=== PATIENT | male | born 1960 | race Caucasian/White ===

== ENCOUNTER 2016-07-02 13:44 | Inpatient (IN) | payer MEDICARE, MEDICAID ==
[2016-07-02] MEDS ORDERED: Albuterol/Ipratropium NEB.SOL* Albuterol 2.5 MG/Ipratropium 0.5 MG 3 ML INH ONE (13:57)
[2016-07-02] MEDS ORDERED: methylPREDNISolone 125 MG* 2 ML VIAL IV ONE (13:57)
[2016-07-02 14:18] LABS: Hematocrit 43 % (42-52); Hemoglobin 14.3 g/dl (14.0-18.0); Mean Corpuscular HGB Conc 33 g/dl (31-36); Mean Corpuscular Hemoglobin 30 pg (27-31); Mean Corpuscular Volume 91 fL (80-94); Mean Platelet Volume 8 um3 (7.4-10.4); Red Blood Count 4.76 10^6/ul (4.0-5.4); Red Cell Distribution Width 14 % (10.5-15); White Blood Count 11.4 10^3/ul (3.5-10.8)
[2016-07-02 14:37] LABS: PCO2 Arterial 72 mmHg (35-45)
[2016-07-02 14:37] LABS: BUN/Creatinine Ratio 19.8 (8-20); C Reactive Protein 7.83 mg/L (< 5.00); Calcium 9.2 mg/dL (8.6-10.3); EGFR African American 126.8 (>60); EGFR Non-African American 98.6 (>60); Globulin 2.9 g/dL (2-4); Potassium 4.6 mmol/L (3.5-5.0); Total Bilirubin 0.3 mg/dL (0.2-1.0); Total Protein 6.9 g/dL (6.4-8.9)
[2016-07-02 14:41] LABS: Troponin I 0.01 ng/mL (<0.04)
--- NOTE | 2016-07-02 14:49 | RAD ---
INDICATION: Chest pain. Short of breath COMPARISON: Chest x-ray March 23, 2016 TECHNIQUE: PA and lateral dual-energy views were obtained. FINDINGS: Bones/Soft Tissues: There are no acute bony findings. Cardiomediastinal: The cardiomediastinal silhouette is normal. The central pulmonary vessels and interstitium are prominent compatible with mild interstitial congestion Lungs: There are no infiltrates. Pleura: There are no pleural effusions. Other: None IMPRESSION: MILD INTERSTITIAL CONGESTION.
[2016-07-02] MEDS ORDERED: Albuterol 2.5 MG/3 ML NEB.SOL* (0.083%) INH PRN (15:41)
[2016-07-02] MEDS ORDERED: Ondansetron INJ* 2 MG/ML VIAL IV PRN (15:41)
[2016-07-02] MEDS ORDERED: NS 0.9% 1000 ML* 1,000 ML IV SCH (15:45)
[2016-07-02 15:59] LABS: EPAP 5; FIO2 40; IPAP 14; Resp Rate 14
[2016-07-02 16:02] LABS: PCO2 Arterial 68 mmHg (35-45)
[2016-07-02] MEDS: methylPREDNISolone 125 MG* 2 ML VIAL IV SCH ×2 (16:05→23:42)
[2016-07-02] MEDS ORDERED: Azithromycin IV* 500 MG ADVAN VIAL IVPB ONE (16:12)
--- NOTE | 2016-07-02 16:12 | ED ---
Mathieu Costello Erika, scribed for Jimmy Quezada MD on 07/02/16 at 1359 . Altered Mental Status - HPI Summary HPI Summary: Patient is a 56-year-old male presenting to the ED with a CC of possible AMS. Pt reports that he developed chest pain and SOB last night, but is unable to describe the pain. Pt also states he was "incoherent" this morning. When asked to further describe this, he just states "I got up early this morning." Hx diabetes, HTN, paranoid schizophrenia. Pt uses 1L O2 at home. LEVEL 5 CAVEAT - AMS. - History Of Current Complaint Stated Complaint: GENERAL ILLNESS Time Seen by Provider: 07/02/16 13:50 Hx Obtained From: Patient Hx From Patient Unobtainable Due To: Altered Mental Status Timing: Constant Severity Currently: Moderate Character: Confusion Aggravating Factor(s): Unknown Alleviating Factor(s): Unknown - Allergies/Home Medications Allergies/Adverse Reactions: Allergies Allergy/AdvReac Type Severity Reaction Status Date / Time Fish Allergy Allergy Unknown Verified 11/12/15 10:32 Reaction Details Haloperidol [From Haldol] Allergy Unknown Verified 11/12/15 10:32 Reaction Details Home Medications: Home Medications OLANzapine TAB* [ZyPREXA TAB*] 20 mg PO BEDTIME 07/02/16 [History Confirmed ] Paliperidone SUSTENNA* [Invega Sustenna*] 156 mg IM Q30D 07/02/16 [History Confirmed 07/02/16] Sertraline* [Zoloft*] 200 mg PO DAILY 07/02/16 [History Confirmed 07/02/16] PMH/Surg Hx/FS Hx/Imm Hx Endocrine/Hematology History: Reports: Hx Diabetes, Hx Thyroid Disease - hypo Cardiovascular History: Reports: Hx Hypercholesterolemia, Hx Hypertension - ON MEDS Denies: Other Cardiovascular Problems/Disorders Respiratory History: Reports: Hx Asthma, Hx Chronic Obstructive Pulmonary Disease (COPD), Hx Pneumonia Denies: Other Respiratory Problems/Disorders GI History: Denies: Other GI Disorders History: Reports: Hx Kidney Stones - 18 YRS AGO Musculoskeletal History: Reports: Hx Arthritis - BACK Sensory History: Reports: Hx Cataracts - PRITI, Hx Vision Problem - GLASSES Denies: Hx Hearing Aid Opthamlomology History: Reports: Hx Cataracts - PRITI, Hx Vision Problem - GLASSES Neurological History: Denies: Other Neuro Impairments/Disorders Psychiatric History: Reports: Hx Anxiety - ON MEDS, Hx Depression - MEDS, Hx Schizophrenia - Paranoid Denies: Hx Eating Disorder, Hx of Violent Episodes Against Others - Surgical History Surgery Procedure, Year, and Place: LEFT THUMB AGE 17 Hx Anesthesia Reactions: No - Family History Known Family History: Positive: Diabetes - Father, Other - negative hyperthermia , negative adverse reaction to anesthesia - Social History Alcohol Use: Occasionally Alcohol Amount: 12 beers a week Hx Substance Use: No Substance Use Type: Reports: None Hx Tobacco Use: Yes Smoking Status (MU): Heavy Every Day Tobacco Smoker Type: Cigarettes Amount Used/How Often: 2PPD Length of Time of Smoking/Using Tobacco: 30 years + Have You Smoked in the Last Year: Yes Review of Systems - ROS Summary Review of Systems Summary: LEVEL 5 CAVEAT - AMS. Positive: Chest Pain Positive: Shortness Of Breath Neurological: Other - AMS, confusion All Other Systems Reviewed And Are Negative: No Physical Exam - Summary Physical Exam Summary: VITAL SIGNS: Reviewed. GENERAL: Patient is an obese male who is lethargic and comfortable in the stretcher. Patient is not in any acute respiratory distress. HEAD AND FACE: No signs of trauma. No ecchymosis, hematomas or skull depressions. EYES: PERRLA, EOMI x 2 EARS: Hearing grossly intact. MOUTH: Oropharynx within normal limits. NECK: Supple, trachea is midline, no adenopathy, no JVD CHEST: Symmetric, no tenderness at palpation LUNGS: Clear to auscultation bilaterally. No wheezing or crackles. CVS: Regular rate and rhythm, S1 and S2 present, no murmurs or gallops appreciated. ABDOMEN: Soft, non-tender. Signs of distention secondary to obesity. Bowel sounds are normal. EXTREMITIES: FROM in all major joints, no edema, no cyanosis or clubbing. NEURO: Alert and oriented x 3. but he is lethargic. No acute neurological deficits. Speech is normal and follows commands. SKIN: Dry and warm Triage Information Reviewed: Yes Vital Signs On Initial Exam: Temp Pulse Resp BP Pulse Ox 97.9 F 84 18 115/65 95 07/02/16 13:45 07/02/16 14:10 07/02/16 13:45 07/02/16 13:45 07/02/16 14:10 Vital Signs Reviewed: Yes Completion Of Physical Exam Limited Due To: Altered Mental Status, Level 5 Diagnostics - Vital Signs Vital Signs Temp Pulse Resp BP Pulse Ox 07/02/16 15:54 85 17 98 07/02/16 14:52 85 16 96 07/02/16 14:10 84 95 07/02/16 13:45 97.9 F 82 18 115/65 94 - Laboratory Lab Results: Lab Results 07/02/16 07/02/16 07/02/16 Range/Units 14:03 14:03 14:03 WBC 11.4 H (3.5-10.8) 10^3/ul RBC 4.76 (4.0-5.4) 10^6/ul Hgb 14.3 (14.0-18.0) g/dl Hct 43 (42-52) % MCV 91 (80-94) fL MCH 30 (27-31) pg MCHC 33 (31-36) g/dl RDW 14 (10.5-15) % Plt Count 232 (150-450) 10^3/ul MPV 8 (7.4-10.4) um3 Neut % (Auto) 81.3 (38-83) % Lymph % (Auto) 10.7 L (25-47) % [place] % (Auto) 5.3 (1-9) % Eos % (Auto) 1.8 (0-6) % Baso % (Auto) 0.9 (0-2) % Absolute Neuts (auto) 9.3 H (1.5-7.7) 10^3/ul Absolute Lymphs (auto) 1.2 (1.0-4.8) 10^3/ul Absolute Monos (auto) 0.6 (0-0.8) 10^3/ul Absolute Eos (auto) 0.2 (0-0.6) 10^3/ul Absolute Basos (auto) 0.1 (0-0.2) 10^3/ul Absolute Nucleated RBC 0.01 10^3/ul Nucleated RBC % 0.1 Patient Temperature ABG pH (7.35-7.45) ABG pCO2 (35-45) mmHg ABG pO2 (80-100) mmHg ABG HCO3 (19-31) mmol/L ABG O2 Saturation (95-98) % ABG Base Excess (-2.0-2.0) Respiration Rate O2 Delivery Device Ventilator Type Vent Mode FiO2 Inspiratory Time PEEP Pressure Support Pressure Control EPAP IPAP BiPAP Sodium 130 L (133-145) mmol/L Potassium 4.6 (3.5-5.0) mmol/L Chloride 96 L (101-111) mmol/L Carbon Dioxide 31 (22-32) mmol/L Anion Gap 3 (2-11) mmol/L BUN 16 (6-24) mg/dL Creatinine 0.81 (0.67-1.17) mg/dL Est GFR ( Amer) 126.8 (>60) Est GFR (Non-Af Amer) 98.6 (>60) BUN/Creatinine Ratio 19.8 (8-20) Glucose 138 H (70-100) mg/dL Lactic Acid < 0.3 L (0.5-2.0) mmol/L Calcium 9.2 (8.6-10.3) mg/dL Total Bilirubin 0.30 (0.2-1.0) mg/dL AST 16 (13-39) U/L ALT 15 (7-52) U/L Alkaline Phosphatase 57 (34-104) U/L Total Creatine Kinase 143 (10-223) U/L CK-MB (CK-2) 4.7 (0.6-6.3) ng/mL Myoglobin 50.3 (17.4-105.7) ng/mL Troponin I 0.01 (<0.04) ng/mL C-Reactive Protein 7.83 H (< 5.00) mg/L B-Natriuretic Peptide ( - 100) pg/mL Total Protein 6.9 (6.4-8.9) g/dL Albumin 4.0 (3.2-5.2) g/dL Globulin 2.9 (2-4) g/dL Albumin/Globulin Ratio 1.4 (1-3) 07/02/16 07/02/16 07/02/16 Range/Units 14:03 14:08 15:53 WBC (3.5-10.8) 10^3/ul RBC (4.0-5.4) 10^6/ul Hgb (14.0-18.0) g/dl Hct (42-52) % MCV (80-94) fL MCH (27-31) pg MCHC (31-36) g/dl RDW (10.5-15) % Plt Count (150-450) 10^3/ul MPV (7.4-10.4) um3 Neut % (Auto) (38-83) % Lymph % (Auto) (25-47) % [place] % (Auto) (1-9) % Eos % (Auto) (0-6) % Baso % (Auto) (0-2) % Absolute Neuts (auto) (1.5-7.7) 10^3/ul Absolute Lymphs (auto) (1.0-4.8) 10^3/ul Absolute Monos (auto) (0-0.8) 10^3/ul Absolute Eos (auto) (0-0.6) 10^3/ul Absolute Basos (auto) (0-0.2) 10^3/ul Absolute Nucleated RBC 10^3/ul Nucleated RBC % Patient Temperature Not Reportable Not Reportable ABG pH 7.28 L Pending (7.35-7.45) ABG pCO2 72 H* Pending (35-45) mmHg ABG pO2 82 Pending (80-100) mmHg ABG HCO3 28.2 Pending (19-31) mmol/L ABG O2 Saturation 97.7 Pending (95-98) % ABG Base Excess 4.4 H Pending (-2.0-2.0) Respiration Rate Not Reportable 14 O2 Delivery Device 3 bipap Ventilator Type Not Reportable Not Reportable Vent Mode Not Reportable Not Reportable FiO2 Not Reportable 40 Inspiratory Time Not Reportable Not Reportable PEEP Not Reportable Not Reportable Pressure Support Not Reportable Not Reportable Pressure Control Not Reportable Not Reportable EPAP Not Reportable 5 IPAP Not Reportable 14 BiPAP Not Reportable Not Reportable Sodium (133-145) mmol/L Potassium (3.5-5.0) mmol/L Chloride (101-111) mmol/L Carbon Dioxide (22-32) mmol/L Anion Gap (2-11) mmol/L BUN (6-24) mg/dL Creatinine (0.67-1.17) mg/dL Est GFR ( Amer) (>60) Est GFR (Non-Af Amer) (>60) BUN/Creatinine Ratio (8-20) Glucose (70-100) mg/dL Lactic Acid (0.5-2.0) mmol/L Calcium (8.6-10.3) mg/dL Total Bilirubin (0.2-1.0) mg/dL AST (13-39) U/L ALT (7-52) U/L Alkaline Phosphatase (34-104) U/L Total Creatine Kinase (10-223) U/L CK-MB (CK-2) (0.6-6.3) ng/mL Myoglobin (17.4-105.7) ng/mL Troponin I (<0.04) ng/mL C-Reactive Protein (< 5.00) mg/L B-Natriuretic Peptide 15 ( - 100) pg/mL Total Protein (6.4-8.9) g/dL Albumin (3.2-5.2) g/dL Globulin (2-4) g/dL Albumin/Globulin Ratio (1-3) Result Diagrams: 07/02/16 14:03 07/02/16 14:03 Lab Statement: Any lab studies that have been ordered have been reviewed, and results considered in the medical decision making process. - Radiology CXR Radiology Interpretation Completed By: Radiologist - IMPRESSION: MILD INTERSTITIAL CONGESTION. - EKG 13:53 Cardiac Rate: NL - at 83 bpm EKG Rhythm: Sinus Rhythm EKG Interpretation: No ST elevation Altered Mental Statu Course/Dx - Course Assessment/Plan: Patient is a 56 y/o male who is lethargic and unable to give a good history. He is arausable and reports SOB and CP. He reports symptom since yesterday. Bloodwork WNL except WBC of 11.4, sodium of 130, and CRP of 7.83. CXR shows no acute pathology. Because of the lethargy of the pt, I did an ABG, and it shows the pt has CO2 retention. The pt was placed on BIPAP and given azithromycin since the pt has COPD. He is still aroausable and soing well in the BiPap. At this point I dont think he needs to be intubated. I discussed my PE and findings with Dr. Mariscal who accepted the patient for admission. Pt is hemodynamically stable. - Diagnoses Differential Diagnosis/HQI/PQRI: Hypoglycemia, Hypothermia, Intoxication Discharge Diagnoses: lethargy secondary to hypercapnia, Chest pain, COPD (chronic obstructive pulmonary disease), Hypoventilation associated with obesity syndrome - Provider Notifications Discussed Care Of Patient With: Dr. Mariscal (hospitalist) at 15:36 - agrees to admit Discharge - Discharge Plan Condition: Stable Disposition: ADMITTED TO [facility] Referrals: Chris Loyola MD [Primary Care Provider] - The documentation as recorded by the Mathieu lynne Erika accurately reflects the service I personally performed and the decisions made by , Jimmy Quezada MD.
[2016-07-02] MEDS: glipiZIDE TAB* 5 MG PO SCH (18:19)
[2016-07-02 19:34] LABS: Venous Bicarbonate HCO3 26.8 mmol/L (24-28)
[2016-07-02] MEDS: Docusate CAP* 100 MG PO SCH (20:24)
[2016-07-02] MEDS: OLANzapine TAB* 10 MG PO SCH (20:24)
[2016-07-02] MEDS: Acetaminophen TAB* 325 MG PO PRN (20:24)
[2016-07-02] MEDS: Atorvastatin* 20 MG TAB PO SCH (20:24)
[2016-07-02] MEDS: traZODone TAB* 50 MG TAB PO PRN (20:25)
--- NOTE | 2016-07-02 21:25 | HP ---
HISTORY AND PHYSICAL: DATE OF ADMISSION: 07/02/16 TIME OF MY EVALUATION: 3:30 p.m. PRIMARY CARE PROVIDER: Dr. Chris Loyola, [facility]. CHIEF COMPLAINT: Altered mental status, requesting mental health evaluation - hearing voices. HISTORY OF PRESENT ILLNESS: Mr. Mccallum is a medically complex 56-year-old gentleman with morbid obesity and BMI greater than 60 as well as chronic obstructive pulmonary disease as well as bipolar disease and asthma who presents to the emergency room with an altered mental status. He told the staff he was hearing voices and thought he needed a psychiatric evaluation. The patient was evaluated and found to be quite hypercarbic with a blood gas ultimately demonstrating a PCO2 of 72, arterial pH of 7.28 - incompletely compensated and altogether characteristic of acute hypercarbic respiratory failure with obtundation. The patient was urgently started on BiPAP -- 14 breaths per minute, 14/4 pressures, and 40% oxygen. The patient is comfortable with that setting. He was not able to answer many questions for me with the mask on in the emergency room. He did nod yes and no to basic questions, basically saying that he was agreeing that he was in his usual state of health until about 1 week prior when he felt progressive shortness of breath, then accompanying hallucinations which made him think it was an exacerbation of his schizophrenia. The patient is being placed in the ICU. A followup blood gas is pending at the time of this dictation and the patient has already been dosed with IV steroids and diagnosed with COPD exacerbation. PAST MEDICAL HISTORY: 1. COPD. 2. Asthma. 3. Anxiety. 4. Depression. 5. Schizophrenia. 6. Diabetes mellitus - [id number]. 7. Hypothyroidism - Synthroid replacement. 8. Chronic back pain. 9. Bipolar disorder. 10. Morbid obesity. 11. History of cardiac catheterization. 12. History of cataract extraction. 13. History of tooth extraction. 14. History of multiple pneumonias and previously hospitalized back in March for chronic obstructive pulmonary disease exacerbation. 15. History of ongoing tobacco abuse. 16. History of medical noncompliance as characterized during the hospitalization back in March 2016. OUTPATIENT MEDICATIONS: 1. Invega 156 mg intramuscularly monthly. 2. Levothyroxine 112 mcg daily. 3. Linagliptin/Tradjenta 5 mg by mouth daily. 4. Lisinopril 10 mg by mouth daily. 5. Zyprexa/olanzapine 20 mg by mouth at bedtime. 6. Sertraline/Zoloft 200 mg by mouth daily. 7. Simvastatin/Zocor 40 mg by mouth at bedtime. 8. Glipizide 5 mg by mouth twice daily with meals. 9. Trazodone 50 mg by mouth at bedtime. ALLERGIES: HALDOL/FISH. FAMILY HISTORY: Reviewed and noncontributory based on this presentation of a known patient with COPD and morbid obesity with hypercarbic respiratory failure. SOCIAL HISTORY: This patient is still smoking by report. He nodded, but did not quantify verbally because of his BiPAP. No alcohol use currently. This will be confirmed. No recreational drug use. The patient is disabled. He lives in the community. REVIEW OF SYSTEMS: A full review of systems was not accomplished. There were some basic questions asked. His presentation was really around his altered mental status and not many other symptoms were reported. PHYSICAL EXAMINATION GENERAL APPEARANCE: Morbidly obese, middle-aged man appears approximately stated age. No apparent distress at this time. He is breathing in sync with the BiPAP machine. He opens his eyes in response to questions, but is not communicative secondary to his current state. VITAL SIGNS: On admission, temperature 97.9 degrees Fahrenheit, pulse 80s and regular, respirations difficult to assess secondary to ongoing BiPAP. He is breathing in sync with a vent with a rate of approximately 16 to 20 breaths per minute. He is not in extremis. Oxygen saturation 94% currently on BiPAP settings as described below. Blood pressure 115/65. BiPAP settings: 14 breaths per minute (backup rate), pressure settings 14/5 mmHg, (IPAP/EPAP), 40% FIO2. HEENT: Oropharynx is clear. Mucous membranes are moist, but obscured by mask. NECK: Supple. No elevated JVD. He is obese. Landmarks are obscured. CHEST: Distant sounds again confounded by BiPAP machine. Could not listen posteriorly secondary to morbid obesity and current mental state. ABDOMEN: Morbidly obese, but nontender. Skin is dry and intact. EXTREMITIES: Without clubbing, cyanosis, or edema. NEUROLOGIC: Unable to fully assess, but moves all extremities spontaneously. PSYCH: Unable to assess secondary to BiPAP - known schizophrenia with anxiety and depression. LYMPHS: No adenopathy appreciated on exam. ADMISSION DATA: Arterial blood gas, 7.28/72/82 - 3 L nasal cannula - BiPAP started , 29/10; 40% - repeat ABGs pending now. White blood cell count 11.4, hemoglobin 14.3, platelets 232. Blood chemistry significant for sodium depressed at 130, potassium 4.6, chloride 96, bicarb 31, BUN 16, creatinine 0.81, glucose 138, lactic acid less than 0.3 (negative). LFTs normal. CRP elevated at 7.83. Albumin 4.0. Total protein preserved at 6.9. BNP 15. Chest x-ray shows no active disease in the pulmonary parenchyma, but potential mild interstitial congestion. IMPRESSION: Mr. Mccallum is a 56-year-old gentleman with known chronic obstructive pulmonary disease and morbid obesity who presents with hypercarbic respiratory failure with PCO2 of approximately 80 with obtundation and an acid base analysis signifying this is an acute process which would certainly explain his altered mental status. 1. Acute hypercarbic respiratory failure: We will admit the patient to the ICU for close monitoring and acute BiPAP with settings described above. A repeat ABG is in process and we will check another VBG in 2 hours to ensure the patient is not further retaining carbon dioxide. This does not seem to be a problem with his ability to oxygenate and the patient seems to be having a chronic obstructive pulmonary disease exacerbation which he suffered back in March 2016. We will start the patient on IV steroids, 60 mg IV Solu-Medrol every 8 hours with reevaluation and assessment and better pulmonary exams when the patient is off BiPAP. The patient will also receive IV azithromycin to treat any atypical organism that may be exacerbating his COPD. 2. Hypothyroidism: We will continue levothyroxine at outpatient dosing. 3. Schizophrenia - unclear whether his hallucinations have anything to do with his schizophrenia. It seems most likely that his hallucinations are secondary to his hypercarbia, but one cannot be certain. So, we will reevaluate when his ABG/pCO2 is better. Continue olanzapine for now. 4. Pain - continue trazodone as previously prescribed. 5. Diabetes - continue Tradjenta and glipizide as per outpatient regimen. Diabetic diet when he is tolerating oral diet. 6. N.p.o. for now. 7. Full code. 8. Frequent reassessments and psychiatric evaluation if need be when his respiratory status is stabilized. TIME SPENT: Total time taken to admit Mr. Mccallum was 75 minutes, greater than half the time spent in the emergency room going over the history and physical examination, explaining the plan of care to the patient at the bedside. He agreed with my plan by nodding although he was unable to speak with me because of the BiPAP. CC: Dr. Chris Loyola * [id number]/CPS #: [id number] [facility]
[2016-07-02] MEDS: Heparin VIAL(*) 5000 UNITS/ML VIAL (FIVE THOUSAND) SUBCUT SCH (22:36)
[2016-07-03] MEDS: Levothyroxine TAB* 112 MCG TAB PO SCH (05:36)
[2016-07-03] MEDS: Heparin VIAL(*) 5000 UNITS/ML VIAL (FIVE THOUSAND) SUBCUT SCH ×3 (05:36→22:06)
[2016-07-03 06:16] LABS: Hematocrit 45 % (42-52); Hemoglobin 14.7 g/dl (14.0-18.0); Mean Corpuscular HGB Conc 33 g/dl (31-36); Mean Corpuscular Hemoglobin 30 pg (27-31); Mean Corpuscular Volume 91 fL (80-94); Mean Platelet Volume 8 um3 (7.4-10.4); Red Blood Count 4.95 10^6/ul (4.0-5.4); Red Cell Distribution Width 14 % (10.5-15); White Blood Count 12.2 10^3/ul (3.5-10.8)
[2016-07-03 06:38] LABS: BUN/Creatinine Ratio 25.3 (8-20); Calcium 9.1 mg/dL (8.6-10.3); EGFR African American 105.5 (>60); Potassium 4.9 mmol/L (3.5-5.0)
[2016-07-03] MEDS ORDERED: Dextrose 50% Syringe 50 ML* 25 GM/50 ML SYRINGE IV PUSH PRN (07:54)
--- NOTE | 2016-07-03 08:16 | PN ---
Subjective Date of Service: 07/03/16 Interval History: He states he last smoked about 10 hours ago, also that he has dark sputum. Objective Active Medications: Acetaminophen (Tylenol Tab*) 650 mg PO Q4H PRN PRN Reason: FEVER/PAIN Last Admin: 07/02/16 20:24 Dose: 650 mg Albuterol (Ventolin 2.5 Mg/3 Ml Neb.Manisha*) 2.5 mg INH [id number] AWAKE PRN PRN Reason: sob/wheezing Atorvastatin Calcium (Lipitor*) 40 mg PO BEDTIME [facility] Last Admin: 07/02/16 20:24 Dose: 40 mg Dextrose (D50w Syringe 50 Ml*) 12.5 gm IV PUSH .FOR FS < 60 - SS PRN PRN Reason: FS < 60 Docusate Sodium (Colace Cap*) 100 mg PO BID [facility] Last Admin: 07/02/16 20:24 Dose: 100 mg Glipizide (Glucotrol Tab*) 5 mg PO BID AC [facility] Last Admin: 07/02/16 18:19 Dose: Not Given Guaifenesin (Robitussin*) 10 ml PO QID [facility] Heparin Sodium (Porcine) (Heparin Vial(*)) 5,000 units SUBCUT Q8HR [facility] Last Admin: 07/03/16 05:36 Dose: 5,000 units Insulin Human Lispro (Humalog*) 0 units SUBCUT ACHS [facility] PRN Reason: Protocol Levothyroxine Sodium (Synthroid Tab*) 112 mcg PO 0600 [facility] Last Admin: 07/03/16 05:36 Dose: 112 mcg Linagliptin (Tradjenta (Nf)) 5 mg PO DAILY [facility] Lisinopril (Prinivil Tab*) 10 mg PO DAILY [facility] Olanzapine (Zyprexa Tab*) 20 mg PO BEDTIME [facility] Last Admin: 07/02/16 20:24 Dose: 20 mg Ondansetron HCl (Zofran Inj*) 4 mg IV Q4H PRN PRN Reason: NAUSEA/VOMITING Prednisone (Deltasone Tab*) 60 mg PO DAILY [facility] Sertraline HCl (Zoloft*) 200 mg PO DAILY [facility] Trazodone HCl (Desyrel Tab*) 50 mg PO BEDTIME PRN PRN Reason: SLEEP Last Admin: 07/02/16 20:25 Dose: 50 mg Vital Signs 0107/02/16 07/02/16 15:54 16:00 16:16 Temperature Pulse Rate 85 82 76 Respiratory 17 16 17 Rate Blood Pressure (mmHg) O2 Sat by Pulse 98 96 Oximetry 07/02/16 07/02/16 07/02/16 16:41 16:48 16:52 Temperature 97.1 F Pulse Rate 73 75 79 Respiratory 8 14 26 Rate Blood Pressure 98/36 71/52 98/36 (mmHg) O2 Sat by Pulse 93 91 94 Oximetry 07/02/16 07/02/16 07/02/16 17:00 17:30 17:32 Temperature 97.1 F Pulse Rate 75 86 Respiratory 16 8 14 Rate Blood Pressure 84/49 94/48 (mmHg) O2 Sat by Pulse 93 90 Oximetry 07/02/16 07/02/16 07/02/16 18:00 18:30 19:00 Temperature 97.1 F Pulse Rate 81 83 82 Respiratory 14 23 14 Rate Blood Pressure 101/52 119/62 126/74 (mmHg) O2 Sat by Pulse 93 94 93 Oximetry 07/02/16 07/02/16 07/02/16 19:30 19:48 20:00 Temperature 97.4 F Pulse Rate 78 96 Respiratory 12 14 Rate Blood Pressure 99/53 164/75 (mmHg) O2 Sat by Pulse 95 95 Oximetry 07/02/16 07/02/16 07/02/16 21:00 22:00 22:35 Temperature Pulse Rate 88 88 86 Respiratory 17 13 11 Rate Blood Pressure 140/68 120/58 (mmHg) O2 Sat by Pulse 88 94 93 Oximetry 07/02/16 07/02/16 07/03/16 23:00 23:41 00:00 Temperature 97.7 F Pulse Rate 82 93 Respiratory 11 20 Rate Blood Pressure 101/50 (mmHg) O2 Sat by Pulse 93 94 Oximetry 07/03/16 07/03/16 07/03/16 00:02 01:00 02:00 Temperature Pulse Rate 83 81 86 Respiratory 18 13 19 Rate Blood Pressure 127/54 123/54 (mmHg) O2 Sat by Pulse 96 98 99 Oximetry 07/03/16 07/03/16 07/03/16 02:27 02:48 03:00 Temperature Pulse Rate 80 71 79 Respiratory 21 15 11 Rate Blood Pressure 99/88 104/51 (mmHg) O2 Sat by Pulse 98 99 97 Oximetry 07/03/16 07/03/16 07/03/16 04:00 05:00 06:00 Temperature 98.5 F Pulse Rate 64 70 76 Respiratory 12 13 13 Rate Blood Pressure 119/65 123/67 (mmHg) O2 Sat by Pulse 96 96 98 Oximetry 07/03/16 07:26 Temperature 97.0 F Pulse Rate Respiratory Rate Blood Pressure (mmHg) O2 Sat by Pulse Oximetry Oxygen Devices in Use Now: CPAP/BiPAP Appearance: Alert, on R side in ICU bed. Neutral affect. Looks comfortable. No cough during my visit. Eyes: No Scleral Icterus Ears/Nose/Mouth/Throat: Clear Oropharnyx, Mucous Membranes Moist Neck: NL Appearance and Movements; NL JVP, No Thyroid Enlargement, Masses Respiratory: Symmetrical Chest Expansion and Respiratory Effort, Clear to Percussion - Diminished BS BL Cardiovascular: NL Sounds; No Murmurs; No JVD, RRR, No Edema, - Extremities: No Edema, No Clubbing, Cyanosis, - Skin: No Rash or Ulcers, No Nodules or Sclerosis, - Neurological: Alert and Oriented x 3, NL Sensation - Flat affect Result Diagrams: 07/03/16 05:50 07/03/16 05:50 Additional Lab and Data: Lab Results 07/02/16 07/02/16 07/02/16 Range/Units 14:03 14:03 14:03 WBC 11.4 H (3.5-10.8) 10^3/ul RBC 4.76 (4.0-5.4) 10^6/ul Hgb 14.3 (14.0-18.0) g/dl Hct 43 (42-52) % MCV 91 (80-94) fL MCH 30 (27-31) pg MCHC 33 (31-36) g/dl RDW 14 (10.5-15) % Plt Count 232 (150-450) 10^3/ul MPV 8 (7.4-10.4) um3 Neut % (Auto) 81.3 (38-83) % Lymph % (Auto) 10.7 L (25-47) % [place] % (Auto) 5.3 (1-9) % Eos % (Auto) 1.8 (0-6) % Baso % (Auto) 0.9 (0-2) % Absolute Neuts (auto) 9.3 H (1.5-7.7) 10^3/ul Absolute Lymphs (auto) 1.2 (1.0-4.8) 10^3/ul Absolute Monos (auto) 0.6 (0-0.8) 10^3/ul Absolute Eos (auto) 0.2 (0-0.6) 10^3/ul Absolute Basos (auto) 0.1 (0-0.2) 10^3/ul Absolute Nucleated RBC 0.01 10^3/ul Nucleated RBC % 0.1 Patient Temperature ABG pH (7.35-7.45) ABG pCO2 (35-45) mmHg ABG pO2 (80-100) mmHg ABG HCO3 (19-31) mmol/L ABG O2 Saturation (95-98) % ABG Base Excess (-2.0-2.0) Respiration Rate O2 Delivery Device Ventilator Type Vent Mode FiO2 Inspiratory Time PEEP Pressure Support Pressure Control EPAP IPAP BiPAP Sodium 130 L (133-145) mmol/L Potassium 4.6 (3.5-5.0) mmol/L Chloride 96 L (101-111) mmol/L Carbon Dioxide 31 (22-32) mmol/L Anion Gap 3 (2-11) mmol/L BUN 16 (6-24) mg/dL Creatinine 0.81 (0.67-1.17) mg/dL Est GFR ( Amer) 126.8 (>60) Est GFR (Non-Af Amer) 98.6 (>60) BUN/Creatinine Ratio 19.8 (8-20) Glucose 138 H (70-100) mg/dL Lactic Acid < 0.3 L (0.5-2.0) mmol/L Calcium 9.2 (8.6-10.3) mg/dL Total Bilirubin 0.30 (0.2-1.0) mg/dL AST 16 (13-39) U/L ALT 15 (7-52) U/L Alkaline Phosphatase 57 (34-104) U/L Total Creatine Kinase 143 (10-223) U/L CK-MB (CK-2) 4.7 (0.6-6.3) ng/mL Myoglobin 50.3 (17.4-105.7) ng/mL Troponin I 0.01 (<0.04) ng/mL C-Reactive Protein 7.83 H (< 5.00) mg/L B-Natriuretic Peptide ( - 100) pg/mL Total Protein 6.9 (6.4-8.9) g/dL Albumin 4.0 (3.2-5.2) g/dL Globulin 2.9 (2-4) g/dL Albumin/Globulin Ratio 1.4 (1-3) 07/02/16 07/02/16 07/02/16 Range/Units 14:03 14:08 15:53 WBC (3.5-10.8) 10^3/ul RBC (4.0-5.4) 10^6/ul Hgb (14.0-18.0) g/dl Hct (42-52) % MCV (80-94) fL MCH (27-31) pg MCHC (31-36) g/dl RDW (10.5-15) % Plt Count (150-450) 10^3/ul MPV (7.4-10.4) um3 Neut % (Auto) (38-83) % Lymph % (Auto) (25-47) % Hardy % (Auto) (1-9) % Eos % (Auto) (0-6) % Baso % (Auto) (0-2) % Absolute Neuts (auto) (1.5-7.7) 10^3/ul Absolute Lymphs (auto) (1.0-4.8) 10^3/ul Absolute Monos (auto) (0-0.8) 10^3/ul Absolute Eos (auto) (0-0.6) 10^3/ul Absolute Basos (auto) (0-0.2) 10^3/ul Absolute Nucleated RBC 10^3/ul Nucleated RBC % Patient Temperature Not Reportable Not Reportable ABG pH 7.28 L Pending (7.35-7.45) ABG pCO2 72 H* Pending (35-45) mmHg ABG pO2 82 Pending (80-100) mmHg ABG HCO3 28.2 Pending (19-31) mmol/L ABG O2 Saturation 97.7 Pending (95-98) % ABG Base Excess 4.4 H Pending (-2.0-2.0) Respiration Rate Not Reportable 14 O2 Delivery Device 3 bipap Ventilator Type Not Reportable Not Reportable Vent Mode Not Reportable Not Reportable FiO2 Not Reportable 40 Inspiratory Time Not Reportable Not Reportable PEEP Not Reportable Not Reportable Pressure Support Not Reportable Not Reportable Pressure Control Not Reportable Not Reportable EPAP Not Reportable 5 IPAP Not Reportable 14 BiPAP Not Reportable Not Reportable Sodium (133-145) mmol/L Potassium (3.5-5.0) mmol/L Chloride (101-111) mmol/L Carbon Dioxide (22-32) mmol/L Anion Gap (2-11) mmol/L BUN (6-24) mg/dL Creatinine (0.67-1.17) mg/dL Est GFR ( Amer) (>60) Est GFR (Non-Af Amer) (>60) BUN/Creatinine Ratio (8-20) Glucose (70-100) mg/dL Lactic Acid (0.5-2.0) mmol/L Calcium (8.6-10.3) mg/dL Total Bilirubin (0.2-1.0) mg/dL AST (13-39) U/L ALT (7-52) U/L Alkaline Phosphatase (34-104) U/L Total Creatine Kinase (10-223) U/L CK-MB (CK-2) (0.6-6.3) ng/mL Myoglobin (17.4-105.7) ng/mL Troponin I (<0.04) ng/mL C-Reactive Protein (< 5.00) mg/L B-Natriuretic Peptide 15 ( - 100) pg/mL Total Protein (6.4-8.9) g/dL Albumin (3.2-5.2) g/dL Globulin (2-4) g/dL Albumin/Globulin Ratio (1-3) Assess/Plan/Problems-Billing Assessment: - Patient Problems (1) COPD exacerbation Current Visit: No Status: Acute Code(s): J44.1 - CHRONIC OBSTRUCTIVE PULMONARY DISEASE W (ACUTE) EXACERBATION SNOMED Code(s): 184351741 Comment: Prednisone taper. Continue Spiriva, Dulera, prn albuterol. Continue Azithromycin. Overnight oximetry off NIPPV. Diet ordered. CO2 retention noted. (2) DM type 2 (diabetes mellitus, type 2) Current Visit: No Status: Chronic Priority: Medium Comment: Glipizide, Lispro by SS ordered. (3) Tobacco abuse Current Visit: No Status: Chronic Code(s): Z72.0 - TOBACCO USE SNOMED Code (s): 982268063 Comment: Pt advised to quit smoking and avoid second hand smoke. (4) Hypothyroidism Current Visit: No Status: Acute Code(s): E03.9 - HYPOTHYROIDISM, UNSPECIFIED SNOMED Code(s): 81440477 Comment: Continue synthroid. TSH wnl 01/20/16. Addon TSH ordered. (5) Morbid obesity Current Visit: No Status: Chronic Code(s): E66.01 - MORBID (SEVERE) OBESITY DUE TO EXCESS CALORIES SNOMED Code(s): 651256129 Comment: BMI 52.8.
[2016-07-03] MEDS ORDERED: predniSONE TAB* 10 MG PO SCH (09:00)
[2016-07-03] MEDS: Docusate CAP* 100 MG PO SCH ×2 (09:12→22:07)
[2016-07-03] MEDS: Sertraline* 100 MG TAB PO SCH (09:12)
[2016-07-03] MEDS: Lisinopril TAB* 10 MG PO SCH (09:12)
[2016-07-03] MEDS: Linagliptin (NF) 5 MG TAB PO SCH (09:13)
[2016-07-03 09:23] LABS: TSH (Thyroid Stimulating Horm) 1.91 mcIU/mL (0.34-5.60)
[2016-07-03] MEDS: glipiZIDE TAB* 5 MG PO SCH ×2 (09:26→16:12)
[2016-07-03] MEDS: guaiFENesin LIQ* 100 MG/5 ML UDC PO SCH ×4 (09:26→22:07)
[2016-07-03] MEDS: Insulin LISPRO* 1 UNITS UNIT SUBCUT SCH ×4 (09:31→22:07)
--- NOTE | 2016-07-03 12:31 | CONSULT ---
Identification - Patient Identification Reason for Psychiatric Consultation: Other - Mental status change. -: Patient is a 56 year old, M admitted on 07/02/16. - MHU Identification Employment Status: Disabled Hx Psychiatric Hospitalization: Yes - Many on [facility] Arrived to Hospital Via: Ambulance History - Objective HPI: Mr. Nelson known to psychiatry from prior admissions to is admitted to ICU with sudden physical health change resulting in mental status change. The clinical presentation, physical examination, Radiological and lab results indicate a state of hypercarbia( PCO2 of 72 and arterial pH 7.28) Patient at this time remains mildly delirious and denies any major mental health problems which needs immediate attention. He denies any violent thoughts towards self or others. Reliability of his answer may be questionable and will improve as his acute medical condition resolve. If not please contact us again for a f/u assessment. May resume all home psychotropic meds as he tolerates. Thank for the consult request. Lab Results: Laboratory Tests 07/02/16 07/02/16 07/03/16 15:53 19:25 05:50 WBC RBC Hgb Hct MCV MCH MCHC RDW Plt Count MPV Neut % (Auto) Lymph % (Auto) [place] % (Auto) Eos % (Auto) Baso % (Auto) Absolute Neuts (auto) Absolute Lymphs (auto) Absolute Monos (auto) Absolute Eos (auto) Absolute Basos (auto) Absolute Nucleated RBC Nucleated RBC % Patient Temperature Not Reportable ABG pH 7.22 L ABG pCO2 68 H ABG pO2 118 H ABG HCO3 23.9 ABG O2 Saturation 99.0 H ABG Base Excess -1.2 VBG pH 7.25 L VBG pCO2 76 H VBG pO2 42 VBG HCO3 26.8 VBG O2 Saturation 79.0 VBG Base Excess 3.3 Respiration Rate 14 O2 Delivery Device bipap Ventilator Type Not Reportable Vent Mode Not Reportable FiO2 40 Inspiratory Time Not Reportable PEEP Not Reportable Pressure Support Not Reportable Pressure Control Not Reportable EPAP 5 IPAP 14 BiPAP Not Reportable Sodium 134 Potassium 4.9 Chloride 96 L Carbon Dioxide 35 H Anion Gap 3 BUN 24 Creatinine 0.95 Est GFR ( Amer) 105.5 Est GFR (Non-Af Amer) 82.0 BUN/Creatinine Ratio 25.3 H Glucose 211 H Lactic Acid Calcium 9.1 07/03/16 07/03/16 05:50 05:50 WBC 12.2 H RBC 4.95 Hgb 14.7 Hct 45 MCV 91 MCH 30 MCHC 33 RDW 14 Plt Count 207 MPV 8 Neut % (Auto) 95.6 H Lymph % (Auto) 3.2 L [place] % (Auto) 1.1 Eos % (Auto) 0 Baso % (Auto) 0.1 Absolute Neuts (auto) 11.6 H Absolute Lymphs (auto) 0.4 L Absolute Monos (auto) 0.1 Absolute Eos (auto) 0 Absolute Basos (auto) 0 Absolute Nucleated RBC 0 Nucleated RBC % 0 Patient Temperature ABG pH ABG pCO2 ABG pO2 ABG HCO3 ABG O2 Saturation ABG Base Excess VBG pH VBG pCO2 VBG pO2 VBG HCO3 VBG O2 Saturation VBG Base Excess Respiration Rate O2 Delivery Device Ventilator Type Vent Mode FiO2 Inspiratory Time PEEP Pressure Support Pressure Control EPAP IPAP BiPAP Sodium Potassium Chloride Carbon Dioxide Anion Gap BUN Creatinine Est GFR ( Amer) Est GFR (Non-Af Amer) BUN/Creatinine Ratio Glucose Lactic Acid 0.9 Calcium Plan - Treatment Plan Medications: Current Medications Acetaminophen (Tylenol Tab*) 650 mg PO Q4H PRN PRN Reason: FEVER/PAIN Last Admin: 07/02/16 20:24 Dose: 650 mg Albuterol (Ventolin 2.5 Mg/3 Ml Neb.Manisha*) 2.5 mg INH [id number] AWAKE PRN PRN Reason: sob/wheezing Atorvastatin Calcium (Lipitor*) 40 mg PO BEDTIME [facility] Last Admin: 07/02/16 20:24 Dose: 40 mg Dextrose (D50w Syringe 50 Ml*) 12.5 gm IV PUSH .FOR FS < 60 - SS PRN PRN Reason: FS < 60 Docusate Sodium (Colace Cap*) 100 mg PO BID [facility] Last Admin: 07/03/16 09:12 Dose: 100 mg Glipizide (Glucotrol Tab*) 5 mg PO BID AC [facility] Last Admin: 07/03/16 09:26 Dose: 5 mg Guaifenesin (Robitussin*) 10 ml PO QID [facility] Last Admin: 07/03/16 09:26 Dose: 10 ml Heparin Sodium (Porcine) (Heparin Vial(*)) 5,000 units SUBCUT Q8HR [facility] Last Admin: 01/16/17 05:36 Dose: 5,000 units Insulin Human Lispro (Humalog*) 0 units SUBCUT ACHS [facility] PRN Reason: Protocol Last Admin: 07/03/16 09:31 Dose: 6 unit Levothyroxine Sodium (Synthroid Tab*) 112 mcg PO 0600 [facility] Last Admin: 07/03/16 05:36 Dose: 112 mcg Linagliptin (Tradjenta (Nf)) 5 mg PO DAILY [facility] Last Admin: 07/03/16 09:13 Dose: Not Given Lisinopril (Prinivil Tab*) 10 mg PO DAILY [facility] Last Admin: 07/03/16 09:12 Dose: 10 mg Olanzapine (Zyprexa Tab*) 20 mg PO BEDTIME [facility] Last Admin: 07/02/16 20:24 Dose: 20 mg Ondansetron HCl (Zofran Inj*) 4 mg IV Q4H PRN PRN Reason: NAUSEA/VOMITING Prednisone (Deltasone Tab*) 60 mg PO DAILY [facility] Last Admin: 07/03/16 09:12 Dose: 60 mg Sertraline HCl (Zoloft*) 200 mg PO DAILY [facility] Last Admin: 07/03/16 09:12 Dose: 200 mg Trazodone HCl (Desyrel Tab*) 50 mg PO BEDTIME PRN PRN Reason: SLEEP Last Admin: 07/02/16 20:25 Dose: 50 mg
[2016-07-03 13:17] LABS: Urine Bilirubin Negative (Negative); Urine Glucose 2+(150 mg/dL) (Negative); Urine Nitrite Negative (Negative)
[2016-07-03] MEDS: Acetaminophen TAB* 325 MG PO PRN (16:12)
[2016-07-03] MEDS: Atorvastatin* 20 MG TAB PO SCH (22:07)
[2016-07-03] MEDS: OLANzapine TAB* 10 MG PO SCH (22:07)
[2016-07-04] MEDS: Levothyroxine TAB* 112 MCG TAB PO SCH (07:23)
[2016-07-04] MEDS: Heparin VIAL(*) 5000 UNITS/ML VIAL (FIVE THOUSAND) SUBCUT SCH ×3 (07:23→22:05)
[2016-07-04] MEDS ORDERED: predniSONE TAB* 10 MG PO ONE (07:43)
--- NOTE | 2016-07-04 07:44 | PN ---
Subjective Date of Service: 07/04/16 Interval History: No new c/o. Cough better. Objective Active Medications: Acetaminophen (Tylenol Tab*) 650 mg PO Q4H PRN PRN Reason: FEVER/PAIN Last Admin: 07/03/16 16:12 Dose: 650 mg Albuterol (Ventolin 2.5 Mg/3 Ml Neb.Manisha*) 2.5 mg INH RT.[id number] AWAKE PRN PRN Reason: sob/wheezing Atorvastatin Calcium (Lipitor*) 40 mg PO BEDTIME [facility] Last Admin: 07/03/16 22:07 Dose: 40 mg Dextrose (D50w Syringe 50 Ml*) 12.5 gm IV PUSH .FOR FS < 60 - SS PRN PRN Reason: FS < 60 Docusate Sodium (Colace Cap*) 100 mg PO BID [facility] Last Admin: 07/03/16 22:07 Dose: 100 mg Glipizide (Glucotrol Tab*) 5 mg PO BID AC [facility] Last Admin: 07/03/16 16:12 Dose: 5 mg Guaifenesin (Robitussin*) 10 ml PO QID [facility] Last Admin: 07/03/16 22:07 Dose: 10 ml Heparin Sodium (Porcine) (Heparin Vial(*)) 5,000 units SUBCUT Q8HR [facility] Last Admin: 07/04/16 07:23 Dose: 5,000 units Insulin Human Lispro (Humalog*) 0 units SUBCUT ACHS [facility] PRN Reason: Protocol Last Admin: 07/03/16 22:07 Dose: 3 unit Levothyroxine Sodium (Synthroid Tab*) 112 mcg PO 0600 [facility] Last Admin: 07/04/16 07:23 Dose: 112 mcg Linagliptin (Tradjenta (Nf)) 5 mg PO DAILY [facility] Last Admin: 07/03/16 09:13 Dose: Not Given Lisinopril (Prinivil Tab*) 10 mg PO DAILY [facility] Last Admin: 07/03/16 09:12 Dose: 10 mg Olanzapine (Zyprexa Tab*) 20 mg PO BEDTIME [facility] Last Admin: 07/03/16 22:07 Dose: 20 mg Ondansetron HCl (Zofran Inj*) 4 mg IV Q4H PRN PRN Reason: NAUSEA/VOMITING Prednisone (Deltasone Tab*) 60 mg PO DAILY [facility] Last Admin: 07/03/16 09:12 Dose: 60 mg Sertraline HCl (Zoloft*) 200 mg PO DAILY [facility] Last Admin: 07/03/16 09:12 Dose: 200 mg Trazodone HCl (Desyrel Tab*) 50 mg PO BEDTIME PRN PRN Reason: SLEEP Last Admin: 07/02/16 20:25 Dose: 50 mg Vital Signs 07/03/16 07/03/16 07/03/16 08:00 08:35 09:00 Temperature Pulse Rate 77 86 Respiratory 15 17 Rate Blood Pressure 113/36 139/64 (mmHg) O2 Sat by Pulse 96 96 92 Oximetry 07/03/16 07/03/16 07/03/16 09:13 10:00 11:00 Temperature Pulse Rate 98 93 Respiratory 24 19 Rate Blood Pressure 130/51 (mmHg) O2 Sat by Pulse 90 90 93 Oximetry 07/03/16 07/03/16 07/03/16 11:06 12:00 13:00 Temperature 98.8 F Pulse Rate 94 86 87 Respiratory 16 17 16 Rate Blood Pressure 150/52 162/73 158/71 (mmHg) O2 Sat by Pulse 93 92 89 Oximetry 07/03/16 07/03/16 07/03/16 13:54 14:00 14:14 Temperature Pulse Rate 95 97 Respiratory 17 19 17 Rate Blood Pressure 138/49 (mmHg) O2 Sat by Pulse 91 92 Oximetry 07/03/16 07/03/16 07/03/16 15:00 15:37 16:00 Temperature 100.3 F Pulse Rate 101 95 Respiratory 18 21 Rate Blood Pressure 136/38 147/69 (mmHg) O2 Sat by Pulse 90 94 Oximetry 07/03/16 07/03/16 07/03/16 17:00 18:00 19:00 Temperature Pulse Rate 94 96 90 Respiratory 18 18 17 Rate Blood Pressure 154/74 158/71 170/63 (mmHg) O2 Sat by Pulse 92 93 92 Oximetry 07/03/16 07/03/16 07/03/16 19:08 20:00 20:30 Temperature 98.9 F Pulse Rate Respiratory 18 18 Rate Blood Pressure 176/72 (mmHg) O2 Sat by Pulse Oximetry 07/03/16 07/03/16 07/03/16 20:32 20:34 21:00 Temperature Pulse Rate Respiratory 18 18 18 Rate Blood Pressure 117/63 (mmHg) O2 Sat by Pulse Oximetry 07/03/16 07/03/16 07/03/16 22:00 22:17 23:00 Temperature Pulse Rate 79 82 77 Respiratory 17 15 17 Rate Blood Pressure 120/57 125/69 (mmHg) O2 Sat by Pulse 92 90 93 Oximetry 07/03/16 07/04/16 07/04/16 23:42 00:00 00:01 Temperature 98.8 F Pulse Rate 77 78 Respiratory 16 15 Rate Blood Pressure 126/64 (mmHg) O2 Sat by Pulse 92 93 Oximetry 07/04/16 07/04/16 07/04/16 01:00 02:00 03:00 Temperature Pulse Rate 74 79 82 Respiratory 15 17 17 Rate Blood Pressure 128/62 114/59 148/70 (mmHg) O2 Sat by Pulse 93 92 92 Oximetry 07/04/16 07/04/16 07/04/16 03:58 04:00 04:15 Temperature 98.8 F Pulse Rate 82 Respiratory 18 19 Rate Blood Pressure 117/64 (mmHg) O2 Sat by Pulse 91 Oximetry 07/04/16 07/04/16 07/04/16 05:00 06:00 07:00 Temperature Pulse Rate 74 71 87 Respiratory 15 13 24 Rate Blood Pressure (mmHg) O2 Sat by Pulse 91 93 94 Oximetry 07/04/16 07:30 Temperature 98.2 F Pulse Rate Respiratory Rate Blood Pressure (mmHg) O2 Sat by Pulse Oximetry Oxygen Devices in Use Now: Nasal Cannula Appearance: Alert, partly up in ICU bed. Flat affect. Looks comfortable. No cough during my visit. Eyes: No Scleral Icterus Ears/Nose/Mouth/Throat: Clear Oropharnyx, Mucous Membranes Moist Neck: NL Appearance and Movements; NL JVP, No Thyroid Enlargement, Masses Respiratory: Symmetrical Chest Expansion and Respiratory Effort, Clear to Auscultation, Clear to Percussion Cardiovascular: NL Sounds; No Murmurs; No JVD, RRR, No Edema, - - distant heart sounds Extremities: No Edema, No Clubbing, Cyanosis, - Skin: No Rash or Ulcers, No Nodules or Sclerosis, - Neurological: Alert and Oriented x 3, NL Sensation Result Diagrams: 07/03/16 05:50 07/03/16 05:50 Additional Lab and Data: Lab Results 07/02/16 07/02/16 07/02/16 Range/Units 14:03 14:03 14:03 WBC 11.4 H (3.5-10.8) 10^3/ul RBC 4.76 (4.0-5.4) 10^6/ul Hgb 14.3 (14.0-18.0) g/dl Hct 43 (42-52) % MCV 91 (80-94) fL MCH 30 (27-31) pg MCHC 33 (31-36) g/dl RDW 14 (10.5-15) % Plt Count 232 (150-450) 10^3/ul MPV 8 (7.4-10.4) um3 Neut % (Auto) 81.3 (38-83) % Lymph % (Auto) 10.7 L (25-47) % Mcmullen % (Auto) 5.3 (1-9) % Eos % (Auto) 1.8 (0-6) % Baso % (Auto) 0.9 (0-2) % Absolute Neuts (auto) 9.3 H (1.5-7.7) 10^3/ul Absolute Lymphs (auto) 1.2 (1.0-4.8) 10^3/ul Absolute Monos (auto) 0.6 (0-0.8) 10^3/ul Absolute Eos (auto) 0.2 (0-0.6) 10^3/ul Absolute Basos (auto) 0.1 (0-0.2) 10^3/ul Absolute Nucleated RBC 0.01 10^3/ul Nucleated RBC % 0.1 Patient Temperature ABG pH (7.35-7.45) ABG pCO2 (35-45) mmHg ABG pO2 (80-100) mmHg ABG HCO3 (19-31) mmol/L ABG O2 Saturation (95-98) % ABG Base Excess (-2.0-2.0) Respiration Rate O2 Delivery Device Ventilator Type Vent Mode FiO2 Inspiratory Time PEEP Pressure Support Pressure Control EPAP IPAP BiPAP Sodium 130 L (133-145) mmol/L Potassium 4.6 (3.5-5.0) mmol/L Chloride 96 L (101-111) mmol/L Carbon Dioxide 31 (22-32) mmol/L Anion Gap 3 (2-11) mmol/L BUN 16 (6-24) mg/dL Creatinine 0.81 (0.67-1.17) mg/dL Est GFR ( Amer) 126.8 (>60) Est GFR (Non-Af Amer) 98.6 (>60) BUN/Creatinine Ratio 19.8 (8-20) Glucose 138 H (70-100) mg/dL Lactic Acid < 0.3 L (0.5-2.0) mmol/L Calcium 9.2 (8.6-10.3) mg/dL Total Bilirubin 0.30 (0.2-1.0) mg/dL AST 16 (13-39) U/L ALT 15 (7-52) U/L Alkaline Phosphatase 57 (34-104) U/L Total Creatine Kinase 143 (10-223) U/L CK-MB (CK-2) 4.7 (0.6-6.3) ng/mL Myoglobin 50.3 (17.4-105.7) ng/mL Troponin I 0.01 (<0.04) ng/mL C-Reactive Protein 7.83 H (< 5.00) mg/L B-Natriuretic Peptide ( - 100) pg/mL Total Protein 6.9 (6.4-8.9) g/dL Albumin 4.0 (3.2-5.2) g/dL Globulin 2.9 (2-4) g/dL Albumin/Globulin Ratio 1.4 (1-3) 07/02/16 07/02/16 07/02/16 Range/Units 14:03 14:08 15:53 WBC (3.5-10.8) 10^3/ul RBC (4.0-5.4) 10^6/ul Hgb (14.0-18.0) g/dl Hct (42-52) % MCV (80-94) fL MCH (27-31) pg MCHC (31-36) g/dl RDW (10.5-15) % Plt Count (150-450) 10^3/ul MPV (7.4-10.4) um3 Neut % (Auto) (38-83) % Lymph % (Auto) (25-47) % Mcmullen % (Auto) (1-9) % Eos % (Auto) (0-6) % Baso % (Auto) (0-2) % Absolute Neuts (auto) (1.5-7.7) 10^3/ul Absolute Lymphs (auto) (1.0-4.8) 10^3/ul Absolute Monos (auto) (0-0.8) 10^3/ul Absolute Eos (auto) (0-0.6) 10^3/ul Absolute Basos (auto) (0-0.2) 10^3/ul Absolute Nucleated RBC 10^3/ul Nucleated RBC % Patient Temperature Not Reportable Not Reportable ABG pH 7.28 L Pending (7.35-7.45) ABG pCO2 72 H* Pending (35-45) mmHg ABG pO2 82 Pending (80-100) mmHg ABG HCO3 28.2 Pending (19-31) mmol/L ABG O2 Saturation 97.7 Pending (95-98) % ABG Base Excess 4.4 H Pending (-2.0-2.0) Respiration Rate Not Reportable 14 O2 Delivery Device 3 bipap Ventilator Type Not Reportable Not Reportable Vent Mode Not Reportable Not Reportable FiO2 Not Reportable 40 Inspiratory Time Not Reportable Not Reportable PEEP Not Reportable Not Reportable Pressure Support Not Reportable Not Reportable Pressure Control Not Reportable Not Reportable EPAP Not Reportable 5 IPAP Not Reportable 14 BiPAP Not Reportable Not Reportable Sodium (133-145) mmol/L Potassium (3.5-5.0) mmol/L Chloride (101-111) mmol/L Carbon Dioxide (22-32) mmol/L Anion Gap (2-11) mmol/L BUN (6-24) mg/dL Creatinine (0.67-1.17) mg/dL Est GFR ( Amer) (>60) Est GFR (Non-Af Amer) (>60) BUN/Creatinine Ratio (8-20) Glucose (70-100) mg/dL Lactic Acid (0.5-2.0) mmol/L Calcium (8.6-10.3) mg/dL Total Bilirubin (0.2-1.0) mg/dL AST (13-39) U/L ALT (7-52) U/L Alkaline Phosphatase (34-104) U/L Total Creatine Kinase (10-223) U/L CK-MB (CK-2) (0.6-6.3) ng/mL Myoglobin (17.4-105.7) ng/mL Troponin I (<0.04) ng/mL C-Reactive Protein (< 5.00) mg/L B-Natriuretic Peptide 15 ( - 100) pg/mL Total Protein (6.4-8.9) g/dL Albumin (3.2-5.2) g/dL Globulin (2-4) g/dL Albumin/Globulin Ratio (1-3) Microbiology and Other Data: Microbiology 07/02/16 15:57 Aerobic Blood Culture - Preliminary Blood Venous No Growth Day 1 Anaerobic Blood Culture - Preliminary No Growth Day 1 07/02/16 15:57 Aerobic Blood Culture - Preliminary Blood Venous No Growth Day 1 Anaerobic Blood Culture - Preliminary No Growth Day 1 Assess/Plan/Problems-Billing Assessment: - Patient Problems (1) COPD exacerbation Current Visit: No Status: Acute Code(s): J44.1 - CHRONIC OBSTRUCTIVE PULMONARY DISEASE W (ACUTE) EXACERBATION SNOMED Code(s): 816906384 Comment: Prednisone taper, start 40 mg daily on 07/05 and continue to taper. Continue Spiriva, Dulera, prn albuterol. Continue Azithromycin. Overnight oximetry off NIPPV showed only 4 episodes of desat <89% lasting over 3 minutes, the longest lasting 3 min 24 sec. CO2 retention noted. (2) DM type 2 (diabetes mellitus, type 2) Current Visit: No Status: Chronic Priority: Medium Comment: Glipizide, Lispro by SS ordered. Linagliptin not available. (3) Tobacco abuse Current Visit: No Status: Chronic Code(s): Z72.0 - TOBACCO USE SNOMED Code (s): 432298755 Comment: Pt advised to quit smoking and avoid second hand smoke. (4) Hypothyroidism Current Visit: No Status: Acute Code(s): E03.9 - HYPOTHYROIDISM, UNSPECIFIED SNOMED Code(s): 12060922 Comment: Continue synthroid. TSH wnl 01/20/16, 1.91 on 07/02/16. (5) Morbid obesity Current Visit: No Status: Chronic Code(s): E66.01 - MORBID (SEVERE) OBESITY DUE TO EXCESS CALORIES SNOMED Code(s): 705377756 Comment: BMI 52.8. (6) Schizo affective schizophrenia Current Visit: No Status: Chronic Priority: Medium Code(s): F25.0 - SCHIZOAFFECTIVE DISORDER, BIPOLAR TYPE SNOMED Code(s): 617385970 Comment: Psychiatric financial operations consultant noted patient was mildly delirious and his answers may not be reliable. He recommended continuing all home psychotropic meds.
[2016-07-04] MEDS: Insulin LISPRO* 1 UNITS UNIT SUBCUT SCH ×4 (08:16→21:15)
[2016-07-04] MEDS: Lisinopril TAB* 10 MG PO SCH (08:17)
[2016-07-04] MEDS: guaiFENesin LIQ* 100 MG/5 ML UDC PO SCH ×4 (08:17→22:05)
[2016-07-04] MEDS: Sertraline* 100 MG TAB PO SCH (08:17)
[2016-07-04] MEDS: glipiZIDE TAB* 5 MG PO SCH ×2 (08:20→17:23)
[2016-07-04] MEDS: Linagliptin (NF) 5 MG TAB PO SCH (08:41)
[2016-07-04] MEDS: SITAGLIPTIN 50 MG PO SCH (15:17)
[2016-07-04] MEDS: Acetaminophen TAB* 325 MG PO PRN (15:17)
[2016-07-04] MEDS: OLANzapine TAB* 10 MG PO SCH (22:05)
[2016-07-04] MEDS: Atorvastatin* 20 MG TAB PO SCH (22:05)
[2016-07-05] MEDS: Levothyroxine TAB* 112 MCG TAB PO SCH (06:35)
[2016-07-05] MEDS: Heparin VIAL(*) 5000 UNITS/ML VIAL (FIVE THOUSAND) SUBCUT SCH ×3 (06:53→21:27)
--- NOTE | 2016-07-05 08:17 | PN ---
Subjective Date of Service: 07/05/16 Interval History: No complaints this morning Objective Active Medications: Acetaminophen (Tylenol Tab*) 650 mg PO Q4H PRN PRN Reason: FEVER/PAIN Last Admin: 07/04/16 15:17 Dose: 650 mg Albuterol (Ventolin 2.5 Mg/3 Ml Neb.Manisha*) 2.5 mg INH RT.[id number] AWAKE PRN PRN Reason: sob/wheezing Atorvastatin Calcium (Lipitor*) 40 mg PO BEDTIME [facility] Last Admin: 07/04/16 22:05 Dose: 40 mg Dextrose (D50w Syringe 50 Ml*) 12.5 gm IV PUSH .FOR FS < 60 - SS PRN PRN Reason: FS < 60 Glipizide (Glucotrol Tab*) 5 mg PO BID AC [facility] Last Admin: 07/04/16 17:23 Dose: 5 mg Guaifenesin (Robitussin*) 10 ml PO QID [facility] Last Admin: 07/04/16 22:05 Dose: 10 ml Heparin Sodium (Porcine) (Heparin Vial(*)) 5,000 units SUBCUT Q8HR [facility] Last Admin: 07/05/16 06:53 Dose: 5,000 units Insulin Human Lispro (Humalog*) 0 units SUBCUT ACHS [facility] PRN Reason: Protocol Last Admin: 07/04/16 21:15 Dose: Not Given Levothyroxine Sodium (Synthroid Tab*) 112 mcg PO 0600 [facility] Last Admin: 07/05/16 06:35 Dose: 112 mcg Lisinopril (Prinivil Tab*) 10 mg PO DAILY [facility] Last Admin: 07/04/16 08:17 Dose: 10 mg Olanzapine (Zyprexa Tab*) 20 mg PO BEDTIME [facility] Last Admin: 07/04/16 22:05 Dose: 20 mg Ondansetron HCl (Zofran Inj*) 4 mg IV Q4H PRN PRN Reason: NAUSEA/VOMITING Prednisone (Deltasone Tab*) 40 mg PO DAILY [facility] Sertraline HCl (Zoloft*) 200 mg PO DAILY [facility] Last Admin: 07/04/16 08:17 Dose: 200 mg Sitagliptin Phosphate (Januvia (Nf)) 50 mg PO DAILY [facility] Last Admin: 07/04/16 15:17 Dose: 50 mg Trazodone HCl (Desyrel Tab*) 50 mg PO BEDTIME PRN PRN Reason: SLEEP Last Admin: 07/02/16 20:25 Dose: 50 mg Vital Signs 07/04/16 07/04/16 07/04/16 09:00 10:00 11:00 Temperature 98.5 F Pulse Rate 90 88 85 Respiratory 16 14 18 Rate Blood Pressure 124/60 108/64 (mmHg) O2 Sat by Pulse 93 91 93 Oximetry 07/04/16 07/04/16 07/04/16 15:24 19:40 20:00 Temperature 97.4 F 98.0 F Pulse Rate 89 102 Respiratory 18 24 16 Rate Blood Pressure 117/55 125/61 (mmHg) O2 Sat by Pulse 94 96 Oximetry 07/04/16 07/05/16 07/05/16 23:38 04:26 05:05 Temperature 98.1 F 97.2 F Pulse Rate 84 80 Respiratory 18 18 Rate Blood Pressure 140/64 120/49 (mmHg) O2 Sat by Pulse 93 93 91 Oximetry Oxygen Devices in Use Now: None - 90% on RA Appearance: obese, lying flat in bed, NAD Eyes: No Scleral Icterus, PERRLA Ears/Nose/Mouth/Throat: Clear Oropharnyx, - - dry MM Neck: NL Appearance and Movements; NL JVP, Trachea Midline Respiratory: Symmetrical Chest Expansion and Respiratory Effort, Clear to Auscultation, - - no wheeze, rhonchi, rales Cardiovascular: NL Sounds; No Murmurs; No JVD, RRR Abdominal: NL Sounds; No Tenderness; No Distention, No Hepatosplenomegaly Lymphatic: No Cervical Adenopathy Extremities: No Edema, No Clubbing, Cyanosis Skin: No Rash or Ulcers Neurological: - - AOx2 to name and date "" but not location. Result Diagrams: 07/03/16 05:50 07/03/16 05:50 Additional Lab and Data: Lab Results 07/02/16 07/02/16 07/02/16 Range/Units 14:03 14:03 14:03 WBC 11.4 H (3.5-10.8) 10^3/ul RBC 4.76 (4.0-5.4) 10^6/ul Hgb 14.3 (14.0-18.0) g/dl Hct 43 (42-52) % MCV 91 (80-94) fL MCH 30 (27-31) pg MCHC 33 (31-36) g/dl RDW 14 (10.5-15) % Plt Count 232 (150-450) 10^3/ul MPV 8 (7.4-10.4) um3 Neut % (Auto) 81.3 (38-83) % Lymph % (Auto) 10.7 L (25-47) % Bowie % (Auto) 5.3 (1-9) % Eos % (Auto) 1.8 (0-6) % Baso % (Auto) 0.9 (0-2) % Absolute Neuts (auto) 9.3 H (1.5-7.7) 10^3/ul Absolute Lymphs (auto) 1.2 (1.0-4.8) 10^3/ul Absolute Monos (auto) 0.6 (0-0.8) 10^3/ul Absolute Eos (auto) 0.2 (0-0.6) 10^3/ul Absolute Basos (auto) 0.1 (0-0.2) 10^3/ul Absolute Nucleated RBC 0.01 10^3/ul Nucleated RBC % 0.1 Patient Temperature ABG pH (7.35-7.45) ABG pCO2 (35-45) mmHg ABG pO2 (80-100) mmHg ABG HCO3 (19-31) mmol/L ABG O2 Saturation (95-98) % ABG Base Excess (-2.0-2.0) Respiration Rate O2 Delivery Device Ventilator Type Vent Mode FiO2 Inspiratory Time PEEP Pressure Support Pressure Control EPAP IPAP BiPAP Sodium 130 L (133-145) mmol/L Potassium 4.6 (3.5-5.0) mmol/L Chloride 96 L (101-111) mmol/L Carbon Dioxide 31 (22-32) mmol/L Anion Gap 3 (2-11) mmol/L BUN 16 (6-24) mg/dL Creatinine 0.81 (0.67-1.17) mg/dL Est GFR ( Amer) 126.8 (>60) Est GFR (Non-Af Amer) 98.6 (>60) BUN/Creatinine Ratio 19.8 (8-20) Glucose 138 H (70-100) mg/dL Lactic Acid < 0.3 L (0.5-2.0) mmol/L Calcium 9.2 (8.6-10.3) mg/dL Total Bilirubin 0.30 (0.2-1.0) mg/dL AST 16 (13-39) U/L ALT 15 (7-52) U/L Alkaline Phosphatase 57 (34-104) U/L Total Creatine Kinase 143 (10-223) U/L CK-MB (CK-2) 4.7 (0.6-6.3) ng/mL Myoglobin 50.3 (17.4-105.7) ng/mL Troponin I 0.01 (<0.04) ng/mL C-Reactive Protein 7.83 H (< 5.00) mg/L B-Natriuretic Peptide ( - 100) pg/mL Total Protein 6.9 (6.4-8.9) g/dL Albumin 4.0 (3.2-5.2) g/dL Globulin 2.9 (2-4) g/dL Albumin/Globulin Ratio 1.4 (1-3) 07/02/16 07/02/16 07/02/16 Range/Units 14:03 14:08 15:53 WBC (3.5-10.8) 10^3/ul RBC (4.0-5.4) 10^6/ul Hgb (14.0-18.0) g/dl Hct (42-52) % MCV (80-94) fL MCH (27-31) pg MCHC (31-36) g/dl RDW (10.5-15) % Plt Count (150-450) 10^3/ul MPV (7.4-10.4) um3 Neut % (Auto) (38-83) % Lymph % (Auto) (25-47) % Bowie % (Auto) (1-9) % Eos % (Auto) (0-6) % Baso % (Auto) (0-2) % Absolute Neuts (auto) (1.5-7.7) 10^3/ul Absolute Lymphs (auto) (1.0-4.8) 10^3/ul Absolute Monos (auto) (0-0.8) 10^3/ul Absolute Eos (auto) (0-0.6) 10^3/ul Absolute Basos (auto) (0-0.2) 10^3/ul Absolute Nucleated RBC 10^3/ul Nucleated RBC % Patient Temperature Not Reportable Not Reportable ABG pH 7.28 L Pending (7.35-7.45) ABG pCO2 72 H* Pending (35-45) mmHg ABG pO2 82 Pending (80-100) mmHg ABG HCO3 28.2 Pending (19-31) mmol/L ABG O2 Saturation 97.7 Pending (95-98) % ABG Base Excess 4.4 H Pending (-2.0-2.0) Respiration Rate Not Reportable 14 O2 Delivery Device 3 bipap Ventilator Type Not Reportable Not Reportable Vent Mode Not Reportable Not Reportable FiO2 Not Reportable 40 Inspiratory Time Not Reportable Not Reportable PEEP Not Reportable Not Reportable Pressure Support Not Reportable Not Reportable Pressure Control Not Reportable Not Reportable EPAP Not Reportable 5 IPAP Not Reportable 14 BiPAP Not Reportable Not Reportable Sodium (133-145) mmol/L Potassium (3.5-5.0) mmol/L Chloride (101-111) mmol/L Carbon Dioxide (22-32) mmol/L Anion Gap (2-11) mmol/L BUN (6-24) mg/dL Creatinine (0.67-1.17) mg/dL Est GFR ( Amer) (>60) Est GFR (Non-Af Amer) (>60) BUN/Creatinine Ratio (8-20) Glucose (70-100) mg/dL Lactic Acid (0.5-2.0) mmol/L Calcium (8.6-10.3) mg/dL Total Bilirubin (0.2-1.0) mg/dL AST (13-39) U/L ALT (7-52) U/L Alkaline Phosphatase (34-104) U/L Total Creatine Kinase (10-223) U/L CK-MB (CK-2) (0.6-6.3) ng/mL Myoglobin (17.4-105.7) ng/mL Troponin I (<0.04) ng/mL C-Reactive Protein (< 5.00) mg/L B-Natriuretic Peptide 15 ( - 100) pg/mL Total Protein (6.4-8.9) g/dL Albumin (3.2-5.2) g/dL Globulin (2-4) g/dL Albumin/Globulin Ratio (1-3) Microbiology and Other Data: Microbiology 07/02/16 15:57 Aerobic Blood Culture - Preliminary Blood Venous No Growth Day 1 Anaerobic Blood Culture - Preliminary No Growth Day 1 07/02/16 15:57 Aerobic Blood Culture - Preliminary Blood Venous No Growth Day 1 Anaerobic Blood Culture - Preliminary No Growth Day 1 Assess/Plan/Problems-Billing Assessment: 56 yo M h/o CAD, asthma/COPD, schizophrenia d/o, DM2 p/w hallucinations found with acute hypercarbic respiratory failure in setting of acute COPD exacerbation - Patient Problems (1) Altered mental status Comment: On presentation now improving in setting of acute CO2 retention (2) COPD exacerbation Comment: Prednisone taper startinf with 40 mg daily on 07/05 Continue Spiriva, Dulera, prn albuterol. Continue Azithromycin day 4 of 5 Overnight oximetry off NIPPV showed only 4 episodes of desat <89% lasting over 3 minutes, the longest lasting 3 min 24 sec. CO2 retention noted. (3) Hypothyroidism Comment: Continue synthroid. TSH wnl on presentation (4) DM type 2 (diabetes mellitus, type 2) Comment: Glipizide, Lispro by SS ordered. Linagliptin not available. (5) DVT prophylaxis Comment: SQ heparin
[2016-07-05] MEDS: Insulin LISPRO* 1 UNITS UNIT SUBCUT SCH ×4 (10:19→21:28)
[2016-07-05] MEDS: glipiZIDE TAB* 5 MG PO SCH ×2 (10:43→17:58)
[2016-07-05] MEDS: Sertraline* 100 MG TAB PO SCH (10:43)
[2016-07-05] MEDS: guaiFENesin LIQ* 100 MG/5 ML UDC PO SCH ×4 (10:43→21:13)
[2016-07-05] MEDS: predniSONE TAB* 20 MG PO SCH (10:43)
[2016-07-05] MEDS: Lisinopril TAB* 10 MG PO SCH (10:44)
[2016-07-05] MEDS: SITAGLIPTIN 50 MG PO SCH (11:37)
[2016-07-05] MEDS: Atorvastatin* 20 MG TAB PO SCH (21:12)
[2016-07-05] MEDS: OLANzapine TAB* 10 MG PO SCH (21:12)
[2016-07-06] MEDS: Levothyroxine TAB* 112 MCG TAB PO SCH (05:22)
[2016-07-06] MEDS: Heparin VIAL(*) 5000 UNITS/ML VIAL (FIVE THOUSAND) SUBCUT SCH ×3 (05:22→21:33)
[2016-07-06 05:32] LABS: Hematocrit 45 % (42-52); Mean Corpuscular HGB Conc 33 g/dl (31-36); Mean Corpuscular Hemoglobin 30 pg (27-31); Mean Corpuscular Volume 90 fL (80-94); Mean Platelet Volume 7 um3 (7.4-10.4); Red Blood Count 5.06 10^6/ul (4.0-5.4); Red Cell Distribution Width 14 % (10.5-15); White Blood Count 13.4 10^3/ul (3.5-10.8)
[2016-07-06 05:46] LABS: BUN/Creatinine Ratio 27.2 (8-20); EGFR African American 126.8 (>60); EGFR Non-African American 98.6 (>60)
[2016-07-06] MEDS: guaiFENesin LIQ* 100 MG/5 ML UDC PO SCH ×4 (07:41→20:24)
[2016-07-06] MEDS: Sertraline* 100 MG TAB PO SCH (07:42)
[2016-07-06] MEDS: predniSONE TAB* 20 MG PO SCH (07:43)
[2016-07-06] MEDS: Lisinopril TAB* 10 MG PO SCH (07:43)
[2016-07-06] MEDS: Insulin LISPRO* 1 UNITS UNIT SUBCUT SCH ×4 (07:44→20:24)
[2016-07-06] MEDS: glipiZIDE TAB* 5 MG PO SCH ×2 (07:44→18:13)
[2016-07-06] MEDS: SITAGLIPTIN 50 MG PO SCH (07:44)
--- NOTE | 2016-07-06 08:19 | PN ---
Subjective Date of Service: 07/06/16 Interval History: Improved today. Knows he is in "[facility]" and his name. Denies SOB, CP. Objective Active Medications: Acetaminophen (Tylenol Tab*) 650 mg PO Q4H PRN PRN Reason: FEVER/PAIN Last Admin: 07/04/16 15:17 Dose: 650 mg Albuterol (Ventolin 2.5 Mg/3 Ml Neb.Manisha*) 2.5 mg INH [id number] AWAKE PRN PRN Reason: sob/wheezing Atorvastatin Calcium (Lipitor*) 40 mg PO BEDTIME [facility] Last Admin: 07/05/16 21:12 Dose: 40 mg Dextrose (D50w Syringe 50 Ml*) 12.5 gm IV PUSH .FOR FS < 60 - SS PRN PRN Reason: FS < 60 Glipizide (Glucotrol Tab*) 5 mg PO BID AC [facility] Last Admin: 07/06/16 07:44 Dose: 5 mg Guaifenesin (Robitussin*) 10 ml PO QID [facility] Last Admin: 07/06/16 07:41 Dose: 10 ml Heparin Sodium (Porcine) (Heparin Vial(*)) 5,000 units SUBCUT Q8HR [facility] Last Admin: 07/06/16 05:22 Dose: 5,000 units Insulin Human Lispro (Humalog*) 0 units SUBCUT ACHS [facility] PRN Reason: Protocol Last Admin: 07/06/16 07:44 Dose: 3 unit Levothyroxine Sodium (Synthroid Tab*) 112 mcg PO 0600 [facility] Last Admin: 07/06/16 05:22 Dose: 112 mcg Lisinopril (Prinivil Tab*) 10 mg PO DAILY [facility] Last Admin: 07/06/16 07:43 Dose: 10 mg Olanzapine (Zyprexa Tab*) 20 mg PO BEDTIME [facility] Last Admin: 07/05/16 21:12 Dose: 20 mg Ondansetron HCl (Zofran Inj*) 4 mg IV Q4H PRN PRN Reason: NAUSEA/VOMITING Prednisone (Deltasone Tab*) 40 mg PO DAILY [facility] Last Admin: 07/06/16 07:43 Dose: 40 mg Sertraline HCl (Zoloft*) 200 mg PO DAILY [facility] Last Admin: 07/06/16 07:42 Dose: 200 mg Sitagliptin Phosphate (Januvia (Nf)) 50 mg PO DAILY [facility] Last Admin: 07/06/16 07:44 Dose: 50 mg Trazodone HCl (Desyrel Tab*) 50 mg PO BEDTIME PRN PRN Reason: SLEEP Last Admin: 07/02/16 20:25 Dose: 50 mg Vital Signs 07/05/16 07/05/16 07/05/16 09:00 15:39 20:00 Temperature 97.2 F Pulse Rate 93 Respiratory 18 16 Rate Blood Pressure 135/73 (mmHg) O2 Sat by Pulse 90 94 Oximetry 07/05/16 07/06/16 23:31 06:49 Temperature 97.4 F 98.0 F Pulse Rate 95 101 Respiratory 16 16 Rate Blood Pressure 122/79 122/60 (mmHg) O2 Sat by Pulse 97 95 Oximetry Oxygen Devices in Use Now: Nasal Cannula - 2L NC Appearance: obese, sitting in chair Eyes: No Scleral Icterus, PERRLA Ears/Nose/Mouth/Throat: Clear Oropharnyx, Mucous Membranes Moist Neck: NL Appearance and Movements; NL JVP, Trachea Midline Respiratory: Symmetrical Chest Expansion and Respiratory Effort, - - diminished , no rales/rhonchi Cardiovascular: RRR Abdominal: NL Sounds; No Tenderness; No Distention Lymphatic: No Cervical Adenopathy Extremities: No Edema Skin: No Rash or Ulcers Neurological: - - AOx2, psychomotor slowing Result Diagrams: 07/06/16 05:09 07/06/16 05:09 Additional Lab and Data: Lab Results 07/02/16 07/02/16 07/02/16 Range/Units 14:03 14:03 14:03 WBC 11.4 H (3.5-10.8) 10^3/ul RBC 4.76 (4.0-5.4) 10^6/ul Hgb 14.3 (14.0-18.0) g/dl Hct 43 (42-52) % MCV 91 (80-94) fL MCH 30 (27-31) pg MCHC 33 (31-36) g/dl RDW 14 (10.5-15) % Plt Count 232 (150-450) 10^3/ul MPV 8 (7.4-10.4) um3 Neut % (Auto) 81.3 (38-83) % Lymph % (Auto) 10.7 L (25-47) % Harding % (Auto) 5.3 (1-9) % Eos % (Auto) 1.8 (0-6) % Baso % (Auto) 0.9 (0-2) % Absolute Neuts (auto) 9.3 H (1.5-7.7) 10^3/ul Absolute Lymphs (auto) 1.2 (1.0-4.8) 10^3/ul Absolute Monos (auto) 0.6 (0-0.8) 10^3/ul Absolute Eos (auto) 0.2 (0-0.6) 10^3/ul Absolute Basos (auto) 0.1 (0-0.2) 10^3/ul Absolute Nucleated RBC 0.01 10^3/ul Nucleated RBC % 0.1 Patient Temperature ABG pH (7.35-7.45) ABG pCO2 (35-45) mmHg ABG pO2 (80-100) mmHg ABG HCO3 (19-31) mmol/L ABG O2 Saturation (95-98) % ABG Base Excess (-2.0-2.0) Respiration Rate O2 Delivery Device Ventilator Type Vent Mode FiO2 Inspiratory Time PEEP Pressure Support Pressure Control EPAP IPAP BiPAP Sodium 130 L (133-145) mmol/L Potassium 4.6 (3.5-5.0) mmol/L Chloride 96 L (101-111) mmol/L Carbon Dioxide 31 (22-32) mmol/L Anion Gap 3 (2-11) mmol/L BUN 16 (6-24) mg/dL Creatinine 0.81 (0.67-1.17) mg/dL Est GFR ( Amer) 126.8 (>60) Est GFR (Non-Af Amer) 98.6 (>60) BUN/Creatinine Ratio 19.8 (8-20) Glucose 138 H (70-100) mg/dL Lactic Acid < 0.3 L (0.5-2.0) mmol/L Calcium 9.2 (8.6-10.3) mg/dL Total Bilirubin 0.30 (0.2-1.0) mg/dL AST 16 (13-39) U/L ALT 15 (7-52) U/L Alkaline Phosphatase 57 (34-104) U/L Total Creatine Kinase 143 (10-223) U/L CK-MB (CK-2) 4.7 (0.6-6.3) ng/mL Myoglobin 50.3 (17.4-105.7) ng/mL Troponin I 0.01 (<0.04) ng/mL C-Reactive Protein 7.83 H (< 5.00) mg/L B-Natriuretic Peptide ( - 100) pg/mL Total Protein 6.9 (6.4-8.9) g/dL Albumin 4.0 (3.2-5.2) g/dL Globulin 2.9 (2-4) g/dL Albumin/Globulin Ratio 1.4 (1-3) 07/02/16 07/02/16 07/02/16 Range/Units 14:03 14:08 15:53 WBC (3.5-10.8) 10^3/ul RBC (4.0-5.4) 10^6/ul Hgb (14.0-18.0) g/dl Hct (42-52) % MCV (80-94) fL MCH (27-31) pg MCHC (31-36) g/dl RDW (10.5-15) % Plt Count (150-450) 10^3/ul MPV (7.4-10.4) um3 Neut % (Auto) (38-83) % Lymph % (Auto) (25-47) % Harding % (Auto) (1-9) % Eos % (Auto) (0-6) % Baso % (Auto) (0-2) % Absolute Neuts (auto) (1.5-7.7) 10^3/ul Absolute Lymphs (auto) (1.0-4.8) 10^3/ul Absolute Monos (auto) (0-0.8) 10^3/ul Absolute Eos (auto) (0-0.6) 10^3/ul Absolute Basos (auto) (0-0.2) 10^3/ul Absolute Nucleated RBC 10^3/ul Nucleated RBC % Patient Temperature Not Reportable Not Reportable ABG pH 7.28 L Pending (7.35-7.45) ABG pCO2 72 H* Pending (35-45) mmHg ABG pO2 82 Pending (80-100) mmHg ABG HCO3 28.2 Pending (19-31) mmol/L ABG O2 Saturation 97.7 Pending (95-98) % ABG Base Excess 4.4 H Pending (-2.0-2.0) Respiration Rate Not Reportable 14 O2 Delivery Device 3 bipap Ventilator Type Not Reportable Not Reportable Vent Mode Not Reportable Not Reportable FiO2 Not Reportable 40 Inspiratory Time Not Reportable Not Reportable PEEP Not Reportable Not Reportable Pressure Support Not Reportable Not Reportable Pressure Control Not Reportable Not Reportable EPAP Not Reportable 5 IPAP Not Reportable 14 BiPAP Not Reportable Not Reportable Sodium (133-145) mmol/L Potassium (3.5-5.0) mmol/L Chloride (101-111) mmol/L Carbon Dioxide (22-32) mmol/L Anion Gap (2-11) mmol/L BUN (6-24) mg/dL Creatinine (0.67-1.17) mg/dL Est GFR ( Amer) (>60) Est GFR (Non-Af Amer) (>60) BUN/Creatinine Ratio (8-20) Glucose (70-100) mg/dL Lactic Acid (0.5-2.0) mmol/L Calcium (8.6-10.3) mg/dL Total Bilirubin (0.2-1.0) mg/dL AST (13-39) U/L ALT (7-52) U/L Alkaline Phosphatase (34-104) U/L Total Creatine Kinase (10-223) U/L CK-MB (CK-2) (0.6-6.3) ng/mL Myoglobin (17.4-105.7) ng/mL Troponin I (<0.04) ng/mL C-Reactive Protein (< 5.00) mg/L B-Natriuretic Peptide 15 ( - 100) pg/mL Total Protein (6.4-8.9) g/dL Albumin (3.2-5.2) g/dL Globulin (2-4) g/dL Albumin/Globulin Ratio (1-3) Microbiology and Other Data: Microbiology 07/02/16 15:57 Aerobic Blood Culture - Preliminary Blood Venous No Growth Day 1 Anaerobic Blood Culture - Preliminary No Growth Day 1 07/02/16 15:57 Aerobic Blood Culture - Preliminary Blood Venous No Growth Day 1 Anaerobic Blood Culture - Preliminary No Growth Day 1 Assess/Plan/Problems-Billing Assessment: 56 yo M h/o CAD, asthma/COPD, schizophrenia d/o, DM2 p/w hallucinations found with acute hypercarbic respiratory failure in setting of acute COPD exacerbation - Patient Problems (1) Altered mental status Comment: On presentation now improving in setting of acute CO2 retention follow up with psychiatry re recommendations (2) COPD exacerbation Comment: Prednisone taper startinf with 40 mg daily on 07/05 Continue Spiriva, Dulera, prn albuterol. Continue Azithromycin day 5 of 5 Overnight oximetry off NIPPV showed only 4 episodes of desat <89% lasting over 3 minutes, the longest lasting 3 min 24 sec. CO2 retention noted. (3) Hypothyroidism Comment: Continue synthroid. TSH wnl on presentation (4) DM type 2 (diabetes mellitus, type 2) Comment: Glipizide, Lispro by SS ordered. Linagliptin not available. (5) DVT prophylaxis Comment: SQ heparin
[2016-07-06] MEDS: OLANzapine TAB* 10 MG PO SCH (20:23)
[2016-07-06] MEDS: Atorvastatin* 20 MG TAB PO SCH (20:24)
[2016-07-07] MEDS: Heparin VIAL(*) 5000 UNITS/ML VIAL (FIVE THOUSAND) SUBCUT SCH ×3 (05:41→22:49)
[2016-07-07] MEDS: Levothyroxine TAB* 112 MCG TAB PO SCH (06:38)
--- NOTE | 2016-07-07 08:06 | PN ---
Subjective Date of Service: 07/07/16 Interval History: Seen and examined this AM Reports cough but feels breathing has improved OOB to bathroom, still wearing nasal cannula Denies hallucination but review of nursing notes over last 24 hrs indicates he has reported hallucinations that were difficult to characterize. Psychiatry contacted yesterday and they will reevaluate patient today. Objective Active Medications: Acetaminophen (Tylenol Tab*) 650 mg PO Q4H PRN PRN Reason: FEVER/PAIN Last Admin: 07/04/16 15:17 Dose: 650 mg Albuterol (Ventolin 2.5 Mg/3 Ml Neb.Manisha*) 2.5 mg INH [id number] AWAKE PRN PRN Reason: sob/wheezing Atorvastatin Calcium (Lipitor*) 40 mg PO BEDTIME [facility] Last Admin: 07/06/16 20:24 Dose: 40 mg Dextrose (D50w Syringe 50 Ml*) 12.5 gm IV PUSH .FOR FS < 60 - SS PRN PRN Reason: FS < 60 Glipizide (Glucotrol Tab*) 5 mg PO BID AC [facility] Last Admin: 07/06/16 18:13 Dose: 5 mg Guaifenesin (Robitussin*) 10 ml PO QID [facility] Last Admin: 07/06/16 20:24 Dose: 10 ml Heparin Sodium (Porcine) (Heparin Vial(*)) 5,000 units SUBCUT Q8HR [facility] Last Admin: 07/07/16 05:41 Dose: 5,000 units Insulin Human Lispro (Humalog*) 0 units SUBCUT ACHS [facility] PRN Reason: Protocol Last Admin: 07/06/16 20:24 Dose: 3 unit Levothyroxine Sodium (Synthroid Tab*) 112 mcg PO 0600 [facility] Last Admin: 07/07/16 06:38 Dose: 112 mcg Lisinopril (Prinivil Tab*) 10 mg PO DAILY [facility] Last Admin: 07/06/16 07:43 Dose: 10 mg Olanzapine (Zyprexa Tab*) 20 mg PO BEDTIME [facility] Last Admin: 07/06/16 20:23 Dose: 20 mg Ondansetron HCl (Zofran Inj*) 4 mg IV Q4H PRN PRN Reason: NAUSEA/VOMITING Prednisone (Deltasone Tab*) 40 mg PO DAILY [facility] Last Admin: 07/06/16 07:43 Dose: 40 mg Sertraline HCl (Zoloft*) 200 mg PO DAILY [facility] Last Admin: 07/06/16 07:42 Dose: 200 mg Sitagliptin Phosphate (Januvia (Nf)) 50 mg PO DAILY [facility] Last Admin: 07/06/16 07:44 Dose: 50 mg Trazodone HCl (Desyrel Tab*) 50 mg PO BEDTIME PRN PRN Reason: SLEEP Last Admin: 07/02/16 20:25 Dose: 50 mg Vital Signs 07/06/16 07/06/16 07/06/16 15:33 20:00 23:33 Temperature 98.0 F 98.2 F Pulse Rate 97 90 Respiratory 16 16 20 Rate Blood Pressure 112/60 107/65 (mmHg) O2 Sat by Pulse 96 Oximetry Oxygen Devices in Use Now: Nasal Cannula - 2L NC Appearance: obese, NAD Eyes: No Scleral Icterus, PERRLA Ears/Nose/Mouth/Throat: Clear Oropharnyx, Mucous Membranes Moist Neck: NL Appearance and Movements; NL JVP, Trachea Midline Respiratory: Symmetrical Chest Expansion and Respiratory Effort, - - decreased BS without adventitious sounds Cardiovascular: NL Sounds; No Murmurs; No JVD, RRR Abdominal: NL Sounds; No Tenderness; No Distention, No Hepatosplenomegaly Extremities: - - trace LE edema Neurological: Alert and Oriented x 3, - - knows his name, "[facility]" and 2017 although notes "I am not supposed to know the year" Result Diagrams: 07/06/16 05:09 07/06/16 05:09 Additional Lab and Data: Lab Results 07/02/16 07/02/16 07/02/16 Range/Units 14:03 14:03 14:03 WBC 11.4 H (3.5-10.8) 10^3/ul RBC 4.76 (4.0-5.4) 10^6/ul Hgb 14.3 (14.0-18.0) g/dl Hct 43 (42-52) % MCV 91 (80-94) fL MCH 30 (27-31) pg MCHC 33 (31-36) g/dl RDW 14 (10.5-15) % Plt Count 232 (150-450) 10^3/ul MPV 8 (7.4-10.4) um3 Neut % (Auto) 81.3 (38-83) % Lymph % (Auto) 10.7 L (25-47) % Coffee % (Auto) 5.3 (1-9) % Eos % (Auto) 1.8 (0-6) % Baso % (Auto) 0.9 (0-2) % Absolute Neuts (auto) 9.3 H (1.5-7.7) 10^3/ul Absolute Lymphs (auto) 1.2 (1.0-4.8) 10^3/ul Absolute Monos (auto) 0.6 (0-0.8) 10^3/ul Absolute Eos (auto) 0.2 (0-0.6) 10^3/ul Absolute Basos (auto) 0.1 (0-0.2) 10^3/ul Absolute Nucleated RBC 0.01 10^3/ul Nucleated RBC % 0.1 Patient Temperature ABG pH (7.35-7.45) ABG pCO2 (35-45) mmHg ABG pO2 (80-100) mmHg ABG HCO3 (19-31) mmol/L ABG O2 Saturation (95-98) % ABG Base Excess (-2.0-2.0) Respiration Rate O2 Delivery Device Ventilator Type Vent Mode FiO2 Inspiratory Time PEEP Pressure Support Pressure Control EPAP IPAP BiPAP Sodium 130 L (133-145) mmol/L Potassium 4.6 (3.5-5.0) mmol/L Chloride 96 L (101-111) mmol/L Carbon Dioxide 31 (22-32) mmol/L Anion Gap 3 (2-11) mmol/L BUN 16 (6-24) mg/dL Creatinine 0.81 (0.67-1.17) mg/dL Est GFR ( Amer) 126.8 (>60) Est GFR (Non-Af Amer) 98.6 (>60) BUN/Creatinine Ratio 19.8 (8-20) Glucose 138 H (70-100) mg/dL Lactic Acid < 0.3 L (0.5-2.0) mmol/L Calcium 9.2 (8.6-10.3) mg/dL Total Bilirubin 0.30 (0.2-1.0) mg/dL AST 16 (13-39) U/L ALT 15 (7-52) U/L Alkaline Phosphatase 57 (34-104) U/L Total Creatine Kinase 143 (10-223) U/L CK-MB (CK-2) 4.7 (0.6-6.3) ng/mL Myoglobin 50.3 (17.4-105.7) ng/mL Troponin I 0.01 (<0.04) ng/mL C-Reactive Protein 7.83 H (< 5.00) mg/L B-Natriuretic Peptide ( - 100) pg/mL Total Protein 6.9 (6.4-8.9) g/dL Albumin 4.0 (3.2-5.2) g/dL Globulin 2.9 (2-4) g/dL Albumin/Globulin Ratio 1.4 (1-3) 07/02/16 07/02/16 07/02/16 Range/Units 14:03 14:08 15:53 WBC (3.5-10.8) 10^3/ul RBC (4.0-5.4) 10^6/ul Hgb (14.0-18.0) g/dl Hct (42-52) % MCV (80-94) fL MCH (27-31) pg MCHC (31-36) g/dl RDW (10.5-15) % Plt Count (150-450) 10^3/ul MPV (7.4-10.4) um3 Neut % (Auto) (38-83) % Lymph % (Auto) (25-47) % Coffee % (Auto) (1-9) % Eos % (Auto) (0-6) % Baso % (Auto) (0-2) % Absolute Neuts (auto) (1.5-7.7) 10^3/ul Absolute Lymphs (auto) (1.0-4.8) 10^3/ul Absolute Monos (auto) (0-0.8) 10^3/ul Absolute Eos (auto) (0-0.6) 10^3/ul Absolute Basos (auto) (0-0.2) 10^3/ul Absolute Nucleated RBC 10^3/ul Nucleated RBC % Patient Temperature Not Reportable Not Reportable ABG pH 7.28 L Pending (7.35-7.45) ABG pCO2 72 H* Pending (35-45) mmHg ABG pO2 82 Pending (80-100) mmHg ABG HCO3 28.2 Pending (19-31) mmol/L ABG O2 Saturation 97.7 Pending (95-98) % ABG Base Excess 4.4 H Pending (-2.0-2.0) Respiration Rate Not Reportable 14 O2 Delivery Device 3 bipap Ventilator Type Not Reportable Not Reportable Vent Mode Not Reportable Not Reportable FiO2 Not Reportable 40 Inspiratory Time Not Reportable Not Reportable PEEP Not Reportable Not Reportable Pressure Support Not Reportable Not Reportable Pressure Control Not Reportable Not Reportable EPAP Not Reportable 5 IPAP Not Reportable 14 BiPAP Not Reportable Not Reportable Sodium (133-145) mmol/L Potassium (3.5-5.0) mmol/L Chloride (101-111) mmol/L Carbon Dioxide (22-32) mmol/L Anion Gap (2-11) mmol/L BUN (6-24) mg/dL Creatinine (0.67-1.17) mg/dL Est GFR ( Amer) (>60) Est GFR (Non-Af Amer) (>60) BUN/Creatinine Ratio (8-20) Glucose (70-100) mg/dL Lactic Acid (0.5-2.0) mmol/L Calcium (8.6-10.3) mg/dL Total Bilirubin (0.2-1.0) mg/dL AST (13-39) U/L ALT (7-52) U/L Alkaline Phosphatase (34-104) U/L Total Creatine Kinase (10-223) U/L CK-MB (CK-2) (0.6-6.3) ng/mL Myoglobin (17.4-105.7) ng/mL Troponin I (<0.04) ng/mL C-Reactive Protein (< 5.00) mg/L B-Natriuretic Peptide 15 ( - 100) pg/mL Total Protein (6.4-8.9) g/dL Albumin (3.2-5.2) g/dL Globulin (2-4) g/dL Albumin/Globulin Ratio (1-3) Microbiology and Other Data: Microbiology 07/02/16 15:57 Aerobic Blood Culture - Preliminary Blood Venous No Growth Day 1 Anaerobic Blood Culture - Preliminary No Growth Day 1 07/02/16 15:57 Aerobic Blood Culture - Preliminary Blood Venous No Growth Day 1 Anaerobic Blood Culture - Preliminary No Growth Day 1 Assess/Plan/Problems-Billing Assessment: 56 yo M h/o CAD, asthma/COPD, schizophrenia d/o, DM2 p/w hallucinations found with acute hypercarbic respiratory failure in setting of acute COPD exacerbation - Patient Problems (1) Altered mental status Comment: On presentation now improving in setting of acute CO2 retention follow up with psychiatry re recommendations requested especially in setting of reported hallucinations yesterday (2) COPD exacerbation Comment: Prednisone 40 mg daily on 07/05 - taper on discharge Continue Spiriva, Dulera, prn albuterol. completed Azithromycin 5 days Overnight oximetry off NIPPV showed only 4 episodes of desat <89% lasting over 3 minutes, the longest lasting 3 min 24 sec. CO2 retention noted. (3) Hypothyroidism Comment: Continue synthroid. TSH wnl on presentation (4) DM type 2 (diabetes mellitus, type 2) Comment: Glipizide, Lispro by SS ordered. Linagliptin not available. (5) DVT prophylaxis Comment: SQ heparin
[2016-07-07] MEDS: glipiZIDE TAB* 5 MG PO SCH ×2 (08:17→17:19)
[2016-07-07] MEDS: SITAGLIPTIN 50 MG PO SCH (08:17)
[2016-07-07] MEDS: guaiFENesin LIQ* 100 MG/5 ML UDC PO SCH ×4 (08:17→21:10)
[2016-07-07] MEDS: Sertraline* 100 MG TAB PO SCH (08:18)
[2016-07-07] MEDS: Insulin LISPRO* 1 UNITS UNIT SUBCUT SCH ×4 (08:18→22:48)
[2016-07-07] MEDS: predniSONE TAB* 20 MG PO SCH (08:18)
[2016-07-07] MEDS: Lisinopril TAB* 10 MG PO SCH (08:18)
--- NOTE | 2016-07-07 13:04 | CONSULT ---
Consult Consult: S: I saw the patient this AM for psychiatric follow up. He was sitting up in bed with a nasal canula in place and a health aide seated next to him. He remains confused and disoriented, for example, other than "2017", which he repeats perseveratively several times, he does not know the current time. When asked if he has met with his doctor this morning he responds no, which is contradicted by the aide. The patient is an extremely limited historian who cannot inform me where he resides or with whom, although he does indicate that his psychiatrist is Dr. Fajardo. For collateral I contacted both Dr. Fajardo ([phone]) and case assistant Ramana Ponce ([phone]), both at [facility], who indicate that the patient has been psychiatrically stable and last received his shot of Invega Sustenna on June 20 of this year. They indicate that he lives independently in an apartment building in [facility] and that he does not have confusion, auditory hallucinations or disorganized behavior at his baseline. The note that the patient has visiting nursing services every other week to pack his meds and look after his apartment but that he is known to be non-adherent with wearing his portable O2 device at home or in public. O: the patient is a morbidly obese white male in scrubs with a nasal canula. He is cooperative and polite. He is euthymic and denies SI, HI, or VH. He does admit to recent AH of a neutral, non-troubling nature. He is confused and not oriented to time, place or situation. He has gross disturbance in memory. A/P: 1. Delirium: secondary to respiratory condition. The patient is non- adherent with home oxygen but uncertain what else may have contributed to this. He is taking olanzapine orally and paliparidone long-acting by injection ( last on 06/20/16). The primary team may want to temporarily augment these with haloperidol 5mg PO q6h prn until his encephalopathy resolves. I don't believe psychiatric hospitalization would benefit him as he is neither homicidal nor suicidal and is not capable of participating in unit therapeutic programming. Further collateral sources are available at [facility] (numbers above). 2. Schizoaffective DO, Bipolar Type: stable on olanzapine and paliperidone as of his last visit at [facility] in early June. Psychiatry to continue to follow.
[2016-07-07] MEDS: OLANzapine TAB* 10 MG PO SCH (21:09)
[2016-07-07] MEDS: Atorvastatin* 20 MG TAB PO SCH (21:10)
[2016-07-08] MEDS: Levothyroxine TAB* 112 MCG TAB PO SCH (06:06)
[2016-07-08] MEDS: Heparin VIAL(*) 5000 UNITS/ML VIAL (FIVE THOUSAND) SUBCUT SCH ×3 (06:08→20:30)
[2016-07-08] MEDS: glipiZIDE TAB* 5 MG PO SCH ×2 (08:10→16:59)
[2016-07-08] MEDS: Insulin LISPRO* 1 UNITS UNIT SUBCUT SCH ×4 (08:10→20:29)
[2016-07-08] MEDS: guaiFENesin LIQ* 100 MG/5 ML UDC PO SCH ×4 (08:11→20:28)
[2016-07-08] MEDS: Sertraline* 100 MG TAB PO SCH (08:11)
[2016-07-08] MEDS: Lisinopril TAB* 10 MG PO SCH (08:11)
[2016-07-08] MEDS: predniSONE TAB* 20 MG PO SCH (08:11)
[2016-07-08] MEDS: SITAGLIPTIN 50 MG PO SCH (08:11)
--- NOTE | 2016-07-08 11:00 | PN ---
Subjective Date of Service: 07/08/16 Interval History: Seen and examined Mentation much improved No hallucinations Up and walking back and forth to bathroom Able to indicate why he was in the hospital Objective Active Medications: Acetaminophen (Tylenol Tab*) 650 mg PO Q4H PRN PRN Reason: FEVER/PAIN Last Admin: 07/04/16 15:17 Dose: 650 mg Albuterol (Ventolin 2.5 Mg/3 Ml Neb.Manisha*) 2.5 mg INH [id number] AWAKE PRN PRN Reason: sob/wheezing Atorvastatin Calcium (Lipitor*) 40 mg PO BEDTIME [facility] Last Admin: 07/07/16 21:10 Dose: 40 mg Dextrose (D50w Syringe 50 Ml*) 12.5 gm IV PUSH .FOR FS < 60 - SS PRN PRN Reason: FS < 60 Glipizide (Glucotrol Tab*) 5 mg PO BID AC [facility] Last Admin: 07/08/16 08:10 Dose: 5 mg Guaifenesin (Robitussin*) 10 ml PO QID [facility] Last Admin: 07/08/16 08:11 Dose: 10 ml Heparin Sodium (Porcine) (Heparin Vial(*)) 5,000 units SUBCUT Q8HR [facility] Last Admin: 07/08/16 06:08 Dose: Not Given Insulin Human Lispro (Humalog*) 0 units SUBCUT ACHS [facility] PRN Reason: Protocol Last Admin: 07/08/16 08:10 Dose: 3 unit Levothyroxine Sodium (Synthroid Tab*) 112 mcg PO 0600 [facility] Last Admin: 07/08/16 06:06 Dose: 112 mcg Lisinopril (Prinivil Tab*) 10 mg PO DAILY [facility] Last Admin: 07/08/16 08:11 Dose: 10 mg Olanzapine (Zyprexa Tab*) 20 mg PO BEDTIME [facility] Last Admin: 07/07/16 21:09 Dose: 20 mg Ondansetron HCl (Zofran Inj*) 4 mg IV Q4H PRN PRN Reason: NAUSEA/VOMITING Prednisone (Deltasone Tab*) 40 mg PO DAILY [facility] Last Admin: 07/08/16 08:11 Dose: 40 mg Sertraline HCl (Zoloft*) 200 mg PO DAILY [facility] Last Admin: 07/08/16 08:11 Dose: 200 mg Sitagliptin Phosphate (Januvia (Nf)) 50 mg PO DAILY [facility] Last Admin: 07/08/16 08:11 Dose: 50 mg Trazodone HCl (Desyrel Tab*) 50 mg PO BEDTIME PRN PRN Reason: SLEEP Last Admin: 07/02/16 20:25 Dose: 50 mg Vital Signs 07/07/16 07/07/16 07/08/16 15:32 20:00 02:45 Temperature 99.0 F Pulse Rate 96 Respiratory 18 16 Rate Blood Pressure 105/64 (mmHg) O2 Sat by Pulse 90 91 Oximetry 07/08/16 07/08/16 06:01 07:52 Temperature 99.0 F 98.1 F Pulse Rate 80 100 Respiratory 19 17 Rate Blood Pressure 111/46 145/94 (mmHg) O2 Sat by Pulse 90 92 Oximetry Oxygen Devices in Use Now: None Appearance: sitting in chair, NAD Eyes: No Scleral Icterus, PERRLA Ears/Nose/Mouth/Throat: Clear Oropharnyx, Mucous Membranes Moist Neck: NL Appearance and Movements; NL JVP, Trachea Midline Respiratory: Symmetrical Chest Expansion and Respiratory Effort, Clear to Auscultation Cardiovascular: RRR Abdominal: NL Sounds; No Tenderness; No Distention, No Hepatosplenomegaly Extremities: No Edema Skin: No Rash or Ulcers Neurological: Alert and Oriented x 3 Result Diagrams: 07/06/16 05:09 07/06/16 05:09 Additional Lab and Data: Lab Results 07/02/16 07/02/16 07/02/16 Range/Units 14:03 14:03 14:03 WBC 11.4 H (3.5-10.8) 10^3/ul RBC 4.76 (4.0-5.4) 10^6/ul Hgb 14.3 (14.0-18.0) g/dl Hct 43 (42-52) % MCV 91 (80-94) fL MCH 30 (27-31) pg MCHC 33 (31-36) g/dl RDW 14 (10.5-15) % Plt Count 232 (150-450) 10^3/ul MPV 8 (7.4-10.4) um3 Neut % (Auto) 81.3 (38-83) % Lymph % (Auto) 10.7 L (25-47) % Phelps % (Auto) 5.3 (1-9) % Eos % (Auto) 1.8 (0-6) % Baso % (Auto) 0.9 (0-2) % Absolute Neuts (auto) 9.3 H (1.5-7.7) 10^3/ul Absolute Lymphs (auto) 1.2 (1.0-4.8) 10^3/ul Absolute Monos (auto) 0.6 (0-0.8) 10^3/ul Absolute Eos (auto) 0.2 (0-0.6) 10^3/ul Absolute Basos (auto) 0.1 (0-0.2) 10^3/ul Absolute Nucleated RBC 0.01 10^3/ul Nucleated RBC % 0.1 Patient Temperature ABG pH (7.35-7.45) ABG pCO2 (35-45) mmHg ABG pO2 (80-100) mmHg ABG HCO3 (19-31) mmol/L ABG O2 Saturation (95-98) % ABG Base Excess (-2.0-2.0) Respiration Rate O2 Delivery Device Ventilator Type Vent Mode FiO2 Inspiratory Time PEEP Pressure Support Pressure Control EPAP IPAP BiPAP Sodium 130 L (133-145) mmol/L Potassium 4.6 (3.5-5.0) mmol/L Chloride 96 L (101-111) mmol/L Carbon Dioxide 31 (22-32) mmol/L Anion Gap 3 (2-11) mmol/L BUN 16 (6-24) mg/dL Creatinine 0.81 (0.67-1.17) mg/dL Est GFR ( Amer) 126.8 (>60) Est GFR (Non-Af Amer) 98.6 (>60) BUN/Creatinine Ratio 19.8 (8-20) Glucose 138 H (70-100) mg/dL Lactic Acid < 0.3 L (0.5-2.0) mmol/L Calcium 9.2 (8.6-10.3) mg/dL Total Bilirubin 0.30 (0.2-1.0) mg/dL AST 16 (13-39) U/L ALT 15 (7-52) U/L Alkaline Phosphatase 57 (34-104) U/L Total Creatine Kinase 143 (10-223) U/L CK-MB (CK-2) 4.7 (0.6-6.3) ng/mL Myoglobin 50.3 (17.4-105.7) ng/mL Troponin I 0.01 (<0.04) ng/mL C-Reactive Protein 7.83 H (< 5.00) mg/L B-Natriuretic Peptide ( - 100) pg/mL Total Protein 6.9 (6.4-8.9) g/dL Albumin 4.0 (3.2-5.2) g/dL Globulin 2.9 (2-4) g/dL Albumin/Globulin Ratio 1.4 (1-3) 07/02/16 07/02/16 07/02/16 Range/Units 14:03 14:08 15:53 WBC (3.5-10.8) 10^3/ul RBC (4.0-5.4) 10^6/ul Hgb (14.0-18.0) g/dl Hct (42-52) % MCV (80-94) fL MCH (27-31) pg MCHC (31-36) g/dl RDW (10.5-15) % Plt Count (150-450) 10^3/ul MPV (7.4-10.4) um3 Neut % (Auto) (38-83) % Lymph % (Auto) (25-47) % Phelps % (Auto) (1-9) % Eos % (Auto) (0-6) % Baso % (Auto) (0-2) % Absolute Neuts (auto) (1.5-7.7) 10^3/ul Absolute Lymphs (auto) (1.0-4.8) 10^3/ul Absolute Monos (auto) (0-0.8) 10^3/ul Absolute Eos (auto) (0-0.6) 10^3/ul Absolute Basos (auto) (0-0.2) 10^3/ul Absolute Nucleated RBC 10^3/ul Nucleated RBC % Patient Temperature Not Reportable Not Reportable ABG pH 7.28 L Pending (7.35-7.45) ABG pCO2 72 H* Pending (35-45) mmHg ABG pO2 82 Pending (80-100) mmHg ABG HCO3 28.2 Pending (19-31) mmol/L ABG O2 Saturation 97.7 Pending (95-98) % ABG Base Excess 4.4 H Pending (-2.0-2.0) Respiration Rate Not Reportable 14 O2 Delivery Device 3 bipap Ventilator Type Not Reportable Not Reportable Vent Mode Not Reportable Not Reportable FiO2 Not Reportable 40 Inspiratory Time Not Reportable Not Reportable PEEP Not Reportable Not Reportable Pressure Support Not Reportable Not Reportable Pressure Control Not Reportable Not Reportable EPAP Not Reportable 5 IPAP Not Reportable 14 BiPAP Not Reportable Not Reportable Sodium (133-145) mmol/L Potassium (3.5-5.0) mmol/L Chloride (101-111) mmol/L Carbon Dioxide (22-32) mmol/L Anion Gap (2-11) mmol/L BUN (6-24) mg/dL Creatinine (0.67-1.17) mg/dL Est GFR ( Amer) (>60) Est GFR (Non-Af Amer) (>60) BUN/Creatinine Ratio (8-20) Glucose (70-100) mg/dL Lactic Acid (0.5-2.0) mmol/L Calcium (8.6-10.3) mg/dL Total Bilirubin (0.2-1.0) mg/dL AST (13-39) U/L ALT (7-52) U/L Alkaline Phosphatase (34-104) U/L Total Creatine Kinase (10-223) U/L CK-MB (CK-2) (0.6-6.3) ng/mL Myoglobin (17.4-105.7) ng/mL Troponin I (<0.04) ng/mL C-Reactive Protein (< 5.00) mg/L B-Natriuretic Peptide 15 ( - 100) pg/mL Total Protein (6.4-8.9) g/dL Albumin (3.2-5.2) g/dL Globulin (2-4) g/dL Albumin/Globulin Ratio (1-3) Microbiology and Other Data: Microbiology 07/02/16 15:57 Aerobic Blood Culture - Preliminary Blood Venous No Growth Day 1 Anaerobic Blood Culture - Preliminary No Growth Day 1 07/02/16 15:57 Aerobic Blood Culture - Preliminary Blood Venous No Growth Day 1 Anaerobic Blood Culture - Preliminary No Growth Day 1 Assess/Plan/Problems-Billing Assessment: 56 yo M h/o CAD, asthma/COPD, schizophrenia d/o, DM2 p/w hallucinations found with acute hypercarbic respiratory failure in setting of acute COPD exacerbation - Patient Problems (1) Altered mental status Status: Resolved Comment: On presentation now resolved - in setting of acute CO2 retention appreciate psychiatry evaluation (2) COPD exacerbation Comment: Prednisone decreased to 20 mg for 5 additional days Lungs now clear Continue Spiriva, Dulera, prn albuterol. - dulera rx new on discharge (3) Hypothyroidism Comment: Continue synthroid. TSH wnl on presentation (4) DM type 2 (diabetes mellitus, type 2) Comment: Glipizide, Lispro by SS ordered. Linagliptin not available will restart on d/c (5) DVT prophylaxis Comment: SQ heparin Status and Disposition: Long history of med non adherence in setting of underlying psychiatric comorbidities. Waiting on response from [facility] or his outpatient coordinator prior to d/c. Possibly today or tomorrow
--- NOTE | 2016-07-08 12:10 | DS ---
DISCHARGE SUMMARY: DATE OF ADMISSION: 07/02/16 DATE OF DISCHARGE: 07/10/16 PRIMARY CARE PROVIDER: Chris Loyola MD, Ph.D. PSYCHIATRIST: Porfirio Arciniega MD. PRIMARY DIAGNOSES: 1. Hypercarbic respiratory failure. 2. Chronic obstructive pulmonary disease exacerbation. SECONDARY DIAGNOSES: Include, 1. Asthma. 2. Depression. 3. Schizophrenia. 4. Diabetes. 5. Hypothyroidism. 6. Bipolar disorder. 7. Morbid obesity. 8. History of chronic artery disease. 9. Tobacco abuse. 10. Medication nonadherence. MEDICATIONS ON DISCHARGE: 1. Zoloft 200 mg daily. 2. Zyprexa 20 mg at bedtime. 3. Invega 156 mg IM every 30 days. Last administered, 20 of June. 4. Lisinopril 10 mg daily. 5. Tradjenta 5 mg daily. 6. Synthroid 112 micrograms daily. 7. Glipizide 5 mg twice daily with meals. 8. Simvastatin 40 mg at bedtime. 9. Trazodone 50 mg at bedtime as needed. 10. Prednisone 20 mg for 5 additional days. 11. Dulera 200/5 MDI 2 puffs twice daily. Please note this is a new medication. 12. Albuterol HFA one puff every 4 hours as needed for shortness of breath. Please note addition of new medication. PERTINENT LABORATORY DATA: Arterial blood gas on presentation pH 7.2, pCO2 of 72. PERTINENT MICROBIOLOGY: Blood cultures, no growth to date. PERTINENT VITAL SIGNS: Fever on 07/03/16 to 100.3 otherwise afebrile during the course of the hospital stay. HISTORY OF PRESENT ILLNESS AND HOSPITAL COURSE: This is a 56-year-old gentleman , past medical history as outlined in the history of present illness on the day of admission outlined in Dr. Mariscal's note including morbid obesity, COPD and several psychiatric comorbidities, continued tobacco abuse presented to the hospital with altered mental status as well as hearing voices, he was found in hypercarbic respiratory failure. He was started on BiPAP with improvement, monitored in the ICU. IV steroids were started on admission and in conjunction with COPD exacerbation treatment including steroids. The patient's breathing improved dramatically as did his mental status. He was maintained on his home medications for his psychiatric illnesses. He was seen in conjunction by Psychiatry and his altered mental status improved secondary to his respiratory distress. No medication changes were made. On the day of discharge, patient was interactive. He was alert and oriented x3. He was able to tell this author where he lives, how he obtains his food, what his favorite food is. He is able to indicate what he would do in the case of an emergency and what would constitute an emergency. He was ambulating back and forth to the bathroom without assistance. He felt comfortable returning home. His lungs are clear to auscultation. He had a regular rate and rhythm. He had trace lower extremity edema. He was appropriate, interactive and he had absence of hallucinations and was generally at his baseline. We were unable to arrange for patient's home nursing to begin over the weekend and therefore the patient remained hospitalized for an additional 2 days. Over the following to days his breathing continued to improve. He only used oxygen while sleeping. He had no complaints in the day of discharge and was anxious to return home. At followup, please: 1. Evaluate for continued stability of his respiratory status on Dulera. He was discharged with 5 additional days of 20 mg, prednisone decreased from 40 mg. Please evaluate for need for continued course. 2. Please ensure patient receives next dose of Invega beginning of July. 3. Please sexual abuse counsellor continuing his smoking cessation. 4. Please ensure continued glucose control. Blood sugar is slightly higher during the course of the hospital stay. I will not change his medications in the setting of medication nonadherence and difficulties with changes to his medication. I expect blood sugar will normalize after 5 days of prednisone is discontinued. Reasons to return to the hospital including, but not limited to recurrent or worsening symptoms, including shortness of breath or wheeze, chest pain, lightheadedness, nausea, vomiting, fevers, abdominal pain, coughing, changes in his mental status again, loss of consciousness or near consciousness, inability to obtain or tolerate his medications were discussed, the patient acknowledged understanding. TIME SPENT: Greater than 60 minutes were spent discharging the patient, greater than half spent [id number] with the patient. CC: Chris Loyola MD, Ph.D.; Porfirio Arciniega MD. * [id number]/CPS #: [id number] MTDD
[2016-07-08] MEDS: traZODone TAB* 50 MG TAB PO PRN (20:29)
[2016-07-08] MEDS: Atorvastatin* 20 MG TAB PO SCH (20:29)
[2016-07-08] MEDS: OLANzapine TAB* 10 MG PO SCH (20:30)
[2016-07-09] MEDS: CMCS: Melatonin (NF) 3 MG TAB PO PRN (01:30)
[2016-07-09] MEDS: Levothyroxine TAB* 112 MCG TAB PO SCH (06:11)
[2016-07-09] MEDS: Heparin VIAL(*) 5000 UNITS/ML VIAL (FIVE THOUSAND) SUBCUT SCH ×3 (06:11→22:13)
[2016-07-09] MEDS: Insulin LISPRO* 1 UNITS UNIT SUBCUT SCH ×4 (08:14→22:14)
[2016-07-09] MEDS: guaiFENesin LIQ* 100 MG/5 ML UDC PO SCH ×4 (08:14→22:14)
[2016-07-09] MEDS: glipiZIDE TAB* 5 MG PO SCH ×2 (08:15→17:07)
[2016-07-09] MEDS: SITAGLIPTIN 50 MG PO SCH (08:15)
[2016-07-09] MEDS: Lisinopril TAB* 10 MG PO SCH (08:15)
[2016-07-09] MEDS: predniSONE TAB* 20 MG PO SCH (08:15)
[2016-07-09] MEDS: Sertraline* 100 MG TAB PO SCH (08:15)
--- NOTE | 2016-07-09 17:25 | PN ---
Subjective Date of Service: 07/09/16 Interval History: Seen and examined Discussed that we were still waiting for his home nursing to be reinstated before discharge He told me that he looks at the bright side of things and that "life has a left side and a right side" Thinks his breathing is at baseline. Is optimistic that he will do well at home but does tell me he needs help with his medications Objective Active Medications: Acetaminophen (Tylenol Tab*) 650 mg PO Q4H PRN PRN Reason: FEVER/PAIN Last Admin: 07/04/16 15:17 Dose: 650 mg Albuterol (Ventolin 2.5 Mg/3 Ml Neb.Manisha*) 2.5 mg INH [id number] AWAKE PRN PRN Reason: sob/wheezing Atorvastatin Calcium (Lipitor*) 40 mg PO BEDTIME [facility] Last Admin: 07/08/16 20:29 Dose: 40 mg Dextrose (D50w Syringe 50 Ml*) 12.5 gm IV PUSH .FOR FS < 60 - SS PRN PRN Reason: FS < 60 Glipizide (Glucotrol Tab*) 5 mg PO BID AC [facility] Last Admin: 07/09/16 17:07 Dose: 5 mg Guaifenesin (Robitussin*) 10 ml PO QID [facility] Last Admin: 07/09/16 17:05 Dose: 10 ml Heparin Sodium (Porcine) (Heparin Vial(*)) 5,000 units SUBCUT Q8HR [facility] Last Admin: 07/09/16 12:06 Dose: 5,000 units Insulin Human Lispro (Humalog*) 0 units SUBCUT ACHS [facility] PRN Reason: Protocol Last Admin: 07/09/16 17:07 Dose: 3 unit Levothyroxine Sodium (Synthroid Tab*) 112 mcg PO 0600 [facility] Last Admin: 07/09/16 06:11 Dose: 112 mcg Lisinopril (Prinivil Tab*) 10 mg PO DAILY [facility] Last Admin: 07/09/16 08:15 Dose: 10 mg Melatonin (Melatonin (Nf)) 3 mg PO BEDTIME PRN; Protocol PRN Reason: Sleep Last Admin: 07/09/16 01:30 Dose: 3 mg Olanzapine (Zyprexa Tab*) 20 mg PO BEDTIME [facility] Last Admin: 07/08/16 20:30 Dose: 20 mg Ondansetron HCl (Zofran Inj*) 4 mg IV Q4H PRN PRN Reason: NAUSEA/VOMITING Prednisone (Deltasone Tab*) 20 mg PO DAILY [facility] Sertraline HCl (Zoloft*) 200 mg PO DAILY [facility] Last Admin: 07/09/16 08:15 Dose: 200 mg Sitagliptin Phosphate (Januvia (Nf)) 50 mg PO DAILY [facility] Last Admin: 07/09/16 08:15 Dose: 50 mg Trazodone HCl (Desyrel Tab*) 50 mg PO BEDTIME PRN PRN Reason: SLEEP Last Admin: 07/08/16 20:29 Dose: 50 mg Vital Signs 07/08/16 07/08/16 07/09/16 20:00 23:00 00:34 Temperature 98.3 F Pulse Rate 80 Respiratory 20 16 Rate Blood Pressure 123/57 (mmHg) O2 Sat by Pulse 99 92 Oximetry 07/09/16 07/09/16 07:28 08:00 Temperature 98.1 F Pulse Rate 91 Respiratory 16 Rate Blood Pressure 128/70 (mmHg) O2 Sat by Pulse 90 Oximetry Oxygen Devices in Use Now: None Appearance: obese, sitting in chair, NAD Eyes: No Scleral Icterus, PERRLA Ears/Nose/Mouth/Throat: Clear Oropharnyx, Mucous Membranes Moist Neck: NL Appearance and Movements; NL JVP, Trachea Midline Respiratory: Symmetrical Chest Expansion and Respiratory Effort, Clear to Auscultation Cardiovascular: NL Sounds; No Murmurs; No JVD, RRR Abdominal: NL Sounds; No Tenderness; No Distention Lymphatic: No Cervical Adenopathy Extremities: No Edema Skin: No Rash or Ulcers Neurological: Alert and Oriented x 3 Result Diagrams: 07/06/16 05:09 07/06/16 05:09 Additional Lab and Data: Lab Results 07/02/16 07/02/16 07/02/16 Range/Units 14:03 14:03 14:03 WBC 11.4 H (3.5-10.8) 10^3/ul RBC 4.76 (4.0-5.4) 10^6/ul Hgb 14.3 (14.0-18.0) g/dl Hct 43 (42-52) % MCV 91 (80-94) fL MCH 30 (27-31) pg MCHC 33 (31-36) g/dl RDW 14 (10.5-15) % Plt Count 232 (150-450) 10^3/ul MPV 8 (7.4-10.4) um3 Neut % (Auto) 81.3 (38-83) % Lymph % (Auto) 10.7 L (25-47) % Lewis % (Auto) 5.3 (1-9) % Eos % (Auto) 1.8 (0-6) % Baso % (Auto) 0.9 (0-2) % Absolute Neuts (auto) 9.3 H (1.5-7.7) 10^3/ul Absolute Lymphs (auto) 1.2 (1.0-4.8) 10^3/ul Absolute Monos (auto) 0.6 (0-0.8) 10^3/ul Absolute Eos (auto) 0.2 (0-0.6) 10^3/ul Absolute Basos (auto) 0.1 (0-0.2) 10^3/ul Absolute Nucleated RBC 0.01 10^3/ul Nucleated RBC % 0.1 Patient Temperature ABG pH (7.35-7.45) ABG pCO2 (35-45) mmHg ABG pO2 (80-100) mmHg ABG HCO3 (19-31) mmol/L ABG O2 Saturation (95-98) % ABG Base Excess (-2.0-2.0) Respiration Rate O2 Delivery Device Ventilator Type Vent Mode FiO2 Inspiratory Time PEEP Pressure Support Pressure Control EPAP IPAP BiPAP Sodium 130 L (133-145) mmol/L Potassium 4.6 (3.5-5.0) mmol/L Chloride 96 L (101-111) mmol/L Carbon Dioxide 31 (22-32) mmol/L Anion Gap 3 (2-11) mmol/L BUN 16 (6-24) mg/dL Creatinine 0.81 (0.67-1.17) mg/dL Est GFR ( Amer) 126.8 (>60) Est GFR (Non-Af Amer) 98.6 (>60) BUN/Creatinine Ratio 19.8 (8-20) Glucose 138 H (70-100) mg/dL Lactic Acid < 0.3 L (0.5-2.0) mmol/L Calcium 9.2 (8.6-10.3) mg/dL Total Bilirubin 0.30 (0.2-1.0) mg/dL AST 16 (13-39) U/L ALT 15 (7-52) U/L Alkaline Phosphatase 57 (34-104) U/L Total Creatine Kinase 143 (10-223) U/L CK-MB (CK-2) 4.7 (0.6-6.3) ng/mL Myoglobin 50.3 (17.4-105.7) ng/mL Troponin I 0.01 (<0.04) ng/mL C-Reactive Protein 7.83 H (< 5.00) mg/L B-Natriuretic Peptide ( - 100) pg/mL Total Protein 6.9 (6.4-8.9) g/dL Albumin 4.0 (3.2-5.2) g/dL Globulin 2.9 (2-4) g/dL Albumin/Globulin Ratio 1.4 (1-3) 07/02/16 07/02/16 07/02/16 Range/Units 14:03 14:08 15:53 WBC (3.5-10.8) 10^3/ul RBC (4.0-5.4) 10^6/ul Hgb (14.0-18.0) g/dl Hct (42-52) % MCV (80-94) fL MCH (27-31) pg MCHC (31-36) g/dl RDW (10.5-15) % Plt Count (150-450) 10^3/ul MPV (7.4-10.4) um3 Neut % (Auto) (38-83) % Lymph % (Auto) (25-47) % Lewis % (Auto) (1-9) % Eos % (Auto) (0-6) % Baso % (Auto) (0-2) % Absolute Neuts (auto) (1.5-7.7) 10^3/ul Absolute Lymphs (auto) (1.0-4.8) 10^3/ul Absolute Monos (auto) (0-0.8) 10^3/ul Absolute Eos (auto) (0-0.6) 10^3/ul Absolute Basos (auto) (0-0.2) 10^3/ul Absolute Nucleated RBC 10^3/ul Nucleated RBC % Patient Temperature Not Reportable Not Reportable ABG pH 7.28 L Pending (7.35-7.45) ABG pCO2 72 H* Pending (35-45) mmHg ABG pO2 82 Pending (80-100) mmHg ABG HCO3 28.2 Pending (19-31) mmol/L ABG O2 Saturation 97.7 Pending (95-98) % ABG Base Excess 4.4 H Pending (-2.0-2.0) Respiration Rate Not Reportable 14 O2 Delivery Device 3 bipap Ventilator Type Not Reportable Not Reportable Vent Mode Not Reportable Not Reportable FiO2 Not Reportable 40 Inspiratory Time Not Reportable Not Reportable PEEP Not Reportable Not Reportable Pressure Support Not Reportable Not Reportable Pressure Control Not Reportable Not Reportable EPAP Not Reportable 5 IPAP Not Reportable 14 BiPAP Not Reportable Not Reportable Sodium (133-145) mmol/L Potassium (3.5-5.0) mmol/L Chloride (101-111) mmol/L Carbon Dioxide (22-32) mmol/L Anion Gap (2-11) mmol/L BUN (6-24) mg/dL Creatinine (0.67-1.17) mg/dL Est GFR ( Amer) (>60) Est GFR (Non-Af Amer) (>60) BUN/Creatinine Ratio (8-20) Glucose (70-100) mg/dL Lactic Acid (0.5-2.0) mmol/L Calcium (8.6-10.3) mg/dL Total Bilirubin (0.2-1.0) mg/dL AST (13-39) U/L ALT (7-52) U/L Alkaline Phosphatase (34-104) U/L Total Creatine Kinase (10-223) U/L CK-MB (CK-2) (0.6-6.3) ng/mL Myoglobin (17.4-105.7) ng/mL Troponin I (<0.04) ng/mL C-Reactive Protein (< 5.00) mg/L B-Natriuretic Peptide 15 ( - 100) pg/mL Total Protein (6.4-8.9) g/dL Albumin (3.2-5.2) g/dL Globulin (2-4) g/dL Albumin/Globulin Ratio (1-3) Microbiology and Other Data: Microbiology 07/02/16 15:57 Aerobic Blood Culture - Preliminary Blood Venous No Growth Day 1 Anaerobic Blood Culture - Preliminary No Growth Day 1 07/02/16 15:57 Aerobic Blood Culture - Preliminary Blood Venous No Growth Day 1 Anaerobic Blood Culture - Preliminary No Growth Day 1 Assess/Plan/Problems-Billing Assessment: 56 yo M h/o CAD, asthma/COPD, schizophrenia d/o, DM2 p/w hallucinations found with acute hypercarbic respiratory failure in setting of acute COPD exacerbation - Patient Problems (1) Altered mental status Status: Resolved Comment: On presentation now resolved - in setting of acute CO2 retention appreciate psychiatry evaluation (2) COPD exacerbation Comment: Prednisone decreased to 20 mg for 5 additional days Lungs now clear Continue Spiriva, Dulera, prn albuterol. - dulera rx new on discharge (3) Hypothyroidism Comment: Continue synthroid. TSH wnl on presentation (4) DM type 2 (diabetes mellitus, type 2) Comment: Glipizide, Lispro by SS ordered. Linagliptin not available will restart on d/c (5) DVT prophylaxis Comment: SQ heparin Status and Disposition: Long history of med non adherence in setting of underlying psychiatric comorbidities. Waiting on response from [facility] or his outpatient coordinator prior to d/c. Likely tomorrow
[2016-07-09] MEDS: Atorvastatin* 20 MG TAB PO SCH (22:13)
[2016-07-09] MEDS: OLANzapine TAB* 10 MG PO SCH (22:13)
[2016-07-09] MEDS: traZODone TAB* 50 MG TAB PO PRN (23:19)
[2016-07-10] MEDS: CMCS: Melatonin (NF) 3 MG TAB PO PRN (00:59)
[2016-07-10] MEDS: Heparin VIAL(*) 5000 UNITS/ML VIAL (FIVE THOUSAND) SUBCUT SCH (05:33)
[2016-07-10] MEDS: Levothyroxine TAB* 112 MCG TAB PO SCH (05:33)
[2016-07-10 07:30] VITALS: BP 122/62
[2016-07-10] MEDS: Lisinopril TAB* 10 MG PO SCH (08:54)
[2016-07-10] MEDS: Sertraline* 100 MG TAB PO SCH (08:54)
[2016-07-10] MEDS: glipiZIDE TAB* 5 MG PO SCH (08:54)
[2016-07-10] MEDS: SITAGLIPTIN 50 MG PO SCH (08:55)
[2016-07-10] MEDS: Insulin LISPRO* 1 UNITS UNIT SUBCUT SCH (08:55)
[2016-07-10] MEDS: guaiFENesin LIQ* 100 MG/5 ML UDC PO SCH (08:57)
[2016-07-10] MEDS ORDERED: predniSONE TAB* 20 MG PO SCH (09:00)
== END 2016-07-10 12:05 | disposition home health service (06) | DRG 189 ==
LOC: ED 13:44 → ICU 15:41 → MED 07-04 07:42
PROVIDERS: ADMIT Internal Medicine; ATTEND Internal Medicine
PROC: 5A09457 Assistance with Respiratory Ventilation, 24-96 Consecutive Hours, Continuous Positive Airway Pressure (ICD-10-PCS; principal; 2016-07-02)
DX: J96.02 Acute respiratory failure with hypercapnia (principal); J44.1 Chronic obstructive pulmonary disease with (acute) exacerbation; Z68.43 Body mass index [BMI] 50.0-59.9, adult; J45.909 Unspecified asthma, uncomplicated; F20.9 Schizophrenia, unspecified; F32.9 Major depressive disorder, single episode, unspecified; E11.9 Type 2 diabetes mellitus without complications; E03.9 Hypothyroidism, unspecified; F31.9 Bipolar disorder, unspecified; E66.01 Morbid (severe) obesity due to excess calories; F17.210 Nicotine dependence, cigarettes, uncomplicated; M54.9 Dorsalgia, unspecified; Z79.84 Long term (current) use of oral hypoglycemic drugs; Z79.899 Other long term (current) drug therapy; Z88.8 Allergy status to other drugs, medicaments and biological substances; Z91.013 Allergy to seafood; Z91.14 Patient's other noncompliance with medication regimen
CPT/HCPCS: 36415; 36600; 71020; 80048; 80053; 81003; 82550; 82553; 82803; 83605; 83874; 83880; 84443; 84484; 85025; 86140; 87040; 93005; 94640; 94660; 94760; 99406; A9270-GY; J0456; J1644; J2930; J7512

== ENCOUNTER 2016-07-11 14:56 | Observation (INO) | payer MEDICARE, MEDICAID ==
[2016-07-11] MEDS ORDERED: NS 0.9% 1000 ML* 1,000 ML IV ONE ×3 (16:24→16:51)
[2016-07-11 16:38] LABS: Hematocrit 43 % (42-52); Hemoglobin 14.2 g/dl (14.0-18.0); Mean Corpuscular HGB Conc 33 g/dl (31-36); Mean Corpuscular Hemoglobin 30 pg (27-31); Mean Corpuscular Volume 89 fL (80-94); Mean Platelet Volume 8 um3 (7.4-10.4); Red Blood Count 4.79 10^6/ul (4.0-5.4); Red Cell Distribution Width 14 % (10.5-15); White Blood Count 20.9 10^3/ul (3.5-10.8)
[2016-07-11] MEDS ORDERED: Vancomycin(*) 2,000 MG in NS 0.9% 250 ML* 250 ML IVPB ONE (16:49)
[2016-07-11] MEDS ORDERED: Piperac/Tazob 3.375 gm in NS* 3.375 GM/100 ML BAG IVPB ONE (16:49)
[2016-07-11 16:54] LABS: Albumin 4.2 g/dL (3.2-5.2); BUN/Creatinine Ratio 22.4 (8-20); Calcium 9.4 mg/dL (8.6-10.3); EGFR African American 136.4 (>60); EGFR Non-African American 106.1 (>60); Globulin 3.1 g/dL (2-4); Potassium 4.1 mmol/L (3.5-5.0); Total Bilirubin 0.5 mg/dL (0.2-1.0); Total Protein 7.3 g/dL (6.4-8.9)
[2016-07-11 16:55] LABS: Troponin I 0.01 ng/mL (<0.04)
--- NOTE | 2016-07-11 17:33 | RAD ---
INDICATION: Change in mental status COMPARISON: July 02, 2016 TECHNIQUE: An AP portable view obtained at 1708 hours is submitted. FINDINGS: Bones/Soft Tissues: There are no acute bony findings. Cardiomediastinal: The cardiomediastinal silhouette is normal. Lungs: There are no infiltrates. Pleura: There are no pleural effusions. Other: None IMPRESSION: NO ACTIVE DISEASE.
[2016-07-11 19:19] LABS: Urine Bilirubin Negative (Negative); Urine Glucose 2+(150 mg/dL) (Negative); Urine Nitrite Negative (Negative)
[2016-07-11] MEDS ORDERED: Insulin REGULAR(*) 1 UNITS UNIT IV ONE (20:54)
[2016-07-11] MEDS ORDERED: Iodixanol* (CONTRAST) 320 MG/ML 100 ML SDV IV ONE (21:07)
--- NOTE | 2016-07-11 22:35 | RAD ---
INDICATION: Chest pain. Short of breath. Evaluate for pulmonary embolus. COMPARISON: Chest x-ray July 11, 2016; CTA chest March 23, 2016 TECHNIQUE: Axial source images were obtained from the thoracic inlet to the hemidiaphragms following administration of [address] angiographic technique was utilized. Coronal and sagittal reconstructed images were acquired. This examination is mildly limited due to patient body habitus. There is a stated weight of 300 pounds. CHEST FINDINGS: Neck/thyroid: The visualized neck to include the thyroid appear normal. Chest wall: There are no acute abnormalities of the bony thorax or chest wall. There is no supraclavicular, infraclavicular, or axillary lymphadenopathy. Lungs : There is minimal lingular airspace disease demonstrating interval improvement. The pulmonary interstitium appears normal. There are no endobronchial lesions. Cardiomediastinal structures: There are third and fourth order right-sided pulmonary emboli. Evaluation of fourth order in distal branches is very limited. The heart is normal in size. There is no pericardial effusion. There is no evidence of aortic aneurysm or dissection. There is no mediastinal or hilar adenopathy. The esophagus appears normal. Pleura : There are no pleural-based masses or effusions. Other: None. IMPRESSION: ACUTE RIGHT-SIDED PULMONARY EMBOLI
[2016-07-11 22:39] LABS: PCO2 Arterial 43 mmHg (35-45)
[2016-07-11] MEDS ORDERED: Heparin VIAL(*) 5000 UNITS/ML VIAL (FIVE THOUSAND) ONE (23:12)
[2016-07-11] MEDS ORDERED: Heparin DRIP 25,000 UNITS(*) 25,000 UNITS/500 ML BAG ONE (23:12)
--- NOTE | 2016-07-11 23:12 | ED ---
Carmen Costello Adam, scribed for Camilo Cruz MD on 07/11/16 at 1625 . Altered Mental Status - HPI Summary HPI Summary: A 56 y/o male presents to the ED sent from a intermediate for confusion. He states he was recently diagnosed with diabetes and reports one episode of diarrhea. Pt also states his glucose has been running high, and that somebody checks his glucose daily. He denies fever or headache. Pt. states he smokes 1 cigarette per day. - History Of Current Complaint Chief Complaint: EDAltMentalStatus Stated Complaint: AMS Time Seen by Provider: 07/11/16 16:06 Hx Obtained From: Patient Onset/Duration: Still Present Timing: Constant Severity Initially: Moderate Severity Currently: Moderate Character: Confusion Alleviating Factor(s): Nothing Associated Signs And Symptoms: Negative: Fever - Allergies/Home Medications Allergies/Adverse Reactions: Allergies Allergy/AdvReac Type Severity Reaction Status Date / Time Fish Allergy Allergy Unknown Verified 11/12/15 10:32 Reaction Details Haloperidol [From Haldol] Allergy Unknown Verified 11/12/15 10:32 Reaction Details PMH/Surg Hx/FS Hx/Imm Hx Endocrine/Hematology History: Reports: Hx Diabetes, Hx Thyroid Disease - hypo Cardiovascular History: Reports: Hx Hypercholesterolemia, Hx Hypertension - ON MEDS Denies: Other Cardiovascular Problems/Disorders Respiratory History: Reports: Hx Asthma, Hx Chronic Obstructive Pulmonary Disease (COPD), Hx Pneumonia Denies: Other Respiratory Problems/Disorders GI History: Denies: Other GI Disorders History: Reports: Hx Kidney Stones - 18 YRS AGO Musculoskeletal History: Reports: Hx Arthritis - BACK Sensory History: Reports: Hx Cataracts - PRITI, Hx Vision Problem - GLASSES Denies: Hx Hearing Aid Opthamlomology History: Reports: Hx Cataracts - PRITI, Hx Vision Problem - GLASSES Neurological History: Denies: Other Neuro Impairments/Disorders Psychiatric History: Reports: Hx Anxiety - ON MEDS, Hx Depression - MEDS, Hx Schizophrenia - Paranoid Denies: Hx Eating Disorder, Hx of Violent Episodes Against Others - Surgical History Surgery Procedure, Year, and Place: LEFT THUMB AGE 17 Hx Anesthesia Reactions: No Infectious Disease History: Denies: Traveled Outside the [place] in Last 30 Days - Family History Known Family History: Positive: Diabetes - Father, Other - negative hyperthermia , negative adverse reaction to anesthesia - Social History Alcohol Use: None Alcohol Amount: 12 beers a week Hx Substance Use: No Substance Use Type: Reports: None Substance Use Comment - Amount & Last Used: history marijuana and street drug use Hx Tobacco Use: Yes Smoking Status (MU): Light Every Day Tobacco Smoker Type: Cigarettes Amount Used/How Often: 2PPD Length of Time of Smoking/Using Tobacco: 30 years + Have You Smoked in the Last Year: Yes Review of Systems Positive: Skin Diaphoresis. Negative: Fever Eyes: Negative ENT: Negative Cardiovascular: Negative Respiratory: Negative Positive: Diarrhea - Once Genitourinary: Negative Musculoskeletal: Negative Skin: Negative Negative: Headache Psychological: Other - Confusion All Other Systems Reviewed And Are Negative: Yes Physical Exam - Summary Physical Exam Summary: General: Comfortable, pleasant, alert, good eye contact, diaphoretic HEENT: Dry mucosa Neck: soft, supple, no adenopathy, no edema Heart: S1, S2, HR 108, no murmurs, rubs, or gallops Lungs: Clear to auscultation, breathing comfortable, no wheezes or rales Abdominal: Soft, flat, nontender Extremities: 1+ pitting edema, no calf tenderness Neuro: Alert and oriented x 3 Psych: Logical, coherent Vital Signs On Initial Exam: Initial Vitals Temp Pulse Resp BP Pulse Ox 99.1 F 108 18 147/79 95 07/11/16 15:05 07/11/16 15:05 07/11/16 15:05 07/11/16 15:05 07/11/16 15:05 - [place] Coma Scale Coma Scale Total: 14 Diagnostics - Vital Signs Vital Signs Temp Pulse Resp BP Pulse Ox 07/11/16 15:05 99.1 F 108 18 147/79 95 - Laboratory Lab Results: Lab Results 07/11/16 07/11/16 07/11/16 Range/Units 16:16 16:32 16:32 WBC 20.9 H (3.5-10.8) 10^3/ul RBC 4.79 (4.0-5.4) 10^6/ul Hgb 14.2 (14.0-18.0) g/dl Hct 43 (42-52) % MCV 89 (80-94) fL MCH 30 (27-31) pg MCHC 33 (31-36) g/dl RDW 14 (10.5-15) % Plt Count 210 (150-450) 10^3/ul MPV 8 (7.4-10.4) um3 Neut % (Auto) 88.6 H (38-83) % Lymph % (Auto) 6.8 L (25-47) % [place] % (Auto) 4.1 (1-9) % Eos % (Auto) 0 (0-6) % Baso % (Auto) 0.5 (0-2) % Absolute Neuts (auto) 18.5 H (1.5-7.7) 10^3/ul Absolute Lymphs (auto) 1.4 (1.0-4.8) 10^3/ul Absolute Monos (auto) 0.9 H (0-0.8) 10^3/ul Absolute Eos (auto) 0 (0-0.6) 10^3/ul Absolute Basos (auto) 0.1 (0-0.2) 10^3/ul Absolute Nucleated RBC 0 10^3/ul Nucleated RBC % 0 INR (Anticoag Therapy) (0.89-1.11) APTT (26.0-36.3) seconds ABG pH (7.35-7.45) ABG pCO2 (35-45) mmHg ABG pO2 (80-100) mmHg ABG HCO3 (19-31) mmol/L ABG O2 Saturation (95-98) % ABG Base Excess (-2.0-2.0) Sodium 128 L (133-145) mmol/L Potassium 4.1 (3.5-5.0) mmol/L Chloride 92 L (101-111) mmol/L Carbon Dioxide 30 (22-32) mmol/L Anion Gap 6 (2-11) mmol/L BUN 17 (6-24) mg/dL Creatinine 0.76 (0.67-1.17) mg/dL Est GFR ( Amer) 136.4 (>60) Est GFR (Non-Af Amer) 106.1 (>60) BUN/Creatinine Ratio 22.4 H (8-20) Glucose 226 H (70-100) mg/dL POC Glucose (mg/dL) 240 H (74-106) mg/dL Lactic Acid (0.5-2.0) mmol/L Calcium 9.4 (8.6-10.3) mg/dL Total Bilirubin 0.50 (0.2-1.0) mg/dL AST 10 L (13-39) U/L ALT 18 (7-52) U/L Alkaline Phosphatase 60 (34-104) U/L Troponin I 0.01 (<0.04) ng/mL Total Protein 7.3 (6.4-8.9) g/dL Albumin 4.2 (3.2-5.2) g/dL Globulin 3.1 (2-4) g/dL Albumin/Globulin Ratio 1.4 (1-3) TSH (0.34-5.60) mcIU/mL Urine Color Urine Appearance Urine pH (5-9) Ur Specific [place] (1.010-1.030) Urine Protein (Negative) Urine Ketones (Negative) Urine Blood (Negative) Urine Nitrate (Negative) Urine Bilirubin (Negative) Urine Urobilinogen (Negative) Ur Leukocyte Esterase (Negative) Urine Glucose (Negative) Influenza A (Rapid) (Negative) Influenza B (Rapid) (Negative) 07/11/16 07/11/16 07/11/16 Range/Units 16:32 16:32 16:32 WBC (3.5-10.8) 10^3/ul RBC (4.0-5.4) 10^6/ul Hgb (14.0-18.0) g/dl Hct (42-52) % MCV (80-94) fL MCH (27-31) pg MCHC (31-36) g/dl RDW (10.5-15) % Plt Count (150-450) 10^3/ul MPV (7.4-10.4) um3 Neut % (Auto) (38-83) % Lymph % (Auto) (25-47) % [place]cle[place] % (Auto) (1-9) % Eos % (Auto) (0-6) % Baso % (Auto) (0-2) % Absolute Neuts (auto) (1.5-7.7) 10^3/ul Absolute Lymphs (auto) (1.0-4.8) 10^3/ul Absolute Monos (auto) (0-0.8) 10^3/ul Absolute Eos (auto) (0-0.6) 10^3/ul Absolute Basos (auto) (0-0.2) 10^3/ul Absolute Nucleated RBC 10^3/ul Nucleated RBC % INR (Anticoag Therapy) 0.94 (0.89-1.11) APTT 25.9 L (26.0-36.3) seconds ABG pH (7.35-7.45) ABG pCO2 (35-45) mmHg ABG pO2 (80-100) mmHg ABG HCO3 (19-31) mmol/L ABG O2 Saturation (95-98) % ABG Base Excess (-2.0-2.0) Sodium (133-145) mmol/L Potassium (3.5-5.0) mmol/L Chloride (101-111) mmol/L Carbon Dioxide (22-32) mmol/L Anion Gap (2-11) mmol/L BUN (6-24) mg/dL Creatinine (0.67-1.17) mg/dL Est GFR ( Amer) (>60) Est GFR (Non-Af Amer) (>60) BUN/Creatinine Ratio (8-20) Glucose (70-100) mg/dL POC Glucose (mg/dL) (74-106) mg/dL Lactic Acid 1.1 (0.5-2.0) mmol/L Calcium (8.6-10.3) mg/dL Total Bilirubin (0.2-1.0) mg/dL AST (13-39) U/L ALT (7-52) U/L Alkaline Phosphatase (34-104) U/L Troponin I (<0.04) ng/mL Total Protein (6.4-8.9) g/dL Albumin (3.2-5.2) g/dL Globulin (2-4) g/dL Albumin/Globulin Ratio (1-3) TSH 2.48 (0.34-5.60) mcIU/mL Urine Color Urine Appearance Urine pH (5-9) Ur Specific [place] (1.010-1.030) Urine Protein (Negative) Urine Ketones (Negative) Urine Blood (Negative) Urine Nitrate (Negative) Urine Bilirubin (Negative) Urine Urobilinogen (Negative) Ur Leukocyte Esterase (Negative) Urine Glucose (Negative) Influenza A (Rapid) (Negative) Influenza B (Rapid) (Negative) 07/11/16 07/11/16 07/11/16 Range/Units 19:10 19:11 22:30 WBC (3.5-10.8) 10^3/ul RBC (4.0-5.4) 10^6/ul Hgb (14.0-18.0) g/dl Hct (42-52) % MCV (80-94) fL MCH (27-31) pg MCHC (31-36) g/dl RDW (10.5-15) % Plt Count (150-450) 10^3/ul MPV (7.4-10.4) um3 Neut % (Auto) (38-83) % Lymph % (Auto) (25-47) % [place]cleod % (Auto) (1-9) % Eos % (Auto) (0-6) % Baso % (Auto) (0-2) % Absolute Neuts (auto) (1.5-7.7) 10^3/ul Absolute Lymphs (auto) (1.0-4.8) 10^3/ul Absolute Monos (auto) (0-0.8) 10^3/ul Absolute Eos (auto) (0-0.6) 10^3/ul Absolute Basos (auto) (0-0.2) 10^3/ul Absolute Nucleated RBC 10^3/ul Nucleated RBC % INR (Anticoag Therapy) (0.89-1.11) APTT (26.0-36.3) seconds ABG pH 7.42 (7.35-7.45) ABG pCO2 43 (35-45) mmHg ABG pO2 69 L (80-100) mmHg ABG HCO3 27.1 (19-31) mmol/L ABG O2 Saturation 96.5 (95-98) % ABG Base Excess 2.9 H (-2.0-2.0) Sodium (133-145) mmol/L Potassium (3.5-5.0) mmol/L Chloride (101-111) mmol/L Carbon Dioxide (22-32) mmol/L Anion Gap (2-11) mmol/L BUN (6-24) mg/dL Creatinine (0.67-1.17) mg/dL Est GFR ( Amer) (>60) Est GFR (Non-Af Amer) (>60) BUN/Creatinine Ratio (8-20) Glucose (70-100) mg/dL POC Glucose (mg/dL) (74-106) mg/dL Lactic Acid (0.5-2.0) mmol/L Calcium (8.6-10.3) mg/dL Total Bilirubin (0.2-1.0) mg/dL AST (13-39) U/L ALT (7-52) U/L Alkaline Phosphatase (34-104) U/L Troponin I (<0.04) ng/mL Total Protein (6.4-8.9) g/dL Albumin (3.2-5.2) g/dL Globulin (2-4) g/dL Albumin/Globulin Ratio (1-3) TSH (0.34-5.60) mcIU/mL Urine Color Yellow Urine Appearance Cloudy Urine pH 6.0 (5-9) Ur Specific [place] 1.020 (1.010-1.030) Urine Protein Negative (Negative) Urine Ketones Negative (Negative) Urine Blood Negative (Negative) Urine Nitrate Negative (Negative) Urine Bilirubin Negative (Negative) Urine Urobilinogen Negative (Negative) Ur Leukocyte Esterase Negative (Negative) Urine Glucose 2+(150 mg/dl) H (Negative) Influenza A (Rapid) Negative (Negative) Influenza B (Rapid) Negative (Negative) Result Diagrams: 07/11/16 16:32 07/11/16 16:32 Lab Statement: Any lab studies that have been ordered have been reviewed, and results considered in the medical decision making process. - Radiology CXR Xray Interpretation: No Acute Changes Radiology Interpretation Completed By: Radiologist - CT Chest/thorax CTA CT Interpretation: Positive (See Comments) - Acute right sided pulmonary emboli CT Interpretation Completed By: Radiologist - EKG 15:41 Cardiac Rate: Tachycardia - 108 EKG Rhythm: Sinus Tachycardia EKG Interpretation: No ST changes Re-Evaluation - Re-Evaluation First Eval Re-Evaluation Time: 19:22 Change: Unchanged Comment: Sitting at edge of bed, comfortable. We gave him something to eat. HR remains 105. We are awaiting a rectal temp and blood repeat blood glucose to make a disposition. He is on his second liter of fluid. Altered Mental Statu Course/Dx - Course Assessment/Plan: Med list reviewed from packet: no diabetes medication listed. Most recent admission reviewed: He presents with AMS and requesting MHE. He was found to have a pH of 7.28 with hypercapnia. Determined to have respiratory failure and placed on bipap. Hx of multiple pneumonias and COPD exacerbation admissions. Also had a cardiac catheterization. His med list from admission does have glucozide listed as well as other medicines listed that were not present in the packet he presented with. Despite all of our interventions, patient remains tachycardic, etiology unclear. Looking at old records, his HR is typically inthe 70's and 80's. Will pursue further workup for PE and obtain an ABG. New onset PE. Finally discovered why patient had tachycardia and was not improving. His assessment was difficult given his baseline mental status and that he was not able to provide us a history, such as SOB. He answered "yes " to almost all questions initially. - Diagnoses Discharge Diagnoses: Pulmonary embolism - Provider Notifications Discussed Care Of Patient With: Dr. Arora (Hospitalist, 17:00) - States he took care of pt himself and this is consistent with patient's baseline mental status. Dr. Shearer (Hospitalist, 22:50) - Accepts patient for admission - Critical Care Time Critical Care Time: 30-74 min - 60 minutes Discharge - Discharge Plan Condition: Guarded Disposition: ADMITTED TO [facility] The documentation as recorded by the Carmen lynne Adam accurately reflects the service I personally performed and the decisions made by me, Camilo Cruz MD.
[2016-07-11] MEDS: Heparin DRIP 25,000 UNITS(*) 25,000 UNITS/500 ML BAG IVPB SCH (23:25)
[2016-07-11] MEDS: Heparin VIAL(*) 5000 UNITS/ML VIAL (FIVE THOUSAND) IV SCH (23:49)
[2016-07-12] MEDS ORDERED: Albuterol 2.5 MG/3 ML NEB.SOL* (0.083%) INH PRN (00:17)
[2016-07-12] MEDS ORDERED: Morphine INJ* 2 MG/ML 1 ML CARPUJECT IV PRN (00:17)
[2016-07-12] MEDS ORDERED: CMCS: Melatonin (NF) 3 MG TAB PO PRN (00:17)
[2016-07-12] MEDS ORDERED: Acetaminophen TAB* 325 MG PO PRN (00:17)
--- NOTE | 2016-07-12 00:18 | HP ---
H&P (Free Text) History and Physical: PCP: Delmis Loyola MD Date/Time of Evaluation: 07/11/2016 2938 CC: confusion HPI: Mr Mccallum is a 56YO male HX schizophrenia & bipolar admitted to [facility] [place] 07/10/2016 discharged with primary diagnoses of hypercarbic respiratory failure & COPD. He is sent back in from [facility] for worsening confusion. Mr Mccallum is an unreliable historian and currently is oriented to person only. He cannot state where he is and states the President is Juan Pittman although he knows the year is 2016. He does relate some SOB, chest discomfort, and BLE pain, but cannot state onset or duration or otherwise characterize. He denies palpitations, F/C, sweats, or other issues. CTA chest is positive for PE. PMedHx, PSurgHx, SocHx, &FamHx: reviewed & unchanged from H&P dated 07/02/2016 Allergies Fish Allergy Allergy (Verified 11/12/15 10:32) Unknown Reaction Details Haloperidol [From Haldol] Allergy (Verified 11/12/15 10:32) Unknown Reaction Details Ambulatory Orders traZODone TAB* [Desyrel TAB*] 50 mg PO BEDTIME PRN 07/24/14 Simvastatin (NF) [Zocor (NF)] 40 mg PO BEDTIME 04/08/15 Levothyroxine TAB* [Synthorid 112 MCG TAB*] 112 mcg PO DAILY 03/14/16 Linagliptin (NF) [Tradjenta (NF)] 5 mg PO DAILY 03/14/16 Lisinopril TAB* [Prinivil TAB 10 MG*] 10 mg PO DAILY 03/14/16 glipiZIDE TAB* [Glucotrol TAB*] 5 mg PO BID AC 03/14/16 OLANzapine TAB* [Zyprexa TAB*] 20 mg PO BEDTIME 07/02/16 Paliperidone SUSTENNA* [Invega Sustenna*] 156 mg IM Q30D 07/02/16 Sertraline* [Zoloft*] 200 mg PO DAILY 07/02/16 Albuterol HFA INHALER* [Ventolin HFA Inhaler*] 1 puff INH Q4H PRN #1 mdi Mometasone/Formoter 200/5 MDI* [Dulera 200/5 MDI*] 2 puff INH BID #1 mdi predniSONE TAB* [Deltasone TAB*] 20 mg PO DAILY #5 tab 07/08/16 ROS: as above, otherwise reviewed and all were negative Constitutional: NAD, normally developed, morbidly obese white male vitals: Vital Signs Temp 36.8 C 07/11/16 17:27 Pulse 98 07/11/16 23:30 Resp 23 07/11/16 22:07 BP 151/76 07/11/16 23:30 Pulse Ox 92 07/11/16 23:30 Intake & Output 07/11/16 07/11/16 07/12/16 11:59 23:59 11:59 Intake Total 1999 Balance 1999 Weight 300 lb Intake: IV Fluids 1999 HEENM: atraumatic; sclera/conjunctiva: non-icteric/clear; hearing: clinically intact; oropharynx: clear, mucosa moist Neck: soft tissue: non-tender; thyroid: normal Pulmonary: clear to auscultation bilaterally, good aeration, no accessory muscle use CV: RR/RR, normal S1S2, no carotid bruit, no jugular venous distention, 2+ B DP/ PT, no edema Abdominal: soft, non-distended, non-tender, no rebound/guarding/rigidity, normoactive bowel sounds, no hepatosplenomegaly or masses, no costovertebral angle tenderness Musculoskeletal: general: grossly intact Integumental: normal appearance and texture Psychiatric orientation: AA&O to person only affect: calm mood: cooperative eye contact: fair to good content: unreliable responses: timely insight: poor Testing: Lab Results 07/11/16 07/11/16 07/11/16 Range/Units 16:16 16:32 16:32 WBC 20.9 H (3.5-10.8) 10^3/ul RBC 4.79 (4.0-5.4) 10^6/ul Hgb 14.2 (14.0-18.0) g/dl Hct 43 (42-52) % MCV 89 (80-94) fL MCH 30 (27-31) pg MCHC 33 (31-36) g/dl RDW 14 (10.5-15) % Plt Count 210 (150-450) 10^3/ul MPV 8 (7.4-10.4) um3 Neut % (Auto) 88.6 H (38-83) % Lymph % (Auto) 6.8 L (25-47) % [place] % (Auto) 4.1 (1-9) % Eos % (Auto) 0 (0-6) % Baso % (Auto) 0.5 (0-2) % Absolute Neuts (auto) 18.5 H (1.5-7.7) 10^3/ul Absolute Lymphs (auto) 1.4 (1.0-4.8) 10^3/ul Absolute Monos (auto) 0.9 H (0-0.8) 10^3/ul Absolute Eos (auto) 0 (0-0.6) 10^3/ul Absolute Basos (auto) 0.1 (0-0.2) 10^3/ul Absolute Nucleated RBC 0 10^3/ul Nucleated RBC % 0 INR (Anticoag Therapy) (0.89-1.11) APTT (26.0-36.3) seconds ABG pH (7.35-7.45) ABG pCO2 (35-45) mmHg ABG pO2 (80-100) mmHg ABG HCO3 (19-31) mmol/L ABG O2 Saturation (95-98) % ABG Base Excess (-2.0-2.0) Sodium 128 L (133-145) mmol/L Potassium 4.1 (3.5-5.0) mmol/L Chloride 92 L (101-111) mmol/L Carbon Dioxide 30 (22-32) mmol/L Anion Gap 6 (2-11) mmol/L BUN 17 (6-24) mg/dL Creatinine 0.76 (0.67-1.17) mg/dL Est GFR ( Amer) 136.4 (>60) Est GFR (Non-Af Amer) 106.1 (>60) BUN/Creatinine Ratio 22.4 H (8-20) Glucose 226 H (70-100) mg/dL POC Glucose (mg/dL) 240 H (74-106) mg/dL Lactic Acid (0.5-2.0) mmol/L Calcium 9.4 (8.6-10.3) mg/dL Total Bilirubin 0.50 (0.2-1.0) mg/dL AST 10 L (13-39) U/L ALT 18 (7-52) U/L Alkaline Phosphatase 60 (34-104) U/L Troponin I 0.01 (<0.04) ng/mL Total Protein 7.3 (6.4-8.9) g/dL Albumin 4.2 (3.2-5.2) g/dL Globulin 3.1 (2-4) g/dL Albumin/Globulin Ratio 1.4 (1-3) TSH (0.34-5.60) mcIU/mL Urine Color Urine Appearance Urine pH (5-9) Ur Specific [place] (1.010-1.030) Urine Protein (Negative) Urine Ketones (Negative) Urine Blood (Negative) Urine Nitrate (Negative) Urine Bilirubin (Negative) Urine Urobilinogen (Negative) Ur Leukocyte Esterase (Negative) Urine Glucose (Negative) Influenza A (Rapid) (Negative) Influenza B (Rapid) (Negative) 07/11/16 07/11/16 07/11/16 Range/Units 16:32 16:32 16:32 WBC (3.5-10.8) 10^3/ul RBC (4.0-5.4) 10^6/ul Hgb (14.0-18.0) g/dl Hct (42-52) % MCV (80-94) fL MCH (27-31) pg MCHC (31-36) g/dl RDW (10.5-15) % Plt Count (150-450) 10^3/ul MPV (7.4-10.4) um3 Neut % (Auto) (38-83) % Lymph % (Auto) (25-47) % [place] % (Auto) (1-9) % Eos % (Auto) (0-6) % Baso % (Auto) (0-2) % Absolute Neuts (auto) (1.5-7.7) 10^3/ul Absolute Lymphs (auto) (1.0-4.8) 10^3/ul Absolute Monos (auto) (0-0.8) 10^3/ul Absolute Eos (auto) (0-0.6) 10^3/ul Absolute Basos (auto) (0-0.2) 10^3/ul Absolute Nucleated RBC 10^3/ul Nucleated RBC % INR (Anticoag Therapy) 0.94 (0.89-1.11) APTT 25.9 L (26.0-36.3) seconds ABG pH (7.35-7.45) ABG pCO2 (35-45) mmHg ABG pO2 (80-100) mmHg ABG HCO3 (19-31) mmol/L ABG O2 Saturation (95-98) % ABG Base Excess (-2.0-2.0) Sodium (133-145) mmol/L Potassium (3.5-5.0) mmol/L Chloride (101-111) mmol/L Carbon Dioxide (22-32) mmol/L Anion Gap (2-11) mmol/L BUN (6-24) mg/dL Creatinine (0.67-1.17) mg/dL Est GFR ( Amer) (>60) Est GFR (Non-Af Amer) (>60) BUN/Creatinine Ratio (8-20) Glucose (70-100) mg/dL POC Glucose (mg/dL) (74-106) mg/dL Lactic Acid 1.1 (0.5-2.0) mmol/L Calcium (8.6-10.3) mg/dL Total Bilirubin (0.2-1.0) mg/dL AST (13-39) U/L ALT (7-52) U/L Alkaline Phosphatase (34-104) U/L Troponin I (<0.04) ng/mL Total Protein (6.4-8.9) g/dL Albumin (3.2-5.2) g/dL Globulin (2-4) g/dL Albumin/Globulin Ratio (1-3) TSH 2.48 (0.34-5.60) mcIU/mL Urine Color Urine Appearance Urine pH (5-9) Ur Specific [place] (1.010-1.030) Urine Protein (Negative) Urine Ketones (Negative) Urine Blood (Negative) Urine Nitrate (Negative) Urine Bilirubin (Negative) Urine Urobilinogen (Negative) Ur Leukocyte Esterase (Negative) Urine Glucose (Negative) Influenza A (Rapid) (Negative) Influenza B (Rapid) (Negative) 07/11/16 07/11/16 07/11/16 Range/Units 19:10 19:11 22:30 WBC (3.5-10.8) 10^3/ul RBC (4.0-5.4) 10^6/ul Hgb (14.0-18.0) g/dl Hct (42-52) % MCV (80-94) fL MCH (27-31) pg MCHC (31-36) g/dl RDW (10.5-15) % Plt Count (150-450) 10^3/ul MPV (7.4-10.4) um3 Neut % (Auto) (38-83) % Lymph % (Auto) (25-47) % [place] % (Auto) (1-9) % Eos % (Auto) (0-6) % Baso % (Auto) (0-2) % Absolute Neuts (auto) (1.5-7.7) 10^3/ul Absolute Lymphs (auto) (1.0-4.8) 10^3/ul Absolute Monos (auto) (0-0.8) 10^3/ul Absolute Eos (auto) (0-0.6) 10^3/ul Absolute Basos (auto) (0-0.2) 10^3/ul Absolute Nucleated RBC 10^3/ul Nucleated RBC % INR (Anticoag Therapy) (0.89-1.11) APTT (26.0-36.3) seconds ABG pH 7.42 (7.35-7.45) ABG pCO2 43 (35-45) mmHg ABG pO2 69 L (80-100) mmHg ABG HCO3 27.1 (19-31) mmol/L ABG O2 Saturation 96.5 (95-98) % ABG Base Excess 2.9 H (-2.0-2.0) Sodium (133-145) mmol/L Potassium (3.5-5.0) mmol/L Chloride (101-111) mmol/L Carbon Dioxide (22-32) mmol/L Anion Gap (2-11) mmol/L BUN (6-24) mg/dL Creatinine (0.67-1.17) mg/dL Est GFR ( Amer) (>60) Est GFR (Non-Af Amer) (>60) BUN/Creatinine Ratio (8-20) Glucose (70-100) mg/dL POC Glucose (mg/dL) (74-106) mg/dL Lactic Acid (0.5-2.0) mmol/L Calcium (8.6-10.3) mg/dL Total Bilirubin (0.2-1.0) mg/dL AST (13-39) U/L ALT (7-52) U/L Alkaline Phosphatase (34-104) U/L Troponin I (<0.04) ng/mL Total Protein (6.4-8.9) g/dL Albumin (3.2-5.2) g/dL Globulin (2-4) g/dL Albumin/Globulin Ratio (1-3) TSH (0.34-5.60) mcIU/mL Urine Color Yellow Urine Appearance Cloudy Urine pH 6.0 (5-9) Ur Specific [place] 1.020 (1.010-1.030) Urine Protein Negative (Negative) Urine Ketones Negative (Negative) Urine Blood Negative (Negative) Urine Nitrate Negative (Negative) Urine Bilirubin Negative (Negative) Urine Urobilinogen Negative (Negative) Ur Leukocyte Esterase Negative (Negative) Urine Glucose 2+(150 mg/dl) H (Negative) Influenza A (Rapid) Negative (Negative) Influenza B (Rapid) Negative (Negative) ECG, personally reviewed: sinus tachycardia rate 108 with new small Q-waves in II & III with flattening of the ST-T in III CXR, personally reviewed: IMPRESSION: NO ACTIVE DISEASE. CTA chest, personally reviewed: IMPRESSION: ACUTE RIGHT-SIDED PULMONARY EMBOLI Impression: 56M HX schizophrenia & bipolar disorder presents with an acute R pulmonary embolus DIAGNOSIS & PLAN Primary R pulmonary embolus : IVFs : heparin GTT : telemetry : supplemental oxygen : check US BLE to evaluate further clot burden & source : supportive care Secondary schizophrenia/bipolar disorder : continue olanzapine COPD/asthma : albuterol nebs : mometasone/formoterol : tiotropium : continue PO prednisone : incentive spirometry depression : continue sertraline DM2 : basal/bolus/correctional protocol : hold linagliptin & glipizide HTN : continue lisinopril HLD : continue simvastatin hypothyroidism : continue levothyroxine tobacco use disorder : smoking cessation advised, low motivation Admission Rational: CDU observation for initiation of anticoagulation for R- sided PE DVTp: heparin GTT Code Status: full HCP: uncertain
[2016-07-12] MEDS ORDERED: oxyCODONE TAB* 5 MG TAB PO PRN (00:19)
[2016-07-12] MEDS ORDERED: Ondansetron INJ* 2 MG/ML VIAL IV PRN (00:19)
[2016-07-12] MEDS ORDERED: traZODone TAB* 50 MG TAB PO PRN (00:36)
[2016-07-12] MEDS ORDERED: Paliperidone SUSTENNA* 156 MG/1 ML IM SCH (01:00)
[2016-07-12] MEDS: Omeprazole CAP* 20 MG PO SCH (05:13)
[2016-07-12] MEDS: Levothyroxine TAB* 112 MCG TAB PO SCH (05:13)
[2016-07-12 05:18] LABS: Hematocrit 39 % (42-52); Hemoglobin 13.1 g/dl (14.0-18.0); Mean Corpuscular HGB Conc 34 g/dl (31-36); Mean Corpuscular Hemoglobin 30 pg (27-31); Mean Corpuscular Volume 89 fL (80-94); Mean Platelet Volume 8 um3 (7.4-10.4); Red Blood Count 4.39 10^6/ul (4.0-5.4); Red Cell Distribution Width 14 % (10.5-15); White Blood Count 14.5 10^3/ul (3.5-10.8)
[2016-07-12 05:32] LABS: BUN/Creatinine Ratio 18.2 (8-20); Calcium 8.7 mg/dL (8.6-10.3); EGFR African American 160.6 (>60); EGFR Non-African American 124.9 (>60); Potassium 3.8 mmol/L (3.5-5.0)
--- NOTE | 2016-07-12 08:13 | RAD ---
Indication: Pulmonary embolus. Duplex Doppler sonography of the deep venous system of both lower extremities was performed. Bilaterally the common femoral veins, proximal greater saphenous veins, proximal deep femoral veins, femoral veins, popliteal veins, posterior tibial veins and peroneal veins appear patent and compressible. IMPRESSION: NO EVIDENCE OF DEEP VENOUS THROMBOSIS OF EITHER LOWER EXTREMITY IS PRESENT.
[2016-07-12] MEDS: Mometasone/Formoter 200/5 MDI INH SCH ×2 (08:33→20:21)
[2016-07-12] MEDS: Heparin VIAL(*) 5000 UNITS/ML VIAL (FIVE THOUSAND) IV SCH ×2 (08:36→18:07)
[2016-07-12] MEDS: Insulin LISPRO* 1 UNITS UNIT SUBCUT SCH ×7 (08:39→22:47)
[2016-07-12] MEDS: Lisinopril TAB* 10 MG PO SCH (08:40)
[2016-07-12] MEDS: Sertraline* 100 MG TAB PO SCH (08:41)
[2016-07-12] MEDS ORDERED: predniSONE TAB* 20 MG PO SCH (09:00)
[2016-07-12] MEDS: Heparin DRIP 25,000 UNITS(*) 25,000 UNITS/500 ML BAG IVPB SCH (13:26)
[2016-07-12] MEDS ORDERED: Warfarin TAB(*) 7.5 MG PO ONE (18:15)
--- NOTE | 2016-07-12 18:18 | PN ---
Subjective Date of Service: 07/12/16 Interval History: Seen and examined Still with bizarre thinking. Tells me his body hurts like "the hell of damnation " and he will "never get out of here but I don't know where here is." Difficult to assess ROS Objective Active Medications: Acetaminophen (Tylenol Tab*) 650 mg PO Q6H PRN PRN Reason: FEVER/PAIN Albuterol (Ventolin 2.5 Mg/3 Ml Neb.Manisha*) 2.5 mg INH Q2H PRN PRN Reason: SOB/WHEEZING Atorvastatin Calcium (Lipitor*) 20 mg PO BEDTIME [facility] Heparin Sodium (Porcine) (Heparin Vial(*)) 0 units IV .PER PROTOCOL NORA PRN Reason: Protocol Last Admin: 07/12/16 18:07 Dose: 3,900 units Heparin Sodium/Dextrose (Heparin Drip 25,000 Units(*)) 25,000 units in 500 mls @ 0 mls/hr IVPB .PER RATE NORA; Per Protocol PRN Reason: Protocol Last Admin: 07/12/16 13:26 Dose: 39 mls/hr Insulin Glargine (Lantus(*)) 33 units SUBCUT 2100 [facility] Stop: 07/13/16 20:00 Insulin Human Lispro (Humalog*) 0 units SUBCUT AC NORA PRN Reason: Protocol Last Admin: 07/12/16 18:09 Dose: 4 units Insulin Human Lispro (Humalog*) 0 units SUBCUT ACHS [facility] PRN Reason: Protocol Last Admin: 07/12/16 18:09 Dose: 6 units Levothyroxine Sodium (Synthroid Tab*) 112 mcg PO 0600 [facility] Last Admin: 07/12/16 05:13 Dose: 112 mcg Lisinopril (Prinivil Tab*) 10 mg PO DAILY [facility] Last Admin: 07/12/16 08:40 Dose: 10 mg Melatonin (Melatonin (Nf)) 3 mg PO BEDTIME PRN; Protocol PRN Reason: Sleep Mometasone Furoate/Formoterol Fumar (Dulera 200/5 Mdi*) 2 puff INH BID [facility] Last Admin: 07/12/16 08:33 Dose: 2 puff Morphine Sulfate (Morphine Inj (Syringe)*) 2 mg IV Q4H PRN PRN Reason: PAIN - MILD Olanzapine (Zyprexa Tab*) 20 mg PO BEDTIME [facility] Omeprazole (Prilosec Cap*) 20 mg PO DAILY@0600 [facility] Last Admin: 07/12/16 05:13 Dose: 20 mg Ondansetron HCl (Zofran Inj*) 4 mg IV Q6H PRN PRN Reason: NAUSEA Oxycodone HCl (Roxycodone Tab*) 5 mg PO Q4H PRN PRN Reason: PAIN Paliperidone Palmitate (Invega Sustenna*) 156 mg IM Q30D [facility] Last Admin: 07/12/16 03:55 Dose: Not Given Sertraline HCl (Zoloft*) 200 mg PO DAILY [facility] Last Admin: 07/12/16 08:41 Dose: 200 mg Trazodone HCl (Desyrel Tab*) 50 mg PO BEDTIME PRN PRN Reason: SLEEP Warfarin Sodium (Coumadin Tab(*)) 7.5 mg PO ONCE ONE PRN Reason: Protocol Stop: 07/12/16 19:01 Vital Signs 07/12/16 07/12/16 07/12/16 00:30 01:00 01:30 Temperature Pulse Rate 100 99 102 Respiratory 24 26 21 Rate Blood Pressure 149/78 157/75 159/93 (mmHg) O2 Sat by Pulse 93 92 92 Oximetry 07/12/16 07/12/16 07/12/16 02:00 02:30 02:43 Temperature 98.3 F Pulse Rate 96 95 Respiratory 22 22 Rate Blood Pressure 173/97 162/98 (mmHg) O2 Sat by Pulse 91 91 Oximetry 07/12/16 07/12/16 07/12/16 03:59 07:29 08:37 Temperature 98.4 F 98.6 F Pulse Rate 97 87 85 Respiratory 20 16 14 Rate Blood Pressure 146/78 129/74 (mmHg) O2 Sat by Pulse 93 95 95 Oximetry 07/12/16 07/12/16 07/12/16 11:47 15:32 16:44 Temperature 98.8 F 98.5 F Pulse Rate 88 87 Respiratory 16 17 Rate Blood Pressure 126/76 119/68 (mmHg) O2 Sat by Pulse 94 93 94 Oximetry Oxygen Devices in Use Now: None Appearance: obese, NAD Eyes: No Scleral Icterus, PERRLA Ears/Nose/Mouth/Throat: NL Teeth, Lips, Gums, Clear Oropharnyx, Mucous Membranes Moist Neck: NL Appearance and Movements; NL JVP, Trachea Midline Respiratory: Symmetrical Chest Expansion and Respiratory Effort, Clear to Auscultation Cardiovascular: NL Sounds; No Murmurs; No JVD, RRR Abdominal: NL Sounds; No Tenderness; No Distention, No Hepatosplenomegaly Skin: No Rash or Ulcers Neurological: - - AOx2 to self and knows he is in hospital Result Diagrams: 07/12/16 04:44 07/12/16 04:59 Additional Lab and Data: Lab Results 07/11/16 07/11/16 07/11/16 Range/Units 16:16 16:32 16:32 WBC 20.9 H (3.5-10.8) 10^3/ul RBC 4.79 (4.0-5.4) 10^6/ul Hgb 14.2 (14.0-18.0) g/dl Hct 43 (42-52) % MCV 89 (80-94) fL MCH 30 (27-31) pg MCHC 33 (31-36) g/dl RDW 14 (10.5-15) % Plt Count 210 (150-450) 10^3/ul MPV 8 (7.4-10.4) um3 Neut % (Auto) 88.6 H (38-83) % Lymph % (Auto) 6.8 L (25-47) % [place] % (Auto) 4.1 (1-9) % Eos % (Auto) 0 (0-6) % Baso % (Auto) 0.5 (0-2) % Absolute Neuts (auto) 18.5 H (1.5-7.7) 10^3/ul Absolute Lymphs (auto) 1.4 (1.0-4.8) 10^3/ul Absolute Monos (auto) 0.9 H (0-0.8) 10^3/ul Absolute Eos (auto) 0 (0-0.6) 10^3/ul Absolute Basos (auto) 0.1 (0-0.2) 10^3/ul Absolute Nucleated RBC 0 10^3/ul Nucleated RBC % 0 INR (Anticoag Therapy) (0.89-1.11) APTT (26.0-36.3) seconds ABG pH (7.35-7.45) ABG pCO2 (35-45) mmHg ABG pO2 (80-100) mmHg ABG HCO3 (19-31) mmol/L ABG O2 Saturation (95-98) % ABG Base Excess (-2.0-2.0) Sodium 128 L (133-145) mmol/L Potassium 4.1 (3.5-5.0) mmol/L Chloride 92 L (101-111) mmol/L Carbon Dioxide 30 (22-32) mmol/L Anion Gap 6 (2-11) mmol/L BUN 17 (6-24) mg/dL Creatinine 0.76 (0.67-1.17) mg/dL Est GFR ( Amer) 136.4 (>60) Est GFR (Non-Af Amer) 106.1 (>60) BUN/Creatinine Ratio 22.4 H (8-20) Glucose 226 H (70-100) mg/dL POC Glucose (mg/dL) 240 H (74-106) mg/dL Lactic Acid (0.5-2.0) mmol/L Calcium 9.4 (8.6-10.3) mg/dL Total Bilirubin 0.50 (0.2-1.0) mg/dL AST 10 L (13-39) U/L ALT 18 (7-52) U/L Alkaline Phosphatase 60 (34-104) U/L Troponin I 0.01 (<0.04) ng/mL Total Protein 7.3 (6.4-8.9) g/dL Albumin 4.2 (3.2-5.2) g/dL Globulin 3.1 (2-4) g/dL Albumin/Globulin Ratio 1.4 (1-3) TSH (0.34-5.60) mcIU/mL Urine Color Urine Appearance Urine pH (5-9) Ur Specific [place] (1.010-1.030) Urine Protein (Negative) Urine Ketones (Negative) Urine Blood (Negative) Urine Nitrate (Negative) Urine Bilirubin (Negative) Urine Urobilinogen (Negative) Ur Leukocyte Esterase (Negative) Urine Glucose (Negative) Influenza A (Rapid) (Negative) Influenza B (Rapid) (Negative) 07/11/16 07/11/16 07/11/16 Range/Units 16:32 16:32 16:32 WBC (3.5-10.8) 10^3/ul RBC (4.0-5.4) 10^6/ul Hgb (14.0-18.0) g/dl Hct (42-52) % MCV (80-94) fL MCH (27-31) pg MCHC (31-36) g/dl RDW (10.5-15) % Plt Count (150-450) 10^3/ul MPV (7.4-10.4) um3 Neut % (Auto) (38-83) % Lymph % (Auto) (25-47) % [place] % (Auto) (1-9) % Eos % (Auto) (0-6) % Baso % (Auto) (0-2) % Absolute Neuts (auto) (1.5-7.7) 10^3/ul Absolute Lymphs (auto) (1.0-4.8) 10^3/ul Absolute Monos (auto) (0-0.8) 10^3/ul Absolute Eos (auto) (0-0.6) 10^3/ul Absolute Basos (auto) (0-0.2) 10^3/ul Absolute Nucleated RBC 10^3/ul Nucleated RBC % INR (Anticoag Therapy) 0.94 (0.89-1.11) APTT 25.9 L (26.0-36.3) seconds ABG pH (7.35-7.45) ABG pCO2 (35-45) mmHg ABG pO2 (80-100) mmHg ABG HCO3 (19-31) mmol/L ABG O2 Saturation (95-98) % ABG Base Excess (-2.0-2.0) Sodium (133-145) mmol/L Potassium (3.5-5.0) mmol/L Chloride (101-111) mmol/L Carbon Dioxide (22-32) mmol/L Anion Gap (2-11) mmol/L BUN (6-24) mg/dL Creatinine (0.67-1.17) mg/dL Est GFR ( Amer) (>60) Est GFR (Non-Af Amer) (>60) BUN/Creatinine Ratio (8-20) Glucose (70-100) mg/dL POC Glucose (mg/dL) (74-106) mg/dL Lactic Acid 1.1 (0.5-2.0) mmol/L Calcium (8.6-10.3) mg/dL Total Bilirubin (0.2-1.0) mg/dL AST (13-39) U/L ALT (7-52) U/L Alkaline Phosphatase (34-104) U/L Troponin I (<0.04) ng/mL Total Protein (6.4-8.9) g/dL Albumin (3.2-5.2) g/dL Globulin (2-4) g/dL Albumin/Globulin Ratio (1-3) TSH 2.48 (0.34-5.60) mcIU/mL Urine Color Urine Appearance Urine pH (5-9) Ur Specific [place] (1.010-1.030) Urine Protein (Negative) Urine Ketones (Negative) Urine Blood (Negative) Urine Nitrate (Negative) Urine Bilirubin (Negative) Urine Urobilinogen (Negative) Ur Leukocyte Esterase (Negative) Urine Glucose (Negative) Influenza A (Rapid) (Negative) Influenza B (Rapid) (Negative) 07/11/16 07/11/16 07/11/16 Range/Units 19:10 19:11 22:30 WBC (3.5-10.8) 10^3/ul RBC (4.0-5.4) 10^6/ul Hgb (14.0-18.0) g/dl Hct (42-52) % MCV (80-94) fL MCH (27-31) pg MCHC (31-36) g/dl RDW (10.5-15) % Plt Count (150-450) 10^3/ul MPV (7.4-10.4) um3 Neut % (Auto) (38-83) % Lymph % (Auto) (25-47) % [place] % (Auto) (1-9) % Eos % (Auto) (0-6) % Baso % (Auto) (0-2) % Absolute Neuts (auto) (1.5-7.7) 10^3/ul Absolute Lymphs (auto) (1.0-4.8) 10^3/ul Absolute Monos (auto) (0-0.8) 10^3/ul Absolute Eos (auto) (0-0.6) 10^3/ul Absolute Basos (auto) (0-0.2) 10^3/ul Absolute Nucleated RBC 10^3/ul Nucleated RBC % INR (Anticoag Therapy) (0.89-1.11) APTT (26.0-36.3) seconds ABG pH 7.42 (7.35-7.45) ABG pCO2 43 (35-45) mmHg ABG pO2 69 L (80-100) mmHg ABG HCO3 27.1 (19-31) mmol/L ABG O2 Saturation 96.5 (95-98) % ABG Base Excess 2.9 H (-2.0-2.0) Sodium (133-145) mmol/L Potassium (3.5-5.0) mmol/L Chloride (101-111) mmol/L Carbon Dioxide (22-32) mmol/L Anion Gap (2-11) mmol/L BUN (6-24) mg/dL Creatinine (0.67-1.17) mg/dL Est GFR ( Amer) (>60) Est GFR (Non-Af Amer) (>60) BUN/Creatinine Ratio (8-20) Glucose (70-100) mg/dL POC Glucose (mg/dL) (74-106) mg/dL Lactic Acid (0.5-2.0) mmol/L Calcium (8.6-10.3) mg/dL Total Bilirubin (0.2-1.0) mg/dL AST (13-39) U/L ALT (7-52) U/L Alkaline Phosphatase (34-104) U/L Troponin I (<0.04) ng/mL Total Protein (6.4-8.9) g/dL Albumin (3.2-5.2) g/dL Globulin (2-4) g/dL Albumin/Globulin Ratio (1-3) TSH (0.34-5.60) mcIU/mL Urine Color Yellow Urine Appearance Cloudy Urine pH 6.0 (5-9) Ur Specific [place] 1.020 (1.010-1.030) Urine Protein Negative (Negative) Urine Ketones Negative (Negative) Urine Blood Negative (Negative) Urine Nitrate Negative (Negative) Urine Bilirubin Negative (Negative) Urine Urobilinogen Negative (Negative) Ur Leukocyte Esterase Negative (Negative) Urine Glucose 2+(150 mg/dl) H (Negative) Influenza A (Rapid) Negative (Negative) Influenza B (Rapid) Negative (Negative) Assess/Plan/Problems-Billing Assessment: 56 yo M h/o schizophrenia with recent admission for respiratory failure thought in setting of COPD exacerbation returning with AMS found with pulmonary embolism on CTA performed 2/2 resting tachycardia in ED - Patient Problems (1) Pulmonary embolism Comment: I am unsure the best anticoagulant to use for this patient . Because he needs help remembering medications I am hesistant to use a NOAC as this will leave him vulnerable with missed doses. Coumadin will afford an ability to monitor compliance with INRs. (2) Altered mental status Status: Resolved Comment: I spoke to Dr. Fajardo today and patient's current mental status does not seem like baseline. At baseline he can carry on a conversation, may talk about friends or girls he likes. Here he is difficult to engage but not frankly disorganized or psychotic. Possible that PE contributing to decomensation. He received invega at scheduled time yesterday. A repeat psych consult may be useful if he remains off baseline. Dr. Fajardo is asking patient's case resolution specialist to come in and help evaluate where his mental status is compared to baseline. (3) COPD (chronic obstructive pulmonary disease) Comment: Exacerbation resolved. Stopped steroids. dulera (4) DM type 2 (diabetes mellitus, type 2) Comment: Lantus and lispro (5) DVT prophylaxis Comment: SQ heparin
[2016-07-12] MEDS ORDERED: OLANzapine TAB* 10 MG PO SCH (21:00)
[2016-07-12] MEDS ORDERED: Atorvastatin* 20 MG TAB PO SCH (21:00)
[2016-07-12] MEDS ORDERED: Insulin GLARGINE(*) 1 UNITS UNIT SUBCUT SCH (21:00)
[2016-07-13] MEDS: Heparin DRIP 25,000 UNITS(*) 25,000 UNITS/500 ML BAG IVPB SCH (01:32)
[2016-07-13] MEDS: Levothyroxine TAB* 112 MCG TAB PO SCH (06:02)
[2016-07-13] MEDS: Omeprazole CAP* 20 MG PO SCH (06:02)
[2016-07-13 06:08] LABS: Hematocrit 39 % (42-52); Hemoglobin 12.8 g/dl (14.0-18.0); Mean Corpuscular HGB Conc 33 g/dl (31-36); Mean Corpuscular Hemoglobin 30 pg (27-31); Mean Corpuscular Volume 90 fL (80-94); Mean Platelet Volume 8 um3 (7.4-10.4); Red Blood Count 4.31 10^6/ul (4.0-5.4); Red Cell Distribution Width 14 % (10.5-15); White Blood Count 14.4 10^3/ul (3.5-10.8)
[2016-07-13 06:30] LABS: BUN/Creatinine Ratio 17.6 (8-20); Calcium 9.1 mg/dL (8.6-10.3); EGFR African American 155.1 (>60); EGFR Non-African American 120.6 (>60)
[2016-07-13] MEDS: Lisinopril TAB* 10 MG PO SCH (08:49)
[2016-07-13] MEDS: Sertraline* 100 MG TAB PO SCH (08:49)
[2016-07-13] MEDS: Insulin LISPRO* 1 UNITS UNIT SUBCUT SCH ×4 (08:50→13:11)
[2016-07-13] MEDS: Mometasone/Formoter 200/5 MDI INH SCH (09:06)
--- NOTE | 2016-07-13 11:37 | PN ---
Subjective Date of Service: 07/13/16 Interval History: Pt is feeling well. He states he has some chest congestion and is coughing up some sputum. He denies any chest pain. No SOB. Objective Active Medications: Acetaminophen (Tylenol Tab*) 650 mg PO Q6H PRN PRN Reason: FEVER/PAIN Albuterol (Ventolin 2.5 Mg/3 Ml Neb.Manisha*) 2.5 mg INH Q2H PRN PRN Reason: SOB/WHEEZING Atorvastatin Calcium (Lipitor*) 20 mg PO BEDTIME [facility] Last Admin: 07/12/16 22:08 Dose: 20 mg Heparin Sodium (Porcine) (Heparin Vial(*)) 0 units IV .PER PROTOCOL NORA PRN Reason: Protocol Last Admin: 07/12/16 18:07 Dose: 3,900 units Heparin Sodium/Dextrose (Heparin Drip 25,000 Units(*)) 25,000 units in 500 mls @ 0 mls/hr IVPB .PER RATE NORA; Per Protocol PRN Reason: Protocol Last Admin: 07/13/16 01:32 Dose: 43 mls/hr Insulin Glargine (Lantus(*)) 33 units SUBCUT 2100 [facility] Stop: 07/13/16 20:00 Last Admin: 07/12/16 22:08 Dose: 33 units Insulin Human Lispro (Humalog*) 0 units SUBCUT AC [facility] PRN Reason: Protocol Last Admin: 07/13/16 08:50 Dose: 7 units Insulin Human Lispro (Humalog*) 0 units SUBCUT ACHS [facility] PRN Reason: Protocol Last Admin: 07/13/16 08:51 Dose: 3 units Levothyroxine Sodium (Synthroid Tab*) 112 mcg PO 0600 [facility] Last Admin: 07/13/16 06:02 Dose: 112 mcg Lisinopril (Prinivil Tab*) 10 mg PO DAILY [facility] Last Admin: 07/13/16 08:49 Dose: 10 mg Melatonin (Melatonin (Nf)) 3 mg PO BEDTIME PRN; Protocol PRN Reason: Sleep Mometasone Furoate/Formoterol Fumar (Dulera 200/5 Mdi*) 2 puff INH BID [facility] Last Admin: 07/13/16 09:06 Dose: 2 puff Morphine Sulfate (Morphine Inj (Syringe)*) 2 mg IV Q4H PRN PRN Reason: PAIN - MILD Olanzapine (Zyprexa Tab*) 20 mg PO BEDTIME [facility] Last Admin: 07/12/16 22:08 Dose: 20 mg Omeprazole (Prilosec Cap*) 20 mg PO DAILY@0600 [facility] Last Admin: 07/13/16 06:02 Dose: 20 mg Ondansetron HCl (Zofran Inj*) 4 mg IV Q6H PRN PRN Reason: NAUSEA Oxycodone HCl (Roxycodone Tab*) 5 mg PO Q4H PRN PRN Reason: PAIN Paliperidone Palmitate (Invega Sustenna*) 156 mg IM Q30D [facility] Last Admin: 07/12/16 03:55 Dose: Not Given Sertraline HCl (Zoloft*) 200 mg PO DAILY [facility] Last Admin: 07/13/16 08:49 Dose: 200 mg Trazodone HCl (Desyrel Tab*) 50 mg PO BEDTIME PRN PRN Reason: SLEEP Vital Signs 07/12/16 07/12/16 07/12/16 11:47 14:20 14:30 Temperature 98.8 F Pulse Rate 88 93 Respiratory 16 Rate Blood Pressure 126/76 105/55 108/60 (mmHg) O2 Sat by Pulse 94 98 Oximetry 07/12/16 07/12/16 07/12/16 15:00 15:32 15:34 Temperature 98.5 F Pulse Rate 94 87 Respiratory 17 Rate Blood Pressure 109/65 119/68 114/68 (mmHg) O2 Sat by Pulse 98 93 Oximetry 07/12/16 07/12/16 07/12/16 16:44 17:29 17:30 Temperature Pulse Rate 111 115 Respiratory Rate Blood Pressure 114/71 113/67 (mmHg) O2 Sat by Pulse 94 84 91 Oximetry 07/12/16 07/12/16 07/12/16 18:00 18:30 20:00 Temperature Pulse Rate 119 114 Respiratory 16 Rate Blood Pressure 105/58 92/64 (mmHg) O2 Sat by Pulse 96 96 Oximetry 07/12/16 07/12/16 07/13/16 20:24 20:25 00:00 Temperature 98.2 F 98.3 F Pulse Rate 86 85 88 Respiratory 14 20 Rate Blood Pressure 119/53 147/61 (mmHg) O2 Sat by Pulse 93 93 95 Oximetry 07/13/16 07/13/16 07/13/16 04:22 07:44 09:08 Temperature 99.2 F 98.5 F Pulse Rate 81 85 68 Respiratory 20 16 14 Rate Blood Pressure 131/58 104/52 (mmHg) O2 Sat by Pulse 97 93 97 Oximetry 07/13/16 09:10 Temperature Pulse Rate Respiratory Rate Blood Pressure (mmHg) O2 Sat by Pulse 97 Oximetry Oxygen Devices in Use Now: Nasal Cannula - 2L-97% Appearance: Middle aged male sitting in a chair, NAD Eyes: No Scleral Icterus Ears/Nose/Mouth/Throat: Mucous Membranes Moist Respiratory: Symmetrical Chest Expansion and Respiratory Effort, Clear to Auscultation - few LLL crackles Cardiovascular: NL Sounds; No Murmurs; No JVD, RRR, - - trace LE edema Abdominal: NL Sounds; No Tenderness; No Distention - obese Extremities: No Clubbing, Cyanosis Skin: No Rash or Ulcers, No Nodules or Sclerosis Neurological: - - pt answers questions but his answers do not always make sense Result Diagrams: 07/13/16 05:33 07/13/16 05:33 Additional Lab and Data: Lab Results 07/11/16 07/11/16 07/11/16 Range/Units 16:16 16:32 16:32 WBC 20.9 H (3.5-10.8) 10^3/ul RBC 4.79 (4.0-5.4) 10^6/ul Hgb 14.2 (14.0-18.0) g/dl Hct 43 (42-52) % MCV 89 (80-94) fL MCH 30 (27-31) pg MCHC 33 (31-36) g/dl RDW 14 (10.5-15) % Plt Count 210 (150-450) 10^3/ul MPV 8 (7.4-10.4) um3 Neut % (Auto) 88.6 H (38-83) % Lymph % (Auto) 6.8 L (25-47) % [place] % (Auto) 4.1 (1-9) % Eos % (Auto) 0 (0-6) % Baso % (Auto) 0.5 (0-2) % Absolute Neuts (auto) 18.5 H (1.5-7.7) 10^3/ul Absolute Lymphs (auto) 1.4 (1.0-4.8) 10^3/ul Absolute Monos (auto) 0.9 H (0-0.8) 10^3/ul Absolute Eos (auto) 0 (0-0.6) 10^3/ul Absolute Basos (auto) 0.1 (0-0.2) 10^3/ul Absolute Nucleated RBC 0 10^3/ul Nucleated RBC % 0 INR (Anticoag Therapy) (0.89-1.11) APTT (26.0-36.3) seconds ABG pH (7.35-7.45) ABG pCO2 (35-45) mmHg ABG pO2 (80-100) mmHg ABG HCO3 (19-31) mmol/L ABG O2 Saturation (95-98) % ABG Base Excess (-2.0-2.0) Sodium 128 L (133-145) mmol/L Potassium 4.1 (3.5-5.0) mmol/L Chloride 92 L (101-111) mmol/L Carbon Dioxide 30 (22-32) mmol/L Anion Gap 6 (2-11) mmol/L BUN 17 (6-24) mg/dL Creatinine 0.76 (0.67-1.17) mg/dL Est GFR ( Amer) 136.4 (>60) Est GFR (Non-Af Amer) 106.1 (>60) BUN/Creatinine Ratio 22.4 H (8-20) Glucose 226 H (70-100) mg/dL POC Glucose (mg/dL) 240 H (74-106) mg/dL Lactic Acid (0.5-2.0) mmol/L Calcium 9.4 (8.6-10.3) mg/dL Total Bilirubin 0.50 (0.2-1.0) mg/dL AST 10 L (13-39) U/L ALT 18 (7-52) U/L Alkaline Phosphatase 60 (34-104) U/L Troponin I 0.01 (<0.04) ng/mL Total Protein 7.3 (6.4-8.9) g/dL Albumin 4.2 (3.2-5.2) g/dL Globulin 3.1 (2-4) g/dL Albumin/Globulin Ratio 1.4 (1-3) TSH (0.34-5.60) mcIU/mL Urine Color Urine Appearance Urine pH (5-9) Ur Specific [place] (1.010-1.030) Urine Protein (Negative) Urine Ketones (Negative) Urine Blood (Negative) Urine Nitrate (Negative) Urine Bilirubin (Negative) Urine Urobilinogen (Negative) Ur Leukocyte Esterase (Negative) Urine Glucose (Negative) Influenza A (Rapid) (Negative) Influenza B (Rapid) (Negative) 07/11/16 07/11/16 07/11/16 Range/Units 16:32 16:32 16:32 WBC (3.5-10.8) 10^3/ul RBC (4.0-5.4) 10^6/ul Hgb (14.0-18.0) g/dl Hct (42-52) % MCV (80-94) fL MCH (27-31) pg MCHC (31-36) g/dl RDW (10.5-15) % Plt Count (150-450) 10^3/ul MPV (7.4-10.4) um3 Neut % (Auto) (38-83) % Lymph % (Auto) (25-47) % [place] % (Auto) (1-9) % Eos % (Auto) (0-6) % Baso % (Auto) (0-2) % Absolute Neuts (auto) (1.5-7.7) 10^3/ul Absolute Lymphs (auto) (1.0-4.8) 10^3/ul Absolute Monos (auto) (0-0.8) 10^3/ul Absolute Eos (auto) (0-0.6) 10^3/ul Absolute Basos (auto) (0-0.2) 10^3/ul Absolute Nucleated RBC 10^3/ul Nucleated RBC % INR (Anticoag Therapy) 0.94 (0.89-1.11) APTT 25.9 L (26.0-36.3) seconds ABG pH (7.35-7.45) ABG pCO2 (35-45) mmHg ABG pO2 (80-100) mmHg ABG HCO3 (19-31) mmol/L ABG O2 Saturation (95-98) % ABG Base Excess (-2.0-2.0) Sodium (133-145) mmol/L Potassium (3.5-5.0) mmol/L Chloride (101-111) mmol/L Carbon Dioxide (22-32) mmol/L Anion Gap (2-11) mmol/L BUN (6-24) mg/dL Creatinine (0.67-1.17) mg/dL Est GFR ( Amer) (>60) Est GFR (Non-Af Amer) (>60) BUN/Creatinine Ratio (8-20) Glucose (70-100) mg/dL POC Glucose (mg/dL) (74-106) mg/dL Lactic Acid 1.1 (0.5-2.0) mmol/L Calcium (8.6-10.3) mg/dL Total Bilirubin (0.2-1.0) mg/dL AST (13-39) U/L ALT (7-52) U/L Alkaline Phosphatase (34-104) U/L Troponin I (<0.04) ng/mL Total Protein (6.4-8.9) g/dL Albumin (3.2-5.2) g/dL Globulin (2-4) g/dL Albumin/Globulin Ratio (1-3) TSH 2.48 (0.34-5.60) mcIU/mL Urine Color Urine Appearance Urine pH (5-9) Ur Specific [place] (1.010-1.030) Urine Protein (Negative) Urine Ketones (Negative) Urine Blood (Negative) Urine Nitrate (Negative) Urine Bilirubin (Negative) Urine Urobilinogen (Negative) Ur Leukocyte Esterase (Negative) Urine Glucose (Negative) Influenza A (Rapid) (Negative) Influenza B (Rapid) (Negative) 07/11/16 07/11/16 07/11/16 Range/Units 19:10 19:11 22:30 WBC (3.5-10.8) 10^3/ul RBC (4.0-5.4) 10^6/ul Hgb (14.0-18.0) g/dl Hct (42-52) % MCV (80-94) fL MCH (27-31) pg MCHC (31-36) g/dl RDW (10.5-15) % Plt Count (150-450) 10^3/ul MPV (7.4-10.4) um3 Neut % (Auto) (38-83) % Lymph % (Auto) (25-47) % [place] % (Auto) (1-9) % Eos % (Auto) (0-6) % Baso % (Auto) (0-2) % Absolute Neuts (auto) (1.5-7.7) 10^3/ul Absolute Lymphs (auto) (1.0-4.8) 10^3/ul Absolute Monos (auto) (0-0.8) 10^3/ul Absolute Eos (auto) (0-0.6) 10^3/ul Absolute Basos (auto) (0-0.2) 10^3/ul Absolute Nucleated RBC 10^3/ul Nucleated RBC % INR (Anticoag Therapy) (0.89-1.11) APTT (26.0-36.3) seconds ABG pH 7.42 (7.35-7.45) ABG pCO2 43 (35-45) mmHg ABG pO2 69 L (80-100) mmHg ABG HCO3 27.1 (19-31) mmol/L ABG O2 Saturation 96.5 (95-98) % ABG Base Excess 2.9 H (-2.0-2.0) Sodium (133-145) mmol/L Potassium (3.5-5.0) mmol/L Chloride (101-111) mmol/L Carbon Dioxide (22-32) mmol/L Anion Gap (2-11) mmol/L BUN (6-24) mg/dL Creatinine (0.67-1.17) mg/dL Est GFR ( Amer) (>60) Est GFR (Non-Af Amer) (>60) BUN/Creatinine Ratio (8-20) Glucose (70-100) mg/dL POC Glucose (mg/dL) (74-106) mg/dL Lactic Acid (0.5-2.0) mmol/L Calcium (8.6-10.3) mg/dL Total Bilirubin (0.2-1.0) mg/dL AST (13-39) U/L ALT (7-52) U/L Alkaline Phosphatase (34-104) U/L Troponin I (<0.04) ng/mL Total Protein (6.4-8.9) g/dL Albumin (3.2-5.2) g/dL Globulin (2-4) g/dL Albumin/Globulin Ratio (1-3) TSH (0.34-5.60) mcIU/mL Urine Color Yellow Urine Appearance Cloudy Urine pH 6.0 (5-9) Ur Specific [place] 1.020 (1.010-1.030) Urine Protein Negative (Negative) Urine Ketones Negative (Negative) Urine Blood Negative (Negative) Urine Nitrate Negative (Negative) Urine Bilirubin Negative (Negative) Urine Urobilinogen Negative (Negative) Ur Leukocyte Esterase Negative (Negative) Urine Glucose 2+(150 mg/dl) H (Negative) Influenza A (Rapid) Negative (Negative) Influenza B (Rapid) Negative (Negative) Microbiology and Other Data: Microbiology 07/12/16 04:36 Aerobic Blood Culture - Preliminary Blood Venous No Growth Day 1 Anaerobic Blood Culture - Preliminary No Growth Day 1 07/12/16 04:36 Aerobic Blood Culture - Preliminary Blood Venous No Growth Day 1 Anaerobic Blood Culture - Preliminary No Growth Day 1 Assess/Plan/Problems-Billing Mr Mccallum is a 56 yo M h/o schizophrenia with recent admission for respiratory failure thought in setting of COPD exacerbation returning with AMS found with pulmonary embolism on CTA performed 2/2 resting tachycardia in ED. - Patient Problems (1) Pulmonary embolism Current Visit: Yes Status: Acute Code(s): I26.99 - OTHER PULMONARY EMBOLISM WITHOUT ACUTE COR PULMONALE SNOMED Code(s): 42281405 Comment: The patient is going to [facility] where he will be administered his medications routinely. Will stop heparin drip now and start xarelto this afternoon. No DVT was noted. The patient is hemodynamically stable. I feel he is stable to go to [facility] today. (2) COPD (chronic obstructive pulmonary disease) Current Visit: Yes Status: Chronic Code(s): J44.9 - CHRONIC OBSTRUCTIVE PULMONARY DISEASE, UNSPECIFIED SNOMED Code(s): 57283902 Comment: No signs of exacerbation. Continue inhaler/neb regimen. (3) DM type 2 (diabetes mellitus, type 2) Current Visit: Yes Status: Chronic Comment: Sugars are under fair control. Continue current medication regimen. (4) Hypothyroidism Current Visit: Yes Status: Acute Code(s): E03.9 - HYPOTHYROIDISM, UNSPECIFIED SNOMED Code(s): 29372374 Comment: TSH is in good range. Continue current dose of synthroid. (5) HTN (hypertension) Current Visit: Yes Status: Chronic Code(s): I10 - ESSENTIAL (PRIMARY) HYPERTENSION SNOMED Code(s): 01261802 Comment: BP is under good control. Continue lisinopril 10mg daily. (6) Morbid obesity Current Visit: Yes Status: Chronic Code(s): E66.01 - MORBID (SEVERE) OBESITY DUE TO EXCESS CALORIES SNOMED Code(s): 772626919 Comment: Diagnosis is noted. (7) Schizo affective schizophrenia Current Visit: Yes Status: Chronic Code(s): F25.0 - SCHIZOAFFECTIVE DISORDER , BIPOLAR TYPE SNOMED Code(s): 350500524 Comment: Continue home medication regimen. (8) DVT prophylaxis Current Visit: Yes Status: Acute Code(s): [id number] - SNOMED Code(s): 897408101 Comment: heparin drip
[2016-07-13 13:11] VITALS: BP 111/64
--- NOTE | 2016-07-13 14:37 | DS ---
DISCHARGE SUMMARY: DATE OF ADMISSION: 07/11/16 DATE OF DISCHARGE: 07/13/16 PRIMARY CARE PROVIDER: Dr. Loyola. PRINCIPAL DIAGNOSIS: Right-sided pulmonary embolism. SECONDARY DIAGNOSES: 1. Recent admission for chronic obstructive pulmonary disease exacerbation. 2. Schizophrenia. 3. Anxiety/depression. 4. Type 2 diabetes. 5. Hypothyroidism. 6. Bipolar disorder. 7. Morbid obesity. DISCHARGE MEDICATIONS: 1. Xarelto 15 mg p.o. b.i.d. x21 days followed by Xarelto 20 mg p.o. daily (new ). 2. Tradjenta 5 mg p.o. daily. 3. Synthroid 112 mcg p.o. daily. 4. Albuterol 2 puffs inhaled q.4 hours p.r.n. shortness of breath. 5. Dulera 200/5 two puffs inhaled b.i.d. 6. Lisinopril 10 mg p.o. daily. 7. Invega Sustenna 156 mg IM q.30 days. 8. Zyprexa 20 mg p.o. q.h.s. 9. Zocor 40 mg p.o. q.h.s. 10. Zoloft 200 mg p.o. daily. 11. Glipizide 5 mg p.o. b.i.d. 12. Trazodone 50 mg p.o. q.h.s. p.r.n. insomnia. HOSPITAL COURSE: Mr. Mccallum is a 56-year-old male who was hospitalized from 07/02/16 through 07/10/16 with acute hypercarbic respiratory failure felt to be secondary to COPD exacerbation. The patient re-presented to the emergency room on 07/11/16 with complaints of confusion. This was reportedly worsened by the [facility] staff. The patient did complain of some shortness of breath and chest discomfort on presentation to the ER, which prompted a CTA of the chest which was positive for PE. The patient was admitted for evaluation and treatment of his pulmonary embolism. It is unclear if this was present during his prior hospitalization as PE was not evaluated for. The patient upon presentation to the emergency room had an O2 saturation of 95% on 2 L and was mildly tachycardic at approximately 105 beats per minute. The patient was admitted to the telemetry floor. He underwent bilateral lower extremity Dopplers which did not reveal any evidence of DVT. He was started on a heparin drip. The decision for what anticoagulant to put him on was felt to be a difficult one due to his mental status. However, at this point , the patient is being discharged to [facility] where he will be routinely given his prescriptions making NOAC a good choice for this patient. The patient will be started on Xarelto 15 mg p.o. b.i.d. x21 days followed by Xarelto 20 p.o. daily. Of note, the patient did have an elevated white blood cell count of 20.9 on presentation to the emergency room. He had been on steroids at that point. The steroids have been discontinued and his white blood cell count has trended down to 14.4. The patient should likely have followup blood work in the next several days to ensure that this has normalized. The patient does complain of some sputum, though again he is a very poor historian and it is unclear if he truly is coughing up any sputum. The patient is going to be off his prednisone at this point and will need to be monitored for signs of worsening respiratory status secondary to both the pulmonary embolism and COPD. In terms of the patient's chronic medical conditions, his home medication regimen is being maintained without any change. He will be continued on his usual dose of glipizide 5 mg twice daily for treatment of his type 2 diabetes. His hemoglobin A1c on the , however, was mildly elevated at 8%. His sugars can be followed and likely his glipizide dose can be increased to 10 mg twice daily for better control. The patient is also being maintained on his usual psychiatric medications without any change. During his last hospitalization, he was seen by Psychiatry, who did not recommend any changes in his medication regimen at that point. FOLLOWUP CONCERNS: The patient is being discharged to [facility] today, . ACTIVITY LEVEL: As tolerated. DIET: Low fat, diabetic. CONDITION ON DISCHARGE: Stable. TIME SPENT: Thirty-five minutes was spent discharging this patient. CC: Dr. Loyola * [id number] #: [id number] MTDD
[2016-07-13] MEDS ORDERED: Rivaroxaban TAB(*) 15 MG PO ONE (15:00)
== END 2016-07-13 15:40 ==
LOC: ED 14:56 → MEDTELE 07-12 00:16
PROVIDERS: ADMIT Hospitalist; ATTEND Hospitalist
DX: I26.99 Other pulmonary embolism without acute cor pulmonale (principal); F20.9 Schizophrenia, unspecified; F41.9 Anxiety disorder, unspecified; E11.9 Type 2 diabetes mellitus without complications; E03.9 Hypothyroidism, unspecified; F31.9 Bipolar disorder, unspecified; E66.01 Morbid (severe) obesity due to excess calories; Z79.01 Long term (current) use of anticoagulants; F17.200 Nicotine dependence, unspecified, uncomplicated; Z79.4 Long term (current) use of insulin
CPT/HCPCS: 36415; 36600; 71010; 71275; 80048; 80053; 81003; 82803; 83036; 83605; 84443; 84484; 85025; 85027; 85610; 85730; 87040; 87502; 93005; 93970; 94640; 94760; 96365; 96366; 99285; 99406; A9270-GY; G0378; G8978-GP-CJ; G8979-GP-CI; G8980-GP-CJ; J1644; J3370; J7512; Q9967

== ENCOUNTER 2016-07-19 00:34 | Inpatient (IN) | payer MEDICARE, MEDICAID ==
[2016-07-19 01:40] LABS: Hematocrit 36 % (42-52); Hemoglobin 12.3 g/dl (14.0-18.0); Mean Corpuscular HGB Conc 34 g/dl (31-36); Mean Corpuscular Hemoglobin 30 pg (27-31); Mean Corpuscular Volume 87 fL (80-94); Mean Platelet Volume 8 um3 (7.4-10.4); Red Blood Count 4.15 10^6/ul (4.0-5.4); Red Cell Distribution Width 14 % (10.5-15); White Blood Count 8.7 10^3/ul (3.5-10.8)
[2016-07-19 01:48] LABS: Urine Bacteria Absent (Absent); Urine Bilirubin Negative (Negative); Urine Glucose 1+(50 mg/dL) (Negative); Urine Nitrite Negative (Negative)
[2016-07-19 01:51] LABS: ALT 28 U/L (7-52); AST 18 U/L (13-39); Albumin 3.6 g/dL (3.2-5.2); Alkaline Phosphatase 45 U/L (34-104); Anion Gap 7 mmol/L (2-11); BUN/Creatinine Ratio 26.5 (8-20); Blood Urea Nitrogen 18 mg/dL (6-24); CO2 Carbon Dioxide 26 mmol/L (22-32); Chloride 97 mmol/L (101-111); EGFR African American 155.1 (>60); EGFR Non-African American 120.6 (>60); Globulin 2.9 g/dL (2-4); Glucose 215 mg/dL (70-100); Potassium 4.3 mmol/L (3.5-5.0); Sodium 130 mmol/L (133-145); Total Protein 6.5 g/dL (6.4-8.9)
[2016-07-19 01:53] LABS: Benzodiazepine Urine Screen None Detected (None Detect)
[2016-07-19 02:11] LABS: Acetaminophen < 15 mcg/mL; Alcohol < 10 mg/dL (<10); Salicylate < 2.50 mg/dL (<30)
--- NOTE | 2016-07-19 02:43 | ED ---
Alaina Costello Rebecca, scribed for Prince Altman MD on 07/19/16 at 0135 . Psychiatric Complaint - HPI Summary HPI Summary: Pt is a 56 y/o M BIBA who comes to ED p/w psychiatric complaints. Began suddenly tonight around 00:50 an has been constant since onset. States that his "mental situation at home was complicated" and that he wants to have a MHE performed. When asked what is wrong, he responds with "I'm not in my right mind " and "I don't think I'm going back home." Sx aggravated and alleviated by nothing. Denies SIs. Per EMS, pt was picked up at residence, alone. - History Of Current Complaint Chief Complaint: EDMentalHealth Time Seen by Provider: 07/19/16 00:39 Hx Obtained From: Patient Onset/Duration: Sudden Onset, Still Present Timing: Constant Severity Initially: Mild Severity Currently: Mild Aggravating Factor(s): Nothing Alleviating Factor(s): Nothing Associated Signs And Symptoms: Positive: Negative Related History: Positive For: Prior Psychiatric Issues - Schizophrenia Has Suicidal: Denies: Thoughts - Allergies/Home Medications Allergies/Adverse Reactions: Allergies Allergy/AdvReac Type Severity Reaction Status Date / Time Fish Allergy Allergy Unknown Verified 11/12/15 10:32 Reaction Details Haloperidol [From Haldol] Allergy Unknown Verified 11/12/15 10:32 Reaction Details Home Medications: Home Medications Albuterol Sulfate [Proair Respiclick] 2 puff INH Q4HR PRN 07/19/16 [History Confirmed 07/19/16] Furosemide TAB* [Lasix TAB*] 20 mg PO DAILY 07/19/16 [History Confirmed 07/19/16 ] PMH/Surg Hx/FS Hx/Imm Hx Endocrine/Hematology History: Reports: Hx Diabetes, Hx Thyroid Disease - hypo Cardiovascular History: Reports: Hx Hypercholesterolemia, Hx Hypertension - ON MEDS Denies: Other Cardiovascular Problems/Disorders Respiratory History: Reports: Hx Asthma, Hx Chronic Obstructive Pulmonary Disease (COPD), Hx Pneumonia Denies: Other Respiratory Problems/Disorders GI History: Denies: Other GI Disorders History: Reports: Hx Kidney Stones - 18 YRS AGO Musculoskeletal History: Reports: Hx Arthritis - BACK Sensory History: Reports: Hx Cataracts - PRITI, Hx Vision Problem - GLASSES Denies: Hx Hearing Aid Opthamlomology History: Reports: Hx Cataracts - PRITI, Hx Vision Problem - GLASSES Neurological History: Denies: Other Neuro Impairments/Disorders Psychiatric History: Reports: Hx Anxiety - ON MEDS, Hx Depression - MEDS, Hx Schizophrenia - Paranoid Denies: Hx Eating Disorder, Hx of Violent Episodes Against Others - Surgical History Surgery Procedure, Year, and Place: LEFT THUMB AGE 17 Hx Anesthesia Reactions: No Infectious Disease History: Unable to Obtain/Confirm Infectious Disease History: Denies: Traveled Outside the [place] in Last 30 Days - Family History Known Family History: Positive: Diabetes - Father, Other - negative hyperthermia , negative adverse reaction to anesthesia - Social History Alcohol Use: None Alcohol Amount: 12 beers a week Hx Substance Use: No Substance Use Type: Reports: None Substance Use Comment - Amount & Last Used: history marijuana and street drug use Hx Tobacco Use: Yes Smoking Status (MU): Light Every Day Tobacco Smoker Type: Cigarettes Amount Used/How Often: 2PPD Length of Time of Smoking/Using Tobacco: 30 years + Have You Smoked in the Last Year: Yes Review of Systems Constitutional: Negative Eyes: Negative ENT: Negative Cardiovascular: Negative Respiratory: Negative Gastrointestinal: Negative Genitourinary: Negative Musculoskeletal: Negative Skin: Negative Neurological: Negative Positive: Other - "Mental situation at home is complicated;" Denies SIs All Other Systems Reviewed And Are Negative: Yes Physical Exam Triage Information Reviewed: Yes Vital Signs On Initial Exam: Initial Vitals Temp Pulse Resp BP Pulse Ox 97.6 F 93 18 116/67 96 07/19/16 00:50 07/19/16 00:50 07/19/16 00:50 07/19/16 00:50 07/19/16 00:50 Vital Signs Reviewed: Yes Appearance: Positive: No Pain Distress, Obese Skin: Positive: Warm Eyes: Positive: ALYCIA ENT: Positive: Hearing grossly normal Neck: Positive: Supple Respiratory/Lung Sounds: Positive: Clear to Auscultation, Breath Sounds Present Cardiovascular: Positive: RRR Abdomen Description: Positive: Nontender, Soft Bowel Sounds: Positive: Present Musculoskeletal: Positive: Strength/ROM Intact Neurological: Positive: Sensory/Motor Intact, Alert, Oriented to Person Place, Time Psychiatric: Positive: Anxious Diagnostics - Vital Signs Vital Signs Temp Pulse Resp BP Pulse Ox 07/19/16 00:50 97.6 F 93 18 116/67 96 - Laboratory Lab Results: Lab Results 0207/19/16 07/19/16 Range/Units 01:21 01:21 01:21 WBC 8.7 (3.5-10.8) 10^3/ul RBC 4.15 (4.0-5.4) 10^6/ul Hgb 12.3 L (14.0-18.0) g/dl Hct 36 L (42-52) % MCV 87 (80-94) fL MCH 30 (27-31) pg MCHC 34 (31-36) g/dl RDW 14 (10.5-15) % Plt Count 140 L (150-450) 10^3/ul MPV 8 (7.4-10.4) um3 Neut % (Auto) 75.7 (38-83) % Lymph % (Auto) 12.2 L (25-47) % Greer % (Auto) 10.1 H (1-9) % Eos % (Auto) 1.6 (0-6) % Baso % (Auto) 0.4 (0-2) % Absolute Neuts (auto) 6.6 (1.5-7.7) 10^3/ul Absolute Lymphs (auto) 1.1 (1.0-4.8) 10^3/ul Absolute Monos (auto) 0.9 H (0-0.8) 10^3/ul Absolute Eos (auto) 0.1 (0-0.6) 10^3/ul Absolute Basos (auto) 0 (0-0.2) 10^3/ul Absolute Nucleated RBC 0 10^3/ul Nucleated RBC % 0 Sodium 130 L (133-145) mmol/L Potassium 4.3 (3.5-5.0) mmol/L Chloride 97 L (101-111) mmol/L Carbon Dioxide 26 (22-32) mmol/L Anion Gap 7 (2-11) mmol/L BUN 18 (6-24) mg/dL Creatinine 0.68 (0.67-1.17) mg/dL Est GFR ( Amer) 155.1 (>60) Est GFR (Non-Af Amer) 120.6 (>60) BUN/Creatinine Ratio 26.5 H (8-20) Glucose 215 H (70-100) mg/dL Calcium 9.0 (8.6-10.3) mg/dL Total Bilirubin 0.30 (0.2-1.0) mg/dL AST 18 (13-39) U/L ALT 28 (7-52) U/L Alkaline Phosphatase 45 (34-104) U/L Total Protein 6.5 (6.4-8.9) g/dL Albumin 3.6 (3.2-5.2) g/dL Globulin 2.9 (2-4) g/dL Albumin/Globulin Ratio 1.2 (1-3) Urine Color Yellow Urine Appearance Clear Urine pH 5.0 (5-9) Ur Specific [place] 1.018 (1.010-1.030) Urine Protein Negative (Negative) Urine Ketones Negative (Negative) Urine Blood 1+ H (Negative) Urine Nitrate Negative (Negative) Urine Bilirubin Negative (Negative) Urine Urobilinogen Negative (Negative) Ur Leukocyte Esterase Negative (Negative) Urine WBC (Auto) Absent (Absent) Urine RBC (Auto) 1+(3-5/hpf) H (Absent) Ur Squamous Epith Cells Present H (Absent) Urine Bacteria Absent (Absent) Urine Glucose 1+(50 mg/dl) H (Negative) Salicylates < 2.50 (<30) mg/dL Urine Opiates Screen (None Detect) Acetaminophen < 15 mcg/mL Ur Barbiturates Screen (None Detect) Ur Phencyclidine Scrn (None Detect) Ur Amphetamines Screen (None Detect) U Benzodiazepines Scrn (None Detect) Urine Cocaine Screen (None Detect) U Cannabinoids Screen (None Detect) Serum Alcohol < 10 (<10) mg/dL 07/19/16 Range/Units 01:21 WBC (3.5-10.8) 10^3/ul RBC (4.0-5.4) 10^6/ul Hgb (14.0-18.0) g/dl Hct (42-52) % MCV (80-94) fL MCH (27-31) pg MCHC (31-36) g/dl RDW (10.5-15) % Plt Count (150-450) 10^3/ul MPV (7.4-10.4) um3 Neut % (Auto) (38-83) % Lymph % (Auto) (25-47) % Greer % (Auto) (1-9) % Eos % (Auto) (0-6) % Baso % (Auto) (0-2) % Absolute Neuts (auto) (1.5-7.7) 10^3/ul Absolute Lymphs (auto) (1.0-4.8) 10^3/ul Absolute Monos (auto) (0-0.8) 10^3/ul Absolute Eos (auto) (0-0.6) 10^3/ul Absolute Basos (auto) (0-0.2) 10^3/ul Absolute Nucleated RBC 10^3/ul Nucleated RBC % Sodium (133-145) mmol/L Potassium (3.5-5.0) mmol/L Chloride (101-111) mmol/L Carbon Dioxide (22-32) mmol/L Anion Gap (2-11) mmol/L BUN (6-24) mg/dL Creatinine (0.67-1.17) mg/dL Est GFR ( Amer) (>60) Est GFR (Non-Af Amer) (>60) BUN/Creatinine Ratio (8-20) Glucose (70-100) mg/dL Calcium (8.6-10.3) mg/dL Total Bilirubin (0.2-1.0) mg/dL AST (13-39) U/L ALT (7-52) U/L Alkaline Phosphatase (34-104) U/L Total Protein (6.4-8.9) g/dL Albumin (3.2-5.2) g/dL Globulin (2-4) g/dL Albumin/Globulin Ratio (1-3) Urine Color Urine Appearance Urine pH (5-9) Ur Specific [place] (1.010-1.030) Urine Protein (Negative) Urine Ketones (Negative) Urine Blood (Negative) Urine Nitrate (Negative) Urine Bilirubin (Negative) Urine Urobilinogen (Negative) Ur Leukocyte Esterase (Negative) Urine WBC (Auto) (Absent) Urine RBC (Auto) (Absent) Ur Squamous Epith Cells (Absent) Urine Bacteria (Absent) Urine Glucose (Negative) Salicylates (<30) mg/dL Urine Opiates Screen None detected (None Detect) Acetaminophen mcg/mL Ur Barbiturates Screen None detected (None Detect) Ur Phencyclidine Scrn None detected (None Detect) Ur Amphetamines Screen None detected (None Detect) U Benzodiazepines Scrn None detected (None Detect) Urine Cocaine Screen None detected (None Detect) U Cannabinoids Screen None detected (None Detect) Serum Alcohol (<10) mg/dL Result Diagrams: 07/20/16 06:18 07/20/16 06:18 Lab Statement: Any lab studies that have been ordered have been reviewed, and results considered in the medical decision making process. - Radiology CXR Xray Interpretation: No Acute Changes Radiology Interpretation Completed By: ED Physician Course/Dx - Course Assessment/Plan: Pt is a 56 y/o M who presents to ED stating his "mental situation at home was complicated" and that he desires a MHE. Denies SIs. Medically cleared for MHE at 0204. - Differential Dx/Clinical Impression Provider Diagnosis: ALTERED MENTAL STATUS VS SCHIZOPHRENIA/ PSYCHOSIS Discharge - Discharge Plan Condition: Stable Disposition: ADMITTED TO [facility] The documentation as recorded by the Alaina lynne Rebecca accurately reflects the service I personally performed and the decisions made by me, Prince Altman MD.
--- NOTE | 2016-07-19 07:52 | RAD ---
HISTORY: Cough COMPARISONS: July 11, 2016 VIEWS: 2: Frontal dual-energy and lateral views of the chest. FINDINGS: CARDIOMEDIASTINAL SILHOUETTE: The cardiomediastinal silhouette is normal. KALANI: The kalani are normal. PLEURA: The costophrenic angles are sharp. No pleural abnormalities are noted. LUNG PARENCHYMA: There is mild patchy alveolar opacification of the right lung base ABDOMEN: The upper abdomen is clear. There is no subphrenic gas. BONES AND SOFT TISSUES: No bone or soft tissue abnormalities are noted. OTHER: None. IMPRESSION: MINIMAL PATCHY ATELECTASIS VERSUS EARLY CONSOLIDATION OF THE RIGHT LUNG BASE. RECOMMEND FOLLOW-UP UNTIL RESOLUTION TO EXCLUDE UNDERLYING PULMONARY PARENCHYMAL PATHOLOGY.
[2016-07-19] MEDS ORDERED: Nicotine Inhaler* 10 MG AMP INH PRN (13:03)
[2016-07-19] MEDS ORDERED: NS 0.9% 1000 ML* 1,000 ML IV ONE ×2 (16:32→17:01)
[2016-07-19] MEDS ORDERED: Ondansetron INJ* 2 MG/ML VIAL IV PRN (17:01)
[2016-07-19 17:09] LABS: PCO2 Arterial 50 mmHg (35-45)
[2016-07-19 17:19] LABS: Urine Bilirubin Negative (Negative); Urine Glucose 1+(50 mg/dL) (Negative); Urine Nitrite Negative (Negative)
--- NOTE | 2016-07-19 17:19 | RAD ---
INDICATION: Altered mental status. COMPARISON: Comparison is made with a prior CT of the brain from November 18, 2015. TECHNIQUE: Contiguous axial sections of the brain were obtained from the skull base to the vertex without contrast. FINDINGS: The ventricles, cisterns and sulci are within normal limits. No significant focal abnormality or mass effect is seen. There is no evidence for hemorrhage. There are nodular densities in the inferior portions of both maxillary sinuses measuring 2.1 cm on the right and 2.0 cm in the left suggestive of mucous retention cysts or polyps. There is mild mucosal thickening within the ethmoid air cells. The paranasal sinuses and mastoid air cells otherwise appear clear. IMPRESSION: NO EVIDENCE FOR GROSS ACUTE INFARCT, MASS EFFECT OR HEMORRHAGE.
[2016-07-19 17:53] LABS: Hematocrit 36 % (42-52); Hemoglobin 12.3 g/dl (14.0-18.0); Mean Corpuscular HGB Conc 34 g/dl (31-36); Mean Corpuscular Hemoglobin 30 pg (27-31); Mean Corpuscular Volume 88 fL (80-94); Mean Platelet Volume 8 um3 (7.4-10.4); Red Blood Count 4.14 10^6/ul (4.0-5.4); Red Cell Distribution Width 14 % (10.5-15); White Blood Count 6.9 10^3/ul (3.5-10.8)
[2016-07-19 18:04] LABS: ALT 27 U/L (7-52); AST 16 U/L (13-39); Albumin 3.4 g/dL (3.2-5.2); Alkaline Phosphatase 46 U/L (34-104); Anion Gap 5 mmol/L (2-11); BUN/Creatinine Ratio 18.5 (8-20); Blood Urea Nitrogen 12 mg/dL (6-24); CO2 Carbon Dioxide 29 mmol/L (22-32); Chloride 97 mmol/L (101-111); Creatine Kinase 35 U/L (10-223); EGFR African American 163.4 (>60); EGFR Non-African American 127.1 (>60); Globulin 2.8 g/dL (2-4); Glucose 259 mg/dL (70-100); Potassium 4.3 mmol/L (3.5-5.0); Sodium 131 mmol/L (133-145); Total Protein 6.2 g/dL (6.4-8.9)
[2016-07-19 18:06] LABS: Troponin I 0.01 ng/mL (<0.04)
[2016-07-19 18:24] LABS: Acetaminophen < 15 mcg/mL; Salicylate < 2.50 mg/dL (<30)
[2016-07-19 18:56] LABS: TSH (Thyroid Stimulating Horm) 3.18 mcIU/mL (0.34-5.60)
[2016-07-19] MEDS ORDERED: Albuterol HFA INHALER* 8 gm MDI INH PRN (19:09)
[2016-07-19] MEDS ORDERED: Paliperidone SUSTENNA* 156 MG/1 ML IM SCH (20:00)
--- NOTE | 2016-07-19 23:05 | HP ---
HISTORY AND PHYSICAL: DATE OF ADMISSION: 07/19/16 TIME OF MY EVALUATION: 5:00 p.m. PRIMARY CARE PROVIDER: Chris Loyola MD - [facility]. CHIEF COMPLAINT: Altered mental status - the patient requesting mental health evaluation - "not in my right mind." HISTORY OF PRESENT ILLNESS: Please see the extensive ED notes from the past 15 hours, over which time the patient was being evaluated from a mental health perspective for psychiatric complaints. The patient started not thinking right since about 0050 hours on 07/19/16. The patient states that he was "going out of his mind." The patient did not describe anything in particular aggravating his situation. He was picked up by EMS at his residence. I believe he called EMS. He denied suicidal ideations and homicidal ideations. The patient was deemed to be hemodynamically stable in the emergency room with an initial temperature of 97.6, pulse 93, respirations 18, blood pressure 116/67, and pulse ox 96. Additional set of labs was generally unremarkable except for a global pattern of mild dehydration with a modestly elevate [id number]-[id number] ratio and a sodium of 130. The patient has been unreliable with his medications overall. He is not coherent during my interview, but he did admit that he has not been taking his medications as described. He does understand that he is in [facility], but he has bizarre complaints and essentially disorganized thinking that does not coherently describe any clear complaint except that he realizes he is not thinking straight. The patient does not describe any specific complaints. He has a guajardo-positive review of systems and I tested this by suggesting whether he had rather bizarre conditions and he would always say "yes." The patient was seen by the mental health area secretary in the emergency room and given his medical complexity, there was some suggestion that the patient might have a medical reason for his underlying dementia. I spoke with the emergency room physician about this and although there are no clear medical reasons for his delirium, he is being placed on observation status to ensure medical clearance before follow on psychiatric evaluation. PAST MEDICAL HISTORY: 1. COPD. 2. Asthma. 3. Anxiety. 4. Depression. 5. Schizophrenia. 6. Diabetes mellitus - non-insulin dependent. 7. Hypothyroidism - on Synthroid replacement. 8. Chronic back pain. 9. Bipolar disorder. 10. Morbid obesity. 11. History of cardiac catheterization. 12. History of cataract extraction. 13. History of tooth extractions. 14. History of multiple pneumonias and previous hospitalizations in March for chronic obstructive pulmonary disease exacerbation with repeat hospitalization earlier in June 2016 for COPD and then later in the month for an acute PE, only days before this presentation. 15. History of ongoing tobacco abuse. 16. History of medical noncompliance as characterized during the hospitalization back in March 2016 and by his own admission now. OUTPATIENT MEDICATIONS: 1. Invega 156 mg IM monthly. 2. Levothyroxine 112 mcg daily. 3. Linagliptin (Tradjenta) 5 mg by mouth daily. 4. Lisinopril 10 mg by mouth daily. 5. Olanzapine (Zyprexa) 20 mg by mouth at bedtime. 6. Sertraline (Zoloft) 200 mg by mouth daily. 7. Simvastatin (Zocor) 40 mg by mouth at bedtime. 8. Glipizide 5 mg by mouth twice daily with meals. 9. Trazodone 50 mg by mouth at bedtime. ALLERGIES: HALDOL/FISH. FAMILY HISTORY: Reviewed/noncontributory based on this presentation of a known patient with COPD and schizophrenia with confusion and altered mental status with diagnosis between known entities. SOCIAL HISTORY: This patient is still smoking. He did not quantify because of his altered mental status. The patient does not use alcohol. No recreational drug use. The patient is disabled. He lives in the community. REVIEW OF SYSTEMS: A full review of systems was not accomplished secondary to the patient's altered mental status, but will be followed up later in this hospitalization. PHYSICAL EXAMINATION GENERAL APPEARANCE: He is a disheveled, disorganized, morbidly obese, elderly man who appears slightly older than stated age, in no apparent distress. I met him standing outside of his room coming back from the bathroom. He had told me , he "missed the toilet," although this ended up not being true, characteristic of his unrealistic thoughts and reports. VITAL SIGNS: On admission, temperature as above was 97.6 degrees Fahrenheit, pulse rate 93, respirations 18, oxygen saturation 96% on room air, and blood pressure 116/67. HEENT: Oropharynx is clear. Mucous membranes are moist. NECK: Supple. No elevated JVD. No bruits. This was with the patient at 45 degrees sitting in his room. ABDOMEN: Morbidly obese, nontender. No ascites appreciated. EXTREMITIES: Without clubbing, cyanosis, or edema. He walks independently. Moves all extremities equally. SKIN: Dry and intact. No rashes or lesions breakdown. NEUROLOGIC: He seems intact. No sensory or motor or proprioception defects. PSYCH: The patient has very disorganized thoughts. He is aware of his name and his location, but not the date. He has bizarre complaints of pains radiating through his body and sensations travelling in patterns that are neurologically impossible. The patient has a fluent speech, but his thought content and speech content are impaired. LYMPHS: No adenopathy appreciated. ADMISSION LABORATORY DATA: White blood cell count 8.7, hemoglobin 12.3, and platelets 140. ABG at 1655 hours showed arterial pH 7.38/pCO2 50/pO2 74. Blood chemistry is significant for sodium 130, potassium 4.3, chloride 97, bicarb 26, BUN 18, creatinine 0.68, and glucose 215 (elevated). Urinalysis normal except for 1+ blood by dip and 1+ urine rbc's by microscopy with squamous epithelial cells present and urine glucose of 1+ (50 mg/dL). This is consistent with his diabetes. His urine toxicology is unremarkable with serum alcohol level of less than 10. DIAGNOSTIC STUDIES: Brain CT showed no acute intracranial processes. Chest x- ray was consistent with stigmata of COPD with minimal patchy atelectasis versus early consolidation of the right lung base with recommended followup to exclude underlying pulmonary parenchymal pathology. IMPRESSION: Mr. Mccallum is a 56-year-old gentleman who comes in with disorganized thoughts and feeling that he is "going out of his mind." The patient had a mental health evaluation for his schizophrenia. There was some suggestion that perhaps his recent pulmonary embolism or one of his other medical problems (most suspiciously his chronic obstructive pulmonary disease for which he has had hypercarbia in the past) are underlying his presentation from a medical perspective. The patient is being placed on the medical service for observation for declaration of an organic problem to explain his altered mental status. The leading candidate would be the patchy infiltrate on the right side, although the patient does not have an elevated white blood cell count, does not have fever, does not have consistent pulmonary complaints and this patchy infiltrate might have been a manifestation of any one of the number of pulmonary illnesses he has had over the past one to two months and infiltrates, as a matter of fact , do not resolve quickly so this might not even be an acute process. His urinalysis is clear not to suggest a urinary tract infection in this case. There is no evidence for a skin infection or a blood stream infection. His labs are significant only for a mild dehydration with the elevated BUN-to- creatinine ratio and perhaps his hyponatremia is a consequence of one of his medications. I will check a TSH level to ensure his Synthroid replacement is adequate. In terms of his psychiatric control, I do not have a reason to believe that he is compliant with his medications. I will check with his pharmacy tomorrow to check a medication fill rate for his psychotropic medications, but I think it is fair to suspect he is being noncompliant with his schizophrenia regimen and his bipolar regimen. I would like him to be evaluated by psychiatry tomorrow for their thoughts. If a medical indication becomes more obvious, we will be happy to keep him on our service, but otherwise I think this is primarily a psychiatric problem. Full code. Regular diet as the patient tolerates - consistent carbohydrate. TIME SPENT: Total time taken to admit Mr. Mccallum was 75 minutes, greater than half the time was spent in the emergency room going over the admission history and physical and questioning this somewhat difficult historian. [id number]/CPS #: [id number] [id number]
[2016-07-19] MEDS: Mometasone/Formoter 200/5 MDI INH SCH (23:14)
--- NOTE | 2016-07-20 00:20 | ED ---
IMathieu Erika, scribed for Kashif aGmboa MD on 07/19/16 at 1627 . Progress - Progress Note Progress Note: I was asked to reevaluate Mr. Mccallum by the psychiatric business management consultant. He had been medically cleared on an earlier shift. When I saw him, he was unable to answer questions appropriately and was not oriented to time or place. Because his sensorium was so altered, I was concerned that this represented an acute delirium rather that a delusional state and I discussed patient care with Dr. Mariscal (hospitalist) at 14:26 - will come consult for possible admission. Discussed case again at 16:50 - patient will be admitted OBV. - Results/Orders Results/Orders: CT Brain read by radiologist - IMPRESSION: NO EVIDENCE FOR GROSS ACUTE INFARCT , MASS EFFECT OR HEMORRHAGE Course/Dx - Diagnoses Provider Diagnoses: ALTERED MENTAL STATUS VS SCHIZOPHRENIA/ PSYCHOSIS Discharge - Discharge Plan Condition: Stable Disposition: ADMITTED TO [facility] The documentation as recorded by the scribeMathieu Erika accurately reflects the service I personally performed and the decisions made by me, Kashif Gamboa MD.
[2016-07-20] MEDS: Rivaroxaban TAB(*) 15 MG PO SCH ×3 (00:31→21:32)
[2016-07-20] MEDS: OLANzapine TAB* 10 MG PO SCH ×2 (00:31→21:32)
[2016-07-20 07:28] LABS: Hematocrit 36 % (42-52); Hemoglobin 12.2 g/dl (14.0-18.0); Mean Corpuscular HGB Conc 34 g/dl (31-36); Mean Corpuscular Hemoglobin 30 pg (27-31); Mean Corpuscular Volume 88 fL (80-94); Mean Platelet Volume 8 um3 (7.4-10.4); Red Blood Count 4.09 10^6/ul (4.0-5.4); Red Cell Distribution Width 14 % (10.5-15); White Blood Count 6.8 10^3/ul (3.5-10.8)
[2016-07-20 07:39] LABS: Calcium 8.6 mg/dL (8.6-10.3); EGFR African American 186.4 (>60); EGFR Non-African American 144.9 (>60); Potassium 4.3 mmol/L (3.5-5.0)
[2016-07-20] MEDS: Mometasone/Formoter 200/5 MDI INH SCH ×2 (08:08→21:04)
[2016-07-20 08:15] LABS: Benzodiazepine Urine Screen None Detected (None Detect)
[2016-07-20] MEDS: Linagliptin (NF) 5 MG TAB PO SCH (08:23)
[2016-07-20] MEDS: Sertraline* 100 MG TAB PO SCH (08:25)
[2016-07-20] MEDS: Lisinopril TAB* 10 MG PO SCH (08:25)
[2016-07-20] MEDS: Levothyroxine TAB* 112 MCG TAB PO SCH (08:25)
[2016-07-20] MEDS: Furosemide TAB* 20 MG PO SCH (08:25)
[2016-07-20] MEDS: glipiZIDE TAB* 5 MG PO SCH ×2 (08:25→17:17)
[2016-07-20] MEDS ORDERED: Rivaroxaban TAB(*) 20 MG TAB PO SCH (09:00)
[2016-07-20] MEDS ORDERED: fluPHENAZine HCL TAB* 5 MG PO ONE (15:02)
[2016-07-20] MEDS ORDERED: fluPHENAZine HCL TAB* 5 MG PO PRN (15:03)
--- NOTE | 2016-07-20 15:21 | CONSULT ---
Identification - Patient Identification Reason for Psychiatric Consultation: Other - Disorganized thought process -: Patient is a 56 year old, M admitted on 07/20/16. - MHU Identification Employment Status: Disabled Hx Psychiatric Hospitalization: Yes History - Objective HPI: 56 y.o. , white male with a chronic history of schizoaffective disorder presents to the hospital confused, disorganized and unable to provide much coherent history. Primary team is wondering if this is a psychiatric presentation and is seeking recommendations for his management. The patient is known to me from a recent stay on the medical unit when he was admitted with hypercarbic respiratory failure. On July 07 he presented with symptoms consistent with acute delirium secondary to respiratory insufficiency. Ultimately that delirium resolved with medical management and he was discharged home. The patient was readmitted on July 11 with acute PE, which is actively being treated with anticoagulation therapy. He had a brief stay in the [facility] rehab from July 13 to the and was then discharged home with visiting nurse services by the [facility] agency ([phone]). I have spoken to his psychiatrist, Dr. Fajardo, and his window caser, Ramana Ponce ([phone]), at [facility] and they indicate that Andrea has been psychiatrically stable on oral olanzapine and injectable paliperidone. They note that thought disorganization is not a typical symptom when he is psychiatrically ill, as he typically presents with amotivation, lack of self care and auditory hallucinations when psychiatrically decompensated. His last psychiatric admission was in 2011. They feel that his mental status only deteriorated recently with his pulmonary status. On exam he is quite confused with echolalic , non-sequitur speech and thought derailment. He denies SI or HI. He likewise denies AH or VH. Exam Appearance: Obese Hygiene: Normal Grooming: Disheveled Psychomotor Activities: Normal Exhibits Abnormal Movement: No Attitude and Relatedness: Psychotically Related Eye Contact: Fair - Speech Quality: Unpressured Latencies: Normal Quantity: Copious Patient's Decription of Mood: "Okay" Observed Affect: Fair Affect Consistent with: Euthymia Patient's Thought Process: Disorganized, Loose Associations Thought Content: No Passive Wish, No Suicidal Planning, No Homicidal Ideation, No Paranoid Ideation Experiencing Hallucinations: No, Sensorium is Clear Type of Hallucinations: Visual: No, Auditory: No, Command: No Level of Consciousness: Alert Orientation: No Intact, No Orientated to Time, No Orientated to Place, No Orientated to Person Impulse Control: Poor Insight and Judgement: Impaired Impression - Impression Clinical Impression: 56 y.o. 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 According to the clinicians at [facility], who have worked with him for years, this is not a typical psychiatric presentation for him, which would point to a delirium picture. Although he does have an active PE, his vitals and blood work are mostly within the normal limits. He does have some equivocal findings on his CXR, which the primary team is aware of. 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 Plan - Treatment Plan Treatment Plan: I have discussed the case with Dr. Mariscal who will further pursue medical causes for encephalopathy. For now I will give him a one-time dose of fluphenazine 5mg PO and start a prn of fluphenazine 5mg PO q6h for confusion, as he is allergic to haldol. I note that he is already receiving his scheduled oral olanzapine and yesterday received his monthly Invega Sustenna shot. Psychiatry will follow closely. Continued Medication Management: Start Medication Medications: Current Medications Acetaminophen (Tylenol Tab*) 650 mg PO Q4H PRN PRN Reason: FEVER/PAIN Albuterol (Ventolin Hfa Inhaler*) 2 puff INH Q4H PRN PRN Reason: SHORTNESS OF BREATH Furosemide (Lasix Tab*) 20 mg PO DAILY [facility] Last Admin: 07/20/16 08:25 Dose: 20 mg Glipizide (Glucotrol Tab*) 5 mg PO BID AC [facility] Last Admin: 07/20/16 08:25 Dose: 5 mg Haloperidol (Haldol Tab*) 5 mg PO ONCE ONE Stop: 07/20/16 15:03 Haloperidol (Haldol Tab*) 5 mg PO Q6H PRN PRN Reason: CONFUSION Levothyroxine Sodium (Synthroid Tab*) 112 mcg PO DAILY [facility] Last Admin: 07/20/16 08:25 Dose: 112 mcg Linagliptin (Tradjenta (Nf)) 5 mg PO DAILY [facility] Last Admin: 07/20/16 08:23 Dose: Not Given Lisinopril (Prinivil Tab*) 10 mg PO DAILY [facility] Last Admin: 07/20/16 08:25 Dose: 10 mg Mometasone Furoate/Formoterol Fumar (Dulera 200/5 Mdi*) 2 puff INH BID [facility] Last Admin: 07/20/16 08:08 Dose: 2 puff Nicotine (Nicotine Inhaler*) 10 mg INH Q2H PRN PRN Reason: CRAVING Olanzapine (Zyprexa Tab*) 20 mg PO BEDTIME [facility] Last Admin: 07/20/16 00:31 Dose: 20 mg Ondansetron HCl (Zofran Inj*) 4 mg IV Q4H PRN PRN Reason: NAUSEA/VOMITING Paliperidone Palmitate (Invega Sustenna*) 156 mg IM Q30D [facility] Last Admin: 07/19/16 21:03 Dose: 156 mg Rivaroxaban (Xarelto(*)) 15 mg PO BID [facility] Last Admin: 07/20/16 08:25 Dose: 15 mg Sertraline HCl (Zoloft*) 200 mg PO DAILY [facility] Last Admin: 07/20/16 08:25 Dose: 200 mg Trazodone HCl (Desyrel Tab*) 50 mg PO BEDTIME PRN PRN Reason: SLEEP
--- NOTE | 2016-07-20 20:11 | PN ---
Subjective Date of Service: 07/20/16 Interval History: . denies any complaints - still not making sense. sleeps most of day. no fever or other symptoms reported. . Family History: Unchanged from Admission Social History: Unchanged from Admission Past Medical History: Unchanged from Admission Objective Active Medications: . Acetaminophen (Tylenol Tab*) 650 mg PO Q4H PRN PRN Reason: FEVER/PAIN Albuterol (Ventolin Hfa Inhaler*) 2 puff INH Q4H PRN PRN Reason: SHORTNESS OF BREATH Fluphenazine HCl (Prolixin Tab*) 5 mg PO Q6H PRN PRN Reason: CONFUSION Furosemide (Lasix Tab*) 20 mg PO DAILY [facility] Last Admin: 07/20/16 08:25 Dose: 20 mg Glipizide (Glucotrol Tab*) 5 mg PO BID [facility] Last Admin: 07/20/16 17:17 Dose: 5 mg Levothyroxine Sodium (Synthroid Tab*) 112 mcg PO DAILY [facility] Last Admin: 07/20/16 08:25 Dose: 112 mcg Linagliptin (Tradjenta (Nf)) 5 mg PO DAILY [facility] Last Admin: 07/20/16 08:23 Dose: Not Given Lisinopril (Prinivil Tab*) 10 mg PO DAILY [facility] Last Admin: 07/20/16 08:25 Dose: 10 mg Mometasone Furoate/Formoterol Fumar (Dulera 200/5 Mdi*) 2 puff INH BID [facility] Last Admin: 07/20/16 08:08 Dose: 2 puff Nicotine (Nicotine Inhaler*) 10 mg INH Q2H PRN PRN Reason: CRAVING Olanzapine (Zyprexa Tab*) 20 mg PO BEDTIME [facility] Last Admin: 07/20/16 00:31 Dose: 20 mg Ondansetron HCl (Zofran Inj*) 4 mg IV Q4H PRN PRN Reason: NAUSEA/VOMITING Paliperidone Palmitate (Invega Sustenna*) 156 mg IM Q30D [facility] Last Admin: 07/19/16 21:03 Dose: 156 mg Rivaroxaban (Xarelto(*)) 15 mg PO BID [facility] Last Admin: 07/20/16 08:25 Dose: 15 mg Sertraline HCl (Zoloft*) 200 mg PO DAILY [facility] Last Admin: 07/20/16 08:25 Dose: 200 mg Trazodone HCl (Desyrel Tab*) 50 mg PO BEDTIME PRN PRN Reason: SLEEP . Vital Signs 07/20/16 07/20/16 07/20/16 12:51 19:02 19:12 Temperature 99.8 F 98.8 F Pulse Rate 99 88 126 Respiratory 18 20 Rate Blood Pressure 94/47 94/47 100/59 (mmHg) O2 Sat by Pulse 95 96 Oximetry Appearance: NAd Ears/Nose/Mouth/Throat: Clear Oropharnyx Neck: Trachea Midline Respiratory: Symmetrical Chest Expansion and Respiratory Effort Cardiovascular: NL Sounds; No Murmurs; No JVD Abdominal: NL Sounds; No Tenderness; No Distention, - - obese Lymphatic: No Cervical Adenopathy Extremities: No Edema Skin: No Rash or Ulcers Neurological: Alert and Oriented x 3 Lines/Tubes/Other Access: Clean, Dry and Intact Peripheral IV Nutrition: Taking PO's Result Diagrams: 07/20/16 06:18 07/20/16 06:18 Assess/Plan/Problems-Billing Assessment: 56 yo man with disorganized thoughts / altered mental status -- which is an unusual manifestation of his schizophrenia/bipolar disease. At the same time, no clear medical explanation for his presentation either. Continuing with watchful waiting and surveillance for a medical explanation. Providing ongoing supportive care. - Patient Problems (1) Altered mental status Current Visit: No Status: Acute Code(s): R41.82 - ALTERED MENTAL STATUS, UNSPECIFIED Comment: - unclear etiology - had resolved quickly in previous admissions; though there was a known acute illnesses (COPD exacerbation and PE) - pCO2 ok...(~50)..I can't think this would cause decompensation - no increased WBC, fever, electrolyte derangements, etc. - will continue to surveil. (2) Pulmonary embolism Current Visit: No Status: Acute Code(s): I26.99 - OTHER PULMONARY EMBOLISM WITHOUT ACUTE COR PULMONALE SNOMED Code(s): 13768006 (3) COPD (chronic obstructive pulmonary disease) Current Visit: No Status: Chronic Priority: High Code(s): J44.9 - CHRONIC OBSTRUCTIVE PULMONARY DISEASE, UNSPECIFIED Comment: No signs of exacerbation. Continue inhaler/neb regimen. (4) DM type 2 (diabetes mellitus, type 2) Current Visit: No Status: Chronic Priority: Medium Comment: Sugars are under fair control. Continue current medication regimen. (5) HTN (hypertension) Current Visit: No Status: Chronic Code(s): I10 - ESSENTIAL (PRIMARY) HYPERTENSION Comment: BP is under good control. outpatient regimen (6) Morbid obesity Current Visit: No Status: Chronic Priority: Medium Code(s): E66.01 - MORBID (SEVERE) OBESITY DUE TO EXCESS CALORIES (7) Schizo affective schizophrenia Current Visit: No Status: Chronic Priority: Medium Code(s): F25.0 - SCHIZOAFFECTIVE DISORDER, BIPOLAR TYPE Comment: Continue home medication regimen. Appreciate psych input (8) Tobacco abuse Current Visit: No Status: Chronic Code(s): Z72.0 - TOBACCO USE SNOMED Code (s): 254180446 Comment: Pt advised to quit smoking and avoid second hand smoke.
[2016-07-21 06:23] LABS: Venous Bicarbonate HCO3 29.8 mmol/L (24-28)
[2016-07-21 06:27] LABS: Hematocrit 37 % (42-52); Hemoglobin 12.4 g/dl (14.0-18.0); Mean Corpuscular HGB Conc 34 g/dl (31-36); Mean Corpuscular Hemoglobin 30 pg (27-31); Mean Corpuscular Volume 88 fL (80-94); Mean Platelet Volume 7 um3 (7.4-10.4); Red Blood Count 4.17 10^6/ul (4.0-5.4); Red Cell Distribution Width 14 % (10.5-15); White Blood Count 8.2 10^3/ul (3.5-10.8)
[2016-07-21 06:45] LABS: BUN/Creatinine Ratio 24.2 (8-20); Calcium 8.9 mg/dL (8.6-10.3); EGFR African American 172.6 (>60); EGFR Non-African American 134.2 (>60); Potassium 4.1 mmol/L (3.5-5.0)
[2016-07-21] MEDS: Mometasone/Formoter 200/5 MDI INH SCH ×2 (08:32→19:31)
[2016-07-21] MEDS: Linagliptin (NF) 5 MG TAB PO SCH (08:53)
[2016-07-21] MEDS: Levothyroxine TAB* 112 MCG TAB PO SCH (08:57)
[2016-07-21] MEDS: Lisinopril TAB* 10 MG PO SCH (08:57)
[2016-07-21] MEDS: Sertraline* 100 MG TAB PO SCH (08:57)
[2016-07-21] MEDS: glipiZIDE TAB* 5 MG PO SCH ×2 (08:57→16:31)
[2016-07-21] MEDS: Rivaroxaban TAB(*) 15 MG PO SCH ×2 (08:57→20:14)
[2016-07-21] MEDS: Furosemide TAB* 20 MG PO SCH (08:57)
--- NOTE | 2016-07-21 12:38 | CONSULT ---
Identification - Patient Identification Reason for Psychiatric Consultation: Other - Thought disorganization -: Patient is a 56 year old, M admitted on 07/20/16. - MHU Identification Hx Psychiatric Hospitalization: Yes History - Objective HPI: 56 y.o. , white male with a chronic history of schizoaffective disorder presents to the hospital with confused, disorganized mentatation and inability to provide coherent history or to care for himself if discharged. Today, he again presents as non-sequitur, disoriented and echololic, although pleasant. He knows that he is in [place], which is an improvement over yesterday, but other orienting questions result in confabulatory responses. He has no recollection of our conversation yesterday. Lab Results: Laboratory Tests 07/21/16 07/21/16 07/21/16 05:46 05:46 06:11 WBC 8.2 RBC 4.17 Hgb 12.4 L Hct 37 L MCV 88 MCH 30 MCHC 34 RDW 14 Plt Count 179 MPV 7 L Neut % (Auto) 70.3 Lymph % (Auto) 19.8 L [place] % (Auto) 7.0 Eos % (Auto) 2.5 Baso % (Auto) 0.4 Absolute Neuts (auto) 5.8 Absolute Lymphs (auto) 1.6 Absolute Monos (auto) 0.6 Absolute Eos (auto) 0.2 Absolute Basos (auto) 0 Absolute Nucleated RBC 0.01 Nucleated RBC % 0.1 VBG pH 7.39 VBG pCO2 54 H VBG pO2 65 H VBG HCO3 29.8 H VBG O2 Saturation 95.4 H VBG Base Excess 6.4 H Sodium 135 Potassium 4.1 Chloride 101 Carbon Dioxide 29 Anion Gap 5 BUN 15 Creatinine 0.62 L Est GFR ( Amer) 172.6 Est GFR (Non-Af Amer) 134.2 BUN/Creatinine Ratio 24.2 H Glucose 159 H Calcium 8.9 Exam Appearance: Obese Hygiene: Normal Grooming: Disheveled Psychomotor Activities: Normal Exhibits Abnormal Movement: No Attitude and Relatedness: Psychotically Related Eye Contact: Fair - Speech Quality: Unpressured Latencies: Normal Quantity: Copious Patient's Decription of Mood: "Okay" Observed Affect: Fair Affect Consistent with: Euthymia Patient's Thought Process: Disorganized, Loose Associations Thought Content: No Passive Wish, No Suicidal Planning, No Homicidal Ideation, No Paranoid Ideation Experiencing Hallucinations: No, Sensorium is Clear Type of Hallucinations: Visual: No, Auditory: No, Command: No Level of Consciousness: Alert Orientation: No Intact, No Orientated to Time, No Orientated to Place, No Orientated to Person Impulse Control: Poor Insight and Judgement: Impaired Impression - Impression Clinical Impression: 56 y.o. 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 According to the clinicians at [facility], who have worked with him for years, this is not a typical psychiatric presentation for him, which would point to a delirium picture. Although he does have an active PE, his vitals and blood work are mostly within the normal limits. He does have some equivocal findings on his CXR, which the primary team is aware of. 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 Merits Inpatient Hospitalization: No Plan - Treatment Plan Treatment Plan: The patient remains psychotic, which is likely secondary to a medical etiology. I have discussed the case with Dr. Mariscal who is pursuing medical causes for encephalopathy. We have started fluphenazine 5mg PO q6h prn for confusion, as he is allergic to haldol. I note that he is already receiving his scheduled oral olanzapine and yesterday received his monthly Invega Sustenna shot. He would not be a candidate for psychiatric inpatient transfer as delirium tends to be a relative contraindication for milieu treatment. Recommend discontinuation of 1:1 observations in favor of q15min checks. Psychiatry will continue to follow closely. Continued Medication Management: Different Medication Medications: Current Medications Acetaminophen (Tylenol Tab*) 650 mg PO Q4H PRN PRN Reason: FEVER/PAIN Albuterol (Ventolin Hfa Inhaler*) 2 puff INH Q4H PRN PRN Reason: SHORTNESS OF BREATH Fluphenazine HCl (Prolixin Tab*) 5 mg PO Q6H PRN PRN Reason: CONFUSION Furosemide (Lasix Tab*) 20 mg PO DAILY [facility] Last Admin: 07/21/16 08:57 Dose: 20 mg Glipizide (Glucotrol Tab*) 5 mg PO BID [facility] Last Admin: 07/21/16 08:57 Dose: 5 mg Levothyroxine Sodium (Synthroid Tab*) 112 mcg PO DAILY [facility] Last Admin: 07/21/16 08:57 Dose: 112 mcg Linagliptin (Tradjenta (Nf)) 5 mg PO DAILY [facility] Last Admin: 07/21/16 08:53 Dose: Not Given Lisinopril (Prinivil Tab*) 10 mg PO DAILY [facility] Last Admin: 07/21/16 08:57 Dose: 10 mg Mometasone Furoate/Formoterol Fumar (Dulera 200/5 Mdi*) 2 puff INH BID [facility] Last Admin: 07/21/16 08:32 Dose: 2 puff Nicotine (Nicotine Inhaler*) 10 mg INH Q2H PRN PRN Reason: CRAVING Olanzapine (Zyprexa Tab*) 20 mg PO BEDTIME [facility] Last Admin: 07/20/16 21:32 Dose: 20 mg Ondansetron HCl (Zofran Inj*) 4 mg IV Q4H PRN PRN Reason: NAUSEA/VOMITING Paliperidone Palmitate (Invega Sustenna*) 156 mg IM Q30D [facility] Last Admin: 07/19/16 21:03 Dose: 156 mg Rivaroxaban (Xarelto(*)) 15 mg PO BID [facility] Last Admin: 07/21/16 08:57 Dose: 15 mg Sertraline HCl (Zoloft*) 200 mg PO DAILY [facility] Last Admin: 07/21/16 08:57 Dose: 200 mg Trazodone HCl (Desyrel Tab*) 50 mg PO BEDTIME PRN PRN Reason: SLEEP
[2016-07-21 17:19] LABS: C Reactive Protein 9.66 mg/L (< 5.00)
[2016-07-21 18:00] LABS: Erythrocyte Sed Rate 29 mm/Hr (0-20)
[2016-07-21] MEDS: OLANzapine TAB* 10 MG PO SCH (20:14)
--- NOTE | 2016-07-21 20:42 | PN ---
Subjective Date of Service: 07/21/16 Interval History: still about the same makes no sense while speaking can stand independently and walk without difficulty, but very impaired cognition. speech is fluent, and attention is perfect, but thoughts are nonsensical and without logic no complaints eating well surveilling for medical explanation. Family History: Unchanged from Admission Social History: Unchanged from Admission Past Medical History: Unchanged from Admission Objective Active Medications: . Acetaminophen (Tylenol Tab*) 650 mg PO Q4H PRN PRN Reason: FEVER/PAIN Albuterol (Ventolin Hfa Inhaler*) 2 puff INH Q4H PRN PRN Reason: SHORTNESS OF BREATH Fluphenazine HCl (Prolixin Tab*) 5 mg PO Q6H PRN PRN Reason: CONFUSION Furosemide (Lasix Tab*) 20 mg PO DAILY [facility] Last Admin: 07/21/16 08:57 Dose: 20 mg Glipizide (Glucotrol Tab*) 5 mg PO BID [facility] Last Admin: 07/21/16 16:31 Dose: 5 mg Levothyroxine Sodium (Synthroid Tab*) 112 mcg PO DAILY [facility] Last Admin: 07/21/16 08:57 Dose: 112 mcg Linagliptin (Tradjenta (Nf)) 5 mg PO DAILY [facility] Last Admin: 07/21/16 08:53 Dose: Not Given Lisinopril (Prinivil Tab*) 10 mg PO DAILY [facility] Last Admin: 07/21/16 08:57 Dose: 10 mg Mometasone Furoate/Formoterol Fumar (Dulera 200/5 Mdi*) 2 puff INH BID [facility] Last Admin: 07/21/16 19:31 Dose: 2 puff Nicotine (Nicotine Inhaler*) 10 mg INH Q2H PRN PRN Reason: CRAVING Olanzapine (Zyprexa Tab*) 20 mg PO BEDTIME [facility] Last Admin: 07/21/16 20:14 Dose: 20 mg Ondansetron HCl (Zofran Inj*) 4 mg IV Q4H PRN PRN Reason: NAUSEA/VOMITING Paliperidone Palmitate (Invega Sustenna*) 156 mg IM Q30D [facility] Last Admin: 07/19/16 21:03 Dose: 156 mg Rivaroxaban (Xarelto(*)) 15 mg PO BID [facility] Last Admin: 07/21/16 20:14 Dose: 15 mg Sertraline HCl (Zoloft*) 200 mg PO DAILY [facility] Last Admin: 07/21/16 08:57 Dose: 200 mg Trazodone HCl (Desyrel Tab*) 50 mg PO BEDTIME PRN PRN Reason: SLEEP . Vital Signs 07/20/16 07/21/16 07/21/16 23:44 04:12 04:53 Temperature 98.0 F 98.3 F Pulse Rate 86 80 Respiratory 20 18 Rate Blood Pressure 105/47 133/56 122/53 (mmHg) O2 Sat by Pulse 93 94 Oximetry 07/21/16 07/21/16 07/21/16 08:00 08:13 08:34 Temperature 98.4 F Pulse Rate 87 70 Respiratory 16 16 14 Rate Blood Pressure 151/79 (mmHg) O2 Sat by Pulse 94 Oximetry Oxygen Devices in Use Now: None Appearance: dishevelled Ears/Nose/Mouth/Throat: Clear Oropharnyx Neck: Trachea Midline Respiratory: Symmetrical Chest Expansion and Respiratory Effort, - - distant breath sounds Cardiovascular: RRR Abdominal: - - obese, S, NT Lymphatic: No Cervical Adenopathy Extremities: No Edema Skin: No Rash or Ulcers Neurological: NL Sensation, NL Gait, - - seemingly delerius vs psychotic. Lines/Tubes/Other Access: Clean, Dry and Intact Peripheral IV Nutrition: Taking PO's Result Diagrams: 07/21/16 05:46 07/21/16 05:46 Assess/Plan/Problems-Billing Assessment: 56 yo man with disorganized thoughts / altered mental status -- which is an unusual manifestation of his schizophrenia/bipolar disease. At the same time, no clear medical explanation for his presentation either. Continuing with watchful waiting and surveillance for a medical explanation. Providing ongoing supportive care. - Patient Problems (1) Altered mental status Current Visit: No Status: Acute Code(s): R41.82 - ALTERED MENTAL STATUS, UNSPECIFIED Comment: - unclear etiology - had resolved quickly in previous admissions; though there was a known acute illnesses (COPD exacerbation and/or PE) - pCO2 ok.this admission..(~50 at admission)..I can't think this would cause decompensation..will recheck 07/22/16 - no increased WBC, fever, electrolyte derangements, etc. - recheck labs 07/22/16 - add B12, RPR, ESR, CRP. - MRI brain w/o contrast (CT was normal) - check NH3 in AM. - will continue to surveil. (2) Pulmonary embolism Current Visit: No Status: Acute Code(s): I26.99 - OTHER PULMONARY EMBOLISM WITHOUT ACUTE COR PULMONALE SNOMED Code(s): 11582529 (3) COPD (chronic obstructive pulmonary disease) Current Visit: No Status: Chronic Priority: High Code(s): J44.9 - CHRONIC OBSTRUCTIVE PULMONARY DISEASE, UNSPECIFIED Comment: No signs of exacerbation. Continue inhaler/neb regimen. (4) DM type 2 (diabetes mellitus, type 2) Current Visit: No Status: Chronic Priority: Medium Comment: Sugars are under fair control. Continue current medication regimen. A1C ~ 7... (5) HTN (hypertension) Current Visit: No Status: Chronic Code(s): I10 - ESSENTIAL (PRIMARY) HYPERTENSION Comment: BP is under good control. outpatient regimen (6) Morbid obesity Current Visit: No Status: Chronic Priority: Medium Code(s): E66.01 - MORBID (SEVERE) OBESITY DUE TO EXCESS CALORIES (7) Schizo affective schizophrenia Current Visit: No Status: Chronic Priority: Medium Code(s): F25.0 - SCHIZOAFFECTIVE DISORDER, BIPOLAR TYPE Comment: Continue home medication regimen. Appreciate psych input (8) Tobacco abuse Current Visit: No Status: Chronic Code(s): Z72.0 - TOBACCO USE
[2016-07-22 05:40] LABS: Venous Bicarbonate HCO3 29.5 mmol/L (24-28)
[2016-07-22 06:02] LABS: Hematocrit 38 % (42-52); Hemoglobin 12.8 g/dl (14.0-18.0); Mean Corpuscular HGB Conc 34 g/dl (31-36); Mean Corpuscular Hemoglobin 30 pg (27-31); Mean Corpuscular Volume 89 fL (80-94); Mean Platelet Volume 7 um3 (7.4-10.4); Red Blood Count 4.28 10^6/ul (4.0-5.4); Red Cell Distribution Width 14 % (10.5-15); White Blood Count 8.6 10^3/ul (3.5-10.8)
[2016-07-22 06:16] LABS: BUN/Creatinine Ratio 20.6 (8-20); Calcium 9.1 mg/dL (8.6-10.3); EGFR African American 169.4 (>60); EGFR Non-African American 131.7 (>60); Potassium 4.3 mmol/L (3.5-5.0)
[2016-07-22] MEDS: Mometasone/Formoter 200/5 MDI INH SCH ×2 (08:38→20:13)
[2016-07-22] MEDS: Furosemide TAB* 20 MG PO SCH (08:39)
[2016-07-22] MEDS: Lisinopril TAB* 10 MG PO SCH (08:39)
[2016-07-22] MEDS: Sertraline* 100 MG TAB PO SCH (08:39)
[2016-07-22] MEDS: Levothyroxine TAB* 112 MCG TAB PO SCH (08:39)
[2016-07-22] MEDS: glipiZIDE TAB* 5 MG PO SCH ×2 (08:39→16:06)
[2016-07-22] MEDS: Rivaroxaban TAB(*) 15 MG PO SCH ×2 (08:39→21:37)
[2016-07-22] MEDS: Linagliptin (NF) 5 MG TAB PO SCH (08:41)
--- NOTE | 2016-07-22 11:50 | PN ---
Subjective Date of Service: 07/22/16 Interval History: No c/o. Patient looking forward to going home. Family History: Unchanged from Admission Social History: Unchanged from Admission Past Medical History: Unchanged from Admission Objective Active Medications: Acetaminophen (Tylenol Tab*) 650 mg PO Q4H PRN PRN Reason: FEVER/PAIN Albuterol (Ventolin Hfa Inhaler*) 2 puff INH Q4H PRN PRN Reason: SHORTNESS OF BREATH Fluphenazine HCl (Prolixin Tab*) 5 mg PO Q6H PRN PRN Reason: CONFUSION Furosemide (Lasix Tab*) 20 mg PO DAILY [facility] Last Admin: 07/22/16 08:39 Dose: 20 mg Glipizide (Glucotrol Tab*) 5 mg PO BID [facility] Last Admin: 07/22/16 08:39 Dose: 5 mg Levothyroxine Sodium (Synthroid Tab*) 112 mcg PO DAILY [facility] Last Admin: 07/22/16 08:39 Dose: 112 mcg Lisinopril (Prinivil Tab*) 10 mg PO DAILY [facility] Last Admin: 07/22/16 08:39 Dose: 10 mg Mometasone Furoate/Formoterol Fumar (Dulera 200/5 Mdi*) 2 puff INH BID [facility] Last Admin: 07/22/16 08:38 Dose: 2 puff Nicotine (Nicotine Inhaler*) 10 mg INH Q2H PRN PRN Reason: CRAVING Olanzapine (Zyprexa Tab*) 20 mg PO BEDTIME [facility] Last Admin: 07/21/16 20:14 Dose: 20 mg Ondansetron HCl (Zofran Inj*) 4 mg IV Q4H PRN PRN Reason: NAUSEA/VOMITING Paliperidone Palmitate (Invega Sustenna*) 156 mg IM Q30D [facility] Last Admin: 07/19/16 21:03 Dose: 156 mg Rivaroxaban (Xarelto(*)) 15 mg PO BID [facility] Last Admin: 07/22/16 08:39 Dose: 15 mg Sertraline HCl (Zoloft*) 200 mg PO DAILY [facility] Last Admin: 07/22/16 08:39 Dose: 200 mg Trazodone HCl (Desyrel Tab*) 50 mg PO BEDTIME PRN PRN Reason: SLEEP Vital Signs 07/21/16 07/21/16 07/21/16 12:26 13:30 15:56 Temperature 97.8 F 99.2 F Pulse Rate 107 73 Respiratory 18 18 Rate Blood Pressure 92/67 118/68 108/51 (mmHg) O2 Sat by Pulse 92 Oximetry 07/21/16 07/21/16 07/21/16 21:02 23:00 23:22 Temperature 98.7 F Pulse Rate 81 80 Respiratory 15 16 18 Rate Blood Pressure 131/56 (mmHg) O2 Sat by Pulse 92 94 Oximetry 07/22/16 07/22/16 07:52 08:00 Temperature 98.0 F Pulse Rate 75 Respiratory 18 18 Rate Blood Pressure 125/62 (mmHg) O2 Sat by Pulse 92 Oximetry Oxygen Devices in Use Now: None Appearance: Alert, in a chair. Sociable. In good spirits. Looks comfortable. Eyes: No Scleral Icterus Neck: NL Appearance and Movements; NL JVP, No Thyroid Enlargement, Masses Respiratory: Symmetrical Chest Expansion and Respiratory Effort, Clear to Auscultation, Clear to Percussion Cardiovascular: NL Sounds; No Murmurs; No JVD, RRR, No Edema, - Extremities: No Edema, No Clubbing, Cyanosis, - Skin: No Rash or Ulcers, No Nodules or Sclerosis Neurological: Alert and Oriented x 3, NL Sensation - Generally answers questions well. Sometimes tangential. Result Diagrams: 07/22/16 05:30 07/22/16 05:30 Additional Lab and Data: Lab Results 07/19/16 07/19/16 07/19/16 Range/Units 01:21 01:21 01:21 WBC 8.7 (3.5-10.8) 10^3/ul RBC 4.15 (4.0-5.4) 10^6/ul Hgb 12.3 L (14.0-18.0) g/dl Hct 36 L (42-52) % MCV 87 (80-94) fL MCH 30 (27-31) pg MCHC 34 (31-36) g/dl RDW 14 (10.5-15) % Plt Count 140 L (150-450) 10^3/ul MPV 8 (7.4-10.4) um3 Neut % (Auto) 75.7 (38-83) % Lymph % (Auto) 12.2 L (25-47) % [place] % (Auto) 10.1 H (1-9) % Eos % (Auto) 1.6 (0-6) % Baso % (Auto) 0.4 (0-2) % Absolute Neuts (auto) 6.6 (1.5-7.7) 10^3/ul Absolute Lymphs (auto) 1.1 (1.0-4.8) 10^3/ul Absolute Monos (auto) 0.9 H (0-0.8) 10^3/ul Absolute Eos (auto) 0.1 (0-0.6) 10^3/ul Absolute Basos (auto) 0 (0-0.2) 10^3/ul Absolute Nucleated RBC 0 10^3/ul Nucleated RBC % 0 Sodium 130 L (133-145) mmol/L Potassium 4.3 (3.5-5.0) mmol/L Chloride 97 L (101-111) mmol/L Carbon Dioxide 26 (22-32) mmol/L Anion Gap 7 (2-11) mmol/L BUN 18 (6-24) mg/dL Creatinine 0.68 (0.67-1.17) mg/dL Est GFR ( Amer) 155.1 (>60) Est GFR (Non-Af Amer) 120.6 (>60) BUN/Creatinine Ratio 26.5 H (8-20) Glucose 215 H (70-100) mg/dL Calcium 9.0 (8.6-10.3) mg/dL Total Bilirubin 0.30 (0.2-1.0) mg/dL AST 18 (13-39) U/L ALT 28 (7-52) U/L Alkaline Phosphatase 45 (34-104) U/L Total Protein 6.5 (6.4-8.9) g/dL Albumin 3.6 (3.2-5.2) g/dL Globulin 2.9 (2-4) g/dL Albumin/Globulin Ratio 1.2 (1-3) Urine Color Yellow Urine Appearance Clear Urine pH 5.0 (5-9) Ur Specific [place] 1.018 (1.010-1.030) Urine Protein Negative (Negative) Urine Ketones Negative (Negative) Urine Blood 1+ H (Negative) Urine Nitrate Negative (Negative) Urine Bilirubin Negative (Negative) Urine Urobilinogen Negative (Negative) Ur Leukocyte Esterase Negative (Negative) Urine WBC (Auto) Absent (Absent) Urine RBC (Auto) 1+(3-5/hpf) H (Absent) Ur Squamous Epith Cells Present H (Absent) Urine Bacteria Absent (Absent) Urine Glucose 1+(50 mg/dl) H (Negative) Salicylates < 2.50 (<30) mg/dL Urine Opiates Screen (None Detect) Acetaminophen < 15 mcg/mL Ur Barbiturates Screen (None Detect) Ur Phencyclidine Scrn (None Detect) Ur Amphetamines Screen (None Detect) U Benzodiazepines Scrn (None Detect) Urine Cocaine Screen (None Detect) U Cannabinoids Screen (None Detect) Serum Alcohol < 10 (<10) mg/dL 07/19/16 Range/Units 01:21 WBC (3.5-10.8) 10^3/ul RBC (4.0-5.4) 10^6/ul Hgb (14.0-18.0) g/dl Hct (42-52) % MCV (80-94) fL MCH (27-31) pg MCHC (31-36) g/dl RDW (10.5-15) % Plt Count (150-450) 10^3/ul MPV (7.4-10.4) um3 Neut % (Auto) (38-83) % Lymph % (Auto) (25-47) % [place] % (Auto) (1-9) % Eos % (Auto) (0-6) % Baso % (Auto) (0-2) % Absolute Neuts (auto) (1.5-7.7) 10^3/ul Absolute Lymphs (auto) (1.0-4.8) 10^3/ul Absolute Monos (auto) (0-0.8) 10^3/ul Absolute Eos (auto) (0-0.6) 10^3/ul Absolute Basos (auto) (0-0.2) 10^3/ul Absolute Nucleated RBC 10^3/ul Nucleated RBC % Sodium (133-145) mmol/L Potassium (3.5-5.0) mmol/L Chloride (101-111) mmol/L Carbon Dioxide (22-32) mmol/L Anion Gap (2-11) mmol/L BUN (6-24) mg/dL Creatinine (0.67-1.17) mg/dL Est GFR ( Amer) (>60) Est GFR (Non-Af Amer) (>60) BUN/Creatinine Ratio (8-20) Glucose (70-100) mg/dL Calcium (8.6-10.3) mg/dL Total Bilirubin (0.2-1.0) mg/dL AST (13-39) U/L ALT (7-52) U/L Alkaline Phosphatase (34-104) U/L Total Protein (6.4-8.9) g/dL Albumin (3.2-5.2) g/dL Globulin (2-4) g/dL Albumin/Globulin Ratio (1-3) Urine Color Urine Appearance Urine pH (5-9) Ur Specific [place] (1.010-1.030) Urine Protein (Negative) Urine Ketones (Negative) Urine Blood (Negative) Urine Nitrate (Negative) Urine Bilirubin (Negative) Urine Urobilinogen (Negative) Ur Leukocyte Esterase (Negative) Urine WBC (Auto) (Absent) Urine RBC (Auto) (Absent) Ur Squamous Epith Cells (Absent) Urine Bacteria (Absent) Urine Glucose (Negative) Salicylates (<30) mg/dL Urine Opiates Screen None detected (None Detect) Acetaminophen mcg/mL Ur Barbiturates Screen None detected (None Detect) Ur Phencyclidine Scrn None detected (None Detect) Ur Amphetamines Screen None detected (None Detect) U Benzodiazepines Scrn None detected (None Detect) Urine Cocaine Screen None detected (None Detect) U Cannabinoids Screen None detected (None Detect) Serum Alcohol (<10) mg/dL Assess/Plan/Problems-Billing Assessment: 56 yo man with disorganized thoughts / altered mental status -- which is an unusual manifestation of his schizophrenia/bipolar disease. At the same time, no clear medical explanation for his presentation either. Continuing with watchful waiting and surveillance for a medical explanation. Providing ongoing supportive care. - Patient Problems (1) Altered mental status Current Visit: No Status: Acute Code(s): R41.82 - ALTERED MENTAL STATUS, UNSPECIFIED SNOMED Code(s): 683711328 Comment: Much improved 2/4. - unclear etiology, ? medication non-compliance. - had resolved quickly in previous admissions; though there was a known acute illnesses (COPD exacerbation and/or PE) - methylmalonic acid level ordered. RPR pending. ESR 29, CRP 9.66. NH3 52 ( high nl). - MRI brain w/o contrast pending. (2) Pulmonary embolism Current Visit: No Status: Acute Code(s): I26.99 - OTHER PULMONARY EMBOLISM WITHOUT ACUTE COR PULMONALE SNOMED Code(s): 54439977 Comment: Rivaroxaban 15 mg bid, change to 20 mg daily 08/03. (3) Schizo affective schizophrenia Current Visit: No Status: Chronic Priority: Medium Code(s): F25.0 - SCHIZOAFFECTIVE DISORDER, BIPOLAR TYPE SNOMED Code(s): 188434785 Comment: Improved. Continue home medication regimen. Appreciate psych input (4) Morbid obesity Current Visit: No Status: Chronic Priority: Medium Code(s): E66.01 - MORBID (SEVERE) OBESITY DUE TO EXCESS CALORIES SNOMED Code(s): 702375373 Comment: BMI 51.2. (5) Constipation Current Visit: Yes Status: Acute Code(s): K59.00 - CONSTIPATION, UNSPECIFIED SNOMED Code(s): 16405263 Comment: PEG 17 gm bid start 07/22. (6) DM type 2 (diabetes mellitus, type 2) Current Visit: No Status: Chronic Priority: Medium Comment: Linagliptin not available, doing OK on glipizide alone for now. (7) Hypothyroidism Current Visit: No Status: Acute Code(s): E03.9 - HYPOTHYROIDISM, UNSPECIFIED SNOMED Code(s): 52089067 Comment: TSH wnl 07/19/16.
[2016-07-22] MEDS ORDERED: Dextrose 50% Syringe 50 ML* 25 GM/50 ML SYRINGE IV PUSH PRN (11:58)
[2016-07-22] MEDS: Polyethylene Glycol 3350* 17 GM PACKET PO SCH ×2 (12:08→21:39)
--- NOTE | 2016-07-22 14:22 | CONSULT ---
Identification - Patient Identification Reason for Psychiatric Consultation: Other - Thought disorganization -: Patient is a 56 year old, M admitted on 07/20/16. - MHU Identification Hx Psychiatric Hospitalization: Yes History - Objective HPI: 56 y.o. , white male with a chronic history of schizoaffective disorder presents to the hospital with confused, disorganized mentatation and inability to provide coherent history or to care for himself if discharged. Today, he remains thought-disorganized and unable to participate in treatment or discharge planning. "I don't know why I'm here. I wanted to put a ring on it. All she needs to do is stick out her finger." Lab Results: Laboratory Tests 07/21/16 07/21/16 07/21/16 05:46 05:46 05:46 WBC 8.2 RBC 4.17 Hgb 12.4 L Hct 37 L MCV 88 MCH 30 MCHC 34 RDW 14 Plt Count 179 MPV 7 L Neut % (Auto) 70.3 Lymph % (Auto) 19.8 L [place] % (Auto) 7.0 Eos % (Auto) 2.5 Baso % (Auto) 0.4 Absolute Neuts (auto) 5.8 Absolute Lymphs (auto) 1.6 Absolute Monos (auto) 0.6 Absolute Eos (auto) 0.2 Absolute Basos (auto) 0 Absolute Nucleated RBC 0.01 Nucleated RBC % 0.1 ESR 29 H VBG pH VBG pCO2 VBG pO2 VBG HCO3 VBG O2 Saturation VBG Base Excess Sodium 135 Potassium 4.1 Chloride 101 Carbon Dioxide 29 Anion Gap 5 BUN 15 Creatinine 0.62 L Est GFR ( Amer) 172.6 Est GFR (Non-Af Amer) 134.2 BUN/Creatinine Ratio 24.2 H Glucose 159 H POC Glucose (mg/dL) Hemoglobin A1c 7.4 H Calcium 8.9 Ammonia C-Reactive Protein 9.66 H Vitamin B12 232 07/21/16 07/21/16 07/22/16 06:11 16:38 05:29 WBC RBC Hgb Hct MCV MCH MCHC RDW Plt Count MPV Neut % (Auto) Lymph % (Auto) [place] % (Auto) Eos % (Auto) Baso % (Auto) Absolute Neuts (auto) Absolute Lymphs (auto) Absolute Monos (auto) Absolute Eos (auto) Absolute Basos (auto) Absolute Nucleated RBC Nucleated RBC % ESR VBG pH 7.39 VBG pCO2 54 H VBG pO2 65 H VBG HCO3 29.8 H VBG O2 Saturation 95.4 H VBG Base Excess 6.4 H Sodium Potassium Chloride Carbon Dioxide Anion Gap BUN Creatinine Est GFR ( Amer) Est GFR (Non-Af Amer) BUN/Creatinine Ratio Glucose POC Glucose (mg/dL) 139 H Hemoglobin A1c Calcium Ammonia 52 C-Reactive Protein Vitamin B12 07/22/16 07/22/16 07/22/16 05:29 05:30 05:30 WBC 8.6 RBC 4.28 Hgb 12.8 L Hct 38 L MCV 89 MCH 30 MCHC 34 RDW 14 Plt Count 207 MPV 7 L Neut % (Auto) 72.0 Lymph % (Auto) 20.8 L [place] % (Auto) 4.4 Eos % (Auto) 1.8 Baso % (Auto) 1.0 Absolute Neuts (auto) 6.2 Absolute Lymphs (auto) 1.8 Absolute Monos (auto) 0.4 Absolute Eos (auto) 0.2 Absolute Basos (auto) 0.1 Absolute Nucleated RBC 0.01 Nucleated RBC % 0.1 ESR VBG pH 7.43 VBG pCO2 47 VBG pO2 75 H VBG HCO3 29.5 H VBG O2 Saturation 97.2 H VBG Base Excess 5.9 H Sodium 135 Potassium 4.3 Chloride 101 Carbon Dioxide 29 Anion Gap 5 BUN 13 Creatinine 0.63 L Est GFR ( Amer) 169.4 Est GFR (Non-Af Amer) 131.7 BUN/Creatinine Ratio 20.6 H Glucose 159 H POC Glucose (mg/dL) Hemoglobin A1c Calcium 9.1 Ammonia C-Reactive Protein Vitamin B12 07/22/16 12:10 WBC RBC Hgb Hct MCV MCH MCHC RDW Plt Count MPV Neut % (Auto) Lymph % (Auto) [place] % (Auto) Eos % (Auto) Baso % (Auto) Absolute Neuts (auto) Absolute Lymphs (auto) Absolute Monos (auto) Absolute Eos (auto) Absolute Basos (auto) Absolute Nucleated RBC Nucleated RBC % ESR VBG pH VBG pCO2 VBG pO2 VBG HCO3 VBG O2 Saturation VBG Base Excess Sodium Potassium Chloride Carbon Dioxide Anion Gap BUN Creatinine Est GFR ( Amer) Est GFR (Non-Af Amer) BUN/Creatinine Ratio Glucose POC Glucose (mg/dL) 138 H Hemoglobin A1c Calcium Ammonia C-Reactive Protein Vitamin B12 Exam Appearance: Obese Hygiene: Normal Grooming: Disheveled Psychomotor Activities: Normal Exhibits Abnormal Movement: No Attitude and Relatedness: Psychotically Related Eye Contact: Fair - Speech Quality: Unpressured Latencies: Normal Quantity: Copious Patient's Decription of Mood: "Okay" Observed Affect: Fair Affect Consistent with: Euthymia Patient's Thought Process: Disorganized, Loose Associations Thought Content: No Passive Wish, No Suicidal Planning, No Homicidal Ideation, No Paranoid Ideation Experiencing Hallucinations: No, Sensorium is Clear Type of Hallucinations: Visual: No, Auditory: No, Command: No Level of Consciousness: Alert Orientation: No Intact, No Orientated to Time, No Orientated to Place, No Orientated to Person Impulse Control: Poor Insight and Judgement: Impaired Impression - Impression Clinical Impression: 56 y.o. 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 According to the clinicians at [facility], who have worked with him for years, this is not a typical psychiatric presentation for him, which would point to a delirium picture. Although he does have an active PE, his vitals and blood work are mostly within the normal limits. He does have some equivocal findings on his CXR, which the primary team is aware of. 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 Plan - Treatment Plan Treatment Plan: The patient remains psychotic, which is likely secondary to a medical etiology. I have discussed the case with Dr. Mariscal who is pursuing medical causes for encephalopathy. We have started fluphenazine 5mg PO q6h prn for confusion, as he is allergic to haldol. I note that he is already receiving his scheduled oral olanzapine and yesterday received his monthly Invega Sustenna shot. He would not be a candidate for psychiatric inpatient transfer as delirium tends to be a relative contraindication for milieu treatment. Recommend discontinuation of 1:1 observations in favor of q15min checks. Psychiatry will continue to follow closely. Agree with plan to order MRI of brain. Continued Medication Management: Continue Outpt Medication Medications: Current Medications Acetaminophen (Tylenol Tab*) 650 mg PO Q4H PRN PRN Reason: FEVER/PAIN Albuterol (Ventolin Hfa Inhaler*) 2 puff INH Q4H PRN PRN Reason: SHORTNESS OF BREATH Dextrose (D50w Syringe 50 Ml*) 12.5 gm IV PUSH .FOR FS < 60 - SS PRN PRN Reason: FS < 60 Fluphenazine HCl (Prolixin Tab*) 5 mg PO Q6H PRN PRN Reason: CONFUSION Furosemide (Lasix Tab*) 20 mg PO DAILY [facility] Last Admin: 07/22/16 08:39 Dose: 20 mg Glipizide (Glucotrol Tab*) 5 mg PO BID [facility] Last Admin: 07/22/16 08:39 Dose: 5 mg Insulin Human Lispro (Humalog*) 0 units SUBCUT [facility] PRN Reason: Protocol Levothyroxine Sodium (Synthroid Tab*) 112 mcg PO DAILY [facility] Last Admin: 07/22/16 08:39 Dose: 112 mcg Lisinopril (Prinivil Tab*) 10 mg PO DAILY [facility] Last Admin: 07/22/16 08:39 Dose: 10 mg Mometasone Furoate/Formoterol Fumar (Dulera 200/5 Mdi*) 2 puff INH BID [facility] Last Admin: 07/22/16 08:38 Dose: 2 puff Nicotine (Nicotine Inhaler*) 10 mg INH Q2H PRN PRN Reason: CRAVING Olanzapine (Zyprexa Tab*) 20 mg PO BEDTIME [facility] Last Admin: 07/21/16 20:14 Dose: 20 mg Ondansetron HCl (Zofran Inj*) 4 mg IV Q4H PRN PRN Reason: NAUSEA/VOMITING Paliperidone Palmitate (Invega Sustenna*) 156 mg IM Q30D [facility] Last Admin: 07/19/16 21:03 Dose: 156 mg Polyethylene Glycol/Electrolytes (Miralax*) 17 gm PO 0800,2100 [facility] Last Admin: 07/22/16 12:08 Dose: 17 gm Rivaroxaban (Xarelto(*)) 15 mg PO BID [facility] Last Admin: 07/22/16 08:39 Dose: 15 mg Sertraline HCl (Zoloft*) 200 mg PO DAILY [facility] Last Admin: 07/22/16 08:39 Dose: 200 mg Trazodone HCl (Desyrel Tab*) 50 mg PO BEDTIME PRN PRN Reason: SLEEP
[2016-07-22] MEDS: Insulin LISPRO* 1 UNITS UNIT SUBCUT SCH (16:04)
[2016-07-22] MEDS: OLANzapine TAB* 10 MG PO SCH (21:38)
[2016-07-22] MEDS: traZODone TAB* 50 MG TAB PO PRN (21:38)
[2016-07-23] MEDS: Sertraline* 100 MG TAB PO SCH (08:53)
[2016-07-23] MEDS: Furosemide TAB* 20 MG PO SCH (08:53)
[2016-07-23] MEDS: Lisinopril TAB* 10 MG PO SCH (08:53)
[2016-07-23] MEDS: Acetaminophen TAB* 325 MG PO PRN ×2 (08:53→21:17)
[2016-07-23] MEDS: Polyethylene Glycol 3350* 17 GM PACKET PO SCH ×2 (08:54→21:18)
[2016-07-23] MEDS: Levothyroxine TAB* 112 MCG TAB PO SCH (08:54)
[2016-07-23] MEDS: glipiZIDE TAB* 5 MG PO SCH ×2 (08:56→17:57)
[2016-07-23] MEDS: Insulin LISPRO* 1 UNITS UNIT SUBCUT SCH ×4 (08:57→18:06)
[2016-07-23] MEDS: Rivaroxaban TAB(*) 15 MG PO SCH ×2 (09:00→21:17)
[2016-07-23] MEDS: Mometasone/Formoter 200/5 MDI INH SCH ×2 (09:46→21:02)
--- NOTE | 2016-07-23 17:19 | PN ---
Subjective Date of Service: 07/23/16 Interval History: No new c/o. Patient reports nl BM. Family History: Unchanged from Admission Social History: Unchanged from Admission Past Medical History: Unchanged from Admission Objective Active Medications: Acetaminophen (Tylenol Tab*) 650 mg PO Q4H PRN PRN Reason: FEVER/PAIN Last Admin: 07/23/16 08:53 Dose: 650 mg Albuterol (Ventolin Hfa Inhaler*) 2 puff INH Q4H PRN PRN Reason: SHORTNESS OF BREATH Dextrose (D50w Syringe 50 Ml*) 12.5 gm IV PUSH .FOR FS < 60 - SS PRN PRN Reason: FS < 60 Fluphenazine HCl (Prolixin Tab*) 5 mg PO Q6H PRN PRN Reason: CONFUSION Furosemide (Lasix Tab*) 20 mg PO DAILY [facility] Last Admin: 07/23/16 08:53 Dose: 20 mg Glipizide (Glucotrol Tab*) 5 mg PO BID [facility] Last Admin: 07/23/16 08:56 Dose: 5 mg Insulin Human Lispro (Humalog*) 0 units SUBCUT [facility] PRN Reason: Protocol Last Admin: 07/23/16 08:57 Dose: 3 unit Levothyroxine Sodium (Synthroid Tab*) 112 mcg PO DAILY [facility] Last Admin: 07/23/16 08:54 Dose: 112 mcg Lisinopril (Prinivil Tab*) 10 mg PO DAILY [facility] Last Admin: 07/23/16 08:53 Dose: 10 mg Mometasone Furoate/Formoterol Fumar (Dulera 200/5 Mdi*) 2 puff INH BID [facility] Last Admin: 07/23/16 09:46 Dose: 2 puff Nicotine (Nicotine Inhaler*) 10 mg INH Q2H PRN PRN Reason: CRAVING Olanzapine (Zyprexa Tab*) 20 mg PO BEDTIME [facility] Last Admin: 07/22/16 21:38 Dose: 20 mg Ondansetron HCl (Zofran Inj*) 4 mg IV Q4H PRN PRN Reason: NAUSEA/VOMITING Paliperidone Palmitate (Invega Sustenna*) 156 mg IM Q30D [facility] Last Admin: 07/19/16 21:03 Dose: 156 mg Polyethylene Glycol/Electrolytes (Miralax*) 17 gm PO 0800,2100 [facility] Last Admin: 07/23/16 08:54 Dose: 17 gm Rivaroxaban (Xarelto(*)) 15 mg PO BID [facility] Last Admin: 07/23/16 09:00 Dose: 15 mg Sertraline HCl (Zoloft*) 200 mg PO DAILY [facility] Last Admin: 07/23/16 08:53 Dose: 200 mg Trazodone HCl (Desyrel Tab*) 50 mg PO BEDTIME PRN PRN Reason: SLEEP Last Admin: 07/22/16 21:38 Dose: 50 mg Vital Signs 07/22/16 07/22/16 07/23/16 20:00 23:38 08:46 Temperature 97.7 F 98.0 F Pulse Rate 84 74 Respiratory 16 16 20 Rate Blood Pressure 137/64 96/43 (mmHg) O2 Sat by Pulse 91 92 Oximetry 07/23/16 09:47 Temperature Pulse Rate 104 Respiratory 16 Rate Blood Pressure (mmHg) O2 Sat by Pulse 94 Oximetry Oxygen Devices in Use Now: None Appearance: Alert, in a chair. In good spirits. Looks comfortable. Eyes: No Scleral Icterus Ears/Nose/Mouth/Throat: Clear Oropharnyx, Mucous Membranes Moist Neck: NL Appearance and Movements; NL JVP, No Thyroid Enlargement, Masses Respiratory: Symmetrical Chest Expansion and Respiratory Effort, Clear to Auscultation, Clear to Percussion Cardiovascular: NL Sounds; No Murmurs; No JVD, RRR, No Edema, - Extremities: No Edema, No Clubbing, Cyanosis, - Skin: No Rash or Ulcers, No Nodules or Sclerosis, - Neurological: Alert and Oriented x 3, NL Sensation Result Diagrams: 07/22/16 05:30 07/22/16 05:30 Additional Lab and Data: Lab Results 07/19/16 07/19/16 07/19/16 Range/Units 01:21 01:21 01:21 WBC 8.7 (3.5-10.8) 10^3/ul RBC 4.15 (4.0-5.4) 10^6/ul Hgb 12.3 L (14.0-18.0) g/dl Hct 36 L (42-52) % MCV 87 (80-94) fL MCH 30 (27-31) pg MCHC 34 (31-36) g/dl RDW 14 (10.5-15) % Plt Count 140 L (150-450) 10^3/ul MPV 8 (7.4-10.4) um3 Neut % (Auto) 75.7 (38-83) % Lymph % (Auto) 12.2 L (25-47) % [place] % (Auto) 10.1 H (1-9) % Eos % (Auto) 1.6 (0-6) % Baso % (Auto) 0.4 (0-2) % Absolute Neuts (auto) 6.6 (1.5-7.7) 10^3/ul Absolute Lymphs (auto) 1.1 (1.0-4.8) 10^3/ul Absolute Monos (auto) 0.9 H (0-0.8) 10^3/ul Absolute Eos (auto) 0.1 (0-0.6) 10^3/ul Absolute Basos (auto) 0 (0-0.2) 10^3/ul Absolute Nucleated RBC 0 10^3/ul Nucleated RBC % 0 Sodium 130 L (133-145) mmol/L Potassium 4.3 (3.5-5.0) mmol/L Chloride 97 L (101-111) mmol/L Carbon Dioxide 26 (22-32) mmol/L Anion Gap 7 (2-11) mmol/L BUN 18 (6-24) mg/dL Creatinine 0.68 (0.67-1.17) mg/dL Est GFR ( Amer) 155.1 (>60) Est GFR (Non-Af Amer) 120.6 (>60) BUN/Creatinine Ratio 26.5 H (8-20) Glucose 215 H (70-100) mg/dL Calcium 9.0 (8.6-10.3) mg/dL Total Bilirubin 0.30 (0.2-1.0) mg/dL AST 18 (13-39) U/L ALT 28 (7-52) U/L Alkaline Phosphatase 45 (34-104) U/L Total Protein 6.5 (6.4-8.9) g/dL Albumin 3.6 (3.2-5.2) g/dL Globulin 2.9 (2-4) g/dL Albumin/Globulin Ratio 1.2 (1-3) Urine Color Yellow Urine Appearance Clear Urine pH 5.0 (5-9) Ur Specific [place] 1.018 (1.010-1.030) Urine Protein Negative (Negative) Urine Ketones Negative (Negative) Urine Blood 1+ H (Negative) Urine Nitrate Negative (Negative) Urine Bilirubin Negative (Negative) Urine Urobilinogen Negative (Negative) Ur Leukocyte Esterase Negative (Negative) Urine WBC (Auto) Absent (Absent) Urine RBC (Auto) 1+(3-5/hpf) H (Absent) Ur Squamous Epith Cells Present H (Absent) Urine Bacteria Absent (Absent) Urine Glucose 1+(50 mg/dl) H (Negative) Salicylates < 2.50 (<30) mg/dL Urine Opiates Screen (None Detect) Acetaminophen < 15 mcg/mL Ur Barbiturates Screen (None Detect) Ur Phencyclidine Scrn (None Detect) Ur Amphetamines Screen (None Detect) U Benzodiazepines Scrn (None Detect) Urine Cocaine Screen (None Detect) U Cannabinoids Screen (None Detect) Serum Alcohol < 10 (<10) mg/dL 07/19/16 Range/Units 01:21 WBC (3.5-10.8) 10^3/ul RBC (4.0-5.4) 10^6/ul Hgb (14.0-18.0) g/dl Hct (42-52) % MCV (80-94) fL MCH (27-31) pg MCHC (31-36) g/dl RDW (10.5-15) % Plt Count (150-450) 10^3/ul MPV (7.4-10.4) um3 Neut % (Auto) (38-83) % Lymph % (Auto) (25-47) % [place] % (Auto) (1-9) % Eos % (Auto) (0-6) % Baso % (Auto) (0-2) % Absolute Neuts (auto) (1.5-7.7) 10^3/ul Absolute Lymphs (auto) (1.0-4.8) 10^3/ul Absolute Monos (auto) (0-0.8) 10^3/ul Absolute Eos (auto) (0-0.6) 10^3/ul Absolute Basos (auto) (0-0.2) 10^3/ul Absolute Nucleated RBC 10^3/ul Nucleated RBC % Sodium (133-145) mmol/L Potassium (3.5-5.0) mmol/L Chloride (101-111) mmol/L Carbon Dioxide (22-32) mmol/L Anion Gap (2-11) mmol/L BUN (6-24) mg/dL Creatinine (0.67-1.17) mg/dL Est GFR ( Amer) (>60) Est GFR (Non-Af Amer) (>60) BUN/Creatinine Ratio (8-20) Glucose (70-100) mg/dL Calcium (8.6-10.3) mg/dL Total Bilirubin (0.2-1.0) mg/dL AST (13-39) U/L ALT (7-52) U/L Alkaline Phosphatase (34-104) U/L Total Protein (6.4-8.9) g/dL Albumin (3.2-5.2) g/dL Globulin (2-4) g/dL Albumin/Globulin Ratio (1-3) Urine Color Urine Appearance Urine pH (5-9) Ur Specific [place] (1.010-1.030) Urine Protein (Negative) Urine Ketones (Negative) Urine Blood (Negative) Urine Nitrate (Negative) Urine Bilirubin (Negative) Urine Urobilinogen (Negative) Ur Leukocyte Esterase (Negative) Urine WBC (Auto) (Absent) Urine RBC (Auto) (Absent) Ur Squamous Epith Cells (Absent) Urine Bacteria (Absent) Urine Glucose (Negative) Salicylates (<30) mg/dL Urine Opiates Screen None detected (None Detect) Acetaminophen mcg/mL Ur Barbiturates Screen None detected (None Detect) Ur Phencyclidine Scrn None detected (None Detect) Ur Amphetamines Screen None detected (None Detect) U Benzodiazepines Scrn None detected (None Detect) Urine Cocaine Screen None detected (None Detect) U Cannabinoids Screen None detected (None Detect) Serum Alcohol (<10) mg/dL Assess/Plan/Problems-Billing Assessment: 56 yo man with disorganized thoughts / altered mental status -- which is an unusual manifestation of his schizophrenia/bipolar disease. At the same time, no clear medical explanation for his presentation either. Continuing with watchful waiting and surveillance for a medical explanation. Providing ongoing supportive care. - Patient Problems (1) Altered mental status Current Visit: No Status: Acute Code(s): R41.82 - ALTERED MENTAL STATUS, UNSPECIFIED SNOMED Code(s): 643551736 Comment: Much improved 2/. - unclear etiology, ? medication non-compliance. - had resolved quickly in previous admissions; though there was a known acute illnesses (COPD exacerbation and/or PE) - methylmalonic acid level ordered. RPR pending. ESR 29, CRP 9.66. NH3 52 ( high nl). - MRI brain w/o contrast pending. (2) Pulmonary embolism Current Visit: No Status: Acute Code(s): I26.99 - OTHER PULMONARY EMBOLISM WITHOUT ACUTE COR PULMONALE SNOMED Code(s): 74447727 Comment: Rivaroxaban 15 mg bid, change to 20 mg daily 08/03. (3) Schizo affective schizophrenia Current Visit: No Status: Chronic Priority: Medium Code(s): F25.0 - SCHIZOAFFECTIVE DISORDER, BIPOLAR TYPE SNOMED Code(s): 964702177 Comment: Improved. Continue home medication regimen. Appreciate psych input (4) Morbid obesity Current Visit: No Status: Chronic Priority: Medium Code(s): E66.01 - MORBID (SEVERE) OBESITY DUE TO EXCESS CALORIES SNOMED Code(s): 185088315 Comment: BMI 51.2. (5) Constipation Current Visit: Yes Status: Acute Code(s): K59.00 - CONSTIPATION, UNSPECIFIED SNOMED Code(s): 07494477 Comment: PEG 17 gm bid started 07/22, seems to be working well. (6) DM type 2 (diabetes mellitus, type 2) Current Visit: No Status: Chronic Priority: Medium Comment: Linagliptin not available, doing OK on glipizide alone for now. (7) Hypothyroidism Current Visit: No Status: Acute Code(s): E03.9 - HYPOTHYROIDISM, UNSPECIFIED SNOMED Code(s): 93464877 Comment: TSH wnl 07/19/16.
[2016-07-23] MEDS: traZODone TAB* 50 MG TAB PO PRN (21:17)
[2016-07-23] MEDS: OLANzapine TAB* 10 MG PO SCH (21:18)
[2016-07-24] MEDS: Polyethylene Glycol 3350* 17 GM PACKET PO SCH (08:22)
[2016-07-24] MEDS: Insulin LISPRO* 1 UNITS UNIT SUBCUT SCH ×3 (08:22→17:15)
[2016-07-24] MEDS: glipiZIDE TAB* 5 MG PO SCH ×2 (08:23→17:20)
[2016-07-24] MEDS: Levothyroxine TAB* 112 MCG TAB PO SCH (08:23)
[2016-07-24] MEDS: Sertraline* 100 MG TAB PO SCH (08:23)
[2016-07-24] MEDS: Lisinopril TAB* 10 MG PO SCH (08:23)
[2016-07-24] MEDS: Rivaroxaban TAB(*) 15 MG PO SCH ×2 (08:23→20:14)
[2016-07-24] MEDS: Furosemide TAB* 20 MG PO SCH (08:23)
[2016-07-24] MEDS: Mometasone/Formoter 200/5 MDI INH SCH ×2 (08:56→20:36)
[2016-07-24 11:00] LABS: Syphilis Index < 0.1 Index
--- NOTE | 2016-07-24 14:04 | CONSULT ---
Identification - Patient Identification Reason for Psychiatric Consultation: Other - Thought disorganization -: Patient is a 56 year old, M admitted on 07/20/16. History - Objective HPI: 56 y.o. , white male with a chronic history of schizoaffective disorder presents to the hospital with confused, disorganized mentatation and inability to provide coherent history or to care for himself if discharged. Today, he continues to have non-sequitur speech and tells me that his discharge plan is to "Go to the exercise room where I can grab my pencil." Chart documentation indicates that he has not had his scheduled MRI yet as he is too disorganized to complete the consent form. He is compliant with all medications. Lab Results: Laboratory Tests 07/21/16 07/21/16 07/21/16 05:46 05:46 05:46 WBC 8.2 RBC 4.17 Hgb 12.4 L Hct 37 L MCV 88 MCH 30 MCHC 34 RDW 14 Plt Count 179 MPV 7 L Neut % (Auto) 70.3 Lymph % (Auto) 19.8 L [place] % (Auto) 7.0 Eos % (Auto) 2.5 Baso % (Auto) 0.4 Absolute Neuts (auto) 5.8 Absolute Lymphs (auto) 1.6 Absolute Monos (auto) 0.6 Absolute Eos (auto) 0.2 Absolute Basos (auto) 0 Absolute Nucleated RBC 0.01 Nucleated RBC % 0.1 ESR 29 H VBG pH VBG pCO2 VBG pO2 VBG HCO3 VBG O2 Saturation VBG Base Excess Sodium 135 Potassium 4.1 Chloride 101 Carbon Dioxide 29 Anion Gap 5 BUN 15 Creatinine 0.62 L Est GFR ( Amer) 172.6 Est GFR (Non-Af Amer) 134.2 BUN/Creatinine Ratio 24.2 H Glucose 159 H POC Glucose (mg/dL) Hemoglobin A1c Calcium 8.9 Ammonia C-Reactive Protein 9.66 H Vitamin B12 232 Syphilis IgG Antibody Nonreactive 07/21/16 07/21/16 07/21/16 05:46 06:11 16:38 WBC RBC Hgb Hct MCV MCH MCHC RDW Plt Count MPV Neut % (Auto) Lymph % (Auto) [place] % (Auto) Eos % (Auto) Baso % (Auto) Absolute Neuts (auto) Absolute Lymphs (auto) Absolute Monos (auto) Absolute Eos (auto) Absolute Basos (auto) Absolute Nucleated RBC Nucleated RBC % ESR VBG pH 7.39 VBG pCO2 54 H VBG pO2 65 H VBG HCO3 29.8 H VBG O2 Saturation 95.4 H VBG Base Excess 6.4 H Sodium Potassium Chloride Carbon Dioxide Anion Gap BUN Creatinine Est GFR ( Amer) Est GFR (Non-Af Amer) BUN/Creatinine Ratio Glucose POC Glucose (mg/dL) 139 H Hemoglobin A1c 7.4 H Calcium Ammonia C-Reactive Protein Vitamin B12 Syphilis IgG Antibody 07/22/16 07/22/16 07/22/16 05:29 05:29 05:30 WBC 8.6 RBC 4.28 Hgb 12.8 L Hct 38 L MCV 89 MCH 30 MCHC 34 RDW 14 Plt Count 207 MPV 7 L Neut % (Auto) 72.0 Lymph % (Auto) 20.8 L [place] % (Auto) 4.4 Eos % (Auto) 1.8 Baso % (Auto) 1.0 Absolute Neuts (auto) 6.2 Absolute Lymphs (auto) 1.8 Absolute Monos (auto) 0.4 Absolute Eos (auto) 0.2 Absolute Basos (auto) 0.1 Absolute Nucleated RBC 0.01 Nucleated RBC % 0.1 ESR VBG pH 7.43 VBG pCO2 47 VBG pO2 75 H VBG HCO3 29.5 H VBG O2 Saturation 97.2 H VBG Base Excess 5.9 H Sodium Potassium Chloride Carbon Dioxide Anion Gap BUN Creatinine Est GFR ( Amer) Est GFR (Non-Af Amer) BUN/Creatinine Ratio Glucose POC Glucose (mg/dL) Hemoglobin A1c Calcium Ammonia 52 C-Reactive Protein Vitamin B12 Syphilis IgG Antibody 07/22/16 07/22/16 07/22/16 05:30 12:10 16:01 WBC RBC Hgb Hct MCV MCH MCHC RDW Plt Count MPV Neut % (Auto) Lymph % (Auto) [place] % (Auto) Eos % (Auto) Baso % (Auto) Absolute Neuts (auto) Absolute Lymphs (auto) Absolute Monos (auto) Absolute Eos (auto) Absolute Basos (auto) Absolute Nucleated RBC Nucleated RBC % ESR VBG pH VBG pCO2 VBG pO2 VBG HCO3 VBG O2 Saturation VBG Base Excess Sodium 135 Potassium 4.3 Chloride 101 Carbon Dioxide 29 Anion Gap 5 BUN 13 Creatinine 0.63 L Est GFR ( Amer) 169.4 Est GFR (Non-Af Amer) 131.7 BUN/Creatinine Ratio 20.6 H Glucose 159 H POC Glucose (mg/dL) 138 H 112 H Hemoglobin A1c Calcium 9.1 Ammonia C-Reactive Protein Vitamin B12 Syphilis IgG Antibody 07/23/16 07/23/16 07/23/16 07:34 12:36 17:53 WBC RBC Hgb Hct MCV MCH MCHC RDW Plt Count MPV Neut % (Auto) Lymph % (Auto) [place] % (Auto) Eos % (Auto) Baso % (Auto) Absolute Neuts (auto) Absolute Lymphs (auto) Absolute Monos (auto) Absolute Eos (auto) Absolute Basos (auto) Absolute Nucleated RBC Nucleated RBC % ESR VBG pH VBG pCO2 VBG pO2 VBG HCO3 VBG O2 Saturation VBG Base Excess Sodium Potassium Chloride Carbon Dioxide Anion Gap BUN Creatinine Est GFR ( Amer) Est GFR (Non-Af Amer) BUN/Creatinine Ratio Glucose POC Glucose (mg/dL) 168 H 88 176 H Hemoglobin A1c Calcium Ammonia C-Reactive Protein Vitamin B12 Syphilis IgG Antibody 07/24/16 07/24/16 07:43 12:00 WBC RBC Hgb Hct MCV MCH MCHC RDW Plt Count MPV Neut % (Auto) Lymph % (Auto) [place] % (Auto) Eos % (Auto) Baso % (Auto) Absolute Neuts (auto) Absolute Lymphs (auto) Absolute Monos (auto) Absolute Eos (auto) Absolute Basos (auto) Absolute Nucleated RBC Nucleated RBC % ESR VBG pH VBG pCO2 VBG pO2 VBG HCO3 VBG O2 Saturation VBG Base Excess Sodium Potassium Chloride Carbon Dioxide Anion Gap BUN Creatinine Est GFR ( Amer) Est GFR (Non-Af Amer) BUN/Creatinine Ratio Glucose POC Glucose (mg/dL) 184 H 171 H Hemoglobin A1c Calcium Ammonia C-Reactive Protein Vitamin B12 Syphilis IgG Antibody Exam Appearance: Obese Hygiene: Normal Grooming: Disheveled Psychomotor Activities: Normal Exhibits Abnormal Movement: No Attitude and Relatedness: Psychotically Related Eye Contact: Fair - Speech Quality: Unpressured Latencies: Normal Quantity: Copious Patient's Decription of Mood: "Okay" Observed Affect: Fair Affect Consistent with: Euthymia Patient's Thought Process: Disorganized, Loose Associations Thought Content: No Passive Wish, No Suicidal Planning, No Homicidal Ideation, No Paranoid Ideation Experiencing Hallucinations: No, Sensorium is Clear Type of Hallucinations: Visual: No, Auditory: No, Command: No Level of Consciousness: Alert Orientation: No Intact, No Orientated to Time, No Orientated to Place, No Orientated to Person Impulse Control: Poor Insight and Judgement: Impaired Impression - Impression Clinical Impression: 56 y.o. 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 According to the clinicians at [facility], who have worked with him for years, this is not a typical psychiatric presentation for him, which would point to a delirium picture. Although he does have an active PE, his vitals and blood work are mostly within the normal limits. He does have some equivocal findings on his CXR, which the primary team is aware of. 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 Plan - Treatment Plan Treatment Plan: Patient presents with continued medical delirium. His speech seems almost aphasic to me and he does require an MRI to rule out stroke pathology. He would not be a candidate for psychiatric inpatient transfer as delirium tends to be a relative contraindication for milieu treatment. Recommend addition of fluphenazine 5mg PO BID on scheduled basis to treat encephalopathy. Psychiatry will continue to follow closely. Continued Medication Management: Start Medication Medications: Current Medications Acetaminophen (Tylenol Tab*) 650 mg PO Q4H PRN PRN Reason: FEVER/PAIN Last Admin: 07/23/16 21:17 Dose: 650 mg Albuterol (Ventolin Hfa Inhaler*) 2 puff INH Q4H PRN PRN Reason: SHORTNESS OF BREATH Dextrose (D50w Syringe 50 Ml*) 12.5 gm IV PUSH .FOR FS < 60 - SS PRN PRN Reason: FS < 60 Fluphenazine HCl (Prolixin Tab*) 5 mg PO Q6H PRN PRN Reason: CONFUSION Last Admin: 07/24/16 10:02 Dose: 5 mg Fluphenazine HCl (Prolixin Tab*) 5 mg PO BID [facility] Furosemide (Lasix Tab*) 20 mg PO DAILY [facility] Last Admin: 07/24/16 08:23 Dose: 20 mg Glipizide (Glucotrol Tab*) 5 mg PO BID [facility] Last Admin: 07/24/16 08:23 Dose: 5 mg Insulin Human Lispro (Humalog*) 0 units SUBCUT [facility] PRN Reason: Protocol Last Admin: 07/24/16 12:12 Dose: 3 unit Levothyroxine Sodium (Synthroid Tab*) 112 mcg PO DAILY [facility] Last Admin: 07/24/16 08:23 Dose: 112 mcg Lisinopril (Prinivil Tab*) 10 mg PO DAILY [facility] Last Admin: 07/24/16 08:23 Dose: 10 mg Mometasone Furoate/Formoterol Fumar (Dulera 200/5 Mdi*) 2 puff INH BID [facility] Last Admin: 07/24/16 08:56 Dose: 2 puff Nicotine (Nicotine Inhaler*) 10 mg INH Q2H PRN PRN Reason: CRAVING Olanzapine (Zyprexa Tab*) 20 mg PO BEDTIME [facility] Last Admin: 07/23/16 21:18 Dose: 20 mg Ondansetron HCl (Zofran Inj*) 4 mg IV Q4H PRN PRN Reason: NAUSEA/VOMITING Paliperidone Palmitate (Invega Sustenna*) 156 mg IM Q30D [facility] Last Admin: 07/19/16 21:03 Dose: 156 mg Polyethylene Glycol/Electrolytes (Miralax*) 17 gm PO 0800,2100 [facility] Last Admin: 07/24/16 08:22 Dose: 17 gm Rivaroxaban (Xarelto(*)) 15 mg PO BID [facility] Last Admin: 07/24/16 08:23 Dose: 15 mg Sertraline HCl (Zoloft*) 200 mg PO DAILY [facility] Last Admin: 07/24/16 08:23 Dose: 200 mg Trazodone HCl (Desyrel Tab*) 50 mg PO BEDTIME PRN PRN Reason: SLEEP Last Admin: 07/23/16 21:17 Dose: 50 mg
--- NOTE | 2016-07-24 14:19 | PN ---
Subjective Date of Service: 07/24/16 Interval History: C/O several stools today, also requests a protein powder drink which he says he has at home. Family History: Unchanged from Admission Social History: Unchanged from Admission Past Medical History: Unchanged from Admission Objective Active Medications: Acetaminophen (Tylenol Tab*) 650 mg PO Q4H PRN PRN Reason: FEVER/PAIN Last Admin: 07/23/16 21:17 Dose: 650 mg Albuterol (Ventolin Hfa Inhaler*) 2 puff INH Q4H PRN PRN Reason: SHORTNESS OF BREATH Dextrose (D50w Syringe 50 Ml*) 12.5 gm IV PUSH .FOR FS < 60 - SS PRN PRN Reason: FS < 60 Fluphenazine HCl (Prolixin Tab*) 5 mg PO Q6H PRN PRN Reason: CONFUSION Last Admin: 07/24/16 10:02 Dose: 5 mg Fluphenazine HCl (Prolixin Tab*) 5 mg PO BID [facility] Furosemide (Lasix Tab*) 20 mg PO DAILY [facility] Last Admin: 07/24/16 08:23 Dose: 20 mg Glipizide (Glucotrol Tab*) 5 mg PO BID [facility] Last Admin: 07/24/16 08:23 Dose: 5 mg Insulin Human Lispro (Humalog*) 0 units SUBCUT [facility] PRN Reason: Protocol Last Admin: 07/24/16 12:12 Dose: 3 unit Levothyroxine Sodium (Synthroid Tab*) 112 mcg PO DAILY [facility] Last Admin: 07/24/16 08:23 Dose: 112 mcg Lisinopril (Prinivil Tab*) 10 mg PO DAILY [facility] Last Admin: 07/24/16 08:23 Dose: 10 mg Mometasone Furoate/Formoterol Fumar (Dulera 200/5 Mdi*) 2 puff INH BID [facility] Last Admin: 07/24/16 08:56 Dose: 2 puff Nicotine (Nicotine Inhaler*) 10 mg INH Q2H PRN PRN Reason: CRAVING Olanzapine (Zyprexa Tab*) 20 mg PO BEDTIME [facility] Last Admin: 07/23/16 21:18 Dose: 20 mg Ondansetron HCl (Zofran Inj*) 4 mg IV Q4H PRN PRN Reason: NAUSEA/VOMITING Paliperidone Palmitate (Invega Sustenna*) 156 mg IM Q30D [facility] Last Admin: 07/19/16 21:03 Dose: 156 mg Polyethylene Glycol/Electrolytes (Miralax*) 17 gm PO 0800,2100 [facility] Last Admin: 07/24/16 08:22 Dose: 17 gm Rivaroxaban (Xarelto(*)) 15 mg PO BID [facility] Last Admin: 07/24/16 08:23 Dose: 15 mg Sertraline HCl (Zoloft*) 200 mg PO DAILY [facility] Last Admin: 07/24/16 08:23 Dose: 200 mg Trazodone HCl (Desyrel Tab*) 50 mg PO BEDTIME PRN PRN Reason: SLEEP Last Admin: 07/23/16 21:17 Dose: 50 mg Vital Signs 07/23/16 07/23/16 07/24/16 16:05 21:55 07:48 Temperature 98.1 F Pulse Rate 87 86 Respiratory 20 18 17 Rate Blood Pressure 111/49 118/72 (mmHg) O2 Sat by Pulse 95 94 Oximetry 07/24/16 07/24/16 08:00 08:58 Temperature Pulse Rate 94 Respiratory 18 14 Rate Blood Pressure (mmHg) O2 Sat by Pulse 93 Oximetry Oxygen Devices in Use Now: None Appearance: Alert, on his L side in bed. In good spirits. Looks comfortable. Eyes: No Scleral Icterus Ears/Nose/Mouth/Throat: Clear Oropharnyx, Mucous Membranes Moist Neck: NL Appearance and Movements; NL JVP, No Thyroid Enlargement, Masses Abdominal: - - massive obesity Extremities: No Edema, No Clubbing, Cyanosis, - Skin: No Rash or Ulcers, No Nodules or Sclerosis, - Neurological: Alert and Oriented x 3, NL Sensation Result Diagrams: 07/22/16 05:30 07/22/16 05:30 Additional Lab and Data: Lab Results 07/19/16 07/19/16 07/19/16 Range/Units 01:21 01:21 01:21 WBC 8.7 (3.5-10.8) 10^3/ul RBC 4.15 (4.0-5.4) 10^6/ul Hgb 12.3 L (14.0-18.0) g/dl Hct 36 L (42-52) % MCV 87 (80-94) fL MCH 30 (27-31) pg MCHC 34 (31-36) g/dl RDW 14 (10.5-15) % Plt Count 140 L (150-450) 10^3/ul MPV 8 (7.4-10.4) um3 Neut % (Auto) 75.7 (38-83) % Lymph % (Auto) 12.2 L (25-47) % [place] % (Auto) 10.1 H (1-9) % Eos % (Auto) 1.6 (0-6) % Baso % (Auto) 0.4 (0-2) % Absolute Neuts (auto) 6.6 (1.5-7.7) 10^3/ul Absolute Lymphs (auto) 1.1 (1.0-4.8) 10^3/ul Absolute Monos (auto) 0.9 H (0-0.8) 10^3/ul Absolute Eos (auto) 0.1 (0-0.6) 10^3/ul Absolute Basos (auto) 0 (0-0.2) 10^3/ul Absolute Nucleated RBC 0 10^3/ul Nucleated RBC % 0 Sodium 130 L (133-145) mmol/L Potassium 4.3 (3.5-5.0) mmol/L Chloride 97 L (101-111) mmol/L Carbon Dioxide 26 (22-32) mmol/L Anion Gap 7 (2-11) mmol/L BUN 18 (6-24) mg/dL Creatinine 0.68 (0.67-1.17) mg/dL Est GFR ( Amer) 155.1 (>60) Est GFR (Non-Af Amer) 120.6 (>60) BUN/Creatinine Ratio 26.5 H (8-20) Glucose 215 H (70-100) mg/dL Calcium 9.0 (8.6-10.3) mg/dL Total Bilirubin 0.30 (0.2-1.0) mg/dL AST 18 (13-39) U/L ALT 28 (7-52) U/L Alkaline Phosphatase 45 (34-104) U/L Total Protein 6.5 (6.4-8.9) g/dL Albumin 3.6 (3.2-5.2) g/dL Globulin 2.9 (2-4) g/dL Albumin/Globulin Ratio 1.2 (1-3) Urine Color Yellow Urine Appearance Clear Urine pH 5.0 (5-9) Ur Specific [place] 1.018 (1.010-1.030) Urine Protein Negative (Negative) Urine Ketones Negative (Negative) Urine Blood 1+ H (Negative) Urine Nitrate Negative (Negative) Urine Bilirubin Negative (Negative) Urine Urobilinogen Negative (Negative) Ur Leukocyte Esterase Negative (Negative) Urine WBC (Auto) Absent (Absent) Urine RBC (Auto) 1+(3-5/hpf) H (Absent) Ur Squamous Epith Cells Present H (Absent) Urine Bacteria Absent (Absent) Urine Glucose 1+(50 mg/dl) H (Negative) Salicylates < 2.50 (<30) mg/dL Urine Opiates Screen (None Detect) Acetaminophen < 15 mcg/mL Ur Barbiturates Screen (None Detect) Ur Phencyclidine Scrn (None Detect) Ur Amphetamines Screen (None Detect) U Benzodiazepines Scrn (None Detect) Urine Cocaine Screen (None Detect) U Cannabinoids Screen (None Detect) Serum Alcohol < 10 (<10) mg/dL 07/19/16 Range/Units 01:21 WBC (3.5-10.8) 10^3/ul RBC (4.0-5.4) 10^6/ul Hgb (14.0-18.0) g/dl Hct (42-52) % MCV (80-94) fL MCH (27-31) pg MCHC (31-36) g/dl RDW (10.5-15) % Plt Count (150-450) 10^3/ul MPV (7.4-10.4) um3 Neut % (Auto) (38-83) % Lymph % (Auto) (25-47) % [place] % (Auto) (1-9) % Eos % (Auto) (0-6) % Baso % (Auto) (0-2) % Absolute Neuts (auto) (1.5-7.7) 10^3/ul Absolute Lymphs (auto) (1.0-4.8) 10^3/ul Absolute Monos (auto) (0-0.8) 10^3/ul Absolute Eos (auto) (0-0.6) 10^3/ul Absolute Basos (auto) (0-0.2) 10^3/ul Absolute Nucleated RBC 10^3/ul Nucleated RBC % Sodium (133-145) mmol/L Potassium (3.5-5.0) mmol/L Chloride (101-111) mmol/L Carbon Dioxide (22-32) mmol/L Anion Gap (2-11) mmol/L BUN (6-24) mg/dL Creatinine (0.67-1.17) mg/dL Est GFR ( Amer) (>60) Est GFR (Non-Af Amer) (>60) BUN/Creatinine Ratio (8-20) Glucose (70-100) mg/dL Calcium (8.6-10.3) mg/dL Total Bilirubin (0.2-1.0) mg/dL AST (13-39) U/L ALT (7-52) U/L Alkaline Phosphatase (34-104) U/L Total Protein (6.4-8.9) g/dL Albumin (3.2-5.2) g/dL Globulin (2-4) g/dL Albumin/Globulin Ratio (1-3) Urine Color Urine Appearance Urine pH (5-9) Ur Specific [place] (1.010-1.030) Urine Protein (Negative) Urine Ketones (Negative) Urine Blood (Negative) Urine Nitrate (Negative) Urine Bilirubin (Negative) Urine Urobilinogen (Negative) Ur Leukocyte Esterase (Negative) Urine WBC (Auto) (Absent) Urine RBC (Auto) (Absent) Ur Squamous Epith Cells (Absent) Urine Bacteria (Absent) Urine Glucose (Negative) Salicylates (<30) mg/dL Urine Opiates Screen None detected (None Detect) Acetaminophen mcg/mL Ur Barbiturates Screen None detected (None Detect) Ur Phencyclidine Scrn None detected (None Detect) Ur Amphetamines Screen None detected (None Detect) U Benzodiazepines Scrn None detected (None Detect) Urine Cocaine Screen None detected (None Detect) U Cannabinoids Screen None detected (None Detect) Serum Alcohol (<10) mg/dL Assess/Plan/Problems-Billing Assessment: 56 yo man with disorganized thoughts / altered mental status -- which is an unusual manifestation of his schizophrenia/bipolar disease. At the same time, no clear medical explanation for his presentation either. Continuing with watchful waiting and surveillance for a medical explanation. Providing ongoing supportive care. - Patient Problems (1) Altered mental status Current Visit: No Status: Acute Code(s): R41.82 - ALTERED MENTAL STATUS, UNSPECIFIED SNOMED Code(s): 540586594 Comment: Improved but still not able to function at home per Dr. Garibay 07/24. - unclear etiology, ? medication non-compliance and/or delirium.. - had resolved quickly in previous admissions; though there was a known acute illnesses (COPD exacerbation and/or PE) - methylmalonic acid level pending. ESR 29, CRP 9.66. NH3 52 (high nl). Syphillis IgG neg. Starting fluphenazine 5 mg bid start PM 07/[address] Garibay. - MRI brain w/o contrast pending, may be delayed due to lack of consent. (2) Pulmonary embolism Current Visit: No Status: Acute Code(s): I26.99 - OTHER PULMONARY EMBOLISM WITHOUT ACUTE COR PULMONALE SNOMED Code(s): 46362648 Comment: Rivaroxaban 15 mg bid, change to 20 mg daily 08/03. (3) Schizo affective schizophrenia Current Visit: No Status: Chronic Priority: Medium Code(s): F25.0 - SCHIZOAFFECTIVE DISORDER, BIPOLAR TYPE SNOMED Code(s): 689324262 Comment: Improved. Continue home medication regimen. Appreciate psych input (4) Morbid obesity Current Visit: No Status: Chronic Priority: Medium Code(s): E66.01 - MORBID (SEVERE) OBESITY DUE TO EXCESS CALORIES SNOMED Code(s): 421513461 Comment: BMI 51.2. (5) Constipation Current Visit: Yes Status: Acute Code(s): K59.00 - CONSTIPATION, UNSPECIFIED SNOMED Code(s): 27613784 Comment: PEG reduced to 17 gm daily on 07/22. (6) DM type 2 (diabetes mellitus, type 2) Current Visit: No Status: Chronic Priority: Medium Comment: Linagliptin not available, doing OK on glipizide alone for now. (7) Hypothyroidism Current Visit: No Status: Acute Code(s): E03.9 - HYPOTHYROIDISM, UNSPECIFIED SNOMED Code(s): 37374250 Comment: TSH wnl 07/19/16.
[2016-07-24] MEDS: OLANzapine TAB* 10 MG PO SCH (20:13)
[2016-07-24] MEDS: traZODone TAB* 50 MG TAB PO PRN (20:14)
[2016-07-24] MEDS: fluPHENAZine HCL TAB* 5 MG PO SCH (20:14)
[2016-07-25] MEDS: Levothyroxine TAB* 112 MCG TAB PO SCH (08:30)
[2016-07-25] MEDS: glipiZIDE TAB* 5 MG PO SCH ×2 (08:30→18:13)
[2016-07-25] MEDS: Polyethylene Glycol 3350* 17 GM PACKET PO SCH (08:30)
[2016-07-25] MEDS: Insulin LISPRO* 1 UNITS UNIT SUBCUT SCH ×3 (08:30→18:14)
[2016-07-25] MEDS: Lisinopril TAB* 10 MG PO SCH (08:30)
[2016-07-25] MEDS: Rivaroxaban TAB(*) 15 MG PO SCH ×2 (08:31→20:43)
[2016-07-25] MEDS: Mometasone/Formoter 200/5 MDI INH SCH ×2 (08:31→20:43)
[2016-07-25] MEDS: Sertraline* 100 MG TAB PO SCH (08:31)
[2016-07-25] MEDS: Furosemide TAB* 20 MG PO SCH (08:31)
--- NOTE | 2016-07-25 08:34 | CONSULT ---
Identification - Patient Identification Reason for Psychiatric Consultation: Other - Thought disorganization -: Patient is a 56 year old, M admitted on 07/20/16. History - Objective HPI: 56 y.o. , white male with a chronic history of schizoaffective disorder presents to the hospital with confused, disorganized mentatation and inability to provide coherent history or to care for himself if discharged. Today, he appears very slightly better organized but still cannot respond accurately to orienting questions. The patient has not yet received the ordered MRI of head. Lab Results: Laboratory Tests 07/21/16 07/21/16 07/21/16 05:46 05:46 05:46 WBC 8.2 RBC 4.17 Hgb 12.4 L Hct 37 L MCV 88 MCH 30 MCHC 34 RDW 14 Plt Count 179 MPV 7 L Neut % (Auto) 70.3 Lymph % (Auto) 19.8 L [place] % (Auto) 7.0 Eos % (Auto) 2.5 Baso % (Auto) 0.4 Absolute Neuts (auto) 5.8 Absolute Lymphs (auto) 1.6 Absolute Monos (auto) 0.6 Absolute Eos (auto) 0.2 Absolute Basos (auto) 0 Absolute Nucleated RBC 0.01 Nucleated RBC % 0.1 ESR 29 H VBG pH VBG pCO2 VBG pO2 VBG HCO3 VBG O2 Saturation VBG Base Excess Sodium 135 Potassium 4.1 Chloride 101 Carbon Dioxide 29 Anion Gap 5 BUN 15 Creatinine 0.62 L Est GFR ( Amer) 172.6 Est GFR (Non-Af Amer) 134.2 BUN/Creatinine Ratio 24.2 H Glucose 159 H POC Glucose (mg/dL) Hemoglobin A1c Calcium 8.9 Ammonia C-Reactive Protein 9.66 H Vitamin B12 232 Syphilis IgG Antibody Nonreactive 07/21/16 07/21/16 07/21/16 05:46 06:11 16:38 WBC RBC Hgb Hct MCV MCH MCHC RDW Plt Count MPV Neut % (Auto) Lymph % (Auto) [place] % (Auto) Eos % (Auto) Baso % (Auto) Absolute Neuts (auto) Absolute Lymphs (auto) Absolute Monos (auto) Absolute Eos (auto) Absolute Basos (auto) Absolute Nucleated RBC Nucleated RBC % ESR VBG pH 7.39 VBG pCO2 54 H VBG pO2 65 H VBG HCO3 29.8 H VBG O2 Saturation 95.4 H VBG Base Excess 6.4 H Sodium Potassium Chloride Carbon Dioxide Anion Gap BUN Creatinine Est GFR ( Amer) Est GFR (Non-Af Amer) BUN/Creatinine Ratio Glucose POC Glucose (mg/dL) 139 H Hemoglobin A1c 7.4 H Calcium Ammonia C-Reactive Protein Vitamin B12 Syphilis IgG Antibody 07/22/16 07/22/16 07/22/16 05:29 05:29 05:30 WBC 8.6 RBC 4.28 Hgb 12.8 L Hct 38 L MCV 89 MCH 30 MCHC 34 RDW 14 Plt Count 207 MPV 7 L Neut % (Auto) 72.0 Lymph % (Auto) 20.8 L [place] % (Auto) 4.4 Eos % (Auto) 1.8 Baso % (Auto) 1.0 Absolute Neuts (auto) 6.2 Absolute Lymphs (auto) 1.8 Absolute Monos (auto) 0.4 Absolute Eos (auto) 0.2 Absolute Basos (auto) 0.1 Absolute Nucleated RBC 0.01 Nucleated RBC % 0.1 ESR VBG pH 7.43 VBG pCO2 47 VBG pO2 75 H VBG HCO3 29.5 H VBG O2 Saturation 97.2 H VBG Base Excess 5.9 H Sodium Potassium Chloride Carbon Dioxide Anion Gap BUN Creatinine Est GFR ( Amer) Est GFR (Non-Af Amer) BUN/Creatinine Ratio Glucose POC Glucose (mg/dL) Hemoglobin A1c Calcium Ammonia 52 C-Reactive Protein Vitamin B12 Syphilis IgG Antibody 07/22/16 07/22/16 07/22/16 05:30 12:10 16:01 WBC RBC Hgb Hct MCV MCH MCHC RDW Plt Count MPV Neut % (Auto) Lymph % (Auto) [place] % (Auto) Eos % (Auto) Baso % (Auto) Absolute Neuts (auto) Absolute Lymphs (auto) Absolute Monos (auto) Absolute Eos (auto) Absolute Basos (auto) Absolute Nucleated RBC Nucleated RBC % ESR VBG pH VBG pCO2 VBG pO2 VBG HCO3 VBG O2 Saturation VBG Base Excess Sodium 135 Potassium 4.3 Chloride 101 Carbon Dioxide 29 Anion Gap 5 BUN 13 Creatinine 0.63 L Est GFR ( Amer) 169.4 Est GFR (Non-Af Amer) 131.7 BUN/Creatinine Ratio 20.6 H Glucose 159 H POC Glucose (mg/dL) 138 H 112 H Hemoglobin A1c Calcium 9.1 Ammonia C-Reactive Protein Vitamin B12 Syphilis IgG Antibody 07/23/16 07/23/16 07/23/16 07:34 12:36 17:53 WBC RBC Hgb Hct MCV MCH MCHC RDW Plt Count MPV Neut % (Auto) Lymph % (Auto) [place] % (Auto) Eos % (Auto) Baso % (Auto) Absolute Neuts (auto) Absolute Lymphs (auto) Absolute Monos (auto) Absolute Eos (auto) Absolute Basos (auto) Absolute Nucleated RBC Nucleated RBC % ESR VBG pH VBG pCO2 VBG pO2 VBG HCO3 VBG O2 Saturation VBG Base Excess Sodium Potassium Chloride Carbon Dioxide Anion Gap BUN Creatinine Est GFR ( Amer) Est GFR (Non-Af Amer) BUN/Creatinine Ratio Glucose POC Glucose (mg/dL) 168 H 88 176 H Hemoglobin A1c Calcium Ammonia C-Reactive Protein Vitamin B12 Syphilis IgG Antibody 07/24/16 07/24/16 07/24/16 07:43 12:00 16:31 WBC RBC Hgb Hct MCV MCH MCHC RDW Plt Count MPV Neut % (Auto) Lymph % (Auto) [place] % (Auto) Eos % (Auto) Baso % (Auto) Absolute Neuts (auto) Absolute Lymphs (auto) Absolute Monos (auto) Absolute Eos (auto) Absolute Basos (auto) Absolute Nucleated RBC Nucleated RBC % ESR VBG pH VBG pCO2 VBG pO2 VBG HCO3 VBG O2 Saturation VBG Base Excess Sodium Potassium Chloride Carbon Dioxide Anion Gap BUN Creatinine Est GFR ( Amer) Est GFR (Non-Af Amer) BUN/Creatinine Ratio Glucose POC Glucose (mg/dL) 184 H 171 H 118 H Hemoglobin A1c Calcium Ammonia C-Reactive Protein Vitamin B12 Syphilis IgG Antibody 07/25/16 07:23 WBC RBC Hgb Hct MCV MCH MCHC RDW Plt Count MPV Neut % (Auto) Lymph % (Auto) [place] % (Auto) Eos % (Auto) Baso % (Auto) Absolute Neuts (auto) Absolute Lymphs (auto) Absolute Monos (auto) Absolute Eos (auto) Absolute Basos (auto) Absolute Nucleated RBC Nucleated RBC % ESR VBG pH VBG pCO2 VBG pO2 VBG HCO3 VBG O2 Saturation VBG Base Excess Sodium Potassium Chloride Carbon Dioxide Anion Gap BUN Creatinine Est GFR ( Amer) Est GFR (Non-Af Amer) BUN/Creatinine Ratio Glucose POC Glucose (mg/dL) 167 H Hemoglobin A1c Calcium Ammonia C-Reactive Protein Vitamin B12 Syphilis IgG Antibody Exam Appearance: Obese Hygiene: Normal Grooming: Disheveled Psychomotor Activities: Normal Exhibits Abnormal Movement: No Attitude and Relatedness: Psychotically Related Eye Contact: Fair - Speech Quality: Unpressured Latencies: Normal Quantity: Copious Patient's Decription of Mood: "Okay" Observed Affect: Fair Affect Consistent with: Euthymia Patient's Thought Process: Disorganized, Loose Associations Thought Content: No Passive Wish, No Suicidal Planning, No Homicidal Ideation, No Paranoid Ideation Experiencing Hallucinations: No, Sensorium is Clear Type of Hallucinations: Visual: No, Auditory: No, Command: No Level of Consciousness: Alert Orientation: No Intact, No Orientated to Time, No Orientated to Place, No Orientated to Person Impulse Control: Poor Insight and Judgement: Impaired Impression - Impression Clinical Impression: 56 y.o. 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 Although he does have a documented, active PE, no other organic cause of confusion can be found. Plan - Treatment Plan Treatment Plan: Patient presents with continued medical delirium. His speech seems almost aphasic to me and he does require an MRI to rule out stroke pathology. He would not be a candidate for psychiatric inpatient transfer as delirium tends to be a relative contraindication for milieu treatment. He is tolerating the addition of scheduled fluphenazine twice daily and this seems already to be showing some benefit. Psychiatry will continue to follow closely. Continued Medication Management: Different Medication Medications: Current Medications Acetaminophen (Tylenol Tab*) 650 mg PO Q4H PRN PRN Reason: FEVER/PAIN Last Admin: 07/23/16 21:17 Dose: 650 mg Albuterol (Ventolin Hfa Inhaler*) 2 puff INH Q4H PRN PRN Reason: SHORTNESS OF BREATH Dextrose (D50w Syringe 50 Ml*) 12.5 gm IV PUSH .FOR FS < 60 - SS PRN PRN Reason: FS < 60 Fluphenazine HCl (Prolixin Tab*) 5 mg PO Q6H PRN PRN Reason: CONFUSION Last Admin: 07/24/16 10:02 Dose: 5 mg Fluphenazine HCl (Prolixin Tab*) 5 mg PO BID [facility] Last Admin: 07/24/16 20:14 Dose: 5 mg Furosemide (Lasix Tab*) 20 mg PO DAILY [facility] Last Admin: 07/24/16 08:23 Dose: 20 mg Glipizide (Glucotrol Tab*) 5 mg PO BID [facility] Last Admin: 07/24/16 17:20 Dose: 5 mg Insulin Human Lispro (Humalog*) 0 units SUBCUT [facility] PRN Reason: Protocol Last Admin: 07/24/16 17:15 Dose: Not Given Levothyroxine Sodium (Synthroid Tab*) 112 mcg PO DAILY [facility] Last Admin: 07/24/16 08:23 Dose: 112 mcg Lisinopril (Prinivil Tab*) 10 mg PO DAILY [facility] Last Admin: 07/24/16 08:23 Dose: 10 mg Mometasone Furoate/Formoterol Fumar (Dulera 200/5 Mdi*) 2 puff INH BID [facility] Last Admin: 07/24/16 20:36 Dose: 2 puff Nicotine (Nicotine Inhaler*) 10 mg INH Q2H PRN PRN Reason: CRAVING Olanzapine (Zyprexa Tab*) 20 mg PO BEDTIME [facility] Last Admin: 07/24/16 20:13 Dose: 20 mg Ondansetron HCl (Zofran Inj*) 4 mg IV Q4H PRN PRN Reason: NAUSEA/VOMITING Paliperidone Palmitate (Invega Sustenna*) 156 mg IM Q30D [facility] Last Admin: 07/19/16 21:03 Dose: 156 mg Polyethylene Glycol/Electrolytes (Miralax*) 17 gm PO DAILY [facility] Rivaroxaban (Xarelto(*)) 15 mg PO BID [facility] Last Admin: 07/24/16 20:14 Dose: 15 mg Sertraline HCl (Zoloft*) 200 mg PO DAILY [facility] Last Admin: 07/24/16 08:23 Dose: 200 mg Trazodone HCl (Desyrel Tab*) 50 mg PO BEDTIME PRN PRN Reason: SLEEP Last Admin: 07/24/16 20:14 Dose: 50 mg
[2016-07-25] MEDS: fluPHENAZine HCL TAB* 5 MG PO SCH ×2 (08:39→20:43)
--- NOTE | 2016-07-25 10:33 | RAD ---
Indication: Prescreening for MRI. 2 views of the orbits demonstrates no evidence of radiopaque foreign body. No other bone or joint abnormality is noted. IMPRESSION: No evidence of radiopaque foreign body is identified.
--- NOTE | 2016-07-25 10:35 | RAD ---
INDICATION: MRI screening. COMPARISON: Correlation is made with a prior CT of the abdomen and pelvis from April 08, 2015. TECHNIQUE: Frontal supine films of the abdomen were obtained. FINDINGS: The small bowel and colon appear nondistended. No surgical clips are metallic foreign bodies are seen. IMPRESSION: NEGATIVE EXAM.
--- NOTE | 2016-07-25 12:27 | RAD ---
Indication: Persistent altered mental status. Image sequences: Sagittal T1, axial T1, axial T2, FLAIR, diffusion and susceptibility weighted images of the brain were obtained. Ventricular structures are midline. No midline shift is noted. The extra-axial spaces are unremarkable. There is no evidence of intracranial mass or hemorrhage. No restriction of diffusion is noted. The cerebellopontine angles are unremarkable. The posterior fossa are unremarkable. Susceptibility weighted images demonstrates no evidence of residual hemosiderin. No vasogenic edema is noted on the FLAIR images. Paranasal sinuses demonstrates mucous retention cyst in the floor of the maxillary sinuses bilaterally. IMPRESSION: No intracranial lesion is identified.
--- NOTE | 2016-07-25 15:20 | PN ---
Subjective Date of Service: 07/25/16 Interval History: Patient seen this afternoon. Appears comfortable. Says breathing mildly labored at times when he lays down, denies pain. Speech illogical. Family History: Unchanged from Admission Social History: Unchanged from Admission Past Medical History: Unchanged from Admission Objective Active Medications: Acetaminophen (Tylenol Tab*) 650 mg PO Q4H PRN Albuterol (Ventolin Hfa Inhaler*) 2 puff INH Q4H PRN Dextrose (D50w Syringe 50 Ml*) 12.5 gm IV PUSH .FOR FS < 60 - SS PRN Fluphenazine HCl (Prolixin Tab*) 5 mg PO Q6H PRN Fluphenazine HCl (Prolixin Tab*) 5 mg PO BID [facility] Furosemide (Lasix Tab*) 20 mg PO DAILY [facility] Glipizide (Glucotrol Tab*) 5 mg PO BID [facility] Insulin Human Lispro (Humalog*) 0 units SUBCUT [facility] Levothyroxine Sodium (Synthroid Tab*) 112 mcg PO DAILY [facility] Lisinopril (Prinivil Tab*) 10 mg PO DAILY [facility] Mometasone Furoate/Formoterol Fumar (Dulera 200/5 Mdi*) 2 puff INH BID [facility] Nicotine (Nicotine Inhaler*) 10 mg INH Q2H PRN Olanzapine (Zyprexa Tab*) 20 mg PO BEDTIME [facility] Ondansetron HCl (Zofran Inj*) 4 mg IV Q4H PRN Paliperidone Palmitate (Invega Sustenna*) 156 mg IM Q30D [facility] Polyethylene Glycol/Electrolytes (Miralax*) 17 gm PO DAILY [facility] Rivaroxaban (Xarelto(*)) 15 mg PO BID [facility] Sertraline HCl (Zoloft*) 200 mg PO DAILY [facility] Trazodone HCl (Desyrel Tab*) 50 mg PO BEDTIME PRN Vital Signs 07/24/16 07/25/16 07/25/16 20:00 07:21 08:00 Temperature 96.8 F Pulse Rate 67 Respiratory 16 20 18 Rate Blood Pressure 114/53 (mmHg) O2 Sat by Pulse 95 Oximetry Oxygen Devices in Use Now: None Appearance: Morbidly obese, middle-aged, M, laying in bed in NAD Eyes: No Scleral Icterus Ears/Nose/Mouth/Throat: Mucous Membranes Moist Neck: NL Appearance and Movements; NL JVP Respiratory: Symmetrical Chest Expansion and Respiratory Effort, Clear to Auscultation Cardiovascular: NL Sounds; No Murmurs; No JVD, RRR Abdominal: NL Sounds; No Tenderness; No Distention Lymphatic: No Cervical Adenopathy Extremities: No Edema Skin: No Rash or Ulcers Neurological: Alert and Oriented x 3 Result Diagrams: 07/22/16 05:30 07/22/16 05:30 Additional Lab and Data: Assess/Plan/Problems-Billing Assessment: 56 yo man with disorganized thoughts / altered mental status -- which is an unusual manifestation of his schizophrenia/bipolar disease. At the same time, no clear medical explanation for his presentation either. - Patient Problems (1) Altered mental status Current Visit: No Comment: Improved but still not able to function at home. - had resolved quickly in previous admissions; though there was a known acute illnesses (COPD exacerbation and/or PE) - methylmalonic acid level pending. ESR 29, CRP 9.66. NH3 52 (high nl). Syphillis IgG neg. - Started fluphenazine 5 mg bid 07/[address] Garibay. - MRI brain negative - Will discuss further with psych (2) Pulmonary embolism Current Visit: No Comment: Rivaroxaban 15 mg bid, change to 20 mg daily . (3) Schizo affective schizophrenia Current Visit: No Comment: Appreciate psych input. Continue current regimen. (4) Morbid obesity Current Visit: No Comment: BMI 51.2. (5) Constipation Current Visit: Yes Comment: PEG reduced to 17 gm daily on 07/22. (6) DM type 2 (diabetes mellitus, type 2) Current Visit: No Comment: Linagliptin not available, doing OK on glipizide and HISS (7) Hypothyroidism Current Visit: No Status: Acute Comment: TSH wnl 07/19/16. (8) DVT prophylaxis Current Visit: No Comment: xarelto
[2016-07-25] MEDS: OLANzapine TAB* 10 MG PO SCH (20:43)
[2016-07-25] MEDS: traZODone TAB* 50 MG TAB PO PRN (23:47)
[2016-07-26] MEDS: glipiZIDE TAB* 5 MG PO SCH ×2 (08:41→17:21)
[2016-07-26] MEDS: Lisinopril TAB* 10 MG PO SCH (08:41)
[2016-07-26] MEDS: Levothyroxine TAB* 112 MCG TAB PO SCH (08:41)
[2016-07-26] MEDS: Sertraline* 100 MG TAB PO SCH (08:41)
[2016-07-26] MEDS: Rivaroxaban TAB(*) 15 MG PO SCH ×2 (08:41→20:13)
[2016-07-26] MEDS: Insulin LISPRO* 1 UNITS UNIT SUBCUT SCH ×3 (08:42→17:20)
[2016-07-26] MEDS: fluPHENAZine HCL TAB* 5 MG PO SCH ×2 (08:42→20:13)
[2016-07-26] MEDS: Furosemide TAB* 20 MG PO SCH (08:42)
[2016-07-26] MEDS: Polyethylene Glycol 3350* 17 GM PACKET PO SCH (08:42)
[2016-07-26] MEDS: Mometasone/Formoter 200/5 MDI INH SCH ×2 (09:55→20:14)
--- NOTE | 2016-07-26 14:12 | PN ---
Subjective Date of Service: 07/26/16 Interval History: Patient seen this afternoon. Laying in bed comfortably. Disorganized thoughts. Says he needs to get more testing so he can get a card with his blood type on it , also inquiring about getting his check sent to the hospital so he could buy popcorn. Family History: Unchanged from Admission Social History: Unchanged from Admission Past Medical History: Unchanged from Admission Objective Active Medications: Acetaminophen (Tylenol Tab*) 650 mg PO Q4H PRN PRN Reason: FEVER/PAIN Last Admin: 07/23/16 21:17 Dose: 650 mg Albuterol (Ventolin Hfa Inhaler*) 2 puff INH Q4H PRN PRN Reason: SHORTNESS OF BREATH Dextrose (D50w Syringe 50 Ml*) 12.5 gm IV PUSH .FOR FS < 60 - SS PRN PRN Reason: FS < 60 Fluphenazine HCl (Prolixin Tab*) 5 mg PO Q6H PRN PRN Reason: CONFUSION Last Admin: 07/24/16 10:02 Dose: 5 mg Fluphenazine HCl (Prolixin Tab*) 5 mg PO BID [facility] Last Admin: 07/26/16 08:42 Dose: 5 mg Furosemide (Lasix Tab*) 20 mg PO DAILY [facility] Last Admin: 07/26/16 08:42 Dose: 20 mg Glipizide (Glucotrol Tab*) 5 mg PO BID [facility] Last Admin: 07/26/16 08:41 Dose: 5 mg Insulin Human Lispro (Humalog*) 0 units SUBCUT [facility] PRN Reason: Protocol Last Admin: 07/26/16 12:33 Dose: 2 unit Levothyroxine Sodium (Synthroid Tab*) 112 mcg PO DAILY [facility] Last Admin: 07/26/16 08:41 Dose: 112 mcg Lisinopril (Prinivil Tab*) 10 mg PO DAILY [facility] Last Admin: 07/26/16 08:41 Dose: 10 mg Mometasone Furoate/Formoterol Fumar (Dulera 200/5 Mdi*) 2 puff INH BID [facility] Last Admin: 07/26/16 09:55 Dose: 2 puff Nicotine (Nicotine Inhaler*) 10 mg INH Q2H PRN PRN Reason: CRAVING Olanzapine (Zyprexa Tab*) 20 mg PO BEDTIME [facility] Last Admin: 07/25/16 20:43 Dose: 20 mg Ondansetron HCl (Zofran Inj*) 4 mg IV Q4H PRN PRN Reason: NAUSEA/VOMITING Paliperidone Palmitate (Invega Sustenna*) 156 mg IM Q30D [facility] Last Admin: 07/19/16 21:03 Dose: 156 mg Polyethylene Glycol/Electrolytes (Miralax*) 17 gm PO DAILY [facility] Last Admin: 07/26/16 08:42 Dose: 17 gm Rivaroxaban (Xarelto(*)) 15 mg PO BID [facility] Last Admin: 07/26/16 08:41 Dose: 15 mg Sertraline HCl (Zoloft*) 200 mg PO DAILY [facility] Last Admin: 07/26/16 08:41 Dose: 200 mg Trazodone HCl (Desyrel Tab*) 50 mg PO BEDTIME PRN PRN Reason: SLEEP Last Admin: 07/25/16 23:47 Dose: 50 mg Vital Signs 07/25/16 07/25/16 07/25/16 15:30 19:37 23:56 Temperature 98.3 F 97.8 F Pulse Rate 97 80 Respiratory 19 18 Rate Blood Pressure 131/64 133/48 (mmHg) O2 Sat by Pulse 93 93 Oximetry 07/26/16 07/26/16 07/26/16 07:27 07:57 09:57 Temperature 97.7 F Pulse Rate 65 66 Respiratory 14 18 14 Rate Blood Pressure 101/42 (mmHg) O2 Sat by Pulse 96 98 Oximetry Oxygen Devices in Use Now: None Appearance: Middle-aged, morbidly obese, M, laying in bed in NAD Eyes: No Scleral Icterus Ears/Nose/Mouth/Throat: Mucous Membranes Moist Neck: NL Appearance and Movements; NL JVP Respiratory: Symmetrical Chest Expansion and Respiratory Effort, Clear to Auscultation Cardiovascular: NL Sounds; No Murmurs; No JVD, RRR Abdominal: - - Obese, soft, NTND, BS+ Lymphatic: No Cervical Adenopathy Extremities: No Edema Skin: No Rash or Ulcers Neurological: - - Alert, oriented, disorganized thoughts Result Diagrams: 07/22/16 05:30 07/22/16 05:30 Additional Lab and Data: Assess/Plan/Problems-Billing Assessment: 56 yo man with disorganized thoughts / altered mental status -- which is an unusual manifestation of his schizophrenia/bipolar disease. At the same time, no clear medical explanation for his presentation either. - Patient Problems (1) Altered mental status Current Visit: No Comment: Improved but still not able to function at home. - had resolved quickly in previous admissions; though there was a known acute illnesses (COPD exacerbation and/or PE) - methylmalonic acid level pending. ESR 29, CRP 9.66. NH3 52 (high nl). Syphillis IgG neg. - Started fluphenazine 5 mg bid 07/[address] Garibay. - MRI brain negative - Dr. Garibay feels patient is appropriate for Psych unit, awaiting bed availability (2) Pulmonary embolism Current Visit: No Comment: Rivaroxaban 15 mg bid, change to 20 mg daily . (3) Schizo affective schizophrenia Current Visit: No Comment: Appreciate psych input. Continue current regimen. (4) Morbid obesity Current Visit: No Comment: BMI 51.2. (5) Constipation Current Visit: Yes Comment: PEG reduced to 17 gm daily on 07/22. (6) DM type 2 (diabetes mellitus, type 2) Current Visit: No Comment: Linagliptin not available, doing OK on glipizide and HISS (7) Hypothyroidism Current Visit: No Status: Acute Comment: TSH wnl 07/19/16. (8) DVT prophylaxis Current Visit: No Comment: xarelto Status and Disposition: Awaiting psych bed availability
--- NOTE | 2016-07-26 15:16 | CONSULT ---
Identification - Patient Identification Reason for Psychiatric Consultation: Other - Thought disorganization. -: Patient is a 56 year old, M admitted on 07/20/16. - [facility] Identification Employment Status: Disabled Hx Psychiatric Hospitalization: Yes History - Objective HPI: 56 y.o. , white male with a chronic history of schizoaffective disorder presents to the hospital with confused, disorganized mentatation and inability to provide coherent history or to care for himself if discharged. Today, he remains illogical with purposeless, irrelevant speech. Lab Results: Laboratory Tests 07/21/16 07/21/16 07/21/16 05:46 05:46 05:46 WBC 8.2 RBC 4.17 Hgb 12.4 L Hct 37 L MCV 88 MCH 30 MCHC 34 RDW 14 Plt Count 179 MPV 7 L Neut % (Auto) 70.3 Lymph % (Auto) 19.8 L [place] % (Auto) 7.0 Eos % (Auto) 2.5 Baso % (Auto) 0.4 Absolute Neuts (auto) 5.8 Absolute Lymphs (auto) 1.6 Absolute Monos (auto) 0.6 Absolute Eos (auto) 0.2 Absolute Basos (auto) 0 Absolute Nucleated RBC 0.01 Nucleated RBC % 0.1 ESR 29 H VBG pH VBG pCO2 VBG pO2 VBG HCO3 VBG O2 Saturation VBG Base Excess Sodium 135 Potassium 4.1 Chloride 101 Carbon Dioxide 29 Anion Gap 5 BUN 15 Creatinine 0.62 L Est GFR ( Amer) 172.6 Est GFR (Non-Af Amer) 134.2 BUN/Creatinine Ratio 24.2 H Glucose 159 H POC Glucose (mg/dL) Hemoglobin A1c Calcium 8.9 Ammonia C-Reactive Protein 9.66 H Vitamin B12 232 Methylmalonic Acid Syphilis IgG Antibody Nonreactive 07/21/16 07/21/16 07/21/16 05:46 06:11 16:38 WBC RBC Hgb Hct MCV MCH MCHC RDW Plt Count MPV Neut % (Auto) Lymph % (Auto) Loup % (Auto) Eos % (Auto) Baso % (Auto) Absolute Neuts (auto) Absolute Lymphs (auto) Absolute Monos (auto) Absolute Eos (auto) Absolute Basos (auto) Absolute Nucleated RBC Nucleated RBC % ESR VBG pH 7.39 VBG pCO2 54 H VBG pO2 65 H VBG HCO3 29.8 H VBG O2 Saturation 95.4 H VBG Base Excess 6.4 H Sodium Potassium Chloride Carbon Dioxide Anion Gap BUN Creatinine Est GFR ( Amer) Est GFR (Non-Af Amer) BUN/Creatinine Ratio Glucose POC Glucose (mg/dL) 139 H Hemoglobin A1c 7.4 H Calcium Ammonia C-Reactive Protein Vitamin B12 Methylmalonic Acid Syphilis IgG Antibody 07/22/16 07/22/16 07/22/16 05:29 05:29 05:30 WBC 8.6 RBC 4.28 Hgb 12.8 L Hct 38 L MCV 89 MCH 30 MCHC 34 RDW 14 Plt Count 207 MPV 7 L Neut % (Auto) 72.0 Lymph % (Auto) 20.8 L [place] % (Auto) 4.4 Eos % (Auto) 1.8 Baso % (Auto) 1.0 Absolute Neuts (auto) 6.2 Absolute Lymphs (auto) 1.8 Absolute Monos (auto) 0.4 Absolute Eos (auto) 0.2 Absolute Basos (auto) 0.1 Absolute Nucleated RBC 0.01 Nucleated RBC % 0.1 ESR VBG pH 7.43 VBG pCO2 47 VBG pO2 75 H VBG HCO3 29.5 H VBG O2 Saturation 97.2 H VBG Base Excess 5.9 H Sodium Potassium Chloride Carbon Dioxide Anion Gap BUN Creatinine Est GFR ( Amer) Est GFR (Non-Af Amer) BUN/Creatinine Ratio Glucose POC Glucose (mg/dL) Hemoglobin A1c Calcium Ammonia 52 C-Reactive Protein Vitamin B12 Methylmalonic Acid Syphilis IgG Antibody 07/22/16 07/22/16 07/22/16 05:30 10:42 12:10 WBC RBC Hgb Hct MCV MCH MCHC RDW Plt Count MPV Neut % (Auto) Lymph % (Auto) Loup % (Auto) Eos % (Auto) Baso % (Auto) Absolute Neuts (auto) Absolute Lymphs (auto) Absolute Monos (auto) Absolute Eos (auto) Absolute Basos (auto) Absolute Nucleated RBC Nucleated RBC % ESR VBG pH VBG pCO2 VBG pO2 VBG HCO3 VBG O2 Saturation VBG Base Excess Sodium 135 Potassium 4.3 Chloride 101 Carbon Dioxide 29 Anion Gap 5 BUN 13 Creatinine 0.63 L Est GFR ( Amer) 169.4 Est GFR (Non-Af Amer) 131.7 BUN/Creatinine Ratio 20.6 H Glucose 159 H POC Glucose (mg/dL) 138 H Hemoglobin A1c Calcium 9.1 Ammonia C-Reactive Protein Vitamin B12 Methylmalonic Acid 0.38 Syphilis IgG Antibody 07/22/16 07/23/16 07/23/16 16:01 07:34 12:36 WBC RBC Hgb Hct MCV MCH MCHC RDW Plt Count MPV Neut % (Auto) Lymph % (Auto) Loup % (Auto) Eos % (Auto) Baso % (Auto) Absolute Neuts (auto) Absolute Lymphs (auto) Absolute Monos (auto) Absolute Eos (auto) Absolute Basos (auto) Absolute Nucleated RBC Nucleated RBC % ESR VBG pH VBG pCO2 VBG pO2 VBG HCO3 VBG O2 Saturation VBG Base Excess Sodium Potassium Chloride Carbon Dioxide Anion Gap BUN Creatinine Est GFR ( Amer) Est GFR (Non-Af Amer) BUN/Creatinine Ratio Glucose POC Glucose (mg/dL) 112 H 168 H 88 Hemoglobin A1c Calcium Ammonia C-Reactive Protein Vitamin B12 Methylmalonic Acid Syphilis IgG Antibody 07/23/16 07/24/16 07/24/16 17:53 07:43 12:00 WBC RBC Hgb Hct MCV MCH MCHC RDW Plt Count MPV Neut % (Auto) Lymph % (Auto) Loup % (Auto) Eos % (Auto) Baso % (Auto) Absolute Neuts (auto) Absolute Lymphs (auto) Absolute Monos (auto) Absolute Eos (auto) Absolute Basos (auto) Absolute Nucleated RBC Nucleated RBC % ESR VBG pH VBG pCO2 VBG pO2 VBG HCO3 VBG O2 Saturation VBG Base Excess Sodium Potassium Chloride Carbon Dioxide Anion Gap BUN Creatinine Est GFR ( Amer) Est GFR (Non-Af Amer) BUN/Creatinine Ratio Glucose POC Glucose (mg/dL) 176 H 184 H 171 H Hemoglobin A1c Calcium Ammonia C-Reactive Protein Vitamin B12 Methylmalonic Acid Syphilis IgG Antibody 07/24/16 07/25/16 07/25/16 16:31 07:23 12:09 WBC RBC Hgb Hct MCV MCH MCHC RDW Plt Count MPV Neut % (Auto) Lymph % (Auto) [place] % (Auto) Eos % (Auto) Baso % (Auto) Absolute Neuts (auto) Absolute Lymphs (auto) Absolute Monos (auto) Absolute Eos (auto) Absolute Basos (auto) Absolute Nucleated RBC Nucleated RBC % ESR VBG pH VBG pCO2 VBG pO2 VBG HCO3 VBG O2 Saturation VBG Base Excess Sodium Potassium Chloride Carbon Dioxide Anion Gap BUN Creatinine Est GFR ( Amer) Est GFR (Non-Af Amer) BUN/Creatinine Ratio Glucose POC Glucose (mg/dL) 118 H 167 H 80 Hemoglobin A1c Calcium Ammonia C-Reactive Protein Vitamin B12 Methylmalonic Acid Syphilis IgG Antibody 07/25/16 07/26/16 07/26/16 16:47 07:47 12:02 WBC RBC Hgb Hct MCV MCH MCHC RDW Plt Count MPV Neut % (Auto) Lymph % (Auto) [place] % (Auto) Eos % (Auto) Baso % (Auto) Absolute Neuts (auto) Absolute Lymphs (auto) Absolute Monos (auto) Absolute Eos (auto) Absolute Basos (auto) Absolute Nucleated RBC Nucleated RBC % ESR VBG pH VBG pCO2 VBG pO2 VBG HCO3 VBG O2 Saturation VBG Base Excess Sodium Potassium Chloride Carbon Dioxide Anion Gap BUN Creatinine Est GFR ( Amer) Est GFR (Non-Af Amer) BUN/Creatinine Ratio Glucose POC Glucose (mg/dL) 140 H 162 H 140 H Hemoglobin A1c Calcium Ammonia C-Reactive Protein Vitamin B12 Methylmalonic Acid Syphilis IgG Antibody Exam Appearance: Obese Hygiene: Normal Grooming: Disheveled Psychomotor Activities: Normal Exhibits Abnormal Movement: No Attitude and Relatedness: Psychotically Related Eye Contact: Fair - Speech Quality: Unpressured Latencies: Normal Quantity: Copious Patient's Decription of Mood: "Okay" Observed Affect: Fair Affect Consistent with: Euthymia Patient's Thought Process: Disorganized, Loose Associations Thought Content: No Passive Wish, No Suicidal Planning, No Homicidal Ideation, No Paranoid Ideation Experiencing Hallucinations: No, Sensorium is Clear Type of Hallucinations: Visual: No, Auditory: No, Command: No Level of Consciousness: Alert Orientation: No Intact, No Orientated to Time, No Orientated to Place, No Orientated to Person Impulse Control: Poor Insight and Judgement: Impaired Impression - Impression Clinical Impression: 56 y.o. 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 Although he does have a documented, active PE, no other organic cause of confusion can be found. His MRI of the head shows no focal abnormalities. Merits Inpatient Hospitalization: Yes Plan - Treatment Plan Treatment Plan: Patient presents with continued psychosis. His MRI is within normal limits and would seem to rule out overt organicity. He has not adequately responded yet to the addition of scheduled fluphenazine twice daily. My feeling at this time is that he would not be safe at home if discharged and, now that medically cleared, would benefit from transfer to the [facility] on [facility]. I discussed the case with hospitalist, Jhonatan Foote, and he is in agreement. We await male bed availability. Psychiatry will continue to follow closely. Continued Medication Management: Different Medication Medications: Current Medications Acetaminophen (Tylenol Tab*) 650 mg PO Q4H PRN PRN Reason: FEVER/PAIN Last Admin: 07/23/16 21:17 Dose: 650 mg Albuterol (Ventolin Hfa Inhaler*) 2 puff INH Q4H PRN PRN Reason: SHORTNESS OF BREATH Dextrose (D50w Syringe 50 Ml*) 12.5 gm IV PUSH .FOR FS < 60 - SS PRN PRN Reason: FS < 60 Fluphenazine HCl (Prolixin Tab*) 5 mg PO Q6H PRN PRN Reason: CONFUSION Last Admin: 07/24/16 10:02 Dose: 5 mg Fluphenazine HCl (Prolixin Tab*) 5 mg PO BID [facility] Last Admin: 07/26/16 08:42 Dose: 5 mg Furosemide (Lasix Tab*) 20 mg PO DAILY [facility] Last Admin: 07/26/16 08:42 Dose: 20 mg Glipizide (Glucotrol Tab*) 5 mg PO BID [facility] Last Admin: 07/26/16 08:41 Dose: 5 mg Insulin Human Lispro (Humalog*) 0 units SUBCUT [facility] PRN Reason: Protocol Last Admin: 07/26/16 12:33 Dose: 2 unit Levothyroxine Sodium (Synthroid Tab*) 112 mcg PO DAILY [facility] Last Admin: 07/26/16 08:41 Dose: 112 mcg Lisinopril (Prinivil Tab*) 10 mg PO DAILY [facility] Last Admin: 07/26/16 08:41 Dose: 10 mg Mometasone Furoate/Formoterol Fumar (Dulera 200/5 Mdi*) 2 puff INH BID [facility] Last Admin: 07/26/16 09:55 Dose: 2 puff Nicotine (Nicotine Inhaler*) 10 mg INH Q2H PRN PRN Reason: CRAVING Olanzapine (Zyprexa Tab*) 20 mg PO BEDTIME [facility] Last Admin: 07/25/16 20:43 Dose: 20 mg Ondansetron HCl (Zofran Inj*) 4 mg IV Q4H PRN PRN Reason: NAUSEA/VOMITING Paliperidone Palmitate (Invega Sustenna*) 156 mg IM Q30D [facility] Last Admin: 07/19/16 21:03 Dose: 156 mg Polyethylene Glycol/Electrolytes (Miralax*) 17 gm PO DAILY [facility] Last Admin: 07/26/16 08:42 Dose: 17 gm Rivaroxaban (Xarelto(*)) 15 mg PO BID [facility] Last Admin: 07/26/16 08:41 Dose: 15 mg Sertraline HCl (Zoloft*) 200 mg PO DAILY [facility] Last Admin: 07/26/16 08:41 Dose: 200 mg Trazodone HCl (Desyrel Tab*) 50 mg PO BEDTIME PRN PRN Reason: SLEEP Last Admin: 07/25/16 23:47 Dose: 50 mg - Discharge Plan Discharge Plan: Inpatient Hospitalization
[2016-07-26] MEDS: OLANzapine TAB* 10 MG PO SCH (20:13)
[2016-07-27] MEDS: Mometasone/Formoter 200/5 MDI INH SCH ×2 (07:38→20:12)
[2016-07-27] MEDS: glipiZIDE TAB* 5 MG PO SCH ×2 (08:54→17:27)
[2016-07-27] MEDS: Insulin LISPRO* 1 UNITS UNIT SUBCUT SCH ×3 (08:55→17:27)
[2016-07-27] MEDS: Lisinopril TAB* 10 MG PO SCH (09:38)
[2016-07-27] MEDS: Sertraline* 100 MG TAB PO SCH (09:38)
[2016-07-27] MEDS: Polyethylene Glycol 3350* 17 GM PACKET PO SCH (09:38)
[2016-07-27] MEDS: fluPHENAZine HCL TAB* 5 MG PO SCH ×2 (09:39→22:43)
[2016-07-27] MEDS: Rivaroxaban TAB(*) 15 MG PO SCH ×2 (09:39→22:43)
[2016-07-27] MEDS: Furosemide TAB* 20 MG PO SCH (09:39)
[2016-07-27] MEDS: Levothyroxine TAB* 112 MCG TAB PO SCH (09:39)
--- NOTE | 2016-07-27 12:27 | CONSULT ---
Identification - Patient Identification Reason for Psychiatric Consultation: Other - Thought disorganization -: Patient is a 56 year old, M admitted on 07/20/16. - MHU Identification Employment Status: Disabled Hx Psychiatric Hospitalization: Yes History - Objective HPI: 56 y.o. , white male with a chronic history of schizoaffective disorder presents to the hospital with confused, disorganized mentatation and inability to provide coherent history or to care for himself if discharged. Today, Mr. Mccallum's orientation to time and place seem improved. He correctly states the date, month, year and season, as well as the town, county, State, facility name and floor. In spite of this, however, his spontaneous speech is largely irrelevant. He states that he would not be willing to come down to the psychiatric unit voluntarily. "Oh, no. I've been there before. You come in, they write everything down and they make sure you put the right stickers on the cabinet doors!" Lab Results: Laboratory Tests 07/21/16 07/21/16 07/21/16 05:46 05:46 05:46 WBC 8.2 RBC 4.17 Hgb 12.4 L Hct 37 L MCV 88 MCH 30 MCHC 34 RDW 14 Plt Count 179 MPV 7 L Neut % (Auto) 70.3 Lymph % (Auto) 19.8 L Troup % (Auto) 7.0 Eos % (Auto) 2.5 Baso % (Auto) 0.4 Absolute Neuts (auto) 5.8 Absolute Lymphs (auto) 1.6 Absolute Monos (auto) 0.6 Absolute Eos (auto) 0.2 Absolute Basos (auto) 0 Absolute Nucleated RBC 0.01 Nucleated RBC % 0.1 ESR 29 H VBG pH VBG pCO2 VBG pO2 VBG HCO3 VBG O2 Saturation VBG Base Excess Sodium 135 Potassium 4.1 Chloride 101 Carbon Dioxide 29 Anion Gap 5 BUN 15 Creatinine 0.62 L Est GFR ( Amer) 172.6 Est GFR (Non-Af Amer) 134.2 BUN/Creatinine Ratio 24.2 H Glucose 159 H POC Glucose (mg/dL) Hemoglobin A1c Calcium 8.9 Ammonia C-Reactive Protein 9.66 H Vitamin B12 232 Methylmalonic Acid Syphilis IgG Antibody Nonreactive 07/21/16 07/21/16 07/21/16 05:46 06:11 16:38 WBC RBC Hgb Hct MCV MCH MCHC RDW Plt Count MPV Neut % (Auto) Lymph % (Auto) Troup % (Auto) Eos % (Auto) Baso % (Auto) Absolute Neuts (auto) Absolute Lymphs (auto) Absolute Monos (auto) Absolute Eos (auto) Absolute Basos (auto) Absolute Nucleated RBC Nucleated RBC % ESR VBG pH 7.39 VBG pCO2 54 H VBG pO2 65 H VBG HCO3 29.8 H VBG O2 Saturation 95.4 H VBG Base Excess 6.4 H Sodium Potassium Chloride Carbon Dioxide Anion Gap BUN Creatinine Est GFR ( Amer) Est GFR (Non-Af Amer) BUN/Creatinine Ratio Glucose POC Glucose (mg/dL) 139 H Hemoglobin A1c 7.4 H Calcium Ammonia C-Reactive Protein Vitamin B12 Methylmalonic Acid Syphilis IgG Antibody 07/22/16 07/22/16 07/22/16 05:29 05:29 05:30 WBC 8.6 RBC 4.28 Hgb 12.8 L Hct 38 L MCV 89 MCH 30 MCHC 34 RDW 14 Plt Count 207 MPV 7 L Neut % (Auto) 72.0 Lymph % (Auto) 20.8 L Troup % (Auto) 4.4 Eos % (Auto) 1.8 Baso % (Auto) 1.0 Absolute Neuts (auto) 6.2 Absolute Lymphs (auto) 1.8 Absolute Monos (auto) 0.4 Absolute Eos (auto) 0.2 Absolute Basos (auto) 0.1 Absolute Nucleated RBC 0.01 Nucleated RBC % 0.1 ESR VBG pH 7.43 VBG pCO2 47 VBG pO2 75 H VBG HCO3 29.5 H VBG O2 Saturation 97.2 H VBG Base Excess 5.9 H Sodium Potassium Chloride Carbon Dioxide Anion Gap BUN Creatinine Est GFR ( Amer) Est GFR (Non-Af Amer) BUN/Creatinine Ratio Glucose POC Glucose (mg/dL) Hemoglobin A1c Calcium Ammonia 52 C-Reactive Protein Vitamin B12 Methylmalonic Acid Syphilis IgG Antibody 07/22/16 07/22/16 07/22/16 05:30 10:42 12:10 WBC RBC Hgb Hct MCV MCH MCHC RDW Plt Count MPV Neut % (Auto) Lymph % (Auto) Troup % (Auto) Eos % (Auto) Baso % (Auto) Absolute Neuts (auto) Absolute Lymphs (auto) Absolute Monos (auto) Absolute Eos (auto) Absolute Basos (auto) Absolute Nucleated RBC Nucleated RBC % ESR VBG pH VBG pCO2 VBG pO2 VBG HCO3 VBG O2 Saturation VBG Base Excess Sodium 135 Potassium 4.3 Chloride 101 Carbon Dioxide 29 Anion Gap 5 BUN 13 Creatinine 0.63 L Est GFR ( Amer) 169.4 Est GFR (Non-Af Amer) 131.7 BUN/Creatinine Ratio 20.6 H Glucose 159 H POC Glucose (mg/dL) 138 H Hemoglobin A1c Calcium 9.1 Ammonia C-Reactive Protein Vitamin B12 Methylmalonic Acid 0.38 Syphilis IgG Antibody 07/22/16 07/23/16 07/23/16 16:01 07:34 12:36 WBC RBC Hgb Hct MCV MCH MCHC RDW Plt Count MPV Neut % (Auto) Lymph % (Auto) Troup % (Auto) Eos % (Auto) Baso % (Auto) Absolute Neuts (auto) Absolute Lymphs (auto) Absolute Monos (auto) Absolute Eos (auto) Absolute Basos (auto) Absolute Nucleated RBC Nucleated RBC % ESR VBG pH VBG pCO2 VBG pO2 VBG HCO3 VBG O2 Saturation VBG Base Excess Sodium Potassium Chloride Carbon Dioxide Anion Gap BUN Creatinine Est GFR ( Amer) Est GFR (Non-Af Amer) BUN/Creatinine Ratio Glucose POC Glucose (mg/dL) 112 H 168 H 88 Hemoglobin A1c Calcium Ammonia C-Reactive Protein Vitamin B12 Methylmalonic Acid Syphilis IgG Antibody 07/23/16 07/24/16 07/24/16 17:53 07:43 12:00 WBC RBC Hgb Hct MCV MCH MCHC RDW Plt Count MPV Neut % (Auto) Lymph % (Auto) Troup % (Auto) Eos % (Auto) Baso % (Auto) Absolute Neuts (auto) Absolute Lymphs (auto) Absolute Monos (auto) Absolute Eos (auto) Absolute Basos (auto) Absolute Nucleated RBC Nucleated RBC % ESR VBG pH VBG pCO2 VBG pO2 VBG HCO3 VBG O2 Saturation VBG Base Excess Sodium Potassium Chloride Carbon Dioxide Anion Gap BUN Creatinine Est GFR ( Amer) Est GFR (Non-Af Amer) BUN/Creatinine Ratio Glucose POC Glucose (mg/dL) 176 H 184 H 171 H Hemoglobin A1c Calcium Ammonia C-Reactive Protein Vitamin B12 Methylmalonic Acid Syphilis IgG Antibody 07/24/16 07/25/16 07/25/16 16:31 07:23 12:09 WBC RBC Hgb Hct MCV MCH MCHC RDW Plt Count MPV Neut % (Auto) Lymph % (Auto) Troup % (Auto) Eos % (Auto) Baso % (Auto) Absolute Neuts (auto) Absolute Lymphs (auto) Absolute Monos (auto) Absolute Eos (auto) Absolute Basos (auto) Absolute Nucleated RBC Nucleated RBC % ESR VBG pH VBG pCO2 VBG pO2 VBG HCO3 VBG O2 Saturation VBG Base Excess Sodium Potassium Chloride Carbon Dioxide Anion Gap BUN Creatinine Est GFR ( Amer) Est GFR (Non-Af Amer) BUN/Creatinine Ratio Glucose POC Glucose (mg/dL) 118 H 167 H 80 Hemoglobin A1c Calcium Ammonia C-Reactive Protein Vitamin B12 Methylmalonic Acid Syphilis IgG Antibody 07/25/16 07/26/16 07/26/16 16:47 07:47 12:02 WBC RBC Hgb Hct MCV MCH MCHC RDW Plt Count MPV Neut % (Auto) Lymph % (Auto) Troup % (Auto) Eos % (Auto) Baso % (Auto) Absolute Neuts (auto) Absolute Lymphs (auto) Absolute Monos (auto) Absolute Eos (auto) Absolute Basos (auto) Absolute Nucleated RBC Nucleated RBC % ESR VBG pH VBG pCO2 VBG pO2 VBG HCO3 VBG O2 Saturation VBG Base Excess Sodium Potassium Chloride Carbon Dioxide Anion Gap BUN Creatinine Est GFR ( Amer) Est GFR (Non-Af Amer) BUN/Creatinine Ratio Glucose POC Glucose (mg/dL) 140 H 162 H 140 H Hemoglobin A1c Calcium Ammonia C-Reactive Protein Vitamin B12 Methylmalonic Acid Syphilis IgG Antibody 07/26/16 07/27/16 16:47 07:46 WBC RBC Hgb Hct MCV MCH MCHC RDW Plt Count MPV Neut % (Auto) Lymph % (Auto) [place]oup % (Auto) Eos % (Auto) Baso % (Auto) Absolute Neuts (auto) Absolute Lymphs (auto) Absolute Monos (auto) Absolute Eos (auto) Absolute Basos (auto) Absolute Nucleated RBC Nucleated RBC % ESR VBG pH VBG pCO2 VBG pO2 VBG HCO3 VBG O2 Saturation VBG Base Excess Sodium Potassium Chloride Carbon Dioxide Anion Gap BUN Creatinine Est GFR ( Amer) Est GFR (Non-Af Amer) BUN/Creatinine Ratio Glucose POC Glucose (mg/dL) 240 H 168 H Hemoglobin A1c Calcium Ammonia C-Reactive Protein Vitamin B12 Methylmalonic Acid Syphilis IgG Antibody Exam Appearance: Obese Hygiene: Normal Grooming: Disheveled Psychomotor Activities: Normal Exhibits Abnormal Movement: No Attitude and Relatedness: Psychotically Related Eye Contact: Fair - Speech Quality: Unpressured Latencies: Normal Quantity: Copious Patient's Decription of Mood: "Okay" Observed Affect: Fair Affect Consistent with: Euthymia Patient's Thought Process: Disorganized, Loose Associations Thought Content: No Passive Wish, No Suicidal Planning, No Homicidal Ideation, No Paranoid Ideation Experiencing Hallucinations: No, Sensorium is Clear Type of Hallucinations: Visual: No, Auditory: No, Command: No Level of Consciousness: Alert Orientation: No Intact, No Orientated to Time, No Orientated to Place, No Orientated to Person Impulse Control: Poor Insight and Judgement: Impaired Impression - Impression Clinical Impression: 56 y.o. 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 Although he does have a documented, active PE, no other organic cause of confusion can be found. His MRI of the head shows no focal abnormalities. Merits Inpatient Hospitalization: Yes Plan - Treatment Plan Treatment Plan: Patient presents with continued psychosis and is currently awaiting the availability of a male bed for transfer. I don't feel he would be safe being discharged to the community, given his impaired cognition, and would recommend a 2PC process if the patient is unwilling to sign in voluntarily when a bed becomes open. He seems to be tolerating the addition of fluphenazine 5mg PO BID to his existing regimen well. Psychiatry will continue to follow closely. Continued Medication Management: Different Medication Medications: Current Medications Acetaminophen (Tylenol Tab*) 650 mg PO Q4H PRN PRN Reason: FEVER/PAIN Last Admin: 07/23/16 21:17 Dose: 650 mg Albuterol (Ventolin Hfa Inhaler*) 2 puff INH Q4H PRN PRN Reason: SHORTNESS OF BREATH Dextrose (D50w Syringe 50 Ml*) 12.5 gm IV PUSH .FOR FS < 60 - SS PRN PRN Reason: FS < 60 Fluphenazine HCl (Prolixin Tab*) 5 mg PO Q6H PRN PRN Reason: CONFUSION Last Admin: 07/24/16 10:02 Dose: 5 mg Fluphenazine HCl (Prolixin Tab*) 5 mg PO BID [facility] Last Admin: 07/27/16 09:39 Dose: 5 mg Furosemide (Lasix Tab*) 20 mg PO DAILY [facility] Last Admin: 07/27/16 09:39 Dose: 20 mg Glipizide (Glucotrol Tab*) 5 mg PO BID [facility] Last Admin: 07/27/16 08:54 Dose: 5 mg Insulin Human Lispro (Humalog*) 0 units SUBCUT [facility] PRN Reason: Protocol Last Admin: 07/27/16 08:55 Dose: 3 unit Levothyroxine Sodium (Synthroid Tab*) 112 mcg PO DAILY [facility] Last Admin: 07/27/16 09:39 Dose: 112 mcg Lisinopril (Prinivil Tab*) 10 mg PO DAILY [facility] Last Admin: 07/27/16 09:38 Dose: 10 mg Mometasone Furoate/Formoterol Fumar (Dulera 200/5 Mdi*) 2 puff INH BID [facility] Last Admin: 07/27/16 07:38 Dose: 2 puff Nicotine (Nicotine Inhaler*) 10 mg INH Q2H PRN PRN Reason: CRAVING Olanzapine (Zyprexa Tab*) 20 mg PO BEDTIME [facility] Last Admin: 07/26/16 20:13 Dose: 20 mg Ondansetron HCl (Zofran Inj*) 4 mg IV Q4H PRN PRN Reason: NAUSEA/VOMITING Paliperidone Palmitate (Invega Sustenna*) 156 mg IM Q30D [facility] Last Admin: 07/19/16 21:03 Dose: 156 mg Polyethylene Glycol/Electrolytes (Miralax*) 17 gm PO DAILY [facility] Last Admin: 07/27/16 09:38 Dose: 17 gm Rivaroxaban (Xarelto(*)) 15 mg PO BID [facility] Last Admin: 07/27/16 09:39 Dose: 15 mg Sertraline HCl (Zoloft*) 200 mg PO DAILY [facility] Last Admin: 07/27/16 09:38 Dose: 200 mg Trazodone HCl (Desyrel Tab*) 50 mg PO BEDTIME PRN PRN Reason: SLEEP Last Admin: 07/25/16 23:47 Dose: 50 mg - Discharge Plan Discharge Plan: Inpatient Hospitalization
--- NOTE | 2016-07-27 13:48 | PN ---
Subjective Date of Service: 07/27/16 Interval History: Patient with no specific complaints. Illogical speech. Family History: Unchanged from Admission Social History: Unchanged from Admission Past Medical History: Unchanged from Admission Objective Active Medications: Acetaminophen (Tylenol Tab*) 650 mg PO Q4H PRN Albuterol (Ventolin Hfa Inhaler*) 2 puff INH Q4H PRN Dextrose (D50w Syringe 50 Ml*) 12.5 gm IV PUSH .FOR FS < 60 - SS PRN Fluphenazine HCl (Prolixin Tab*) 5 mg PO Q6H PRN Fluphenazine HCl (Prolixin Tab*) 5 mg PO BID [facility] Furosemide (Lasix Tab*) 20 mg PO DAILY [facility] Glipizide (Glucotrol Tab*) 5 mg PO BID AC [facility] Insulin Human Lispro (Humalog*) 0 units SUBCUT [facility] Levothyroxine Sodium (Synthroid Tab*) 112 mcg PO DAILY [facility] Lisinopril (Prinivil Tab*) 10 mg PO DAILY [facility] Mometasone Furoate/Formoterol Fumar (Dulera 200/5 Mdi*) 2 puff INH BID [facility] Nicotine (Nicotine Inhaler*) 10 mg INH Q2H PRN Olanzapine (Zyprexa Tab*) 20 mg PO BEDTIME [facility] Ondansetron HCl (Zofran Inj*) 4 mg IV Q4H PRN Paliperidone Palmitate (Invega Sustenna*) 156 mg IM Q30D [facility] Polyethylene Glycol/Electrolytes (Miralax*) 17 gm PO DAILY [facility] Rivaroxaban (Xarelto(*)) 15 mg PO BID [facility] Sertraline HCl (Zoloft*) 200 mg PO DAILY [facility] Trazodone HCl (Desyrel Tab*) 50 mg PO BEDTIME PRN Vital Signs 07/26/16 07/26/16 07/26/16 15:19 20:00 23:53 Temperature 97.3 F 98.6 F Pulse Rate 91 63 Respiratory 16 16 20 Rate Blood Pressure 113/60 104/46 (mmHg) O2 Sat by Pulse 95 91 Oximetry 07/27/16 07/27/16 07/27/16 07:18 07:40 08:00 Temperature 98.2 F Pulse Rate 63 69 Respiratory 16 14 16 Rate Blood Pressure 134/65 (mmHg) O2 Sat by Pulse 97 93 Oximetry Oxygen Devices in Use Now: None Appearance: Obese, middle-aged, M, laying in bed in NAD Eyes: No Scleral Icterus Ears/Nose/Mouth/Throat: Mucous Membranes Moist Neck: NL Appearance and Movements; NL JVP Respiratory: Symmetrical Chest Expansion and Respiratory Effort, Clear to Auscultation Cardiovascular: NL Sounds; No Murmurs; No JVD, RRR Abdominal: NL Sounds; No Tenderness; No Distention Lymphatic: No Cervical Adenopathy Extremities: No Edema Skin: No Rash or Ulcers Neurological: - - Alert, oriented, no deficits Result Diagrams: 07/22/16 05:30 07/22/16 05:30 Additional Lab and Data: Assess/Plan/Problems-Billing Assessment: 56 yo man with disorganized thoughts / altered mental status -- which is an unusual manifestation of his schizophrenia/bipolar disease. At the same time, no clear medical explanation for his presentation either. - Patient Problems (1) Altered mental status Current Visit: No Comment: Improved but still not able to function at home, medical work-up negative Started fluphenazine 5 mg bid 07/[address] Garibay feels patient is appropriate for Psych unit, awaiting bed availability (2) Pulmonary embolism Current Visit: No Comment: Rivaroxaban 15 mg bid, change to 20 mg daily . (3) Schizo affective schizophrenia Current Visit: No Comment: Appreciate psych input. Continue current regimen. (4) Morbid obesity Current Visit: No Comment: BMI 51.2. (5) Constipation Current Visit: Yes Comment: PEG reduced to 17 gm daily on 07/22. (6) DM type 2 (diabetes mellitus, type 2) Current Visit: No Comment: Linagliptin not available, doing OK on glipizide and HISS (7) Hypothyroidism Current Visit: No Status: Acute Comment: TSH wnl 07/19/16. (8) DVT prophylaxis Current Visit: No Comment: xarelto Status and Disposition: Awaiting psych bed availability
[2016-07-27] MEDS: OLANzapine TAB* 10 MG PO SCH (22:43)
[2016-07-28] MEDS: Sertraline* 100 MG TAB PO SCH (08:33)
[2016-07-28] MEDS: Furosemide TAB* 20 MG PO SCH (08:33)
[2016-07-28] MEDS: fluPHENAZine HCL TAB* 5 MG PO SCH ×2 (08:33→21:42)
[2016-07-28] MEDS: Rivaroxaban TAB(*) 15 MG PO SCH ×2 (08:33→21:42)
[2016-07-28] MEDS: Levothyroxine TAB* 112 MCG TAB PO SCH (08:34)
[2016-07-28] MEDS: Insulin LISPRO* 1 UNITS UNIT SUBCUT SCH ×3 (08:34→17:52)
[2016-07-28] MEDS: glipiZIDE TAB* 5 MG PO SCH ×2 (08:34→17:53)
[2016-07-28] MEDS: Lisinopril TAB* 10 MG PO SCH (08:34)
[2016-07-28] MEDS: Mometasone/Formoter 200/5 MDI INH SCH ×2 (08:47→20:23)
[2016-07-28] MEDS: Polyethylene Glycol 3350* 17 GM PACKET PO SCH (08:59)
--- NOTE | 2016-07-28 09:07 | CONSULT ---
Identification - Patient Identification Reason for Psychiatric Consultation: Other - Thought disorganization -: Patient is a 56 year old, M admitted on 07/20/16. - MHU Identification Employment Status: Disabled Hx Psychiatric Hospitalization: Yes History - Objective HPI: 56 y.o. , white male with a chronic history of schizoaffective disorder presents to the hospital with confused, disorganized mentatation and inability to provide coherent history or to care for himself if discharged. Today, Mr. Mccallmu remains confused and slightly irritable. When performing serial 7's he correctly states that 100 minus 7 is 93, but cannot subtract any further than that and perseverates the numbers 100 and 107. "93 minus 7 is 100. I do that when I'm writing my checks. That's what you're asking me." He becomes frustrated and asks me to leave his room thereafter. Lab Results: Laboratory Tests 07/21/16 07/21/16 07/21/16 05:46 05:46 05:46 WBC 8.2 RBC 4.17 Hgb 12.4 L Hct 37 L MCV 88 MCH 30 MCHC 34 RDW 14 Plt Count 179 MPV 7 L Neut % (Auto) 70.3 Lymph % (Auto) 19.8 L [place] % (Auto) 7.0 Eos % (Auto) 2.5 Baso % (Auto) 0.4 Absolute Neuts (auto) 5.8 Absolute Lymphs (auto) 1.6 Absolute Monos (auto) 0.6 Absolute Eos (auto) 0.2 Absolute Basos (auto) 0 Absolute Nucleated RBC 0.01 Nucleated RBC % 0.1 ESR 29 H VBG pH VBG pCO2 VBG pO2 VBG HCO3 VBG O2 Saturation VBG Base Excess Sodium 135 Potassium 4.1 Chloride 101 Carbon Dioxide 29 Anion Gap 5 BUN 15 Creatinine 0.62 L Est GFR ( Amer) 172.6 Est GFR (Non-Af Amer) 134.2 BUN/Creatinine Ratio 24.2 H Glucose 159 H POC Glucose (mg/dL) Hemoglobin A1c Calcium 8.9 Ammonia C-Reactive Protein 9.66 H Vitamin B12 232 Methylmalonic Acid Syphilis IgG Antibody Nonreactive 07/21/16 07/21/16 07/21/16 05:46 06:11 16:38 WBC RBC Hgb Hct MCV MCH MCHC RDW Plt Count MPV Neut % (Auto) Lymph % (Auto) [place] % (Auto) Eos % (Auto) Baso % (Auto) Absolute Neuts (auto) Absolute Lymphs (auto) Absolute Monos (auto) Absolute Eos (auto) Absolute Basos (auto) Absolute Nucleated RBC Nucleated RBC % ESR VBG pH 7.39 VBG pCO2 54 H VBG pO2 65 H VBG HCO3 29.8 H VBG O2 Saturation 95.4 H VBG Base Excess 6.4 H Sodium Potassium Chloride Carbon Dioxide Anion Gap BUN Creatinine Est GFR ( Amer) Est GFR (Non-Af Amer) BUN/Creatinine Ratio Glucose POC Glucose (mg/dL) 139 H Hemoglobin A1c 7.4 H Calcium Ammonia C-Reactive Protein Vitamin B12 Methylmalonic Acid Syphilis IgG Antibody 07/22/16 07/22/16 07/22/16 05:29 05:29 05:30 WBC 8.6 RBC 4.28 Hgb 12.8 L Hct 38 L MCV 89 MCH 30 MCHC 34 RDW 14 Plt Count 207 MPV 7 L Neut % (Auto) 72.0 Lymph % (Auto) 20.8 L [place] % (Auto) 4.4 Eos % (Auto) 1.8 Baso % (Auto) 1.0 Absolute Neuts (auto) 6.2 Absolute Lymphs (auto) 1.8 Absolute Monos (auto) 0.4 Absolute Eos (auto) 0.2 Absolute Basos (auto) 0.1 Absolute Nucleated RBC 0.01 Nucleated RBC % 0.1 ESR VBG pH 7.43 VBG pCO2 47 VBG pO2 75 H VBG HCO3 29.5 H VBG O2 Saturation 97.2 H VBG Base Excess 5.9 H Sodium Potassium Chloride Carbon Dioxide Anion Gap BUN Creatinine Est GFR ( Amer) Est GFR (Non-Af Amer) BUN/Creatinine Ratio Glucose POC Glucose (mg/dL) Hemoglobin A1c Calcium Ammonia 52 C-Reactive Protein Vitamin B12 Methylmalonic Acid Syphilis IgG Antibody 07/22/16 07/22/16 07/22/16 05:30 10:42 12:10 WBC RBC Hgb Hct MCV MCH MCHC RDW Plt Count MPV Neut % (Auto) Lymph % (Auto) [place] % (Auto) Eos % (Auto) Baso % (Auto) Absolute Neuts (auto) Absolute Lymphs (auto) Absolute Monos (auto) Absolute Eos (auto) Absolute Basos (auto) Absolute Nucleated RBC Nucleated RBC % ESR VBG pH VBG pCO2 VBG pO2 VBG HCO3 VBG O2 Saturation VBG Base Excess Sodium 135 Potassium 4.3 Chloride 101 Carbon Dioxide 29 Anion Gap 5 BUN 13 Creatinine 0.63 L Est GFR ( Amer) 169.4 Est GFR (Non-Af Amer) 131.7 BUN/Creatinine Ratio 20.6 H Glucose 159 H POC Glucose (mg/dL) 138 H Hemoglobin A1c Calcium 9.1 Ammonia C-Reactive Protein Vitamin B12 Methylmalonic Acid 0.38 Syphilis IgG Antibody 07/22/16 07/23/16 07/23/16 16:01 07:34 12:36 WBC RBC Hgb Hct MCV MCH MCHC RDW Plt Count MPV Neut % (Auto) Lymph % (Auto) [place] % (Auto) Eos % (Auto) Baso % (Auto) Absolute Neuts (auto) Absolute Lymphs (auto) Absolute Monos (auto) Absolute Eos (auto) Absolute Basos (auto) Absolute Nucleated RBC Nucleated RBC % ESR VBG pH VBG pCO2 VBG pO2 VBG HCO3 VBG O2 Saturation VBG Base Excess Sodium Potassium Chloride Carbon Dioxide Anion Gap BUN Creatinine Est GFR ( Amer) Est GFR (Non-Af Amer) BUN/Creatinine Ratio Glucose POC Glucose (mg/dL) 112 H 168 H 88 Hemoglobin A1c Calcium Ammonia C-Reactive Protein Vitamin B12 Methylmalonic Acid Syphilis IgG Antibody 07/23/16 07/24/16 07/24/16 17:53 07:43 12:00 WBC RBC Hgb Hct MCV MCH MCHC RDW Plt Count MPV Neut % (Auto) Lymph % (Auto) [place] % (Auto) Eos % (Auto) Baso % (Auto) Absolute Neuts (auto) Absolute Lymphs (auto) Absolute Monos (auto) Absolute Eos (auto) Absolute Basos (auto) Absolute Nucleated RBC Nucleated RBC % ESR VBG pH VBG pCO2 VBG pO2 VBG HCO3 VBG O2 Saturation VBG Base Excess Sodium Potassium Chloride Carbon Dioxide Anion Gap BUN Creatinine Est GFR ( Amer) Est GFR (Non-Af Amer) BUN/Creatinine Ratio Glucose POC Glucose (mg/dL) 176 H 184 H 171 H Hemoglobin A1c Calcium Ammonia C-Reactive Protein Vitamin B12 Methylmalonic Acid Syphilis IgG Antibody 07/24/16 07/25/16 07/25/16 16:31 07:23 12:09 WBC RBC Hgb Hct MCV MCH MCHC RDW Plt Count MPV Neut % (Auto) Lymph % (Auto) [place] % (Auto) Eos % (Auto) Baso % (Auto) Absolute Neuts (auto) Absolute Lymphs (auto) Absolute Monos (auto) Absolute Eos (auto) Absolute Basos (auto) Absolute Nucleated RBC Nucleated RBC % ESR VBG pH VBG pCO2 VBG pO2 VBG HCO3 VBG O2 Saturation VBG Base Excess Sodium Potassium Chloride Carbon Dioxide Anion Gap BUN Creatinine Est GFR ( Amer) Est GFR (Non-Af Amer) BUN/Creatinine Ratio Glucose POC Glucose (mg/dL) 118 H 167 H 80 Hemoglobin A1c Calcium Ammonia C-Reactive Protein Vitamin B12 Methylmalonic Acid Syphilis IgG Antibody 07/25/16 07/26/16 07/26/16 16:47 07:47 12:02 WBC RBC Hgb Hct MCV MCH MCHC RDW Plt Count MPV Neut % (Auto) Lymph % (Auto) [place] % (Auto) Eos % (Auto) Baso % (Auto) Absolute Neuts (auto) Absolute Lymphs (auto) Absolute Monos (auto) Absolute Eos (auto) Absolute Basos (auto) Absolute Nucleated RBC Nucleated RBC % ESR VBG pH VBG pCO2 VBG pO2 VBG HCO3 VBG O2 Saturation VBG Base Excess Sodium Potassium Chloride Carbon Dioxide Anion Gap BUN Creatinine Est GFR ( Amer) Est GFR (Non-Af Amer) BUN/Creatinine Ratio Glucose POC Glucose (mg/dL) 140 H 162 H 140 H Hemoglobin A1c Calcium Ammonia C-Reactive Protein Vitamin B12 Methylmalonic Acid Syphilis IgG Antibody 07/26/16 07/27/16 07/27/16 16:47 07:46 12:29 WBC RBC Hgb Hct MCV MCH MCHC RDW Plt Count MPV Neut % (Auto) Lymph % (Auto) [place] % (Auto) Eos % (Auto) Baso % (Auto) Absolute Neuts (auto) Absolute Lymphs (auto) Absolute Monos (auto) Absolute Eos (auto) Absolute Basos (auto) Absolute Nucleated RBC Nucleated RBC % ESR VBG pH VBG pCO2 VBG pO2 VBG HCO3 VBG O2 Saturation VBG Base Excess Sodium Potassium Chloride Carbon Dioxide Anion Gap BUN Creatinine Est GFR ( Amer) Est GFR (Non-Af Amer) BUN/Creatinine Ratio Glucose POC Glucose (mg/dL) 240 H 168 H 125 H Hemoglobin A1c Calcium Ammonia C-Reactive Protein Vitamin B12 Methylmalonic Acid Syphilis IgG Antibody 07/27/16 07/28/16 17:06 07:31 WBC RBC Hgb Hct MCV MCH MCHC RDW Plt Count MPV Neut % (Auto) Lymph % (Auto) [place] % (Auto) Eos % (Auto) Baso % (Auto) Absolute Neuts (auto) Absolute Lymphs (auto) Absolute Monos (auto) Absolute Eos (auto) Absolute Basos (auto) Absolute Nucleated RBC Nucleated RBC % ESR VBG pH VBG pCO2 VBG pO2 VBG HCO3 VBG O2 Saturation VBG Base Excess Sodium Potassium Chloride Carbon Dioxide Anion Gap BUN Creatinine Est GFR ( Amer) Est GFR (Non-Af Amer) BUN/Creatinine Ratio Glucose POC Glucose (mg/dL) 185 H 169 H Hemoglobin A1c Calcium Ammonia C-Reactive Protein Vitamin B12 Methylmalonic Acid Syphilis IgG Antibody Exam Appearance: Obese Hygiene: Normal Grooming: Disheveled Psychomotor Activities: Normal Exhibits Abnormal Movement: No Attitude and Relatedness: Psychotically Related Eye Contact: Fair - Speech Quality: Unpressured Latencies: Normal Quantity: Copious Patient's Decription of Mood: "Okay" Observed Affect: Fair Affect Consistent with: Euthymia Patient's Thought Process: Disorganized, Loose Associations Thought Content: No Passive Wish, No Suicidal Planning, No Homicidal Ideation, No Paranoid Ideation Experiencing Hallucinations: No, Sensorium is Clear Type of Hallucinations: Visual: No, Auditory: No, Command: No Level of Consciousness: Alert Orientation: No Intact, No Orientated to Time, No Orientated to Place, No Orientated to Person Impulse Control: Poor Insight and Judgement: Impaired Impression - Impression Clinical Impression: 56 y.o. 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 Although he does have a documented, active PE, no other organic cause of confusion can be found. His MRI of the head shows no focal abnormalities. Merits Inpatient Hospitalization: Yes Plan - Treatment Plan Treatment Plan: Patient presents with continued psychosis and is currently awaiting the availability of a male bed for transfer. I don't feel he would be safe being discharged to the community, given his impaired cognition, and would recommend a 2PC process if the patient is unwilling to sign in voluntarily when a bed becomes open. He seems to be tolerating the addition of fluphenazine 5mg PO BID to his existing regimen well. Psychiatry will continue to follow closely. Continued Medication Management: Different Medication Medications: Current Medications Acetaminophen (Tylenol Tab*) 650 mg PO Q4H PRN PRN Reason: FEVER/PAIN Last Admin: 07/23/16 21:17 Dose: 650 mg Albuterol (Ventolin Hfa Inhaler*) 2 puff INH Q4H PRN PRN Reason: SHORTNESS OF BREATH Dextrose (D50w Syringe 50 Ml*) 12.5 gm IV PUSH .FOR FS < 60 - SS PRN PRN Reason: FS < 60 Fluphenazine HCl (Prolixin Tab*) 5 mg PO Q6H PRN PRN Reason: CONFUSION Last Admin: 07/24/16 10:02 Dose: 5 mg Fluphenazine HCl (Prolixin Tab*) 5 mg PO BID [facility] Last Admin: 07/28/16 08:33 Dose: 5 mg Furosemide (Lasix Tab*) 20 mg PO DAILY [facility] Last Admin: 07/28/16 08:33 Dose: 20 mg Glipizide (Glucotrol Tab*) 5 mg PO BID [facility] Last Admin: 07/28/16 08:34 Dose: 5 mg Insulin Human Lispro (Humalog*) 0 units SUBCUT [facility] PRN Reason: Protocol Last Admin: 07/28/16 08:34 Dose: 3 unit Levothyroxine Sodium (Synthroid Tab*) 112 mcg PO DAILY [facility] Last Admin: 07/28/16 08:34 Dose: 112 mcg Lisinopril (Prinivil Tab*) 10 mg PO DAILY [facility] Last Admin: 07/28/16 08:34 Dose: 10 mg Mometasone Furoate/Formoterol Fumar (Dulera 200/5 Mdi*) 2 puff INH BID [facility] Last Admin: 07/28/16 08:47 Dose: 2 puff Nicotine (Nicotine Inhaler*) 10 mg INH Q2H PRN PRN Reason: CRAVING Olanzapine (Zyprexa Tab*) 20 mg PO BEDTIME [facility] Last Admin: 07/27/16 22:43 Dose: 20 mg Ondansetron HCl (Zofran Inj*) 4 mg IV Q4H PRN PRN Reason: NAUSEA/VOMITING Paliperidone Palmitate (Invega Sustenna*) 156 mg IM Q30D [facility] Last Admin: 07/19/16 21:03 Dose: 156 mg Polyethylene Glycol/Electrolytes (Miralax*) 17 gm PO DAILY [facility] Last Admin: 07/28/16 08:59 Dose: Not Given Rivaroxaban (Xarelto(*)) 15 mg PO BID [facility] Last Admin: 07/28/16 08:33 Dose: 15 mg Sertraline HCl (Zoloft*) 200 mg PO DAILY [facility] Last Admin: 07/28/16 08:33 Dose: 200 mg Trazodone HCl (Desyrel Tab*) 50 mg PO BEDTIME PRN PRN Reason: SLEEP Last Admin: 07/25/16 23:47 Dose: 50 mg - Discharge Plan Discharge Plan: Inpatient Hospitalization
--- NOTE | 2016-07-28 13:50 | PN ---
Subjective Date of Service: 07/28/16 Interval History: Patient seen this morning. No new complaints. When told about waiting for a bed to open on Psych unit he stated "Well when am I going to get my haircut?" Family History: Unchanged from Admission Social History: Unchanged from Admission Past Medical History: Unchanged from Admission Objective Active Medications: Acetaminophen (Tylenol Tab*) 650 mg PO Q4H PRN PRN Reason: FEVER/PAIN Last Admin: 07/23/16 21:17 Dose: 650 mg Albuterol (Ventolin Hfa Inhaler*) 2 puff INH Q4H PRN PRN Reason: SHORTNESS OF BREATH Dextrose (D50w Syringe 50 Ml*) 12.5 gm IV PUSH .FOR FS < 60 - SS PRN PRN Reason: FS < 60 Fluphenazine HCl (Prolixin Tab*) 5 mg PO Q6H PRN PRN Reason: CONFUSION Last Admin: 07/24/16 10:02 Dose: 5 mg Fluphenazine HCl (Prolixin Tab*) 5 mg PO BID [facility] Last Admin: 07/28/16 08:33 Dose: 5 mg Furosemide (Lasix Tab*) 20 mg PO DAILY [facility] Last Admin: 07/28/16 08:33 Dose: 20 mg Glipizide (Glucotrol Tab*) 5 mg PO BID [facility] Last Admin: 07/28/16 08:34 Dose: 5 mg Insulin Human Lispro (Humalog*) 0 units SUBCUT [facility] PRN Reason: Protocol Last Admin: 07/28/16 12:43 Dose: 2 unit Levothyroxine Sodium (Synthroid Tab*) 112 mcg PO DAILY [facility] Last Admin: 07/28/16 08:34 Dose: 112 mcg Lisinopril (Prinivil Tab*) 10 mg PO DAILY [facility] Last Admin: 07/28/16 08:34 Dose: 10 mg Mometasone Furoate/Formoterol Fumar (Dulera 200/5 Mdi*) 2 puff INH BID [facility] Last Admin: 07/28/16 08:47 Dose: 2 puff Nicotine (Nicotine Inhaler*) 10 mg INH Q2H PRN PRN Reason: CRAVING Olanzapine (Zyprexa Tab*) 20 mg PO BEDTIME [facility] Last Admin: 07/27/16 22:43 Dose: 20 mg Ondansetron HCl (Zofran Inj*) 4 mg IV Q4H PRN PRN Reason: NAUSEA/VOMITING Paliperidone Palmitate (Invega Sustenna*) 156 mg IM Q30D [facility] Last Admin: 07/19/16 21:03 Dose: 156 mg Polyethylene Glycol/Electrolytes (Miralax*) 17 gm PO DAILY [facility] Last Admin: 07/28/16 08:59 Dose: Not Given Rivaroxaban (Xarelto(*)) 15 mg PO BID [facility] Last Admin: 07/28/16 08:33 Dose: 15 mg Sertraline HCl (Zoloft*) 200 mg PO DAILY [facility] Last Admin: 07/28/16 08:33 Dose: 200 mg Trazodone HCl (Desyrel Tab*) 50 mg PO BEDTIME PRN PRN Reason: SLEEP Last Admin: 07/25/16 23:47 Dose: 50 mg Vital Signs 07/27/16 07/27/16 07/27/16 15:53 18:43 20:00 Temperature 97.6 F 97.4 F Pulse Rate 68 95 Respiratory 16 20 16 Rate Blood Pressure 131/65 116/52 (mmHg) O2 Sat by Pulse 95 95 Oximetry 07/27/16 07/28/16 07/28/16 23:40 07:55 08:00 Temperature 97.9 F 97.4 F Pulse Rate 75 72 Respiratory 18 20 19 Rate Blood Pressure 122/47 116/50 (mmHg) O2 Sat by Pulse 93 94 Oximetry 07/28/16 08:48 Temperature Pulse Rate 80 Respiratory 19 Rate Blood Pressure (mmHg) O2 Sat by Pulse 96 Oximetry Oxygen Devices in Use Now: None Appearance: Obese, M, laying in bed in NAD Eyes: No Scleral Icterus Ears/Nose/Mouth/Throat: Mucous Membranes Moist Neck: NL Appearance and Movements; NL JVP Respiratory: Symmetrical Chest Expansion and Respiratory Effort, Clear to Auscultation Cardiovascular: NL Sounds; No Murmurs; No JVD, RRR Abdominal: NL Sounds; No Tenderness; No Distention Lymphatic: No Cervical Adenopathy Extremities: No Edema Result Diagrams: 07/22/16 05:30 07/22/16 05:30 Additional Lab and Data: Assess/Plan/Problems-Billing Assessment: 56 yo man with disorganized thoughts / altered mental status -- which is an unusual manifestation of his schizophrenia/bipolar disease. At the same time, no clear medical explanation for his presentation either. - Patient Problems (1) Altered mental status Current Visit: No Comment: Improved but still not able to function at home, medical work-up negative Started fluphenazine 5 mg bid 07/[address] Garibay feels patient is appropriate for Psych unit, awaiting bed availability (2) Pulmonary embolism Current Visit: No Comment: Rivaroxaban 15 mg bid, change to 20 mg daily . (3) Schizo affective schizophrenia Current Visit: No Comment: Appreciate psych input. Continue current regimen. (4) Morbid obesity Current Visit: No Comment: BMI 51.2. (5) Constipation Current Visit: Yes Comment: PEG reduced to 17 gm daily on 07/22. (6) DM type 2 (diabetes mellitus, type 2) Current Visit: No Comment: Linagliptin not available, doing OK on glipizide and HISS (7) Hypothyroidism Current Visit: No Status: Acute Comment: TSH wnl 07/19/16. (8) DVT prophylaxis Current Visit: No Comment: xarelto Status and Disposition: Awaiting psych bed availability
[2016-07-28] MEDS: OLANzapine TAB* 10 MG PO SCH (21:42)
[2016-07-29] MEDS: Mometasone/Formoter 200/5 MDI INH SCH (07:40)
[2016-07-29] MEDS: Insulin LISPRO* 1 UNITS UNIT SUBCUT SCH ×2 (08:39→13:32)
[2016-07-29] MEDS: Sertraline* 100 MG TAB PO SCH (08:39)
[2016-07-29] MEDS: Furosemide TAB* 20 MG PO SCH (08:39)
[2016-07-29] MEDS: Lisinopril TAB* 10 MG PO SCH (08:39)
[2016-07-29] MEDS: Levothyroxine TAB* 112 MCG TAB PO SCH (08:40)
[2016-07-29] MEDS: glipiZIDE TAB* 5 MG PO SCH (08:40)
[2016-07-29] MEDS: fluPHENAZine HCL TAB* 5 MG PO SCH (08:40)
[2016-07-29] MEDS: Rivaroxaban TAB(*) 15 MG PO SCH (08:40)
[2016-07-29] MEDS: Polyethylene Glycol 3350* 17 GM PACKET PO SCH (08:40)
[2016-07-29 09:43] VITALS: BP 107/56
--- NOTE | 2016-07-29 13:16 | PN ---
Subjective Date of Service: 07/29/16 Interval History: Patient seen this morning. Speech remains illogical. Agreeable to go down to psych unit when bed is available. Family History: Unchanged from Admission Social History: Unchanged from Admission Past Medical History: Unchanged from Admission Objective Active Medications: Acetaminophen (Tylenol Tab*) 650 mg PO Q4H PRN Albuterol (Ventolin Hfa Inhaler*) 2 puff INH Q4H PRN Dextrose (D50w Syringe 50 Ml*) 12.5 gm IV PUSH .FOR FS < 60 - SS PRN Fluphenazine HCl (Prolixin Tab*) 5 mg PO Q6H PRN Fluphenazine HCl (Prolixin Tab*) 5 mg PO BID [facility] Furosemide (Lasix Tab*) 20 mg PO DAILY [facility] Glipizide (Glucotrol Tab*) 5 mg PO BID [facility] Insulin Human Lispro (Humalog*) 0 units SUBCUT [facility] Levothyroxine Sodium (Synthroid Tab*) 112 mcg PO DAILY [facility] Lisinopril (Prinivil Tab*) 10 mg PO DAILY [facility] Mometasone Furoate/Formoterol Fumar (Dulera 200/5 Mdi*) 2 puff INH BID [facility] Nicotine (Nicotine Inhaler*) 10 mg INH Q2H PRN Olanzapine (Zyprexa Tab*) 20 mg PO BEDTIME [facility] Ondansetron HCl (Zofran Inj*) 4 mg IV Q4H PRN Paliperidone Palmitate (Invega Sustenna*) 156 mg IM Q30D [facility] Polyethylene Glycol/Electrolytes (Miralax*) 17 gm PO DAILY [facility] Rivaroxaban (Xarelto(*)) 15 mg PO BID [facility] Sertraline HCl (Zoloft*) 200 mg PO DAILY [facility] Trazodone HCl (Desyrel Tab*) 50 mg PO BEDTIME PRN Vital Signs 07/28/16 07/28/16 07/29/16 16:08 22:57 00:01 Temperature 99.2 F 99.2 F Pulse Rate 97 81 Respiratory 16 18 19 Rate Blood Pressure 115/42 113/55 (mmHg) O2 Sat by Pulse 90 91 Oximetry 07/29/16 07/29/16 07:56 08:00 Temperature 97.9 F Pulse Rate 88 Respiratory 16 19 Rate Blood Pressure 107/56 (mmHg) O2 Sat by Pulse 93 Oximetry Oxygen Devices in Use Now: None Appearance: Morbidly obese, M, laying in bed in NAD Eyes: No Scleral Icterus Ears/Nose/Mouth/Throat: Mucous Membranes Moist Abdominal: - - Obese, soft, NTND, BS+ Extremities: No Edema Result Diagrams: 07/22/16 05:30 07/22/16 05:30 Additional Lab and Data: Assess/Plan/Problems-Billing Assessment: 56 yo man with disorganized thoughts / altered mental status -- which is an unusual manifestation of his schizophrenia/bipolar disease. At the same time, no clear medical explanation for his presentation either. - Patient Problems (1) Altered mental status Current Visit: No Comment: Improved but still not able to function at home, medical work-up negative Started fluphenazine 5 mg bid 07/[address] Garibay feels patient is appropriate for Psych unit, awaiting bed availability (2) Pulmonary embolism Current Visit: No Comment: Rivaroxaban 15 mg bid, change to 20 mg daily 08/03. (3) Schizo affective schizophrenia Current Visit: No Comment: Appreciate psych input. Continue current regimen. (4) Morbid obesity Current Visit: No Comment: BMI 51.2. (5) Constipation Current Visit: Yes Comment: PEG reduced to 17 gm daily on 07/22. (6) DM type 2 (diabetes mellitus, type 2) Current Visit: No Comment: Linagliptin not available, doing OK on glipizide and HISS (7) Hypothyroidism Current Visit: No Status: Acute Comment: TSH wnl 07/19/16. (8) DVT prophylaxis Current Visit: No Comment: xarelto Status and Disposition: Awaiting psych bed availability
[2016-07-29] MEDS: Acetaminophen TAB* 325 MG PO PRN (13:32)
--- NOTE | 2016-07-30 02:16 | DS ---
CC: Dr. Loyola DISCHARGE SUMMARY: DATE OF ADMISSION: 07/19/16 DATE OF TRANSFER TO INPATIENT PSYCH UNIT: 07/29/16 PRIMARY CARE PHYSICIAN: Dr. Loyola. PRINCIPAL DISCHARGE DIAGNOSES: 1. Psychosis. 2. History of schizoaffective disorder. SECONDARY DIAGNOSES: 1. Depression. 2. Diabetes. 3. Hypothyroidism. 4. Supermorbid obesity. 5. Chronic obstructive pulmonary disease. 6. Asthma. 7. Anxiety. 8. Pulmonary embolus, on Xarelto. STUDIES DONE DURING HOSPITALIZATION: 1. Chest x-ray, impression: Minimal patchy atelectasis versus early consolidation in the right luis daniel g base. Recommend followup until resolution to exclude underlying pulmonary parenchymal pathology. 2. CT of the brain without contrast, impression: No evidence for gross acute infarct, mass effect or hemorrhage. 3. MRI of the brain, impression: No intracranial lesion is identified. HISTORY OF PRESENT ILLNESS AND HOSPITAL SUMMARY: Please see the full history and physical by Dr. Latasha Mariscal for full details. Briefly, Mr. Mccallum is a 56- year-old male with a past medical hi story as above who presented to the hospital stating that he was "going out of his mind." The patie nt was recently admitted to [facility] prior to this admission for pulmonary embolism and was initially discharged home. It seems that the patient was unable to take his medications reliab ly. The patient was evaluated by Psychiatry who wanted to ensure that there was no underlying medic al cause for the patient's change in mental status. He had an extensive workup including multiple b rain imaging and lab testing, all of which were negative. At that point, Psychiatry felt that it wa s likely due to the patient's underlying psychosis and schizoaffective disorder and that he would be better served on the psychiatric unit. He was awaiting a bed for a [facility] and one was available on 07/29/16. He was transferred down there for further therapy. Please note the patient was started on fluphenazine by Dr. Garibay while he was on the floor. Also, the patient is currently taking Xarelto for a pulmonary embolism. He is still on his initial 3 weeks of 15 mg b.i.d. dosing; however, on 08/03/16, he can change to 20 mg daily dosing. TIME SPENT: Total time spent on this discharge, 45 minutes. This is a summary of hospitalization. Please see the full medical record for further details. [id number]/CPS #: [id number]
== END 2016-07-29 16:10 | DRG 885 ==
LOC: ED 00:34 → MED 17:01 → OBSVTOIN 07-20 12:11
PROVIDERS: ADMIT Internal Medicine; ATTEND Hospitalist
DX: F29 Unspecified psychosis not due to a substance or known physiological condition (principal); I26.99 Other pulmonary embolism without acute cor pulmonale; J98.11 Atelectasis; E87.1 Hypo-osmolality and hyponatremia; Z68.43 Body mass index [BMI] 50.0-59.9, adult; F20.9 Schizophrenia, unspecified; F32.9 Major depressive disorder, single episode, unspecified; E03.9 Hypothyroidism, unspecified; E66.01 Morbid (severe) obesity due to excess calories; J44.9 Chronic obstructive pulmonary disease, unspecified; J45.909 Unspecified asthma, uncomplicated; E86.0 Dehydration; F17.210 Nicotine dependence, cigarettes, uncomplicated; E11.9 Type 2 diabetes mellitus without complications; Z79.84 Long term (current) use of oral hypoglycemic drugs; Z91.128 Patient's intentional underdosing of medication regimen for other reason; Z79.899 Other long term (current) drug therapy; Z88.8 Allergy status to other drugs, medicaments and biological substances; Z91.013 Allergy to seafood
CPT/HCPCS: 36415; 36600; 70030; 70450; 70551; 71020; 74000; 80048; 80053; 80307; 80320; 80329; 81003; 81015; 82140; 82550; 82607; 82803; 83036; 83605; 83921; 84443; 84484; 85025; 85652; 86140; 86592; 94640; 94760; 96374; 99284; 99406; A9270-GY; G0378; G0480; J2405; J2426

== ENCOUNTER 2016-07-29 16:10 | Inpatient (IN) | payer MEDICARE, MEDICAID ==
[2016-07-29] MEDS ORDERED: Al Hydrox/Mg Hydrox/Simet LIQ* 30 ML UDC PO PRN (16:42)
[2016-07-29] MEDS ORDERED: traZODone TAB* 50 MG TAB PO PRN (18:49)
[2016-07-29] MEDS ORDERED: Paliperidone SUSTENNA* 156 MG/1 ML IM SCH (19:00)
[2016-07-29] MEDS ORDERED: Nicotine Inhaler* 10 MG AMP INH PRN (19:13)
[2016-07-29] MEDS: Atorvastatin* 20 MG TAB PO SCH (20:27)
[2016-07-29] MEDS: fluPHENAZine HCL TAB* 5 MG PO SCH (20:27)
[2016-07-29] MEDS: OLANzapine TAB* 10 MG PO SCH (20:29)
[2016-07-29] MEDS: Rivaroxaban TAB(*) 15 MG PO SCH (20:29)
[2016-07-29] MEDS: Mometasone/Formoter 200/5 MDI INH SCH (20:46)
[2016-07-30] MEDS: Levothyroxine TAB* 112 MCG TAB PO SCH (06:11)
[2016-07-30] MEDS: Insulin LISPRO* 1 UNITS UNIT SUBCUT SCH ×3 (07:45→16:15)
[2016-07-30] MEDS: glipiZIDE TAB* 5 MG PO SCH ×2 (07:52→16:15)
[2016-07-30] MEDS: Furosemide TAB* 20 MG PO SCH (08:40)
[2016-07-30] MEDS: Vitamin THERAPEUTIC TAB PO SCH (08:40)
[2016-07-30] MEDS: Sertraline* 100 MG TAB PO SCH (08:40)
[2016-07-30] MEDS: fluPHENAZine HCL TAB* 5 MG PO SCH ×2 (08:41→20:38)
[2016-07-30] MEDS: Lisinopril TAB* 10 MG PO SCH (08:41)
[2016-07-30] MEDS: Rivaroxaban TAB(*) 15 MG PO SCH ×2 (08:42→20:38)
[2016-07-30] MEDS: Mometasone/Formoter 200/5 MDI INH SCH ×2 (11:53→20:37)
--- NOTE | 2016-07-30 15:18 | CONSULT ---
Subjective Date of Service: 07/30/16 Interval History: Patient well known to me from hospitalization prior to transfer to [facility]. Called to see patient for hypoxia. In speaking further with nurses the patient was found to be 84% while sleeping this morning. Since then O2s have been above 90% . Patient is still exhibiting some psychosis so it is difficult to tell if he is having any symptoms. He mentions some congestion but denies any SOB. Claims he has oxygen at home. Also mentioned a sleep study but cannot recall the results and does not seem familiar with CPAP. He has a history of COPD and has been on continuous oxygen in the past although was not requiring O2 at all this past hospitalization. Family History: Unchanged from Admission Social History: Unchanged from Admission Past Medical History: Unchanged from Admission Review of Systems - Measurements Intake and Output: Intake and Output Last 24 Hours 07/28/16 07/29/16 07/30/16 07/31/16 06:59 06:59 06:59 06:59 Weight 161.479 kg - Review of Systems Constitutional Symptoms: Negative: Fever, Night Sweats Dermatology: Positive: Normal HEENT: Positive: Normal Eyes: Positive: Normal Pulmonary: Positive: Wheezing, COPD, Home Oxygen Cardiology: Positive: Normal Gastroenterology: Positive: Normal Objective Active Medications: Acetaminophen (Tylenol Tab*) 650 mg PO Q4H PRN PRN Reason: PAIN or TEMP > 101 F Al Hydrox/Mg Hydrox/Simethicone (Maalox Plus*) 30 ml PO Q4H PRN PRN Reason: INDIGESTION Albuterol (Ventolin Hfa Inhaler*) 2 puff INH Q4H PRN PRN Reason: SHORTNESS OF BREATH Atorvastatin Calcium (Lipitor*) 20 mg PO BEDTIME [facility] Last Admin: 07/29/16 20:27 Dose: 20 mg Fluphenazine HCl (Prolixin Tab*) 5 mg PO BID [facility] Last Admin: 07/30/16 08:41 Dose: 5 mg Furosemide (Lasix Tab*) 20 mg PO DAILY [facility] Last Admin: 07/30/16 08:40 Dose: 20 mg Glipizide (Glucotrol Tab*) 5 mg PO BID [facility] Last Admin: 07/30/16 07:52 Dose: 5 mg Insulin Human Lispro (Humalog*) 1 units SUBCUT [facility] PRN Reason: Protocol Last Admin: 07/30/16 11:51 Dose: 2 unit Levothyroxine Sodium (Synthroid Tab*) 112 mcg PO 0600 [facility] Last Admin: 07/30/16 06:11 Dose: 112 mcg Lisinopril (Prinivil Tab*) 10 mg PO DAILY [facility] Last Admin: 07/30/16 08:41 Dose: 10 mg Mometasone Furoate/Formoterol Fumar (Dulera 200/5 Mdi*) 2 puff INH BID [facility] Last Admin: 07/30/16 11:53 Dose: 2 puff Multivitamins (Theragran Tab*) 1 tab PO DAILY [facility] Last Admin: 07/30/16 08:40 Dose: 1 tab Nicotine (Nicotine Inhaler*) 10 mg INH Q2H PRN PRN Reason: CRAVING Olanzapine (Zyprexa Tab*) 20 mg PO BEDTIME [facility] Last Admin: 07/29/16 20:29 Dose: 20 mg Paliperidone Palmitate (Invega Sustenna*) 156 mg IM Q30D [facility] Rivaroxaban (Xarelto(*)) 15 mg PO BID [facility] Last Admin: 07/30/16 08:42 Dose: 15 mg Sertraline HCl (Zoloft*) 200 mg PO DAILY [facility] Last Admin: 07/30/16 08:40 Dose: 200 mg Trazodone HCl (Desyrel Tab*) 50 mg PO BEDTIME PRN PRN Reason: SLEEP Vital Signs 07/29/16 07/29/16 07/29/16 16:15 16:44 17:31 Temperature 98.6 F 98.6 F Pulse Rate 118 Respiratory 16 18 Rate Blood Pressure 106/59 (mmHg) O2 Sat by Pulse 95 Oximetry 07/30/16 07/30/16 07/30/16 07:49 08:57 09:47 Temperature 98.6 F Pulse Rate 95 Respiratory 16 16 Rate Blood Pressure 98/45 131/61 (mmHg) O2 Sat by Pulse 84 Oximetry Oxygen Devices in Use Now: None Appearance: Super morbidly obese, middle-aged, M, laying in bed in NAD Eyes: No Scleral Icterus Ears/Nose/Mouth/Throat: Mucous Membranes Moist Neck: NL Appearance and Movements; NL JVP Respiratory: Symmetrical Chest Expansion and Respiratory Effort, - - Mild diffuse wheezing, good air movement Cardiovascular: NL Sounds; No Murmurs; No JVD, RRR Abdominal: NL Sounds; No Tenderness; No Distention Lymphatic: No Cervical Adenopathy Extremities: No Edema Skin: No Rash or Ulcers Neurological: - - Alert, oriented, no focal deficits Assessment/Plan - Billing Hypoxia in a 56 yo M with hx of schizoaffetive disorder, COPD previously on home O2, PE, DM, super morbid obesity, hypothyroidism Was hypoxic while sleeping this morning, since then O2 has been OK. Suspect patient has sleep apnea and while in the hospital can place him on 2L nocturnal oxygen. Continue Dulera and prn albuterol (has not used yet but should be encouraged if he is wheezing). Will also write for Spiriva. Once patient is discharged he would benefit from further GALO work-up by his PCP if it has not been done. As per previous notes there have been times he has been on continuous O2 at home. Continue anticoagulation with Xarelto as you are until 08/03 when he may switch to 20 mg PO daily dosing. Thank you for this consult. Please contact the hospitalist team if there are any further questions.
[2016-07-30] MEDS: Tiotropium CAP.INH* CAP.INH/18 MCG (USE ORDER SET !) INH SCH (16:41)
[2016-07-30] MEDS ORDERED: Spiriva Inhaler DEVICE* 1 EACH DEVICE INH ONE (17:00)
[2016-07-30] MEDS: Albuterol HFA INHALER* 8 gm MDI INH PRN ×2 (18:15→22:27)
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
[2016-07-30] MEDS: OLANzapine TAB* 10 MG PO SCH (20:37)
[2016-07-30] MEDS: Atorvastatin* 20 MG TAB PO SCH (20:38)
[2016-07-31] MEDS: Levothyroxine TAB* 112 MCG TAB PO SCH (06:09)
[2016-07-31] MEDS: Insulin LISPRO* 1 UNITS UNIT SUBCUT SCH ×3 (07:39→17:05)
[2016-07-31] MEDS: glipiZIDE TAB* 5 MG PO SCH ×2 (07:57→17:00)
[2016-07-31] MEDS: Furosemide TAB* 20 MG PO SCH (09:03)
[2016-07-31] MEDS: Sertraline* 100 MG TAB PO SCH (09:03)
[2016-07-31] MEDS: fluPHENAZine HCL TAB* 5 MG PO SCH ×2 (09:03→20:20)
[2016-07-31] MEDS: Vitamin THERAPEUTIC TAB PO SCH (09:03)
[2016-07-31] MEDS: Rivaroxaban TAB(*) 15 MG PO SCH ×2 (09:04→20:22)
[2016-07-31] MEDS: Lisinopril TAB* 10 MG PO SCH (09:04)
[2016-07-31] MEDS: Mometasone/Formoter 200/5 MDI INH SCH ×2 (09:05→20:21)
[2016-07-31] MEDS: Tiotropium CAP.INH* CAP.INH/18 MCG (USE ORDER SET !) INH SCH (09:05)
--- NOTE | 2016-07-31 13:28 | PN ---
Subjective - Subjective Service Type: 22409 Hosp care 15 min low complexity Subjective: The patient remains disorganized. "I've been here on the 2nd floor before. I know the zones that I have to sweet pickle maker my mail in. Those are the zones to put inside the computer. I'll say that from here on out." He had a few medical issues over the weekend, including oxygen saturation levels that sank to the low 80's as well as hypotension. Hospitalist service is following his care. Objective - Appearance Appearance: Obese Dysmorphic Features: No Hygiene: Dirty Grooming: Disheveled - Behavior Psychomotor Activities: Abnormal-Decreased Exhibits Abnormal Movement: No - Attitude and Relatedness Attitude and Relatedness: Psychotically Related Eye Contact: Poor - Speech Quality: Pressured Latencies: Normal Quantity: Copious - Mood Patient's Decription of Mood: "Good" - Affect Observed Affect: Fair Affect Consistent with: Euthymia - Thought Process Patient's Thought Process: Disorganized Thought Content: No Passive Wish, No Suicidal Planning, No Homicidal Ideation, No Paranoid Ideation - Sensorium Experiencing Hallucinations: No, Sensorium is Clear Type of Hallucinations: Visual: No, Auditory: No, Command: No - Level of Consciousness Level of Consciousness: Alert Orientation: Yes Intact, Yes Orientated to Time, Yes Orientated to Place, Yes Orientated to Person - Impulse Control Impulse Control: Poor - Insight and Judgement Insight and Judgement: Impaired - Group Participation Particating in Group Activities: No - Medication Management Medication Management Adherence: Yes Assessment - Assessment Merits Inpatient Hospitalization: For Stabilization, For Ongoing Evaluation, For Discharge Planning Inpatient DSM-IV Dx: Schizoaffective DO, Bipolar Type Clinical Impression: 56 y.o. single, white male with a history of schizoaffective DO, morbid obesity and multiple medical comorbidities including DM, active PE and COPD, transferred by the medical service due to gross thought disorganization. Plan - Plan Treatment Plan: Name: GEORGE HOBSON Birthdate: 1960 [id number] The patient is not improving despite being now on three neuroleptic medications : olanzapine, injectable paliperidone and twice daily fluphenazine. We will continue to monitor but also consider SNF placement, as he absolutely does not have the ability to live independently. Continued Medication Management: Continue Outpt Medication Medications: Current Medications Acetaminophen (Tylenol Tab*) 650 mg PO Q4H PRN PRN Reason: PAIN or TEMP > 101 F Al Hydrox/Mg Hydrox/Simethicone (Maalox Plus*) 30 ml PO Q4H PRN PRN Reason: INDIGESTION Albuterol (Ventolin Hfa Inhaler*) 2 puff INH Q4H PRN PRN Reason: SHORTNESS OF BREATH Last Admin: 07/30/16 22:27 Dose: 2 puff Atorvastatin Calcium (Lipitor*) 20 mg PO BEDTIME [facility] Last Admin: 07/30/16 20:38 Dose: 20 mg Fluphenazine HCl (Prolixin Tab*) 5 mg PO BID [facility] Last Admin: 07/31/16 09:03 Dose: 5 mg Furosemide (Lasix Tab*) 20 mg PO DAILY [facility] Last Admin: 07/31/16 09:03 Dose: 20 mg Glipizide (Glucotrol Tab*) 5 mg PO BID [facility] Last Admin: 07/31/16 07:57 Dose: 5 mg Insulin Human Lispro (Humalog*) 1 units SUBCUT [facility] PRN Reason: Protocol Last Admin: 07/31/16 11:54 Dose: 3 unit Levothyroxine Sodium (Synthroid Tab*) 112 mcg PO 0600 [facility] Last Admin: 07/31/16 06:09 Dose: 112 mcg Lisinopril (Prinivil Tab*) 10 mg PO DAILY [facility] Last Admin: 07/31/16 09:04 Dose: 10 mg Mometasone Furoate/Formoterol Fumar (Dulera 200/5 Mdi*) 2 puff INH BID [facility] Last Admin: 07/31/16 09:05 Dose: 2 puff Multivitamins (Theragran Tab*) 1 tab PO DAILY [facility] Last Admin: 07/31/16 09:03 Dose: 1 tab Nicotine (Nicotine Inhaler*) 10 mg INH Q2H PRN PRN Reason: CRAVING Olanzapine (Zyprexa Tab*) 20 mg PO BEDTIME [facility] Last Admin: 07/30/16 20:37 Dose: 20 mg Paliperidone Palmitate (Invega Sustenna*) 156 mg IM Q30D [facility] Rivaroxaban (Xarelto(*)) 15 mg PO BID [facility] Last Admin: 07/31/16 09:04 Dose: 15 mg Sertraline HCl (Zoloft*) 200 mg PO DAILY [facility] Last Admin: 07/31/16 09:03 Dose: 200 mg Tiotropium [place] (Spiriva Cap.Inh*) 1 cap INH DAILY [facility] Last Admin: 07/31/16 09:05 Dose: 1 inhaler Trazodone HCl (Desyrel Tab*) 50 mg PO BEDTIME PRN PRN Reason: SLEEP - Discharge Plan Discharge Plan: Inpatient Hospitalization
[2016-07-31] MEDS: Atorvastatin* 20 MG TAB PO SCH (20:20)
[2016-07-31] MEDS: OLANzapine TAB* 10 MG PO SCH (20:21)
[2016-08-01] MEDS: Levothyroxine TAB* 112 MCG TAB PO SCH (06:14)
[2016-08-01] MEDS: glipiZIDE TAB* 5 MG PO SCH ×2 (07:50→16:18)
[2016-08-01] MEDS: Insulin LISPRO* 1 UNITS UNIT SUBCUT SCH ×3 (07:59→16:18)
[2016-08-01] MEDS: Sertraline* 100 MG TAB PO SCH (09:02)
[2016-08-01] MEDS: Lisinopril TAB* 10 MG PO SCH (09:02)
[2016-08-01] MEDS: Vitamin THERAPEUTIC TAB PO SCH (09:03)
[2016-08-01] MEDS: Tiotropium CAP.INH* CAP.INH/18 MCG (USE ORDER SET !) INH SCH (09:03)
[2016-08-01] MEDS: Furosemide TAB* 20 MG PO SCH (09:03)
[2016-08-01] MEDS: fluPHENAZine HCL TAB* 5 MG PO SCH ×2 (09:03→20:29)
[2016-08-01] MEDS: Mometasone/Formoter 200/5 MDI INH SCH ×2 (09:03→20:30)
[2016-08-01] MEDS: Rivaroxaban TAB(*) 15 MG PO SCH ×2 (09:03→20:29)
--- NOTE | 2016-08-01 14:19 | PN ---
Subjective - Subjective Service Type: 79119 Hosp care 15 min low complexity Subjective: Andrea was in good spirits. He vaguely recognized me, and new the date and year. He couldn't say why he was hospitalized, but mentioned that medical and psychiatric care is being given. He denied perceptual disturbances or distress, and made no delusional comments. He said his need it to reconnect with his "people" - clarifying they are clinic staff who help coordinate affairs for him. Objective - Appearance Appearance: Obese Hygiene: Mal-odorous Grooming: Disheveled - Behavior Psychomotor Activities: Abnormal-Decreased - Attitude and Relatedness Attitude and Relatedness: Cooperative Eye Contact: Good - Speech Quality: Unpressured Latencies: Normal Quantity: Terse - Mood Patient's Decription of Mood: "Good" - Affect Observed Affect: Non-labile Affect Consistent with: Euthymia - Thought Process Patient's Thought Process: Impoverished Thought Content: No Passive Wish, No Suicidal Planning, No Homicidal Ideation, No Paranoid Ideation - Sensorium Experiencing Hallucinations: No, Sensorium is Clear - Level of Consciousness Level of Consciousness: Alert - Impulse Control Impulse Control: Intact - Insight and Judgement Insight and Judgement: Poor Assessment - Assessment Merits Inpatient Hospitalization: For Stabilization, To Initiate Treatment, For Ongoing Evaluation, Pending Safe DC Plan Inpatient DSM-IV Dx: Schizoaffective DO, Bipolar Type Clinical Impression: 56 y.o. male with a history of Schizoaffective DO, morbid obesity, multiple medical comorbidities (including DM, active PE and COPD), and multiple prior psychiatric hospitalization. He was transferred to psychiatry from the medical service due to his presentation with persistent thought disorganization. Stable behaviorally here. At low distress levels. Has poor insight and recall, and thought disorder. Case discussed with Makayla Schwartz ([facility]) 08/01 - clinic view is that delirium and medical morbidity has been more prominent in recent months than psychotic disorder. Hospitalist recruiting consultant deemed Andrea stable medically 07/31. He is on a complex regimen with Zoloft, Trazodone, Prolixin, Invega (depot) and Zyprexa; with concurrent standing antipsychotics justified I presume due to serial failed monotherapy (or dual therapy) trials, and/or intention to more narrowly tailor the regimen when feasible. Plan - Plan Treatment Plan: Name: ANDREA HOBSON Birthdate: 1960 [id number] Medications: Current Medications Acetaminophen (Tylenol Tab*) 650 mg PO Q4H PRN PRN Reason: PAIN or TEMP > 101 F Al Hydrox/Mg Hydrox/Simethicone (Maalox Plus*) 30 ml PO Q4H PRN PRN Reason: INDIGESTION Albuterol (Ventolin Hfa Inhaler*) 2 puff INH Q4H PRN PRN Reason: SHORTNESS OF BREATH Last Admin: 07/30/16 22:27 Dose: 2 puff Atorvastatin Calcium (Lipitor*) 20 mg PO BEDTIME [facility] Last Admin: 07/31/16 20:20 Dose: 20 mg Fluphenazine HCl (Prolixin Tab*) 5 mg PO BID [facility] Last Admin: 08/01/16 09:03 Dose: 5 mg Furosemide (Lasix Tab*) 20 mg PO DAILY [facility] Last Admin: 08/01/16 09:03 Dose: 20 mg Glipizide (Glucotrol Tab*) 5 mg PO BID [facility] Last Admin: 08/01/16 07:50 Dose: 5 mg Insulin Human Lispro (Humalog*) 1 units SUBCUT [facility] PRN Reason: Protocol Last Admin: 08/01/16 11:35 Dose: 9 unit Levothyroxine Sodium (Synthroid Tab*) 112 mcg PO 0600 [facility] Last Admin: 08/01/16 06:14 Dose: 112 mcg Lisinopril (Prinivil Tab*) 10 mg PO DAILY [facility] Last Admin: 08/01/16 09:02 Dose: 10 mg Mometasone Furoate/Formoterol Fumar (Dulera 200/5 Mdi*) 2 puff INH BID [facility] Last Admin: 08/01/16 09:03 Dose: 2 puff Multivitamins (Theragran Tab*) 1 tab PO DAILY [facility] Last Admin: 08/01/16 09:03 Dose: 1 tab Nicotine (Nicotine Inhaler*) 10 mg INH Q2H PRN PRN Reason: CRAVING Olanzapine (Zyprexa Tab*) 20 mg PO BEDTIME [facility] Last Admin: 07/31/16 20:21 Dose: 20 mg Paliperidone Palmitate (Invega Sustenna*) 156 mg IM Q30D [facility] Rivaroxaban (Xarelto(*)) 15 mg PO BID [facility] Last Admin: 08/01/16 09:03 Dose: 15 mg Sertraline HCl (Zoloft*) 200 mg PO DAILY [facility] Last Admin: 08/01/16 09:02 Dose: 200 mg Tiotropium [place] (Spiriva Cap.Inh*) 1 cap INH DAILY [facility] Last Admin: 08/01/16 09:03 Dose: 1 inhaler Trazodone HCl (Desyrel Tab*) 50 mg PO BEDTIME PRN PRN Reason: SLEEP - Discharge Plan Discharge Plan: Outpatient Follow Up
[2016-08-01] MEDS: Albuterol HFA INHALER* 8 gm MDI INH PRN (18:55)
[2016-08-01] MEDS: Atorvastatin* 20 MG TAB PO SCH (20:29)
[2016-08-01] MEDS: OLANzapine TAB* 10 MG PO SCH (20:29)
[2016-08-02] MEDS: Levothyroxine TAB* 112 MCG TAB PO SCH (06:38)
[2016-08-02] MEDS: Insulin LISPRO* 1 UNITS UNIT SUBCUT SCH ×3 (07:39→16:35)
[2016-08-02] MEDS: Mometasone/Formoter 200/5 MDI INH SCH ×2 (08:05→20:30)
[2016-08-02] MEDS: Tiotropium CAP.INH* CAP.INH/18 MCG (USE ORDER SET !) INH SCH (08:05)
[2016-08-02] MEDS: Sertraline* 100 MG TAB PO SCH (08:06)
[2016-08-02] MEDS: fluPHENAZine HCL TAB* 5 MG PO SCH ×2 (08:06→20:28)
[2016-08-02] MEDS: Furosemide TAB* 20 MG PO SCH (08:07)
[2016-08-02] MEDS: glipiZIDE TAB* 5 MG PO SCH ×2 (08:07→16:35)
[2016-08-02] MEDS: Lisinopril TAB* 10 MG PO SCH (08:07)
[2016-08-02] MEDS: Vitamin THERAPEUTIC TAB PO SCH (08:07)
[2016-08-02] MEDS: Rivaroxaban TAB(*) 15 MG PO SCH ×2 (08:08→20:28)
--- NOTE | 2016-08-02 10:44 | PN ---
Subjective - Subjective Service Type: 70869 Hosp care 15 min low complexity Subjective: The patient has been calm and cooperative on our unit and has started attending groups. He remains easily confused and his speech is mostly irrelevant. For example, "I'm interested in my apartment. I got a lot of bills I'd like to lower" is what he spontaneously offers as the response to the question as to why he's in the hospital. No behavioral problems are noted by staff. Objective - Appearance Appearance: Obese Dysmorphic Features: No Hygiene: Normal Grooming: Disheveled - Behavior Psychomotor Activities: Normal Exhibits Abnormal Movement: No - Attitude and Relatedness Attitude and Relatedness: Cooperative Eye Contact: Fair - Speech Quality: Unpressured Latencies: Normal Quantity: Terse - Mood Patient's Decription of Mood: "Okay" - Affect Observed Affect: Fair Affect Consistent with: Euthymia - Thought Process Patient's Thought Process: Disorganized Thought Content: No Passive Wish, No Suicidal Planning, No Homicidal Ideation, No Paranoid Ideation - Sensorium Experiencing Hallucinations: No, Sensorium is Clear Type of Hallucinations: Visual: No, Auditory: No, Command: No - Level of Consciousness Level of Consciousness: Alert Orientation: Yes Intact, Yes Orientated to Time, Yes Orientated to Place, Yes Orientated to Person - Impulse Control Impulse Control: Poor - Insight and Judgement Insight and Judgement: Impaired - Group Participation Particating in Group Activities: Yes - Medication Management Medication Management Adherence: Yes Assessment - Assessment Merits Inpatient Hospitalization: For Immediate Safety, For Stabilization Inpatient DSM-IV Dx: Schizoaffective DO, Bipolar Type Clinical Impression: 56 y.o. single, white male with a history of schizoaffective DO, morbid obesity and multiple medical comorbidities including DM, active PE and COPD, transferred by the medical service due to gross thought disorganization. Plan - Plan Treatment Plan: Name: GEORGE HOBSON Birthdate: 1960 [id number] The patient remains delirious despite three neuroleptic medications: olanzapine , injectable paliperidone and twice daily fluphenazine. He is pending transfer to a nursing facility due to inability to take care of himself independently. PT/OT consults ordered this AM. Continued Medication Management: Continue Outpt Medication Medications: Current Medications Acetaminophen (Tylenol Tab*) 650 mg PO Q4H PRN PRN Reason: PAIN or TEMP > 101 F Al Hydrox/Mg Hydrox/Simethicone (Maalox Plus*) 30 ml PO Q4H PRN PRN Reason: INDIGESTION Albuterol (Ventolin Hfa Inhaler*) 2 puff INH Q4H PRN PRN Reason: SHORTNESS OF BREATH Last Admin: 08/01/16 18:55 Dose: 2 puff Atorvastatin Calcium (Lipitor*) 20 mg PO BEDTIME [facility] Last Admin: 08/01/16 20:29 Dose: 20 mg Fluphenazine HCl (Prolixin Tab*) 5 mg PO BID [facility] Last Admin: 08/02/16 08:06 Dose: 5 mg Furosemide (Lasix Tab*) 20 mg PO DAILY [facility] Last Admin: 08/02/16 08:07 Dose: 20 mg Glipizide (Glucotrol Tab*) 5 mg PO BID [facility] Last Admin: 08/02/16 08:07 Dose: 5 mg Insulin Human Lispro (Humalog*) 1 units SUBCUT [facility] PRN Reason: Protocol Last Admin: 08/02/16 07:39 Dose: 3 unit Levothyroxine Sodium (Synthroid Tab*) 112 mcg PO 0600 [facility] Last Admin: 08/02/16 06:38 Dose: 112 mcg Lisinopril (Prinivil Tab*) 10 mg PO DAILY [facility] Last Admin: 08/02/16 08:07 Dose: 10 mg Mometasone Furoate/Formoterol Fumar (Dulera 200/5 Mdi*) 2 puff INH BID [facility] Last Admin: 08/02/16 08:05 Dose: 2 puff Multivitamins (Theragran Tab*) 1 tab PO DAILY [facility] Last Admin: 08/02/16 08:07 Dose: 1 tab Nicotine (Nicotine Inhaler*) 10 mg INH Q2H PRN PRN Reason: CRAVING Olanzapine (Zyprexa Tab*) 20 mg PO BEDTIME [facility] Last Admin: 08/01/16 20:29 Dose: 20 mg Paliperidone Palmitate (Invega Sustenna*) 156 mg IM Q30D [facility] Rivaroxaban (Xarelto(*)) 15 mg PO BID [facility] Last Admin: 08/02/16 08:08 Dose: 15 mg Sertraline HCl (Zoloft*) 200 mg PO DAILY [facility] Last Admin: 08/02/16 08:06 Dose: 200 mg Tiotropium [place] (Spiriva Cap.Inh*) 1 cap INH DAILY [facility] Last Admin: 08/02/16 08:05 Dose: 1 inhaler Trazodone HCl (Desyrel Tab*) 50 mg PO BEDTIME PRN PRN Reason: SLEEP Last Admin: 08/01/16 22:25 Dose: 50 mg - Discharge Plan Discharge Plan: Inpatient Hospitalization
--- NOTE | 2016-08-02 13:11 | PN ---
[facility]: Group Therapy Note - Service Type Service Type: 05392 Group Psychotherapy - Cognitive Behavioral Group Therapy ( CBT):Patient was attentive and participatory in CBT programming this morning, and remained in good behavioral control. Patient expressed positive insights regarding relevant treatment interventions and goals.
[2016-08-02] MEDS: Atorvastatin* 20 MG TAB PO SCH (20:27)
[2016-08-02] MEDS: OLANzapine TAB* 10 MG PO SCH (20:28)
[2016-08-03] MEDS: Levothyroxine TAB* 112 MCG TAB PO SCH (06:07)
[2016-08-03] MEDS: Insulin LISPRO* 1 UNITS UNIT SUBCUT SCH ×3 (08:17→16:52)
[2016-08-03] MEDS: Tiotropium CAP.INH* CAP.INH/18 MCG (USE ORDER SET !) INH SCH (09:49)
[2016-08-03] MEDS: Vitamin THERAPEUTIC TAB PO SCH (09:49)
[2016-08-03] MEDS: fluPHENAZine HCL TAB* 5 MG PO SCH ×2 (09:49→21:02)
[2016-08-03] MEDS: Sertraline* 100 MG TAB PO SCH (09:49)
[2016-08-03] MEDS: Rivaroxaban TAB(*) 15 MG PO SCH ×2 (09:50→21:02)
[2016-08-03] MEDS: glipiZIDE TAB* 5 MG PO SCH ×2 (09:51→16:53)
[2016-08-03] MEDS: Mometasone/Formoter 200/5 MDI INH SCH ×2 (09:56→21:01)
[2016-08-03] MEDS: Furosemide TAB* 20 MG PO SCH (10:10)
[2016-08-03] MEDS: Lisinopril TAB* 10 MG PO SCH (10:10)
--- NOTE | 2016-08-03 12:47 | PN ---
Subjective - Subjective Service Type: 60293 Hosp care 15 min low complexity Subjective: Patient's thought process remains confused and non-sensical. He is agreeable with assisted placement and PT/OT consults are being provided. Objective - Appearance Appearance: Obese Dysmorphic Features: No Hygiene: Mal-odorous Grooming: Disheveled - Behavior Psychomotor Activities: Normal Exhibits Abnormal Movement: No - Attitude and Relatedness Attitude and Relatedness: Cooperative Eye Contact: Fair - Speech Quality: Unpressured Latencies: Normal Quantity: Appropriate - Mood Patient's Decription of Mood: "Great" - Affect Observed Affect: Good Affect Consistent with: Euthymia - Thought Process Patient's Thought Process: Disorganized Thought Content: No Passive Wish, No Suicidal Planning, No Homicidal Ideation, No Paranoid Ideation - Sensorium Experiencing Hallucinations: No, Sensorium is Clear Type of Hallucinations: Visual: No, Auditory: No, Command: No - Level of Consciousness Level of Consciousness: Alert Orientation: Yes Intact, Yes Orientated to Time, Yes Orientated to Place, Yes Orientated to Person - Impulse Control Impulse Control: Tenuous - Insight and Judgement Insight and Judgement: Poor - Group Participation Particating in Group Activities: Yes - Medication Management Medication Management Adherence: Yes Assessment - Assessment Merits Inpatient Hospitalization: For Immediate Safety, For Stabilization Inpatient DSM-IV Dx: Schizoaffective DO, Bipolar Type Clinical Impression: 56 y.o. single, white male with a history of schizoaffective DO, morbid obesity and multiple medical comorbidities including DM, active PE and COPD, transferred by the medical service due to gross thought disorganization. Plan - Plan Treatment Plan: Name: GEORGE HOBSON Birthdate: 1960 [id number] The patient remains delirious despite three neuroleptic medications: olanzapine , injectable paliperidone and twice daily fluphenazine. He is pending transfer to a nursing facility due to inability to take care of himself independently. PT/OT consults are appreciated. Continued Medication Management: Continue Outpt Medication Medications: Current Medications Acetaminophen (Tylenol Tab*) 650 mg PO Q4H PRN PRN Reason: PAIN or TEMP > 101 F Al Hydrox/Mg Hydrox/Simethicone (Maalox Plus*) 30 ml PO Q4H PRN PRN Reason: INDIGESTION Albuterol (Ventolin Hfa Inhaler*) 2 puff INH Q4H PRN PRN Reason: SHORTNESS OF BREATH Last Admin: 08/01/16 18:55 Dose: 2 puff Atorvastatin Calcium (Lipitor*) 20 mg PO BEDTIME [facility] Last Admin: 08/02/16 20:27 Dose: 20 mg Fluphenazine HCl (Prolixin Tab*) 5 mg PO BID [facility] Last Admin: 08/03/16 09:49 Dose: 5 mg Furosemide (Lasix Tab*) 20 mg PO DAILY [facility] Last Admin: 08/03/16 10:10 Dose: 20 mg Glipizide (Glucotrol Tab*) 5 mg PO BID [facility] Last Admin: 08/03/16 09:51 Dose: 5 mg Insulin Human Lispro (Humalog*) 1 units SUBCUT [facility] PRN Reason: Protocol Last Admin: 08/03/16 12:06 Dose: 3 unit Levothyroxine Sodium (Synthroid Tab*) 112 mcg PO 0600 [facility] Last Admin: 08/03/16 06:07 Dose: 112 mcg Lisinopril (Prinivil Tab*) 10 mg PO DAILY [facility] Last Admin: 08/03/16 10:10 Dose: 10 mg Mometasone Furoate/Formoterol Fumar (Dulera 200/5 Mdi*) 2 puff INH BID [facility] Last Admin: 08/03/16 09:56 Dose: 2 puff Multivitamins (Theragran Tab*) 1 tab PO DAILY [facility] Last Admin: 08/03/16 09:49 Dose: 1 tab Nicotine (Nicotine Inhaler*) 10 mg INH Q2H PRN PRN Reason: CRAVING Olanzapine (Zyprexa Tab*) 20 mg PO BEDTIME [facility] Last Admin: 08/02/16 20:28 Dose: 20 mg Paliperidone Palmitate (Invega Sustenna*) 156 mg IM Q30D [facility] Rivaroxaban (Xarelto(*)) 15 mg PO BID [facility] Last Admin: 08/03/16 09:50 Dose: 15 mg Sertraline HCl (Zoloft*) 200 mg PO DAILY [facility] Last Admin: 08/03/16 09:49 Dose: 200 mg Tiotropium [place] (Spiriva Cap.Inh*) 1 cap INH DAILY [facility] Last Admin: 08/03/16 09:49 Dose: 1 inhaler Trazodone HCl (Desyrel Tab*) 50 mg PO BEDTIME PRN PRN Reason: SLEEP Last Admin: 08/01/16 22:25 Dose: 50 mg - Discharge Plan Discharge Plan: Inpatient Hospitalization
--- NOTE | 2016-08-03 15:39 | PN ---
Subjective Date of Service: 08/03/16 Interval History: Pt examined at the bedside today. Asked to eval hypotension. Pt states that he is feeling well he denies chest pain and denies sob. Denies dizziness with position change. Denies syncope or pre-syncope. Denies chest pain or sob. ROS-denies fever, denies chills, denies chest pain, denies sob, denies nausea, denies vomiting, denies lightheadedness, denies syncope, denies abdominal pain, review of 11 systems completed all others negative, Family History: Unchanged from Admission Social History: Unchanged from Admission Past Medical History: Unchanged from Admission Objective Active Medications: Acetaminophen (Tylenol Tab*) 650 mg PO Q4H PRN PRN Reason: PAIN or TEMP > 101 F Al Hydrox/Mg Hydrox/Simethicone (Maalox Plus*) 30 ml PO Q4H PRN PRN Reason: INDIGESTION Albuterol (Ventolin Hfa Inhaler*) 2 puff INH Q4H PRN PRN Reason: SHORTNESS OF BREATH Last Admin: 08/01/16 18:55 Dose: 2 puff Atorvastatin Calcium (Lipitor*) 20 mg PO BEDTIME [facility] Last Admin: 08/02/16 20:27 Dose: 20 mg Fluphenazine HCl (Prolixin Tab*) 5 mg PO BID [facility] Last Admin: 08/03/16 09:49 Dose: 5 mg Glipizide (Glucotrol Tab*) 5 mg PO BID [facility] Last Admin: 08/03/16 09:51 Dose: 5 mg Insulin Human Lispro (Humalog*) 1 units SUBCUT [facility] PRN Reason: Protocol Last Admin: 08/03/16 12:06 Dose: 3 unit Levothyroxine Sodium (Synthroid Tab*) 112 mcg PO 0600 [facility] Last Admin: 08/03/16 06:07 Dose: 112 mcg Lisinopril (Prinivil Tab*) 10 mg PO DAILY [facility] Last Admin: 08/03/16 10:10 Dose: 10 mg Mometasone Furoate/Formoterol Fumar (Dulera 200/5 Mdi*) 2 puff INH BID [facility] Last Admin: 08/03/16 09:56 Dose: 2 puff Multivitamins (Theragran Tab*) 1 tab PO DAILY [facility] Last Admin: 02/16/17 09:49 Dose: 1 tab Nicotine (Nicotine Inhaler*) 10 mg INH Q2H PRN PRN Reason: CRAVING Olanzapine (Zyprexa Tab*) 20 mg PO BEDTIME [facility] Last Admin: 08/02/16 20:28 Dose: 20 mg Paliperidone Palmitate (Invega Sustenna*) 156 mg IM Q30D [facility] Rivaroxaban (Xarelto(*)) 15 mg PO BID [facility] Stop: 08/03/16 22:00 Last Admin: 08/03/16 09:50 Dose: 15 mg Rivaroxaban (Xarelto(*)) 20 mg PO DAILY [facility] Sertraline HCl (Zoloft*) 200 mg PO DAILY [facility] Last Admin: 08/03/16 09:49 Dose: 200 mg Tiotropium [place] (Spiriva Cap.Inh*) 1 cap INH DAILY [facility] Last Admin: 08/03/16 09:49 Dose: 1 inhaler Trazodone HCl (Desyrel Tab*) 50 mg PO BEDTIME PRN PRN Reason: SLEEP Last Admin: 08/01/16 22:25 Dose: 50 mg Vital Signs 08/03/16 08/03/16 08/03/16 00:00 07:48 08:46 Temperature 97.7 F Pulse Rate 64 Respiratory 16 16 Rate Blood Pressure 104/43 (mmHg) O2 Sat by Pulse 92 98 Oximetry 08/03/16 08/03/16 08/03/16 09:45 14:30 14:32 Temperature 98.1 F Pulse Rate 74 132 Respiratory 18 Rate Blood Pressure 122/64 66/22 71/48 (mmHg) O2 Sat by Pulse 91 Oximetry 08/03/16 14:35 Temperature Pulse Rate Respiratory Rate Blood Pressure 95/52 (mmHg) O2 Sat by Pulse Oximetry Oxygen Devices in Use Now: None Appearance: 56 y/o male patient sitting in bed, NAD, Eyes: No Scleral Icterus Ears/Nose/Mouth/Throat: NL Teeth, Lips, Gums Neck: NL Appearance and Movements; NL JVP Respiratory: Symmetrical Chest Expansion and Respiratory Effort, - - wheeze to upper lobes noted, Cardiovascular: NL Sounds; No Murmurs; No JVD Abdominal: NL Sounds; No Tenderness; No Distention Lymphatic: No Cervical Adenopathy Extremities: No Edema Skin: No Rash or Ulcers Neurological: Alert and Oriented x 3 Lines/Tubes/Other Access: Clean, Dry and Intact Peripheral IV Assess/Plan/Problems-Billing Ask to eval for hypotension, pt to [facility] for management of psychosis - Patient Problems (1) HTN (hypertension) Current Visit: Yes Status: Chronic Comment: Hold lasix for now continue lisinopril follow (2) Orthostatic hypotension Current Visit: Yes Status: Acute Priority: High Comment: Repeated BP laying 120/40 sitting 113/60 standing 103/60 HR 84, 86 100 respectively, dizziness reported with staning, will force po fluids and hold lasix for now, will restart lasix when able, repeat orthostats tomorrow, (3) FEN Current Visit: Yes Status: Acute Priority: High Comment: Consistent carb diet (4) DVT prophylaxis Current Visit: Yes Status: Acute Priority: High Comment: xarelto (5) COPD (chronic obstructive pulmonary disease) Current Visit: Yes Status: Chronic Priority: High Comment: No signs of exacerbation. Continue inhaler/neb regimen. 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
[2016-08-03] MEDS: OLANzapine TAB* 10 MG PO SCH (21:01)
[2016-08-03] MEDS: Atorvastatin* 20 MG TAB PO SCH (21:02)
[2016-08-04] MEDS: Tiotropium CAP.INH* CAP.INH/18 MCG (USE ORDER SET !) INH SCH (09:16)
[2016-08-04] MEDS: Insulin LISPRO* 1 UNITS UNIT SUBCUT SCH ×3 (09:17→16:41)
[2016-08-04] MEDS: Sertraline* 100 MG TAB PO SCH (09:18)
[2016-08-04] MEDS: Vitamin THERAPEUTIC TAB PO SCH (09:18)
[2016-08-04] MEDS: fluPHENAZine HCL TAB* 5 MG PO SCH ×2 (09:18→20:45)
[2016-08-04] MEDS: glipiZIDE TAB* 5 MG PO SCH ×2 (09:18→16:44)
[2016-08-04] MEDS: Lisinopril TAB* 10 MG PO SCH (09:18)
[2016-08-04] MEDS: Mometasone/Formoter 200/5 MDI INH SCH ×2 (09:19→21:24)
[2016-08-04] MEDS: Rivaroxaban TAB(*) 20 MG TAB PO SCH (09:19)
[2016-08-04] MEDS: Levothyroxine TAB* 112 MCG TAB PO SCH (09:19)
--- NOTE | 2016-08-04 14:28 | PN ---
Subjective - Subjective Service Type: 45042 Hosp care 15 min low complexity Subjective: The patient is slightly better organized today and I note that he is less likely to blurt out irrelevant statements than previously. The hospitalist service is holding his lasix as he has been fairly hypotensive recently. He is encouraged to drink more fluids. The patient has been declined for SNF placement because his PT/OT evaluations did not identify any physical needs for this. He is complaining of diarrhea. Objective - Appearance Appearance: Obese Dysmorphic Features: No Hygiene: Normal Grooming: Disheveled - Behavior Psychomotor Activities: Normal Exhibits Abnormal Movement: No - Attitude and Relatedness Attitude and Relatedness: Cooperative Eye Contact: Fair - Speech Quality: Unpressured Latencies: Normal Quantity: Terse - Mood Patient's Decription of Mood: "Okay" - Affect Observed Affect: Fair Affect Consistent with: Euthymia - Thought Process Patient's Thought Process: Disorganized Thought Content: No Passive Wish, No Suicidal Planning, No Homicidal Ideation, No Paranoid Ideation - Sensorium Experiencing Hallucinations: No, Sensorium is Clear Type of Hallucinations: Visual: No, Auditory: No, Command: No - Level of Consciousness Level of Consciousness: Alert Orientation: Yes Intact, Yes Orientated to Time, Yes Orientated to Place, Yes Orientated to Person - Impulse Control Impulse Control: Tenuous - Insight and Judgement Insight and Judgement: Fair - Group Participation Particating in Group Activities: Yes - Medication Management Medication Management Adherence: Yes Assessment - Assessment Merits Inpatient Hospitalization: Consolidate Improvements, Pending Safe DC Plan Inpatient DSM-IV Dx: Schizoaffective DO, Bipolar Type Clinical Impression: 56 y.o. single, white male with a history of schizoaffective DO, morbid obesity and multiple medical comorbidities including DM, active PE and COPD, transferred by the medical service due to gross thought disorganization. Plan - Plan Treatment Plan: Name: GEORGE HOBSON Birthdate: 1960 [id number] The patient's delirium appears to be improving on three neuroleptic medications : olanzapine, injectable paliperidone and twice daily fluphenazine. We are trying to increase his at-home nursing supports in advance of, hopefully, discharging him back to his apartment on Sunday or Sunday of next week. Continued Medication Management: Different Medication Medications: Current Medications Acetaminophen (Tylenol Tab*) 650 mg PO Q4H PRN PRN Reason: PAIN or TEMP > 101 F Al Hydrox/Mg Hydrox/Simethicone (Maalox Plus*) 30 ml PO Q4H PRN PRN Reason: INDIGESTION Albuterol (Ventolin Hfa Inhaler*) 2 puff INH Q4H PRN PRN Reason: SHORTNESS OF BREATH Last Admin: 08/01/16 18:55 Dose: 2 puff Atorvastatin Calcium (Lipitor*) 20 mg PO BEDTIME [facility] Last Admin: 08/03/16 21:02 Dose: 20 mg Fluphenazine HCl (Prolixin Tab*) 5 mg PO BID [facility] Last Admin: 08/04/16 09:18 Dose: 5 mg Glipizide (Glucotrol Tab*) 5 mg PO BID [facility] Last Admin: 08/04/16 09:18 Dose: 5 mg Insulin Human Lispro (Humalog*) 1 units SUBCUT [facility] PRN Reason: Protocol Last Admin: 08/04/16 12:04 Dose: 3 unit Levothyroxine Sodium (Synthroid Tab*) 112 mcg PO 0600 [facility] Last Admin: 08/04/16 09:19 Dose: 112 mcg Lisinopril (Prinivil Tab*) 10 mg PO DAILY [facility] Last Admin: 08/04/16 09:18 Dose: 10 mg Mometasone Furoate/Formoterol Fumar (Dulera 200/5 Mdi*) 2 puff INH BID [facility] Last Admin: 08/04/16 09:19 Dose: 2 puff Multivitamins (Theragran Tab*) 1 tab PO DAILY [facility] Last Admin: 08/04/16 09:18 Dose: 1 tab Nicotine (Nicotine Inhaler*) 10 mg INH Q2H PRN PRN Reason: CRAVING Olanzapine (Zyprexa Tab*) 20 mg PO BEDTIME [facility] Last Admin: 08/03/16 21:01 Dose: 20 mg Paliperidone Palmitate (Invega Sustenna*) 156 mg IM Q30D [facility] Rivaroxaban (Xarelto (*)) 20 mg PO DAILY [facility] Last Admin: 08/04/16 09:19 Dose: 20 mg Sertraline HCl (Zoloft*) 200 mg PO DAILY [facility] Last Admin: 08/04/16 09:18 Dose: 200 mg Tiotropium [place] (Spiriva Cap.Inh*) 1 cap INH DAILY [facility] Last Admin: 08/04/16 09:16 Dose: 1 inhaler Trazodone HCl (Desyrel Tab*) 50 mg PO BEDTIME PRN PRN Reason: SLEEP Last Admin: 08/01/16 22:25 Dose: 50 mg - Discharge Plan Discharge Plan: Outpatient Follow Up Outpatient Program: [facility]
[2016-08-04] MEDS ORDERED: Loperamide CAP* 2 MG PO PRN (14:29)
--- NOTE | 2016-08-04 17:24 | PN ---
Subjective Date of Service: 08/04/16 Interval History: Patient seen and examined at bedside for follow-up evaluation of orthostatic hypotension. Mr. Mccallum states that he is feeling better today. He was observed getting out of the chair in the common area and walking down the esteban with contact guard only. He denies having dizziness or lightheadedness. He denies CP, SOB but does report a cough. He is wearing nocturnal O2, and it has been helping. He denies palpitations, syncope, or near syncope. Denies abd pain , n/v and reports good appetite. Family History: Unchanged from Admission Social History: Unchanged from Admission Past Medical History: Unchanged from Admission Objective Active Medications: Acetaminophen (Tylenol Tab*) 650 mg PO Q4H PRN PRN Reason: PAIN or TEMP > 101 F Al Hydrox/Mg Hydrox/Simethicone (Maalox Plus*) 30 ml PO Q4H PRN PRN Reason: INDIGESTION Albuterol (Ventolin Hfa Inhaler*) 2 puff INH Q4H PRN PRN Reason: SHORTNESS OF BREATH Last Admin: 08/01/16 18:55 Dose: 2 puff Atorvastatin Calcium (Lipitor*) 20 mg PO BEDTIME [facility] Last Admin: 08/03/16 21:02 Dose: 20 mg Fluphenazine HCl (Prolixin Tab*) 5 mg PO BID [facility] Last Admin: 08/04/16 09:18 Dose: 5 mg Glipizide (Glucotrol Tab*) 5 mg PO BID [facility] Last Admin: 08/04/16 16:44 Dose: 5 mg Insulin Human Lispro (Humalog*) 1 units SUBCUT [facility] PRN Reason: Protocol Last Admin: 08/04/16 16:41 Dose: Not Given Levothyroxine Sodium (Synthroid Tab*) 112 mcg PO 0600 [facility] Last Admin: 08/04/16 09:19 Dose: 112 mcg Lisinopril (Prinivil Tab*) 10 mg PO DAILY [facility] Last Admin: 08/04/16 09:18 Dose: 10 mg Loperamide HCl (Imodium Cap*) 2 mg PO .SEE DIRECTIONS PRN PRN Reason: DIARRHEA Mometasone Furoate/Formoterol Fumar (Dulera 200/5 Mdi*) 2 puff INH BID [facility] Last Admin: 08/04/16 09:19 Dose: 2 puff Multivitamins (Theragran Tab*) 1 tab PO DAILY [facility] Last Admin: 08/04/16 09:18 Dose: 1 tab Nicotine (Nicotine Inhaler*) 10 mg INH Q2H PRN PRN Reason: CRAVING Olanzapine (Zyprexa Tab*) 20 mg PO BEDTIME [facility] Last Admin: 08/03/16 21:01 Dose: 20 mg Paliperidone Palmitate (Invega Sustenna*) 156 mg IM Q30D [facility] Rivaroxaban (Xarelto (*)) 20 mg PO DAILY [facility] Last Admin: 08/04/16 09:19 Dose: 20 mg Sertraline HCl (Zoloft*) 200 mg PO DAILY [facility] Last Admin: 08/04/16 09:18 Dose: 200 mg Tiotropium [place] (Spiriva Cap.Inh*) 1 cap INH DAILY [facility] Last Admin: 08/04/16 09:16 Dose: 1 inhaler Trazodone HCl (Desyrel Tab*) 50 mg PO BEDTIME PRN PRN Reason: SLEEP Last Admin: 08/01/16 22:25 Dose: 50 mg Vital Signs 08/04/16 08/04/16 08/04/16 00:00 07:25 08:09 Temperature 97.7 F Pulse Rate 60 Respiratory 16 Rate Blood Pressure 119/49 (mmHg) O2 Sat by Pulse 92 96 96 Oximetry 08/04/16 08/04/16 08/04/16 12:37 16:58 17:00 Temperature Pulse Rate 68 91 Respiratory 18 Rate Blood Pressure 120/53 122/107 (mmHg) O2 Sat by Pulse Oximetry 08/04/16 17:01 Temperature Pulse Rate 107 Respiratory Rate Blood Pressure 125/78 (mmHg) O2 Sat by Pulse Oximetry Oxygen Devices in Use Now: None Appearance: Male patient, sitting in chair, in NAD Eyes: PERRLA Ears/Nose/Mouth/Throat: Clear Oropharnyx, Mucous Membranes Moist Neck: NL Appearance and Movements; NL JVP, Trachea Midline, No Thyroid Enlargement, Masses Respiratory: Symmetrical Chest Expansion and Respiratory Effort, - - scattered wheezes and rhonchi, O2 sat 92-95% on RA Cardiovascular: NL Sounds; No Murmurs; No JVD, RRR Abdominal: NL Sounds; No Tenderness; No Distention Extremities: No Clubbing, Cyanosis Skin: No Rash or Ulcers Neurological: Alert and Oriented x 3 Nutrition: Taking PO's Assess/Plan/Problems-Billing Mr. Mccallum is a 56 yo male patient with a PMH of COPD, schizoaffective disorder, PE, DM, supermorbid obesity, and hypothyroidism who is admitted to the [facility] for management of psychosis; hospital medicine consulting for evaluation of hypotension/orthostatic hypotension. - Patient Problems (1) Orthostatic hypotension Code(s): I95.1 - ORTHOSTATIC HYPOTENSION Comment: Improved today. Patient did not demonstrate any orthostatic hypotension; VSS. Denied dizziness or lightheadedness with position change. Continue to encourage PO fluids. Recommend restarting furosemide with hold parameters tomorrow, assuming patient' s VS remain stable. (2) HTN (hypertension) Code(s): I10 - ESSENTIAL (PRIMARY) HYPERTENSION Comment: Continue lisinopril. Restart furosemide with hold parameters tomorrow, as long as VS remain stable. (3) COPD (chronic obstructive pulmonary disease) Code(s): J44.9 - CHRONIC OBSTRUCTIVE PULMONARY DISEASE, UNSPECIFIED Comment: No signs of exacerbation. Continue inhalers and nebulizers. Guaifenesin ordered due to patient c/o cough. (4) DM type 2 (diabetes mellitus, type 2) Comment: BG fairly well controlled. Linagliptin not available, continue glipizide and HISS. (5) Pulmonary embolism Code(s): I26.99 - OTHER PULMONARY EMBOLISM WITHOUT ACUTE COR PULMONALE Comment : Continue Xarelto at 20 mg daily. 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 (7) Schizo affective schizophrenia Code(s): F25.0 - SCHIZOAFFECTIVE DISORDER, BIPOLAR TYPE Comment: Management per [facility] Continue fluphenazine, olanzapine, paliperidone, and trazadone. (8) FEN Comment: Consistent carb diet (9) DVT prophylaxis Code(s): LSV3399 - Comment: Xarelto Status and Disposition: Disposition per [facility]. Conitnue to encourage PO fluids. Restart furosemide tomorrow with hold parameters. Continue Xarelto. Mucinex started to assist with c/o cough.
[2016-08-04] MEDS: guaiFENesin ER TAB 600 MG PO SCH (20:42)
[2016-08-04] MEDS: Acetaminophen TAB* 325 MG PO PRN (20:43)
[2016-08-04] MEDS: OLANzapine TAB* 10 MG PO SCH (20:44)
[2016-08-04] MEDS: Atorvastatin* 20 MG TAB PO SCH (20:45)
[2016-08-05] MEDS: Levothyroxine TAB* 112 MCG TAB PO SCH (06:10)
[2016-08-05] MEDS: Insulin LISPRO* 1 UNITS UNIT SUBCUT SCH ×3 (08:11→16:33)
[2016-08-05] MEDS: fluPHENAZine HCL TAB* 5 MG PO SCH ×2 (09:17→20:26)
[2016-08-05] MEDS: Lisinopril TAB* 10 MG PO SCH (09:17)
[2016-08-05] MEDS: Sertraline* 100 MG TAB PO SCH (09:17)
[2016-08-05] MEDS: guaiFENesin ER TAB 600 MG PO SCH ×2 (09:17→20:27)
[2016-08-05] MEDS: Rivaroxaban TAB(*) 20 MG TAB PO SCH (09:17)
[2016-08-05] MEDS: Vitamin THERAPEUTIC TAB PO SCH (09:18)
[2016-08-05] MEDS: Tiotropium CAP.INH* CAP.INH/18 MCG (USE ORDER SET !) INH SCH (09:18)
[2016-08-05] MEDS: Furosemide TAB* 20 MG PO SCH (09:18)
[2016-08-05] MEDS: glipiZIDE TAB* 5 MG PO SCH ×2 (09:18→16:38)
[2016-08-05] MEDS: Mometasone/Formoter 200/5 MDI INH SCH ×2 (09:21→20:26)
[2016-08-05] MEDS: OLANzapine TAB* 10 MG PO SCH (20:26)
[2016-08-05] MEDS: Atorvastatin* 20 MG TAB PO SCH (20:26)
[2016-08-06] MEDS: Levothyroxine TAB* 112 MCG TAB PO SCH (06:45)
[2016-08-06] MEDS: Insulin LISPRO* 1 UNITS UNIT SUBCUT SCH ×3 (07:50→16:45)
[2016-08-06] MEDS: Rivaroxaban TAB(*) 20 MG TAB PO SCH (08:55)
[2016-08-06] MEDS: Tiotropium CAP.INH* CAP.INH/18 MCG (USE ORDER SET !) INH SCH (08:55)
[2016-08-06] MEDS: Furosemide TAB* 20 MG PO SCH (08:55)
[2016-08-06] MEDS: Acetaminophen TAB* 325 MG PO PRN ×2 (08:55→21:28)
[2016-08-06] MEDS: fluPHENAZine HCL TAB* 5 MG PO SCH ×2 (08:55→21:25)
[2016-08-06] MEDS: Vitamin THERAPEUTIC TAB PO SCH (08:55)
[2016-08-06] MEDS: Lisinopril TAB* 10 MG PO SCH (08:56)
[2016-08-06] MEDS: Sertraline* 100 MG TAB PO SCH (08:56)
[2016-08-06] MEDS: Mometasone/Formoter 200/5 MDI INH SCH ×2 (08:57→21:26)
[2016-08-06] MEDS: guaiFENesin ER TAB 600 MG PO SCH ×2 (08:57→21:25)
[2016-08-06] MEDS: glipiZIDE TAB* 5 MG PO SCH ×2 (09:25→16:45)
--- NOTE | 2016-08-06 14:50 | PN ---
Subjective Date of Service: 08/06/16 Interval History: Patient seen and examined at bedside. He was observed drinking a large cup of fruit punch; we discussed drinking less sugary drinks or water in order to control his blood sugar. He agrees and states "It's hard here. I walk around more at home." He is hopeful to go home tomorrow. He denies any further episodes of dizziness. He denies CP, SOB ,abd pain, n/v. He states that his cough has been much better. He asked me for a nicotine patch, which is what he uses at home, to help with his cravings. Family History: Unchanged from Admission Social History: Unchanged from Admission Past Medical History: Unchanged from Admission Objective Active Medications: Acetaminophen (Tylenol Tab*) 650 mg PO Q4H PRN PRN Reason: PAIN or TEMP > 101 F Last Admin: 08/06/16 08:55 Dose: 650 mg Al Hydrox/Mg Hydrox/Simethicone (Maalox Plus*) 30 ml PO Q4H PRN PRN Reason: INDIGESTION Albuterol (Ventolin Hfa Inhaler*) 2 puff INH Q4H PRN PRN Reason: SHORTNESS OF BREATH Last Admin: 08/01/16 18:55 Dose: 2 puff Atorvastatin Calcium (Lipitor*) 20 mg PO BEDTIME [facility] Last Admin: 08/05/16 20:26 Dose: 20 mg Fluphenazine HCl (Prolixin Tab*) 5 mg PO BID [facility] Last Admin: 08/06/16 08:55 Dose: 5 mg Furosemide (Lasix Tab*) 20 mg PO DAILY [facility] Last Admin: 08/06/16 08:55 Dose: 20 mg Glipizide (Glucotrol Tab*) 5 mg PO BID [facility] Last Admin: 08/06/16 09:25 Dose: 5 mg Guaifenesin (Mucinex*) 1,200 mg PO BID [facility] Last Admin: 08/06/16 08:57 Dose: 1,200 mg Insulin Human Lispro (Humalog*) 1 units SUBCUT [facility] PRN Reason: Protocol Last Admin: 08/06/16 11:52 Dose: 9 unit Levothyroxine Sodium (Synthroid Tab*) 112 mcg PO 0600 [facility] Last Admin: 08/06/16 06:45 Dose: 112 mcg Lisinopril (Prinivil Tab*) 10 mg PO DAILY [facility] Last Admin: 08/06/16 08:56 Dose: 10 mg Loperamide HCl (Imodium Cap*) 2 mg PO .SEE DIRECTIONS PRN PRN Reason: DIARRHEA Mometasone Furoate/Formoterol Fumar (Dulera 200/5 Mdi*) 2 puff INH BID [facility] Last Admin: 08/06/16 08:57 Dose: 2 puff Multivitamins (Theragran Tab*) 1 tab PO DAILY [facility] Last Admin: 08/06/16 08:55 Dose: 1 tab Nicotine (Nicotine Inhaler*) 10 mg INH Q2H PRN PRN Reason: CRAVING Nicotine (Nicotine Patch 21 Mg/24 Hr*) 1 patch TRANSDERM Q24H [facility] Olanzapine (Zyprexa Tab*) 20 mg PO BEDTIME [facility] Last Admin: 08/05/16 20:26 Dose: 20 mg Paliperidone Palmitate (Invega Sustenna*) 156 mg IM Q30D [facility] Rivaroxaban (Xarelto (*)) 20 mg PO DAILY [facility] Last Admin: 08/06/16 08:55 Dose: 20 mg Sertraline HCl (Zoloft*) 200 mg PO DAILY [facility] Last Admin: 08/06/16 08:56 Dose: 200 mg Tiotropium [place] (Spiriva Cap.Inh*) 1 cap INH DAILY [facility] Last Admin: 08/06/16 08:55 Dose: 1 inhaler Trazodone HCl (Desyrel Tab*) 50 mg PO BEDTIME PRN PRN Reason: SLEEP Last Admin: 08/01/16 22:25 Dose: 50 mg Vital Signs 08/06/16 08/06/16 07:21 08:13 Temperature 97.7 F Pulse Rate 72 Respiratory 16 Rate Blood Pressure 153/79 (mmHg) O2 Sat by Pulse 94 94 Oximetry Oxygen Devices in Use Now: None Appearance: Male patient, sitting up in bed, in NAD Eyes: PERRLA Ears/Nose/Mouth/Throat: Mucous Membranes Moist Neck: NL Appearance and Movements; NL JVP Respiratory: Symmetrical Chest Expansion and Respiratory Effort, Clear to Auscultation Cardiovascular: NL Sounds; No Murmurs; No JVD, RRR Abdominal: NL Sounds; No Tenderness; No Distention Extremities: No Edema Skin: No Rash or Ulcers Neurological: Alert and Oriented x 3 Nutrition: Taking PO's Assess/Plan/Problems-Billing Mr. Mccallum is a 56 yo male patient with a PMH of COPD, schizoaffective disorder, PE, DM, supermorbid obesity, and hypothyroidism who is admitted to the [facility] for management of psychosis; hospital medicine consulting for evaluation of hypotension/orthostatic hypotension. - Patient Problems (1) Orthostatic hypotension Code(s): I95.1 - ORTHOSTATIC HYPOTENSION Comment: Suspect secondary to dehydration, now resolved. Continue to encourage PO fluids. Continue furosemide with hold parameters. (2) HTN (hypertension) Code(s): I10 - ESSENTIAL (PRIMARY) HYPERTENSION Comment: Continue lisinopril and furosemide with hold parameters. (3) COPD (chronic obstructive pulmonary disease) Code(s): J44.9 - CHRONIC OBSTRUCTIVE PULMONARY DISEASE, UNSPECIFIED Comment: No signs of exacerbation. Continue inhalers and nebulizers. Continue guaifenesin. (4) DM type 2 (diabetes mellitus, type 2) Comment: BG fairly well controlled. Encourage healthier snack choices, avoid sugary drinks. Linagliptin not available, continue glipizide and HISS. (5) Pulmonary embolism Code(s): I26.99 - OTHER PULMONARY EMBOLISM WITHOUT ACUTE COR PULMONALE Comment : Continue Xarelto at 20 mg daily. (6) Morbid obesity Code(s): E66.01 - MORBID (SEVERE) OBESITY DUE TO EXCESS CALORIES Comment: BMI 50.2., will need outpatient follow up and sky line yarder. (7) Schizo affective schizophrenia Code(s): F25.0 - SCHIZOAFFECTIVE DISORDER, BIPOLAR TYPE Comment: Management per [facility] Continue fluphenazine, olanzapine, paliperidone, and trazadone. (8) FEN Comment: Consistent carb diet (9) Tobacco abuse Code(s): Z72.0 - TOBACCO USE Comment: Encouraged smoking cessation. Nicotine patch ordered, per patient request. (10) DVT prophylaxis Code(s): CDA3502 - Comment: Xarelto Status and Disposition: Disposition per [facility]. Continue to encourage PO fluids. Continue Xarelto. Thank you for this consultation. Please feel free to contact us for any additional needs.
[2016-08-06] MEDS: Nicotine PATCH 21 MG/24 HR* PATCH TRANSDERM SCH (16:04)
--- NOTE | 2016-08-06 20:10 | PN ---
Progress Note - Progress Note Note: Patient told there are two patients on the unit (did not disclose their names) who have tested positive for Influenza A and I am recommending taking Tamiflu as a prophylactic measure. I made it clear this was optional. He declined the treatment after hearing of the indications, risks, benefits and alternatives.
[2016-08-06] MEDS: Atorvastatin* 20 MG TAB PO SCH (21:25)
[2016-08-06] MEDS: OLANzapine TAB* 10 MG PO SCH (21:27)
[2016-08-06] MEDS: Nicotine Patch Removal NOTE PATCH OFF SCH (21:27)
[2016-08-07] MEDS: Levothyroxine TAB* 112 MCG TAB PO SCH (06:07)
[2016-08-07 07:33] VITALS: BP 118/75
[2016-08-07] MEDS: Insulin LISPRO* 1 UNITS UNIT SUBCUT SCH ×3 (08:31→16:44)
[2016-08-07] MEDS: Nicotine PATCH 21 MG/24 HR* PATCH TRANSDERM SCH (08:32)
[2016-08-07] MEDS: Lisinopril TAB* 10 MG PO SCH (08:33)
[2016-08-07] MEDS: Vitamin THERAPEUTIC TAB PO SCH (08:33)
[2016-08-07] MEDS: glipiZIDE TAB* 5 MG PO SCH ×2 (08:33→16:44)
[2016-08-07] MEDS: fluPHENAZine HCL TAB* 5 MG PO SCH ×2 (08:33→21:09)
[2016-08-07] MEDS: Sertraline* 100 MG TAB PO SCH (08:34)
[2016-08-07] MEDS: Tiotropium CAP.INH* CAP.INH/18 MCG (USE ORDER SET !) INH SCH (08:34)
[2016-08-07] MEDS: Furosemide TAB* 20 MG PO SCH (08:37)
[2016-08-07] MEDS: guaiFENesin ER TAB 600 MG PO SCH ×2 (08:37→21:09)
[2016-08-07] MEDS: Rivaroxaban TAB(*) 20 MG TAB PO SCH (08:38)
[2016-08-07] MEDS: Mometasone/Formoter 200/5 MDI INH SCH ×2 (08:38→23:59)
[2016-08-07] MEDS: Albuterol HFA INHALER* 8 gm MDI INH PRN (13:21)
--- NOTE | 2016-08-07 14:42 | PN ---
Subjective - Subjective Service Type: 23822 Hosp care 15 min low complexity Subjective: The patient remains calm and cooperative, albeit poorly organized. The patient will start receiving at home nursing services starting tomorrow (08/08) at his apartment and he is aware of this. No behavioral problems are noted. Objective - Appearance Appearance: Obese Dysmorphic Features: No Hygiene: Normal Grooming: Well Kept - Behavior Psychomotor Activities: Normal Exhibits Abnormal Movement: No - Attitude and Relatedness Attitude and Relatedness: Cooperative Eye Contact: Fair - Speech Quality: Unpressured Latencies: Normal Quantity: Appropriate - Mood Patient's Decription of Mood: "Good" - Affect Observed Affect: Good Affect Consistent with: Euthymia - Thought Process Patient's Thought Process: Disorganized Thought Content: No Passive Wish, No Suicidal Planning, No Homicidal Ideation, No Paranoid Ideation - Sensorium Experiencing Hallucinations: No, Sensorium is Clear Type of Hallucinations: Visual: No, Auditory: No, Command: No - Level of Consciousness Level of Consciousness: Alert Orientation: Yes Intact, Yes Orientated to Time, Yes Orientated to Place, Yes Orientated to Person - Impulse Control Impulse Control: Tenuous - Insight and Judgement Insight and Judgement: Fair - Group Participation Particating in Group Activities: Yes - Medication Management Medication Management Adherence: Yes Assessment - Assessment Merits Inpatient Hospitalization: Consolidate Improvements, Pending Safe DC Plan Inpatient DSM-IV Dx: Schizoaffective DO, Bipolar Type Clinical Impression: 56 y.o. single, white male with a history of schizoaffective DO, morbid obesity and multiple medical comorbidities including DM, active PE and COPD, transferred by the medical service due to gross thought disorganization. Plan - Plan Treatment Plan: Name: GEORGE HOBSON Birthdate: 1960 [id number] The patient's delirium appears to be improving on three neuroleptic medications : olanzapine, injectable paliperidone and twice daily fluphenazine. We have increased his at-home nursing supports in advance of discharging him back to his apartment tomorrow. Continued Medication Management: Continue Outpt Medication Medications: Current Medications Acetaminophen (Tylenol Tab*) 650 mg PO Q4H PRN PRN Reason: PAIN or TEMP > 101 F Last Admin: 08/06/16 21:28 Dose: 650 mg Al Hydrox/Mg Hydrox/Simethicone (Maalox Plus*) 30 ml PO Q4H PRN PRN Reason: INDIGESTION Albuterol (Ventolin Hfa Inhaler*) 2 puff INH Q4H PRN PRN Reason: SHORTNESS OF BREATH Last Admin: 08/07/16 13:21 Dose: 2 puff Atorvastatin Calcium (Lipitor*) 20 mg PO BEDTIME [facility] Last Admin: 08/06/16 21:25 Dose: 20 mg Fluphenazine HCl (Prolixin Tab*) 5 mg PO BID [facility] Last Admin: 08/07/16 08:33 Dose: 5 mg Furosemide (Lasix Tab*) 20 mg PO DAILY [facility] Last Admin: 08/07/16 08:37 Dose: 20 mg Glipizide (Glucotrol Tab*) 5 mg PO BID [facility] Last Admin: 08/07/16 08:33 Dose: 5 mg Guaifenesin (Mucinex*) 1,200 mg PO BID [facility] Last Admin: 08/07/16 08:37 Dose: 1,200 mg Insulin Human Lispro (Humalog*) 1 units SUBCUT [facility] PRN Reason: Protocol Last Admin: 08/07/16 12:27 Dose: 3 unit Levothyroxine Sodium (Synthroid Tab*) 112 mcg PO 0600 [facility] Last Admin: 08/07/16 06:07 Dose: 112 mcg Lisinopril (Prinivil Tab*) 10 mg PO DAILY [facility] Last Admin: 08/07/16 08:33 Dose: 10 mg Loperamide HCl (Imodium Cap*) 2 mg PO .SEE DIRECTIONS PRN PRN Reason: DIARRHEA Mometasone Furoate/Formoterol Fumar (Dulera 200/5 Mdi*) 2 puff INH BID [facility] Last Admin: 08/07/16 08:38 Dose: 2 puff Multivitamins (Theragran Tab*) 1 tab PO DAILY [facility] Last Admin: 08/07/16 08:33 Dose: 1 tab Nicotine (Nicotine Inhaler*) 10 mg INH Q2H PRN PRN Reason: CRAVING Nicotine (Nicotine Patch 21 Mg/24 Hr*) 1 patch TRANSDERM DAILY [facility] Last Admin: 08/07/16 08:32 Dose: 1 patch Olanzapine (Zyprexa Tab*) 20 mg PO BEDTIME [facility] Last Admin: 08/06/16 21:27 Dose: 20 mg Paliperidone Palmitate (Invega Sustenna*) 156 mg IM Q30D [facility] Pharmacy Profile Note (Nicotine Patch Removal Note*) 1 note PATCH OFF 2100 [facility] Last Admin: 08/06/16 21:27 Dose: Not Given Rivaroxaban (Xarelto (*)) 20 mg PO DAILY [facility] Last Admin: 08/07/16 08:38 Dose: 20 mg Sertraline HCl (Zoloft*) 200 mg PO DAILY [facility] Last Admin: 08/07/16 08:34 Dose: 200 mg Tiotropium [place] (Spiriva Cap.Inh*) 1 cap INH DAILY [facility] Last Admin: 08/07/16 08:34 Dose: 1 inhaler Trazodone HCl (Desyrel Tab*) 50 mg PO BEDTIME PRN PRN Reason: SLEEP Last Admin: 08/01/16 22:25 Dose: 50 mg - Discharge Plan Discharge Plan: Outpatient Follow Up Outpatient Program: [facility]
[2016-08-07] MEDS: OLANzapine TAB* 10 MG PO SCH (21:09)
[2016-08-07] MEDS: Atorvastatin* 20 MG TAB PO SCH (21:09)
[2016-08-08] MEDS: Insulin LISPRO* 1 UNITS UNIT SUBCUT SCH ×2 (08:00→12:08)
[2016-08-08] MEDS: Nicotine Patch Removal NOTE PATCH OFF SCH (09:54)
[2016-08-08] MEDS: fluPHENAZine HCL TAB* 5 MG PO SCH (09:56)
[2016-08-08] MEDS: Rivaroxaban TAB(*) 20 MG TAB PO SCH (09:56)
[2016-08-08] MEDS: Furosemide TAB* 20 MG PO SCH (09:56)
[2016-08-08] MEDS: Sertraline* 100 MG TAB PO SCH (09:56)
[2016-08-08] MEDS: Vitamin THERAPEUTIC TAB PO SCH (09:57)
[2016-08-08] MEDS: Lisinopril TAB* 10 MG PO SCH (09:57)
[2016-08-08] MEDS: Tiotropium CAP.INH* CAP.INH/18 MCG (USE ORDER SET !) INH SCH (09:58)
[2016-08-08] MEDS: guaiFENesin ER TAB 600 MG PO SCH (10:00)
[2016-08-08] MEDS: Nicotine PATCH 21 MG/24 HR* PATCH TRANSDERM SCH (10:01)
[2016-08-08] MEDS: Mometasone/Formoter 200/5 MDI INH SCH (10:38)
[2016-08-08] MEDS: glipiZIDE TAB* 5 MG PO SCH (10:50)
[2016-08-08] MEDS: Levothyroxine TAB* 112 MCG TAB PO SCH (10:50)
--- NOTE | 2016-08-09 01:21 | DS ---
DISCHARGE SUMMARY: DATE OF ADMISSION: 07/29/16 DATE OF DISCHARGE: 08/08/16 DISCHARGE DIAGNOSES: Union I: Delirium secondary to pulmonary embolus, schizoaffective disorder bipolar type. Union II: Deferred. Union III: Acute pulmonary embolus, morbid obesity, type 2 diabetes, hypertension, hypothyroidism, hyperlipidemia, and obstructive sleep apnea. Union IV: Moderate primary support stressors. Union V: At that time of admission was 35 and at the time of discharge is 50. CONDITION AT THE TIME OF DISCHARGE: Improved. The patient's mentation has significantly improved to the point where he is eating, drinking, bathing himself, and showing the ability to plan for the future. Most importantly we have increased the amount of psychosocial support he is to expect in the community, specifically by getting the visiting nurse's service to visit him on a daily basis to provide in- home care including med management and assistance with activities of daily living. The patient is in agreement with the plan to return home to his apartment in a facility in [facility] that caters to folks with disabilities and folks with aging. He is denying suicidal or homicidal ideations. He denies paranoia or psychotic symptoms and he is oriented to time and place. MENTAL STATUS EXAM: The patient is a middle aged white male who is morbidly obese wearing a blue T-shirt and baggy sweat pants who is calm and cooperative. He is easy to establish a rapport with. Speech has a normal rate, tone, and volume. Thought process does show some mild thought disorganization; however, he is alert and oriented. Thought content is significant for his desire to return home. He is aware that he will be receiving intensive services through the visiting nurse service. Mood is euthymic with a full affect. The patient is denying suicidal or homicidal ideations. He denies auditory or visual hallucinations. Insight and judgment are fair given his willingness to follow up with [facility]. Cognitively he is awake, and alert, oriented with some deficits in attention and delayed recall. DISCHARGE INSTRUCTIONS: To the patient are as follows: A. Medications. He is to be taking albuterol inhaler 2 puffs as needed every 4 hours for wheezing, trazodone 50 mg at bedtime as needed for sleep, Zocor 40 mg p.o. at bedtime, he takes Dulera 200/5 two puffs inhaled b.i.d., Zyprexa 20 mg every night at bedtime, Synthroid 112 mcg every morning, glipizide 5 mg p.o. b.i.d., sliding scale insulin, he takes lisinopril 10 mg daily, sertraline 200 mg p.o. daily, therapeutic vitamin once daily, Spiriva inhaled once daily, Xarelto 20 mg p.o. daily, Lasix 20 mg p.o. daily, and Invega Sustenna 56 mg daily with next injection due on 08/17/16. B. Diet. He is on a diabetic diet. C. Activities. As tolerated. The patient is strongly encouraged to abstain from tobacco products in the future; however, he is declining the offer of continued nicotine replacement therapy indicating his preference to continue smoking cigarettes for the time being. D. Followup care. The patient will follow up with Dr. Porfirio Arciniega at [facility] on , August 10 at 2 p.m. HOSPITAL COURSE: As follows: Part A: Reason for admission: The patient is a 56-year-old single while male with a history of schizoaffective disorder who has had several recent medical hospitalizations up on the 4th floor at [facility] recently due to pulmonary problems, who was transferred to our service due to delirium and altered mentation that did not seem to be improving on the 4th floor. The issue was that he had recently been admitted with an exacerbation of COPD which led to abnormally elevated carbon dioxide levels. Thereafter, he was discharged to home, but then developed a pulmonary embolus and was forced to return to the hospital and receive anticoagulant therapy. The hospital was able to successfully discharge him to a [facility] for 3 days, but then he became extremely confused and was sent back to the ER when he made an appointment at [facility] but appeared to be extremely delirious. There he continued to receive his outpatient medications and through this psychiatric consult service he was started on an additional medication of 5 mg fluphenazine twice daily. Unfortunately, he did not improve and it was felt that a trip to the psychiatric unit would provide a more beneficial milieu setting for him to overcome his delirium. Part B: Psychiatric treatment rendered: The patient was admitted to the behavioral health unit. All his medications were continued including the olanzapine 20 mg that he takes on the outpatient basis, Invega Sustenna which he only receives once monthly through an injection, and also the fluphenazine 5 mg twice daily that he was taking on the inpatient medical service. It took the patient several days, but we did see some mild improvement on a day to day basis in which he was far better oriented and far better able to plan for the future. We did get consultation by both the physical therapy and occupational therapy services who did not feel that he warranted inpatient rehab and for this reason we decided to discharge him back to his apartment but with enhanced rn social services in the home. He is already a client of visiting nurse services , but we were able to contact that agency and get them to agree to seeing him more frequently. At this time we do not feel that he needs to be on Prolixin anymore so this was discontinued. It is notable that he is on 2 antipsychotics still at the time of discharge being olanzapine and Invega. This is basically due to the fact that this is what he takes on an outpatient basis and it could be that [facility] is in the act of cross tapering these two medications. At this point, he has not represented any behavioral problems on the unit. He is not suicidal nor homicidal and with assistance he actually does quite well. [id number]/[facility] #: [id number] EEDR
[2016-08-17] MEDS ORDERED: Paliperidone SUSTENNA* 156 MG/1 ML IM SCH (09:00)
== END 2016-08-08 12:25 | disposition home or self-care (01) | DRG 885 ==
LOC: BSU 16:10
PROVIDERS: ADMIT Psychiatry & Neurology Psychiatry; ATTEND Psychiatry & Neurology Psychiatry
DX: F25.0 Schizoaffective disorder, bipolar type (principal); I26.99 Other pulmonary embolism without acute cor pulmonale; Z68.43 Body mass index [BMI] 50.0-59.9, adult; R41.0 Disorientation, unspecified; E66.01 Morbid (severe) obesity due to excess calories; E11.9 Type 2 diabetes mellitus without complications; I10 Essential (primary) hypertension; E03.9 Hypothyroidism, unspecified; E78.5 Hyperlipidemia, unspecified; G47.33 Obstructive sleep apnea (adult) (pediatric); I95.1 Orthostatic hypotension; E86.0 Dehydration; J44.9 Chronic obstructive pulmonary disease, unspecified; F17.210 Nicotine dependence, cigarettes, uncomplicated; Z81.8 Family history of other mental and behavioral disorders; Z79.1 Long term (current) use of non-steroidal anti-inflammatories (NSAID); Z79.4 Long term (current) use of insulin; Z79.899 Other long term (current) drug therapy
CPT/HCPCS: 90853; 94760; 99222; 99231; 99238; 99406; A9270-GY

== ENCOUNTER 2016-10-10 09:55 | Inpatient (IN) | payer MEDICARE, MEDICAID ==
[2016-10-10 11:42] LABS: Hematocrit 41 % (42-52); Hemoglobin 13.2 g/dl (14.0-18.0); Mean Corpuscular HGB Conc 33 g/dl (31-36); Mean Corpuscular Hemoglobin 29 pg (27-31); Mean Corpuscular Volume 89 fL (80-94); Mean Platelet Volume 7 um3 (7.4-10.4); Red Blood Count 4.56 10^6/ul (4.0-5.4); Red Cell Distribution Width 15 % (10.5-15); White Blood Count 7.3 10^3/ul (3.5-10.8)
[2016-10-10] MEDS ORDERED: Albuterol/Ipratropium NEB.SOL* Albuterol 2.5 MG/Ipratropium 0.5 MG 3 ML INH ONE (11:58)
[2016-10-10] MEDS ORDERED: methylPREDNISolone SOD SUCC* 125 MG 2 ML VIAL IV ONE (11:58)
[2016-10-10 11:59] LABS: Albumin 3.7 g/dL (3.2-5.2); Calcium 8.8 mg/dL (8.6-10.3); EGFR African American 163.4 (>60); EGFR Non-African American 127.1 (>60); Globulin 3.1 g/dL (2-4); Total Bilirubin 0.3 mg/dL (0.2-1.0); Total Protein 6.8 g/dL (6.4-8.9)
[2016-10-10 12:27] LABS: PCO2 Arterial 73 mmHg (35-45)
--- NOTE | 2016-10-10 12:28 | RAD ---
HISTORY: Shortness of breath COMPARISONS: July 19, 2016 VIEWS:1: Single frontal portable view of the chest at 11:35 AM FINDINGS: LINES AND TUBES: None. CARDIOMEDIASTINAL SILHOUETTE: The cardiomediastinal silhouette is normal for portable technique. PLEURA: The costophrenic angles are sharp. No pleural abnormalities are noted. LUNG PARENCHYMA: There is patchy alveolar opacification of the left lung base. There is prominence of the central pulmonary vessels vasculature. ABDOMEN: The upper abdomen is clear. There is no subphrenic gas. BONES AND SOFT TISSUES: No bone or soft tissue abnormalities are noted. IMPRESSION: 1. PATCHY AIRSPACE DISEASE OF THE LEFT LUNG BASE. 2. PULMONARY VASCULAR CONGESTION
[2016-10-10] MEDS ORDERED: Azithromycin IV(*) 500 MG in NS 0.9% 250 ML* 250 ML IVPB ONE (12:38)
[2016-10-10] MEDS ORDERED: cefTRIAXone(*) 1 GM in NS 0.9% 50 ML* 50 ML IVPB ONE (12:38)
[2016-10-10] MEDS ORDERED: methylPREDNISolone SOD SUCC* 125 MG 2 ML VIAL ONE (12:47)
[2016-10-10] MEDS ORDERED: Azithromycin IV* 500 MG ADVAN VIAL IVPB ONE (12:47)
[2016-10-10] MEDS ORDERED: cefTRIAXone(*) 1 GM ADVAN ONE (12:47)
[2016-10-10] MEDS ORDERED: Albuterol/Ipratropium NEB.SOL* Albuterol 2.5 MG/Ipratropium 0.5 MG 3 ML ONE (12:49)
[2016-10-10] MEDS ORDERED: Albuterol (2.5 MG) 0.5 % CONC 2.5 MG/0.5 ML NEB.SOLN INH SCH (15:30)
[2016-10-10] MEDS: glipiZIDE TAB* 5 MG PO SCH (17:26)
[2016-10-10] MEDS: Albuterol 2.5 MG/3 ML NEB.SOL* (0.083%) INH SCH (20:03)
[2016-10-10] MEDS: medroxyPROGESTERone TAB* 10 MG PO SCH (20:59)
[2016-10-10] MEDS: Atorvastatin* 10 MG TAB PO SCH (20:59)
[2016-10-10] MEDS: OLANzapine TAB* 10 MG PO SCH (21:00)
[2016-10-10] MEDS: Famotidine TAB* 20 MG PO SCH (21:00)
[2016-10-10] MEDS: Pregabalin CAP(*) 100 MG PO SCH (21:00)
--- NOTE | 2016-10-10 21:00 | HP ---
ADMISSION HISTORY AND PHYSICAL: DATE OF ADMISSION: 10/10/16 REASON FOR ADMISSION: Respiratory failure and confusion. HISTORY OF PRESENT ILLNESS: This patient is a 56-year-old male with multiple medical problems including morbid obesity, obesity hypoventilation syndrome, schizoaffective disorder, hypertension, hypothyroidism, type 2 diabetes, and venous thromboembolism. The patient was brought to the emergency room earlier today because of episode of confusion and in the emergency room the patient was noted to have a pCO2 of 74 and pH of 7.29. The patient was alert but somewhat confused about the events that brought him to the ED (he was last seen. Chest x -ray did not reveal a pneumonia, and the patient was admitted with diagnoses of hypercapnic respiratory failure and episodic confusion. The patient was last seen at [facility] here in July 2016, with complaints of confusion. The patient denies chest pain, cough, sputum production, or recent alcohol or illicit drug ingestion. Remainder of the history is noncontributory. OUTPATIENT MEDICATIONS: Include; 1. Albuterol by nebulizer. 2. Glipizide (5 mg p.o. b.i.d.) 3. Simvastatin (40 mg p.o. at bedtime). 4. Lyrica 100 mg p.o. b.i.d. 5. Zyprexa (20 mg p.o. at bedtime). 6. Levothyroxine (112 mcg p.o. daily). 7. Zoloft (200 mg p.o. daily). 8. Lisinopril (20 mg p.o. daily). 9. Furosemide (20 mg p.o. daily). 10. Sustenna (150 mg IM monthly). 11. Prilosec (20 mg p.o. daily). 12. Xarelto (20 mg p.o. daily). DRUG ALLERGIES: Include HALOPERIDOL (unknown reaction details). The patient also claims a FISH ALLERGY (unknown reaction). REVIEW OF SYSTEMS: Noncontributory. PHYSICAL EXAMINATION GENERAL: The patient was somnolent, but easily arousable. He was oriented to person, place, and time, but could not recall events earlier in the day. VITAL SIGNS: Temperature 98.6, heart rate 79 and regular, respiratory rate 18, O2 saturation 96%, FiO2 of 40%, blood pressure 123/60. HEENT: Oropharynx is clear. NECK: Supple. No masses or jugular venous distention. LUNGS: Breath sounds distant. No crackles. No wheezes. CARDIAC: No murmurs, rubs, or gallops. ABDOMEN: Protuberant. EXTREMITIES: 1 to 2+ edema. No cyanosis. NEUROLOGIC: Moves all extremities. No facial asymmetry. No apparent neurologic deficits. DIAGNOSTIC STUDIES/LAB DATA: On admission, laboratory data white count normal at 7.3, hemoglobin 13.2, platelets normal at 184,000. Electrolytes notable for a bicarbonate of 34. Glucose was 165. Blood gases revealed a pH of 7.29, pCO2 of 73, and a pO2 of 83. Chest x-ray showed cardiomegaly with no pulmonary infiltrates. Electrocardiogram showed normal sinus rhythm. OVERALL IMPRESSION: The patient with obesity hypoventilation syndrome and hypercapnic respiratory failure. It is difficult to determine if the hypercapnia is responsible for the confusion or if the patient's schizophrenia is the culprit. PLAN: We will place the patient on BiPAP in an attempt to partially resolve the hypercapnia, and also start oral medroxyprogesterone as the treatment for the obesity hypoventilation syndrome. If confusion persists, we will consult the behavioral health unit. CRITICAL CARE TIME: 60 minutes. [id number]/[facility] #: [id number] EDER
[2016-10-10] MEDS: Insulin LISPRO* 1 UNITS UNIT SUBCUT SCH (22:17)
[2016-10-11] MEDS: Albuterol 2.5 MG/3 ML NEB.SOL* (0.083%) INH SCH ×2 (01:06→07:36)
[2016-10-11] MEDS: Levothyroxine TAB* 112 MCG TAB PO SCH (06:16)
[2016-10-11 08:24] LABS: Hematocrit 44 % (42-52); Hemoglobin 14.3 g/dl (14.0-18.0); Mean Corpuscular HGB Conc 32 g/dl (31-36); Mean Corpuscular Hemoglobin 29 pg (27-31); Mean Corpuscular Volume 89 fL (80-94); Mean Platelet Volume 8 um3 (7.4-10.4); Red Blood Count 4.94 10^6/ul (4.0-5.4); Red Cell Distribution Width 15 % (10.5-15); White Blood Count 13.8 10^3/ul (3.5-10.8)
[2016-10-11] MEDS: Insulin LISPRO* 1 UNITS UNIT SUBCUT SCH ×4 (08:29→21:33)
[2016-10-11] MEDS: Famotidine TAB* 20 MG PO SCH ×2 (08:30→21:32)
[2016-10-11] MEDS: Lisinopril TAB* 10 MG PO SCH (08:30)
[2016-10-11] MEDS: Furosemide TAB* 20 MG PO SCH (08:30)
[2016-10-11] MEDS: Rivaroxaban TAB(*) 20 MG TAB PO SCH (08:30)
[2016-10-11] MEDS: Pregabalin CAP(*) 100 MG PO SCH ×2 (08:31→21:33)
[2016-10-11] MEDS: medroxyPROGESTERone TAB* 10 MG PO SCH ×3 (08:31→21:32)
[2016-10-11 08:47] LABS: BUN/Creatinine Ratio 15.6 (8-20); Calcium 9.4 mg/dL (8.6-10.3); EGFR African American 166.4 (>60); EGFR Non-African American 129.4 (>60); Potassium 4.4 mmol/L (3.5-5.0)
[2016-10-11] MEDS: glipiZIDE TAB* 5 MG PO SCH ×2 (09:14→18:20)
--- NOTE | 2016-10-11 11:27 | PN ---
Critical Care Services: More awake this AM Vital Signs: Temp Pulse Resp BP SpO2 FiO2 98.5 F 82 17 130/62 93 40 Physical Exam: Gen:Alert and oriented. Lungs:Breath sounds distant Extremities: No cyanosis. 1+edema Fluid Balance (Past 24 Hours): 10/11/16 06:59 Intake Total 1060 Output Total 1850 Balance -790 Weight 366 lb Intake: IV Fluids 50 IVPB 410 NS to Maintain IV Patency 160 Oral 600 Output: Urine 1850 Labs: 10/11/16 10/11/16 08:10 08:10 WBC 13.8 Hgb 14.3 Hct 44 Plt Count 198 Sodium 137 Potassium 4.4 Chloride 99 L Carbon Dioxide 36 BUN 10 Creatinine 0.64 L Glucose 152 H POC Glucose (mg/dL) 148 Calcium 9.4 Influenza A (Rapid) Negative Influenza B (Rapid) Negative Studies: Nasal swab: MRSA positive. Blood and urine cultures pending. Nutrition: Consistent carb diet Impression: Clinically stable. Hypercapnia probably chronic, and not a cause for patients confusion on admission. Plan: Psych evaluation.
[2016-10-11 11:34] LABS: Urine Bilirubin Negative (Negative); Urine Glucose Negative (Negative); Urine Nitrite Negative (Negative)
[2016-10-11] MEDS: Nystatin TOP POWDER* 15 GM BTL TOPICAL SCH ×2 (12:14→21:33)
--- NOTE | 2016-10-11 17:19 | CONSULT ---
Consult Consult: Patient seen and examined by psychiatry. Consultation dictated and pending typing.
--- NOTE | 2016-10-11 18:11 | CONS ---
CONSULTATION REPORT: DATE OF CONSULT/DICTATION: 10/11/16 ATTENDING PHYSICIAN: Dr. Silvestre Zapata. CONSULTING PHYSICIAN: Dr. Darren Garibay. REASON FOR CONSULT: Confusion in patient with history of psychiatric illness. HISTORY OF PRESENT ILLNESS: Psychiatry is called to see this 56-year-old white male with a chronic history of schizoaffective disorder due to his third hospitalization in the year of 2016 for similar presentations of pulmonary disease and associated confusion. The patient is well known to me as this is now the third hospitalization in which I have consulted for his care. During his most recent hospitalization in July of 2016, he was transferred to the Behavioral Science Unit for further psychiatric stabilization prior to discharge home. It is my understanding that Andrea lives in a local apartment building that caters to disabled persons with chronic mental illness. He does have a history of chronic nonadherence to medications including oxygen therapy in the home setting. For this reason, he receives intensive outpatient services through visiting nurse services. Despite this, it appears that he has struggled to maintain compliance in the outpatient setting. This is evidenced by his statement when I come in "well, I guess I didn't take my medications again." His explanation for this is quite bizarre and it is in keeping with his recent presentations of confusion and delirium. He states "my medicines are close to the microwave and when I press the button, they start to get hot." On further examination, he is disoriented to place and time, although he is oriented to his personal situation. He appears to recognize this clinician, but does not recall my name. He cannot even provide me with the name of his apartment building or his providers at [facility] where he has been receiving services for over a decade. PAST PSYCHIATRIC HISTORY: The patient has had multiple psychiatric admissions in the past, most recently in July 2016. Prior to this, his most recent admission had been in 2011. He continues to receive outpatient care at the [facility] where his psychiatrist is Dr. Porfirio Arciniega and his therapist is Ramana Ponce. He does carry a diagnosis of schizoaffective disorder. Apparently, he had been on oral olanzapine and injectable paliperidone. In July of 2016, his admitting psychiatric diagnosis was delirium secondary to pulmonary disease. He was accepted on to the psychiatric unit where he continued to receive additional antipsychotic in the form of fluphenazine 5 mg twice daily. Eventually, his mentation improved and he was discharged home. SUBSTANCE ABUSE HISTORY: The patient reports that he used to drink alcohol, but has no active substance abuse within recent history. He does continue to smoke cigarettes despite his pulmonary condition. FAMILY PSYCHIATRIC HISTORY: Past documentation indicates that his mother had some undefined psychiatric illness. SOCIAL HISTORY: The patient lives in an apartment building in the [place], [place]. He is and currently living on disability. He has no known problematic legal history. MENTAL STATUS EXAMINATION: The patient is a morbidly obese white male dressed in patient gown who is disheveled, unkempt. He is sitting upright in a chair, staring at a television that is currently off. Speech is disorganized and illogical, although he speaks fluent Tongan. Mood appears to be euthymic with a somewhat blunted affect. Thought process is scattered, nonlinear, illogical, and disorganized. Thought content is full of non-sequitur, nonsensical content. He denies suicidal or homicidal ideations. He denies auditory or visual hallucinations. Insight and judgment are markedly impaired. Cognitively , he is awake and alert and quite confused. DIAGNOSES: [place] I: Delirium secondary to pulmonary disease, schizoaffective disorder. [place] II: Deferred. ASSESSMENT: The patient is a 56-year-old white male with a chronic history of schizoaffective disorder and a more recent history of encephalopathy secondary to pulmonary dysfunction, who is currently presenting with his third hospitalization of 2017 secondary to confusion, thought disorganization, and a clear inability to care for himself. He is supposed to be receiving intensive outpatient nursing support through the [facility] organization, but it is uncertain what level of care he has been getting. It does not appear at this time that this patient is able to live independently any further in the community. RECOMMENDATIONS TO PRIMARY TEAM: We recommend continuation of outpatient psychiatric medications including olanzapine 20 mg at bedtime. He is also on an Invega Sustenna shot and this clinician will call [facility] to see when his next injection of his is due. The patient experienced a resolution of delirium on our service when he was treated with fluphenazine 5 mg twice daily and I will take the liberty of ordering this at this time on a scheduled basis. The patient will likely require Social Work consultation as it is clear at this point that he is no longer able to live independently in the community. Thank you for the consultation request and the psychiatry service will continue to follow. [id number]/[facility] #: [id number] EDER
[2016-10-11] MEDS: fluPHENAZine HCL TAB* 5 MG PO SCH (21:32)
[2016-10-11] MEDS: OLANzapine TAB* 10 MG PO SCH (21:32)
[2016-10-11] MEDS: Atorvastatin* 10 MG TAB PO SCH (21:33)
[2016-10-12] MEDS: Levothyroxine TAB* 112 MCG TAB PO SCH (05:41)
[2016-10-12 07:17] LABS: BUN/Creatinine Ratio 21.2 (8-20); Calcium 9.1 mg/dL (8.6-10.3); EGFR African American 160.6 (>60); EGFR Non-African American 124.9 (>60); Potassium 4.1 mmol/L (3.5-5.0)
[2016-10-12] MEDS: Lisinopril TAB* 10 MG PO SCH (08:45)
[2016-10-12] MEDS: Insulin LISPRO* 1 UNITS UNIT SUBCUT SCH ×4 (08:56→21:11)
[2016-10-12] MEDS: glipiZIDE TAB* 5 MG PO SCH ×2 (08:57→17:28)
[2016-10-12] MEDS: Famotidine TAB* 20 MG PO SCH ×2 (08:57→21:11)
[2016-10-12] MEDS: Furosemide TAB* 20 MG PO SCH (08:58)
[2016-10-12] MEDS: fluPHENAZine HCL TAB* 5 MG PO SCH ×2 (08:58→21:10)
[2016-10-12] MEDS: medroxyPROGESTERone TAB* 10 MG PO SCH ×2 (08:58→14:27)
[2016-10-12] MEDS: Pregabalin CAP(*) 100 MG PO SCH ×2 (08:59→21:11)
[2016-10-12] MEDS: Rivaroxaban TAB(*) 20 MG TAB PO SCH (08:59)
[2016-10-12] MEDS: Nystatin TOP POWDER* 15 GM BTL TOPICAL SCH ×2 (08:59→21:11)
--- NOTE | 2016-10-12 18:49 | PN ---
Subjective Date of Service: 10/12/16 Interval History: Pt feels well. no new complaints. Objective Active Medications: Atorvastatin Calcium (Lipitor*) 40 mg PO BEDTIME [facility] Last Admin: 10/11/16 21:33 Dose: 40 mg Famotidine (Pepcid Tab*) 20 mg PO BID [facility] Last Admin: 10/12/16 08:57 Dose: 20 mg Fluphenazine HCl (Prolixin Tab*) 5 mg PO BID [facility] Last Admin: 10/12/16 08:58 Dose: 5 mg Furosemide (Lasix Tab*) 20 mg PO DAILY [facility] Last Admin: 10/12/16 08:58 Dose: 20 mg Glipizide (Glucotrol Tab*) 5 mg PO 0800,1700 [facility] Last Admin: 10/12/16 17:28 Dose: 5 mg Insulin Human Lispro (Humalog*) 0 - 18 units SUBCUT [facility] PRN Reason: Protocol Last Admin: 10/12/16 16:56 Dose: Not Given Levothyroxine Sodium (Synthroid Tab*) 112 mcg PO DAILY@0600 [facility] Last Admin: 10/12/16 05:41 Dose: 112 mcg Lisinopril (Prinivil Tab*) 20 mg PO DAILY [facility] Last Admin: 10/12/16 08:45 Dose: Not Given Nystatin (Nystatin Top Powder*) 1 applic TOPICAL BID [facility] Last Admin: 10/12/16 08:59 Dose: 1 apply Olanzapine (Zyprexa Tab*) 20 mg PO BEDTIME [facility] Last Admin: 10/11/16 21:32 Dose: 20 mg Pregabalin (Lyrica Cap(*)) 100 mg PO BID [facility] Last Admin: 10/12/16 08:59 Dose: 100 mg Rivaroxaban (Xarelto (*)) 20 mg PO DAILY [facility] Last Admin: 10/12/16 08:59 Dose: 20 mg Vital Signs 10/11/16 10/11/16 10/11/16 19:00 20:00 21:00 Temperature 97.1 F Pulse Rate 70 69 68 Respiratory 17 16 15 Rate Blood Pressure 122/62 113/54 108/57 (mmHg) O2 Sat by Pulse 96 97 98 Oximetry 10/11/16 10/11/16 10/12/16 22:00 23:17 00:00 Temperature 98.2 F Pulse Rate 66 74 Respiratory 18 18 18 Rate Blood Pressure 123/56 146/70 (mmHg) O2 Sat by Pulse 96 93 Oximetry 10/12/16 10/12/16 10/12/16 03:35 03:46 05:57 Temperature 98.2 F Pulse Rate 69 77 Respiratory 18 20 Rate Blood Pressure 92/40 102/58 141/69 (mmHg) O2 Sat by Pulse 94 90 Oximetry 10/12/16 10/12/16 10/12/16 07:31 08:17 08:59 Temperature 97.6 F Pulse Rate 76 Respiratory 14 16 Rate Blood Pressure 98/39 106/50 (mmHg) O2 Sat by Pulse 97 Oximetry 10/12/16 10/12/16 10/12/16 09:45 10:59 12:05 Temperature 98.3 F Pulse Rate 72 Respiratory 18 16 16 Rate Blood Pressure 116/80 (mmHg) O2 Sat by Pulse 95 Oximetry 10/12/16 10/12/16 15:31 15:38 Temperature 98.1 F Pulse Rate 68 Respiratory 16 18 Rate Blood Pressure 121/64 (mmHg) O2 Sat by Pulse 97 Oximetry Oxygen Devices in Use Now: Nasal Cannula - at 4 L Appearance: 56 yo M in NAD, aAOx3, poor historian Eyes: No Scleral Icterus, PERRLA Ears/Nose/Mouth/Throat: NL Teeth, Lips, Gums, Mucous Membranes Moist Neck: NL Appearance and Movements; NL JVP, Trachea Midline Respiratory: Symmetrical Chest Expansion and Respiratory Effort, Clear to Auscultation Cardiovascular: NL Sounds; No Murmurs; No JVD, RRR Abdominal: NL Sounds; No Tenderness; No Distention Lymphatic: No Cervical Adenopathy Extremities: No Clubbing, Cyanosis, - - trace pedal edema b/l Skin: No Rash or Ulcers, No Nodules or Sclerosis Neurological: Alert and Oriented x 3, NL Muscle Strength and Tone Result Diagrams: 10/11/16 08:10 10/12/16 06:40 Additional Lab and Data: Lab Results 10/10/16 Range/Units 11:35 WBC 7.3 (3.5-10.8) 10^3/ul RBC 4.56 (4.0-5.4) 10^6/ul Hgb 13.2 L (14.0-18.0) g/dl Hct 41 L (42-52) % MCV 89 (80-94) fL MCH 29 (27-31) pg MCHC 33 (31-36) g/dl RDW 15 (10.5-15) % Plt Count 184 (150-450) 10^3/ul MPV 7 L (7.4-10.4) um3 Neut % (Auto) 76.3 (38-83) % Lymph % (Auto) 14.7 L (25-47) % [place] % (Auto) 4.9 (1-9) % Eos % (Auto) 2.4 (0-6) % Baso % (Auto) 1.7 (0-2) % Absolute Neuts (auto) 5.6 (1.5-7.7) 10^3/ul Absolute Lymphs (auto) 1.1 (1.0-4.8) 10^3/ul Absolute Monos (auto) 0.4 (0-0.8) 10^3/ul Absolute Eos (auto) 0.2 (0-0.6) 10^3/ul Absolute Basos (auto) 0.1 (0-0.2) 10^3/ul Absolute Nucleated RBC 0 10^3/ul Nucleated RBC % 0 Microbiology and Other Data: Microbiology 10/10/16 16:00 Aerobic Blood Culture - Preliminary Blood Venous No Growth Day 2 Anaerobic Blood Culture - Preliminary No Growth Day 2 Blood Culture - Final 10/10/16 16:20 Aerobic Blood Culture - Preliminary Blood Venous No Growth Day 2 Anaerobic Blood Culture - Preliminary No Growth Day 2 Blood Culture - Final 10/10/16 17:00 Nasal Screen MRSA (PCR)([facility]) - Final Nasal Mrsa Positive 10/10/16 17:00 Influenza Types A,B Antigen ([facility]) - Final Nasal Specimen received for Influenza A/B Molecular testing Assess/Plan/Problems-Billing Assessment: 56 yo M with h/o schizophrenia, obesity, chronic 02 use at 2 L, HTN. DVT/PE presents with acute hypercapnic respiratory failure - Patient Problems (1) Acute hypercapnic respiratory failure Comment: due to obesity /hypoventilation syndrome. Off BIPAP, now at 4 L NC. Medroxyprogesterone d/c'd due to h/o DVT /PE (2) Schizo affective schizophrenia Comment: Continue fluphenazine, olanzapine, and Invega as per psychiatry consult (3) DM type 2 (diabetes mellitus, type 2) Comment: continue glipizide and ISS. (4) Pulmonary embolism Comment: Remote Continue Xarelto at 20 mg daily. (5) HTN (hypertension) Comment: Continue lisinopril and furosemide , controlled (6) DVT prophylaxis Comment: Xarelto (7) Hypothyroidism Comment: TSH wnl 07/19/16. cont synthroid Status and Disposition: Inpatient, as per psychiatry consult pt is unable to live independently. SW/CM consult pending
[2016-10-12] MEDS: Atorvastatin* 10 MG TAB PO SCH (21:10)
[2016-10-12] MEDS: OLANzapine TAB* 10 MG PO SCH (21:11)
[2016-10-13] MEDS: Levothyroxine TAB* 112 MCG TAB PO SCH (06:03)
[2016-10-13] MEDS: Pregabalin CAP(*) 100 MG PO SCH ×2 (09:24→21:07)
[2016-10-13] MEDS: fluPHENAZine HCL TAB* 5 MG PO SCH ×2 (09:24→21:07)
[2016-10-13] MEDS: Famotidine TAB* 20 MG PO SCH ×2 (09:24→21:08)
[2016-10-13] MEDS: glipiZIDE TAB* 5 MG PO SCH ×2 (09:24→16:55)
[2016-10-13] MEDS: Rivaroxaban TAB(*) 20 MG TAB PO SCH (09:24)
[2016-10-13] MEDS: Furosemide TAB* 20 MG PO SCH (09:24)
[2016-10-13] MEDS: Lisinopril TAB* 10 MG PO SCH (09:25)
[2016-10-13] MEDS: Insulin LISPRO* 1 UNITS UNIT SUBCUT SCH ×4 (09:25→21:07)
[2016-10-13] MEDS: Nystatin TOP POWDER* 15 GM BTL TOPICAL SCH ×2 (09:25→21:10)
[2016-10-13] MEDS ORDERED: Paliperidone SUSTENNA* 234 MG/1.5 ML IM ONE (10:28)
--- NOTE | 2016-10-13 12:04 | CONSULT ---
Identification - Patient Identification Reason for Psychiatric Consultation: Incapacitating Symptoms -: Patient is a 56 year old, M admitted on 10/10/16. - U Identification Employment Status: Disabled Hx Psychiatric Hospitalization: Yes History - Objective Lab Results: Laboratory Tests 10/10/16 10/10/16 10/10/16 16:14 17:31 20:57 WBC RBC Hgb Hct MCV MCH MCHC RDW Plt Count MPV Neut % (Auto) Lymph % (Auto) [place] % (Auto) Eos % (Auto) Baso % (Auto) Absolute Neuts (auto) Absolute Lymphs (auto) Absolute Monos (auto) Absolute Eos (auto) Absolute Basos (auto) Absolute Nucleated RBC Nucleated RBC % Sodium Potassium Chloride Carbon Dioxide Anion Gap BUN Creatinine Est GFR ( Amer) Est GFR (Non-Af Amer) BUN/Creatinine Ratio Glucose POC Glucose (mg/dL) 192 H 256 H Calcium Urine Color Urine Appearance Urine pH Ur Specific [place] Urine Protein Urine Ketones Urine Blood Urine Nitrate Urine Bilirubin Urine Urobilinogen Ur Leukocyte Esterase Urine Glucose Influenza A (Rapid) Negative Influenza B (Rapid) Negative 10/11/16 10/11/16 10/11/16 08:10 08:10 08:11 WBC 13.8 H RBC 4.94 Hgb 14.3 Hct 44 MCV 89 MCH 29 MCHC 32 RDW 15 Plt Count 198 MPV 8 Neut % (Auto) 90.6 H Lymph % (Auto) 5.2 L [place] % (Auto) 3.6 Eos % (Auto) 0.3 Baso % (Auto) 0.3 Absolute Neuts (auto) 12.5 H Absolute Lymphs (auto) 0.7 L Absolute Monos (auto) 0.5 Absolute Eos (auto) 0 Absolute Basos (auto) 0 Absolute Nucleated RBC 0.01 Nucleated RBC % 0.1 Sodium 137 Potassium 4.4 Chloride 99 L Carbon Dioxide 36 H Anion Gap 2 BUN 10 Creatinine 0.64 L Est GFR ( Amer) 166.4 Est GFR (Non-Af Amer) 129.4 BUN/Creatinine Ratio 15.6 Glucose 152 H POC Glucose (mg/dL) 148 H Calcium 9.4 Urine Color Urine Appearance Urine pH Ur Specific [place] Urine Protein Urine Ketones Urine Blood Urine Nitrate Urine Bilirubin Urine Urobilinogen Ur Leukocyte Esterase Urine Glucose Influenza A (Rapid) Influenza B (Rapid) 10/11/16 10/11/1617 11:10 12:13 17:47 WBC RBC Hgb Hct MCV MCH MCHC RDW Plt Count MPV Neut % (Auto) Lymph % (Auto) [place] % (Auto) Eos % (Auto) Baso % (Auto) Absolute Neuts (auto) Absolute Lymphs (auto) Absolute Monos (auto) Absolute Eos (auto) Absolute Basos (auto) Absolute Nucleated RBC Nucleated RBC % Sodium Potassium Chloride Carbon Dioxide Anion Gap BUN Creatinine Est GFR ( Amer) Est GFR (Non-Af Amer) BUN/Creatinine Ratio Glucose POC Glucose (mg/dL) 102 123 H Calcium Urine Color Straw Urine Appearance Clear Urine pH 5.0 Ur Specific [place] 1.006 L Urine Protein Negative Urine Ketones Negative Urine Blood Negative Urine Nitrate Negative Urine Bilirubin Negative Urine Urobilinogen Negative Ur Leukocyte Esterase Negative Urine Glucose Negative Influenza A (Rapid) Influenza B (Rapid) 10/11/16 10/12/16 10/12/16 21:19 06:40 07:58 WBC RBC Hgb Hct MCV MCH MCHC RDW Plt Count MPV Neut % (Auto) Lymph % (Auto) [place] % (Auto) Eos % (Auto) Baso % (Auto) Absolute Neuts (auto) Absolute Lymphs (auto) Absolute Monos (auto) Absolute Eos (auto) Absolute Basos (auto) Absolute Nucleated RBC Nucleated RBC % Sodium 139 Potassium 4.1 Chloride 102 Carbon Dioxide 35 H Anion Gap 2 BUN 14 Creatinine 0.66 L Est GFR ( Amer) 160.6 Est GFR (Non-Af Amer) 124.9 BUN/Creatinine Ratio 21.2 H Glucose 147 H POC Glucose (mg/dL) 120 H 147 H Calcium 9.1 Urine Color Urine Appearance Urine pH Ur Specific [place] Urine Protein Urine Ketones Urine Blood Urine Nitrate Urine Bilirubin Urine Urobilinogen Ur Leukocyte Esterase Urine Glucose Influenza A (Rapid) Influenza B (Rapid) 10/12/16 10/12/16 10/12/16 11:57 16:43 20:29 WBC RBC Hgb Hct MCV MCH MCHC RDW Plt Count MPV Neut % (Auto) Lymph % (Auto) [place] % (Auto) Eos % (Auto) Baso % (Auto) Absolute Neuts (auto) Absolute Lymphs (auto) Absolute Monos (auto) Absolute Eos (auto) Absolute Basos (auto) Absolute Nucleated RBC Nucleated RBC % Sodium Potassium Chloride Carbon Dioxide Anion Gap BUN Creatinine Est GFR ( Amer) Est GFR (Non-Af Amer) BUN/Creatinine Ratio Glucose POC Glucose (mg/dL) 105 101 151 H Calcium Urine Color Urine Appearance Urine pH Ur Specific [place] Urine Protein Urine Ketones Urine Blood Urine Nitrate Urine Bilirubin Urine Urobilinogen Ur Leukocyte Esterase Urine Glucose Influenza A (Rapid) Influenza B (Rapid) 10/13/16 08:00 WBC RBC Hgb Hct MCV MCH MCHC RDW Plt Count MPV Neut % (Auto) Lymph % (Auto) [place] % (Auto) Eos % (Auto) Baso % (Auto) Absolute Neuts (auto) Absolute Lymphs (auto) Absolute Monos (auto) Absolute Eos (auto) Absolute Basos (auto) Absolute Nucleated RBC Nucleated RBC % Sodium Potassium Chloride Carbon Dioxide Anion Gap BUN Creatinine Est GFR ( Amer) Est GFR (Non-Af Amer) BUN/Creatinine Ratio Glucose POC Glucose (mg/dL) 132 H Calcium Urine Color Urine Appearance Urine pH Ur Specific [place] Urine Protein Urine Ketones Urine Blood Urine Nitrate Urine Bilirubin Urine Urobilinogen Ur Leukocyte Esterase Urine Glucose Influenza A (Rapid) Influenza B (Rapid) Exam Insight and Judgement: Fair Plan - Treatment Plan Medications: Current Medications Atorvastatin Calcium (Lipitor*) 40 mg PO BEDTIME [facility] Last Admin: 10/12/16 21:10 Dose: 40 mg Famotidine (Pepcid Tab*) 20 mg PO BID [facility] Last Admin: 10/13/16 09:24 Dose: 20 mg Fluphenazine HCl (Prolixin Tab*) 5 mg PO BID [facility] Last Admin: 10/13/16 09:24 Dose: 5 mg Furosemide (Lasix Tab*) 20 mg PO DAILY [facility] Last Admin: 10/13/16 09:24 Dose: 20 mg Glipizide (Glucotrol Tab*) 5 mg PO 0800,1700 [facility] Last Admin: 10/13/16 09:24 Dose: 5 mg Insulin Human Lispro (Humalog*) 0 - 18 units SUBCUT [facility] PRN Reason: Protocol Last Admin: 10/13/16 11:32 Dose: Not Given Levothyroxine Sodium (Synthroid Tab*) 112 mcg PO DAILY@0600 [facility] Last Admin: 10/13/16 06:03 Dose: 112 mcg Lisinopril (Prinivil Tab*) 20 mg PO DAILY [facility] Last Admin: 10/13/16 09:25 Dose: 20 mg Nystatin (Nystatin Top Powder*) 1 applic TOPICAL BID [facility] Last Admin: 10/13/16 09:25 Dose: 1 apply Olanzapine (Zyprexa Tab*) 20 mg PO BEDTIME [facility] Last Admin: 10/12/16 21:11 Dose: 20 mg Pregabalin (Lyrica Cap(*)) 100 mg PO BID [facility] Last Admin: 10/13/16 09:24 Dose: 100 mg Rivaroxaban (Xarelto (*)) 20 mg PO DAILY [facility] Last Admin: 10/13/16 09:24 Dose: 20 mg
--- NOTE | 2016-10-13 12:51 | CONSULT ---
Identification - Patient Identification Reason for Psychiatric Consultation: Incapacitating Symptoms -: Patient is a 56 year old, M admitted on 10/10/16. - MHU Identification Employment Status: Disabled Hx Psychiatric Hospitalization: Yes History - Objective HPI: Andrea remains confused and unable to verbalize understanding of his situation. "I'm like these to things" he says, pointing his two pinkie fingers together. "I can't seem to connect." I was able to speak with Ramana Ponce RN, who is Kory 's RN and rifle case repairer at [facility]. Kory's last injection of monthly Invega Sustenna was on September 01, so he is due for a booster. The patient continues to present with confusion and disorientation. Lab Results: Laboratory Tests 10/10/16 10/10/16 10/10/16 16:14 17:31 20:57 WBC RBC Hgb Hct MCV MCH MCHC RDW Plt Count MPV Neut % (Auto) Lymph % (Auto) [place] % (Auto) Eos % (Auto) Baso % (Auto) Absolute Neuts (auto) Absolute Lymphs (auto) Absolute Monos (auto) Absolute Eos (auto) Absolute Basos (auto) Absolute Nucleated RBC Nucleated RBC % Sodium Potassium Chloride Carbon Dioxide Anion Gap BUN Creatinine Est GFR ( Amer) Est GFR (Non-Af Amer) BUN/Creatinine Ratio Glucose POC Glucose (mg/dL) 192 H 256 H Calcium Urine Color Urine Appearance Urine pH Ur Specific [place] Urine Protein Urine Ketones Urine Blood Urine Nitrate Urine Bilirubin Urine Urobilinogen Ur Leukocyte Esterase Urine Glucose Influenza A (Rapid) Negative Influenza B (Rapid) Negative 10/11/16 10/11/16 10/11/16 08:10 08:10 08:11 WBC 13.8 H RBC 4.94 Hgb 14.3 Hct 44 MCV 89 MCH 29 MCHC 32 RDW 15 Plt Count 198 MPV 8 Neut % (Auto) 90.6 H Lymph % (Auto) 5.2 L [place] % (Auto) 3.6 Eos % (Auto) 0.3 Baso % (Auto) 0.3 Absolute Neuts (auto) 12.5 H Absolute Lymphs (auto) 0.7 L Absolute Monos (auto) 0.5 Absolute Eos (auto) 0 Absolute Basos (auto) 0 Absolute Nucleated RBC 0.01 Nucleated RBC % 0.1 Sodium 137 Potassium 4.4 Chloride 99 L Carbon Dioxide 36 H Anion Gap 2 BUN 10 Creatinine 0.64 L Est GFR ( Amer) 166.4 Est GFR (Non-Af Amer) 129.4 BUN/Creatinine Ratio 15.6 Glucose 152 H POC Glucose (mg/dL) 148 H Calcium 9.4 Urine Color Urine Appearance Urine pH Ur Specific [place] Urine Protein Urine Ketones Urine Blood Urine Nitrate Urine Bilirubin Urine Urobilinogen Ur Leukocyte Esterase Urine Glucose Influenza A (Rapid) Influenza B (Rapid) 10/11/16 10/11/16 10/11/16 11:10 12:13 17:47 WBC RBC Hgb Hct MCV MCH MCHC RDW Plt Count MPV Neut % (Auto) Lymph % (Auto) [place] % (Auto) Eos % (Auto) Baso % (Auto) Absolute Neuts (auto) Absolute Lymphs (auto) Absolute Monos (auto) Absolute Eos (auto) Absolute Basos (auto) Absolute Nucleated RBC Nucleated RBC % Sodium Potassium Chloride Carbon Dioxide Anion Gap BUN Creatinine Est GFR ( Amer) Est GFR (Non-Af Amer) BUN/Creatinine Ratio Glucose POC Glucose (mg/dL) 102 123 H Calcium Urine Color Straw Urine Appearance Clear Urine pH 5.0 Ur Specific [place] 1.006 L Urine Protein Negative Urine Ketones Negative Urine Blood Negative Urine Nitrate Negative Urine Bilirubin Negative Urine Urobilinogen Negative Ur Leukocyte Esterase Negative Urine Glucose Negative Influenza A (Rapid) Influenza B (Rapid) 10/11/16 10/12/16 10/12/16 21:19 06:40 07:58 WBC RBC Hgb Hct MCV MCH MCHC RDW Plt Count MPV Neut % (Auto) Lymph % (Auto) [place] % (Auto) Eos % (Auto) Baso % (Auto) Absolute Neuts (auto) Absolute Lymphs (auto) Absolute Monos (auto) Absolute Eos (auto) Absolute Basos (auto) Absolute Nucleated RBC Nucleated RBC % Sodium 139 Potassium 4.1 Chloride 102 Carbon Dioxide 35 H Anion Gap 2 BUN 14 Creatinine 0.66 L Est GFR ( Amer) 160.6 Est GFR (Non-Af Amer) 124.9 BUN/Creatinine Ratio 21.2 H Glucose 147 H POC Glucose (mg/dL) 120 H 147 H Calcium 9.1 Urine Color Urine Appearance Urine pH Ur Specific [place] Urine Protein Urine Ketones Urine Blood Urine Nitrate Urine Bilirubin Urine Urobilinogen Ur Leukocyte Esterase Urine Glucose Influenza A (Rapid) Influenza B (Rapid) 10/12/16 10/12/16 10/12/16 11:57 16:43 20:29 WBC RBC Hgb Hct MCV MCH MCHC RDW Plt Count MPV Neut % (Auto) Lymph % (Auto) [place] % (Auto) Eos % (Auto) Baso % (Auto) Absolute Neuts (auto) Absolute Lymphs (auto) Absolute Monos (auto) Absolute Eos (auto) Absolute Basos (auto) Absolute Nucleated RBC Nucleated RBC % Sodium Potassium Chloride Carbon Dioxide Anion Gap BUN Creatinine Est GFR ( Amer) Est GFR (Non-Af Amer) BUN/Creatinine Ratio Glucose POC Glucose (mg/dL) 105 101 151 H Calcium Urine Color Urine Appearance Urine pH Ur Specific [place] Urine Protein Urine Ketones Urine Blood Urine Nitrate Urine Bilirubin Urine Urobilinogen Ur Leukocyte Esterase Urine Glucose Influenza A (Rapid) Influenza B (Rapid) 10/13/16 08:00 WBC RBC Hgb Hct MCV MCH MCHC RDW Plt Count MPV Neut % (Auto) Lymph % (Auto) [place] % (Auto) Eos % (Auto) Baso % (Auto) Absolute Neuts (auto) Absolute Lymphs (auto) Absolute Monos (auto) Absolute Eos (auto) Absolute Basos (auto) Absolute Nucleated RBC Nucleated RBC % Sodium Potassium Chloride Carbon Dioxide Anion Gap BUN Creatinine Est GFR ( Amer) Est GFR (Non-Af Amer) BUN/Creatinine Ratio Glucose POC Glucose (mg/dL) 132 H Calcium Urine Color Urine Appearance Urine pH Ur Specific [place] Urine Protein Urine Ketones Urine Blood Urine Nitrate Urine Bilirubin Urine Urobilinogen Ur Leukocyte Esterase Urine Glucose Influenza A (Rapid) Influenza B (Rapid) Exam Appearance: Obese Hygiene: Dirty Grooming: Disheveled Psychomotor Activities: Normal Exhibits Abnormal Movement: No Attitude and Relatedness: Psychotically Related Eye Contact: Poor - Speech Quality: Unpressured Latencies: Short Quantity: Appropriate Patient's Decription of Mood: "Fine" Observed Affect: Unvariable Affect Consistent with: Euthymia Patient's Thought Process: Disorganized, Loose Associations Thought Content: Yes Paranoid Ideation, No Passive Wish, No Suicidal Planning, No Homicidal Ideation Experiencing Hallucinations: No, Sensorium is Clear Type of Hallucinations: Visual: No, Auditory: No, Command: No Level of Consciousness: Alert Orientation: Yes Orientated to Person, No Intact, No Orientated to Time, No Orientated to Place Impulse Control: Poor Insight and Judgement: Impaired Impression - Impression Clinical Impression: 56 y.o. , disabled white male with a history of schizoaffective disorder presents for his third hospitalization at [facility] during the year of 2016 in the setting of pulmonary disease and confusion secondary to non-adherence with outpatient medication. He is supposed to be receiving intensive home- health services from [facility], but it is unclear how much support he is getting in the community. Inpatient DSM-IV Dx: Delirium, secondary to pulmonary disfunction Merits Inpatient Hospitalization: No Plan - Treatment Plan Treatment Plan: The patient has been placed on outpatient olanzapine dose, with fluphenazine 5mg PO BID added for encephalopathy. As per [facility], he is overdue for his monthly paliperidone Sustenna, which we will order at the 234mg dose. The patient does not seem capable, even with maximal outpatient nursing support, of living independently in the community and would be open to SNF placement. Psychiatry will continue to follow. Continued Medication Management: Different Medication Medications: Current Medications Atorvastatin Calcium (Lipitor*) 40 mg PO BEDTIME [facility] Last Admin: 10/12/16 21:10 Dose: 40 mg Famotidine (Pepcid Tab*) 20 mg PO BID [facility] Last Admin: 10/13/16 09:24 Dose: 20 mg Fluphenazine HCl (Prolixin Tab*) 5 mg PO BID [facility] Last Admin: 10/13/16 09:24 Dose: 5 mg Furosemide (Lasix Tab*) 20 mg PO DAILY [facility] Last Admin: 10/13/16 09:24 Dose: 20 mg Glipizide (Glucotrol Tab*) 5 mg PO 0800,1700 [facility] Last Admin: 10/13/16 09:24 Dose: 5 mg Insulin Human Lispro (Humalog*) 0 - 18 units SUBCUT ACHS [facility] PRN Reason: Protocol Last Admin: 10/13/16 11:32 Dose: Not Given Levothyroxine Sodium (Synthroid Tab*) 112 mcg PO DAILY@0600 [facility] Last Admin: 10/13/16 06:03 Dose: 112 mcg Lisinopril (Prinivil Tab*) 20 mg PO DAILY [facility] Last Admin: 10/13/16 09:25 Dose: 20 mg Nystatin (Nystatin Top Powder*) 1 applic TOPICAL BID [facility] Last Admin: 10/13/16 09:25 Dose: 1 apply Olanzapine (Zyprexa Tab*) 20 mg PO BEDTIME [facility] Last Admin: 10/12/16 21:11 Dose: 20 mg Pregabalin (Lyrica Cap(*)) 100 mg PO BID [facility] Last Admin: 10/13/16 09:24 Dose: 100 mg Rivaroxaban (Xarelto (*)) 20 mg PO DAILY [facility] Last Admin: 10/13/16 09:24 Dose: 20 mg
--- NOTE | 2016-10-13 16:42 | PN ---
Subjective Date of Service: 10/13/16 Interval History: Pt c/o feeling tired. no other complaints Objective Active Medications: Atorvastatin Calcium (Lipitor*) 40 mg PO BEDTIME [facility] Last Admin: 10/12/16 21:10 Dose: 40 mg Famotidine (Pepcid Tab*) 20 mg PO BID [facility] Last Admin: 10/13/16 09:24 Dose: 20 mg Fluphenazine HCl (Prolixin Tab*) 5 mg PO BID [facility] Last Admin: 10/13/16 09:24 Dose: 5 mg Furosemide (Lasix Tab*) 20 mg PO DAILY [facility] Last Admin: 10/13/16 09:24 Dose: 20 mg Glipizide (Glucotrol Tab*) 5 mg PO 0800,1700 [facility] Last Admin: 10/13/16 09:24 Dose: 5 mg Insulin Human Lispro (Humalog*) 0 - 18 units SUBCUT [facility] PRN Reason: Protocol Last Admin: 10/13/16 11:32 Dose: Not Given Levothyroxine Sodium (Synthroid Tab*) 112 mcg PO DAILY@0600 [facility] Last Admin: 10/13/16 06:03 Dose: 112 mcg Lisinopril (Prinivil Tab*) 20 mg PO DAILY [facility] Last Admin: 10/13/16 09:25 Dose: 20 mg Nystatin (Nystatin Top Powder*) 1 applic TOPICAL BID [facility] Last Admin: 10/13/16 09:25 Dose: 1 apply Olanzapine (Zyprexa Tab*) 20 mg PO BEDTIME [facility] Last Admin: 10/12/16 21:11 Dose: 20 mg Pregabalin (Lyrica Cap(*)) 100 mg PO BID [facility] Last Admin: 10/13/16 09:24 Dose: 100 mg Rivaroxaban (Xarelto (*)) 20 mg PO DAILY [facility] Last Admin: 10/13/16 09:24 Dose: 20 mg Vital Signs 10/12/16 10/12/16 10/12/16 19:15 20:00 21:11 Temperature 99.2 F Pulse Rate 78 Respiratory 16 18 18 Rate Blood Pressure 128/50 (mmHg) O2 Sat by Pulse 94 Oximetry 10/12/16 10/12/16 10/13/16 23:11 23:26 03:22 Temperature 98.2 F 98.6 F Pulse Rate 67 81 Respiratory 14 18 18 Rate Blood Pressure 111/50 136/68 (mmHg) O2 Sat by Pulse 95 99 Oximetry 10/13/16 10/13/16 10/13/16 07:46 08:00 08:05 Temperature 98.7 F Pulse Rate 58 69 Respiratory 16 16 18 Rate Blood Pressure 156/60 (mmHg) O2 Sat by Pulse 100 96 Oximetry 10/13/16 10/13/16 10/13/16 09:24 11:24 11:39 Temperature 98.9 F Pulse Rate 72 Respiratory 16 16 16 Rate Blood Pressure 140/76 (mmHg) O2 Sat by Pulse 98 Oximetry Oxygen Devices in Use Now: Nasal Cannula - at 3 L Appearance: 56 yo M in nAD, AAOx2, poor historian , withdrawn affect Eyes: No Scleral Icterus, PERRLA Ears/Nose/Mouth/Throat: NL Teeth, Lips, Gums, Mucous Membranes Moist Neck: NL Appearance and Movements; NL JVP, Trachea Midline Respiratory: Symmetrical Chest Expansion and Respiratory Effort, Clear to Auscultation Cardiovascular: NL Sounds; No Murmurs; No JVD, RRR Abdominal: NL Sounds; No Tenderness; No Distention Lymphatic: No Cervical Adenopathy Extremities: No Clubbing, Cyanosis, - - trace b/l pedal edema Skin: No Rash or Ulcers, No Nodules or Sclerosis Neurological: NL Muscle Strength and Tone Result Diagrams: 10/11/16 08:10 10/12/16 06:40 Additional Lab and Data: Lab Results 10/10/16 Range/Units 11:35 WBC 7.3 (3.5-10.8) 10^3/ul RBC 4.56 (4.0-5.4) 10^6/ul Hgb 13.2 L (14.0-18.0) g/dl Hct 41 L (42-52) % MCV 89 (80-94) fL MCH 29 (27-31) pg MCHC 33 (31-36) g/dl RDW 15 (10.5-15) % Plt Count 184 (150-450) 10^3/ul MPV 7 L (7.4-10.4) um3 Neut % (Auto) 76.3 (38-83) % Lymph % (Auto) 14.7 L (25-47) % [place] % (Auto) 4.9 (1-9) % Eos % (Auto) 2.4 (0-6) % Baso % (Auto) 1.7 (0-2) % Absolute Neuts (auto) 5.6 (1.5-7.7) 10^3/ul Absolute Lymphs (auto) 1.1 (1.0-4.8) 10^3/ul Absolute Monos (auto) 0.4 (0-0.8) 10^3/ul Absolute Eos (auto) 0.2 (0-0.6) 10^3/ul Absolute Basos (auto) 0.1 (0-0.2) 10^3/ul Absolute Nucleated RBC 0 10^3/ul Nucleated RBC % 0 Microbiology and Other Data: Microbiology 10/10/16 16:00 Aerobic Blood Culture - Preliminary Blood Venous No Growth Day 2 Anaerobic Blood Culture - Preliminary No Growth Day 2 Blood Culture - Final 10/10/16 16:20 Aerobic Blood Culture - Preliminary Blood Venous No Growth Day 2 Anaerobic Blood Culture - Preliminary No Growth Day 2 Blood Culture - Final 10/10/16 17:00 Nasal Screen MRSA (PCR)([facility]) - Final Nasal Mrsa Positive 10/10/16 17:00 Influenza Types A,B Antigen ([facility]) - Final Nasal Specimen received for Influenza A/B Molecular testing Assess/Plan/Problems-Billing Assessment: 56 yo M with h/o schizophrenia, obesity, chronic 02 use at 2 L, HTN. DVT/PE presents with acute hypercapnic respiratory failure - Patient Problems (1) Acute hypercapnic respiratory failure Comment: due to obesity /hypoventilation syndrome, suspect also noncompliance with 02 use. Off BIPAP, now at 3 L NC. (baseline on 2 L) Medroxyprogesterone d/c'd due to h/o DVT /PE (2) Schizo affective schizophrenia Comment: Continue fluphenazine, olanzapine, and Invega as per psychiatry consult As per psychiatry pt is unable to live independently (3) DM type 2 (diabetes mellitus, type 2) Comment: continue glipizide and ISS. (4) Pulmonary embolism Comment: Remote Continue Xarelto at 20 mg daily. (5) HTN (hypertension) Comment: Continue lisinopril and furosemide , controlled (6) DVT prophylaxis Comment: Xarelto (7) Hypothyroidism Comment: TSH wnl 07/19/16. cont synthroid Status and Disposition: Inpatient, as per psychiatry consult pt is unable to live independently. SW/CM consults ongoing
--- NOTE | 2016-10-13 18:39 | ED ---
Ilan Costello Billy, scribed for Derick Flores MD on 10/10/16 at 1151 . Complex/Multi-Sys Presentation - HPI Summary HPI Summary: Patient is a 56 year-old male BIBA to [facility] for evaluation of shortness of breath today. He also complains of confusion, diffuse aches, fevers, chills, sweating. He also reports intermittent sternal chest pain. He is a heavy smoker. - History Of Current Complaint Chief Complaint: EDShortnessOfBreath Time Seen by Provider: 10/10/16 10:26 Hx Obtained From: Patient Onset/Duration: Gradual Onset Timing: Constant Severity Currently: Moderate Severity Initially: Moderate Location: Pain At: - sternal chest pressure Aggravating Factor(s): none Alleviating Factor(s): none Associated Signs And Symptoms: Positive: Confusion, SOB, Chest Pain, Fever, Diaphoresis, Other - chills, myalgias - Allergies/Home Medications Allergies/Adverse Reactions: Allergies Allergy/AdvReac Type Severity Reaction Status Date / Time Fish Allergy Allergy Unknown Verified 07/29/16 17:09 Reaction Details Haloperidol [From Haldol] Allergy Unknown Verified 07/29/16 17:09 Reaction Details PMH/Surg Hx/FS Hx/Imm Hx Endocrine/Hematology History: Reports: Hx Diabetes, Hx Thyroid Disease - hypo Cardiovascular History: Reports: Hx Embolism, Hx Hypercholesterolemia, Hx Hypertension Denies: Hx Pacemaker/ICD, Other Cardiovascular Problems/Disorders Respiratory History: Reports: Hx Asthma, Hx Chronic Obstructive Pulmonary Disease (COPD) - CPAP used in the past, O2 use at night, Hx Pneumonia, Other Respiratory Problems/Disorders - COPD, asthma GI History: Denies: Other GI Disorders History: Reports: Hx Kidney Stones - 18 YRS AGO, Other Problems/Disorders - kidney stones Musculoskeletal History: Reports: Hx Arthritis - BACK, Other Musculoskeletal History - chronis back pain Sensory History: Reports: Hx Cataracts - PRITI, Hx Vision Problem - GLASSES Denies: Hx Hearing Aid Opthamlomology History: Reports: Hx Cataracts - PRITI, Hx Vision Problem - GLASSES Neurological History: Denies: Other Neuro Impairments/Disorders Psychiatric History: Reports: Hx Anxiety - ON MEDS, Hx Depression - MEDS, Hx Community Mental Health Tx, Hx Schizophrenia Denies: Hx Eating Disorder, Hx Panic Disorder, Hx of Violent Episodes Against Others - Surgical History Surgery Procedure, Year, and Place: Right eye cataract surgery Hx Anesthesia Reactions: No Infectious Disease History: Denies: Traveled Outside the [place] in Last 30 Days - Family History Known Family History: Positive: Diabetes - Father, Other - negative hyperthermia , negative adverse reaction to anesthesia - Social History Alcohol Use: None Alcohol Amount: 12 beers a week Hx Substance Use: No Substance Use Type: Reports: None Substance Use Comment - Amount & Last Used: history marijuana and street drug use Hx Tobacco Use: Yes Smoking Status (MU): Heavy Every Day Tobacco Smoker Type: Cigarettes Amount Used/How Often: 2PPD, then 1PPD prior to admission which was less than 30 days ago Length of Time of Smoking/Using Tobacco: 30 years + Have You Smoked in the Last Year: Yes Review of Systems Positive: Fever, Chills, Skin Diaphoresis Negative: Erythema Negative: Sore Throat Positive: Chest Pain Positive: Shortness Of Breath Negative: Abdominal Pain, Vomiting, Nausea Negative: dysuria, hematuria Positive: Myalgia. Negative: Edema Negative: Rash Neurological: Other - confusion All Other Systems Reviewed And Are Negative: Yes Physical Exam - Summary Physical Exam Summary: Constitutional: Well-developed, Well-nourished, Alert. Morbidly obese. (-) Distressed Skin: Warm, Dry HENT: Normocephalic; Atraumatic Eyes: Conjunctiva normal Neck: Musculoskeletal ROM normal neck. (-) JVD, (-) Stridor, (-) Tracheal deviation Cardio: Rhythm regular, rate normal, Heart sounds normal; Intact distal pulses; The pedal pulses are 2+ and symmetric. Radial pulses are 2+ and symmetric. (-) Murmur Pulmonary/Chest wall: Lung exam limited by body habitus. Abd: Soft, (-) Tenderness, (-) Distension, (-) Guarding, (-) Rebound Musculoskeletal: (-) Edema Lymph: (-) Cervical adenopathy Neuro: Alert, Oriented x3. Drowsy. Psych: Mood and affect Normal Triage Information Reviewed: Yes Vital Signs On Initial Exam: Initial Vitals Temp Pulse Resp BP Pulse Ox 98.7 F 91 22 124/66 87 10/10/16 10:02 10/10/16 10:02 10/10/16 10:02 10/10/16 10:02 10/10/16 10:02 Vital Signs Reviewed: Yes - [place] Coma Scale Coma Scale Total: 15 Diagnostics - Vital Signs Vital Signs Temp Pulse Resp BP Pulse Ox 10/10/16 11:30 81 123/64 94 10/10/16 11:00 84 109/65 88 10/10/16 10:30 92 16 116/63 87 10/10/16 10:20 98.7 F 88 22 124/66 87 10/10/16 10:17 93 86 10/10/16 10:16 124/66 10/10/16 10:02 98.7 F 91 22 124/66 87 - Laboratory Lab Results: Lab Results 10/10/16 Range/Units 11:35 WBC 7.3 (3.5-10.8) 10^3/ul RBC 4.56 (4.0-5.4) 10^6/ul Hgb 13.2 L (14.0-18.0) g/dl Hct 41 L (42-52) % MCV 89 (80-94) fL MCH 29 (27-31) pg MCHC 33 (31-36) g/dl RDW 15 (10.5-15) % Plt Count 184 (150-450) 10^3/ul MPV 7 L (7.4-10.4) um3 Neut % (Auto) 76.3 (38-83) % Lymph % (Auto) 14.7 L (25-47) % [place] % (Auto) 4.9 (1-9) % Eos % (Auto) 2.4 (0-6) % Baso % (Auto) 1.7 (0-2) % Absolute Neuts (auto) 5.6 (1.5-7.7) 10^3/ul Absolute Lymphs (auto) 1.1 (1.0-4.8) 10^3/ul Absolute Monos (auto) 0.4 (0-0.8) 10^3/ul Absolute Eos (auto) 0.2 (0-0.6) 10^3/ul Absolute Basos (auto) 0.1 (0-0.2) 10^3/ul Absolute Nucleated RBC 0 10^3/ul Nucleated RBC % 0 Result Diagrams: 10/10/16 11:35 10/10/16 11:35 Lab Statement: Any lab studies that have been ordered have been reviewed, and results considered in the medical decision making process. - Radiology CXR Radiology Interpretation Completed By: Radiologist - 1. PATCHY AIRSPACE DISEASE OF THE LEFT LUNG BASE. 2. PULMONARY VASCULAR CONGESTION - EKG 1006 EKG Interpretation: NSR 92 bpm, T-wave flattening in V1 V2, no STEMI Complex Multi-Symp Course/Dx Assessment/Plan: Patient is a 56 year-old male coming to the ED for evaluation of SOB, chest pain, and confusion. EKG shows NSR 92 bpm, T-wave flattening in V1 V2, no STEMI. ABG shows pCO2 of 73. CXR shows patchy airspace disease of the left lung base and pulmonary vascular congestion. As such, we are not administering sepsis level fluids due to pulmonary vascular congestion. Patient care discussed with Dr. Zapata, who will see the patient in the ED. - Diagnoses Provider Diagnoses: CO2 narcosis, Delirium, Acute respiratory failure, Hypercarbia, Pulmonary edema , Community acquired pneumonia - Physician Notifications Discussed Care Of Patient With: Dr. Silvestre Zapata (parent trainer) at 1225: will see patient in the ED. Discharge - Discharge Plan Condition: Stable Disposition: ADMITTED TO [facility] Referrals: Chris Loyola MD [Primary Care Provider] - The documentation as recorded by the Ilan lynne Billy accurately reflects the service I personally performed and the decisions made by , Derick Flores MD.
[2016-10-13] MEDS: Atorvastatin* 10 MG TAB PO SCH (21:07)
[2016-10-13] MEDS: OLANzapine TAB* 10 MG PO SCH (21:08)
[2016-10-14] MEDS: Levothyroxine TAB* 112 MCG TAB PO SCH (06:02)
[2016-10-14] MEDS: Pregabalin CAP(*) 100 MG PO SCH ×2 (07:52→20:22)
[2016-10-14] MEDS: glipiZIDE TAB* 5 MG PO SCH ×2 (07:52→16:56)
[2016-10-14] MEDS: Lisinopril TAB* 10 MG PO SCH (07:52)
[2016-10-14] MEDS: Furosemide TAB* 20 MG PO SCH (07:53)
[2016-10-14] MEDS: Famotidine TAB* 20 MG PO SCH ×2 (07:53→20:23)
[2016-10-14] MEDS: fluPHENAZine HCL TAB* 5 MG PO SCH ×2 (07:53→20:20)
[2016-10-14] MEDS: Rivaroxaban TAB(*) 20 MG TAB PO SCH (07:53)
[2016-10-14] MEDS: Nystatin TOP POWDER* 15 GM BTL TOPICAL SCH ×2 (07:53→20:34)
[2016-10-14] MEDS: Insulin LISPRO* 1 UNITS UNIT SUBCUT SCH ×4 (09:00→21:16)
--- NOTE | 2016-10-14 13:26 | PN ---
Subjective Date of Service: 10/14/16 Interval History: Pt feels better today. no new complaints. Objective Active Medications: Atorvastatin Calcium (Lipitor*) 40 mg PO BEDTIME [facility] Last Admin: 10/13/16 21:07 Dose: 40 mg Famotidine (Pepcid Tab*) 20 mg PO BID [facility] Last Admin: 10/14/16 07:53 Dose: 20 mg Fluphenazine HCl (Prolixin Tab*) 5 mg PO BID [facility] Last Admin: 10/14/16 07:53 Dose: 5 mg Furosemide (Lasix Tab*) 20 mg PO DAILY [facility] Last Admin: 10/14/16 07:53 Dose: 20 mg Glipizide (Glucotrol Tab*) 5 mg PO 0800,1700 [facility] Last Admin: 10/14/16 07:52 Dose: 5 mg Insulin Human Lispro (Humalog*) 0 - 18 units SUBCUT [facility] PRN Reason: Protocol Last Admin: 10/14/16 12:17 Dose: Not Given Levothyroxine Sodium (Synthroid Tab*) 112 mcg PO DAILY@0600 [facility] Last Admin: 10/14/16 06:02 Dose: 112 mcg Lisinopril (Prinivil Tab*) 20 mg PO DAILY [facility] Last Admin: 10/14/16 07:52 Dose: 20 mg Nystatin (Nystatin Top Powder*) 1 applic TOPICAL BID [facility] Last Admin: 10/14/16 07:53 Dose: 1 apply Olanzapine (Zyprexa Tab*) 20 mg PO BEDTIME [facility] Last Admin: 10/13/16 21:08 Dose: 20 mg Pregabalin (Lyrica Cap(*)) 100 mg PO BID [facility] Last Admin: 10/14/16 07:52 Dose: 100 mg Rivaroxaban (Xarelto (*)) 20 mg PO DAILY [facility] Last Admin: 10/14/16 07:53 Dose: 20 mg Vital Signs 10/13/16 10/13/16 10/13/16 15:41 20:00 20:10 Temperature 98.2 F 98.4 F Pulse Rate 68 71 Respiratory 16 16 16 Rate Blood Pressure 129/56 124/63 (mmHg) O2 Sat by Pulse 97 94 Oximetry 10/13/16 10/13/16 10/13/16 21:07 23:07 23:21 Temperature 97.6 F Pulse Rate 73 Respiratory 16 15 16 Rate Blood Pressure 132/70 (mmHg) O2 Sat by Pulse 97 Oximetry 10/14/16 10/14/16 10/14/16 05:31 07:45 07:52 Temperature 98.2 F 99.0 F Pulse Rate 70 65 Respiratory 16 16 16 Rate Blood Pressure 127/59 147/66 (mmHg) O2 Sat by Pulse 100 99 Oximetry 10/14/16 10/14/16 10/14/16 08:00 09:52 11:53 Temperature 98.7 F Pulse Rate 75 Respiratory 16 18 16 Rate Blood Pressure 100/46 (mmHg) O2 Sat by Pulse 94 Oximetry Oxygen Devices in Use Now: Nasal Cannula - at 2 L Appearance: 56 yo M in nAd, AAOx3, poor historian Eyes: No Scleral Icterus, PERRLA Ears/Nose/Mouth/Throat: NL Teeth, Lips, Gums, Mucous Membranes Moist Neck: NL Appearance and Movements; NL JVP, Trachea Midline Respiratory: Symmetrical Chest Expansion and Respiratory Effort, Clear to Auscultation Cardiovascular: NL Sounds; No Murmurs; No JVD, RRR Abdominal: NL Sounds; No Tenderness; No Distention Lymphatic: No Cervical Adenopathy Extremities: No Clubbing, Cyanosis, - - trace pedal edema b/l Skin: No Rash or Ulcers, No Nodules or Sclerosis Neurological: Alert and Oriented x 3, NL Muscle Strength and Tone Result Diagrams: 10/11/16 08:10 10/12/16 06:40 Additional Lab and Data: Lab Results 10/10/16 Range/Units 11:35 WBC 7.3 (3.5-10.8) 10^3/ul RBC 4.56 (4.0-5.4) 10^6/ul Hgb 13.2 L (14.0-18.0) g/dl Hct 41 L (42-52) % MCV 89 (80-94) fL MCH 29 (27-31) pg MCHC 33 (31-36) g/dl RDW 15 (10.5-15) % Plt Count 184 (150-450) 10^3/ul MPV 7 L (7.4-10.4) um3 Neut % (Auto) 76.3 (38-83) % Lymph % (Auto) 14.7 L (25-47) % [place] % (Auto) 4.9 (1-9) % Eos % (Auto) 2.4 (0-6) % Baso % (Auto) 1.7 (0-2) % Absolute Neuts (auto) 5.6 (1.5-7.7) 10^3/ul Absolute Lymphs (auto) 1.1 (1.0-4.8) 10^3/ul Absolute Monos (auto) 0.4 (0-0.8) 10^3/ul Absolute Eos (auto) 0.2 (0-0.6) 10^3/ul Absolute Basos (auto) 0.1 (0-0.2) 10^3/ul Absolute Nucleated RBC 0 10^3/ul Nucleated RBC % 0 Microbiology and Other Data: Microbiology 10/10/16 16:00 Aerobic Blood Culture - Preliminary Blood Venous No Growth Day 2 Anaerobic Blood Culture - Preliminary No Growth Day 2 Blood Culture - Final 10/10/16 16:20 Aerobic Blood Culture - Preliminary Blood Venous No Growth Day 2 Anaerobic Blood Culture - Preliminary No Growth Day 2 Blood Culture - Final 10/10/16 17:00 Nasal Screen MRSA (PCR)([facility]) - Final Nasal Mrsa Positive 10/10/16 17:00 Influenza Types A,B Antigen ([facility]) - Final Nasal Specimen received for Influenza A/B Molecular testing Assess/Plan/Problems-Billing Assessment: 56 yo M with h/o schizophrenia, obesity, chronic 02 use at 2 L, HTN. DVT/PE presents with acute hypercapnic respiratory failure - Patient Problems (1) Acute hypercapnic respiratory failure Comment: due to obesity /hypoventilation syndrome, suspect also noncompliance with 02 use. Off BIPAP, now abc to his baseline baseline on 2 L (2) Schizo affective schizophrenia Comment: Continue fluphenazine, olanzapine, and Invega as per psychiatry consult As per psychiatry pt is unable to live independently (3) DM type 2 (diabetes mellitus, type 2) Comment: continue glipizide and ISS. (4) Pulmonary embolism Comment: Remote Continue Xarelto at 20 mg daily. (5) HTN (hypertension) Comment: Continue lisinopril and furosemide , controlled (6) DVT prophylaxis Comment: Xarelto (7) Hypothyroidism Comment: TSH wnl 07/19/16. cont synthroid Status and Disposition: Inpatient, as per psychiatry consult pt is unable to live independently. SW/CM consults ongoing Medically ready for discharge
[2016-10-14] MEDS: Atorvastatin* 10 MG TAB PO SCH (20:21)
[2016-10-14] MEDS: OLANzapine TAB* 10 MG PO SCH (20:23)
[2016-10-15] MEDS: Levothyroxine TAB* 112 MCG TAB PO SCH (05:27)
[2016-10-15] MEDS: Famotidine TAB* 20 MG PO SCH ×2 (08:36→21:12)
[2016-10-15] MEDS: Rivaroxaban TAB(*) 20 MG TAB PO SCH (08:36)
[2016-10-15] MEDS: glipiZIDE TAB* 5 MG PO SCH ×2 (08:36→17:30)
[2016-10-15] MEDS: Nystatin TOP POWDER* 15 GM BTL TOPICAL SCH ×2 (08:36→21:13)
[2016-10-15] MEDS: Furosemide TAB* 20 MG PO SCH (08:36)
[2016-10-15] MEDS: fluPHENAZine HCL TAB* 5 MG PO SCH ×2 (08:37→21:12)
[2016-10-15] MEDS: Pregabalin CAP(*) 100 MG PO SCH ×2 (08:37→21:14)
[2016-10-15] MEDS: Lisinopril TAB* 10 MG PO SCH (08:37)
[2016-10-15] MEDS: Insulin LISPRO* 1 UNITS UNIT SUBCUT SCH ×4 (08:38→21:13)
--- NOTE | 2016-10-15 12:02 | CONSULT ---
Identification - Patient Identification Reason for Psychiatric Consultation: Incapacitating Symptoms -: Patient is a 56 year old, M admitted on 10/10/16. He was seen today on follow-up , under direction of Dr. Dania Pollard - [facility] [place] Identification Hx Psychiatric Hospitalization: Yes History - Objective HPI: Psychiatry has been in on consult and today, follow-up visit was made. Staff report that patient continues to demonstrate confusion. Staff also raised concerns about hypotension. Today, Mr. Mccallum stated that he feels "mixed up" and reports that he feels "like a flower that is wilting." He is currently denying anxiety symptoms. Lab Results: Laboratory Tests 10/10/16 10/10/16 10/10/16 16:14 17:31 20:57 WBC RBC Hgb Hct MCV MCH MCHC RDW Plt Count MPV Neut % (Auto) Lymph % (Auto) [place] % (Auto) Eos % (Auto) Baso % (Auto) Absolute Neuts (auto) Absolute Lymphs (auto) Absolute Monos (auto) Absolute Eos (auto) Absolute Basos (auto) Absolute Nucleated RBC Nucleated RBC % Sodium Potassium Chloride Carbon Dioxide Anion Gap BUN Creatinine Est GFR ( Amer) Est GFR (Non-Af Amer) BUN/Creatinine Ratio Glucose POC Glucose (mg/dL) 192 H 256 H Calcium Urine Color Urine Appearance Urine pH Ur Specific [place] Urine Protein Urine Ketones Urine Blood Urine Nitrate Urine Bilirubin Urine Urobilinogen Ur Leukocyte Esterase Urine Glucose Influenza A (Rapid) Negative Influenza B (Rapid) Negative 10/11/16 10/11/16 10/11/16 08:10 08:10 08:11 WBC 13.8 H RBC 4.94 Hgb 14.3 Hct 44 MCV 89 MCH 29 MCHC 32 RDW 15 Plt Count 198 MPV 8 Neut % (Auto) 90.6 H Lymph % (Auto) 5.2 L [place] % (Auto) 3.6 Eos % (Auto) 0.3 Baso % (Auto) 0.3 Absolute Neuts (auto) 12.5 H Absolute Lymphs (auto) 0.7 L Absolute Monos (auto) 0.5 Absolute Eos (auto) 0 Absolute Basos (auto) 0 Absolute Nucleated RBC 0.01 Nucleated RBC % 0.1 Sodium 137 Potassium 4.4 Chloride 99 L Carbon Dioxide 36 H Anion Gap 2 BUN 10 Creatinine 0.64 L Est GFR ( Amer) 166.4 Est GFR (Non-Af Amer) 129.4 BUN/Creatinine Ratio 15.6 Glucose 152 H POC Glucose (mg/dL) 148 H Calcium 9.4 Urine Color Urine Appearance Urine pH Ur Specific [place] Urine Protein Urine Ketones Urine Blood Urine Nitrate Urine Bilirubin Urine Urobilinogen Ur Leukocyte Esterase Urine Glucose Influenza A (Rapid) Influenza B (Rapid) 10/11/16 10/11/16 10/11/16 11:10 12:13 17:47 WBC RBC Hgb Hct MCV MCH MCHC RDW Plt Count MPV Neut % (Auto) Lymph % (Auto) [place] % (Auto) Eos % (Auto) Baso % (Auto) Absolute Neuts (auto) Absolute Lymphs (auto) Absolute Monos (auto) Absolute Eos (auto) Absolute Basos (auto) Absolute Nucleated RBC Nucleated RBC % Sodium Potassium Chloride Carbon Dioxide Anion Gap BUN Creatinine Est GFR ( Amer) Est GFR (Non-Af Amer) BUN/Creatinine Ratio Glucose POC Glucose (mg/dL) 102 123 H Calcium Urine Color Straw Urine Appearance Clear Urine pH 5.0 Ur Specific [place] 1.006 L Urine Protein Negative Urine Ketones Negative Urine Blood Negative Urine Nitrate Negative Urine Bilirubin Negative Urine Urobilinogen Negative Ur Leukocyte Esterase Negative Urine Glucose Negative Influenza A (Rapid) Influenza B (Rapid) 10/11/16 10/12/16 10/12/16 21:19 06:40 07:58 WBC RBC Hgb Hct MCV MCH MCHC RDW Plt Count MPV Neut % (Auto) Lymph % (Auto) [place] % (Auto) Eos % (Auto) Baso % (Auto) Absolute Neuts (auto) Absolute Lymphs (auto) Absolute Monos (auto) Absolute Eos (auto) Absolute Basos (auto) Absolute Nucleated RBC Nucleated RBC % Sodium 139 Potassium 4.1 Chloride 102 Carbon Dioxide 35 H Anion Gap 2 BUN 14 Creatinine 0.66 L Est GFR ( Amer) 160.6 Est GFR (Non-Af Amer) 124.9 BUN/Creatinine Ratio 21.2 H Glucose 147 H POC Glucose (mg/dL) 120 H 147 H Calcium 9.1 Urine Color Urine Appearance Urine pH Ur Specific [place] Urine Protein Urine Ketones Urine Blood Urine Nitrate Urine Bilirubin Urine Urobilinogen Ur Leukocyte Esterase Urine Glucose Influenza A (Rapid) Influenza B (Rapid) 10/12/16 10/12/16 10/12/16 11:57 16:43 20:29 WBC RBC Hgb Hct MCV MCH MCHC RDW Plt Count MPV Neut % (Auto) Lymph % (Auto) [place] % (Auto) Eos % (Auto) Baso % (Auto) Absolute Neuts (auto) Absolute Lymphs (auto) Absolute Monos (auto) Absolute Eos (auto) Absolute Basos (auto) Absolute Nucleated RBC Nucleated RBC % Sodium Potassium Chloride Carbon Dioxide Anion Gap BUN Creatinine Est GFR ( Amer) Est GFR (Non-Af Amer) BUN/Creatinine Ratio Glucose POC Glucose (mg/dL) 105 101 151 H Calcium Urine Color Urine Appearance Urine pH Ur Specific [place] Urine Protein Urine Ketones Urine Blood Urine Nitrate Urine Bilirubin Urine Urobilinogen Ur Leukocyte Esterase Urine Glucose Influenza A (Rapid) Influenza B (Rapid) 10/13/16 10/13/16 10/13/16 08:00 11:31 16:50 WBC RBC Hgb Hct MCV MCH MCHC RDW Plt Count MPV Neut % (Auto) Lymph % (Auto) [place] % (Auto) Eos % (Auto) Baso % (Auto) Absolute Neuts (auto) Absolute Lymphs (auto) Absolute Monos (auto) Absolute Eos (auto) Absolute Basos (auto) Absolute Nucleated RBC Nucleated RBC % Sodium Potassium Chloride Carbon Dioxide Anion Gap BUN Creatinine Est GFR ( Amer) Est GFR (Non-Af Amer) BUN/Creatinine Ratio Glucose POC Glucose (mg/dL) 132 H 79 111 H Calcium Urine Color Urine Appearance Urine pH Ur Specific [place] Urine Protein Urine Ketones Urine Blood Urine Nitrate Urine Bilirubin Urine Urobilinogen Ur Leukocyte Esterase Urine Glucose Influenza A (Rapid) Influenza B (Rapid) 10/13/16 10/14/16 10/14/16 20:31 07:52 12:13 WBC RBC Hgb Hct MCV MCH MCHC RDW Plt Count MPV Neut % (Auto) Lymph % (Auto) [place] % (Auto) Eos % (Auto) Baso % (Auto) Absolute Neuts (auto) Absolute Lymphs (auto) Absolute Monos (auto) Absolute Eos (auto) Absolute Basos (auto) Absolute Nucleated RBC Nucleated RBC % Sodium Potassium Chloride Carbon Dioxide Anion Gap BUN Creatinine Est GFR ( Amer) Est GFR (Non-Af Amer) BUN/Creatinine Ratio Glucose POC Glucose (mg/dL) 137 H 134 H 91 Calcium Urine Color Urine Appearance Urine pH Ur Specific [place] Urine Protein Urine Ketones Urine Blood Urine Nitrate Urine Bilirubin Urine Urobilinogen Ur Leukocyte Esterase Urine Glucose Influenza A (Rapid) Influenza B (Rapid) 10/14/16 10/14/16 10/15/16 16:58 21:11 08:00 WBC RBC Hgb Hct MCV MCH MCHC RDW Plt Count MPV Neut % (Auto) Lymph % (Auto) [place] % (Auto) Eos % (Auto) Baso % (Auto) Absolute Neuts (auto) Absolute Lymphs (auto) Absolute Monos (auto) Absolute Eos (auto) Absolute Basos (auto) Absolute Nucleated RBC Nucleated RBC % Sodium Potassium Chloride Carbon Dioxide Anion Gap BUN Creatinine Est GFR ( Amer) Est GFR (Non-Af Amer) BUN/Creatinine Ratio Glucose POC Glucose (mg/dL) 143 H 143 H 164 H Calcium Urine Color Urine Appearance Urine pH Ur Specific [place] Urine Protein Urine Ketones Urine Blood Urine Nitrate Urine Bilirubin Urine Urobilinogen Ur Leukocyte Esterase Urine Glucose Influenza A (Rapid) Influenza B (Rapid) Exam Appearance: Obese Hygiene: Dirty Grooming: Disheveled Psychomotor Activities: Normal Exhibits Abnormal Movement: No Attitude and Relatedness: Psychotically Related Eye Contact: Poor - Speech Quality: Unpressured Latencies: Short Quantity: Appropriate Patient's Decription of Mood: "I don't know." Observed Affect: Unvariable Affect Consistent with: Euthymia Patient's Thought Process: Disorganized, Loose Associations Thought Content: Yes Paranoid Ideation, No Passive Wish, No Suicidal Planning, No Homicidal Ideation Experiencing Hallucinations: No, Sensorium is Clear Type of Hallucinations: Visual: No - denies, Auditory: No - denies, Command: No - denies Level of Consciousness: Alert Orientation: Yes Orientated to Person, No Intact, No Orientated to Time, No Orientated to Place Impulse Control: Poor Insight and Judgement: Impaired Impression - Impression Clinical Impression: The patient has is continuing to receive olanzapine dose. Fluphenazine was decreased to 2.5 mg po BID due to hypotension and patient's complaints of feeling "faint" during ambulation. Spoke with Dr. Degroot regarding case as well as recommendations approved by Dr. Pollard. Psychiatry will continue to follow. Plan - Treatment Plan Medications: Current Medications Atorvastatin Calcium (Lipitor*) 40 mg PO BEDTIME [facility] Last Admin: 10/14/16 20:21 Dose: 40 mg Famotidine (Pepcid Tab*) 20 mg PO BID [facility] Last Admin: 10/15/16 08:36 Dose: 20 mg Fluphenazine HCl (Prolixin Tab*) 5 mg PO BID [facility] Last Admin: 10/15/16 08:37 Dose: 5 mg Furosemide (Lasix Tab*) 20 mg PO DAILY [facility] Last Admin: 10/15/16 08:36 Dose: 20 mg Glipizide (Glucotrol Tab*) 5 mg PO 0800,1700 [facility] Last Admin: 10/15/16 08:36 Dose: 5 mg Insulin Human Lispro (Humalog*) 0 - 18 units SUBCUT [facility] PRN Reason: Protocol Last Admin: 10/15/16 08:38 Dose: 3 units Levothyroxine Sodium (Synthroid Tab*) 112 mcg PO DAILY@0600 [facility] Last Admin: 10/15/16 05:27 Dose: 112 mcg Nystatin (Nystatin Top Powder*) 1 applic TOPICAL BID [facility] Last Admin: 10/15/16 08:36 Dose: 1 apply Olanzapine (Zyprexa Tab*) 20 mg PO BEDTIME [facility] Last Admin: 10/14/16 20:23 Dose: 20 mg Pregabalin (Lyrica Cap(*)) 100 mg PO BID [facility] Last Admin: 10/15/16 08:37 Dose: 100 mg Rivaroxaban (Xarelto (*)) 20 mg PO DAILY [facility] Last Admin: 10/15/16 08:36 Dose: 20 mg
--- NOTE | 2016-10-15 14:00 | PN ---
Subjective Date of Service: 10/15/16 Interval History: Pt feels well, has no complaints Objective Active Medications: Atorvastatin Calcium (Lipitor*) 40 mg PO BEDTIME [facility] Last Admin: 10/14/16 20:21 Dose: 40 mg Famotidine (Pepcid Tab*) 20 mg PO BID [facility] Last Admin: 10/15/16 08:36 Dose: 20 mg Fluphenazine HCl (Prolixin Tab*) 2.5 mg PO BID [facility] Furosemide (Lasix Tab*) 20 mg PO DAILY [facility] Last Admin: 10/15/16 08:36 Dose: 20 mg Glipizide (Glucotrol Tab*) 5 mg PO 0800,1700 [facility] Last Admin: 10/15/16 08:36 Dose: 5 mg Insulin Human Lispro (Humalog*) 0 - 18 units SUBCUT [facility] PRN Reason: Protocol Last Admin: 10/15/16 12:20 Dose: Not Given Levothyroxine Sodium (Synthroid Tab*) 112 mcg PO DAILY@0600 [facility] Last Admin: 10/15/16 05:27 Dose: 112 mcg Nystatin (Nystatin Top Powder*) 1 applic TOPICAL BID [facility] Last Admin: 10/15/16 08:36 Dose: 1 apply Olanzapine (Zyprexa Tab*) 20 mg PO BEDTIME [facility] Last Admin: 10/14/16 20:23 Dose: 20 mg Pregabalin (Lyrica Cap(*)) 100 mg PO BID [facility] Last Admin: 10/15/16 08:37 Dose: 100 mg Rivaroxaban (Xarelto (*)) 20 mg PO DAILY [facility] Last Admin: 10/15/16 08:36 Dose: 20 mg Vital Signs 10/14/16 10/14/16 10/14/16 15:30 16:08 20:00 Temperature 99.4 F Pulse Rate 78 71 Respiratory 20 16 22 Rate Blood Pressure 121/60 (mmHg) O2 Sat by Pulse 97 97 Oximetry 10/14/16 10/14/16 10/14/16 20:16 20:22 22:22 Temperature 98.2 F Pulse Rate 72 Respiratory 20 20 20 Rate Blood Pressure 117/54 (mmHg) O2 Sat by Pulse 92 Oximetry 10/14/16 10/15/16 10/15/16 23:58 03:41 08:00 Temperature 98.5 F 97.9 F Pulse Rate 85 73 Respiratory 16 16 16 Rate Blood Pressure 120/47 110/51 (mmHg) O2 Sat by Pulse 96 93 Oximetry 10/15/16 10/15/16 10/15/16 08:37 09:04 10:37 Temperature Pulse Rate 98 Respiratory 12 18 14 Rate Blood Pressure (mmHg) O2 Sat by Pulse 96 Oximetry 10/15/16 11:12 Temperature 98.6 F Pulse Rate 83 Respiratory 16 Rate Blood Pressure 97/57 (mmHg) O2 Sat by Pulse 93 Oximetry Oxygen Devices in Use Now: Nasal Cannula - at 1.5 L Appearance: 56 yo M in nAD, aAOx3, poor historian Eyes: No Scleral Icterus, PERRLA Ears/Nose/Mouth/Throat: NL Teeth, Lips, Gums, Mucous Membranes Moist Neck: NL Appearance and Movements; NL JVP, Trachea Midline Respiratory: Symmetrical Chest Expansion and Respiratory Effort, Clear to Auscultation Cardiovascular: NL Sounds; No Murmurs; No JVD, RRR Abdominal: NL Sounds; No Tenderness; No Distention Lymphatic: No Cervical Adenopathy Extremities: No Clubbing, Cyanosis, - - trace pedal edema b/l Skin: No Rash or Ulcers, No Nodules or Sclerosis Neurological: Alert and Oriented x 3, NL Muscle Strength and Tone Result Diagrams: 10/11/16 08:10 10/12/16 06:40 Additional Lab and Data: Lab Results 10/10/16 Range/Units 11:35 WBC 7.3 (3.5-10.8) 10^3/ul RBC 4.56 (4.0-5.4) 10^6/ul Hgb 13.2 L (14.0-18.0) g/dl Hct 41 L (42-52) % MCV 89 (80-94) fL MCH 29 (27-31) pg MCHC 33 (31-36) g/dl RDW 15 (10.5-15) % Plt Count 184 (150-450) 10^3/ul MPV 7 L (7.4-10.4) um3 Neut % (Auto) 76.3 (38-83) % Lymph % (Auto) 14.7 L (25-47) % [place] % (Auto) 4.9 (1-9) % Eos % (Auto) 2.4 (0-6) % Baso % (Auto) 1.7 (0-2) % Absolute Neuts (auto) 5.6 (1.5-7.7) 10^3/ul Absolute Lymphs (auto) 1.1 (1.0-4.8) 10^3/ul Absolute Monos (auto) 0.4 (0-0.8) 10^3/ul Absolute Eos (auto) 0.2 (0-0.6) 10^3/ul Absolute Basos (auto) 0.1 (0-0.2) 10^3/ul Absolute Nucleated RBC 0 10^3/ul Nucleated RBC % 0 Microbiology and Other Data: Microbiology 10/10/16 16:00 Aerobic Blood Culture - Preliminary Blood Venous No Growth Day 2 Anaerobic Blood Culture - Preliminary No Growth Day 2 Blood Culture - Final 10/10/16 16:20 Aerobic Blood Culture - Preliminary Blood Venous No Growth Day 2 Anaerobic Blood Culture - Preliminary No Growth Day 2 Blood Culture - Final 10/10/16 17:00 Nasal Screen MRSA (PCR)([facility]) - Final Nasal Mrsa Positive 10/10/16 17:00 Influenza Types A,B Antigen ([facility]) - Final Nasal Specimen received for Influenza A/B Molecular testing Assess/Plan/Problems-Billing Assessment: 56 yo M with h/o schizophrenia, obesity, chronic 02 use at 2 L, HTN. DVT/PE presents with acute hypercapnic respiratory failure - Patient Problems (1) Acute hypercapnic respiratory failure Comment: due to obesity /hypoventilation syndrome, suspect also noncompliance with 02 use. Off BIPAP, now back to his baseline baseline 02. Pt states that he was supposed to have CPAP at home, but never got the machine. Went for a sleep study in the past (2) Schizo affective schizophrenia Comment: Continue fluphenazine, olanzapine, and Invega as per psychiatry consult As per psychiatry pt is unable to live independently (3) DM type 2 (diabetes mellitus, type 2) Comment: continue glipizide and ISS. (4) Pulmonary embolism Comment: Remote Continue Xarelto at 20 mg daily. (5) HTN (hypertension) Comment: Continue furosemide . Due to low SBP's lisinopril will be held (6) DVT prophylaxis Comment: Xarelto (7) Hypothyroidism Comment: TSH wnl 07/19/16. cont synthroid Status and Disposition: Inpatient, as per psychiatry consult pt is unable to live independently. SW/CM consults ongoing Medically ready for discharge
[2016-10-15] MEDS: Atorvastatin* 10 MG TAB PO SCH (21:12)
[2016-10-15] MEDS: OLANzapine TAB* 10 MG PO SCH (21:14)
[2016-10-15] MEDS: Acetaminophen TAB* 325 MG PO PRN (23:33)
[2016-10-16] MEDS: Acetaminophen TAB* 325 MG PO PRN (05:39)
[2016-10-16] MEDS: Levothyroxine TAB* 112 MCG TAB PO SCH (05:39)
[2016-10-16 06:38] LABS: Hematocrit 44 % (42-52); Hemoglobin 14.2 g/dl (14.0-18.0); Mean Corpuscular HGB Conc 33 g/dl (31-36); Mean Corpuscular Hemoglobin 29 pg (27-31); Mean Corpuscular Volume 88 fL (80-94); Mean Platelet Volume 8 um3 (7.4-10.4); Red Blood Count 4.96 10^6/ul (4.0-5.4); Red Cell Distribution Width 15 % (10.5-15); White Blood Count 8.6 10^3/ul (3.5-10.8)
[2016-10-16 07:21] LABS: BUN/Creatinine Ratio 20.5 (8-20); Calcium 9.9 mg/dL (8.6-10.3); EGFR African American 115.2 (>60); EGFR Non-African American 89.6 (>60); Potassium 4.3 mmol/L (3.5-5.0)
[2016-10-16] MEDS: Pregabalin CAP(*) 100 MG PO SCH (08:36)
[2016-10-16] MEDS: glipiZIDE TAB* 5 MG PO SCH (08:36)
[2016-10-16] MEDS: Famotidine TAB* 20 MG PO SCH (08:36)
[2016-10-16] MEDS: Furosemide TAB* 20 MG PO SCH (08:36)
[2016-10-16] MEDS: fluPHENAZine HCL TAB* 5 MG PO SCH (08:37)
[2016-10-16] MEDS: Rivaroxaban TAB(*) 20 MG TAB PO SCH (08:39)
[2016-10-16] MEDS: Insulin LISPRO* 1 UNITS UNIT SUBCUT SCH ×2 (08:53→12:38)
[2016-10-16] MEDS: Nystatin TOP POWDER* 15 GM BTL TOPICAL SCH ×2 (11:45→11:56)
--- NOTE | 2016-10-16 12:43 | PN ---
Subjective Date of Service: 10/16/16 Interval History: Pt feels well. No complaints. Objective Active Medications: Acetaminophen (Tylenol Tab*) 650 mg PO Q6H PRN PRN Reason: PAIN Last Admin: 10/16/16 05:39 Dose: 650 mg Atorvastatin Calcium (Lipitor*) 40 mg PO BEDTIME [facility] Last Admin: 10/15/16 21:12 Dose: 40 mg Famotidine (Pepcid Tab*) 20 mg PO BID [facility] Last Admin: 10/16/16 08:36 Dose: 20 mg Fluphenazine HCl (Prolixin Tab*) 2.5 mg PO BID [facility] Last Admin: 10/16/16 08:37 Dose: 2.5 mg Furosemide (Lasix Tab*) 20 mg PO DAILY [facility] Last Admin: 10/16/16 08:36 Dose: 20 mg Glipizide (Glucotrol Tab*) 5 mg PO 0800,1700 [facility] Last Admin: 10/16/16 08:36 Dose: 5 mg Insulin Human Lispro (Humalog*) 0 - 18 units SUBCUT ACHS [facility] PRN Reason: Protocol Last Admin: 10/16/16 12:38 Dose: Not Given Levothyroxine Sodium (Synthroid Tab*) 112 mcg PO DAILY@0600 [facility] Last Admin: 10/16/16 05:39 Dose: 112 mcg Nystatin (Nystatin Top Powder*) 1 applic TOPICAL BID [facility] Last Admin: 10/16/16 11:56 Dose: Not Given Olanzapine (Zyprexa Tab*) 20 mg PO BEDTIME [facility] Last Admin: 10/15/16 21:14 Dose: 20 mg Pregabalin (Lyrica Cap(*)) 100 mg PO BID [facility] Last Admin: 10/16/16 08:36 Dose: 100 mg Rivaroxaban (Xarelto (*)) 20 mg PO DAILY [facility] Last Admin: 10/16/16 08:39 Dose: 20 mg Vital Signs 10/15/16 10/15/16 10/15/16 16:17 20:00 21:14 Temperature Pulse Rate 80 Respiratory 16 18 16 Rate Blood Pressure 109/64 (mmHg) O2 Sat by Pulse 95 Oximetry 10/15/16 10/15/16 10/16/16 23:14 23:21 01:14 Temperature 98.0 F Pulse Rate 88 Respiratory 18 16 18 Rate Blood Pressure 115/73 (mmHg) O2 Sat by Pulse 96 Oximetry 10/16/16 10/16/16 10/16/16 07:53 08:00 08:36 Temperature 97.7 F Pulse Rate 93 Respiratory 16 16 Rate Blood Pressure 121/75 (mmHg) O2 Sat by Pulse 98 Oximetry 10/16/16 10/16/16 10:36 12:36 Temperature Pulse Rate Respiratory 18 18 Rate Blood Pressure (mmHg) O2 Sat by Pulse Oximetry Oxygen Devices in Use Now: Nasal Cannula - at 1.5 L Appearance: 56 yo M in NAD, aAOx3, poor historian Eyes: No Scleral Icterus, PERRLA Ears/Nose/Mouth/Throat: NL Teeth, Lips, Gums, Mucous Membranes Moist Neck: NL Appearance and Movements; NL JVP, Trachea Midline Respiratory: Symmetrical Chest Expansion and Respiratory Effort, Clear to Auscultation Cardiovascular: NL Sounds; No Murmurs; No JVD, RRR Abdominal: NL Sounds; No Tenderness; No Distention Lymphatic: No Cervical Adenopathy Extremities: No Clubbing, Cyanosis, - - trace ankle edema b/l Skin: No Rash or Ulcers, No Nodules or Sclerosis Neurological: Alert and Oriented x 3, NL Muscle Strength and Tone Result Diagrams: 10/16/16 06:21 10/16/16 06:21 Additional Lab and Data: Lab Results 10/10/16 Range/Units 11:35 WBC 7.3 (3.5-10.8) 10^3/ul RBC 4.56 (4.0-5.4) 10^6/ul Hgb 13.2 L (14.0-18.0) g/dl Hct 41 L (42-52) % MCV 89 (80-94) fL MCH 29 (27-31) pg MCHC 33 (31-36) g/dl RDW 15 (10.5-15) % Plt Count 184 (150-450) 10^3/ul MPV 7 L (7.4-10.4) um3 Neut % (Auto) 76.3 (38-83) % Lymph % (Auto) 14.7 L (25-47) % Real % (Auto) 4.9 (1-9) % Eos % (Auto) 2.4 (0-6) % Baso % (Auto) 1.7 (0-2) % Absolute Neuts (auto) 5.6 (1.5-7.7) 10^3/ul Absolute Lymphs (auto) 1.1 (1.0-4.8) 10^3/ul Absolute Monos (auto) 0.4 (0-0.8) 10^3/ul Absolute Eos (auto) 0.2 (0-0.6) 10^3/ul Absolute Basos (auto) 0.1 (0-0.2) 10^3/ul Absolute Nucleated RBC 0 10^3/ul Nucleated RBC % 0 Microbiology and Other Data: Microbiology 10/10/16 16:00 Aerobic Blood Culture - Preliminary Blood Venous No Growth Day 2 Anaerobic Blood Culture - Preliminary No Growth Day 2 Blood Culture - Final 10/10/16 16:20 Aerobic Blood Culture - Preliminary Blood Venous No Growth Day 2 Anaerobic Blood Culture - Preliminary No Growth Day 2 Blood Culture - Final 10/10/16 17:00 Nasal Screen MRSA (PCR)([facility]) - Final Nasal Mrsa Positive 10/10/16 17:00 Influenza Types A,B Antigen ([facility]) - Final Nasal Specimen received for Influenza A/B Molecular testing Assess/Plan/Problems-Billing Assessment: 56 yo M with h/o schizophrenia, obesity, chronic 02 use at 2 L, HTN. DVT/PE presents with acute hypercapnic respiratory failure - Patient Problems (1) Acute hypercapnic respiratory failure Comment: due to obesity /hypoventilation syndrome, suspect also noncompliance with 02 use. Off BIPAP, now back to his baseline baseline 02. (2) Schizo affective schizophrenia Comment: Continue fluphenazine, olanzapine, and Invega as per psychiatry consult As per psychiatry pt is unable to live independently (3) DM type 2 (diabetes mellitus, type 2) Comment: continue glipizide and ISS. (4) Pulmonary embolism Comment: Remote Continue Xarelto at 20 mg daily. (5) HTN (hypertension) Comment: Continue furosemide . Due to low SBP's lisinopril will be held (6) DVT prophylaxis Comment: Xarelto (7) Hypothyroidism Comment: TSH wnl 07/19/16. cont synthroid Status and Disposition: Inpatient, as per psychiatry consult pt is unable to live independently. SW/CM consults ongoing Medically ready for discharge
[2016-10-16 14:01] VITALS: BP 113/60
--- NOTE | 2016-10-17 12:52 | DS ---
DISCHARGE SUMMARY/HISTORY OF PRESENT ILLNESS: DATE OF ADMISSION: 10/10/16 DATE OF DISCHARGE/ADMISSION TO SWING STATUS: 10/16/16 Please note that the patient is being discharged to swing bed status. Please accept this dictation as both discharge summary and history and physical for admission on swing status that began on 10/16/16. PRIMARY CARE PROVIDER: Dr. Loyola DISCHARGE DIAGNOSIS: Acute hypercapnic respiratory failure due to obesity hypoventilation syndrome and noncompliance with O2 use. SECONDARY DIAGNOSES: 1. Schizoaffective schizophrenia. 2. Diabetes type 2. 3. History of pulmonary embolism. 4. Morbid obesity. 5. Chronic obstructive pulmonary disease. 6. Asthma. 7. Anxiety. 8. Depression. 9. Hypothyroidism. 10. Chronic back pain. 11. History of cataract surgery. 12. History of pneumonia and hospitalization for chronic obstructive pulmonary disease exacerbations in the past. 13. Ongoing tobacco abuse. 14. History of medical noncompliance. DISCHARGE MEDICATIONS: 1. Trazodone 50 mg at bedtime p.r.n. 2. Glipizide 5 mg b.i.d. 3. Fluphenazine 2.5 mg b.i.d. 4. Simvastatin 40 mg at bedtime. 5. Zoloft 200 mg daily. 6. Xarelto 20 mg daily. 7. Pregabalin 100 mg b.i.d. 8. Invega Sustenna 156 mg IM monthly. 9. Omeprazole 20 mg daily. 10. Olanzapine 20 mg at bedtime. 11. Nystatin powder topical b.i.d. 12. Tradjenta 5 mg daily. 13. Levothyroxine 112 mcg daily. 14. Insulin lispro sliding scale. 15. Furosemide 20 mg daily. 16. Advair 1 puff b.i.d. 17. Albuterol inhaler 2 puffs every 4 hours p.r.n. 18. Albuterol nebulizer on a p.r.n. basis. 19. Acetaminophen 650 mg every 6 hours p.r.n. Please note that the patient's fluphenazine dose was lowered due to hypotension. Also, lisinopril was stopped during the hospital stay due to hypotension. LABORATORY DATA AND STUDIES PERFORMED: Last on 10/16/16, white blood cell count 5.6, hemoglobin 14.2, hematocrit 44, and platelets of 215. Sodium was 136, potassium 4.3, chloride 97, carbon dioxide 35, BUN 18, and creatinine 0.88. HOSPITALIZATION COURSE: Andrea Mccallum is a 56-year-old male with history of schizophrenia as well as oxygen-dependent COPD and obstructive sleep apnea that requires oxygen at night, who presented to the hospital with respiratory failure and confusion. The patient required an ICU stay and noninvasive pressure ventilation initially and was under the care of the story editor. While his oxygen requirement normalized, he was transferred to medical floor for further management. He did very well without treatment with antibiotics or steroids. He was weaned down to oxygen at 1.5 L continuously. He had been ambulating and doing well, but due to his recurrent hospitalizations and psychiatric problems, he was seen by Dr. Garibay and Dr. Pollard from Psychiatry. It was recommended by the psychiatrists for the patient to be placed in a long- term healthcare facility. The patient is intermittently confused, and due to that, he is medically noncompliant and he is at risk of recurring problems with hypoxemia. The patient medications and forget to use his oxygen at night , which led him to acute hypercapnic respiratory failure and ICU admission at this time. The patient is in the process of being accepted in the long-term healthcare facility. At this point, the patient is being transferred to a swing bed status for further management and waiting for acceptance to a long- term hospital care facility. PHYSICAL EXAMINATION AT DISCHARGE: Please see the new progress note. Shortly, the patient is alert and oriented x3. He is a very poor historian and intermittently confused. He is oxygen dependent at 1.5 L and discharged to swing. He is pleasant and cooperative and able to ambulate without needed help. Please note this is a short summary of the patient's hospital stay. Please refer to further medical records for details. TIME SPENT: Approximately 40 minutes was spent on the patient's discharge. Please also accept the current document as history and physical to the patient' s swing bed status. CC: Dr. Pollard; Dr. Garibay; Dr. Loyola * [id number]/[facility] #: [id number] [facility]
== END 2016-10-16 15:07 | disposition swing bed (61) | DRG 189 ==
LOC: ED 09:55 → ICU 12:40 → MED 10-11 23:00
PROVIDERS: ADMIT Internal Medicine Critical Care Medicine; ATTEND Internal Medicine
PROC: 5A09357 Assistance with Respiratory Ventilation, Less than 24 Consecutive Hours, Continuous Positive Airway Pressure (ICD-10-PCS; principal; 2016-10-10)
DX: J96.02 Acute respiratory failure with hypercapnia (principal); I95.9 Hypotension, unspecified; F05 Delirium due to known physiological condition; E66.2 Morbid (severe) obesity with alveolar hypoventilation; J44.9 Chronic obstructive pulmonary disease, unspecified; Z99.81 Dependence on supplemental oxygen; Z68.43 Body mass index [BMI] 50.0-59.9, adult; E11.36 Type 2 diabetes mellitus with diabetic cataract; F25.9 Schizoaffective disorder, unspecified; F41.9 Anxiety disorder, unspecified; F32.9 Major depressive disorder, single episode, unspecified; G89.29 Other chronic pain; M54.9 Dorsalgia, unspecified; F17.210 Nicotine dependence, cigarettes, uncomplicated; E03.9 Hypothyroidism, unspecified; E78.00 Pure hypercholesterolemia, unspecified; I10 Essential (primary) hypertension; M19.90 Unspecified osteoarthritis, unspecified site; Z87.442 Personal history of urinary calculi; Z98.41 Cataract extraction status, right eye; Z83.3 Family history of diabetes mellitus; Z88.8 Allergy status to other drugs, medicaments and biological substances; Z91.018 Allergy to other foods; Z86.718 Personal history of other venous thrombosis and embolism; Z91.19 Patient's noncompliance with other medical treatment and regimen; Z86.711 Personal history of pulmonary embolism; Z87.01 Personal history of pneumonia (recurrent); Z91.14 Patient's other noncompliance with medication regimen; Z79.4 Long term (current) use of insulin
CPT/HCPCS: 36415; 36600; 71010; 80048; 80053; 81003; 82803; 83605; 83880; 84484; 85025; 87040; 87502; 87641; 93005; 94640; 94660; 94760; 99406; A9270-GY; J0456; J0696; J2930

== ENCOUNTER 2016-10-16 15:07 | Inpatient (IN) | payer MEDICARE, MEDICAID ==
[2016-10-16] MEDS ORDERED: Albuterol 2.5 MG/3 ML NEB.SOL* (0.083%) INH PRN (15:48)
[2016-10-16] MEDS ORDERED: Albuterol HFA INHALER* 8 gm MDI INH PRN (15:48)
[2016-10-16] MEDS ORDERED: Dextrose 50% Syringe 50 ML* 25 GM/50 ML SYRINGE IV PUSH PRN (15:58)
[2016-10-16] MEDS: Insulin LISPRO* 1 UNITS UNIT SUBCUT SCH (17:09)
[2016-10-16] MEDS: glipiZIDE TAB* 5 MG PO SCH (17:09)
[2016-10-16] MEDS: Mometasone/Formoter 100/5 MDI INH SCH (19:38)
[2016-10-16] MEDS: Acetaminophen TAB* 325 MG PO PRN (20:36)
[2016-10-16] MEDS: fluPHENAZine HCL TAB* 5 MG PO SCH (20:37)
[2016-10-16] MEDS: Atorvastatin* 20 MG TAB PO SCH (20:37)
[2016-10-16] MEDS: Nystatin TOP POWDER* 15 GM BTL TOPICAL SCH (20:40)
[2016-10-16] MEDS: OLANzapine TAB* 10 MG PO SCH (20:40)
[2016-10-16] MEDS ORDERED: traZODone TAB* 50 MG TAB PO PRN (21:00)
[2016-10-17] MEDS: Levothyroxine TAB* 112 MCG TAB PO SCH (05:41)
[2016-10-17] MEDS: Insulin LISPRO* 1 UNITS UNIT SUBCUT SCH ×3 (08:16→17:27)
[2016-10-17] MEDS: glipiZIDE TAB* 5 MG PO SCH ×2 (08:17→17:28)
[2016-10-17] MEDS: Rivaroxaban TAB(*) 20 MG TAB PO SCH (08:17)
[2016-10-17] MEDS: fluPHENAZine HCL TAB* 5 MG PO SCH ×2 (08:17→20:44)
[2016-10-17] MEDS: Omeprazole CAP* 20 MG PO SCH (08:17)
[2016-10-17] MEDS: Furosemide TAB* 20 MG PO SCH (08:18)
[2016-10-17] MEDS: Nystatin TOP POWDER* 15 GM BTL TOPICAL SCH ×2 (08:18→20:59)
[2016-10-17] MEDS: Sertraline* 100 MG TAB PO SCH (08:19)
[2016-10-17] MEDS: Mometasone/Formoter 100/5 MDI INH SCH ×2 (10:02→19:33)
--- NOTE | 2016-10-17 11:31 | CONSULT ---
Identification - Patient Identification Reason for Psychiatric Consultation: Incapacitating Symptoms -: Patient is a 56 year old, M admitted on 10/16/16. - MHU Identification Employment Status: Disabled Hx Psychiatric Hospitalization: Yes History - Objective HPI: Andrea is better oriented to time and place today, perhaps secondary to frequent promptings by staff and other clinicians, however, he is not oriented at all to his situation. "I don't have anything to play with in here. Oh, I' ve these things on the wall, but they're not my board games. Put in the good word for me and maybe I can go to the store." He awaits SNF placement as per team notes. Lab Results: Laboratory Tests 10/16/16 10/16/16 10/17/16 16:37 21:16 07:32 POC Glucose (mg/dL) 142 H 224 H 173 H Exam Appearance: Obese Hygiene: Normal Grooming: Disheveled Psychomotor Activities: Normal Exhibits Abnormal Movement: No Attitude and Relatedness: Cooperative Eye Contact: Good - Speech Quality: Unpressured Latencies: Normal Quantity: Appropriate Patient's Decription of Mood: "Fine" Observed Affect: Fair Affect Consistent with: Euthymia Patient's Thought Process: Disorganized Thought Content: No Passive Wish, No Suicidal Planning, No Homicidal Ideation, No Paranoid Ideation Experiencing Hallucinations: No, Sensorium is Clear Type of Hallucinations: Visual: No, Auditory: No, Command: No Level of Consciousness: Alert Orientation: Yes Intact, Yes Orientated to Time, Yes Orientated to Place, Yes Orientated to Person Impulse Control: Poor Insight and Judgement: Impaired Impression - Impression Clinical Impression: 56 y.o. single, white male with a history of schizoaffective DO and comorbid obesity and COPD who is admitted for the fourth time this year for hypercapnic respiratory failure associated with confusion and thought disorganization. The patient does not have capacity to make informed medical decisions and is incapable of living independently at this time. Inpatient DSM-IV Dx: Delirium, secondary to respiratory disease Plan - Treatment Plan Treatment Plan: The patient is receiving oral olanzapine, oral fluphenazine and injectable, long -acting paliperidone. He remains encephalopathic and requires SNF placement for his safety. Psychiatry will continue to follow. Medications: Current Medications Acetaminophen (Tylenol Tab*) 650 mg PO Q6H PRN PRN Reason: PAIN Last Admin: 10/16/16 20:36 Dose: 650 mg Albuterol (Ventolin Hfa Inhaler*) 2 puff INH Q4H PRN PRN Reason: SHORTNESS OF BREATH Albuterol (Ventolin 2.5 Mg/3 Ml Neb.Manisha*) 2.5 mg INH Q4H PRN PRN Reason: SHORTNESS OF BREATH Atorvastatin Calcium (Lipitor*) 20 mg PO BEDTIME [facility] Last Admin: 10/16/16 20:37 Dose: 20 mg Dextrose (D50w Syringe 50 Ml*) 12.5 gm IV PUSH .FOR FS < 60 - SS PRN PRN Reason: FS < 60 Fluphenazine HCl (Prolixin Tab*) 2.5 mg PO BID [facility] Last Admin: 10/17/16 08:17 Dose: 2.5 mg Furosemide (Lasix Tab*) 20 mg PO DAILY [facility] Last Admin: 10/17/16 08:18 Dose: 20 mg Glipizide (Glucotrol Tab*) 5 mg PO BID [facility] Last Admin: 10/17/16 08:17 Dose: 5 mg Insulin Human Lispro (Humalog*) 0 units SUBCUT [facility] PRN Reason: Protocol Last Admin: 10/17/16 08:16 Dose: 3 units Levothyroxine Sodium (Synthroid Tab*) 112 mcg PO 0600 [facility] Last Admin: 10/17/16 05:41 Dose: 112 mcg Mometasone Furoate/Formoterol Fumar (Dulera 100/5 Mdi*) 2 puff INH BID [facility] Last Admin: 10/17/16 10:02 Dose: 2 puff Nystatin (Nystatin Top Powder*) 1 applic TOPICAL BID [facility] Last Admin: 10/17/16 08:18 Dose: 1 applic Olanzapine (Zyprexa Tab*) 20 mg PO BEDTIME [facility] Last Admin: 10/16/16 20:40 Dose: 20 mg Omeprazole (Prilosec Cap*) 20 mg PO 0730 [facility] Last Admin: 10/17/16 08:17 Dose: 20 mg Rivaroxaban (Xarelto (*)) 20 mg PO DAILY [facility] Last Admin: 10/17/16 08:17 Dose: 20 mg Sertraline HCl (Zoloft*) 200 mg PO DAILY [facility] Last Admin: 10/17/16 08:19 Dose: 200 mg Trazodone HCl (Desyrel Tab*) 50 mg PO BEDTIME PRN PRN Reason: SLEEP
[2016-10-17] MEDS: Atorvastatin* 20 MG TAB PO SCH (20:43)
[2016-10-17] MEDS: OLANzapine TAB* 10 MG PO SCH (20:44)
[2016-10-18] MEDS: Levothyroxine TAB* 112 MCG TAB PO SCH (06:21)
[2016-10-18] MEDS: Mometasone/Formoter 100/5 MDI INH SCH ×2 (07:47→20:07)
[2016-10-18] MEDS: fluPHENAZine HCL TAB* 5 MG PO SCH ×2 (08:29→20:51)
[2016-10-18] MEDS: Omeprazole CAP* 20 MG PO SCH (08:29)
[2016-10-18] MEDS: Rivaroxaban TAB(*) 20 MG TAB PO SCH (08:29)
[2016-10-18] MEDS: glipiZIDE TAB* 5 MG PO SCH ×2 (08:29→16:37)
[2016-10-18] MEDS: Furosemide TAB* 20 MG PO SCH (08:29)
[2016-10-18] MEDS: Insulin LISPRO* 1 UNITS UNIT SUBCUT SCH ×3 (08:30→16:32)
[2016-10-18] MEDS: Nystatin TOP POWDER* 15 GM BTL TOPICAL SCH ×2 (08:30→20:52)
[2016-10-18] MEDS: Sertraline* 100 MG TAB PO SCH (08:31)
[2016-10-18] MEDS: Acetaminophen TAB* 325 MG PO PRN (20:51)
[2016-10-18] MEDS: Atorvastatin* 20 MG TAB PO SCH (20:51)
[2016-10-18] MEDS: OLANzapine TAB* 10 MG PO SCH (20:51)
[2016-10-19] MEDS: Levothyroxine TAB* 112 MCG TAB PO SCH (05:35)
[2016-10-19] MEDS: Mometasone/Formoter 100/5 MDI INH SCH ×2 (07:47→20:30)
[2016-10-19] MEDS: Omeprazole CAP* 20 MG PO SCH (08:14)
[2016-10-19] MEDS: Sertraline* 100 MG TAB PO SCH (08:14)
[2016-10-19] MEDS: glipiZIDE TAB* 5 MG PO SCH ×2 (08:15→16:31)
[2016-10-19] MEDS: Rivaroxaban TAB(*) 20 MG TAB PO SCH (08:15)
[2016-10-19] MEDS: Insulin LISPRO* 1 UNITS UNIT SUBCUT SCH ×3 (08:15→16:29)
[2016-10-19] MEDS: fluPHENAZine HCL TAB* 5 MG PO SCH ×2 (08:15→21:07)
[2016-10-19] MEDS: Furosemide TAB* 20 MG PO SCH (08:15)
[2016-10-19] MEDS: Nystatin TOP POWDER* 15 GM BTL TOPICAL SCH ×2 (08:16→21:08)
[2016-10-19] MEDS: OLANzapine TAB* 10 MG PO SCH (21:07)
[2016-10-19] MEDS: Atorvastatin* 20 MG TAB PO SCH (21:07)
[2016-10-20] MEDS: Levothyroxine TAB* 112 MCG TAB PO SCH (06:01)
[2016-10-20] MEDS: Sertraline* 100 MG TAB PO SCH (08:20)
[2016-10-20] MEDS: fluPHENAZine HCL TAB* 5 MG PO SCH ×2 (08:20→20:00)
[2016-10-20] MEDS: glipiZIDE TAB* 5 MG PO SCH ×2 (08:20→16:49)
[2016-10-20] MEDS: Omeprazole CAP* 20 MG PO SCH (08:20)
[2016-10-20] MEDS: Rivaroxaban TAB(*) 20 MG TAB PO SCH (08:20)
[2016-10-20] MEDS: Furosemide TAB* 20 MG PO SCH (08:20)
[2016-10-20] MEDS: Nystatin TOP POWDER* 15 GM BTL TOPICAL SCH ×2 (08:20→20:01)
[2016-10-20] MEDS: Insulin LISPRO* 1 UNITS UNIT SUBCUT SCH ×3 (08:36→17:52)
[2016-10-20] MEDS: Mometasone/Formoter 100/5 MDI INH SCH ×2 (09:34→19:28)
--- NOTE | 2016-10-20 12:24 | PN ---
Progress Note - Progress Note Note: [facility] requires a Level 2 screen for placement.
[2016-10-20] MEDS: Acetaminophen TAB* 325 MG PO PRN (20:00)
[2016-10-20] MEDS: Atorvastatin* 20 MG TAB PO SCH (20:00)
[2016-10-20] MEDS: OLANzapine TAB* 10 MG PO SCH (20:01)
[2016-10-21] MEDS: Levothyroxine TAB* 112 MCG TAB PO SCH (05:34)
[2016-10-21] MEDS: glipiZIDE TAB* 5 MG PO SCH ×2 (07:44→17:28)
[2016-10-21] MEDS: Nystatin TOP POWDER* 15 GM BTL TOPICAL SCH ×2 (07:44→19:35)
[2016-10-21] MEDS: Furosemide TAB* 20 MG PO SCH (07:44)
[2016-10-21] MEDS: fluPHENAZine HCL TAB* 5 MG PO SCH ×2 (07:44→19:34)
[2016-10-21] MEDS: Rivaroxaban TAB(*) 20 MG TAB PO SCH (07:44)
[2016-10-21] MEDS: Omeprazole CAP* 20 MG PO SCH (07:44)
[2016-10-21] MEDS: Sertraline* 100 MG TAB PO SCH (07:46)
[2016-10-21] MEDS: Mometasone/Formoter 100/5 MDI INH SCH ×2 (07:54→20:18)
[2016-10-21] MEDS: Insulin LISPRO* 1 UNITS UNIT SUBCUT SCH ×3 (08:18→17:28)
[2016-10-21] MEDS: Atorvastatin* 20 MG TAB PO SCH (19:34)
[2016-10-21] MEDS: OLANzapine TAB* 10 MG PO SCH (19:35)
[2016-10-22] MEDS: Levothyroxine TAB* 112 MCG TAB PO SCH (05:44)
[2016-10-22] MEDS: Mometasone/Formoter 100/5 MDI INH SCH ×2 (07:51→20:15)
[2016-10-22] MEDS: Furosemide TAB* 20 MG PO SCH (08:06)
[2016-10-22] MEDS: fluPHENAZine HCL TAB* 5 MG PO SCH ×2 (08:06→20:02)
[2016-10-22] MEDS: Omeprazole CAP* 20 MG PO SCH (08:06)
[2016-10-22] MEDS: Insulin LISPRO* 1 UNITS UNIT SUBCUT SCH ×3 (08:06→16:33)
[2016-10-22] MEDS: glipiZIDE TAB* 5 MG PO SCH ×2 (08:06→16:31)
[2016-10-22] MEDS: Rivaroxaban TAB(*) 20 MG TAB PO SCH (08:06)
[2016-10-22] MEDS: Sertraline* 100 MG TAB PO SCH (08:07)
[2016-10-22] MEDS: Nystatin TOP POWDER* 15 GM BTL TOPICAL SCH ×2 (08:07→20:02)
[2016-10-22] MEDS: Acetaminophen TAB* 325 MG PO PRN (16:31)
[2016-10-22] MEDS: Atorvastatin* 20 MG TAB PO SCH (20:02)
[2016-10-22] MEDS: OLANzapine TAB* 10 MG PO SCH (20:02)
[2016-10-23] MEDS: Levothyroxine TAB* 112 MCG TAB PO SCH (05:43)
[2016-10-23] MEDS: fluPHENAZine HCL TAB* 5 MG PO SCH ×2 (08:03→21:55)
[2016-10-23] MEDS: Furosemide TAB* 20 MG PO SCH (08:04)
[2016-10-23] MEDS: Rivaroxaban TAB(*) 20 MG TAB PO SCH (08:04)
[2016-10-23] MEDS: Sertraline* 100 MG TAB PO SCH (08:04)
[2016-10-23] MEDS: Acetaminophen TAB* 325 MG PO PRN (08:04)
[2016-10-23] MEDS: glipiZIDE TAB* 5 MG PO SCH ×2 (08:04→17:24)
[2016-10-23] MEDS: Omeprazole CAP* 20 MG PO SCH (08:04)
[2016-10-23] MEDS: Mometasone/Formoter 100/5 MDI INH SCH ×2 (08:13→20:58)
[2016-10-23] MEDS: Nystatin TOP POWDER* 15 GM BTL TOPICAL SCH ×2 (08:23→21:55)
[2016-10-23] MEDS: Insulin LISPRO* 1 UNITS UNIT SUBCUT SCH ×3 (08:39→17:23)
--- NOTE | 2016-10-23 10:04 | PN ---
Subjective Date of Service: 10/23/16 Interval History: Patient seen this morning. No complaints, says another doctor told him he should start Chantix. Denies any urges to smoke at this time. Understands plans for placement. Family History: Unchanged from Admission Social History: Unchanged from Admission Past Medical History: Unchanged from Admission Objective Active Medications: Acetaminophen (Tylenol Tab*) 650 mg PO Q6H PRN Albuterol (Ventolin Hfa Inhaler*) 2 puff INH Q4H PRN Albuterol (Ventolin 2.5 Mg/3 Ml Neb.Manisha*) 2.5 mg INH Q4H PRN Atorvastatin Calcium (Lipitor*) 20 mg PO BEDTIME [facility] Dextrose (D50w Syringe 50 Ml*) 12.5 gm IV PUSH .FOR FS < 60 - SS PRN Fluphenazine HCl (Prolixin Tab*) 2.5 mg PO BID [facility] Furosemide (Lasix Tab*) 20 mg PO DAILY [facility] Glipizide (Glucotrol Tab*) 5 mg PO BID [facility] Insulin Human Lispro (Humalog*) 0 units SUBCUT [facility] Levothyroxine Sodium (Synthroid Tab*) 112 mcg PO 0600 [facility] Mometasone Furoate/Formoterol Fumar (Dulera 100/5 Mdi*) 2 puff INH BID [facility] Nystatin (Nystatin Top Powder*) 1 applic TOPICAL BID [facility] Olanzapine (Zyprexa Tab*) 20 mg PO BEDTIME [facility] Omeprazole (Prilosec Cap*) 20 mg PO 0730 [facility] Rivaroxaban (Xarelto (*)) 20 mg PO DAILY [facility] Sertraline HCl (Zoloft*) 200 mg PO DAILY [facility] Trazodone HCl (Desyrel Tab*) 50 mg PO BEDTIME PRN Vital Signs 10/22/16 10/22/16 10/22/16 16:00 20:00 20:19 Temperature Pulse Rate 67 Respiratory 16 Rate Blood Pressure (mmHg) O2 Sat by Pulse 98 95 Oximetry 10/23/16 10/23/16 07:21 08:17 Temperature 97.9 F Pulse Rate 72 76 Respiratory 16 Rate Blood Pressure 121/76 (mmHg) O2 Sat by Pulse 96 97 Oximetry Oxygen Devices in Use Now: Nasal Cannula Appearance: Middle-aged, morbidly obese M, sitting in chair in NAD Eyes: No Scleral Icterus Ears/Nose/Mouth/Throat: Mucous Membranes Moist Neck: NL Appearance and Movements; NL JVP Respiratory: Symmetrical Chest Expansion and Respiratory Effort, Clear to Auscultation, - - Distant BS Cardiovascular: NL Sounds; No Murmurs; No JVD, RRR Abdominal: - - Obese, soft, NTND, BS+ Lymphatic: No Cervical Adenopathy Extremities: No Edema Skin: No Rash or Ulcers Neurological: - - Alert, oriented, no focal deficits Assess/Plan/Problems-Billing Assessment: Acute hypercarbic respiratory failure in a 56 yo M with hx of morbid obesity, OHS, HTN, schizoaffective disorder, hx of DVT/PE. Patient converted to swing status on 10/16/16 - Patient Problems (1) Acute hypercapnic respiratory failure Current Visit: No Comment: due to obesity /hypoventilation syndrome, suspect also noncompliance with 02 use. Off BIPAP, now back to his baseline baseline . (2) Pulmonary embolism Current Visit: No Comment: Remote Continue Xarelto at 20 mg daily. (3) Hypothyroidism Current Visit: No Comment: TSH wnl 07/19/16. cont synthroid (4) DM type 2 (diabetes mellitus, type 2) Current Visit: No Comment: continue glipizide and ISS. (5) HTN (hypertension) Current Visit: No Comment: Continue furosemide. Lisinopril has been on hold. (6) Schizo affective schizophrenia Current Visit: No Comment: Continue fluphenazine, olanzapine, and Invega ( last injection 10/13) as per psychiatry consult As per psychiatry pt is unable to live independently (7) DVT prophylaxis Current Visit: No Comment: Xarelto Status and Disposition: Unable to live alone, awaiting placement.
[2016-10-23] MEDS: Atorvastatin* 20 MG TAB PO SCH (21:55)
[2016-10-23] MEDS: OLANzapine TAB* 10 MG PO SCH (21:55)
[2016-10-24] MEDS: Levothyroxine TAB* 112 MCG TAB PO SCH (05:29)
[2016-10-24] MEDS: Insulin LISPRO* 1 UNITS UNIT SUBCUT SCH ×3 (08:13→18:08)
[2016-10-24] MEDS: Furosemide TAB* 20 MG PO SCH (08:14)
[2016-10-24] MEDS: Sertraline* 100 MG TAB PO SCH (08:14)
[2016-10-24] MEDS: Rivaroxaban TAB(*) 20 MG TAB PO SCH (08:14)
[2016-10-24] MEDS: Omeprazole CAP* 20 MG PO SCH (08:14)
[2016-10-24] MEDS: glipiZIDE TAB* 5 MG PO SCH ×2 (08:15→18:08)
[2016-10-24] MEDS: Mometasone/Formoter 100/5 MDI INH SCH ×2 (08:33→22:13)
[2016-10-24] MEDS: fluPHENAZine HCL TAB* 5 MG PO SCH ×2 (10:29→21:18)
[2016-10-24] MEDS: Nystatin TOP POWDER* 15 GM BTL TOPICAL SCH ×2 (12:00→21:17)
[2016-10-24] MEDS: Atorvastatin* 20 MG TAB PO SCH (21:17)
[2016-10-24] MEDS: OLANzapine TAB* 10 MG PO SCH (21:19)
[2016-10-25] MEDS: Levothyroxine TAB* 112 MCG TAB PO SCH (05:15)
[2016-10-25] MEDS: Mometasone/Formoter 100/5 MDI INH SCH ×2 (07:30→21:21)
[2016-10-25] MEDS: Insulin LISPRO* 1 UNITS UNIT SUBCUT SCH ×3 (11:13→18:26)
[2016-10-25] MEDS: Sertraline* 100 MG TAB PO SCH (11:15)
[2016-10-25] MEDS: Rivaroxaban TAB(*) 20 MG TAB PO SCH (11:15)
[2016-10-25] MEDS: Omeprazole CAP* 20 MG PO SCH (11:16)
[2016-10-25] MEDS: Furosemide TAB* 20 MG PO SCH (11:16)
[2016-10-25] MEDS: glipiZIDE TAB* 5 MG PO SCH ×2 (11:16→18:28)
[2016-10-25] MEDS: fluPHENAZine HCL TAB* 5 MG PO SCH ×2 (11:18→21:35)
[2016-10-25] MEDS: Nystatin TOP POWDER* 15 GM BTL TOPICAL SCH ×2 (11:19→21:38)
--- NOTE | 2016-10-25 11:51 | CONSULT ---
Identification - Patient Identification Reason for Psychiatric Consultation: Incapacitating Symptoms -: Patient is a 56 year old, M admitted on 10/16/16. - MHU Identification Employment Status: Disabled Hx Psychiatric Hospitalization: Yes History - Objective HPI: Andrea is seen for psychiatric follow up today in his 4-N room, where I find him staring at a laptop computer with a screen that is currently off. He is oriented to person, place, time and situation. "They want to send me to a halfway. I don't know when." On cognitive testing he shows deficits in attention and delayed recall. As the conversation continues he demonstrates periods of confusion. "Well my girlfriend and my brother just . It was stressful, like a can sitting on top of your house." He does not seem to understand the risks of being sent home to his apartment. Lab Results: Laboratory Tests 10/16/16 10/16/16 10/17/16 16:37 21:16 07:32 POC Glucose (mg/dL) 142 H 224 H 173 H 10/17/16 10/17/16 10/18/16 12:00 16:53 05:11 POC Glucose (mg/dL) 128 H 145 H 162 H 10/18/16 10/18/16 10/18/16 07:42 12:18 16:30 POC Glucose (mg/dL) 175 H 162 H 123 H 10/18/16 10/19/16 10/19/16 20:14 07:15 12:03 POC Glucose (mg/dL) 223 H 176 H 205 H 10/19/16 10/20/16 10/20/16 16:03 08:20 12:01 POC Glucose (mg/dL) 167 H 184 H 150 H 10/20/16 10/21/16 10/21/16 16:50 07:44 12:07 POC Glucose (mg/dL) 162 H 191 H 150 H 10/21/16 10/22/16 10/22/16 16:32 07:29 11:55 POC Glucose (mg/dL) 153 H 232 H 171 H 10/22/16 10/23/16 10/23/16 16:33 08:22 11:45 POC Glucose (mg/dL) 123 H 191 H 132 H 10/23/16 10/24/16 10/24/16 16:13 07:40 12:11 POC Glucose (mg/dL) 142 H 160 H 113 H 10/24/16 10/25/16 17:49 07:33 POC Glucose (mg/dL) 132 H 167 H Exam Appearance: Obese Hygiene: Normal Grooming: Disheveled Psychomotor Activities: Normal Exhibits Abnormal Movement: No Attitude and Relatedness: Cooperative Eye Contact: Good - Speech Quality: Unpressured Latencies: Normal Quantity: Appropriate Patient's Decription of Mood: "Fine" Observed Affect: Fair Affect Consistent with: Euthymia Patient's Thought Process: Disorganized Thought Content: No Passive Wish, No Suicidal Planning, No Homicidal Ideation, No Paranoid Ideation Experiencing Hallucinations: No, Sensorium is Clear Type of Hallucinations: Visual: No, Auditory: No, Command: No Level of Consciousness: Alert Orientation: Yes Intact, Yes Orientated to Time, Yes Orientated to Place, Yes Orientated to Person Impulse Control: Poor Insight and Judgement: Impaired Impression - Impression Clinical Impression: 56 y.o. single, white male with a history of schizoaffective DO and comorbid obesity and COPD who is admitted for the fourth time this year for hypercapnic respiratory failure associated with confusion and thought disorganization. The patient still does not have capacity to make informed medical decisions and is incapable of living independently at this time. Merits Inpatient Hospitalization: No Plan - Treatment Plan Treatment Plan: The patient is receiving oral olanzapine, oral fluphenazine and injectable, long -acting paliperidone. He remains confused and still does not have capacity to make informed medical decisions. He would benefit from SNF placement for his safety. Psychiatry will continue to follow. Continued Medication Management: Continue Outpt Medication Medications: Current Medications Acetaminophen (Tylenol Tab*) 650 mg PO Q6H PRN PRN Reason: PAIN Last Admin: 10/23/16 08:04 Dose: 650 mg Albuterol (Ventolin Hfa Inhaler*) 2 puff INH Q4H PRN PRN Reason: SHORTNESS OF BREATH Albuterol (Ventolin 2.5 Mg/3 Ml Neb.Manisha*) 2.5 mg INH Q4H PRN PRN Reason: SHORTNESS OF BREATH Atorvastatin Calcium (Lipitor*) 20 mg PO BEDTIME [facility] Last Admin: 10/24/16 21:17 Dose: 20 mg Dextrose (D50w Syringe 50 Ml*) 12.5 gm IV PUSH .FOR FS < 60 - SS PRN PRN Reason: FS < 60 Fluphenazine HCl (Prolixin Tab*) 2.5 mg PO BID [facility] Last Admin: 10/25/16 11:18 Dose: 2.5 mg Furosemide (Lasix Tab*) 20 mg PO DAILY [facility] Last Admin: 10/25/16 11:16 Dose: 20 mg Glipizide (Glucotrol Tab*) 5 mg PO BID [facility] Last Admin: 10/25/16 11:16 Dose: 5 mg Insulin Human Lispro (Humalog*) 0 units SUBCUT [facility] PRN Reason: Protocol Last Admin: 10/25/16 11:13 Dose: 3 units Levothyroxine Sodium (Synthroid Tab*) 112 mcg PO 0600 [facility] Last Admin: 10/25/16 05:15 Dose: 112 mcg Mometasone Furoate/Formoterol Fumar (Dulera 100/5 Mdi*) 2 puff INH BID [facility] Last Admin: 10/25/16 07:30 Dose: 2 puff Nystatin (Nystatin Top Powder*) 1 applic TOPICAL BID [facility] Last Admin: 10/25/16 11:19 Dose: 1 applic Olanzapine (Zyprexa Tab*) 20 mg PO BEDTIME [facility] Last Admin: 10/24/16 21:19 Dose: 20 mg Omeprazole (Prilosec Cap*) 20 mg PO 0730 [facility] Last Admin: 10/25/16 11:16 Dose: 20 mg Rivaroxaban (Xarelto (*)) 20 mg PO DAILY [facility] Last Admin: 10/25/16 11:15 Dose: 20 mg Sertraline HCl (Zoloft*) 200 mg PO DAILY [facility] Last Admin: 10/25/16 11:15 Dose: 200 mg Trazodone HCl (Desyrel Tab*) 50 mg PO BEDTIME [facility] PRN Reason: SLEEP
[2016-10-25] MEDS: OLANzapine TAB* 10 MG PO SCH (21:36)
[2016-10-25] MEDS: Atorvastatin* 20 MG TAB PO SCH (21:36)
[2016-10-26] MEDS: Levothyroxine TAB* 112 MCG TAB PO SCH (06:00)
[2016-10-26] MEDS: Insulin LISPRO* 1 UNITS UNIT SUBCUT SCH ×3 (07:29→17:10)
[2016-10-26] MEDS: Sertraline* 100 MG TAB PO SCH (07:36)
[2016-10-26] MEDS: Omeprazole CAP* 20 MG PO SCH (07:36)
[2016-10-26] MEDS: glipiZIDE TAB* 5 MG PO SCH ×2 (07:36→17:12)
[2016-10-26] MEDS: Furosemide TAB* 20 MG PO SCH (07:36)
[2016-10-26] MEDS: fluPHENAZine HCL TAB* 5 MG PO SCH ×2 (07:37→21:10)
[2016-10-26] MEDS: Nystatin TOP POWDER* 15 GM BTL TOPICAL SCH ×2 (07:37→21:10)
[2016-10-26] MEDS: Rivaroxaban TAB(*) 20 MG TAB PO SCH (07:37)
[2016-10-26] MEDS: Mometasone/Formoter 100/5 MDI INH SCH ×2 (08:19→20:40)
[2016-10-26] MEDS: Atorvastatin* 20 MG TAB PO SCH (21:09)
[2016-10-26] MEDS: OLANzapine TAB* 10 MG PO SCH (21:10)
[2016-10-27] MEDS: Levothyroxine TAB* 112 MCG TAB PO SCH (06:08)
[2016-10-27] MEDS: Omeprazole CAP* 20 MG PO SCH (08:15)
[2016-10-27] MEDS: glipiZIDE TAB* 5 MG PO SCH ×2 (08:15→17:28)
[2016-10-27] MEDS: Sertraline* 100 MG TAB PO SCH (08:16)
[2016-10-27] MEDS: Rivaroxaban TAB(*) 20 MG TAB PO SCH (08:16)
[2016-10-27] MEDS: Insulin LISPRO* 1 UNITS UNIT SUBCUT SCH ×3 (08:16→17:03)
[2016-10-27] MEDS: fluPHENAZine HCL TAB* 5 MG PO SCH ×2 (08:16→19:32)
[2016-10-27] MEDS: Furosemide TAB* 20 MG PO SCH (08:16)
[2016-10-27] MEDS: Nystatin TOP POWDER* 15 GM BTL TOPICAL SCH ×2 (08:19→19:33)
[2016-10-27] MEDS: Mometasone/Formoter 100/5 MDI INH SCH ×2 (09:15→21:00)
[2016-10-27] MEDS: Atorvastatin* 20 MG TAB PO SCH (19:32)
[2016-10-27] MEDS: OLANzapine TAB* 10 MG PO SCH (19:32)
[2016-10-28] MEDS: Levothyroxine TAB* 112 MCG TAB PO SCH (06:03)
[2016-10-28] MEDS: fluPHENAZine HCL TAB* 5 MG PO SCH ×2 (08:08→20:17)
[2016-10-28] MEDS: glipiZIDE TAB* 5 MG PO SCH ×2 (08:08→17:11)
[2016-10-28] MEDS: Sertraline* 100 MG TAB PO SCH (08:08)
[2016-10-28] MEDS: Rivaroxaban TAB(*) 20 MG TAB PO SCH (08:08)
[2016-10-28] MEDS: Furosemide TAB* 20 MG PO SCH (08:08)
[2016-10-28] MEDS: Omeprazole CAP* 20 MG PO SCH (08:08)
[2016-10-28] MEDS: Insulin LISPRO* 1 UNITS UNIT SUBCUT SCH ×3 (08:10→17:11)
[2016-10-28] MEDS: Nystatin TOP POWDER* 15 GM BTL TOPICAL SCH ×2 (08:11→20:18)
[2016-10-28] MEDS: Mometasone/Formoter 100/5 MDI INH SCH ×2 (09:39→20:02)
[2016-10-28] MEDS: OLANzapine TAB* 10 MG PO SCH (20:17)
[2016-10-28] MEDS: Atorvastatin* 20 MG TAB PO SCH (20:17)
[2016-10-29] MEDS: Levothyroxine TAB* 112 MCG TAB PO SCH (05:48)
[2016-10-29] MEDS: Nystatin TOP POWDER* 15 GM BTL TOPICAL SCH ×2 (08:10→20:18)
[2016-10-29] MEDS: Rivaroxaban TAB(*) 20 MG TAB PO SCH (08:12)
[2016-10-29] MEDS: Omeprazole CAP* 20 MG PO SCH (08:12)
[2016-10-29] MEDS: glipiZIDE TAB* 5 MG PO SCH ×2 (08:12→17:06)
[2016-10-29] MEDS: Sertraline* 100 MG TAB PO SCH (08:12)
[2016-10-29] MEDS: Furosemide TAB* 20 MG PO SCH (08:12)
[2016-10-29] MEDS: Insulin LISPRO* 1 UNITS UNIT SUBCUT SCH ×3 (08:12→17:05)
[2016-10-29] MEDS: fluPHENAZine HCL TAB* 5 MG PO SCH ×2 (08:12→20:17)
[2016-10-29] MEDS: Mometasone/Formoter 100/5 MDI INH SCH ×2 (09:44→20:26)
--- NOTE | 2016-10-29 15:11 | DCNOTE ---
Subjective Date of Service: 10/29/16 Interval History: No new c/o. Family History: Unchanged from Admission Social History: Unchanged from Admission Past Medical History: Unchanged from Admission Objective Active Medications: Acetaminophen (Tylenol Tab*) 650 mg PO Q6H PRN PRN Reason: PAIN Last Admin: 10/23/16 08:04 Dose: 650 mg Albuterol (Ventolin Hfa Inhaler*) 2 puff INH Q4H PRN PRN Reason: SHORTNESS OF BREATH Albuterol (Ventolin 2.5 Mg/3 Ml Neb.Manisha*) 2.5 mg INH Q4H PRN PRN Reason: SHORTNESS OF BREATH Atorvastatin Calcium (Lipitor*) 20 mg PO BEDTIME [facility] Last Admin: 10/28/16 20:17 Dose: 20 mg Dextrose (D50w Syringe 50 Ml*) 12.5 gm IV PUSH .FOR FS < 60 - SS PRN PRN Reason: FS < 60 Fluphenazine HCl (Prolixin Tab*) 2.5 mg PO BID [facility] Last Admin: 10/29/16 08:12 Dose: 2.5 mg Furosemide (Lasix Tab*) 20 mg PO DAILY [facility] Last Admin: 10/29/16 08:12 Dose: 20 mg Glipizide (Glucotrol Tab*) 5 mg PO BID AC [facility] Last Admin: 10/29/16 08:12 Dose: 5 mg Insulin Human Lispro (Humalog*) 0 units [facility] PRN Reason: Protocol Last Admin: 10/29/16 11:25 Dose: Not Given Levothyroxine Sodium (Synthroid Tab*) 112 mcg PO 0600 [facility] Last Admin: 10/29/16 05:48 Dose: 112 mcg Mometasone Furoate/Formoterol Fumar (Dulera 100/5 Mdi*) 2 puff INH BID [facility] Last Admin: 10/29/16 09:44 Dose: 2 puff Nystatin (Nystatin Top Powder*) 1 applic TOPICAL BID [facility] Last Admin: 10/29/16 08:10 Dose: Not Given Olanzapine (Zyprexa Tab*) 20 mg PO BEDTIME [facility] Last Admin: 10/28/16 20:17 Dose: 20 mg Omeprazole (Prilosec Cap*) 20 mg PO 0730 [facility] Last Admin: 10/29/16 08:12 Dose: 20 mg Paliperidone Palmitate (Invega Sustenna*) 234 mg IM Q30D [facility] Rivaroxaban (Xarelto (*)) 20 mg PO DAILY [facility] Last Admin: 10/29/16 08:12 Dose: 20 mg Sertraline HCl (Zoloft*) 200 mg PO DAILY [facility] Last Admin: 10/29/16 08:12 Dose: 200 mg Trazodone HCl (Desyrel Tab*) 50 mg PO BEDTIME PRN PRN Reason: SLEEP Vital Signs 10/28/16 10/29/16 10/29/16 20:00 00:00 07:47 Pulse Rate 60 73 Respiratory 18 18 Rate Blood Pressure 150/84 (mmHg) O2 Sat by Pulse 96 97 97 Oximetry 10/29/16 10/29/16 08:00 09:45 Pulse Rate 75 Respiratory 16 15 Rate Blood Pressure (mmHg) O2 Sat by Pulse 97 Oximetry Oxygen Devices in Use Now: Nasal Cannula Appearance: Alert, on his left side in bed. Neutral affect, passive but cooperative. Looks comfotable. Eyes: No Scleral Icterus Ears/Nose/Mouth/Throat: Clear Oropharnyx, Mucous Membranes Moist Neck: NL Appearance and Movements; NL JVP, No Thyroid Enlargement, Masses Respiratory: Symmetrical Chest Expansion and Respiratory Effort, Clear to Auscultation, Clear to Percussion Cardiovascular: NL Sounds; No Murmurs; No JVD, RRR, No Edema, - Extremities: No Clubbing, Cyanosis, - - Tr edema BL. Skin: No Rash or Ulcers, No Nodules or Sclerosis, - Neurological: Alert and Oriented x 3, NL Sensation Assess/Plan/Problems-Billing Assessment: Acute hypercarbic respiratory failure in a 56 yo M with hx of morbid obesity, OHS, HTN, schizoaffective disorder, hx of DVT/PE. Patient converted to swing status on 10/16/16 - Patient Problems (1) COPD (chronic obstructive pulmonary disease) Current Visit: No Status: Chronic Priority: High Code(s): J44.9 - CHRONIC OBSTRUCTIVE PULMONARY DISEASE, UNSPECIFIED SNOMED Code(s): 56442750 Comment: Stable. Continue inhalers and nebulizers. Continue guaifenesin. He has an O2 tank in the room and uses O2 at home. (2) DM type 2 (diabetes mellitus, type 2) Current Visit: No Status: Chronic Priority: Medium Comment: Continue his usual home diabetic meds on discharge. (3) Hypothyroidism Current Visit: No Status: Acute Code(s): E03.9 - HYPOTHYROIDISM, UNSPECIFIED SNOMED Code(s): 45363667 Comment: TSH wnl 07/19/16. cont synthroid (4) Schizo affective schizophrenia Current Visit: No Status: Chronic Priority: Medium Code(s): F25.0 - SCHIZOAFFECTIVE DISORDER, BIPOLAR TYPE SNOMED Code(s): 714504327 Comment: Continue fluphenazine, olanzapine, and Invega (last injection 10/13 ) as per psychiatry consult Patient's care team notified of his discharge. New dose of paliperidone transmitted to [facility]. 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 Status and Disposition: Unable to live alone, awaiting placement.
--- NOTE | 2016-10-29 15:58 | PN ---
Progress Note - Progress Note Note: Time spent on discharge 50 minutes.
[2016-10-29] MEDS: Atorvastatin* 20 MG TAB PO SCH (20:17)
[2016-10-29] MEDS: OLANzapine TAB* 10 MG PO SCH (20:17)
--- NOTE | 2016-10-30 03:47 | DS ---
CC: Chris Loyola MD DISCHARGE SUMMARY: DATE OF ADMISSION: DATE OF DISCHARGE: 10/29/16 HOSPITAL COURSE: This 56-year-old man presented with respiratory [facility] and [facility] was noted to have a pH of 7.29 and a pCO2 of 74. He was admitted to the ICU and azael pedro on BiPAP. He gradually improved and within a few days, he was doing well on 2 L by nasal cannul a. Because of his schizoaffective schizophrenia, it was not clear what a safe discharge plan would be f or him and psychiatry came and helped evaluate him. They increased his paliperidone to 234 mg intra muscularly every 30 days. He got a dose on October 13. This may have been a little late for him to get the dose. His other psychiatric medications were continued. The [facility] authorities help ed evaluate his need for care at discharge and felt that his care team would enable him to live at h is previous level of care. He is being discharged on 10/30/16 to his home. FINAL DIAGNOSES: 1. Chronic obstructive pulmonary disease with acute exacerbation. 2. Diabetes mellitus. 3. Hypothyroidism. 4. Schizoaffective disorder. 5. Morbid obesity. DISCHARGE MEDICATIONS: 1. Paliperidone (Sustenna) 234 mg IM every 30 days. 2. Trazodone 50 mg at bedtime p.r.n. 3. Simvastatin 40 mg at bedtime. 4. Levothyroxine 112 mcg daily. 5. Glipizide 5 mg b.i.d. before meals. 6. Sertraline 200 mg daily. 7. Rivaroxaban 20 mg daily. 8. Albuterol sulfate 2 puffs every 4 hours p.r.n. 9. Furosemide 20 mg daily. 10. Fluticasone/salmeterol 115/21 mcg 1 puff b.i.d. 11. Olanzapine 20 mg at bedtime. 12. Omeprazole 20 mg daily. 13. Albuterol 2.5 mg by nebulizer every 4 hours p.r.n. 14. Acetaminophen 650 mg every 6 hours p.r.n. 15. Lispro insulin 0 to 18 mg before meals and at bedtime by sliding scale. 16. Nystatin topical powder to affected areas b.i.d. 17. Fluphenazine 2.5 mg b.i.d. The following medications have been discontinued: Linagliptin and pregabalin. [id number]/[facility] #: [id number]
[2016-10-30] MEDS: Levothyroxine TAB* 112 MCG TAB PO SCH (05:59)
[2016-10-30] MEDS: Mometasone/Formoter 100/5 MDI INH SCH (07:43)
[2016-10-30 08:08] VITALS: BP 129/79
[2016-10-30] MEDS: Sertraline* 100 MG TAB PO SCH (08:46)
[2016-10-30] MEDS: fluPHENAZine HCL TAB* 5 MG PO SCH (08:46)
[2016-10-30] MEDS: glipiZIDE TAB* 5 MG PO SCH (08:47)
[2016-10-30] MEDS: Rivaroxaban TAB(*) 20 MG TAB PO SCH (08:47)
[2016-10-30] MEDS: Furosemide TAB* 20 MG PO SCH (08:47)
[2016-10-30] MEDS: Omeprazole CAP* 20 MG PO SCH (08:47)
[2016-10-30] MEDS: Insulin LISPRO* 1 UNITS UNIT SUBCUT SCH ×2 (08:47→12:30)
[2016-11-13] MEDS ORDERED: Paliperidone SUSTENNA* 234 MG/1.5 ML IM SCH (15:00)
== END 2016-10-30 13:30 | disposition home or self-care (01) | DRG 885 ==
LOC: MED 15:07 → UNDOADMIN 15:07 → MED 15:59
PROVIDERS: ADMIT Internal Medicine; ATTEND Internal Medicine
DX: F25.9 Schizoaffective disorder, unspecified (principal); G93.40 Encephalopathy, unspecified; F05 Delirium due to known physiological condition; E66.2 Morbid (severe) obesity with alveolar hypoventilation; J44.1 Chronic obstructive pulmonary disease with (acute) exacerbation; E11.9 Type 2 diabetes mellitus without complications; J45.909 Unspecified asthma, uncomplicated; F41.9 Anxiety disorder, unspecified; F32.9 Major depressive disorder, single episode, unspecified; E03.9 Hypothyroidism, unspecified; G89.29 Other chronic pain; F17.210 Nicotine dependence, cigarettes, uncomplicated; I10 Essential (primary) hypertension; M54.9 Dorsalgia, unspecified; Z68.43 Body mass index [BMI] 50.0-59.9, adult; Z86.711 Personal history of pulmonary embolism; Z91.14 Patient's other noncompliance with medication regimen; Z98.49 Cataract extraction status, unspecified eye; Z79.4 Long term (current) use of insulin; Z86.718 Personal history of other venous thrombosis and embolism
CPT/HCPCS: 94640; 94760; 99406; A9270-GY

== ENCOUNTER 2016-11-24 10:08 | Inpatient (IN) | payer MEDICARE, MEDICAID ==
--- NOTE | 2016-11-24 11:11 | RAD ---
INDICATION: Altered mental status COMPARISON: Multiple previous chest x-rays most recent dated October 10, 2016 TECHNIQUE: Single AP portable view of the chest was obtained. FINDINGS: Image quality is compromised due to the relative inferiority of a portable chest x-ray. Similar to the previous chest x-ray there is mild cardiomegaly and appearance of engorgement of the pulmonary vasculature. The lungs are otherwise grossly clear. Visualized bones are normal for the patient's age. IMPRESSION: In the correct clinical setting these radiographic findings could be compatible with congestive heart failure.
[2016-11-24 11:16] LABS: PCO2 Arterial 54 mmHg (35-45)
[2016-11-24 11:44] LABS: Hematocrit 39 % (42-52); Hemoglobin 12.8 g/dl (14.0-18.0); Mean Corpuscular HGB Conc 33 g/dl (31-36); Mean Corpuscular Hemoglobin 29 pg (27-31); Mean Corpuscular Volume 87 fL (80-94); Mean Platelet Volume 7 um3 (7.4-10.4); Red Blood Count 4.46 10^6/ul (4.0-5.4); Red Cell Distribution Width 15 % (10.5-15); White Blood Count 8.9 10^3/ul (3.5-10.8)
--- NOTE | 2016-11-24 11:57 | RAD ---
HISTORY: Altered mental status COMPARISONS: July 19, 2016 TECHNIQUE: Multiple contiguous axial CT scans were obtained of the head without intravenous contrast. FINDINGS: HEMORRHAGE/INFARCT: There is no hemorrhage or acute infarct. MASSES/SHIFT: There is no mass or shift. EXTRA-AXIAL SPACES: There are no extra-axial fluid collections. SULCI AND VENTRICLES: The sulci and ventricles are normal in size and position for the patient's stated age. CEREBRUM: There are no focal parenchymal abnormalities. BRAINSTEM: There are no focal parenchymal abnormalities. CEREBELLUM: There are no focal parenchymal abnormalities. VESSELS: The vessels are grossly normal. PARANASAL SINUSES: There is mucosal thickening of the frontal sinuses, ethmoid air cells, and sphenoid sinus and right maxillary sinus. There are air-fluid levels within the right frontal sinus and sphenoid sinus. ORBITS: The orbits are unremarkable. BONES AND SOFT TISSUE: No bone or soft tissue abnormalities are noted. OTHER: None IMPRESSION: 1. NO ACUTE INTRACRANIAL PATHOLOGY. 2. EXTENSIVE SINUS MUCOSAL INFLAMMATORY DISEASE, WITH AN AIR-FLUID LEVELS IN THE FRONTAL AND SPHENOID SINUSES. IN THE CORRECT CLINICAL SETTING, THIS MAY REPRESENT ACUTE SINUSITIS
[2016-11-24 12:00] LABS: ALT 15 U/L (7-52); AST 13 U/L (13-39); Albumin 3.9 g/dL (3.2-5.2); Alkaline Phosphatase 63 U/L (34-104); Anion Gap 4 mmol/L (2-11); BUN/Creatinine Ratio 12.7 (8-20); Blood Urea Nitrogen 8 mg/dL (6-24); CO2 Carbon Dioxide 34 mmol/L (22-32); Calcium 8.8 mg/dL (8.6-10.3); Chloride 100 mmol/L (101-111); Creatine Kinase 53 U/L (10-223); EGFR African American 169.4 (>60); EGFR Non-African American 131.7 (>60); Globulin 2.9 g/dL (2-4); Glucose 161 mg/dL (70-100); Magnesium 1.7 mg/dL (1.9-2.7); Potassium 3.6 mmol/L (3.5-5.0); Sodium 138 mmol/L (133-145); Total Protein 6.8 g/dL (6.4-8.9)
[2016-11-24 12:25] LABS: Acetaminophen < 15 mcg/mL
[2016-11-24] MEDS ORDERED: Magnesium Oxide TAB* 400 MG PO ONE (12:27)
[2016-11-24 12:35] LABS: TSH (Thyroid Stimulating Horm) 2.26 mcIU/mL (0.34-5.60)
[2016-11-24 13:15] LABS: C Reactive Protein 16.14 mg/L (< 5.00)
[2016-11-24] MEDS ORDERED: Albuterol 2.5 MG/3 ML NEB.SOL* (0.083%) INH PRN (15:14)
[2016-11-24] MEDS ORDERED: Dextrose 50% Syringe 50 ML* 25 GM/50 ML SYRINGE IV PUSH PRN (15:16)
[2016-11-24] MEDS ORDERED: Magnesium Hydroxide LIQ* 30 ML UDC PO PRN (15:23)
[2016-11-24] MEDS ORDERED: Albuterol HFA INHALER* 8 gm MDI INH PRN (15:29)
[2016-11-24] MEDS ORDERED: Docusate CAP* 100 MG PO ONE (16:00)
--- NOTE | 2016-11-24 16:00 | PN ---
Progress Note - Progress Note Note: S: Mr. Mccallum is a 56 y.o. single, white male with a history of schizoaffective DO and recent pattern of recurrent hospitalizations for acute encephalopathy, related to cardio-pulmonary disfunction which is poorly controlled in the outpatient setting, who arrives at the ER with confusion and disorientation. On exam he presents with confabulatory responses to questions. For example, when asked about his apartment, he responds "I could move. Put me in the mail. Put a first-class stamp on me." The patient denies AH or VH and denies SI or HI. He is uncertain when his last dose of Invega Sustenna was. I left a message for Ramana Ponce RN ([phone]), his residential care officer at [facility]. O: Patient is morbidly obese, dishevelled white male sitting in chair to side of ER room, calm, cooperative, confused. Scores 17/30 on MMSE. A/P: Delirium: secondary to CHF/pulmonary disfunction: Patient is not able to live independently, as evidenced by his 5th hospitalization since June, with encephalopathy. Recommend jail care admission with referral to SNF setting. Continue psych meds and add fluphenazine 5mg PO BID for delirium. I will contact [facility] to see when his next dose of Invega Sustenna is. Recommend checking valproic acid level to check med compliance. Psych will follow.
[2016-11-24] MEDS: Magnesium Oxide TAB* 400 MG PO SCH (17:12)
[2016-11-24] MEDS: glipiZIDE TAB* 5 MG PO SCH (17:12)
[2016-11-24] MEDS: Insulin LISPRO* 1 UNITS UNIT SUBCUT SCH ×2 (17:26→21:48)
--- NOTE | 2016-11-24 17:38 | HP ---
CC: Dr. Garibay; Dr. Loyola * HISTORY AND PHYSICAL: DATE OF ADMISSION: 11/24/16 PRIMARY CARE PROVIDER: Dr. Loyola. CHIEF COMPLAINT: Altered mental status. HISTORY OF PRESENT ILLNESS: Andrea Mccallum is known to our service, 56-year- old male, with history of obesity, obstructive sleep apnea and schizophrenia who pushed his alert button today. The patient himself has a flight of ideas and his speech is very tangential. It is difficult to get the information from him of what exactly happened. Initially, he stated that he pushed his alert button because he was constipated, but then he told me that he had a bowel movement today in the morning. His speech is slightly pressured. Once again, flight of ideas. He has no complaints per se. At baseline, he is intermittently confused and is intermittently disoriented and he appears closer to his baseline apart from that once again, he appears to be in a mild manic-like state. He presented to the ED for evaluation. Medicine was asked to see the patient in admission for most likely jail admission since patient medically does not appear to have a condition that necessitates stay in the hospital. The psychiatrist, Dr. Garibay, saw the patient in consultation and deemed the patient not to be a good candidate for inpatient psychiatric evaluation. Due to his baseline mental status, the patient is not an appropriate candidate to go back home. He is going to be admitted to Medicine on jail status. PAST MEDICAL HISTORY: 1. Schizophrenia. 2. Diabetes type 2. 3. History of PE. 4. Morbid obesity. 5. History of COPD. 6. History of obstructive sleep apnea. 7. Obesity hypoventilation syndrome, on oxygen at night at 2 L. 8. Asthma. 9. Anxiety. 10. Depression. 11. Hypothyroidism. 12. Chronic back pain. 13. History of cataract surgery. 14. History of pneumonia and hospitalization for COPD exacerbations in the past. 15. Ongoing tobacco abuse. 16. Medical noncompliance. MEDICATIONS: At home include: 1. Acetaminophen on a p.r.n. basis. 2. Omeprazole 20 mg daily. 3. Zyprexa 20 mg at bedtime. 4. Nystatin topical powder 1 application b.i.d. 5. Levothyroxine 112 mcg daily. 6. Insulin lispro sliding scale. 7. Furosemide 20 mg daily. 8. Advair 1 puff b.i.d. 9. Albuterol 2 inhalations every 4 hours p.r.n. 10. Albuterol nebulizer on a p.r.n. basis. 11. Trazodone 50 mg at bedtime. 12. Glipizide 5 mg b.i.d. 13. Fluphenazine 2.5 mg b.i.d. 14. Simvastatin 40 mg at bedtime. 15. Zoloft 200 mg daily. 16. Xarelto 20 mg daily. ALLERGIES: FISH ALLERGY and HALOPERIDOL with unknown response. FAMILY HISTORY: Unobtainable from this poor historian and tangential male. SOCIAL HISTORY: The patient lives by himself. Apparently, he has a social sciences research scientist who visits him on a daily basis. He is telling me something about a locked medicine box. I believe he probably has locked medications and they are being dispensed to him on a daily basis. Unfortunately, I cannot confirm it right now and social sciences research scientist is currently evaluating the patient as we speak. REVIEW OF SYSTEMS: The patient complains of backache. He also complained of constipation, but he stated that he has a bowel movement today in the morning. He denies any chest pain or shortness of breath. He once again has many ideas during my evaluation. He is very unusually cheerful an hyperactive during my evaluation. All the remaining 14 systems were estimated to be reviewed with the patient and were otherwise negative. Once again, the patient is a confused male at baseline. PHYSICAL EXAMINATION GENERAL: The patient is a pleasant 56-year-old male who is oriented to self and his age. He notes that he is in the hospital. He cannot remember today's date which is not unusual for him. VITAL SIGNS: Blood pressure of 134/82, heart rate of 88 beats per minute, respiratory rate 14, oxygen saturation 89% on room air, temperature of 97.8. HEENT: Head atraumatic, normocephalic. Eyes: Pupils equal, reactive to light and accommodation. Oropharynx clear. Mucosa moist. NECK: Supple. No JVD. No bruits bilaterally. RESPIRATORY: Clear to auscultation bilaterally. CARDIOVASCULAR: Regular rate and rhythm. No murmur. ABDOMEN: Very protuberant, obese, soft, nontender. Bowel sounds present in all 4 quadrats. EXTREMITIES: There is trace pedal edema bilaterally. +2 pulses bilaterally. No clubbing or cyanosis. NEUROLOGIC: Speech clear. Cranial nerves II through XII grossly intact. Motor strength is 5/5 bilaterally. SKIN: No ecchymotic areas or rashes are noted. PSYCHIATRIC EVALUATION: Disorganized, tangential, speech pressured, flight of ideas. Otherwise, he is pleasant and cooperative. LABORATORY DATA: White blood cell count of 8.9, hemoglobin of 12.8, hematocrit of 39 and platelets 219,000. Blood gas showed pH of 7.37, PCO2 of 54, PO2 of 104, bicarb of 28, oxygen saturation of 98% that was obtained on 2 L of oxygen nasal cannula. Sodium of 138, potassium 3.9, chloride 100, carbon dioxide 34, BUN 8, creatinine 0.63. Liver function is unremarkable. Magnesium of 1.7. Portable chest x-ray shows impression: "In the correct clinical setting, the radiographic findings could be compatible with congestive heart failure." Brain CT, impression: "No acute intracranial pathology. Extensive sinus mucosal inflammatory disease with an air fluid level in the frontal and sphenoid sinuses. In the correct clinical setting, this may represent acute sinusitis." Urinalysis is pending at the time of dictation. ASSESSMENT AND PLAN: A 56-year-old male with schizophrenia who is not a good candidate to live in a community anymore due to his advanced psychiatric condition and baseline confusion and disorientation. Previously, he was evaluated and was awaiting for placement in a long-term facility due to psychiatric problem, but eventually he was deemed to be a good candidate for outpatient followup with state assigned social sciences research scientist. At this point, it appears that that plan failed again and the patient is being admitted right now for jail admission. I will continue his antipsychotic medications and ask Dr. Garibay to see the patient and continue seeing the patient in consultation. In regards to his obesity hypoventilation syndrome and obstructive sleep apnea, the patient is going to be continued on oxygen at his baseline at 2 L. In regards to history of bilateral leg edema, Lasix is going to be continued as previously ordered. For his diabetes, the patient is going to be continued on his medications as well as insulin sliding scale. His chronic obstructive pulmonary disease does not appear in exacerbation and his nebulizers and inhalers are going to be continued, as well as oxygen supplementation. For DVT prophylaxis, the patient has history of pulmonary embolism and is going to be continued on Xarelto as previously ordered. In regards to question of sinusitis, although the patient's CRP is only 16 and he does not have leukocytosis, I will place him on Augmentin for a total of 10 days to treat his sinusitis. Code status is full. The patient's surrogate is his daughter, Lucy Mccallum, and the patient's code status is full. TIME SPENT: Approximately 75 minutes was spent on admission of this patient, more than half that time was spent [id number] with the patient during the interview and physical exam. [id number]/[facility] #: [id number] EDER
--- NOTE | 2016-11-24 18:58 | ED ---
Hiro Costello Auryana, scribed for Jimmy Quezada MD on 11/24/16 at 1047 . Altered Mental Status - HPI Summary HPI Summary: 56 year old male presents to the ED with complains of confusion. He also reports that his "optics are off" - reports he has glasses. He also has a cough and mild abdominal pain. He denies any chest pain. He states that he lives alone with visiting nursing services. - History Of Current Complaint Chief Complaint: EDAltMentalStatus Stated Complaint: AMS Time Seen by Provider: 11/24/16 10:39 Hx Obtained From: Patient Onset/Duration: Still Present Timing: Constant Severity Initially: Mild Severity Currently: Mild Character: Confusion Associated Signs And Symptoms: Negative: Negative - cough, mild abd pain, confusion - Allergies/Home Medications Allergies/Adverse Reactions: Allergies Allergy/AdvReac Type Severity Reaction Status Date / Time Fish Allergy Allergy Unknown Verified 07/29/16 17:09 Reaction Details Haloperidol [From Haldol] Allergy Unknown Verified 07/29/16 17:09 Reaction Details PMH/Surg Hx/FS Hx/Imm Hx Endocrine/Hematology History: Reports: Hx Diabetes, Hx Thyroid Disease - hypo Cardiovascular History: Reports: Hx Embolism, Hx Hypercholesterolemia, Hx Hypertension Denies: Hx Pacemaker/ICD, Other Cardiovascular Problems/Disorders Respiratory History: Reports: Hx Asthma, Hx Chronic Obstructive Pulmonary Disease (COPD) - CPAP used in the past, O2 use at night, Hx Pneumonia, Other Respiratory Problems/Disorders - COPD, asthma GI History: Reports: Hx Gastroesophageal Reflux Disease Denies: Other GI Disorders History: Reports: Hx Kidney Stones - 18 YRS AGO, Other Problems/Disorders - kidney stones Musculoskeletal History: Reports: Hx Arthritis - BACK, Other Musculoskeletal History - chronis back pain Sensory History: Reports: Hx Cataracts - PRITI, Hx Contacts or Glasses, Hx Vision Problem - GLASSES Denies: Hx Hearing Aid Opthamlomology History: Reports: Hx Cataracts - PRITI, Hx Contacts or Glasses, Hx Vision Problem - GLASSES Neurological History: Denies: Other Neuro Impairments/Disorders Psychiatric History: Reports: Hx Anxiety - ON MEDS, Hx Depression - MEDS, Hx Inpatient Treatment, Hx Community Mental Health Tx, Hx Schizophrenia Denies: Hx Eating Disorder, Hx Panic Disorder, Hx of Violent Episodes Against Others - Surgical History Surgery Procedure, Year, and Place: Right eye cataract surgery Hx Anesthesia Reactions: No Infectious Disease History: Reports: Hx of Known/Suspected MRSA Denies: Traveled Outside the [place] in Last 30 Days - DECLINED - Family History Known Family History: Positive: Cardiac Disease - Father - [place], Diabetes - Father , Other - negative hyperthermia, negative adverse reaction to anesthesia - Social History Occupation: Disabled Lives: Alone - with visiting nursing services Alcohol Use: None Alcohol Amount: 12 beers a week Hx Substance Use: No Substance Use Type: Reports: None Substance Use Comment - Amount & Last Used: Reports using alcohol in the past, but not anymore. Hx Tobacco Use: Yes Smoking Status (MU): Heavy Every Day Tobacco Smoker Type: Cigarettes Amount Used/How Often: 2PPD, then 1PPD prior to admission which was less than 30 days ago Length of Time of Smoking/Using Tobacco: 30 years + Have You Smoked in the Last Year: Yes Review of Systems Constitutional: Negative Eyes: Negative ENT: Negative Cardiovascular: Negative Negative: Chest Pain Positive: Cough Positive: Abdominal Pain Genitourinary: Negative Musculoskeletal: Negative Skin: Negative Neurological: Other - confusion Psychological: Normal All Other Systems Reviewed And Are Negative: Yes Physical Exam - Summary Physical Exam Summary: VITAL SIGNS: Reviewed. GENERAL: ~Patient is a obese male who is lying comfortable in the stretcher. Patient is not in any acute respiratory distress. Poor hygiene. HEAD AND FACE: No signs of trauma. ~No ecchymosis, hematomas or skull depressions. No sinus tenderness. EYES: PERRLA, EOMI x 2, No injected conjunctiva, no nystagmus. No photophobia. EARS: Hearing grossly intact. Ear canals and tympanic membranes are within normal limits. MOUTH: Oropharynx within normal limits. NECK: Supple, trachea is midline, no adenopathy, no JVD, no carotid bruit, no c- spine tenderness, neck with full ROM. No meningeal signs, no Kernig's or brudzinskis signs. CHEST: Symmetric, no tenderness at palpation LUNGS: Clear to auscultation bilaterally. No wheezing or crackles. CVS: Regular rate and rhythm, S1 and S2 present, no murmurs or gallops appreciated. ABDOMEN: Soft, non-tender. No signs of distention. No rebound no guarding, and no masses palpated. Bowel sounds are normal. EXTREMITIES: FROM in all major joints, no edema, no cyanosis or clubbing. NEURO: Alert and oriented x 3. No acute neurological deficits. Speech is normal and follows commands. SKIN: Dry and warm Triage Information Reviewed: Yes Vital Signs On Initial Exam: Initial Vitals BP 136/74 11/24/16 10:16 Vital Signs Reviewed: Yes Diagnostics - Vital Signs Vital Signs Temp Pulse Resp BP Pulse Ox 11/24/16 12:00 88 89 11/24/16 11:30 85 134/82 95 11/24/16 11:00 84 115/68 96 11/24/16 10:39 97.8 F 83 24 148/75 98 11/24/16 10:30 85 23 148/75 98 11/24/16 10:18 89 97 11/24/16 10:16 136/74 - Laboratory Lab Results: Lab Results 11/24/16 11/24/16 11/24/16 Range/Units 11:10 11:31 11:31 WBC 8.9 (3.5-10.8) 10^3/ul RBC 4.46 (4.0-5.4) 10^6/ul Hgb 12.8 L (14.0-18.0) g/dl Hct 39 L (42-52) % MCV 87 (80-94) fL MCH 29 (27-31) pg MCHC 33 (31-36) g/dl RDW 15 (10.5-15) % Plt Count 219 (150-450) 10^3/ul MPV 7 L (7.4-10.4) um3 Neut % (Auto) 80.3 (38-83) % Lymph % (Auto) 10.8 L (25-47) % [place] % (Auto) 5.5 (1-9) % Eos % (Auto) 1.6 (0-6) % Baso % (Auto) 1.8 (0-2) % Absolute Neuts (auto) 7.1 (1.5-7.7) 10^3/ul Absolute Lymphs (auto) 1.0 (1.0-4.8) 10^3/ul Absolute Monos (auto) 0.5 (0-0.8) 10^3/ul Absolute Eos (auto) 0.1 (0-0.6) 10^3/ul Absolute Basos (auto) 0.2 (0-0.2) 10^3/ul Absolute Nucleated RBC 0 10^3/ul Nucleated RBC % 0 Patient Temperature Not Reportable ABG pH 7.37 (7.35-7.45) ABG pCO2 54 H (35-45) mmHg ABG pO2 104 H (80-100) mmHg ABG HCO3 28.5 (19-31) mmol/L ABG O2 Saturation 98.7 H (95-98) % ABG Base Excess 4.7 H (-2.0-2.0) Respiration Rate Not Reportable O2 Delivery Device 2lnc Ventilator Type Not Reportable Vent Mode Not Reportable FiO2 Not Reportable Inspiratory Time Not Reportable PEEP Not Reportable Pressure Support Not Reportable Pressure Control Not Reportable EPAP Not Reportable IPAP Not Reportable BiPAP Not Reportable Sodium 138 (133-145) mmol/L Potassium 3.6 (3.5-5.0) mmol/L Chloride 100 L (101-111) mmol/L Carbon Dioxide 34 H (22-32) mmol/L Anion Gap 4 (2-11) mmol/L BUN 8 (6-24) mg/dL Creatinine 0.63 L (0.67-1.17) mg/dL Est GFR ( Amer) 169.4 (>60) Est GFR (Non-Af Amer) 131.7 (>60) BUN/Creatinine Ratio 12.7 (8-20) Glucose 161 H (70-100) mg/dL Lactic Acid (0.5-2.0) mmol/L Calcium 8.8 (8.6-10.3) mg/dL Magnesium 1.7 L (1.9-2.7) mg/dL Total Bilirubin 0.40 (0.2-1.0) mg/dL AST 13 (13-39) U/L ALT 15 (7-52) U/L Alkaline Phosphatase 63 (34-104) U/L Ammonia (16-53) mol/L Total Creatine Kinase 53 (10-223) U/L Troponin I 0.00 (<0.04) ng/mL C-Reactive Protein 16.14 H (< 5.00) mg/L Total Protein 6.8 (6.4-8.9) g/dL Albumin 3.9 (3.2-5.2) g/dL Globulin 2.9 (2-4) g/dL Albumin/Globulin Ratio 1.3 (1-3) TSH 2.26 (0.34-5.60) mcIU/mL Acetaminophen < 15 mcg/mL 11/24/16 11/24/16 Range/Units 11:31 11:31 WBC (3.5-10.8) 10^3/ul RBC (4.0-5.4) 10^6/ul Hgb (14.0-18.0) g/dl Hct (42-52) % MCV (80-94) fL MCH (27-31) pg MCHC (31-36) g/dl RDW (10.5-15) % Plt Count (150-450) 10^3/ul MPV (7.4-10.4) um3 Neut % (Auto) (38-83) % Lymph % (Auto) (25-47) % [place] % (Auto) (1-9) % Eos % (Auto) (0-6) % Baso % (Auto) (0-2) % Absolute Neuts (auto) (1.5-7.7) 10^3/ul Absolute Lymphs (auto) (1.0-4.8) 10^3/ul Absolute Monos (auto) (0-0.8) 10^3/ul Absolute Eos (auto) (0-0.6) 10^3/ul Absolute Basos (auto) (0-0.2) 10^3/ul Absolute Nucleated RBC 10^3/ul Nucleated RBC % Patient Temperature ABG pH (7.35-7.45) ABG pCO2 (35-45) mmHg ABG pO2 (80-100) mmHg ABG HCO3 (19-31) mmol/L ABG O2 Saturation (95-98) % ABG Base Excess (-2.0-2.0) Respiration Rate O2 Delivery Device Ventilator Type Vent Mode FiO2 Inspiratory Time PEEP Pressure Support Pressure Control EPAP IPAP BiPAP Sodium (133-145) mmol/L Potassium (3.5-5.0) mmol/L Chloride (101-111) mmol/L Carbon Dioxide (22-32) mmol/L Anion Gap (2-11) mmol/L BUN (6-24) mg/dL Creatinine (0.67-1.17) mg/dL Est GFR ( Amer) (>60) Est GFR (Non-Af Amer) (>60) BUN/Creatinine Ratio (8-20) Glucose (70-100) mg/dL Lactic Acid 0.8 (0.5-2.0) mmol/L Calcium (8.6-10.3) mg/dL Magnesium (1.9-2.7) mg/dL Total Bilirubin (0.2-1.0) mg/dL AST (13-39) U/L ALT (7-52) U/L Alkaline Phosphatase (34-104) U/L Ammonia 50 (16-53) mol/L Total Creatine Kinase (10-223) U/L Troponin I (<0.04) ng/mL C-Reactive Protein (< 5.00) mg/L Total Protein (6.4-8.9) g/dL Albumin (3.2-5.2) g/dL Globulin (2-4) g/dL Albumin/Globulin Ratio (1-3) TSH (0.34-5.60) mcIU/mL Acetaminophen mcg/mL Result Diagrams: 11/24/16 11:31 11/24/16 11:31 Lab Statement: Any lab studies that have been ordered have been reviewed, and results considered in the medical decision making process. - Radiology CXR Xray Interpretation: Positive (See Comments) Radiology Interpretation Completed By: Radiologist - CT BRAIN CT Interpretation: Positive (See Comments) - IMPRESSION: 1. NO ACUTE INTRACRANIAL PATHOLOGY. 2. EXTENSIVE SINUS MUCOSAL INFLAMMATORY DISEASE, WITH AN AIR-FLUID LEVELS IN THE FRONTAL AND SPHENOID SINUSES. IN THE CORRECT CLINICAL SETTING, THIS MAY REPRESENT ACUTE SINUSITIS CT Interpretation Completed By: Radiologist - EKG 11:17 EKG Interpretation: Ventricular pace, 81 bpm Altered Mental Statu Course/Dx - Course Assessment/Plan: 56 year old male presents to the ED with complains of confusion. He also reports that his "optics are off" - reports he has glasses. He also has a cough and mild abdominal pain. He denies any chest pain. He states that he lives alone with visiting nursing services. Test results WNL except slight chronic anemia. ABG - hypercapnia. Chloride 100, CO2 34, Mg 1.7, CRP 16.1. CXR IMPRESSION: In the correct clinical setting these radiographic findings could be compatible with congestive heart failure. HEAD CT - IMPRESSION: 1. NO ACUTE INTRACRANIAL PATHOLOGY. 2. EXTENSIVE SINUS MUCOSAL INFLAMMATORY DISEASE, WITH AN AIR-FLUID LEVELS IN THE FRONTAL AND SPHENOID SINUSES. IN THE CORRECT CLINICAL SETTING, THIS MAY REPRESENT ACUTE SINUSITIS. Patient still has confusion with AMS thus I spoke to Dr. Degroot. This is his baseline. Therefore, she did a consult and requested a MHE. I discussed with Dr. Miles (psychiatric) who came and examined the patient- believes patient needs to be admitted to medical team because he has no psychiatric issues prior to today. Patient is more encephalopathic. I discussed with Dr. Miles and Dr. Degroot and Dr. Degroot decided to admit. Patient is hemodynamically stable and A &O x3. - Diagnoses Differential Diagnosis/HQI/PQRI: Other - Confusion, AMS, Psychosis Discharge Diagnoses: Encephalopathy - Provider Notifications Discussed Care Of Patient With: Lupis Degroot - agrees to admit Time Discussed With Above Provider: 11:30 Discharge - Discharge Plan Condition: Stable Disposition: ADMITTED TO [facility] The documentation as recorded by the Hiro lynne Auryana accurately reflects the service I personally performed and the decisions made by me, Jimmy Quezada MD.
[2016-11-24] MEDS: Mometasone/Formoter 200/5 MDI INH SCH (20:00)
[2016-11-24] MEDS: Atorvastatin* 20 MG TAB PO SCH (21:33)
[2016-11-24] MEDS: Nystatin TOP POWDER* 15 GM BTL TOPICAL SCH (21:33)
[2016-11-24] MEDS: OLANzapine TAB* 10 MG PO SCH (21:33)
[2016-11-24] MEDS: fluPHENAZine HCL TAB* 5 MG PO SCH (21:34)
[2016-11-24] MEDS: Amoxicillin/Clavulanate TAB* 875 MG PO SCH (21:34)
[2016-11-24] MEDS ORDERED: Heparin VIAL(*) 5000 UNITS/ML VIAL (FIVE THOUSAND) SUBCUT SCH (22:00)
[2016-11-25] MEDS: Levothyroxine TAB* 112 MCG TAB PO SCH (05:41)
[2016-11-25 07:49] LABS: Valproic Acid < 13.0 mcg/mL (50-100)
[2016-11-25] MEDS: Amoxicillin/Clavulanate TAB* 875 MG PO SCH ×2 (08:31→20:58)
[2016-11-25] MEDS: Sertraline* 100 MG TAB PO SCH (08:31)
[2016-11-25] MEDS: fluPHENAZine HCL TAB* 5 MG PO SCH ×2 (08:32→20:58)
[2016-11-25] MEDS: glipiZIDE TAB* 5 MG PO SCH ×2 (08:32→17:09)
[2016-11-25] MEDS: Rivaroxaban TAB(*) 20 MG TAB PO SCH (08:32)
[2016-11-25] MEDS: Furosemide TAB* 20 MG PO SCH (08:32)
[2016-11-25] MEDS: Insulin LISPRO* 1 UNITS UNIT SUBCUT SCH ×4 (08:32→21:00)
[2016-11-25] MEDS: Omeprazole CAP* 20 MG PO SCH (08:32)
[2016-11-25] MEDS: Magnesium Oxide TAB* 400 MG PO SCH (08:32)
[2016-11-25] MEDS: Nystatin TOP POWDER* 15 GM BTL TOPICAL SCH ×2 (08:34→20:59)
[2016-11-25] MEDS: Mometasone/Formoter 200/5 MDI INH SCH ×2 (08:36→20:13)
[2016-11-25] MEDS: fluPHENAZine HCL TAB* 5 MG PO PRN (15:24)
[2016-11-25] MEDS: Atorvastatin* 20 MG TAB PO SCH (20:58)
[2016-11-25] MEDS: OLANzapine TAB* 10 MG PO SCH (20:59)
[2016-11-26] MEDS: traZODone TAB* 50 MG TAB PO PRN ×2 (01:42→21:53)
[2016-11-26] MEDS: fluPHENAZine HCL TAB* 5 MG PO PRN ×2 (01:43→08:35)
[2016-11-26] MEDS: Levothyroxine TAB* 112 MCG TAB PO SCH (06:16)
[2016-11-26] MEDS: Mometasone/Formoter 200/5 MDI INH SCH ×2 (08:19→20:40)
[2016-11-26] MEDS: Furosemide TAB* 20 MG PO SCH (08:33)
[2016-11-26] MEDS: Magnesium Oxide TAB* 400 MG PO SCH (08:33)
[2016-11-26] MEDS: fluPHENAZine HCL TAB* 5 MG PO SCH ×2 (08:33→21:53)
[2016-11-26] MEDS: Amoxicillin/Clavulanate TAB* 875 MG PO SCH ×2 (08:34→21:51)
[2016-11-26] MEDS: Omeprazole CAP* 20 MG PO SCH (08:34)
[2016-11-26] MEDS: Sertraline* 100 MG TAB PO SCH (08:34)
[2016-11-26] MEDS: glipiZIDE TAB* 5 MG PO SCH ×2 (08:34→17:29)
[2016-11-26] MEDS: Rivaroxaban TAB(*) 20 MG TAB PO SCH (08:35)
[2016-11-26] MEDS: Insulin LISPRO* 1 UNITS UNIT SUBCUT SCH ×4 (08:35→21:48)
[2016-11-26] MEDS: Nystatin TOP POWDER* 15 GM BTL TOPICAL SCH ×2 (08:37→21:58)
[2016-11-26] MEDS: Atorvastatin* 20 MG TAB PO SCH (21:51)
[2016-11-26] MEDS: OLANzapine TAB* 10 MG PO SCH (21:52)
[2016-11-27] MEDS: fluPHENAZine HCL TAB* 5 MG PO PRN (00:57)
[2016-11-27] MEDS: Levothyroxine TAB* 112 MCG TAB PO SCH (06:36)
[2016-11-27] MEDS: Amoxicillin/Clavulanate TAB* 875 MG PO SCH ×2 (08:36→21:32)
[2016-11-27] MEDS: Furosemide TAB* 20 MG PO SCH (08:37)
[2016-11-27] MEDS: fluPHENAZine HCL TAB* 5 MG PO SCH ×2 (08:37→21:31)
[2016-11-27] MEDS: Magnesium Oxide TAB* 400 MG PO SCH (08:37)
[2016-11-27] MEDS: Rivaroxaban TAB(*) 20 MG TAB PO SCH (08:37)
[2016-11-27] MEDS: Omeprazole CAP* 20 MG PO SCH (08:37)
[2016-11-27] MEDS: Sertraline* 100 MG TAB PO SCH (08:37)
[2016-11-27] MEDS: glipiZIDE TAB* 5 MG PO SCH ×2 (08:37→17:31)
[2016-11-27] MEDS: Insulin LISPRO* 1 UNITS UNIT SUBCUT SCH ×4 (08:38→21:18)
[2016-11-27] MEDS: Mometasone/Formoter 200/5 MDI INH SCH ×2 (08:56→21:32)
[2016-11-27] MEDS: Nystatin TOP POWDER* 15 GM BTL TOPICAL SCH ×2 (09:00→21:36)
--- NOTE | 2016-11-27 11:20 | PN ---
Hospitalist Progress Note Patient seen this morning. Remains very disorganized, speech is inappropriate. Was laying on the floor on my arrival to the room. The patient will require placement in a facility as he is unable to take care of himself as evidenced by the patients multiple admissions.
--- NOTE | 2016-11-27 14:56 | CONSULT ---
Identification - Patient Identification Reason for Psychiatric Consultation: Incapacitating Symptoms -: Patient is a 56 year old, M admitted on 11/24/16. - MHU Identification Employment Status: Disabled Hx Psychiatric Hospitalization: Yes History - Objective HPI: Mr. Mccallum is found in his room, sitting in a chair towards the wall. The TV is on but he is not attending to it. The patient is disheveled and his speech is disorganized with word salad. He has no understanding of why he's at the hospital. Staff reports that his behavior has been mostly cooperative today. I received a voicemail message from his critical care unit manager at [facility], Ramana Ponce ( [phone]) who indicates that Kory's last Invega Sustenna, 156mg IM dose was administered on , November 09 to the left deltoid. His next injection is not due until December 07. Lab Results: Laboratory Tests 11/24/16 11/24/16 11/25/16 17:14 20:49 07:27 POC Glucose (mg/dL) 205 H 158 H 159 H 11/25/16 11/25/16 11/25/16 10:54 16:54 20:03 POC Glucose (mg/dL) 188 H 147 H 130 H 11/26/16 11/26/16 11/26/16 01:31 07:10 11:18 POC Glucose (mg/dL) 153 H 178 H 130 H 11/26/16 11/26/16 11/27/16 16:07 20:42 07:40 POC Glucose (mg/dL) 144 H 132 H 159 H 11/27/16 11:12 POC Glucose (mg/dL) 124 H Exam Appearance: Obese Hygiene: Dirty Grooming: Disheveled Psychomotor Activities: Normal Exhibits Abnormal Movement: No Attitude and Relatedness: Psychotically Related Eye Contact: Poor - Speech Quality: Unpressured Latencies: Normal Quantity: Appropriate Patient's Decription of Mood: "Good" Observed Affect: Fair Affect Consistent with: Euthymia Patient's Thought Process: Disorganized, Loose Associations Thought Content: No Passive Wish, No Suicidal Planning, No Homicidal Ideation, No Paranoid Ideation Experiencing Hallucinations: Yes Type of Hallucinations: Visual: No, Auditory: Yes, Command: No Level of Consciousness: Alert Orientation: No Intact, No Orientated to Time, No Orientated to Place, No Orientated to Person Impulse Control: Poor Insight and Judgement: Impaired Impression - Impression Clinical Impression: 56 y.o. single, white male with a history of schizoaffective DO and recent pattern of recurrent hospitalizations for acute encephalopathy, related to cardio-pulmonary disfunction which is poorly controlled in the outpatient setting, who arrives via ambulance with symptoms of confusion and disorientation. Inpatient DSM-IV Dx: Delirium secondary to respiratory insufficiency Merits Inpatient Hospitalization: No Plan - Treatment Plan Treatment Plan: The patient is receiving fluphenazine 2.5mg PO BID for encephalopathy. This is in addition to the olanzapine 20mg PO qhs and paliperidone Sustenna 156mg IM q4wks (next dose 12/07/16). This is the patient's 5th medical admission of 2017 and it is clear that he cannot care for himself in the community. We recommend SNF placement for his safety. Psychiatry will continue to follow. Continued Medication Management: Continue Outpt Medication Medications: Current Medications Acetaminophen (Tylenol Tab*) 650 mg PO Q6H PRN PRN Reason: PAIN Albuterol (Ventolin 2.5 Mg/3 Ml Neb.Manisha*) 2.5 mg INH Q4H PRN PRN Reason: SHORTNESS OF BREATH Albuterol (Ventolin Hfa Inhaler*) 2 puff INH Q4H PRN PRN Reason: SHORTNESS OF BREATH Amoxicillin/Clavulanate Potassium (Augmentin Tab*) 875 mg PO BID [facility] Last Admin: 11/27/16 08:36 Dose: 875 mg Atorvastatin Calcium (Lipitor*) 20 mg PO BEDTIME [facility] Last Admin: 11/26/16 21:51 Dose: 20 mg Dextrose (D50w Syringe 50 Ml*) 12.5 gm IV PUSH .FOR FS < 60 - SS PRN PRN Reason: FS < 60 Fluphenazine HCl (Prolixin Tab*) 2.5 mg PO BID [facility] Last Admin: 11/27/16 08:37 Dose: 2.5 mg Fluphenazine HCl (Prolixin Tab*) 5 mg PO Q6H PRN PRN Reason: Agitation/confusion Last Admin: 11/27/16 00:57 Dose: 5 mg Furosemide (Lasix Tab*) 20 mg PO DAILY [facility] Last Admin: 11/27/16 08:37 Dose: 20 mg Glipizide (Glucotrol Tab*) 5 mg PO BID AC [facility] Last Admin: 11/27/16 08:37 Dose: 5 mg Insulin Human Lispro (Humalog*) 0 units SUBCUT ACHS NORA PRN Reason: Protocol Last Admin: 11/27/16 11:14 Dose: Not Given Levothyroxine Sodium (Synthroid Tab*) 112 mcg PO 0600 [facility] Last Admin: 11/27/16 06:36 Dose: 112 mcg Magnesium Hydroxide (Milk Of Magnesia Liq*) 30 ml PO Q6H PRN PRN Reason: CONSTIPATION Magnesium Oxide (Magox 400 Tab*) 800 mg PO DAILY [facility] Last Admin: 11/27/16 08:37 Dose: 800 mg Mometasone Furoate/Formoterol Fumar (Dulera 200/5 Mdi*) 2 puff INH BID [facility] Last Admin: 11/27/16 08:56 Dose: 2 puff Nystatin (Nystatin Top Powder*) 1 applic TOPICAL BID [facility] Last Admin: 11/27/16 09:00 Dose: Not Given Olanzapine (Zyprexa Tab*) 20 mg PO BEDTIME [facility] Last Admin: 11/26/16 21:52 Dose: 20 mg Omeprazole (Prilosec Cap*) 20 mg PO DAILY@0730 [facility] Last Admin: 11/27/16 08:37 Dose: 20 mg Rivaroxaban (Xarelto (*)) 20 mg PO DAILY [facility] Last Admin: 11/27/16 08:37 Dose: 20 mg Sertraline HCl (Zoloft*) 200 mg PO DAILY [facility] Last Admin: 11/27/16 08:37 Dose: 200 mg Trazodone HCl (Desyrel Tab*) 50 mg PO BEDTIME PRN PRN Reason: SLEEP Last Admin: 11/26/16 21:53 Dose: 50 mg
[2016-11-27] MEDS: OLANzapine TAB* 10 MG PO SCH (21:32)
[2016-11-27] MEDS: Atorvastatin* 20 MG TAB PO SCH (21:32)
[2016-11-28] MEDS: Levothyroxine TAB* 112 MCG TAB PO SCH (05:43)
[2016-11-28] MEDS: Mometasone/Formoter 200/5 MDI INH SCH ×2 (07:47→19:42)
[2016-11-28] MEDS: Magnesium Oxide TAB* 400 MG PO SCH (09:11)
[2016-11-28] MEDS: Nystatin TOP POWDER* 15 GM BTL TOPICAL SCH ×2 (09:11→20:54)
[2016-11-28] MEDS: fluPHENAZine HCL TAB* 5 MG PO SCH ×2 (09:11→20:57)
[2016-11-28] MEDS: Amoxicillin/Clavulanate TAB* 875 MG PO SCH ×2 (09:12→20:56)
[2016-11-28] MEDS: Sertraline* 100 MG TAB PO SCH (09:12)
[2016-11-28] MEDS: Rivaroxaban TAB(*) 20 MG TAB PO SCH (09:12)
[2016-11-28] MEDS: Omeprazole CAP* 20 MG PO SCH (09:12)
[2016-11-28] MEDS: Furosemide TAB* 20 MG PO SCH (09:12)
[2016-11-28] MEDS: glipiZIDE TAB* 5 MG PO SCH ×2 (09:12→18:52)
[2016-11-28] MEDS: Insulin LISPRO* 1 UNITS UNIT SUBCUT SCH ×4 (09:15→21:08)
[2016-11-28] MEDS: Divalproex DR TAB(*) 500 MG PO SCH (20:56)
[2016-11-28] MEDS: Atorvastatin* 20 MG TAB PO SCH (20:58)
[2016-11-28] MEDS: OLANzapine TAB* 10 MG PO SCH (20:58)
[2016-11-29] MEDS: Levothyroxine TAB* 112 MCG TAB PO SCH (06:07)
[2016-11-29] MEDS: Mometasone/Formoter 200/5 MDI INH SCH ×2 (08:00→19:00)
[2016-11-29] MEDS: Insulin LISPRO* 1 UNITS UNIT SUBCUT SCH ×4 (08:08→21:24)
[2016-11-29] MEDS: Divalproex DR TAB(*) 500 MG PO SCH ×2 (08:09→20:41)
[2016-11-29] MEDS: glipiZIDE TAB* 5 MG PO SCH ×2 (08:09→17:11)
[2016-11-29] MEDS: Furosemide TAB* 20 MG PO SCH (08:09)
[2016-11-29] MEDS: Sertraline* 100 MG TAB PO SCH (08:09)
[2016-11-29] MEDS: Omeprazole CAP* 20 MG PO SCH (08:09)
[2016-11-29] MEDS: Amoxicillin/Clavulanate TAB* 875 MG PO SCH ×2 (08:10→20:41)
[2016-11-29] MEDS: Magnesium Oxide TAB* 400 MG PO SCH (08:10)
[2016-11-29] MEDS: fluPHENAZine HCL TAB* 5 MG PO SCH ×2 (08:10→20:41)
[2016-11-29] MEDS: Nystatin TOP POWDER* 15 GM BTL TOPICAL SCH ×2 (09:59→21:24)
[2016-11-29] MEDS: Rivaroxaban TAB(*) 20 MG TAB PO SCH (10:02)
--- NOTE | 2016-11-29 11:02 | CONSULT ---
Identification - Patient Identification Reason for Psychiatric Consultation: Incapacitating Symptoms -: Patient is a 56 year old, M admitted on 11/24/16. - MHU Identification Employment Status: Disabled Hx Psychiatric Hospitalization: Yes History - Objective HPI: Mr. Mccallum is found in his room, sitting in a chair with no clothes on, appearing dishevelled and confused. His speech is rambling and incoherent, from topic to topic without prompting. He is not oriented to person, place or situation. Staff notes indicate that he can be disruptive and uncooperative at times. Lab Results: Laboratory Tests 11/24/16 11/24/16 11/25/16 17:14 20:49 07:27 POC Glucose (mg/dL) 205 H 158 H 159 H 11/25/16 11/25/16 11/25/16 10:54 16:54 20:03 POC Glucose (mg/dL) 188 H 147 H 130 H 11/26/16 11/26/16 11/26/16 01:31 07:10 11:18 POC Glucose (mg/dL) 153 H 178 H 130 H 11/26/16 11/26/16 11/27/16 16:07 20:42 07:40 POC Glucose (mg/dL) 144 H 132 H 159 H 11/27/16 11/27/16 11/27/16 11:12 17:27 21:14 POC Glucose (mg/dL) 124 H 124 H 121 H 11/28/16 11/28/16 11/28/16 08:11 12:55 16:45 POC Glucose (mg/dL) 145 H 104 158 H 11/28/16 11/29/16 21:04 07:55 POC Glucose (mg/dL) 155 H 152 H Exam Appearance: Obese Hygiene: Dirty Grooming: Disheveled Psychomotor Activities: Normal Exhibits Abnormal Movement: No Attitude and Relatedness: Psychotically Related Eye Contact: Poor - Speech Quality: Unpressured Latencies: Normal Quantity: Appropriate Patient's Decription of Mood: "Good" Observed Affect: Fair Affect Consistent with: Euthymia Patient's Thought Process: Disorganized, Loose Associations Thought Content: No Passive Wish, No Suicidal Planning, No Homicidal Ideation, No Paranoid Ideation Experiencing Hallucinations: Yes Type of Hallucinations: Visual: No, Auditory: Yes, Command: No Level of Consciousness: Alert Orientation: No Intact, No Orientated to Time, No Orientated to Place, No Orientated to Person Impulse Control: Poor Insight and Judgement: Impaired Impression - Impression Clinical Impression: 56 y.o. single, white male with a history of schizoaffective DO and recent pattern of recurrent hospitalizations for acute encephalopathy, related to cardio-pulmonary disfunction which is poorly controlled in the outpatient setting, who arrives via ambulance with symptoms of confusion and disorientation. Inpatient DSM-IV Dx: Delirium secondary to cardio-pulmonary disfunction. Merits Inpatient Hospitalization: No Plan - Treatment Plan Treatment Plan: The patient is receiving fluphenazine 2.5mg PO BID for encephalopathy. This should be increased to 5mg PO BID and we will monitor for signs of orthostasis. He is also receiving Depakote 1000mg PO BID, olanzapine 20mg PO qhs, sertraline 100mg PO qday and paliperidone Sustenna 156mg IM q4wks (next dose ). This is the patient's 5th medical admission of 2016 and it is clear that he cannot care for himself in the community. We recommend SNF placement for his safety. Psychiatry will continue to follow. Continued Medication Management: Different Medication Medications: Current Medications Acetaminophen (Tylenol Tab*) 650 mg PO Q6H PRN PRN Reason: PAIN Albuterol (Ventolin 2.5 Mg/3 Ml Neb.Manisha*) 2.5 mg INH Q4H PRN PRN Reason: SHORTNESS OF BREATH Albuterol (Ventolin Hfa Inhaler*) 2 puff INH Q4H PRN PRN Reason: SHORTNESS OF BREATH Amoxicillin/Clavulanate Potassium (Augmentin Tab*) 875 mg PO BID [facility] Last Admin: 11/29/16 08:10 Dose: 875 mg Atorvastatin Calcium (Lipitor*) 20 mg PO BEDTIME [facility] Last Admin: 11/28/16 20:58 Dose: 20 mg Dextrose (D50w Syringe 50 Ml*) 12.5 gm IV PUSH .FOR FS < 60 - SS PRN PRN Reason: FS < 60 Divalproex Sodium (Depakote Dr Tab(*)) 1,000 mg PO BID [facility] Last Admin: 11/29/16 08:09 Dose: 1,000 mg Fluphenazine HCl (Prolixin Tab*) 2.5 mg PO BID [facility] Last Admin: 11/29/16 08:10 Dose: 2.5 mg Fluphenazine HCl (Prolixin Tab*) 5 mg PO Q6H PRN PRN Reason: Agitation/confusion Last Admin: 11/27/16 00:57 Dose: 5 mg Furosemide (Lasix Tab*) 20 mg PO DAILY [facility] Last Admin: 11/29/16 08:09 Dose: 20 mg Glipizide (Glucotrol Tab*) 5 mg PO BID AC [facility] Last Admin: 11/29/16 08:09 Dose: 5 mg Insulin Human Lispro (Humalog*) 0 units SUBCUT ACHS [facility] PRN Reason: Protocol Last Admin: 11/29/16 08:08 Dose: 2 unit Levothyroxine Sodium (Synthroid Tab*) 112 mcg PO 0600 [facility] Last Admin: 11/29/16 06:07 Dose: 112 mcg Magnesium Hydroxide (Milk Of Magnesia Liq*) 30 ml PO Q6H PRN PRN Reason: CONSTIPATION Magnesium Oxide (Magox 400 Tab*) 800 mg PO DAILY [facility] Last Admin: 11/29/16 08:10 Dose: 800 mg Mometasone Furoate/Formoterol Fumar (Dulera 200/5 Mdi*) 2 puff INH BID [facility] Last Admin: 11/29/16 08:00 Dose: Not Given Nystatin (Nystatin Top Powder*) 1 applic TOPICAL BID [facility] Last Admin: 11/29/16 09:59 Dose: 1 applic Olanzapine (Zyprexa Tab*) 20 mg PO BEDTIME [facility] Last Admin: 11/28/16 20:58 Dose: 20 mg Omeprazole (Prilosec Cap*) 20 mg PO DAILY@0730 [facility] Last Admin: 11/29/16 08:09 Dose: 20 mg Rivaroxaban (Xarelto (*)) 20 mg PO DAILY [facility] Last Admin: 11/29/16 10:02 Dose: 20 mg Sertraline HCl (Zoloft*) 100 mg PO DAILY [facility] Last Admin: 11/29/16 08:09 Dose: 100 mg Trazodone HCl (Desyrel Tab*) 50 mg PO BEDTIME PRN PRN Reason: SLEEP Last Admin: 11/26/16 21:53 Dose: 50 mg
[2016-11-29] MEDS: Atorvastatin* 20 MG TAB PO SCH (20:41)
[2016-11-29] MEDS: OLANzapine TAB* 10 MG PO SCH (21:24)
[2016-11-30] MEDS: Levothyroxine TAB* 112 MCG TAB PO SCH (05:33)
[2016-11-30] MEDS: Mometasone/Formoter 200/5 MDI INH SCH ×2 (07:33→19:18)
[2016-11-30] MEDS: Nystatin TOP POWDER* 15 GM BTL TOPICAL SCH (09:47)
[2016-11-30] MEDS: Magnesium Oxide TAB* 400 MG PO SCH (09:48)
[2016-11-30] MEDS: Divalproex DR TAB(*) 500 MG PO SCH ×2 (09:48→22:10)
[2016-11-30] MEDS: Amoxicillin/Clavulanate TAB* 875 MG PO SCH ×2 (09:48→22:09)
[2016-11-30] MEDS: Omeprazole CAP* 20 MG PO SCH (09:48)
[2016-11-30] MEDS: glipiZIDE TAB* 5 MG PO SCH ×2 (09:49→17:06)
[2016-11-30] MEDS: Furosemide TAB* 20 MG PO SCH (09:49)
[2016-11-30] MEDS: fluPHENAZine HCL TAB* 5 MG PO SCH ×2 (09:49→22:10)
[2016-11-30] MEDS: Sertraline* 100 MG TAB PO SCH (09:49)
[2016-11-30] MEDS: Rivaroxaban TAB(*) 20 MG TAB PO SCH (09:49)
[2016-11-30] MEDS: Insulin LISPRO* 1 UNITS UNIT SUBCUT SCH ×4 (09:49→23:11)
[2016-11-30] MEDS: Atorvastatin* 20 MG TAB PO SCH (22:09)
[2016-11-30] MEDS: OLANzapine TAB* 10 MG PO SCH (22:10)
[2016-11-30] MEDS: traZODone TAB* 50 MG TAB PO PRN (22:22)
[2016-12-01] MEDS: Nystatin TOP POWDER* 15 GM BTL TOPICAL SCH ×3 (04:24→23:07)
[2016-12-01] MEDS: Levothyroxine TAB* 112 MCG TAB PO SCH (05:59)
[2016-12-01] MEDS: Divalproex DR TAB(*) 500 MG PO SCH ×2 (08:18→22:30)
[2016-12-01] MEDS: Sertraline* 100 MG TAB PO SCH (08:18)
[2016-12-01] MEDS: Magnesium Oxide TAB* 400 MG PO SCH (08:18)
[2016-12-01] MEDS: fluPHENAZine HCL TAB* 5 MG PO SCH ×2 (08:18→22:31)
[2016-12-01] MEDS: Amoxicillin/Clavulanate TAB* 875 MG PO SCH ×2 (08:18→22:30)
[2016-12-01] MEDS: glipiZIDE TAB* 5 MG PO SCH ×2 (08:18→17:14)
[2016-12-01] MEDS: Omeprazole CAP* 20 MG PO SCH (08:19)
[2016-12-01] MEDS: Furosemide TAB* 20 MG PO SCH (08:19)
[2016-12-01] MEDS: Insulin LISPRO* 1 UNITS UNIT SUBCUT SCH ×4 (08:19→23:06)
[2016-12-01] MEDS: Rivaroxaban TAB(*) 20 MG TAB PO SCH (08:21)
[2016-12-01] MEDS: Mometasone/Formoter 200/5 MDI INH SCH ×2 (09:55→19:50)
--- NOTE | 2016-12-01 12:15 | PN ---
Subjective Date of Service: 12/01/16 Interval History: Pt continues to be rmabling and disorganized, but is alert to location, able to give me his and age, cooperative today Objective Active Medications: Acetaminophen (Tylenol Tab*) 650 mg PO Q6H PRN PRN Reason: PAIN Albuterol (Ventolin 2.5 Mg/3 Ml Neb.Manisha*) 2.5 mg INH Q4H PRN PRN Reason: SHORTNESS OF BREATH Albuterol (Ventolin Hfa Inhaler*) 2 puff INH Q4H PRN PRN Reason: SHORTNESS OF BREATH Amoxicillin/Clavulanate Potassium (Augmentin Tab*) 875 mg PO BID [facility] Last Admin: 12/01/16 08:18 Dose: 875 mg Atorvastatin Calcium (Lipitor*) 20 mg PO BEDTIME [facility] Last Admin: 11/30/16 22:09 Dose: 20 mg Dextrose (D50w Syringe 50 Ml*) 12.5 gm IV PUSH .FOR FS < 60 - SS PRN PRN Reason: FS < 60 Divalproex Sodium (Depakote Dr Tab(*)) 1,000 mg PO BID [facility] Last Admin: 12/01/16 08:18 Dose: 1,000 mg Fluphenazine HCl (Prolixin Tab*) 5 mg PO Q6H PRN PRN Reason: Agitation/confusion Last Admin: 11/27/16 00:57 Dose: 5 mg Fluphenazine HCl (Prolixin Tab*) 5 mg PO BID [facility] Last Admin: 12/01/16 08:18 Dose: 5 mg Furosemide (Lasix Tab*) 20 mg PO DAILY [facility] Last Admin: 12/01/16 08:19 Dose: 20 mg Glipizide (Glucotrol Tab*) 5 mg PO BID AC [facility] Last Admin: 12/01/16 08:18 Dose: 5 mg Insulin Human Lispro (Humalog*) 0 units SUBCUT ACHS [facility] PRN Reason: Protocol Last Admin: 12/01/16 08:19 Dose: 2 unit Levothyroxine Sodium (Synthroid Tab*) 112 mcg PO 0600 [facility] Last Admin: 12/01/16 05:59 Dose: 112 mcg Magnesium Hydroxide (Milk Of Magnesia Liq*) 30 ml PO Q6H PRN PRN Reason: CONSTIPATION Magnesium Oxide (Magox 400 Tab*) 800 mg PO DAILY [facility] Last Admin: 12/01/16 08:18 Dose: 800 mg Mometasone Furoate/Formoterol Fumar (Dulera 200/5 Mdi*) 2 puff INH BID [facility] Last Admin: 12/01/16 09:55 Dose: Not Given Nystatin (Nystatin Top Powder*) 1 applic TOPICAL BID [facility] Last Admin: 12/01/16 08:21 Dose: 1 applic Olanzapine (Zyprexa Tab*) 20 mg PO BEDTIME [facility] Last Admin: 11/30/16 22:10 Dose: 20 mg Omeprazole (Prilosec Cap*) 20 mg PO DAILY@0730 [facility] Last Admin: 12/01/16 08:19 Dose: 20 mg Rivaroxaban (Xarelto (*)) 20 mg PO DAILY [facility] Last Admin: 12/01/16 08:21 Dose: 20 mg Sertraline HCl (Zoloft*) 100 mg PO DAILY [facility] Last Admin: 12/01/16 08:18 Dose: 100 mg Trazodone HCl (Desyrel Tab*) 50 mg PO BEDTIME PRN PRN Reason: SLEEP Last Admin: 11/30/16 22:22 Dose: 50 mg Vital Signs 11/30/16 11/30/16 12/01/16 19:31 20:00 07:53 Temperature 98.5 F Pulse Rate 84 90 Respiratory 16 22 16 Rate Blood Pressure 153/87 (mmHg) O2 Sat by Pulse 92 88 Oximetry 12/01/16 09:15 Temperature Pulse Rate Respiratory 18 Rate Blood Pressure (mmHg) O2 Sat by Pulse Oximetry Oxygen Devices in Use Now: None - 02 sat 90% on RA Appearance: 56 yo M , oriented to self and place, tangential speech, disorganized thinking Eyes: No Scleral Icterus, PERRLA Ears/Nose/Mouth/Throat: NL Teeth, Lips, Gums, Mucous Membranes Moist Neck: NL Appearance and Movements; NL JVP Respiratory: Symmetrical Chest Expansion and Respiratory Effort, Clear to Auscultation Cardiovascular: NL Sounds; No Murmurs; No JVD, RRR Abdominal: NL Sounds; No Tenderness; No Distention Lymphatic: No Cervical Adenopathy Extremities: No Clubbing, Cyanosis, - - +1 pitting pedal edema b/l Skin: No Rash or Ulcers, No Nodules or Sclerosis Neurological: NL Muscle Strength and Tone Result Diagrams: 11/24/16 11:31 11/24/16 11:31 Additional Lab and Data: Lab Results 11/24/16 11/24/16 11/24/16 Range/Units 11:10 11:31 11:31 WBC 8.9 (3.5-10.8) 10^3/ul RBC 4.46 (4.0-5.4) 10^6/ul Hgb 12.8 L (14.0-18.0) g/dl Hct 39 L (42-52) % MCV 87 (80-94) fL MCH 29 (27-31) pg MCHC 33 (31-36) g/dl RDW 15 (10.5-15) % Plt Count 219 (150-450) 10^3/ul MPV 7 L (7.4-10.4) um3 Neut % (Auto) 80.3 (38-83) % Lymph % (Auto) 10.8 L (25-47) % Haskell % (Auto) 5.5 (1-9) % Eos % (Auto) 1.6 (0-6) % Baso % (Auto) 1.8 (0-2) % Absolute Neuts (auto) 7.1 (1.5-7.7) 10^3/ul Absolute Lymphs (auto) 1.0 (1.0-4.8) 10^3/ul Absolute Monos (auto) 0.5 (0-0.8) 10^3/ul Absolute Eos (auto) 0.1 (0-0.6) 10^3/ul Absolute Basos (auto) 0.2 (0-0.2) 10^3/ul Absolute Nucleated RBC 0 10^3/ul Nucleated RBC % 0 Patient Temperature Not Reportable ABG pH 7.37 (7.35-7.45) ABG pCO2 54 H (35-45) mmHg ABG pO2 104 H (80-100) mmHg ABG HCO3 28.5 (19-31) mmol/L ABG O2 Saturation 98.7 H (95-98) % ABG Base Excess 4.7 H (-2.0-2.0) Respiration Rate Not Reportable O2 Delivery Device 2lnc Ventilator Type Not Reportable Vent Mode Not Reportable FiO2 Not Reportable Inspiratory Time Not Reportable PEEP Not Reportable Pressure Support Not Reportable Pressure Control Not Reportable EPAP Not Reportable IPAP Not Reportable BiPAP Not Reportable Sodium 138 (133-145) mmol/L Potassium 3.6 (3.5-5.0) mmol/L Chloride 100 L (101-111) mmol/L Carbon Dioxide 34 H (22-32) mmol/L Anion Gap 4 (2-11) mmol/L BUN 8 (6-24) mg/dL Creatinine 0.63 L (0.67-1.17) mg/dL Est GFR ( Amer) 169.4 (>60) Est GFR (Non-Af Amer) 131.7 (>60) BUN/Creatinine Ratio 12.7 (8-20) Glucose 161 H (70-100) mg/dL Lactic Acid (0.5-2.0) mmol/L Calcium 8.8 (8.6-10.3) mg/dL Magnesium 1.7 L (1.9-2.7) mg/dL Total Bilirubin 0.40 (0.2-1.0) mg/dL AST 13 (13-39) U/L ALT 15 (7-52) U/L Alkaline Phosphatase 63 (34-104) U/L Ammonia (16-53) mol/L Total Creatine Kinase 53 (10-223) U/L Troponin I 0.00 (<0.04) ng/mL C-Reactive Protein 16.14 H (< 5.00) mg/L Total Protein 6.8 (6.4-8.9) g/dL Albumin 3.9 (3.2-5.2) g/dL Globulin 2.9 (2-4) g/dL Albumin/Globulin Ratio 1.3 (1-3) TSH 2.26 (0.34-5.60) mcIU/mL Acetaminophen < 15 mcg/mL 11/24/16 11/24/16 Range/Units 11:31 11:31 WBC (3.5-10.8) 10^3/ul RBC (4.0-5.4) 10^6/ul Hgb (14.0-18.0) g/dl Hct (42-52) % MCV (80-94) fL MCH (27-31) pg MCHC (31-36) g/dl RDW (10.5-15) % Plt Count (150-450) 10^3/ul MPV (7.4-10.4) um3 Neut % (Auto) (38-83) % Lymph % (Auto) (25-47) % Haskell % (Auto) (1-9) % Eos % (Auto) (0-6) % Baso % (Auto) (0-2) % Absolute Neuts (auto) (1.5-7.7) 10^3/ul Absolute Lymphs (auto) (1.0-4.8) 10^3/ul Absolute Monos (auto) (0-0.8) 10^3/ul Absolute Eos (auto) (0-0.6) 10^3/ul Absolute Basos (auto) (0-0.2) 10^3/ul Absolute Nucleated RBC 10^3/ul Nucleated RBC % Patient Temperature ABG pH (7.35-7.45) ABG pCO2 (35-45) mmHg ABG pO2 (80-100) mmHg ABG HCO3 (19-31) mmol/L ABG O2 Saturation (95-98) % ABG Base Excess (-2.0-2.0) Respiration Rate O2 Delivery Device Ventilator Type Vent Mode FiO2 Inspiratory Time PEEP Pressure Support Pressure Control EPAP IPAP BiPAP Sodium (133-145) mmol/L Potassium (3.5-5.0) mmol/L Chloride (101-111) mmol/L Carbon Dioxide (22-32) mmol/L Anion Gap (2-11) mmol/L BUN (6-24) mg/dL Creatinine (0.67-1.17) mg/dL Est GFR ( Amer) (>60) Est GFR (Non-Af Amer) (>60) BUN/Creatinine Ratio (8-20) Glucose (70-100) mg/dL Lactic Acid 0.8 (0.5-2.0) mmol/L Calcium (8.6-10.3) mg/dL Magnesium (1.9-2.7) mg/dL Total Bilirubin (0.2-1.0) mg/dL AST (13-39) U/L ALT (7-52) U/L Alkaline Phosphatase (34-104) U/L Ammonia 50 (16-53) mol/L Total Creatine Kinase (10-223) U/L Troponin I (<0.04) ng/mL C-Reactive Protein (< 5.00) mg/L Total Protein (6.4-8.9) g/dL Albumin (3.2-5.2) g/dL Globulin (2-4) g/dL Albumin/Globulin Ratio (1-3) TSH (0.34-5.60) mcIU/mL Acetaminophen mcg/mL Microbiology and Other Data: Microbiology 11/24/16 18:20 Nasal Screen MRSA (PCR)([facility]) - Final Nasal Mrsa Positive Assess/Plan/Problems-Billing Assessment: 56 yo with h/o schizophrenia /COPD, obesity hypoventilation syndrome , DM, readmitted with AMS - Patient Problems (1) Schizo affective schizophrenia Comment: Continue fluphenazine, olanzapine, and Depakote as per psychiatry consult appreciate psychiatry f/u. Due to a combination of psychiatric and medical needs pt is unsafe to be discharged and SW is involved with finding placement. Still disorganized thinking, although medical problems are stable, indicate acute psychiatric decompensation . (2) DM type 2 (diabetes mellitus, type 2) Comment: Continue glipizide and ISS (3) Altered mental status Comment: Improved but still not able to function at home, medical work-up negative Dr. Garibay following (4) Hypothyroidism Comment: TSH wnl 11/24/16. cont Synthroid (5) COPD (chronic obstructive pulmonary disease) Comment: Stable. Continue inhalers and nebulizers. (6) Obesity hypoventilation syndrome Comment: continue 02 at night (7) HTN (hypertension) Comment: Continue furosemide. Lisinopril was held last admission, but since BP had been high, will restart on 12/01/16 (8) Sinusitis Comment: possibly acute, present at admission. Tx with Augmentin, last dose on (9) DVT prophylaxis Comment: Xarelto Status and Disposition: usp
--- NOTE | 2016-12-01 12:50 | CONSULT ---
Identification - Patient Identification Reason for Psychiatric Consultation: Incapacitating Symptoms -: Patient is a 56 year old, M admitted on 11/24/16. - MHU Identification Employment Status: Disabled Hx Psychiatric Hospitalization: Yes History - Objective HPI: Kory appears slightly better this morning to the extent that he is robed and his room is clean and undisturbed. He remains disorganized, but perhaps less so, as he is able to tell where he is today. He appears to be tolerating the introduction of Depakote therapy well and his VPA level this AM was therapeutic at 82. He voices no complaints. Lab Results: Laboratory Tests 11/24/16 11/24/16 11/25/16 17:14 20:49 07:27 POC Glucose (mg/dL) 205 H 158 H 159 H Valproic Acid 11/25/16 11/25/16 11/25/16 10:54 16:54 20:03 POC Glucose (mg/dL) 188 H 147 H 130 H Valproic Acid 11/26/16 11/26/16 11/26/16 01:31 07:10 11:18 POC Glucose (mg/dL) 153 H 178 H 130 H Valproic Acid 11/26/16 11/26/16 11/27/16 16:07 20:42 07:40 POC Glucose (mg/dL) 144 H 132 H 159 H Valproic Acid 11/27/16 11/27/16 11/27/16 11:12 17:27 21:14 POC Glucose (mg/dL) 124 H 124 H 121 H Valproic Acid 11/28/16 11/28/16 11/28/16 08:11 12:55 16:45 POC Glucose (mg/dL) 145 H 104 158 H Valproic Acid 11/28/16 11/29/16 11/29/16 21:04 07:55 11:32 POC Glucose (mg/dL) 155 H 152 H 91 Valproic Acid 11/29/16 11/29/16 11/30/16 16:46 20:37 08:09 POC Glucose (mg/dL) 117 H 143 H 158 H Valproic Acid 11/30/16 11/30/16 11/30/16 11:53 16:47 22:17 POC Glucose (mg/dL) 102 122 H 157 H Valproic Acid 12/01/16 05:21 POC Glucose (mg/dL) Valproic Acid 82.0 Exam Appearance: Obese Hygiene: Dirty Grooming: Disheveled Psychomotor Activities: Normal Exhibits Abnormal Movement: No Attitude and Relatedness: Psychotically Related Eye Contact: Poor - Speech Quality: Unpressured Latencies: Normal Quantity: Appropriate Patient's Decription of Mood: "Good" Observed Affect: Fair Affect Consistent with: Euthymia Patient's Thought Process: Disorganized, Loose Associations Thought Content: No Passive Wish, No Suicidal Planning, No Homicidal Ideation, No Paranoid Ideation Experiencing Hallucinations: Yes Type of Hallucinations: Visual: No, Auditory: Yes, Command: No Level of Consciousness: Alert Orientation: No Intact, No Orientated to Time, No Orientated to Place, No Orientated to Person Impulse Control: Poor Insight and Judgement: Impaired Impression - Impression Clinical Impression: 56 y.o. single, white male with a history of schizoaffective DO and recent pattern of recurrent hospitalizations for acute encephalopathy, related to cardio-pulmonary disfunction which is poorly controlled in the outpatient setting, who arrives via ambulance with symptoms of confusion and disorientation. Merits Inpatient Hospitalization: No Plan - Treatment Plan Treatment Plan: The patient is receiving fluphenazine 5mg PO BID for encephalopathy. He is also receiving Depakote 1000mg PO BID, olanzapine 20mg PO qhs, sertraline 100mg PO qday and paliperidone Sustenna 156mg IM q4wks (next dose 12/07/16). I do not see the rationale for SRI therapy and sertraline will be titrated down to 50mg PO qday. This is the patient's 5th medical admission of 2017 and it is clear that he cannot care for himself in the community. We recommend SNF placement for his safety. Psychiatry will continue to follow. Continued Medication Management: Different Medication Medications: Current Medications Acetaminophen (Tylenol Tab*) 650 mg PO Q6H PRN PRN Reason: PAIN Albuterol (Ventolin 2.5 Mg/3 Ml Neb.Manisha*) 2.5 mg INH Q4H PRN PRN Reason: SHORTNESS OF BREATH Albuterol (Ventolin Hfa Inhaler*) 2 puff INH Q4H PRN PRN Reason: SHORTNESS OF BREATH Amoxicillin/Clavulanate Potassium (Augmentin Tab*) 875 mg PO BID [facility] Stop: 12/04/16 23:59 Last Admin: 06/16/17 08:18 Dose: 875 mg Atorvastatin Calcium (Lipitor*) 20 mg PO BEDTIME [facility] Last Admin: 11/30/16 22:09 Dose: 20 mg Dextrose (D50w Syringe 50 Ml*) 12.5 gm IV PUSH .FOR FS < 60 - SS PRN PRN Reason: FS < 60 Divalproex Sodium (Depakote Dr Tab(*)) 1,000 mg PO BID [facility] Last Admin: 12/01/16 08:18 Dose: 1,000 mg Fluphenazine HCl (Prolixin Tab*) 5 mg PO Q6H PRN PRN Reason: Agitation/confusion Last Admin: 11/27/16 00:57 Dose: 5 mg Fluphenazine HCl (Prolixin Tab*) 5 mg PO BID [facility] Last Admin: 12/01/16 08:18 Dose: 5 mg Furosemide (Lasix Tab*) 20 mg PO DAILY [facility] Last Admin: 12/01/16 08:19 Dose: 20 mg Glipizide (Glucotrol Tab*) 5 mg PO BID AC [facility] Last Admin: 12/01/16 08:18 Dose: 5 mg Insulin Human Lispro (Humalog*) 0 units SUBCUT ACHS [facility] PRN Reason: Protocol Last Admin: 12/01/16 08:19 Dose: 2 unit Levothyroxine Sodium (Synthroid Tab*) 112 mcg PO 0600 [facility] Last Admin: 12/01/16 05:59 Dose: 112 mcg Lisinopril (Prinivil Tab*) 10 mg PO DAILY [facility] Magnesium Hydroxide (Milk Of Magnesia Liq*) 30 ml PO Q6H PRN PRN Reason: CONSTIPATION Magnesium Oxide (Magox 400 Tab*) 800 mg PO DAILY [facility] Last Admin: 12/01/16 08:18 Dose: 800 mg Mometasone Furoate/Formoterol Fumar (Dulera 200/5 Mdi*) 2 puff INH BID [facility] Last Admin: 12/01/16 09:55 Dose: Not Given Nystatin (Nystatin Top Powder*) 1 applic TOPICAL BID [facility] Last Admin: 12/01/16 08:21 Dose: 1 applic Olanzapine (Zyprexa Tab*) 20 mg PO BEDTIME [facility] Last Admin: 11/30/16 22:10 Dose: 20 mg Omeprazole (Prilosec Cap*) 20 mg PO DAILY@0730 [facility] Last Admin: 12/01/16 08:19 Dose: 20 mg Rivaroxaban (Xarelto (*)) 20 mg PO DAILY [facility] Last Admin: 12/01/16 08:21 Dose: 20 mg Sertraline HCl (Zoloft*) 100 mg PO DAILY [facility] Last Admin: 12/01/16 08:18 Dose: 100 mg Trazodone HCl (Desyrel Tab*) 50 mg PO BEDTIME PRN PRN Reason: SLEEP Last Admin: 11/30/16 22:22 Dose: 50 mg Lab Results - Lab Results Lab Results: 11/28/16 11/28/16 11/28/16 12:55 16:45 21:04 POC Glucose (mg/dL) 104 158 H 155 H Valproic Acid 11/29/16 11/29/16 11/29/16 07:55 11:32 16:46 POC Glucose (mg/dL) 152 H 91 117 H Valproic Acid 11/29/16 11/30/16 11/30/16 20:37 08:09 11:53 POC Glucose (mg/dL) 143 H 158 H 102 Valproic Acid 11/30/16 11/30/16 12/01/16 16:47 22:17 05:21 POC Glucose (mg/dL) 122 H 157 H Valproic Acid 82.0
[2016-12-01] MEDS: Lisinopril TAB* 10 MG PO SCH (13:47)
[2016-12-01] MEDS: Atorvastatin* 20 MG TAB PO SCH (22:30)
[2016-12-01] MEDS: OLANzapine TAB* 10 MG PO SCH (22:31)
[2016-12-02] MEDS: Levothyroxine TAB* 112 MCG TAB PO SCH (05:29)
[2016-12-02] MEDS: Mometasone/Formoter 200/5 MDI INH SCH ×2 (07:54→19:47)
[2016-12-02 08:03] LABS: Hematocrit 43 % (42-52); Hemoglobin 13.9 g/dl (14.0-18.0); Mean Corpuscular HGB Conc 32 g/dl (31-36); Mean Corpuscular Hemoglobin 28 pg (27-31); Mean Corpuscular Volume 87 fL (80-94); Mean Platelet Volume 8 um3 (7.4-10.4); Red Blood Count 4.91 10^6/ul (4.0-5.4); Red Cell Distribution Width 15 % (10.5-15); White Blood Count 6.7 10^3/ul (3.5-10.8)
[2016-12-02 08:17] LABS: Albumin 4.2 g/dL (3.2-5.2); BUN/Creatinine Ratio 20.9 (8-20); Calcium 9.3 mg/dL (8.6-10.3); EGFR African American 157.8 (>60); EGFR Non-African American 122.7 (>60); Potassium 3.8 mmol/L (3.5-5.0); Total Bilirubin 0.5 mg/dL (0.2-1.0); Total Protein 7.2 g/dL (6.4-8.9)
[2016-12-02] MEDS: Magnesium Oxide TAB* 400 MG PO SCH (08:56)
[2016-12-02] MEDS: glipiZIDE TAB* 5 MG PO SCH ×2 (08:56→18:14)
[2016-12-02] MEDS: Divalproex DR TAB(*) 500 MG PO SCH ×2 (08:56→21:02)
[2016-12-02] MEDS: Amoxicillin/Clavulanate TAB* 875 MG PO SCH ×2 (08:56→21:02)
[2016-12-02] MEDS: Sertraline* 50 MG TAB PO SCH (08:56)
[2016-12-02] MEDS: Furosemide TAB* 20 MG PO SCH (08:56)
[2016-12-02] MEDS: Lisinopril TAB* 10 MG PO SCH (08:56)
[2016-12-02] MEDS: Omeprazole CAP* 20 MG PO SCH (08:56)
[2016-12-02] MEDS: Insulin LISPRO* 1 UNITS UNIT SUBCUT SCH ×4 (08:57→21:11)
[2016-12-02] MEDS: Nystatin TOP POWDER* 15 GM BTL TOPICAL SCH ×2 (08:58→21:03)
[2016-12-02] MEDS: fluPHENAZine HCL TAB* 5 MG PO SCH ×2 (08:58→21:02)
[2016-12-02] MEDS: Rivaroxaban TAB(*) 20 MG TAB PO SCH (08:58)
[2016-12-02] MEDS: Acetaminophen TAB* 325 MG PO PRN (18:16)
[2016-12-02] MEDS: Atorvastatin* 20 MG TAB PO SCH (21:02)
[2016-12-02] MEDS: OLANzapine TAB* 10 MG PO SCH (21:03)
[2016-12-03] MEDS: Levothyroxine TAB* 112 MCG TAB PO SCH (05:48)
[2016-12-03] MEDS: Mometasone/Formoter 200/5 MDI INH SCH ×2 (08:13→21:09)
[2016-12-03] MEDS: Lisinopril TAB* 10 MG PO SCH (09:19)
[2016-12-03] MEDS: Magnesium Oxide TAB* 400 MG PO SCH (09:19)
[2016-12-03] MEDS: Furosemide TAB* 20 MG PO SCH (09:19)
[2016-12-03] MEDS: fluPHENAZine HCL TAB* 5 MG PO SCH ×2 (09:19→21:00)
[2016-12-03] MEDS: Omeprazole CAP* 20 MG PO SCH (09:19)
[2016-12-03] MEDS: Amoxicillin/Clavulanate TAB* 875 MG PO SCH ×2 (09:19→21:00)
[2016-12-03] MEDS: Rivaroxaban TAB(*) 20 MG TAB PO SCH (09:19)
[2016-12-03] MEDS: glipiZIDE TAB* 5 MG PO SCH ×2 (09:19→17:21)
[2016-12-03] MEDS: Sertraline* 50 MG TAB PO SCH (09:19)
[2016-12-03] MEDS: Divalproex DR TAB(*) 500 MG PO SCH ×2 (09:20→20:59)
[2016-12-03] MEDS: Insulin LISPRO* 1 UNITS UNIT SUBCUT SCH ×4 (09:20→21:09)
[2016-12-03] MEDS: Nystatin TOP POWDER* 15 GM BTL TOPICAL SCH ×2 (09:21→21:00)
[2016-12-03] MEDS: Acetaminophen TAB* 325 MG PO PRN (17:21)
[2016-12-03] MEDS: Atorvastatin* 20 MG TAB PO SCH (21:00)
[2016-12-03] MEDS: OLANzapine TAB* 10 MG PO SCH (21:00)
[2016-12-04] MEDS: traZODone TAB* 50 MG TAB PO PRN (00:01)
[2016-12-04] MEDS: Levothyroxine TAB* 112 MCG TAB PO SCH (05:28)
[2016-12-04] MEDS: Mometasone/Formoter 200/5 MDI INH SCH ×2 (08:46→19:58)
[2016-12-04] MEDS: fluPHENAZine HCL TAB* 5 MG PO SCH ×2 (09:33→21:15)
[2016-12-04] MEDS: Magnesium Oxide TAB* 400 MG PO SCH (09:33)
[2016-12-04] MEDS: Rivaroxaban TAB(*) 20 MG TAB PO SCH (09:33)
[2016-12-04] MEDS: Amoxicillin/Clavulanate TAB* 875 MG PO SCH ×2 (09:34→21:14)
[2016-12-04] MEDS: Omeprazole CAP* 20 MG PO SCH (09:34)
[2016-12-04] MEDS: Lisinopril TAB* 10 MG PO SCH (09:34)
[2016-12-04] MEDS: Sertraline* 25 MG TAB PO SCH (09:34)
[2016-12-04] MEDS: Divalproex DR TAB(*) 500 MG PO SCH ×2 (09:35→21:15)
[2016-12-04] MEDS: glipiZIDE TAB* 5 MG PO SCH ×2 (09:36→18:53)
[2016-12-04] MEDS: Nystatin TOP POWDER* 15 GM BTL TOPICAL SCH ×2 (09:36→21:20)
[2016-12-04] MEDS: Insulin LISPRO* 1 UNITS UNIT SUBCUT SCH ×4 (09:36→21:20)
[2016-12-04] MEDS: Furosemide TAB* 20 MG PO SCH (09:36)
[2016-12-04] MEDS: OLANzapine TAB* 10 MG PO SCH (21:14)
[2016-12-04] MEDS: Atorvastatin* 20 MG TAB PO SCH (21:14)
[2016-12-05] MEDS: Levothyroxine TAB* 112 MCG TAB PO SCH (05:53)
[2016-12-05] MEDS: Mometasone/Formoter 200/5 MDI INH SCH ×2 (08:30→21:44)
[2016-12-05] MEDS: Rivaroxaban TAB(*) 20 MG TAB PO SCH (08:54)
[2016-12-05] MEDS: Omeprazole CAP* 20 MG PO SCH (08:54)
[2016-12-05] MEDS: Sertraline* 25 MG TAB PO SCH (08:54)
[2016-12-05] MEDS: glipiZIDE TAB* 5 MG PO SCH ×2 (08:54→17:22)
[2016-12-05] MEDS: Nystatin TOP POWDER* 15 GM BTL TOPICAL SCH (08:54)
[2016-12-05] MEDS: Lisinopril TAB* 10 MG PO SCH (08:54)
[2016-12-05] MEDS: Furosemide TAB* 20 MG PO SCH (08:54)
[2016-12-05] MEDS: Magnesium Oxide TAB* 400 MG PO SCH (08:54)
[2016-12-05] MEDS: fluPHENAZine HCL TAB* 5 MG PO SCH ×2 (08:54→22:22)
[2016-12-05] MEDS: Insulin LISPRO* 1 UNITS UNIT SUBCUT SCH ×4 (08:55→22:22)
[2016-12-05] MEDS: Divalproex DR TAB(*) 500 MG PO SCH ×2 (08:55→22:22)
--- NOTE | 2016-12-05 16:00 | CONSULT ---
Identification - Patient Identification Reason for Psychiatric Consultation: Incapacitating Symptoms -: Patient is a 56 year old, M admitted on 11/24/16. - MHU Identification Employment Status: Disabled Hx Psychiatric Hospitalization: Yes History - Objective HPI: Kory is found in his room, watching TV and finishing his lunch. His orientation to time remains poor. "It's November, or December. It just became Spring because of my patterson." He is confused about a number of topics, including what he will do after discharge. His mood appears euthymic and he denies SI or HI. Lab Results: Laboratory Tests 11/24/16 11/24/16 11/25/16 17:14 20:49 07:27 WBC RBC Hgb Hct MCV MCH MCHC RDW Plt Count MPV Neut % (Auto) Lymph % (Auto) [place] % (Auto) Eos % (Auto) Baso % (Auto) Absolute Neuts (auto) Absolute Lymphs (auto) Absolute Monos (auto) Absolute Eos (auto) Absolute Basos (auto) Absolute Nucleated RBC Nucleated RBC % Sodium Potassium Chloride Carbon Dioxide Anion Gap BUN Creatinine Est GFR ( Amer) Est GFR (Non-Af Amer) BUN/Creatinine Ratio Glucose POC Glucose (mg/dL) 205 H 158 H 159 H Calcium Total Bilirubin AST ALT Alkaline Phosphatase Total Protein Albumin Globulin Albumin/Globulin Ratio Valproic Acid 11/25/16 11/25/16 11/25/16 10:54 16:54 20:03 WBC RBC Hgb Hct MCV MCH MCHC RDW Plt Count MPV Neut % (Auto) Lymph % (Auto) [place] % (Auto) Eos % (Auto) Baso % (Auto) Absolute Neuts (auto) Absolute Lymphs (auto) Absolute Monos (auto) Absolute Eos (auto) Absolute Basos (auto) Absolute Nucleated RBC Nucleated RBC % Sodium Potassium Chloride Carbon Dioxide Anion Gap BUN Creatinine Est GFR ( Amer) Est GFR (Non-Af Amer) BUN/Creatinine Ratio Glucose POC Glucose (mg/dL) 188 H 147 H 130 H Calcium Total Bilirubin AST ALT Alkaline Phosphatase Total Protein Albumin Globulin Albumin/Globulin Ratio Valproic Acid 11/26/16 11/26/16 11/26/16 01:31 07:10 11:18 WBC RBC Hgb Hct MCV MCH MCHC RDW Plt Count MPV Neut % (Auto) Lymph % (Auto) [place] % (Auto) Eos % (Auto) Baso % (Auto) Absolute Neuts (auto) Absolute Lymphs (auto) Absolute Monos (auto) Absolute Eos (auto) Absolute Basos (auto) Absolute Nucleated RBC Nucleated RBC % Sodium Potassium Chloride Carbon Dioxide Anion Gap BUN Creatinine Est GFR ( Amer) Est GFR (Non-Af Amer) BUN/Creatinine Ratio Glucose POC Glucose (mg/dL) 153 H 178 H 130 H Calcium Total Bilirubin AST ALT Alkaline Phosphatase Total Protein Albumin Globulin Albumin/Globulin Ratio Valproic Acid 11/26/16 11/26/16 11/27/16 16:07 20:42 07:40 WBC RBC Hgb Hct MCV MCH MCHC RDW Plt Count MPV Neut % (Auto) Lymph % (Auto) [place] % (Auto) Eos % (Auto) Baso % (Auto) Absolute Neuts (auto) Absolute Lymphs (auto) Absolute Monos (auto) Absolute Eos (auto) Absolute Basos (auto) Absolute Nucleated RBC Nucleated RBC % Sodium Potassium Chloride Carbon Dioxide Anion Gap BUN Creatinine Est GFR ( Amer) Est GFR (Non-Af Amer) BUN/Creatinine Ratio Glucose POC Glucose (mg/dL) 144 H 132 H 159 H Calcium Total Bilirubin AST ALT Alkaline Phosphatase Total Protein Albumin Globulin Albumin/Globulin Ratio Valproic Acid 11/27/16 11/27/16 11/27/16 11:12 17:27 21:14 WBC RBC Hgb Hct MCV MCH MCHC RDW Plt Count MPV Neut % (Auto) Lymph % (Auto) [place] % (Auto) Eos % (Auto) Baso % (Auto) Absolute Neuts (auto) Absolute Lymphs (auto) Absolute Monos (auto) Absolute Eos (auto) Absolute Basos (auto) Absolute Nucleated RBC Nucleated RBC % Sodium Potassium Chloride Carbon Dioxide Anion Gap BUN Creatinine Est GFR ( Amer) Est GFR (Non-Af Amer) BUN/Creatinine Ratio Glucose POC Glucose (mg/dL) 124 H 124 H 121 H Calcium Total Bilirubin AST ALT Alkaline Phosphatase Total Protein Albumin Globulin Albumin/Globulin Ratio Valproic Acid 11/28/16 11/28/16 11/28/16 08:11 12:55 16:45 WBC RBC Hgb Hct MCV MCH MCHC RDW Plt Count MPV Neut % (Auto) Lymph % (Auto) [place] % (Auto) Eos % (Auto) Baso % (Auto) Absolute Neuts (auto) Absolute Lymphs (auto) Absolute Monos (auto) Absolute Eos (auto) Absolute Basos (auto) Absolute Nucleated RBC Nucleated RBC % Sodium Potassium Chloride Carbon Dioxide Anion Gap BUN Creatinine Est GFR ( Amer) Est GFR (Non-Af Amer) BUN/Creatinine Ratio Glucose POC Glucose (mg/dL) 145 H 104 158 H Calcium Total Bilirubin AST ALT Alkaline Phosphatase Total Protein Albumin Globulin Albumin/Globulin Ratio Valproic Acid 11/28/16 11/29/16 11/29/16 21:04 07:55 11:32 WBC RBC Hgb Hct MCV MCH MCHC RDW Plt Count MPV Neut % (Auto) Lymph % (Auto) [place] % (Auto) Eos % (Auto) Baso % (Auto) Absolute Neuts (auto) Absolute Lymphs (auto) Absolute Monos (auto) Absolute Eos (auto) Absolute Basos (auto) Absolute Nucleated RBC Nucleated RBC % Sodium Potassium Chloride Carbon Dioxide Anion Gap BUN Creatinine Est GFR ( Amer) Est GFR (Non-Af Amer) BUN/Creatinine Ratio Glucose POC Glucose (mg/dL) 155 H 152 H 91 Calcium Total Bilirubin AST ALT Alkaline Phosphatase Total Protein Albumin Globulin Albumin/Globulin Ratio Valproic Acid 11/29/16 11/29/16 11/30/16 16:46 20:37 08:09 WBC RBC Hgb Hct MCV MCH MCHC RDW Plt Count MPV Neut % (Auto) Lymph % (Auto) [place] % (Auto) Eos % (Auto) Baso % (Auto) Absolute Neuts (auto) Absolute Lymphs (auto) Absolute Monos (auto) Absolute Eos (auto) Absolute Basos (auto) Absolute Nucleated RBC Nucleated RBC % Sodium Potassium Chloride Carbon Dioxide Anion Gap BUN Creatinine Est GFR ( Amer) Est GFR (Non-Af Amer) BUN/Creatinine Ratio Glucose POC Glucose (mg/dL) 117 H 143 H 158 H Calcium Total Bilirubin AST ALT Alkaline Phosphatase Total Protein Albumin Globulin Albumin/Globulin Ratio Valproic Acid 11/30/16 11/30/16 11/30/16 11:53 16:47 22:17 WBC RBC Hgb Hct MCV MCH MCHC RDW Plt Count MPV Neut % (Auto) Lymph % (Auto) [place] % (Auto) Eos % (Auto) Baso % (Auto) Absolute Neuts (auto) Absolute Lymphs (auto) Absolute Monos (auto) Absolute Eos (auto) Absolute Basos (auto) Absolute Nucleated RBC Nucleated RBC % Sodium Potassium Chloride Carbon Dioxide Anion Gap BUN Creatinine Est GFR ( Amer) Est GFR (Non-Af Amer) BUN/Creatinine Ratio Glucose POC Glucose (mg/dL) 102 122 H 157 H Calcium Total Bilirubin AST ALT Alkaline Phosphatase Total Protein Albumin Globulin Albumin/Globulin Ratio Valproic Acid 12/01/16 12/01/16 12/01/16 05:21 07:16 12:41 WBC RBC Hgb Hct MCV MCH MCHC RDW Plt Count MPV Neut % (Auto) Lymph % (Auto) [place] % (Auto) Eos % (Auto) Baso % (Auto) Absolute Neuts (auto) Absolute Lymphs (auto) Absolute Monos (auto) Absolute Eos (auto) Absolute Basos (auto) Absolute Nucleated RBC Nucleated RBC % Sodium Potassium Chloride Carbon Dioxide Anion Gap BUN Creatinine Est GFR ( Amer) Est GFR (Non-Af Amer) BUN/Creatinine Ratio Glucose POC Glucose (mg/dL) 162 H 113 H Calcium Total Bilirubin AST ALT Alkaline Phosphatase Total Protein Albumin Globulin Albumin/Globulin Ratio Valproic Acid 82.0 12/01/16 12/01/16 12/02/16 16:53 23:02 07:47 WBC 6.7 RBC 4.91 Hgb 13.9 L Hct 43 MCV 87 MCH 28 MCHC 32 RDW 15 Plt Count 250 MPV 8 Neut % (Auto) 68.5 Lymph % (Auto) 19.0 L [place] % (Auto) 8.5 Eos % (Auto) 2.8 Baso % (Auto) 1.2 Absolute Neuts (auto) 4.6 Absolute Lymphs (auto) 1.3 Absolute Monos (auto) 0.6 Absolute Eos (auto) 0.2 Absolute Basos (auto) 0.1 Absolute Nucleated RBC 0 Nucleated RBC % 0 Sodium Potassium Chloride Carbon Dioxide Anion Gap BUN Creatinine Est GFR ( Amer) Est GFR (Non-Af Amer) BUN/Creatinine Ratio Glucose POC Glucose (mg/dL) 169 H 72 L Calcium Total Bilirubin AST ALT Alkaline Phosphatase Total Protein Albumin Globulin Albumin/Globulin Ratio Valproic Acid 12/02/16 12/02/16 12/02/16 07:47 07:51 12:21 WBC RBC Hgb Hct MCV MCH MCHC RDW Plt Count MPV Neut % (Auto) Lymph % (Auto) [place] % (Auto) Eos % (Auto) Baso % (Auto) Absolute Neuts (auto) Absolute Lymphs (auto) Absolute Monos (auto) Absolute Eos (auto) Absolute Basos (auto) Absolute Nucleated RBC Nucleated RBC % Sodium 135 Potassium 3.8 Chloride 97 L Carbon Dioxide 31 Anion Gap 7 BUN 14 Creatinine 0.67 Est GFR ( Amer) 157.8 Est GFR (Non-Af Amer) 122.7 BUN/Creatinine Ratio 20.9 H Glucose 170 H POC Glucose (mg/dL) 176 H 100 Calcium 9.3 Total Bilirubin 0.50 AST 18 ALT 24 Alkaline Phosphatase 62 Total Protein 7.2 Albumin 4.2 Globulin 3.0 Albumin/Globulin Ratio 1.4 Valproic Acid 12/02/16 12/02/16 12/03/16 16:36 21:02 07:41 WBC RBC Hgb Hct MCV MCH MCHC RDW Plt Count MPV Neut % (Auto) Lymph % (Auto) [place] % (Auto) Eos % (Auto) Baso % (Auto) Absolute Neuts (auto) Absolute Lymphs (auto) Absolute Monos (auto) Absolute Eos (auto) Absolute Basos (auto) Absolute Nucleated RBC Nucleated RBC % Sodium Potassium Chloride Carbon Dioxide Anion Gap BUN Creatinine Est GFR ( Amer) Est GFR (Non-Af Amer) BUN/Creatinine Ratio Glucose POC Glucose (mg/dL) 148 H 140 H 152 H Calcium Total Bilirubin AST ALT Alkaline Phosphatase Total Protein Albumin Globulin Albumin/Globulin Ratio Valproic Acid 12/03/16 12/03/16 12/03/16 12:37 17:13 21:03 WBC RBC Hgb Hct MCV MCH MCHC RDW Plt Count MPV Neut % (Auto) Lymph % (Auto) [place] % (Auto) Eos % (Auto) Baso % (Auto) Absolute Neuts (auto) Absolute Lymphs (auto) Absolute Monos (auto) Absolute Eos (auto) Absolute Basos (auto) Absolute Nucleated RBC Nucleated RBC % Sodium Potassium Chloride Carbon Dioxide Anion Gap BUN Creatinine Est GFR ( Amer) Est GFR (Non-Af Amer) BUN/Creatinine Ratio Glucose POC Glucose (mg/dL) 119 H 179 H 175 H Calcium Total Bilirubin AST ALT Alkaline Phosphatase Total Protein Albumin Globulin Albumin/Globulin Ratio Valproic Acid 12/04/16 12/04/16 12/04/16 07:40 12:11 17:10 WBC RBC Hgb Hct MCV MCH MCHC RDW Plt Count MPV Neut % (Auto) Lymph % (Auto) [place] % (Auto) Eos % (Auto) Baso % (Auto) Absolute Neuts (auto) Absolute Lymphs (auto) Absolute Monos (auto) Absolute Eos (auto) Absolute Basos (auto) Absolute Nucleated RBC Nucleated RBC % Sodium Potassium Chloride Carbon Dioxide Anion Gap BUN Creatinine Est GFR ( Amer) Est GFR (Non-Af Amer) BUN/Creatinine Ratio Glucose POC Glucose (mg/dL) 159 H 123 H 152 H Calcium Total Bilirubin AST ALT Alkaline Phosphatase Total Protein Albumin Globulin Albumin/Globulin Ratio Valproic Acid 12/04/16 12/05/16 12/05/16 21:14 07:28 12:15 WBC RBC Hgb Hct MCV MCH MCHC RDW Plt Count MPV Neut % (Auto) Lymph % (Auto) [place] % (Auto) Eos % (Auto) Baso % (Auto) Absolute Neuts (auto) Absolute Lymphs (auto) Absolute Monos (auto) Absolute Eos (auto) Absolute Basos (auto) Absolute Nucleated RBC Nucleated RBC % Sodium Potassium Chloride Carbon Dioxide Anion Gap BUN Creatinine Est GFR ( Amer) Est GFR (Non-Af Amer) BUN/Creatinine Ratio Glucose POC Glucose (mg/dL) 176 H 206 H 163 H Calcium Total Bilirubin AST ALT Alkaline Phosphatase Total Protein Albumin Globulin Albumin/Globulin Ratio Valproic Acid Exam Appearance: Obese Hygiene: Dirty Grooming: Disheveled Psychomotor Activities: Normal Exhibits Abnormal Movement: No Attitude and Relatedness: Psychotically Related Eye Contact: Poor - Speech Quality: Unpressured Latencies: Normal Quantity: Appropriate Patient's Decription of Mood: "Good" Observed Affect: Fair Affect Consistent with: Euthymia Patient's Thought Process: Disorganized, Loose Associations Thought Content: No Passive Wish, No Suicidal Planning, No Homicidal Ideation, No Paranoid Ideation Experiencing Hallucinations: Yes Type of Hallucinations: Visual: No, Auditory: Yes, Command: No Level of Consciousness: Alert Orientation: No Intact, No Orientated to Time, No Orientated to Place, No Orientated to Person Impulse Control: Poor Insight and Judgement: Impaired Impression - Impression Clinical Impression: 56 y.o. single, white male with a history of schizoaffective DO and recent pattern of recurrent hospitalizations for acute encephalopathy, related to cardio-pulmonary disfunction which is poorly controlled in the outpatient setting, who arrives via ambulance with symptoms of confusion and disorientation. Merits Inpatient Hospitalization: No Plan - Treatment Plan Treatment Plan: The patient is receiving fluphenazine 5mg PO BID for encephalopathy. He is also receiving Depakote 1000mg PO BID, olanzapine 20mg PO qhs, and paliperidone Sustenna 156mg IM q4wks (next dose 12/07/16). I do not see the rationale for SRI therapy and sertraline has been titrated down and can now be discontinued. This is the patient's 5th medical admission of 2016 and it is clear that he cannot care for himself in the community. We recommend SNF placement for his safety. Psychiatry will continue to follow. Continued Medication Management: Different Medication Medications: Current Medications Acetaminophen (Tylenol Tab*) 650 mg PO Q6H PRN PRN Reason: PAIN Last Admin: 12/03/16 17:21 Dose: 650 mg Albuterol (Ventolin 2.5 Mg/3 Ml Neb.Manisha*) 2.5 mg INH Q4H PRN PRN Reason: SHORTNESS OF BREATH Albuterol (Ventolin Hfa Inhaler*) 2 puff INH Q4H PRN PRN Reason: SHORTNESS OF BREATH Atorvastatin Calcium (Lipitor*) 20 mg PO BEDTIME [facility] Last Admin: 12/04/16 21:14 Dose: 20 mg Dextrose (D50w Syringe 50 Ml*) 12.5 gm IV PUSH .FOR FS < 60 - SS PRN PRN Reason: FS < 60 Divalproex Sodium (Depakote Dr Tab(*)) 1,000 mg PO BID [facility] Last Admin: 12/05/16 08:55 Dose: 1,000 mg Fluphenazine HCl (Prolixin Tab*) 5 mg PO Q6H PRN PRN Reason: Agitation/confusion Last Admin: 11/27/16 00:57 Dose: 5 mg Fluphenazine HCl (Prolixin Tab*) 5 mg PO BID [facility] Last Admin: 12/05/16 08:54 Dose: 5 mg Furosemide (Lasix Tab*) 20 mg PO DAILY [facility] Last Admin: 12/05/16 08:54 Dose: 20 mg Glipizide (Glucotrol Tab*) 5 mg PO BID AC [facility] Last Admin: 12/05/16 08:54 Dose: 5 mg Insulin Human Lispro (Humalog*) 0 units SUBCUT ACHS [facility] PRN Reason: Protocol Last Admin: 12/05/16 12:56 Dose: 2 unit Levothyroxine Sodium (Synthroid Tab*) 112 mcg PO 0600 [facility] Last Admin: 12/05/16 05:53 Dose: 112 mcg Lisinopril (Prinivil Tab*) 10 mg PO DAILY [facility] Last Admin: 12/05/16 08:54 Dose: 10 mg Magnesium Hydroxide (Milk Of Magnesia Liq*) 30 ml PO Q6H PRN PRN Reason: CONSTIPATION Magnesium Oxide (Magox 400 Tab*) 800 mg PO DAILY [facility] Last Admin: 12/05/16 08:54 Dose: 800 mg Mometasone Furoate/Formoterol Fumar (Dulera 200/5 Mdi*) 2 puff INH BID [facility] Last Admin: 12/05/16 08:30 Dose: 2 puff Nystatin (Nystatin Top Powder*) 1 applic TOPICAL BID [facility] Last Admin: 12/05/16 08:54 Dose: 1 applic Olanzapine (Zyprexa Tab*) 20 mg PO BEDTIME [facility] Last Admin: 12/04/16 21:14 Dose: 20 mg Omeprazole (Prilosec Cap*) 20 mg PO DAILY@0730 [facility] Last Admin: 12/05/16 08:54 Dose: 20 mg Rivaroxaban (Xarelto (*)) 20 mg PO DAILY [facility] Last Admin: 12/05/16 08:54 Dose: 20 mg Sertraline HCl (Zoloft*) 25 mg PO DAILY [facility] Last Admin: 12/05/16 08:54 Dose: 25 mg Trazodone HCl (Desyrel Tab*) 50 mg PO BEDTIME PRN PRN Reason: SLEEP Last Admin: 12/04/16 00:01 Dose: 50 mg
[2016-12-05] MEDS: OLANzapine TAB* 10 MG PO SCH (22:21)
[2016-12-05] MEDS: Atorvastatin* 20 MG TAB PO SCH (22:22)
[2016-12-06] MEDS: Levothyroxine TAB* 112 MCG TAB PO SCH (05:13)
[2016-12-06] MEDS: Mometasone/Formoter 200/5 MDI INH SCH ×2 (07:21→19:39)
[2016-12-06] MEDS: Nystatin TOP POWDER* 15 GM BTL TOPICAL SCH ×3 (09:08→21:08)
[2016-12-06] MEDS: Magnesium Oxide TAB* 400 MG PO SCH (09:08)
[2016-12-06] MEDS: glipiZIDE TAB* 5 MG PO SCH ×2 (09:09→16:56)
[2016-12-06] MEDS: Divalproex DR TAB(*) 500 MG PO SCH ×2 (09:09→21:07)
[2016-12-06] MEDS: fluPHENAZine HCL TAB* 5 MG PO SCH ×2 (09:09→21:08)
[2016-12-06] MEDS: Omeprazole CAP* 20 MG PO SCH (09:09)
[2016-12-06] MEDS: Lisinopril TAB* 10 MG PO SCH (09:09)
[2016-12-06] MEDS: Furosemide TAB* 20 MG PO SCH (09:09)
[2016-12-06] MEDS: Rivaroxaban TAB(*) 20 MG TAB PO SCH (09:10)
[2016-12-06] MEDS: Insulin LISPRO* 1 UNITS UNIT SUBCUT SCH ×4 (09:10→21:15)
[2016-12-06] MEDS: Atorvastatin* 20 MG TAB PO SCH (21:07)
[2016-12-06] MEDS: OLANzapine TAB* 10 MG PO SCH (21:08)
[2016-12-07] MEDS: Levothyroxine TAB* 112 MCG TAB PO SCH (06:04)
[2016-12-07] MEDS: Omeprazole CAP* 20 MG PO SCH (08:42)
[2016-12-07] MEDS: glipiZIDE TAB* 5 MG PO SCH ×2 (08:42→18:12)
[2016-12-07] MEDS: Furosemide TAB* 20 MG PO SCH (08:42)
[2016-12-07] MEDS: Rivaroxaban TAB(*) 20 MG TAB PO SCH (08:43)
[2016-12-07] MEDS: Magnesium Oxide TAB* 400 MG PO SCH (08:43)
[2016-12-07] MEDS: fluPHENAZine HCL TAB* 5 MG PO SCH ×2 (08:43→21:06)
[2016-12-07] MEDS: Lisinopril TAB* 10 MG PO SCH (08:43)
[2016-12-07] MEDS: Divalproex DR TAB(*) 500 MG PO SCH ×2 (08:43→21:05)
[2016-12-07] MEDS: Insulin LISPRO* 1 UNITS UNIT SUBCUT SCH ×4 (08:45→21:02)
[2016-12-07] MEDS: Nystatin TOP POWDER* 15 GM BTL TOPICAL SCH ×2 (08:47→21:06)
[2016-12-07] MEDS: Mometasone/Formoter 200/5 MDI INH SCH ×2 (09:10→20:06)
--- NOTE | 2016-12-07 11:43 | PN ---
Subjective Date of Service: 12/07/16 Interval History: Pt today is sitting , eating breakfast, pleasant , conversational, oriented x 3 , no complaints. Objective Active Medications: Acetaminophen (Tylenol Tab*) 650 mg PO Q6H PRN PRN Reason: PAIN Last Admin: 12/03/16 17:21 Dose: 650 mg Albuterol (Ventolin 2.5 Mg/3 Ml Neb.Manisha*) 2.5 mg INH Q4H PRN PRN Reason: SHORTNESS OF BREATH Albuterol (Ventolin Hfa Inhaler*) 2 puff INH Q4H PRN PRN Reason: SHORTNESS OF BREATH Atorvastatin Calcium (Lipitor*) 20 mg PO BEDTIME [facility] Last Admin: 12/06/16 21:07 Dose: 20 mg Dextrose (D50w Syringe 50 Ml*) 12.5 gm IV PUSH .FOR FS < 60 - SS PRN PRN Reason: FS < 60 Divalproex Sodium (Depakote Dr Tab(*)) 1,000 mg PO BID [facility] Last Admin: 12/07/16 08:43 Dose: 1,000 mg Fluphenazine HCl (Prolixin Tab*) 5 mg PO Q6H PRN PRN Reason: Agitation/confusion Last Admin: 11/27/16 00:57 Dose: 5 mg Fluphenazine HCl (Prolixin Tab*) 5 mg PO BID [facility] Last Admin: 12/07/16 08:43 Dose: 5 mg Furosemide (Lasix Tab*) 20 mg PO DAILY [facility] Last Admin: 12/07/16 08:42 Dose: 20 mg Glipizide (Glucotrol Tab*) 5 mg PO BID AC [facility] Last Admin: 12/07/16 08:42 Dose: 5 mg Insulin Human Lispro (Humalog*) 0 units SUBCUT ACHS [facility] PRN Reason: Protocol Last Admin: 12/07/16 08:45 Dose: 2 unit Levothyroxine Sodium (Synthroid Tab*) 112 mcg PO 0600 [facility] Last Admin: 12/07/16 06:04 Dose: 112 mcg Lisinopril (Prinivil Tab*) 10 mg PO DAILY [facility] Last Admin: 12/07/16 08:43 Dose: 10 mg Magnesium Hydroxide (Milk Of Magnesia Liq*) 30 ml PO Q6H PRN PRN Reason: CONSTIPATION Magnesium Oxide (Magox 400 Tab*) 800 mg PO DAILY [facility] Last Admin: 12/07/16 08:43 Dose: 800 mg Mometasone Furoate/Formoterol Fumar (Dulera 200/5 Mdi*) 2 puff INH BID [facility] Last Admin: 12/07/16 09:10 Dose: 2 puff Nystatin (Nystatin Top Powder*) 1 applic TOPICAL BID [facility] Last Admin: 12/07/16 08:47 Dose: 1 applic Olanzapine (Zyprexa Tab*) 20 mg PO BEDTIME [facility] Last Admin: 12/06/16 21:08 Dose: 20 mg Omeprazole (Prilosec Cap*) 20 mg PO DAILY@0730 [facility] Last Admin: 12/07/16 08:42 Dose: 20 mg Paliperidone Palmitate (Invega Sustenna*) 156 mg IM ONCE ONE Stop: 12/07/16 16:01 Rivaroxaban (Xarelto (*)) 20 mg PO DAILY [facility] Last Admin: 12/07/16 08:43 Dose: 20 mg Trazodone HCl (Desyrel Tab*) 50 mg PO BEDTIME PRN PRN Reason: SLEEP Last Admin: 12/04/16 00:01 Dose: 50 mg Vital Signs 12/06/16 12/07/16 12/07/16 19:50 07:29 08:00 Temperature 97.6 F Pulse Rate 75 Respiratory 17 16 18 Rate Blood Pressure 157/85 (mmHg) O2 Sat by Pulse 96 Oximetry Oxygen Devices in Use Now: None - 02 sat 90% on RA Appearance: 56 yo M in nAD, AAOx3 Eyes: No Scleral Icterus, PERRLA Ears/Nose/Mouth/Throat: NL Teeth, Lips, Gums, Mucous Membranes Moist Neck: NL Appearance and Movements; NL JVP Respiratory: Symmetrical Chest Expansion and Respiratory Effort, Clear to Auscultation Cardiovascular: NL Sounds; No Murmurs; No JVD, RRR Abdominal: NL Sounds; No Tenderness; No Distention Lymphatic: No Cervical Adenopathy Extremities: No Clubbing, Cyanosis, - - +1 pitting edema b/l Skin: No Rash or Ulcers, No Nodules or Sclerosis Neurological: Alert and Oriented x 3, NL Muscle Strength and Tone Result Diagrams: 12/02/16 07:47 12/02/16 07:47 Additional Lab and Data: Lab Results 06/09/17 06/09/17 06/09/17 Range/Units 11:10 11:31 11:31 WBC 8.9 (3.5-10.8) 10^3/ul RBC 4.46 (4.0-5.4) 10^6/ul Hgb 12.8 L (14.0-18.0) g/dl Hct 39 L (42-52) % MCV 87 (80-94) fL MCH 29 (27-31) pg MCHC 33 (31-36) g/dl RDW 15 (10.5-15) % Plt Count 219 (150-450) 10^3/ul MPV 7 L (7.4-10.4) um3 Neut % (Auto) 80.3 (38-83) % Lymph % (Auto) 10.8 L (25-47) % [place] % (Auto) 5.5 (1-9) % Eos % (Auto) 1.6 (0-6) % Baso % (Auto) 1.8 (0-2) % Absolute Neuts (auto) 7.1 (1.5-7.7) 10^3/ul Absolute Lymphs (auto) 1.0 (1.0-4.8) 10^3/ul Absolute Monos (auto) 0.5 (0-0.8) 10^3/ul Absolute Eos (auto) 0.1 (0-0.6) 10^3/ul Absolute Basos (auto) 0.2 (0-0.2) 10^3/ul Absolute Nucleated RBC 0 10^3/ul Nucleated RBC % 0 Patient Temperature Not Reportable ABG pH 7.37 (7.35-7.45) ABG pCO2 54 H (35-45) mmHg ABG pO2 104 H (80-100) mmHg ABG HCO3 28.5 (19-31) mmol/L ABG O2 Saturation 98.7 H (95-98) % ABG Base Excess 4.7 H (-2.0-2.0) Respiration Rate Not Reportable O2 Delivery Device 2lnc Ventilator Type Not Reportable Vent Mode Not Reportable FiO2 Not Reportable Inspiratory Time Not Reportable PEEP Not Reportable Pressure Support Not Reportable Pressure Control Not Reportable EPAP Not Reportable IPAP Not Reportable BiPAP Not Reportable Sodium 138 (133-145) mmol/L Potassium 3.6 (3.5-5.0) mmol/L Chloride 100 L (101-111) mmol/L Carbon Dioxide 34 H (22-32) mmol/L Anion Gap 4 (2-11) mmol/L BUN 8 (6-24) mg/dL Creatinine 0.63 L (0.67-1.17) mg/dL Est GFR ( Amer) 169.4 (>60) Est GFR (Non-Af Amer) 131.7 (>60) BUN/Creatinine Ratio 12.7 (8-20) Glucose 161 H (70-100) mg/dL Lactic Acid (0.5-2.0) mmol/L Calcium 8.8 (8.6-10.3) mg/dL Magnesium 1.7 L (1.9-2.7) mg/dL Total Bilirubin 0.40 (0.2-1.0) mg/dL AST 13 (13-39) U/L ALT 15 (7-52) U/L Alkaline Phosphatase 63 (34-104) U/L Ammonia (16-53) mol/L Total Creatine Kinase 53 (10-223) U/L Troponin I 0.00 (<0.04) ng/mL C-Reactive Protein 16.14 H (< 5.00) mg/L Total Protein 6.8 (6.4-8.9) g/dL Albumin 3.9 (3.2-5.2) g/dL Globulin 2.9 (2-4) g/dL Albumin/Globulin Ratio 1.3 (1-3) TSH 2.26 (0.34-5.60) mcIU/mL Acetaminophen < 15 mcg/mL 11/24/16 11/24/16 Range/Units 11:31 11:31 WBC (3.5-10.8) 10^3/ul RBC (4.0-5.4) 10^6/ul Hgb (14.0-18.0) g/dl Hct (42-52) % MCV (80-94) fL MCH (27-31) pg MCHC (31-36) g/dl RDW (10.5-15) % Plt Count (150-450) 10^3/ul MPV (7.4-10.4) um3 Neut % (Auto) (38-83) % Lymph % (Auto) (25-47) % [place] % (Auto) (1-9) % Eos % (Auto) (0-6) % Baso % (Auto) (0-2) % Absolute Neuts (auto) (1.5-7.7) 10^3/ul Absolute Lymphs (auto) (1.0-4.8) 10^3/ul Absolute Monos (auto) (0-0.8) 10^3/ul Absolute Eos (auto) (0-0.6) 10^3/ul Absolute Basos (auto) (0-0.2) 10^3/ul Absolute Nucleated RBC 10^3/ul Nucleated RBC % Patient Temperature ABG pH (7.35-7.45) ABG pCO2 (35-45) mmHg ABG pO2 (80-100) mmHg ABG HCO3 (19-31) mmol/L ABG O2 Saturation (95-98) % ABG Base Excess (-2.0-2.0) Respiration Rate O2 Delivery Device Ventilator Type Vent Mode FiO2 Inspiratory Time PEEP Pressure Support Pressure Control EPAP IPAP BiPAP Sodium (133-145) mmol/L Potassium (3.5-5.0) mmol/L Chloride (101-111) mmol/L Carbon Dioxide (22-32) mmol/L Anion Gap (2-11) mmol/L BUN (6-24) mg/dL Creatinine (0.67-1.17) mg/dL Est GFR ( Amer) (>60) Est GFR (Non-Af Amer) (>60) BUN/Creatinine Ratio (8-20) Glucose (70-100) mg/dL Lactic Acid 0.8 (0.5-2.0) mmol/L Calcium (8.6-10.3) mg/dL Magnesium (1.9-2.7) mg/dL Total Bilirubin (0.2-1.0) mg/dL AST (13-39) U/L ALT (7-52) U/L Alkaline Phosphatase (34-104) U/L Ammonia 50 (16-53) mol/L Total Creatine Kinase (10-223) U/L Troponin I (<0.04) ng/mL C-Reactive Protein (< 5.00) mg/L Total Protein (6.4-8.9) g/dL Albumin (3.2-5.2) g/dL Globulin (2-4) g/dL Albumin/Globulin Ratio (1-3) TSH (0.34-5.60) mcIU/mL Acetaminophen mcg/mL Microbiology and Other Data: Microbiology 11/24/16 18:20 Nasal Screen MRSA (PCR)([facility]) - Final Nasal Mrsa Positive Assess/Plan/Problems-Billing Assessment: 56 yo with h/o schizophrenia /COPD, obesity hypoventilation syndrome , DM, readmitted with AMS - Patient Problems (1) Schizo affective schizophrenia Comment: Continue fluphenazine, olanzapine, and Depakote as per psychiatry consult appreciate psychiatry f/u. Due to a combination of psychiatric and medical needs pt is unsafe to be discharged and SW is involved with finding placement. Medical problems are stable, today pt appears to be psychiatrically stable and back to his baseline (2) DM type 2 (diabetes mellitus, type 2) Comment: Continue glipizide and ISS (3) Altered mental status Comment: Improved but still not able to function at home, medical work-up negative Dr. Garibay following (4) Hypothyroidism Comment: TSH wnl 11/24/16. cont Synthroid (5) COPD (chronic obstructive pulmonary disease) Comment: Stable. Continue inhalers and nebulizers. (6) Obesity hypoventilation syndrome Comment: continue 02 at night (7) HTN (hypertension) Comment: controlled Continue furosemide/Lisinopril (8) Sinusitis Comment: possibly acute, present at admission. Treated with Augmentin, last dose on 12/04/16 (9) DVT prophylaxis Comment: Xarelto Status and Disposition: residential
[2016-12-07] MEDS ORDERED: Paliperidone SUSTENNA* 156 MG/1 ML IM ONE (16:00)
[2016-12-07] MEDS: Atorvastatin* 20 MG TAB PO SCH (21:05)
[2016-12-07] MEDS: OLANzapine TAB* 10 MG PO SCH (21:07)
[2016-12-08] MEDS: Levothyroxine TAB* 112 MCG TAB PO SCH (06:41)
[2016-12-08] MEDS: glipiZIDE TAB* 5 MG PO SCH ×2 (07:19→16:32)
[2016-12-08] MEDS: Mometasone/Formoter 200/5 MDI INH SCH ×2 (07:36→20:15)
[2016-12-08] MEDS: Insulin LISPRO* 1 UNITS UNIT SUBCUT SCH ×4 (08:53→20:11)
[2016-12-08] MEDS: Rivaroxaban TAB(*) 20 MG TAB PO SCH (08:53)
[2016-12-08] MEDS: Lisinopril TAB* 10 MG PO SCH (08:53)
[2016-12-08] MEDS: Magnesium Oxide TAB* 400 MG PO SCH (08:53)
[2016-12-08] MEDS: Divalproex DR TAB(*) 500 MG PO SCH ×2 (08:53→20:12)
[2016-12-08] MEDS: Furosemide TAB* 20 MG PO SCH (08:54)
[2016-12-08] MEDS: Omeprazole CAP* 20 MG PO SCH (08:54)
[2016-12-08] MEDS: fluPHENAZine HCL TAB* 5 MG PO SCH ×2 (08:55→20:12)
[2016-12-08] MEDS: Nystatin TOP POWDER* 15 GM BTL TOPICAL SCH ×2 (09:00→20:17)
--- NOTE | 2016-12-08 12:07 | CONSULT ---
Identification - Patient Identification Reason for Psychiatric Consultation: Incapacitating Symptoms -: Patient is a 56 year old, M admitted on 11/24/16. - MHU Identification Employment Status: Disabled Hx Psychiatric Hospitalization: Yes History - Objective HPI: Andrea Mccallum is a 56 y.o. single, white male with a history of schizoaffective DO and recent pattern of recurrent hospitalizations for acute encephalopathy related to cardio-pulmonary disfunction, which is poorly controlled in the outpatient setting, who arrived via ambulance on November 24 with symptoms of confusion and disorientation. Today, Kory appears at his psychiatric baseline, which is pleasant but confused. Since admission we have stabilized his medical delirium by administering all scheduled outpatient medications and maintaining him on nasal O2. Psychiatrically, we have added fluphenazine 5mg PO BID and discontinued his sertraline in favor of a trial of Depakote 1000mg PO BID (blood level therapeutic at 82). My understanding is that on November 29, there was an episode in which he was observed crawling on the floor. This was likely secondary to his disorganized thinking, associated with his diagnosis of delirium. As Mr. Mccallum has progressed we observe far less disorganized speech and behavior and he is psychiatrically stable for discharge to a higher level of residential care than he had prior to admission. Lab Results: Laboratory Tests 11/24/16 11/24/16 11/25/16 17:14 20:49 07:27 WBC RBC Hgb Hct MCV MCH MCHC RDW Plt Count MPV Neut % (Auto) Lymph % (Auto) [place] % (Auto) Eos % (Auto) Baso % (Auto) Absolute Neuts (auto) Absolute Lymphs (auto) Absolute Monos (auto) Absolute Eos (auto) Absolute Basos (auto) Absolute Nucleated RBC Nucleated RBC % Sodium Potassium Chloride Carbon Dioxide Anion Gap BUN Creatinine Est GFR ( Amer) Est GFR (Non-Af Amer) BUN/Creatinine Ratio Glucose POC Glucose (mg/dL) 205 H 158 H 159 H Calcium Total Bilirubin AST ALT Alkaline Phosphatase Total Protein Albumin Globulin Albumin/Globulin Ratio Valproic Acid 11/25/16 11/25/16 11/25/16 10:54 16:54 20:03 WBC RBC Hgb Hct MCV MCH MCHC RDW Plt Count MPV Neut % (Auto) Lymph % (Auto) [place] % (Auto) Eos % (Auto) Baso % (Auto) Absolute Neuts (auto) Absolute Lymphs (auto) Absolute Monos (auto) Absolute Eos (auto) Absolute Basos (auto) Absolute Nucleated RBC Nucleated RBC % Sodium Potassium Chloride Carbon Dioxide Anion Gap BUN Creatinine Est GFR ( Amer) Est GFR (Non-Af Amer) BUN/Creatinine Ratio Glucose POC Glucose (mg/dL) 188 H 147 H 130 H Calcium Total Bilirubin AST ALT Alkaline Phosphatase Total Protein Albumin Globulin Albumin/Globulin Ratio Valproic Acid 11/26/16 11/26/16 11/26/16 01:31 07:10 11:18 WBC RBC Hgb Hct MCV MCH MCHC RDW Plt Count MPV Neut % (Auto) Lymph % (Auto) [place] % (Auto) Eos % (Auto) Baso % (Auto) Absolute Neuts (auto) Absolute Lymphs (auto) Absolute Monos (auto) Absolute Eos (auto) Absolute Basos (auto) Absolute Nucleated RBC Nucleated RBC % Sodium Potassium Chloride Carbon Dioxide Anion Gap BUN Creatinine Est GFR ( Amer) Est GFR (Non-Af Amer) BUN/Creatinine Ratio Glucose POC Glucose (mg/dL) 153 H 178 H 130 H Calcium Total Bilirubin AST ALT Alkaline Phosphatase Total Protein Albumin Globulin Albumin/Globulin Ratio Valproic Acid 11/26/16 11/26/16 11/27/16 16:07 20:42 07:40 WBC RBC Hgb Hct MCV MCH MCHC RDW Plt Count MPV Neut % (Auto) Lymph % (Auto) [place] % (Auto) Eos % (Auto) Baso % (Auto) Absolute Neuts (auto) Absolute Lymphs (auto) Absolute Monos (auto) Absolute Eos (auto) Absolute Basos (auto) Absolute Nucleated RBC Nucleated RBC % Sodium Potassium Chloride Carbon Dioxide Anion Gap BUN Creatinine Est GFR ( Amer) Est GFR (Non-Af Amer) BUN/Creatinine Ratio Glucose POC Glucose (mg/dL) 144 H 132 H 159 H Calcium Total Bilirubin AST ALT Alkaline Phosphatase Total Protein Albumin Globulin Albumin/Globulin Ratio Valproic Acid 11/27/16 11/27/16 11/27/16 11:12 17:27 21:14 WBC RBC Hgb Hct MCV MCH MCHC RDW Plt Count MPV Neut % (Auto) Lymph % (Auto) [place] % (Auto) Eos % (Auto) Baso % (Auto) Absolute Neuts (auto) Absolute Lymphs (auto) Absolute Monos (auto) Absolute Eos (auto) Absolute Basos (auto) Absolute Nucleated RBC Nucleated RBC % Sodium Potassium Chloride Carbon Dioxide Anion Gap BUN Creatinine Est GFR ( Amer) Est GFR (Non-Af Amer) BUN/Creatinine Ratio Glucose POC Glucose (mg/dL) 124 H 124 H 121 H Calcium Total Bilirubin AST ALT Alkaline Phosphatase Total Protein Albumin Globulin Albumin/Globulin Ratio Valproic Acid 11/28/16 11/28/16 11/28/16 08:11 12:55 16:45 WBC RBC Hgb Hct MCV MCH MCHC RDW Plt Count MPV Neut % (Auto) Lymph % (Auto) [place] % (Auto) Eos % (Auto) Baso % (Auto) Absolute Neuts (auto) Absolute Lymphs (auto) Absolute Monos (auto) Absolute Eos (auto) Absolute Basos (auto) Absolute Nucleated RBC Nucleated RBC % Sodium Potassium Chloride Carbon Dioxide Anion Gap BUN Creatinine Est GFR ( Amer) Est GFR (Non-Af Amer) BUN/Creatinine Ratio Glucose POC Glucose (mg/dL) 145 H 104 158 H Calcium Total Bilirubin AST ALT Alkaline Phosphatase Total Protein Albumin Globulin Albumin/Globulin Ratio Valproic Acid 11/28/16 11/29/16 11/29/16 21:04 07:55 11:32 WBC RBC Hgb Hct MCV MCH MCHC RDW Plt Count MPV Neut % (Auto) Lymph % (Auto) [place] % (Auto) Eos % (Auto) Baso % (Auto) Absolute Neuts (auto) Absolute Lymphs (auto) Absolute Monos (auto) Absolute Eos (auto) Absolute Basos (auto) Absolute Nucleated RBC Nucleated RBC % Sodium Potassium Chloride Carbon Dioxide Anion Gap BUN Creatinine Est GFR ( Amer) Est GFR (Non-Af Amer) BUN/Creatinine Ratio Glucose POC Glucose (mg/dL) 155 H 152 H 91 Calcium Total Bilirubin AST ALT Alkaline Phosphatase Total Protein Albumin Globulin Albumin/Globulin Ratio Valproic Acid 11/29/16 11/29/16 11/30/16 16:46 20:37 08:09 WBC RBC Hgb Hct MCV MCH MCHC RDW Plt Count MPV Neut % (Auto) Lymph % (Auto) [place] % (Auto) Eos % (Auto) Baso % (Auto) Absolute Neuts (auto) Absolute Lymphs (auto) Absolute Monos (auto) Absolute Eos (auto) Absolute Basos (auto) Absolute Nucleated RBC Nucleated RBC % Sodium Potassium Chloride Carbon Dioxide Anion Gap BUN Creatinine Est GFR ( Amer) Est GFR (Non-Af Amer) BUN/Creatinine Ratio Glucose POC Glucose (mg/dL) 117 H 143 H 158 H Calcium Total Bilirubin AST ALT Alkaline Phosphatase Total Protein Albumin Globulin Albumin/Globulin Ratio Valproic Acid 11/30/16 11/30/16 11/30/16 11:53 16:47 22:17 WBC RBC Hgb Hct MCV MCH MCHC RDW Plt Count MPV Neut % (Auto) Lymph % (Auto) [place] % (Auto) Eos % (Auto) Baso % (Auto) Absolute Neuts (auto) Absolute Lymphs (auto) Absolute Monos (auto) Absolute Eos (auto) Absolute Basos (auto) Absolute Nucleated RBC Nucleated RBC % Sodium Potassium Chloride Carbon Dioxide Anion Gap BUN Creatinine Est GFR ( Amer) Est GFR (Non-Af Amer) BUN/Creatinine Ratio Glucose POC Glucose (mg/dL) 102 122 H 157 H Calcium Total Bilirubin AST ALT Alkaline Phosphatase Total Protein Albumin Globulin Albumin/Globulin Ratio Valproic Acid 12/01/16 12/01/16 12/01/16 05:21 07:16 12:41 WBC RBC Hgb Hct MCV MCH MCHC RDW Plt Count MPV Neut % (Auto) Lymph % (Auto) [place] % (Auto) Eos % (Auto) Baso % (Auto) Absolute Neuts (auto) Absolute Lymphs (auto) Absolute Monos (auto) Absolute Eos (auto) Absolute Basos (auto) Absolute Nucleated RBC Nucleated RBC % Sodium Potassium Chloride Carbon Dioxide Anion Gap BUN Creatinine Est GFR ( Amer) Est GFR (Non-Af Amer) BUN/Creatinine Ratio Glucose POC Glucose (mg/dL) 162 H 113 H Calcium Total Bilirubin AST ALT Alkaline Phosphatase Total Protein Albumin Globulin Albumin/Globulin Ratio Valproic Acid 82.0 12/01/16 12/01/16 12/02/16 16:53 23:02 07:47 WBC 6.7 RBC 4.91 Hgb 13.9 L Hct 43 MCV 87 MCH 28 MCHC 32 RDW 15 Plt Count 250 MPV 8 Neut % (Auto) 68.5 Lymph % (Auto) 19.0 L [place] % (Auto) 8.5 Eos % (Auto) 2.8 Baso % (Auto) 1.2 Absolute Neuts (auto) 4.6 Absolute Lymphs (auto) 1.3 Absolute Monos (auto) 0.6 Absolute Eos (auto) 0.2 Absolute Basos (auto) 0.1 Absolute Nucleated RBC 0 Nucleated RBC % 0 Sodium Potassium Chloride Carbon Dioxide Anion Gap BUN Creatinine Est GFR ( Amer) Est GFR (Non-Af Amer) BUN/Creatinine Ratio Glucose POC Glucose (mg/dL) 169 H 72 L Calcium Total Bilirubin AST ALT Alkaline Phosphatase Total Protein Albumin Globulin Albumin/Globulin Ratio Valproic Acid 12/02/16 12/02/16 12/02/16 07:47 07:51 12:21 WBC RBC Hgb Hct MCV MCH MCHC RDW Plt Count MPV Neut % (Auto) Lymph % (Auto) [place] % (Auto) Eos % (Auto) Baso % (Auto) Absolute Neuts (auto) Absolute Lymphs (auto) Absolute Monos (auto) Absolute Eos (auto) Absolute Basos (auto) Absolute Nucleated RBC Nucleated RBC % Sodium 135 Potassium 3.8 Chloride 97 L Carbon Dioxide 31 Anion Gap 7 BUN 14 Creatinine 0.67 Est GFR ( Amer) 157.8 Est GFR (Non-Af Amer) 122.7 BUN/Creatinine Ratio 20.9 H Glucose 170 H POC Glucose (mg/dL) 176 H 100 Calcium 9.3 Total Bilirubin 0.50 AST 18 ALT 24 Alkaline Phosphatase 62 Total Protein 7.2 Albumin 4.2 Globulin 3.0 Albumin/Globulin Ratio 1.4 Valproic Acid 12/02/16 12/02/16 12/03/16 16:36 21:02 07:41 WBC RBC Hgb Hct MCV MCH MCHC RDW Plt Count MPV Neut % (Auto) Lymph % (Auto) [place] % (Auto) Eos % (Auto) Baso % (Auto) Absolute Neuts (auto) Absolute Lymphs (auto) Absolute Monos (auto) Absolute Eos (auto) Absolute Basos (auto) Absolute Nucleated RBC Nucleated RBC % Sodium Potassium Chloride Carbon Dioxide Anion Gap BUN Creatinine Est GFR ( Amer) Est GFR (Non-Af Amer) BUN/Creatinine Ratio Glucose POC Glucose (mg/dL) 148 H 140 H 152 H Calcium Total Bilirubin AST ALT Alkaline Phosphatase Total Protein Albumin Globulin Albumin/Globulin Ratio Valproic Acid 12/03/16 12/03/16 12/03/16 12:37 17:13 21:03 WBC RBC Hgb Hct MCV MCH MCHC RDW Plt Count MPV Neut % (Auto) Lymph % (Auto) [place] % (Auto) Eos % (Auto) Baso % (Auto) Absolute Neuts (auto) Absolute Lymphs (auto) Absolute Monos (auto) Absolute Eos (auto) Absolute Basos (auto) Absolute Nucleated RBC Nucleated RBC % Sodium Potassium Chloride Carbon Dioxide Anion Gap BUN Creatinine Est GFR ( Amer) Est GFR (Non-Af Amer) BUN/Creatinine Ratio Glucose POC Glucose (mg/dL) 119 H 179 H 175 H Calcium Total Bilirubin AST ALT Alkaline Phosphatase Total Protein Albumin Globulin Albumin/Globulin Ratio Valproic Acid 12/04/16 12/04/16 12/04/16 07:40 12:11 17:10 WBC RBC Hgb Hct MCV MCH MCHC RDW Plt Count MPV Neut % (Auto) Lymph % (Auto) [place] % (Auto) Eos % (Auto) Baso % (Auto) Absolute Neuts (auto) Absolute Lymphs (auto) Absolute Monos (auto) Absolute Eos (auto) Absolute Basos (auto) Absolute Nucleated RBC Nucleated RBC % Sodium Potassium Chloride Carbon Dioxide Anion Gap BUN Creatinine Est GFR ( Amer) Est GFR (Non- Amer) BUN/Creatinine Ratio Glucose POC Glucose (mg/dL) 159 H 123 H 152 H Calcium Total Bilirubin AST ALT Alkaline Phosphatase Total Protein Albumin Globulin Albumin/Globulin Ratio Valproic Acid 12/04/16 12/05/16 12/05/16 21:14 07:28 12:15 WBC RBC Hgb Hct MCV MCH MCHC RDW Plt Count MPV Neut % (Auto) Lymph % (Auto) [place] % (Auto) Eos % (Auto) Baso % (Auto) Absolute Neuts (auto) Absolute Lymphs (auto) Absolute Monos (auto) Absolute Eos (auto) Absolute Basos (auto) Absolute Nucleated RBC Nucleated RBC % Sodium Potassium Chloride Carbon Dioxide Anion Gap BUN Creatinine Est GFR ( Amer) Est GFR (Non-Af Amer) BUN/Creatinine Ratio Glucose POC Glucose (mg/dL) 176 H 206 H 163 H Calcium Total Bilirubin AST ALT Alkaline Phosphatase Total Protein Albumin Globulin Albumin/Globulin Ratio Valproic Acid 12/05/16 12/05/16 12/06/16 17:24 22:13 07:57 WBC RBC Hgb Hct MCV MCH MCHC RDW Plt Count MPV Neut % (Auto) Lymph % (Auto) [place] % (Auto) Eos % (Auto) Baso % (Auto) Absolute Neuts (auto) Absolute Lymphs (auto) Absolute Monos (auto) Absolute Eos (auto) Absolute Basos (auto) Absolute Nucleated RBC Nucleated RBC % Sodium Potassium Chloride Carbon Dioxide Anion Gap BUN Creatinine Est GFR ( Amer) Est GFR (Non-Af Amer) BUN/Creatinine Ratio Glucose POC Glucose (mg/dL) 189 H 212 H 176 H Calcium Total Bilirubin AST ALT Alkaline Phosphatase Total Protein Albumin Globulin Albumin/Globulin Ratio Valproic Acid 12/06/16 12/06/16 12/06/16 11:40 16:49 21:07 WBC RBC Hgb Hct MCV MCH MCHC RDW Plt Count MPV Neut % (Auto) Lymph % (Auto) [place] % (Auto) Eos % (Auto) Baso % (Auto) Absolute Neuts (auto) Absolute Lymphs (auto) Absolute Monos (auto) Absolute Eos (auto) Absolute Basos (auto) Absolute Nucleated RBC Nucleated RBC % Sodium Potassium Chloride Carbon Dioxide Anion Gap BUN Creatinine Est GFR ( Amer) Est GFR (Non-Af Amer) BUN/Creatinine Ratio Glucose POC Glucose (mg/dL) 198 H 260 H 188 H Calcium Total Bilirubin AST ALT Alkaline Phosphatase Total Protein Albumin Globulin Albumin/Globulin Ratio Valproic Acid 12/07/16 12/07/16 12/07/16 07:27 12:26 16:59 WBC RBC Hgb Hct MCV MCH MCHC RDW Plt Count MPV Neut % (Auto) Lymph % (Auto) [place] % (Auto) Eos % (Auto) Baso % (Auto) Absolute Neuts (auto) Absolute Lymphs (auto) Absolute Monos (auto) Absolute Eos (auto) Absolute Basos (auto) Absolute Nucleated RBC Nucleated RBC % Sodium Potassium Chloride Carbon Dioxide Anion Gap BUN Creatinine Est GFR ( Amer) Est GFR (Non-Af Amer) BUN/Creatinine Ratio Glucose POC Glucose (mg/dL) 186 H 302 H 211 H Calcium Total Bilirubin AST ALT Alkaline Phosphatase Total Protein Albumin Globulin Albumin/Globulin Ratio Valproic Acid 12/07/16 12/08/16 20:11 07:19 WBC RBC Hgb Hct MCV MCH MCHC RDW Plt Count MPV Neut % (Auto) Lymph % (Auto) [place] % (Auto) Eos % (Auto) Baso % (Auto) Absolute Neuts (auto) Absolute Lymphs (auto) Absolute Monos (auto) Absolute Eos (auto) Absolute Basos (auto) Absolute Nucleated RBC Nucleated RBC % Sodium Potassium Chloride Carbon Dioxide Anion Gap BUN Creatinine Est GFR ( Amer) Est GFR (Non-Af Amer) BUN/Creatinine Ratio Glucose POC Glucose (mg/dL) 250 H 203 H Calcium Total Bilirubin AST ALT Alkaline Phosphatase Total Protein Albumin Globulin Albumin/Globulin Ratio Valproic Acid Exam Appearance: Obese Hygiene: Normal Grooming: Fairly Well Kept Psychomotor Activities: Normal Exhibits Abnormal Movement: No Attitude and Relatedness: Cooperative Eye Contact: Poor - Speech Quality: Unpressured Latencies: Normal Quantity: Appropriate Patient's Decription of Mood: "Good" Observed Affect: Fair Affect Consistent with: Euthymia Patient's Thought Process: Disorganized Thought Content: No Passive Wish, No Suicidal Planning, No Homicidal Ideation, No Paranoid Ideation Experiencing Hallucinations: No, Sensorium is Clear Type of Hallucinations: Visual: No, Auditory: No, Command: No Level of Consciousness: Alert Orientation: Yes Intact, Yes Orientated to Time, Yes Orientated to Place, Yes Orientated to Person Impulse Control: Tenuous Insight and Judgement: Impaired Impression - Impression Clinical Impression: 56 y.o. single, white male with a history of schizoaffective DO and recent pattern of recurrent hospitalizations for acute encephalopathy, related to cardio-pulmonary disfunction which is poorly controlled in the outpatient setting, who arrives via ambulance with symptoms of confusion and disorientation. He has medically and psychiatrically stabilized and is cleared for discharge to a nursing facility. Merits Inpatient Hospitalization: No Plan - Treatment Plan Treatment Plan: The patient is receiving fluphenazine 5mg PO BID for encephalopathy. He is also receiving Depakote 1000mg PO BID, olanzapine 20mg PO qhs, and paliperidone Sustenna 156mg IM q4wks (next dose 01/04/17). This is the patient's 5th medical admission of 2017 and it is clear that he cannot care for himself in the community. We recommend nursing placement for his safety. Psychiatry is signing off. Continued Medication Management: Continue Outpt Medication Medications: Current Medications Acetaminophen (Tylenol Tab*) 650 mg PO Q6H PRN PRN Reason: PAIN Last Admin: 12/03/16 17:21 Dose: 650 mg Albuterol (Ventolin 2.5 Mg/3 Ml Neb.Manisha*) 2.5 mg INH Q4H PRN PRN Reason: SHORTNESS OF BREATH Albuterol (Ventolin Hfa Inhaler*) 2 puff INH Q4H PRN PRN Reason: SHORTNESS OF BREATH Atorvastatin Calcium (Lipitor*) 20 mg PO BEDTIME [facility] Last Admin: 12/07/16 21:05 Dose: 20 mg Dextrose (D50w Syringe 50 Ml*) 12.5 gm IV PUSH .FOR FS < 60 - SS PRN PRN Reason: FS < 60 Divalproex Sodium (Depakote Dr Tab(*)) 1,000 mg PO BID [facility] Last Admin: 12/08/16 08:53 Dose: 1,000 mg Fluphenazine HCl (Prolixin Tab*) 5 mg PO Q6H PRN PRN Reason: Agitation/confusion Last Admin: 11/27/16 00:57 Dose: 5 mg Fluphenazine HCl (Prolixin Tab*) 5 mg PO BID [facility] Last Admin: 12/08/16 08:55 Dose: 5 mg Furosemide (Lasix Tab*) 20 mg PO DAILY [facility] Last Admin: 12/08/16 08:54 Dose: 20 mg Glipizide (Glucotrol Tab*) 5 mg PO BID [facility] Last Admin: 12/08/16 07:19 Dose: 5 mg Insulin Human Lispro (Humalog*) 0 units SUBCUT ACHS [facility] PRN Reason: Protocol Last Admin: 12/08/16 08:53 Dose: 4 unit Levothyroxine Sodium (Synthroid Tab*) 112 mcg PO 0600 [facility] Last Admin: 12/08/16 06:41 Dose: 112 mcg Lisinopril (Prinivil Tab*) 10 mg PO DAILY [facility] Last Admin: 12/08/16 08:53 Dose: 10 mg Magnesium Hydroxide (Milk Of Magnesia Liq*) 30 ml PO Q6H PRN PRN Reason: CONSTIPATION Magnesium Oxide (Magox 400 Tab*) 800 mg PO DAILY [facility] Last Admin: 12/08/16 08:53 Dose: 800 mg Mometasone Furoate/Formoterol Fumar (Dulera 200/5 Mdi*) 2 puff INH BID [facility] Last Admin: 12/08/16 07:36 Dose: 2 puff Nystatin (Nystatin Top Powder*) 1 applic TOPICAL BID [facility] Last Admin: 12/08/16 09:00 Dose: 1 applic Olanzapine (Zyprexa Tab*) 20 mg PO BEDTIME [facility] Last Admin: 12/07/16 21:07 Dose: 20 mg Omeprazole (Prilosec Cap*) 20 mg PO DAILY@0730 [facility] Last Admin: 12/08/16 08:54 Dose: 20 mg Rivaroxaban (Xarelto (*)) 20 mg PO DAILY [facility] Last Admin: 12/08/16 08:53 Dose: 20 mg Trazodone HCl (Desyrel Tab*) 50 mg PO BEDTIME PRN PRN Reason: SLEEP Last Admin: 12/04/16 00:01 Dose: 50 mg - Discharge Plan Discharge Plan: Outpatient Follow Up
[2016-12-08] MEDS: Acetaminophen TAB* 325 MG PO PRN (13:10)
--- NOTE | 2016-12-08 15:24 | PN ---
Subjective Date of Service: 12/08/16 Interval History: Pt seen and examined he has no complaints He is requesting baclofen to relax to "muscles in my stomach" he would also like to get more exercise Objective Active Medications: Acetaminophen (Tylenol Tab*) 650 mg PO Q6H PRN PRN Reason: PAIN Last Admin: 12/08/16 13:10 Dose: 650 mg Albuterol (Ventolin 2.5 Mg/3 Ml Neb.Manisha*) 2.5 mg INH Q4H PRN PRN Reason: SHORTNESS OF BREATH Albuterol (Ventolin Hfa Inhaler*) 2 puff INH Q4H PRN PRN Reason: SHORTNESS OF BREATH Atorvastatin Calcium (Lipitor*) 20 mg PO BEDTIME [facility] [place] Last Admin: 12/07/16 21:05 Dose: 20 mg Dextrose (D50w Syringe 50 Ml*) 12.5 gm IV PUSH .FOR FS < 60 - SS PRN PRN Reason: FS < 60 Divalproex Sodium (Depakote Dr Tab(*)) 1,000 mg PO BID [facility] [place] Last Admin: 12/08/16 08:53 Dose: 1,000 mg Fluphenazine HCl (Prolixin Tab*) 5 mg PO Q6H PRN PRN Reason: Agitation/confusion Last Admin: 11/27/16 00:57 Dose: 5 mg Fluphenazine HCl (Prolixin Tab*) 5 mg PO BID [facility] [place] Last Admin: 12/08/16 08:55 Dose: 5 mg Furosemide (Lasix Tab*) 20 mg PO DAILY [facility] [place] Last Admin: 12/08/16 08:54 Dose: 20 mg Glipizide (Glucotrol Tab*) 5 mg PO BID AC [facility] [place] Last Admin: 12/08/16 07:19 Dose: 5 mg Insulin Human Lispro (Humalog*) 0 units SUBCUT ACHS [facility] [place] PRN Reason: Protocol Last Admin: 12/08/16 13:09 Dose: 6 unit Levothyroxine Sodium (Synthroid Tab*) 112 mcg PO 0600 [facility] [place] Last Admin: 12/08/16 06:41 Dose: 112 mcg Lisinopril (Prinivil Tab*) 10 mg PO DAILY [facility] [place] Last Admin: 12/08/16 08:53 Dose: 10 mg Magnesium Hydroxide (Milk Of Magnesia Liq*) 30 ml PO Q6H PRN PRN Reason: CONSTIPATION Magnesium Oxide (Magox 400 Tab*) 800 mg PO DAILY [facility] [place] Last Admin: 12/08/16 08:53 Dose: 800 mg Mometasone Furoate/Formoterol Fumar (Dulera 200/5 Mdi*) 2 puff INH BID [facility] [place] Last Admin: 12/08/16 07:36 Dose: 2 puff Nystatin (Nystatin Top Powder*) 1 applic TOPICAL BID [facility] [place] Last Admin: 12/08/16 09:00 Dose: 1 applic Olanzapine (Zyprexa Tab*) 20 mg PO BEDTIME [facility] [place] Last Admin: 12/07/16 21:07 Dose: 20 mg Omeprazole (Prilosec Cap*) 20 mg PO DAILY@0730 [facility] [place] Last Admin: 12/08/16 08:54 Dose: 20 mg Rivaroxaban (Xarelto (*)) 20 mg PO DAILY [facility] [place] Last Admin: 12/08/16 08:53 Dose: 20 mg Trazodone HCl (Desyrel Tab*) 50 mg PO BEDTIME PRN PRN Reason: SLEEP Last Admin: 12/04/16 00:01 Dose: 50 mg Vital Signs 12/07/16 12/07/16 12/08/16 20:09 21:00 00:56 Temperature Pulse Rate 84 Respiratory 16 16 Rate Blood Pressure (mmHg) O2 Sat by Pulse 92 92 Oximetry 12/08/16 12/08/16 12/08/16 07:40 07:44 13:17 Temperature 97.7 F Pulse Rate 81 Respiratory 16 16 16 Rate Blood Pressure 122/56 (mmHg) O2 Sat by Pulse 92 Oximetry Oxygen Devices in Use Now: None - 02 sat 90% on RA Appearance: obese, sitting in chair, NAD Eyes: No Scleral Icterus, PERRLA Ears/Nose/Mouth/Throat: Mucous Membranes Moist Neck: NL Appearance and Movements; NL JVP, Trachea Midline Respiratory: Symmetrical Chest Expansion and Respiratory Effort, Clear to Auscultation Cardiovascular: RRR Abdominal: NL Sounds; No Tenderness; No Distention, No Hepatosplenomegaly Result Diagrams: 12/02/16 07:47 12/02/16 07:47 Additional Lab and Data: Lab Results 11/24/16 11/24/16 11/24/16 Range/Units 11:10 11:31 11:31 WBC 8.9 (3.5-10.8) 10^3/ul RBC 4.46 (4.0-5.4) 10^6/ul Hgb 12.8 L (14.0-18.0) g/dl Hct 39 L (42-52) % MCV 87 (80-94) fL MCH 29 (27-31) pg MCHC 33 (31-36) g/dl RDW 15 (10.5-15) % Plt Count 219 (150-450) 10^3/ul MPV 7 L (7.4-10.4) um3 Neut % (Auto) 80.3 (38-83) % Lymph % (Auto) 10.8 L (25-47) % [place] % (Auto) 5.5 (1-9) % Eos % (Auto) 1.6 (0-6) % Baso % (Auto) 1.8 (0-2) % Absolute Neuts (auto) 7.1 (1.5-7.7) 10^3/ul Absolute Lymphs (auto) 1.0 (1.0-4.8) 10^3/ul Absolute Monos (auto) 0.5 (0-0.8) 10^3/ul Absolute Eos (auto) 0.1 (0-0.6) 10^3/ul Absolute Basos (auto) 0.2 (0-0.2) 10^3/ul Absolute Nucleated RBC 0 10^3/ul Nucleated RBC % 0 Patient Temperature Not Reportable ABG pH 7.37 (7.35-7.45) ABG pCO2 54 H (35-45) mmHg ABG pO2 104 H (80-100) mmHg ABG HCO3 28.5 (19-31) mmol/L ABG O2 Saturation 98.7 H (95-98) % ABG Base Excess 4.7 H (-2.0-2.0) Respiration Rate Not Reportable O2 Delivery Device 2lnc Ventilator Type Not Reportable Vent Mode Not Reportable FiO2 Not Reportable Inspiratory Time Not Reportable PEEP Not Reportable Pressure Support Not Reportable Pressure Control Not Reportable EPAP Not Reportable IPAP Not Reportable BiPAP Not Reportable Sodium 138 (133-145) mmol/L Potassium 3.6 (3.5-5.0) mmol/L Chloride 100 L (101-111) mmol/L Carbon Dioxide 34 H (22-32) mmol/L Anion Gap 4 (2-11) mmol/L BUN 8 (6-24) mg/dL Creatinine 0.63 L (0.67-1.17) mg/dL Est GFR ( Amer) 169.4 (>60) Est GFR (Non-Af Amer) 131.7 (>60) BUN/Creatinine Ratio 12.7 (8-20) Glucose 161 H (70-100) mg/dL Lactic Acid (0.5-2.0) mmol/L Calcium 8.8 (8.6-10.3) mg/dL Magnesium 1.7 L (1.9-2.7) mg/dL Total Bilirubin 0.40 (0.2-1.0) mg/dL AST 13 (13-39) U/L ALT 15 (7-52) U/L Alkaline Phosphatase 63 (34-104) U/L Ammonia (16-53) mol/L Total Creatine Kinase 53 (10-223) U/L Troponin I 0.00 (<0.04) ng/mL C-Reactive Protein 16.14 H (< 5.00) mg/L Total Protein 6.8 (6.4-8.9) g/dL Albumin 3.9 (3.2-5.2) g/dL Globulin 2.9 (2-4) g/dL Albumin/Globulin Ratio 1.3 (1-3) TSH 2.26 (0.34-5.60) mcIU/mL Acetaminophen < 15 mcg/mL 11/24/16 11/24/16 Range/Units 11:31 11:31 WBC (3.5-10.8) 10^3/ul RBC (4.0-5.4) 10^6/ul Hgb (14.0-18.0) g/dl Hct (42-52) % MCV (80-94) fL MCH (27-31) pg MCHC (31-36) g/dl RDW (10.5-15) % Plt Count (150-450) 10^3/ul MPV (7.4-10.4) um3 Neut % (Auto) (38-83) % Lymph % (Auto) (25-47) % [place] % (Auto) (1-9) % Eos % (Auto) (0-6) % Baso % (Auto) (0-2) % Absolute Neuts (auto) (1.5-7.7) 10^3/ul Absolute Lymphs (auto) (1.0-4.8) 10^3/ul Absolute Monos (auto) (0-0.8) 10^3/ul Absolute Eos (auto) (0-0.6) 10^3/ul Absolute Basos (auto) (0-0.2) 10^3/ul Absolute Nucleated RBC 10^3/ul Nucleated RBC % Patient Temperature ABG pH (7.35-7.45) ABG pCO2 (35-45) mmHg ABG pO2 (80-100) mmHg ABG HCO3 (19-31) mmol/L ABG O2 Saturation (95-98) % ABG Base Excess (-2.0-2.0) Respiration Rate O2 Delivery Device Ventilator Type Vent Mode FiO2 Inspiratory Time PEEP Pressure Support Pressure Control EPAP IPAP BiPAP Sodium (133-145) mmol/L Potassium (3.5-5.0) mmol/L Chloride (101-111) mmol/L Carbon Dioxide (22-32) mmol/L Anion Gap (2-11) mmol/L BUN (6-24) mg/dL Creatinine (0.67-1.17) mg/dL Est GFR ( Amer) (>60) Est GFR (Non-Af Amer) (>60) BUN/Creatinine Ratio (8-20) Glucose (70-100) mg/dL Lactic Acid 0.8 (0.5-2.0) mmol/L Calcium (8.6-10.3) mg/dL Magnesium (1.9-2.7) mg/dL Total Bilirubin (0.2-1.0) mg/dL AST (13-39) U/L ALT (7-52) U/L Alkaline Phosphatase (34-104) U/L Ammonia 50 (16-53) mol/L Total Creatine Kinase (10-223) U/L Troponin I (<0.04) ng/mL C-Reactive Protein (< 5.00) mg/L Total Protein (6.4-8.9) g/dL Albumin (3.2-5.2) g/dL Globulin (2-4) g/dL Albumin/Globulin Ratio (1-3) TSH (0.34-5.60) mcIU/mL Acetaminophen mcg/mL Microbiology and Other Data: Microbiology 11/24/16 18:20 Nasal Screen MRSA (PCR)([facility]) - Final Nasal Mrsa Positive Assess/Plan/Problems-Billing Assessment: 56 yo with h/o schizophrenia /COPD, obesity hypoventilation syndrome , DM, admitted for his 5th time this year with this admission in the setting of acute delirium. His psychotropic medications have been adjusted and he is medically cleared for discharge but not deemed to be safe to care for himself in the community. He has demonstrated and inability to care for himself including but not limited to the acquisition and application of oxygen and medications that lead to medical decompensation (as in his hypercarbic respiratory failure in September) or psychiatric decompensation as was seen in his presentation this hospital stay. He requires placement in an a facility that can oversee his medication management as well as other activities of daily living including eating, bathing, and toileting. - Patient Problems (1) Schizo affective schizophrenia Comment: Continue fluphenazine, olanzapine, and Depakote as per psychiatry consult appreciate psychiatry f/u. Due to a combination of psychiatric and medical needs pt is unsafe to be discharged Medical problems are stable, today pt appears to be psychiatrically stable and back to his baseline (2) DM type 2 (diabetes mellitus, type 2) Comment: Continue glipizide and ISS (3) Altered mental status Comment: Improved but still not able to function at home, medical work-up negative Dr. Garibay following (4) Hypothyroidism Comment: TSH wnl 11/24/16. cont Synthroid (5) Obesity hypoventilation syndrome Comment: continue 02 at night (6) HTN (hypertension) Comment: controlled Continue furosemide/Lisinopril (7) Sinusitis Comment: possibly acute, present at admission. Treated with Augmentin, last dose on 12/04/16 Status and Disposition: halfway
[2016-12-08] MEDS: Atorvastatin* 20 MG TAB PO SCH (20:11)
[2016-12-08] MEDS: OLANzapine TAB* 10 MG PO SCH (20:12)
[2016-12-09] MEDS: Levothyroxine TAB* 112 MCG TAB PO SCH (05:23)
[2016-12-09] MEDS: Omeprazole CAP* 20 MG PO SCH (07:31)
[2016-12-09] MEDS: glipiZIDE TAB* 5 MG PO SCH ×2 (07:32→16:54)
[2016-12-09] MEDS: Mometasone/Formoter 200/5 MDI INH SCH ×2 (08:21→20:09)
[2016-12-09] MEDS: Divalproex DR TAB(*) 500 MG PO SCH ×2 (08:40→23:18)
[2016-12-09] MEDS: Magnesium Oxide TAB* 400 MG PO SCH (08:40)
[2016-12-09] MEDS: Furosemide TAB* 20 MG PO SCH (08:40)
[2016-12-09] MEDS: Rivaroxaban TAB(*) 20 MG TAB PO SCH (08:40)
[2016-12-09] MEDS: Lisinopril TAB* 10 MG PO SCH (08:41)
[2016-12-09] MEDS: Insulin LISPRO* 1 UNITS UNIT SUBCUT SCH ×4 (08:42→23:17)
[2016-12-09] MEDS: Nystatin TOP POWDER* 15 GM BTL TOPICAL SCH ×2 (08:42→23:19)
[2016-12-09] MEDS: fluPHENAZine HCL TAB* 5 MG PO SCH ×2 (08:42→23:19)
[2016-12-09] MEDS ORDERED: Saline NASAL SPRAY 0.65%* BTL BOTH NARES PRN (19:59)
[2016-12-09] MEDS ORDERED: Analgesic BALM* 114 GM TOPICAL PRN (20:01)
[2016-12-09] MEDS: Atorvastatin* 20 MG TAB PO SCH (23:18)
[2016-12-09] MEDS: OLANzapine TAB* 10 MG PO SCH (23:19)
[2016-12-10] MEDS: Levothyroxine TAB* 112 MCG TAB PO SCH (05:32)
[2016-12-10] MEDS: Omeprazole CAP* 20 MG PO SCH (08:02)
[2016-12-10] MEDS: fluPHENAZine HCL TAB* 5 MG PO SCH ×2 (08:03→22:59)
[2016-12-10] MEDS: Divalproex DR TAB(*) 500 MG PO SCH ×2 (08:03→22:59)
[2016-12-10] MEDS: Furosemide TAB* 20 MG PO SCH (08:03)
[2016-12-10] MEDS: glipiZIDE TAB* 5 MG PO SCH ×2 (08:03→16:52)
[2016-12-10] MEDS: Insulin LISPRO* 1 UNITS UNIT SUBCUT SCH ×4 (08:04→22:58)
[2016-12-10] MEDS: Lisinopril TAB* 10 MG PO SCH (08:04)
[2016-12-10] MEDS: Rivaroxaban TAB(*) 20 MG TAB PO SCH (08:04)
[2016-12-10] MEDS: Magnesium Oxide TAB* 400 MG PO SCH (08:04)
[2016-12-10] MEDS: Nystatin TOP POWDER* 15 GM BTL TOPICAL SCH ×2 (08:09→23:02)
[2016-12-10] MEDS: Mometasone/Formoter 200/5 MDI INH SCH ×2 (08:52→19:37)
[2016-12-10] MEDS: Atorvastatin* 20 MG TAB PO SCH (22:59)
[2016-12-10] MEDS: OLANzapine TAB* 10 MG PO SCH (23:00)
[2016-12-11] MEDS: Levothyroxine TAB* 112 MCG TAB PO SCH (07:13)
[2016-12-11] MEDS: glipiZIDE TAB* 5 MG PO SCH ×2 (08:23→17:43)
[2016-12-11] MEDS: Magnesium Oxide TAB* 400 MG PO SCH (08:24)
[2016-12-11] MEDS: Furosemide TAB* 20 MG PO SCH (08:24)
[2016-12-11] MEDS: Lisinopril TAB* 10 MG PO SCH (08:24)
[2016-12-11] MEDS: Rivaroxaban TAB(*) 20 MG TAB PO SCH (08:24)
[2016-12-11] MEDS: Omeprazole CAP* 20 MG PO SCH (08:24)
[2016-12-11] MEDS: Divalproex DR TAB(*) 500 MG PO SCH ×2 (08:25→22:45)
[2016-12-11] MEDS: Insulin LISPRO* 1 UNITS UNIT SUBCUT SCH ×4 (08:25→22:43)
[2016-12-11] MEDS: fluPHENAZine HCL TAB* 5 MG PO SCH ×2 (08:25→22:45)
[2016-12-11] MEDS: Nystatin TOP POWDER* 15 GM BTL TOPICAL SCH (08:26)
[2016-12-11] MEDS: Mometasone/Formoter 200/5 MDI INH SCH ×2 (08:37→20:01)
[2016-12-11] MEDS: metFORMIN* 500 MG TAB PO SCH (12:15)
[2016-12-11] MEDS: OLANzapine TAB* 10 MG PO SCH (22:44)
[2016-12-11] MEDS: Atorvastatin* 20 MG TAB PO SCH (22:44)
[2016-12-12] MEDS: Nystatin TOP POWDER* 15 GM BTL TOPICAL SCH ×3 (00:05→21:24)
[2016-12-12] MEDS: Levothyroxine TAB* 112 MCG TAB PO SCH (05:33)
[2016-12-12] MEDS: Omeprazole CAP* 20 MG PO SCH (08:53)
[2016-12-12] MEDS: Magnesium Oxide TAB* 400 MG PO SCH (08:53)
[2016-12-12] MEDS: Rivaroxaban TAB(*) 20 MG TAB PO SCH (08:53)
[2016-12-12] MEDS: metFORMIN* 500 MG TAB PO SCH (08:53)
[2016-12-12] MEDS: Furosemide TAB* 20 MG PO SCH (08:53)
[2016-12-12] MEDS: Insulin LISPRO* 1 UNITS UNIT SUBCUT SCH ×4 (08:53→21:29)
[2016-12-12] MEDS: glipiZIDE TAB* 5 MG PO SCH ×2 (08:53→17:57)
[2016-12-12] MEDS: fluPHENAZine HCL TAB* 5 MG PO SCH ×2 (08:53→21:16)
[2016-12-12] MEDS: Divalproex DR TAB(*) 500 MG PO SCH ×2 (08:53→21:15)
[2016-12-12] MEDS: Lisinopril TAB* 10 MG PO SCH (08:53)
[2016-12-12] MEDS: Mometasone/Formoter 200/5 MDI INH SCH ×2 (09:16→19:47)
[2016-12-12] MEDS ORDERED: Magnesium Hydroxide LIQ* 30 ML UDC PO PRN (14:56)
[2016-12-12] MEDS: Atorvastatin* 20 MG TAB PO SCH (21:15)
[2016-12-12] MEDS: OLANzapine TAB* 10 MG PO SCH (21:15)
[2016-12-13] MEDS: Levothyroxine TAB* 112 MCG TAB PO SCH (06:20)
[2016-12-13] MEDS: Magnesium Oxide TAB* 400 MG PO SCH (07:48)
[2016-12-13] MEDS: fluPHENAZine HCL TAB* 5 MG PO SCH (07:48)
[2016-12-13] MEDS: Lisinopril TAB* 10 MG PO SCH (07:48)
[2016-12-13] MEDS: metFORMIN* 500 MG TAB PO SCH (07:48)
[2016-12-13] MEDS: Omeprazole CAP* 20 MG PO SCH (07:48)
[2016-12-13] MEDS: Furosemide TAB* 20 MG PO SCH (07:48)
[2016-12-13] MEDS: Rivaroxaban TAB(*) 20 MG TAB PO SCH (07:48)
[2016-12-13] MEDS: Insulin LISPRO* 1 UNITS UNIT SUBCUT SCH ×2 (07:48→12:40)
[2016-12-13] MEDS: glipiZIDE TAB* 5 MG PO SCH (07:48)
[2016-12-13] MEDS: Divalproex DR TAB(*) 500 MG PO SCH (07:48)
[2016-12-13] MEDS: Nystatin TOP POWDER* 15 GM BTL TOPICAL SCH (07:51)
[2016-12-13 08:10] VITALS: BP 109/61
[2016-12-13] MEDS: Mometasone/Formoter 200/5 MDI INH SCH (08:37)
--- NOTE | 2016-12-13 13:24 | DS ---
CC: Dr. Loyola * DATE OF ADMISSION: 11/24/2016. DATE OF DISCHARGE: 12/13/2016. PRIMARY CARE PROVIDER: Dr. Loyola. PRIMARY DIAGNOSIS: Acute encephalopathy in the setting of uncontrolled schizoaffective disorder. SECONDARY DIAGNOSES: 1. Obesity hypoventilation syndrome. 2. Type 2 diabetes. 3. History of PE. 4. Morbid obesity. 5. COPD. 6. Chronic respiratory failure requiring 2 liters of oxygen. 7. Asthma. 8. Anxiety. 9. Depression. 10. Hypothyroidism. 11. Medication noncompliance. MEDICATIONS ON DISCHARGE: 1. Acetaminophen 650 mg every 6 hours as needed for pain or fever. 2. Omeprazole 20 mg daily. 3. Zyprexa 20 mg at bedtime. 4. Nystatin topical powder twice daily to affected areas, largely in folds of skin. 5. Levothyroxine 112 mcg daily. 6. Lasix 20 mg daily. 7. Albuterol ProAir and Albuterol nebulized solution every 4 hours as needed for shortness of breath or wheeze. 8. Glipizide 5 mg twice daily with meals. 9. Fluphenazine 2.5 mg daily. 10. Simvastatin 40 mg at bedtime. 11. Rivaroxaban 20 mg daily. 12. Metformin 500 mg twice daily. 13. Saline nasal spray 0.65% one spray both nares every 4 hours as needed for dry nose. 14. Dulera 200/5 two puffs twice daily. 15. Magnesium Oxide 800 mg daily. 16. Magnesium Hydroxide 30 ml daily as needed. 17. Lisinopril 10 mg daily. 18. Insulin Lispro sliding scale. 19. Depakote 1000 mg twice daily. HISTORY OF PRESENT ILLNESS AND HOSPITAL COURSE: This 56-year-old man with multiple hospital stays in the setting of recurrent acute encephalopathy after discharge from the hospital with inability to maintain own health status secondary to uncontrolled schizoaffective disorder, returned to the hospital this time again with confusion and disorientation. He was seen in consultation with Psychiatry who made several changes to the patient's medications, including the addition of Fluphenazine, the discontinuation of Zoloft, and the addition of Depakote. The patient towards the beginning of his hospital stay was more encephalopathic, episode of crawling naked on the floor, and difficult to control; however, over the last two weeks he has been increasingly calm, predominantly sits in his room and watches TV, and no aggressive behavior with himself or with staff. The medication changes have worked excellently for the patient. There were no other complications of the patient's hospital stay. He will be discharged with continue with oxygen for his obesity hypoventilation as well as COPD. He has had minimal requirement for his Albuterol as his COPD has been under well control. Metformin was added for diabetes and titrated up to 500 mg twice daily. This blood pressure was under good control on current medications. There were no complications of this patient's hospital stay. AT FOLLOW-UP, PLEASE: 1. Up titrate Metformin as tolerated. Last hemoglobin A1c was in July. Was requiring intermittent Lispro sliding scale on current dose of Metformin and Glipizide. 2. Follow blood pressure, adjust medications as necessary. 3. No other specific labs or vitals that need follow-up. Thank you for assistance in the care of this patient. Greater than 45 minutes were spent on the discharge of this patient with greater than half spent [id number] with the patient. [id number]/[facility] #: [id number] EDER
== END 2016-12-13 14:50 | DRG 885 ==
LOC: ED 10:08 → MED 14:59 → OBSVTOIN 15:10 → MED 16:49
PROVIDERS: ADMIT Internal Medicine; ATTEND Internal Medicine
DX: F25.9 Schizoaffective disorder, unspecified (principal); G93.40 Encephalopathy, unspecified; J96.10 Chronic respiratory failure, unspecified whether with hypoxia or hypercapnia; F05 Delirium due to known physiological condition; E66.2 Morbid (severe) obesity with alveolar hypoventilation; Z99.81 Dependence on supplemental oxygen; E11.9 Type 2 diabetes mellitus without complications; J32.9 Chronic sinusitis, unspecified; Z68.42 Body mass index [BMI] 45.0-49.9, adult; G47.33 Obstructive sleep apnea (adult) (pediatric); J44.9 Chronic obstructive pulmonary disease, unspecified; F41.9 Anxiety disorder, unspecified; F32.9 Major depressive disorder, single episode, unspecified; E03.9 Hypothyroidism, unspecified; G89.29 Other chronic pain; M54.9 Dorsalgia, unspecified; R60.0 Localized edema; E78.00 Pure hypercholesterolemia, unspecified; K21.9 Gastro-esophageal reflux disease without esophagitis; H26.9 Unspecified cataract; F17.210 Nicotine dependence, cigarettes, uncomplicated; Z79.4 Long term (current) use of insulin; Z87.442 Personal history of urinary calculi; Z98.41 Cataract extraction status, right eye; Z82.49 Family history of ischemic heart disease and other diseases of the circulatory system; Z83.3 Family history of diabetes mellitus; Z86.711 Personal history of pulmonary embolism; Z98.49 Cataract extraction status, unspecified eye; Z87.01 Personal history of pneumonia (recurrent); Z91.19 Patient's noncompliance with other medical treatment and regimen; Z88.8 Allergy status to other drugs, medicaments and biological substances; Z91.018 Allergy to other foods
CPT/HCPCS: 36415; 36600; 70450; 71010; 80053; 80164; 80329; 82140; 82550; 82803; 83605; 83735; 84443; 84484; 85025; 86140; 87641; 93005; 94640; 94760; 99406; A9270-GY; G0480